=== PATIENT | female | born 1940 | race Caucasian/White ===

== ENCOUNTER 2017-09-20 10:00 | Outpatient (RCR) | payer MEDICARE, SELFPAY | END 2017-10-01 | LOC: PT 10:00 | PROVIDERS: Visit Provider Nurse Practitioner Family | DX: L97.229 Non-pressure chronic ulcer of left calf with unspecified severity (principal) | CPT/HCPCS: G8990; G8991; G8992; 97161; 97597 ==

== ENCOUNTER → 2017-10-05 15:04 | Outpatient (CLI) | payer MEDICARE, SELFPAY ==
--- NOTE | 2017-10-05 15:31 | CT_ITS ---
CT chest wo con HISTORY: ITS.REASON: LUNG NODULES ORDERING PHYSICIAN: Antolin Ferrer MD PATIENT AGE: 77 years TECHNIQUE: Axial acquisition obtained without contrast. Axial, sagittal, and coronal reformatted images are generated and reviewed. COMPARISON: 06/29/2017 FINDINGS: There is a large hiatal hernia containing nearly the entire stomach as well as a loop of mid transverse colon. There is severe coronary artery calcification and/or stent noted. Normal heart size. There is contour deformity involving the posterior aspect of the heart from the large hiatal hernia. No mediastinal or hilar mass or adenopathy. There is a 7 mm nodule in the right middle lobe anteriorly and laterally. Assess unchanged. An additional 7 mm noncalcified nodule present in the right lower lobe along with a 6 mm subpleural nodular density in the right lower lobe. These nodules are unchanged. There are some atelectatic changes in the right lung base. A 3 mm noncalcified nodule present in the left lower lobe laterally and a 4 mm noncalcified nodule in left lower lobe laterally both and change. An additional 4 mm noncalcified nodule present in the left lower lobe laterally unchanged. No new nodules evident. No effusions or infiltrates. No acute bony anomalies. IMPRESSION: 1. Overall stable CT appearance of the chest. 2. No change bilateral noncalcified pulmonary nodules. Suggest continued 6 month follow-up. 3. Large hiatal hernia. 4. Coronary artery disease
== END ==
PROVIDERS: Family Provider Internal Medicine Adolescent Medicine; PCP Internal Medicine Adolescent Medicine; Visit Provider Internal Medicine Critical Care Medicine
DX: R91.8 Other nonspecific abnormal finding of lung field (principal)
CPT/HCPCS: 71250

== ENCOUNTER → 2018-10-11 09:24 | Outpatient (CLI) | payer MEDICARE, SELFPAY ==
--- NOTE | 2018-10-11 09:27 | MM_ITS ---
MM Dig screening mamm BI w/CAD ORDERING PHYSICIAN : Tara Marquis PATIENT AGE: 78 years GENDER: Female COMPARISON: January INDICATION: ITS.REASON: SCREENING no hormones. No new complaints. Noncontributory family history. Previous percutaneous biopsy right breast noted TECHNIQUE: Standard CC and MLO images were obtained. R2 CAD reviewed. FINDINGS: . Minimal residual fibroglandular elements towards anterior right and left breast Lower density breast with no dominant mass nor suspicious calcification. Vascular calcifications bilaterally RIGHT BREAST:No new findings Previous percutaneous biopsy evident superior breast. Small residual density here stable LEFT BREAST: No significant new findings. . minimal residual fibroglandular elements most evident anterior rest appear similar to studies dating back to 2011 Follow-up in one year -------- IMPRESSION: Stable bilateral mammogram. No new areas of concern. Follow-up in one year recommended BI-RADS Category: 1 Negative RECOMMENDED FOLLOW-UP: 1YR 1 YEAR FOLLOW-UP (A letter has been sent to the patient regarding results of the study.)
== END ==
PROVIDERS: PCP Nurse Practitioner Family; Visit Provider Nurse Practitioner Family
DX: Z12.31 Encounter for screening mammogram for malignant neoplasm of breast (principal)
CPT/HCPCS: 77067

== ENCOUNTER → 2019-05-04 14:21 | Outpatient (CLI) | payer MEDICARE, SELFPAY ==
--- NOTE | 2019-05-04 14:29 | CI_ITS ---
Cerebrovascular Exam Indications: 433.10 Occlusion/stenosis of carotid artery without cerebral infarction. 435.9 Unspecified transient cerebral ischemia. IMPRESSIONS 1. The bilateral vertebral arteries are patent with normal antegrade flow. 2. Study suggests less than 20% stenosis involving the right internal carotid artery and the left internal carotid artery. No change from the study of 14-Oct-2007. Carotid duplex study. Complete study and Doppler flow study including spectral analysis, color and wilcox scale imaging. Location: Vascular laboratory. Patient status: Outpatient. Tables: Arterial flow: + +--------+--------+ Location V sys V ed + +--------+--------+ Right CCA - proximal 70.7cm/s 16.5cm/s + +--------+--------+ Right CCA - distal 57.4cm/s 16.5cm/s + +--------+--------+ Right ECA 84.1cm/s -------- + +--------+--------+ Right ICA - proximal 72.3cm/s 22cm/s + +--------+--------+ Right ICA - mid 93.5cm/s 36.1cm/s + +--------+--------+ Right ICA - distal 74.7cm/s 29.4cm/s + +--------+--------+ Right vertebral 58.9cm/s -------- + +--------+--------+ Left CCA - proximal 95.1cm/s 34.6cm/s + +--------+--------+ Left CCA - distal 105cm/s 34.6cm/s + +--------+--------+ Left ECA 77.8cm/s -------- + +--------+--------+ Left ICA - proximal 80.1cm/s 22cm/s + +--------+--------+ Left ICA - mid 99.8cm/s 35.4cm/s + +--------+--------+ Left ICA - distal 95.1cm/s 42.4cm/s + +--------+--------+ Left vertebral 31.4cm/s -------- + +--------+--------+ Velocity ratios: + + + + + + Right, V sys Right, V ed Left, V sys Left, V ed + + + + + + Max ICA/dist CCA 1.63 2.19 0.95 1.23 + + + + + + (Report amended ) Electronically signed by: Arvin Lyon [id number]
== END ==
PROVIDERS: PCP Internal Medicine Adolescent Medicine; Visit Provider Nurse Practitioner Family
DX: R09.89 Other specified symptoms and signs involving the circulatory and respiratory systems (principal); R42 Dizziness and giddiness
CPT/HCPCS: 93880

== ENCOUNTER → 2019-07-13 13:00 | Outpatient (CLI) | payer MEDICARE, SELFPAY ==
--- NOTE | 2019-07-13 13:02 | CT_ITS ---
PROCEDURE: CT LUNG SCREENING CLINICAL INDICATION: HX TOBACCO USE Thirty pack-year smoking history, asymptomatic for lung cancer COMPARISON: CHWWO CT CHEST W/WO CONTRAST from 06/29/[address] chest wo con from 10/05/2017 TECHNIQUE: The exam was performed on a GE Light Speed [address] scanner using 2.90 mGy CTDI. A low dose helical CT CHEST was performed on a multi-detector scanner. All CT scans at the facility use one or more dose reduction, viz: automated exposure control, ma/kV adjustment per patient size (including targeted exams where dose is matched to indication, i.e. head), or iterative reconstruction technique. The LDCT was performed in a facility that meets the criteria for the screening program. Data regarding this exam was submitted to ACR which is an approved registry. The order for this exam indicates that it came as a result of a lung cancer screening counseling shard decision-making visit that included all the elements required of such a visit including smoking cessation. The radiologist interpreting this exam meets the CMS criteria for the LDCT lung cancer screening program. The exam is reported using the Lung-RADS classification scale and reported to the ACR registry. NOTE: This study was performed for the specific purposes of lung cancer screening and is not an alternative to diagnostic chest CT. RADIATION DOSE: CTDI vol(CT dose Index-volume) = 2.90mG DLP (Dose Length Product) = 94.03 mGcm FINDINGS: Stable subpleural nodular density right upper lobe anteriorly at 5 mm. There is a lobular noncalcified nodule in the right lower lobe posteriorly at 9 mm unchanged with an additional subpleural nodular density in the right lower lobe laterally at 6 mm unchanged. An additional 4 mm subpleural nodular density right lower lobe posteriorly unchanged there is some scarring in the left upper lobe which is unchanged and there are 2 small nodular opacities in the left lung base laterally which are 4 mm and are unchanged. No change 4 mm left lower lobe nodule laterally. Stable parenchymal opacity in the left upper lobe series 3, image 29 measuring 6 mm. No suspicious new nodules are evident. OTHER FINDINGS: There is an old right clavicular fracture. Coronary artery calcifications. Right breast calcification unchanged. Previously noted large hiatal hernia is no longer apparent. There is some thickening of the distal esophagus. Has the patient had an interval surgery? IMPRESSION: BI-RADS category 2 benign findings. Recommend 12 month LDCT follow-up Dictated by: Arvin Lyon MD 07/15/2019 10:20 Electronically signed by Arvin Lyon MD in [place] 07/15/2019 10:20
== END ==
PROVIDERS: PCP Internal Medicine Adolescent Medicine; Visit Provider Nurse Practitioner Family
DX: Z87.891 Personal history of nicotine dependence (principal); Z12.2 Encounter for screening for malignant neoplasm of respiratory organs

== ENCOUNTER → 2020-07-12 15:49 | Outpatient (CLI) | payer MEDICARE, SELFPAY ==
--- NOTE | 2020-07-12 15:53 | MM_ITS ---
PROCEDURE: MM DIG SCREENING MAMM BI W/CAD Digital Breast Tomosynthesis Included CLINICAL INDICATION: SCREENING There is a history of breast cancer in the patient's 2 sisters. There has been a previous biopsy right breast for benign disease. COMPARISON: MG [facility] DIG MAMM-SCREEN SISI from 01/10/2016 MG [facility] DIG MAMM-SCREEN SISI W/CAD from 08/16/2017 [facility] MM Dig screening mamm BI w/CAD from 10/11/2018 TECHNIQUE: Standard CC and MLO images and 3D Tomosynthesis was obtained. R2 CAD reviewed. FINDINGS: Mild scattered fibroglandular densities are seen in both breasts on a background of primarily fatty breast parenchyma. There are few scattered benign-appearing microcalcifications in each breast. There is a biopsy clip right breast. There is a mole marker on each breast. There is arterial calcification in each breast. There is no new or suspicious lesion in either breast and no suspicious microcalcifications. IMPRESSION: Fibrofatty parenchyma with no suspicious lesions seen BI-RAD Category: 2 Benign Finding(s) FOLLOW-UP: 1YR 1 Year Follow-up (A letter has been sent to the patient regarding results of the study.) Dictated by: Dr. Vishal Escobar MD 07/17/2020 08:17 Dr. Vishal Escobar MD in [place] 07/17/2020 08:17
== END ==
PROVIDERS: PCP Internal Medicine Adolescent Medicine; Visit Provider Nurse Practitioner Family
DX: Z12.31 Encounter for screening mammogram for malignant neoplasm of breast (principal)
CPT/HCPCS: 77063; 77067

== ENCOUNTER 2021-02-01 11:34 | Emergency (ER) | payer MEDICARE, SELFPAY ==
[2021-02-01] VITALS (12 sets, daily range): BP systolic 123–170; BP diastolic 58–80; PULSE 62–76; RESP 11–18; TEMP 36.5; O2SAT 98–99; BMI 23.8
[2021-02-01 11:52] LABS: POC Glucose,Bedside 227 (70-110)
--- NOTE | 2021-02-01 11:53 | CT_ITS ---
PROCEDURE INFORMATION: Exam: CT Head Without Contrast Exam date and time: 02/01/2021 11:53 AM Age: 80 years old Clinical indication: Altered mental status/memory loss; Patient HX: Confusion and weakness; Additional info: Confusion/lethargic TECHNIQUE: Imaging protocol: Computed tomography of the head without contrast. Radiation optimization: All CT scans at this facility use at least one of these dose optimization techniques: automated exposure control; mA and/or kV adjustment per patient size (includes targeted exams where dose is matched to clinical indication); or iterative reconstruction. Other technique: STROKE PROTOCOL was implemented. COMPARISON: No relevant prior studies available. FINDINGS: Brain: Prominent sulci. Patchy hypodensity of the cerebral white matter which are nonspecific but likely secondary to microangiopathic changes. Left basal ganglia lacunes. Cerebral ventricles: The ventricles are prominent secondary to diffuse volume loss/atrophy. Bones/joints: Unremarkable. No acute fracture. Paranasal sinuses: Visualized sinuses are unremarkable. No fluid levels. Mastoid air cells: Visualized mastoid air cells are well aerated. Soft tissues: Unremarkable. IMPRESSION: Chronic age related changes but no evidence of acute intracranial pathology. These findings were discussed with JAMES Burns at 12:15 p.m. EST. ASSESSMENT: ASPECTS ([place] Stroke Program Early CT Score) is 10.
--- NOTE | 2021-02-01 12:08 | XR_ITS ---
PROCEDURE INFORMATION: Exam: XR Chest Exam date and time: 02/01/2021 12:08 PM Age: 80 years old Clinical indication: Other: Weak; Additional info: Weak, confused TECHNIQUE: Imaging protocol: XR of the chest. Views: 1 view. COMPARISON: CR (CHEST AP, CHEST, CXR AP LANDSCAPE) 04/19/2019 11:50 AM FINDINGS: Lungs: No evidence of acute pulmonary process. Pleural spaces: Unremarkable. No pleural effusion. No pneumothorax. Heart/Mediastinum: Unremarkable. No cardiomegaly. Vasculature: There is mild tortuosity of the thoracic aorta. Diaphragm: Mild left hemidiaphragm elevation. Bones/joints: Mild degenerative changes of the shoulder joints. IMPRESSION: No evidence of acute pulmonary process.
--- NOTE | 2021-02-01 12:12 | HMH.EDGENADL ---
ED Disposition Clinical Impression: Altered mental status Qualifiers: Altered mental status type: somnolence Qualified Code(s): R40.0 - Somnolence Disposition: Home, Self-Care Condition on Discharge: Good Instructions: DI for Altered Mental Status Additional Instructions: Make sure you get plenty to eat today. Return to the emergency department if symptoms recur. No Ativan or alcohol for the remainder of today. Referrals: Tara Marquis APRN [Primary Care Provider] - - Critical Care Critical Care Time: No Attestation: On 02/01/21, the high probability of a clinically significant, sudden or life threatening deterioration of the following system(s) required my full and direct attention, intervention and personal management. The time I documented below is in addition to time spent performing reported procedures but includes the following listed in this critical care notation. Medical Decision Making - Terry Inquiry Pt receiving controlled substance: No Vital Signs: 02/01/21 11:35 02/01/21 12:16 02/01/21 12:30 Temperature 97.7 F Temperature Source Oral Pulse Rate 74 Pulse Rate [Left Radial] 76 Respiratory Rate 18 13 Blood Pressure 142/70 H 123/77 Blood Pressure [Right Arm] 132/58 L Blood Pressure Mean Blood Pressure Mean [Right Arm] 82 Blood Pressure Source Blood Pressure Source [Right Arm] Automatic Cuff Blood Pressure Position Blood Pressure Position [Right Arm] Sitting 02 Sat by Pulse Oximetry 98 98 Oxygen Delivery Method Room Air 02/01/21 13:00 02/01/21 13:45 02/01/21 14:01 Temperature Temperature Source Pulse Rate Pulse Rate [Left Radial] Respiratory Rate 11 L 18 12 Blood Pressure 147/72 H 136/63 159/71 H Blood Pressure [Right Arm] Blood Pressure Mean Blood Pressure Mean [Right Arm] Blood Pressure Source Blood Pressure Source [Right Arm] Blood Pressure Position Blood Pressure Position [Right Arm] 02 Sat by Pulse Oximetry Oxygen Delivery Method 02/01/21 14:30 02/01/21 15:00 02/01/21 15:31 Temperature Temperature Source Pulse Rate Pulse Rate [Left Radial] Respiratory Rate 13 14 16 Blood Pressure 168/80 H 170/75 H 155/69 H Blood Pressure [Right Arm] Blood Pressure Mean 97 Blood Pressure Mean [Right Arm] Blood Pressure Source Blood Pressure Source [Right Arm] Blood Pressure Position Blood Pressure Position [Right Arm] 02 Sat by Pulse Oximetry 98 Oxygen Delivery Method 02/01/21 16:00 02/01/21 16:30 02/01/21 17:27 Temperature 97.7 F Temperature Source Oral Pulse Rate 73 62 62 Pulse Rate [Left Radial] Respiratory Rate 17 17 Blood Pressure 165/75 H 159/76 H 159/76 H Blood Pressure [Right Arm] Blood Pressure Mean 106 103 Blood Pressure Mean [Right Arm] Blood Pressure Source Automatic Cuff Blood Pressure Source [Right Arm] Blood Pressure Position Sitting Blood Pressure Position [Right Arm] 02 Sat by Pulse Oximetry 99 98 Oxygen Delivery Method Room Air - Lab Data Lab Results 02/01/21 11:44: POC Glucose 227 H 02/01/21 12:54: WBC 4.7 L, RBC 3.81 L, Hgb 11.6 L, Hct 35.1 L, MCV 92.2, MCH 30.4, MCHC 32.9, RDW 13.6, Plt Count 148, MPV 10.8 H, Neut % (Auto) 65.5, Lymph % (Auto) 24.4, Ada % (Auto) 7.1, Eos % (Auto) 2.3, Baso % (Auto) 0.8, Neut # (Auto) 3.1, Lymph # (Auto) 1.1, Ada # (Auto) 0.3, Eos # (Auto) 0.1, Baso # (Auto) 0.0 02/01/21 12:54: Sodium 142, Potassium 3.8, Chloride 113 H, Carbon Dioxide 25, Anion Gap 7.8, BUN 32 H, Creatinine 1.20 H, Estimated Creat Clear 36, Estimated GFR 43 L, Est GFR ( Amer) 53 L, Glucose 66 L, Calcium 9.4, Total Bilirubin 0.5, AST 27, ALT 14, Alkaline Phosphatase 62, Troponin I < 0.01, Total Protein 6.6, Albumin 3.9, Globulin 2.7, Albumin/Globulin Ratio 1.4 02/01/21 12:54: Plasma/Serum Alcohol < 10 02/01/21 14:02: POC Glucose 230 H 02/01/21 15:51: Urine Color Yellow, Urine Appearance Cloudy, Urine pH 5.0, Ur Spe
--- NOTE | 2021-02-01 12:14 | PC.NURSE ---
[facility] calling at this time.
[2021-02-01 13:04] LABS: Basophils % 0.8 % (0.1-2.0); Eosinophils # 0.1 K/mm3 (0.0-0.4); Eosinophils % 2.3 % (0.1-12.0); Hematocrit 35.1 % (37.0-47.0); Hemoglobin 11.6 g/dL (12.2-16.2); Lymphocytes # 1.1 K/mm3 (0.7-4.5); Lymphocytes % 24.4 % (10-50); Mean Corpuscular HGB Conc 32.9 g/dL (31.8-35.4); Mean Corpuscular Hemoglobin 30.4 pg (27.0-31.2); Mean Corpuscular Volume 92.2 fl (81-99); Mean Platelet Volume 10.8 fl (7.4-10.4); Monocytes # 0.3 K/mm3 (0.1-1.0); Monocytes % 7.1 % (1.7-9.3); Neutrophils # 3.1 K/mm3 (1.8-7.8); Neutrophils % 65.5 % (37.0-80.0); Platelet Count 148 K/mm3 (142-424); Red Blood Count 3.81 M/mm3 (4.20-5.40); Red Cell Distribution Width 13.6 % (11.5-17.5); White Blood Count 4.7 K/mm3 (4.8-10.8)
[2021-02-01 13:08] LABS: Chloride 113 mmol/L (98-107)
[2021-02-01 13:09] LABS: Potassium 3.8 mmoL/L (3.5-5.1); Sodium 142 mmol/L (136-145)
[2021-02-01 13:11] LABS: Alanine Aminotransferase 14 U/L (12-78); Albumin Level 3.9 g/dl (3.5-5.0); Albumin/Globulin Ratio 1.4 (1.1-1.8); Alkaline Phosphatase 62 U/L (38-126); Anion Gap 7.8 mEq/L (5-15); Aspartate Amino Transferase 27 U/L (14-36); Bilirubin,Total 0.5 mg/dl (0.2-1.3); Blood Urea Nitrogen 32 mg/dl (7-17); Calcium 9.4 mg/dl (8.4-10.2); Carbon Dioxide 25 mmol/L (22.0-30.0); Creatinine Clearance Estimated 36 mL/min (50-200); Estimated Glomerular Filt Rate 43 ml/min (>60); GFR (African American) 53 ML/MIN (>60); Globulin 2.7 g/dL (1.3-3.2); Glucose 66 mg/dl (74-100); Total Protein,Serum 6.6 g/dl (6.3-8.2)
[2021-02-01 13:13] LABS: Ethyl Alcohol < 10 mg/dl (0-10)
[2021-02-01 13:28] LABS: Troponin I < 0.01 ng/ml (0.00-0.034)
--- NOTE | 2021-02-01 13:54 | ECG_ITS ---
APPROVED REPORT Exam: Resting ECG HR:56 bpm ECG Measurements Heart Rate 56 AXES NM 186 P 52 QRSd 76 QRS -11 QT 460 T 97 QTc 443 Conclusion Sinus bradycardia Possible Left atrial enlargement Abnormal QRS-T angle, consider primary T wave abnormality Abnormal ECG Electronically signed by : Srinivasan Smith, 02/02/2021 07:31:11
--- NOTE | 2021-02-01 14:03 | PC.NURSE ---
fsbs 230 upon recheck.
[2021-02-01 14:09] LABS: POC Glucose,Bedside 230 (70-110)
--- NOTE | 2021-02-01 14:11 | PC.NURSE ---
repeat random glucose drawn and sent to lab.
--- NOTE | 2021-02-01 15:18 | PC.NURSE ---
FSBS checked with another meter and it read 83. aware. He ordered meds and requested that pt eat. Pt is sitting up in bed eating peanut butter and crackers and drinking a pepsi.
--- NOTE | 2021-02-01 15:42 | PC.NURSE ---
Pt to restroom, pt is walking a lot better than she was upon arrival.
[2021-02-01 15:58] LABS: Microscopic, Urine URINE MICROSCOPIC (MICROSCOPIC)
[2021-02-01 16:00] LABS: Appearance,Urine CLOUDY (Clear); Bilirubin,Urine Negative (Negative); Blood, Urine 1+ (Negative); Color,Urine YELLOW (Yellow); Glucose,Urine (UA) Negative (Negative); Ketones,Urine Negative (Negative); Leukocyte Esterase,Urine 2+ (Negative); Nitrate,Urine POSITIVE (Negative); Protein,Urine TRACE (Negative); Specific Gravity, Urine >= 1.030 (1.005-1.030); Urobilinogen,Urine 0.2 EU/dl (0.2)
[2021-02-01 16:08] LABS: Bacteria,Urine 2+ /lpf; WBC,Urine 20-50 #/hpf (0-3)
[2021-02-01 16:12] LABS: Amphetamine/Metha Screen,Urine Negative ng/ml (<1000)
[2021-02-01 16:13] LABS: Barbiturates Screen,Urine Negative ng/ml (<200); Benzodiazepines Screen,Urine Positive ng/ml (<200)
[2021-02-01 16:14] LABS: Cannabinoid Screen,Urine Negative ng/ml (<50); Cocaine Screen,Urine Negative ng/ml (<300)
[2021-02-01 16:15] LABS: Methadone Screen,Urine Negative ng/ml (<300)
[2021-02-01 16:16] LABS: Opiate Screen,Urine Negative ng/ml (<300); Phencyclidine Screen,Urine Negative ng/ml (<25)
[2021-02-01 17:08] LABS: Troponin I < 0.01 ng/ml (0.00-0.034)
[2021-02-01 19:44] LABS: POC Glucose,Bedside 274 (70-110)
[2021-02-01 19:44] LABS: POC Glucose,Bedside 83 (70-110)
== END 2021-02-01 17:28 | disposition home or self-care (01) ==
PROVIDERS: Emergency Provider Emergency Medicine; PCP Nurse Practitioner Family
DX: R41.82 Altered mental status, unspecified (principal); T42.4X1A Poisoning by benzodiazepines, accidental (unintentional), initial encounter; Y92.89 Other specified places as the place of occurrence of the external cause; F10.10 Alcohol abuse, uncomplicated; E11.649 Type 2 diabetes mellitus with hypoglycemia without coma; R29.700 NIHSS score 0; I10 Essential (primary) hypertension; E78.5 Hyperlipidemia, unspecified; I25.10 Atherosclerotic heart disease of native coronary artery without angina pectoris
CPT/HCPCS: 36415; 70450; 71045; 80053; 80305; 81001; 82962; 84484; 85025; 87086; 87088; 87186; 93005; 96374; 99283

== ENCOUNTER → 2021-03-14 18:00 | Outpatient (CLI) | payer MEDICARE, SELFPAY ==
[2021-03-14 18:15] LABS: Basophils % 0.6 % (0.1-2.0); Eosinophils # 0.2 K/mm3 (0.0-0.4); Eosinophils % 3.2 % (0.1-12.0); Hematocrit 34.7 % (37.0-47.0); Hemoglobin 11.5 g/dL (12.2-16.2); Lymphocytes # 1.3 K/mm3 (0.7-4.5); Lymphocytes % 27.9 % (10-50); Mean Corpuscular HGB Conc 33.3 g/dL (31.8-35.4); Mean Corpuscular Volume 90.1 fl (81-99); Mean Platelet Volume 13.1 fl (7.4-10.4); Monocytes # 0.3 K/mm3 (0.1-1.0); Monocytes % 6.6 % (1.7-9.3); Neutrophils # 2.9 K/mm3 (1.8-7.8); Neutrophils % 61.7 % (37.0-80.0); Platelet Count 135 K/mm3 (142-424); Red Blood Count 3.85 M/mm3 (4.20-5.40); Red Cell Distribution Width 13.6 % (11.5-17.5); White Blood Count 4.7 K/mm3 (4.8-10.8)
[2021-03-14 18:21] LABS: Chloride 103 mmol/L (98-107); Potassium 4.8 mmoL/L (3.5-5.1); Sodium 137 mmol/L (136-145)
[2021-03-14 18:23] LABS: Alanine Aminotransferase 13 U/L (12-78); Aspartate Amino Transferase 26 U/L (14-36); Blood Urea Nitrogen 24 mg/dl (7-17); Estimated Glomerular Filt Rate 54 ml/min (>60); GFR (African American) 65 ML/MIN (>60)
[2021-03-14 18:24] LABS: Albumin Level 3.9 g/dl (3.5-5.0); Albumin/Globulin Ratio 1.6 (1.1-1.8); Alkaline Phosphatase 67 U/L (38-126); Anion Gap 11.8 mEq/L (5-15); Bilirubin,Total 0.6 mg/dl (0.2-1.3); Carbon Dioxide 27 mmol/L (22.0-30.0); Chol/HDL Ratio 1.8 (1-3.5); Cholesterol 140 mg/dl (140-200); Globulin 2.5 g/dL (1.3-3.2); Glucose 91 mg/dl (74-100); HDL Cholesterol 79 mg/dl (40-60); Total Protein,Serum 6.4 g/dl (6.3-8.2); Triglycerides 46 mg/dl (30-150); VLDL Cholesterol 9 mg/dL (0-40)
[2021-03-14 19:25] LABS: Direct LDL Cholesterol 51.14 mg/dL (100-129)
[2021-03-14 19:58] LABS: 25-OH Vitamin D, Total 31.3 ng/mL (30-100)
== END ==
PROVIDERS: Visit Provider Nurse Practitioner Family
DX: E11.69 Type 2 diabetes mellitus with other specified complication (principal); I10 Essential (primary) hypertension; E03.9 Hypothyroidism, unspecified; E55.9 Vitamin D deficiency, unspecified; D61.818 Other pancytopenia; R35.0 Frequency of micturition
CPT/HCPCS: 80053; 80061; 82306; 83036; 84443; 85025; 87086; 87088; 87186

== ENCOUNTER 2021-06-04 19:32 | Emergency (ER) | payer MEDICARE, SELFPAY ==
[2021-06-04 19:26] VITALS: BP 150/63; PULSE 88; RESP 20; TEMP 39.6; O2SAT 96; BMI 23.8
[2021-06-04 19:29] VITALS: BMI 26.6
--- NOTE | 2021-06-04 19:31 | XR_ITS ---
PROCEDURE INFORMATION: Exam: XR Chest Exam date and time: 06/04/2021 7:31 PM Age: 80 years old Clinical indication: Fever; Additional info: Fever, weakness TECHNIQUE: Imaging protocol: XR of the chest. Views: 2 views. COMPARISON: CR XR CHEST PORTABLE 02/01/2021 12:14 PM FINDINGS: Lungs: Borderline pulmonary hyperinflation, mild flattening of the right diaphragm particularly on the lateral view. No pulmonary consolidation. No definite acute findings. Pleural spaces: Unremarkable. No significant pleural effusion. No pneumothorax. Heart/Mediastinum: The cardiac silhouette is normal. Bones/joints: Osteopenia. There are spinal degenerative changes, with multilevel disc narrrowing and spondylosis. No acute appearing fracture or high-grade listhesis, as visualized. Old healed right clavicle fracture deformity. Gastrointestinal tract: Gaseous distention of multiple small intestinal loops in the epigastrium. No free intraperitoneal air is seen. Other findings: Overlying monitor technician electrodes. IMPRESSION: 1. No acute findings. 2. Multiple nonemergency and chronic findings as above.
[2021-06-04 19:40] LABS: Coronavirus 19, PCR Not Detected (NotDetected); Influenza A, PCR Not Detected (NotDetected); Influenza B, PCR Not Detected (NotDetected)
[2021-06-04 20:02] LABS: Basophils # 0.1 K/mm3 (0-0.2); Basophils % 0.8 % (0.1-2.0); Eosinophils % 0.4 % (0.1-12.0); Hematocrit 35.6 % (37.0-47.0); Hemoglobin 11.5 g/dL (12.2-16.2); Lymphocytes # 0.4 K/mm3 (0.7-4.5); Lymphocytes % 6.7 % (10-50); Mean Corpuscular HGB Conc 32.2 g/dL (31.8-35.4); Mean Corpuscular Hemoglobin 30.4 pg (27.0-31.2); Mean Corpuscular Volume 94.5 fl (81-99); Mean Platelet Volume 10.1 fl (7.4-10.4); Monocytes # 0.1 K/mm3 (0.1-1.0); Monocytes % 1.5 % (1.7-9.3); Neutrophils # 5.9 K/mm3 (1.8-7.8); Neutrophils % 90.5 % (37.0-80.0); Platelet Count 160 K/mm3 (142-424); Red Blood Count 3.77 M/mm3 (4.20-5.40); Red Cell Distribution Width 13.9 % (11.5-17.5); White Blood Count 6.6 K/mm3 (4.8-10.8)
[2021-06-04 20:04] LABS: Chloride 102 mmol/L (98-107); MANUAL DIFFERENTIAL MANUAL DIFFERENTIAL (MANUAL DIFF)
[2021-06-04 20:05] LABS: Potassium 4.4 mmoL/L (3.5-5.1); Sodium 136 mmol/L (136-145)
[2021-06-04 20:07] LABS: Alanine Aminotransferase 9 U/L (12-78); Alkaline Phosphatase 78 U/L (38-126); Aspartate Amino Transferase 21 U/L (14-36); Bilirubin,Total 0.8 mg/dl (0.2-1.3); Blood Urea Nitrogen 17 mg/dl (7-17); Creatinine Clearance Estimated 47 mL/min (50-200); Estimated Glomerular Filt Rate 48 ml/min (>60); GFR (African American) 58 ML/MIN (>60); Lactic Acid 1.2 mmol/L (0.7-2.1)
[2021-06-04 20:08] LABS: Albumin Level 3.4 g/dl (3.5-5.0); Albumin/Globulin Ratio 1.3 (1.1-1.8); Anion Gap 11.4 mEq/L (5-15); Calcium 8.7 mg/dl (8.4-10.2); Carbon Dioxide 27 mmol/L (22.0-30.0); Globulin 2.7 g/dL (1.3-3.2); Glucose 144 mg/dl (74-100); Total Protein,Serum 6.1 g/dl (6.3-8.2)
[2021-06-04 20:16] LABS: NT Pro Brain Natriuretic Pep. 782 pg/mL (0-450)
[2021-06-04 20:19] LABS: Troponin I 0.02 ng/ml (0.00-0.034)
[2021-06-04 20:26] LABS: Procalcitonin 0.321 ng/mL (0.0-2.0); T4 (Thyroxine) 5.6 ug/dl (5.53-11.0)
[2021-06-04 20:37] VITALS: BP 138/67; PULSE 87; O2SAT 95
[2021-06-04 20:39] LABS: Thyroid Stimulating Hormone 2.46 uIU/mL (0.465-4.68)
[2021-06-04 20:42] LABS: Microscopic, Urine URINE MICROSCOPIC (MICROSCOPIC)
[2021-06-04 20:55] LABS: Appearance,Urine CLEAR (Clear); Bilirubin,Urine Negative (Negative); Blood, Urine 2+ (Negative); Color,Urine YELLOW (Yellow); Glucose,Urine (UA) Negative (Negative); Ketones,Urine Negative (Negative); Leukocyte Esterase,Urine 2+ (Negative); Nitrate,Urine Negative (Negative); Protein,Urine 1+ (Negative); Urobilinogen,Urine 0.2 EU/dl (0.2)
[2021-06-04 20:55] LABS: Corrected White Blood Count 6.3 K/mm3 (4.8-10.8); Lymphocytes % 5 % (10-50); Monocytes % 2 % (2-9); Neutrophils % 93 % (42-76); Nucleated Red Blood Cells 5; Platelet Estimate Normal; RBC Morphology Normal; Total Cells Counted 100
[2021-06-04 20:58] VITALS: TEMP 37.7
[2021-06-04 21:00] VITALS: BP 107/45; PULSE 76; O2SAT 93
[2021-06-04 21:01] LABS: Erythrocyte Sedimentation Rate 47 mm/hr (0-30)
--- NOTE | 2021-06-04 21:11 | HMH.EDGENADL ---
ED Disposition Clinical Impression: Pyelonephritis Disposition: Home, Self-Care Condition on Discharge: Good Instructions: DI for Kidney Infection Additional Instructions: Take the entire course of the antibiotics and follow-up with your primary care provider in 2 to 3 days if fever persist. Turn to the ED for any new or worsening symptoms. Prescriptions: Cefdinir [Omnicef 300mg Capsule] 300 mg PO BID #20 cap [facility]: [id number] Ondansetron [Zofran 4mg ODT] 4 mg PO TIDP PRN 3 Days #9 tab PRN Reason: Nausea Transmission Status: [facility] to [facility] Referrals: Srinivasan Smith MD [Primary Care Provider] - Time of Disposition: 21:40 - Critical Care Critical Care Time: No Attestation: On 06/04/21, the high probability of a clinically significant, sudden or life threatening deterioration of the following system(s) required my full and direct attention, intervention and personal management. The time I documented below is in addition to time spent performing reported procedures but includes the following listed in this critical care notation. Medical Decision Making - Medical Records Medical records reviewed: Yes: I reviewed the patient's medical records. - Terry Inquiry Pt receiving controlled substance: No Vital Signs: 06/04/21 19:26 06/04/21 20:37 06/04/21 20:58 Temperature 103.2 F H 99.9 F H Temperature Source Oral Oral Pulse Rate 87 Pulse Rate [Bilateral Radial] 88 Respiratory Rate 20 Blood Pressure 138/67 Blood Pressure [Right Arm] 150/63 H Blood Pressure Mean [Right Arm] 92 Blood Pressure Source [Right Arm] Automatic Cuff Blood Pressure Position [Right Arm] Sitting 02 Sat by Pulse Oximetry 96 95 Oxygen Delivery Method Room Air Room Air 06/04/21 21:00 Temperature Temperature Source Pulse Rate 76 Pulse Rate [Bilateral Radial] Respiratory Rate Blood Pressure 107/45 L Blood Pressure [Right Arm] Blood Pressure Mean [Right Arm] Blood Pressure Source [Right Arm] Blood Pressure Position [Right Arm] 02 Sat by Pulse Oximetry 93 L Oxygen Delivery Method Room Air - Lab Data Lab Results 06/04/21 19:20: SARS-CoV-2 (PCR) Not detected, Influenza A Untype (PCR) Not detected, Influenza Type B (PCR) Not detected 06/04/21 19:30: WBC 6.6, Corrected WBC 6.3, RBC 3.77 L, Hgb 11.5 L, Hct 35.6 L, MCV 94.5, MCH 30.4, MCHC 32.2, RDW 13.9, Plt Count 160, MPV 10.1, Neut % (Auto) 90.5 H, Lymph % (Auto) 6.7 L, [place] % (Auto) 1.5 L, Eos % (Auto) 0.4, Baso % (Auto) 0.8, Neut # (Auto) 5.9, Lymph # (Auto) 0.4 L, [place] # (Auto) 0.1, Eos # (Auto) 0.0, Baso # (Auto) 0.1, Total Counted 100, Neutrophils % (Manual) 93 H, Lymphocytes % (Manual) 5 L, Monocytes % (Manual) 2, Nucleated RBCs 5, Platelet Estimate Normal, RBC Morphology Normal 06/04/21 19:30: Sodium 136, Potassium 4.4, Chloride 102, Carbon Dioxide 27, Anion Gap 11.4, BUN 17, Creatinine 1.10 H, Estimated Creat Clear 47, Estimated GFR 48 L, Est GFR ( Amer) 58 L, Glucose 144 H, Calcium 8.7, Total Bilirubin 0.8, AST 21, ALT 9 L, Alkaline Phosphatase 78, Troponin I 0.02, C-Reactive Protein 33.0 H, NT-Pro-B Natriuret Pep 782 H, Total Protein 6.1 L, Albumin 3.4 L, Globulin 2.7, Albumin/Globulin Ratio 1.3 06/04/21 19:30: Lactate 1.2 06/04/21 19:30: ESR 47 H 06/04/21 19:30: Procalcitonin 0.321, TSH 2.46, Thyroxine (T4) 5.6 06/04/21 20:37: Urine Color Yellow, Urine Appearance Clear, Urine pH 6.0, Ur Specific [place] 1.020, Urine Protein 1+, Urine Glucose (UA) Negative, Urine Ketones Negative, Urine Blood 2+, Urine Nitrate Negative, Urine Bilirubin Negative, Urine Urobilinogen 0.2, Ur Leukocyte Esterase 2+ A, Urine RBC 5-10, Urine WBC 10-20, Ur Squamous Epith Cells 3-5, Urine Bacteria 4+ Result diagrams: 06/04/21 19:30 06/04/21 19:30 Orders (Tests/Meds): ED MEDICATIONS Generic Name Dose Route Start Last Admin Trade Name Freq PRN Reason Stop Dose Admin Ceftriaxone Sodium 1 gm/ 50 mls @ 100
[2021-06-04 21:25] LABS: Bacteria,Urine 4+ /lpf
[2021-06-04 21:54] VITALS: BP 115/54; PULSE 72; RESP 18; TEMP 37.7; O2SAT 94
== END 2021-06-04 21:56 | disposition home or self-care (01) ==
PROVIDERS: Emergency Provider Student in an Organized Health Care Education/Training Program; PCP Internal Medicine Adolescent Medicine
DX: N10 Acute pyelonephritis (principal); B96.20 Unspecified Escherichia coli [E. coli] as the cause of diseases classified elsewhere; I25.10 Atherosclerotic heart disease of native coronary artery without angina pectoris; E11.9 Type 2 diabetes mellitus without complications; I10 Essential (primary) hypertension; E78.5 Hyperlipidemia, unspecified; R06.09 Other forms of dyspnea; Z20.822 Contact with and (suspected) exposure to COVID-19
CPT/HCPCS: 71046; 80053; 81001; 83605; 83880; 84145; 84436; 84443; 84484; 85007; 85025; 85651; 86140; 87040; 87086; 87088; 87186; 96374; 99284; U0003

== ENCOUNTER → 2022-03-19 10:19 | Outpatient (CLI) | payer MEDICARE, SELFPAY ==
--- NOTE | 2022-03-19 10:24 | MM_ITS ---
PROCEDURE INFORMATION: Exam: MG Bilateral Screening 3D Mammography Exam date and time: 03/19/2022 10:24 AM Age: 81 years old Clinical indication: Screening mammogram. TECHNIQUE: Imaging protocol: Bilateral Screening tomosynthesis and 2D mammography including computer-aided detection (CAD) when performed. COMPARISON: 1. MG MM DIG SCREENING MAMM BI W/CAD 07/12/2020 3:51 PM 2. MG [facility] MM Dig screening mamm BI w/CAD 10/11/2018 9:54 AM 3. MG DMSB DIG MAMM-SCREEN SISI W/CAD 08/16/2017 10:15 AM 4. MG DMSB DIG MAMM-SCREEN SISI 01/10/2016 3:41 PM FINDINGS: MAMMOGRAPHY: Breast composition: There are scattered areas of fibroglandular density. Mass: None. Architectural distortion: No new or suspicious architectural distortion. Calcifications: Stable benign-appearing calcifications are present. No new or suspicious cluster of microcalcifications have developed. Asymmetric density: No new or suspicious asymmetric density is present Skin thickening: None. Axillary adenopathy: None. IMPRESSION: No mammographic evidence of malignancy. Recommend annual screening mammography unless otherwise clinically indicated. ASSESSMENT: BI-RADS category 2: Benign
== END ==
PROVIDERS: PCP Internal Medicine Adolescent Medicine; Visit Provider Nurse Practitioner Family
DX: Z12.31 Encounter for screening mammogram for malignant neoplasm of breast (principal)
CPT/HCPCS: 77063; 77067

== ENCOUNTER → 2022-09-07 13:48 | Outpatient (CLI) | payer MEDICARE, SELFPAY ==
--- NOTE | 2022-09-07 13:54 | MR_ITS ---
FINAL REPORT CLINICAL HISTORY: Memory loss FINDINGS: Multiplanar MR imaging of the brain was performed without contrast. 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 There is mild age-appropriate atrophy. There are scattered foci of increased T2 signal in the cerebral white matter that have a nonspecific appearance but likely represent moderate chronic ischemic/gliotic changes. There is no evidence of intracranial hemorrhage or mass. No abnormal ventricular dilatation is identified. No abnormal extra-axial fluid collection is seen. No abnormality is seen on the diffusion weighted images. The posterior fossa and brainstem are unremarkable. Normal major vessel vascular flow voids are seen. IMPRESSION: Age-appropriate atrophy and mild chronic ischemic/gliotic changes. No acute intracranial abnormality. Reviewed, Interpreted and Dictated by Shashank Farr III, MD Transcribed by Monae Stinson Authenticated and [facility]
== END ==
PROVIDERS: PCP Internal Medicine Adolescent Medicine; Visit Provider Specialist
DX: G31.84 Mild cognitive impairment of uncertain or unknown etiology (principal)
CPT/HCPCS: 70551

== ENCOUNTER → 2022-10-12 12:33 | Outpatient (CLI) | payer MEDICARE, SELFPAY ==
[2022-10-12 13:33] LABS: Basophils % 0.6 % (0.1-2.0); Eosinophils # 0.2 K/mm3 (0.0-0.4); Hematocrit 37.7 % (37.0-47.0); Lymphocytes # 1.4 K/mm3 (0.7-4.5); Lymphocytes % 26.9 % (10-50); Mean Corpuscular HGB Conc 31.8 g/dL (31.8-35.4); Mean Corpuscular Hemoglobin 29.1 pg (27.0-31.2); Mean Corpuscular Volume 91.4 fl (81-99); Mean Platelet Volume 10.4 fl (7.4-10.4); Monocytes # 0.3 K/mm3 (0.1-1.0); Monocytes % 5.7 % (1.7-9.3); Neutrophils # 3.2 K/mm3 (1.8-7.8); Neutrophils % 63.7 % (37.0-80.0); Platelet Count 149 K/mm3 (142-424); Red Blood Count 4.12 M/mm3 (4.20-5.40); Red Cell Distribution Width 14.1 % (11.5-17.5); White Blood Count 5.1 K/mm3 (4.8-10.8)
[2022-10-12 13:51] LABS: Alanine Aminotransferase 13 U/L (12-78); Albumin Level 3.9 g/dl (3.5-5.0); Albumin/Globulin Ratio 1.3 (1.1-1.8); Alkaline Phosphatase 94 U/L (38-126); Anion Gap 10.5 mEq/L (5-15); Aspartate Amino Transferase 25 U/L (14-36); Bilirubin,Total 0.3 mg/dl (0.2-1.3); Blood Urea Nitrogen 27 mg/dl (7-17); Calcium 9.4 mg/dl (8.4-10.2); Carbon Dioxide 29 mmol/L (22.0-30.0); Chloride 104 mmol/L (98-107); Estimated Glomerular Filt Rate 43 ml/min (>60); GFR (African American) 52 ML/MIN (>60); Glucose 101 mg/dl (74-100); Potassium 4.5 mmoL/L (3.5-5.1); Sodium 139 mmol/L (136-145); Total Protein,Serum 6.9 g/dl (6.3-8.2)
[2022-10-12 14:21] LABS: Thyroid Stimulating Hormone 1.76 uIU/mL (0.465-4.68)
[2022-10-12 14:26] LABS: Erythrocyte Sedimentation Rate 28 mm/hr (0-30)
[2022-10-12 14:57] LABS: Vitamin B12 900 pg/mL (239-931)
[2022-10-13 13:54] LABS: Rapid Plasma Reagin Ab Titer Non Reactive (NonRea<1:1)
[2022-10-13 14:30] LABS: Anti-Centromere B Antibodies <0.2 AI (0.0-0.9); Anti-DNA (DS) Ab Qn 2 IU/mL (0-9); Anti-Jo-1 <0.2 AI (0.0-0.9); Anti-Smith Antibody <0.2 AI (0.0-0.9); Antichromatin Antibodies 0.6 AI (0.0-0.9); Antiscleroderma-70 Antibodies <0.2 AI (0.0-0.9); RNP Antibodies 0.3 AI (0.0-0.9); Sjogren's Anti-SS-A <0.2 AI (0.0-0.9); Sjogren's Anti-SS-B <0.2 AI (0.0-0.9)
== END ==
PROVIDERS: PCP Internal Medicine Adolescent Medicine; Visit Provider Specialist
DX: R40.0 Somnolence (principal); E03.9 Hypothyroidism, unspecified; E78.5 Hyperlipidemia, unspecified; G31.84 Mild cognitive impairment of uncertain or unknown etiology; G47.33 Obstructive sleep apnea (adult) (pediatric); R07.9 Chest pain, unspecified
CPT/HCPCS: 36415; 80053; 82607; 82746; 84443; 85025; 85651; 86225; 86235; 86593

== ENCOUNTER 2022-10-19 11:45 | Observation (INO) | payer MEDICARE, SELFPAY ==
[2022-10-19] VITALS (8 sets, daily range): BP systolic 160–193; BP diastolic 68–101; PULSE 71–103; RESP 16–20; TEMP 36.6–37.1; O2SAT 96–100; BMI 22.1; BMI 22.3
[2022-10-19 12:30] LABS: Basophils % 0.3 % (0.1-2.0); Eosinophils % 0.1 % (0.1-12.0); Hematocrit 38.5 % (37.0-47.0); Hemoglobin 12.5 g/dL (12.2-16.2); Lymphocytes # 0.9 K/mm3 (0.7-4.5); Lymphocytes % 11.1 % (10-50); Mean Corpuscular HGB Conc 32.5 g/dL (31.8-35.4); Mean Corpuscular Hemoglobin 28.8 pg (27.0-31.2); Mean Corpuscular Volume 88.5 fl (81-99); Mean Platelet Volume 11.2 fl (7.4-10.4); Monocytes # 0.2 K/mm3 (0.1-1.0); Monocytes % 2.9 % (1.7-9.3); Neutrophils # 7.1 K/mm3 (1.8-7.8); Neutrophils % 85.5 % (37.0-80.0); Platelet Count 149 K/mm3 (142-424); Red Blood Count 4.36 M/mm3 (4.20-5.40); Red Cell Distribution Width 14.4 % (11.5-17.5); White Blood Count 8.3 K/mm3 (4.8-10.8)
--- NOTE | 2022-10-19 12:30 | HMH.EDUROGF ---
Discharge Plan Disposition Patient Disposition: Admitted as Observation Chief Complaint: Urogenital-Female Clinical Impressions Clinical Impression: Acute UTI (urinary tract infection), Acute delirium, ASHLEY (acute kidney injury) Discharge ED Provider: Eliu Mckinley Female Urogenital HPI General Chief complaint: Urogenital-Female Stated complaint: Physician referral, Possible UTI dehydration Time Seen by Provider: 10/19/22 12:30 Mode of Arrival: Ambulatory Source of Information: Patient, Relative and Medical Record Limitations: No Limitations Description of Symptoms (Recalled from ER Triage Doc. by RN): pt comes in from pcp office. pt was seen wednesday for possible urine or kidney infection, and hallucinations. the hallucinations began wednesday after the pcp appt. the last episode was last night. pt feels that she is dehydrated. History of Present Illness HPI Narrative: wf sent from pcp office for confusion and dec po intake - pt has been treated for uti - family reports continued sx - reports from cooper obtained and reviewed - MD Complaint: UTI and other (confusion) Onset (ago): day(s) Severity: moderate Related Data Home Medications Medication Instructions Recorded Confirmed amlodipine 10 mg tablet 10 mg PO DAILY blood pressure 10/18/18 10/12/22 aspirin 81 mg tablet,delayed 81 mg PO DAILY thinner 10/18/18 10/12/22 release (Aspir-) carvedilol 12.5 mg tablet 12.5 mg PO BID blood pressure 10/18/18 10/12/22 escitalopram oxalate 10 mg tablet 10 mg PO DAILY Anxiety 10/18/18 10/12/22 metformin 500 mg tablet,extended 500 mg PO DAILY Diabetes 10/18/18 10/12/22 release 24 hr (Glucophage XR) biotin 2,500 mcg capsule 2,500 mcg PO DAILY daily 06/04/21 10/12/22 fish oil-dha-epa 1,200 mg-144 1 each PO DAILY Supplement 06/04/21 10/12/22 mg-216 mg capsule atorvastatin 20 mg tablet 80 mg PO DAILY Cholesterol 08/20/22 10/12/22 isosorbide mononitrate 30 mg 30 mg PO DAILY 08/20/22 10/12/22 tablet,extended release 24 hr levothyroxine 100 mcg tablet 125 mcg PO DAILY thyroid 08/20/22 10/12/22 levofloxacin 500 mg tablet 500 mg PO DAILY Infection 10/19/22 10/19/22 Previous Rx's Medication Instructions Recorded ondansetron 4 mg disintegrating 4 mg PO TIDP PRN Nausea 3 days #9 06/04/21 tablet tabs Allergies Allergy/AdvReac Type Severity Reaction Status Date / Time No Known Drug Allergies Allergy Unknown Verified 08/20/22 10:23 [NKDA] [facility] Disclaimer: The information contained in this section may have been updated after the patient was seen, as this information can be updated by other users. Family History (Updated 08/20/22 @ 10:29 by Odilia Ny) Diabetes Coronary artery disease Heart attack Cancer Stroke Social History (Updated 08/20/22 @ 10:30 by Odilia Ny) Smoking Status: Former smoker alcohol intake: current substance use type: denies use current occupational status: employed Travel in the last 8 weeks: None household members: spouse housing: house marital status: number of children: 2 caffeine: No ROS Obtained: Yes All systems reviewed & no additional complaints except as documented Physical Exam General General appearance: alert Head Head exam: normocephalic Eye Eye exam: Present PERRL and EOMI ENT ENT exam: Present mucous membranes moist Neck Neck exam: Present trachea midline Respiratory Respiratory exam: Absent respiratory distress Cardiovascular Cardiovascular exam: Present regular rate and systolic murmur Abdominal Exam Abdominal exam: Present soft; Absent tenderness Extremities Exam Extremities exam: Absent joint swelling Back Exam Back exam: Absent CVA tenderness (R) or CVA tenderness (L) Neurological Exam Neurological exam: Present alert and CN II-XII intact; Absent oriented X3 or motor sensory deficit Psychiatric Psychiatric exam: Present normal affect Skin Skin exam: Absent rash Medical Decision Making Medical Records Ia
[2022-10-19 12:32] LABS: Alanine Aminotransferase 35 U/L (12-78); Albumin Level 4.5 g/dl (3.5-5.0); Albumin/Globulin Ratio 1.2 (1.1-1.8); Alkaline Phosphatase 85 U/L (38-126); Anion Gap 14.8 mEq/L (5-15); Aspartate Amino Transferase 47 U/L (14-36); Bilirubin,Total 0.8 mg/dl (0.2-1.3); Blood Urea Nitrogen 45 mg/dl (7-17); Calcium 9.6 mg/dl (8.4-10.2); Carbon Dioxide 23 mmol/L (22.0-30.0); Chloride 103 mmol/L (98-107); Creatinine Clearance Estimated 19 mL/min (50-200); Estimated Glomerular Filt Rate 23 ml/min (>60); GFR (African American) 27 ML/MIN (>60); Globulin 3.7 g/dL (1.3-3.2); Glucose 108 mg/dl (74-100); Potassium 3.8 mmoL/L (3.5-5.1); Sodium 137 mmol/L (136-145); Total Protein,Serum 8.2 g/dl (6.3-8.2)
[2022-10-19 12:33] LABS: MANUAL DIFFERENTIAL MANUAL DIFFERENTIAL (MANUAL DIFF)
[2022-10-19 12:59] LABS: Lymphocytes % 11 % (10-50); Monocytes % 4 % (2-9); Neutrophils % 85 % (42-76); Platelet Estimate Normal; RBC Morphology Normal; Total Cells Counted 100
--- NOTE | 2022-10-19 13:39 | PC.NURSE ---
dr masters spoke with dr damon
--- NOTE | 2022-10-19 13:51 | PC.NURSE ---
CRUZ ARVIZU SPEAKING WITH DR HERMOSILLO FOR ADMISSION
[2022-10-19 13:55] LABS: Microscopic, Urine URINE MICROSCOPIC (MICROSCOPIC)
[2022-10-19 13:56] LABS: Appearance,Urine SL CLOUDY (Clear); Bilirubin,Urine Negative (Negative); Blood, Urine 2+ (Negative); Color,Urine YELLOW (Yellow); Glucose,Urine (UA) Negative (Negative); Ketones,Urine 1+ (Negative); Leukocyte Esterase,Urine 3+ (Negative); Nitrate,Urine Negative (Negative); PH,Urine 5.5 (5.0-8.5); Protein,Urine TRACE (Negative); Urobilinogen,Urine 0.2 EU/dl (0.2)
--- NOTE | 2022-10-19 13:57 | PC.NURSE ---
case management called for admission
[2022-10-19 14:07] LABS: Bacteria,Urine 3+ /lpf; Squamous Epithelial Cell,Urine Occasional #/hpf (0-5); WBC,Urine TNTC #/hpf (0-3)
--- NOTE | 2022-10-19 14:29 | PC.NURSE ---
REPORT GIVEN TO Carli BYERS RN
--- NOTE | 2022-10-19 14:51 | PC.NURSE ---
PER GILBERTO IN LAB, COVID SWAB HAS APPROX 2-3 MINS LEFT UNTIL RESULTS
[2022-10-19 14:52] LABS: Coronavirus 19, PCR Not Detected (NotDetected); Influenza A, PCR Not Detected (NotDetected); Influenza B, PCR Not Detected (NotDetected)
--- NOTE | 2022-10-19 15:10 | PC.NURSE ---
arrived to floor by wheelchair from ED
--- NOTE | 2022-10-19 18:36 | PC.NURSE ---
pt unable to verify home medications, daughter to bring home medications
--- NOTE | 2022-10-19 21:04 | EXP.HP ---
History of Present Illness *Admission Date: 10/19/22 *Reason for visit:: Confusion, UTI *History of present illness: Pleasant 82-year-old female with a recent diagnosis of UTI by her PCP last Wednesday. Has been having intermittent hallucinations and mild confusion since Wednesday. Presents with her daughter. States that she has not been acting herself. Admits to taking her 's antidepressant which she thought was Lexapro (daughter shows a picture of a bottle of alprazolam). Was initiated on Levaquin for UTI. Cultures obtained at [facility] on Wednesday which grew positive for ESBL E. coli. Patient denies dysuria, fever, nausea, vomiting. States she has noted she is not herself however. Has been having visual hallucinations daily seeing bugs including ants yesterday which she took a picture of that were not in the picture. Presented to the ER at the recommendation of her PCP when she had repeat labs today showing worsening ASHLEY. Admitted to medicine for further management. On arrival to the floor, patient is pleasant and appears alert and oriented. Denies any chest pain or shortness of breath. Tolerating dinner. Daughter at bedside who helps give history and review of systems. Patient recognizes she has not been herself lately. She has been under a lot of stress as well caring for her who is legally blind [facility] Disclaimer: The information contained in this section may have been updated after the patient was seen, as this information can be updated by other users. Family History Diabetes Coronary artery disease Heart attack Cancer Stroke Social History Smoking Status: Former smoker alcohol intake: current substance use type: denies use current occupational status: employed Travel in the last 8 weeks: None household members: spouse housing: house marital status: number of children: 2 caffeine: No Review of Systems Review of Systems Review of systems (narrative): 14 point review of systems performed, pertinent positives and negatives as per HPI Meds Home Medications and Allergies Home Medications Medication Instructions Recorded Confirmed Type amlodipine 10 mg tablet 10 mg PO DAILY blood pressure 10/18/18 10/12/22 History aspirin 81 mg tablet,delayed 81 mg PO DAILY thinner 10/18/18 10/12/22 History release (Aspir-) carvedilol 12.5 mg tablet 12.5 mg PO BID blood pressure 10/18/18 10/12/22 History escitalopram oxalate 10 mg tablet 10 mg PO DAILY Anxiety 10/18/18 10/12/22 History metformin 500 mg tablet,extended 500 mg PO DAILY Diabetes 10/18/18 10/12/22 History release 24 hr (Glucophage XR) biotin 2,500 mcg capsule 2,500 mcg PO DAILY daily 06/04/21 10/12/22 History fish oil-dha-epa 1,200 mg-144 1 each PO DAILY Supplement 06/04/21 10/12/22 History mg-216 mg capsule ondansetron 4 mg disintegrating 4 mg PO TIDP PRN Nausea 3 days #9 06/04/21 10/12/22 Rx tablet tabs atorvastatin 20 mg tablet 80 mg PO DAILY Cholesterol 08/20/22 10/12/22 History isosorbide mononitrate 30 mg 30 mg PO DAILY 08/20/22 10/12/22 History tablet,extended release 24 hr levothyroxine 100 mcg tablet 125 mcg PO DAILY thyroid 08/20/22 10/12/22 History levofloxacin 500 mg tablet 500 mg PO DAILY Infection 10/19/22 10/19/22 History New Prescriptions to Start Prescriptions: Allergies Allergy/AdvReac Type Severity Reaction Status Date / Time No Known Drug Allergies Allergy Unknown Verified 08/20/22 10:23 [NKDA] Exam Data for Last 24 hours Vital signs and Labs for Last 24 Hours: Temp Pulse Resp BP Pulse Ox 98.1 F 71 17 171/68 H 96 10/19/22 20:00 10/19/22 20:00 10/19/22 20:00 10/19/22 20:00 10/19/22 20:00 Laboratory Results - last 24 hr 10/19/22 12:00: WBC 8.3, RBC 4.36, Hgb 12.5, Hct 38.5, MCV 88.5, MCH 28.8, MCHC 32.5, RDW 14.4, Plt Count 149, MPV
--- NOTE | 2022-10-19 21:38 | PC.NURSE ---
Resp called to place pt. on a CPAP.
[2022-10-20 04:00] VITALS: BP 167/71; PULSE 64; RESP 16; TEMP 36.7; O2SAT 96; BMI 22.7
--- NOTE | 2022-10-20 04:50 | PC.NURSE ---
Pt. had no changes throughout the night.
[2022-10-20 07:29] LABS: Basophils % 0.4 % (0.1-2.0); Eosinophils # 0.1 K/mm3 (0.0-0.4); Eosinophils % 0.9 % (0.1-12.0); Lymphocytes # 1.2 K/mm3 (0.7-4.5); Lymphocytes % 23.7 % (10-50); Mean Corpuscular HGB Conc 33.8 g/dL (31.8-35.4); Mean Corpuscular Hemoglobin 29.3 pg (27.0-31.2); Mean Corpuscular Volume 86.8 fl (81-99); Mean Platelet Volume 11.6 fl (7.4-10.4); Monocytes # 0.4 K/mm3 (0.1-1.0); Monocytes % 6.8 % (1.7-9.3); Neutrophils # 3.6 K/mm3 (1.8-7.8); Neutrophils % 68.2 % (37.0-80.0); Platelet Count 120 K/mm3 (142-424); Red Blood Count 3.68 M/mm3 (4.20-5.40); Red Cell Distribution Width 14.6 % (11.5-17.5); White Blood Count 5.2 K/mm3 (4.8-10.8)
[2022-10-20 07:33] LABS: Alanine Aminotransferase 10 U/L (12-78); Albumin Level 3.3 g/dl (3.5-5.0); Albumin/Globulin Ratio 1.2 (1.1-1.8); Alkaline Phosphatase 72 U/L (38-126); Anion Gap 11.7 mEq/L (5-15); Aspartate Amino Transferase 28 U/L (14-36); Bilirubin,Total 0.4 mg/dl (0.2-1.3); Blood Urea Nitrogen 32 mg/dl (7-17); Carbon Dioxide 23 mmol/L (22.0-30.0); Chloride 108 mmol/L (98-107); Creatinine Clearance Estimated 28 mL/min (50-200); Estimated Glomerular Filt Rate 36 ml/min (>60); GFR (African American) 44 ML/MIN (>60); Globulin 2.8 g/dL (1.3-3.2); Glucose 78 mg/dl (74-100); Magnesium 1.2 mg/dl (1.6-2.3); Potassium 3.7 mmoL/L (3.5-5.1); Sodium 139 mmol/L (136-145); Total Protein,Serum 6.1 g/dl (6.3-8.2)
[2022-10-20 08:00] VITALS: BP 156/73; PULSE 63; RESP 20; TEMP 36.9; O2SAT 96
--- NOTE | 2022-10-20 11:25 | HMH.PTEV ---
Physical Therapy Evaluation Rehab PT IP Evaluation Start: 10/20/22 11:12 Freq: ONCE Status: Active Protocol: Document 10/20/22 11:22 LORIEVenturaPETER (Rec: 10/20/22 11:25 PHOTARI [id number]) Subjective/History History History 82 yowf adm to [facility] with UTI, ASHLEY. 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 She is generally independent with all mobility and does not use an AD at baseline. Subjective Subjective Pt reports feeling much better this am. Rehab PT IP Eval Objective Appearance Patient Behavior Appropriate Patient Orientation Person,Place,Time Difficulty following instructions none Speech Pattern Clear Ambulation Patient Able to Ambulate Yes Ambulation Observation IP General Gait Pattern Observation No Deviations/Normal Ambulation Distance (feet) 40 Ambulation Assistive Device Straight Cane Ambulation Ability Independent Balance Ability to Arise Able, uses arms to help Sitting Balance Steady, safe Standing Balance Steady, wide stance Dynamic Sitting Balance Ability Good Dynamic Standing Balance Ability Good Transfers Bed Transfer Ability Independent Chair Transfer Ability Independent Sit to Stand Bed Transfer Ability Independent Sit to Stand Chair Transfer Ability Independent ROM All Extremities PT ROM Status WFL MMT All Extremities PT MMT WFL Rehab PT IP prob,goals,plan Problems Date of Evaluation: 10/20/22 Discharge Plan PT Discharge Plan Pt is currently at baseline for all mobility and is appropriate to return home once medically stable for d/c. G -code Required No Eval Complexity Eval Charge Codes 40181 - Moderate Complexity PHYSICIAN CERTIFICATION: I certify the specified therapy services for Lakesha Roger are required, authorized, and reviewed every 30 days.
--- NOTE | 2022-10-20 13:04 | HMH.PHAINT1 ---
Pharmacy Intervention Comments: Home medication reconciliation completed on patient via fill history from outside pharmacy. -Glo Carrera, PharmD Candidate 2022
--- NOTE | 2022-10-20 13:46 | HMH.PHAINT1 ---
Pharmacy Intervention Comments: Discharge medication counseling was completed with patient prior to discharge. Overviewed new and continued medications including indications, possible adverse effects, and mitigation strategies for each. Instructed patient to stop taking discontinued antibiotic. Patient asked about when to start her new antibiotic and was answered appropriately. Patient verbalized understanding of information provided and had no further questions or concerns at this time. -Glo Carrera, PharmD Candidate 2022
--- NOTE | 2022-10-22 14:04 | CARE MANAGER ---
Attempted to contact patient related to hospital discharge x 2. Left VM. FILIBERTO Mckeon
--- NOTE | 2022-12-02 10:31 | EXP.DC.SUM ---
General Admission date:: 10/19/22 Discharge date: 10/20/22 HPI HPI HPI: Pleasant 82-year-old female with a recent diagnosis of UTI by her PCP last Wednesday. Has been having intermittent hallucinations and mild confusion since Wednesday. Presents with her daughter. States that she has not been acting herself. Admits to taking her 's antidepressant which she thought was Lexapro (daughter shows a picture of a bottle of alprazolam). Was initiated on Levaquin for UTI. Cultures obtained at [facility] on Wednesday which grew positive for ESBL E. coli. Patient denies dysuria, fever, nausea, vomiting. States she has noted she is not herself however. Has been having visual hallucinations daily seeing bugs including ants yesterday which she took a picture of that were not in the picture. Presented to the ER at the recommendation of her PCP when she had repeat labs today showing worsening ASHLEY. Admitted to medicine for further management. On arrival to the floor, patient is pleasant and appears alert and oriented. Denies any chest pain or shortness of breath. Tolerating dinner. Daughter at bedside who helps give history and review of systems. Patient recognizes she has not been herself lately. She has been under a lot of stress as well caring for her who is legally blind Hospital Course Hospital Course Hospital Course: The patient was admitted for UTI with acute kidney injury and medication induced encephalopathy. With fluid resuscitation her renal function improved to baseline and her encephalopathy resolved. Blood and urine cultures identified no growth and her IV antibiotic was transitioned to oral based on previous urine culture report. She identified improvement and inquired about discharge home. I spent 35 minutes in [id number] time with the patient and nursing staff concerning the discharge process. We discussed the admitting diagnoses and hospital course. We discussed identified improvement and the patient's desire to be discharged. We reviewed inpatient studies and imaging. The patient voiced understanding on the importance of follow-up with her primary care provider and specialist(s). The patient plans to be compliant with the medication regimen prescribed and follow-up appointments. She understands that she can return to the emergency department with any sudden changes or concerns. Exam Data for Last 24 hours Vital signs and Labs for Last 24 Hours: Temp Pulse Resp BP Pulse Ox 98.5 F 63 20 156/73 H 96 10/20/22 08:00 10/20/22 08:00 10/20/22 08:00 10/20/22 08:00 10/20/22 08:00 Constitutional Constitutional: no acute distress *Routine HEENT Exam Head: Present normocephalic Eye: Present EOMI and PERRL ENT: Present mucous membranes moist *Routine Neck Exam Neck: Present supple; Absent lymphadenopathy *Routine Respiratory Exam Respiratory: Present CTA bilaterally *Routine Cardiovascular Exam Cardiovascular: Present RRR *Routine Abdominal Exam Abdominal: Present soft and normoactive bowel sounds; Absent tenderness *Routine Extremities Exam Extremities: Absent cyanosis, clubbing or edema *Routine Skin Exam Skin: Present warm; Absent rash *Routine Neurological Exam Neurological: Present alert and oriented X3 DS: Diagnosis Discharge Diagnosis (1) Acute UTI (urinary tract infection): Status: Acute (2) ASHLEY (acute kidney injury): Status: Resolved (3) Hypothyroidism: Status: Chronic (4) Hyperlipidemia: Status: Chronic (5) Hypertension: Status: Chronic (6) Hallucinations: Status: Resolved Meds Home Medications and Allergies Home Medications Medication Instructions Recorded Confirmed Type amlodipine 10 mg tablet 10 mg PO DAILY blood pressure 10/18/18 10/19/22 History aspirin 81 mg tablet,delayed 81 mg PO DAILY thinner 10/18/18 10/19/22 History release (Aspir-) carvedilol 12.5 mg tablet 12.5 mg PO BID blood pressure 10/18/1810/04
== END 2022-10-20 13:27 | disposition home or self-care (01) ==
LOC: ER 12:33 → 2ND 14:08
PROVIDERS: Admitting Provider Internal Medicine Adolescent Medicine; Emergency Provider Emergency Medicine; PCP Nurse Practitioner Family; Visit Provider Family Medicine
DX: N39.0 Urinary tract infection, site not specified (principal); N17.9 Acute kidney failure, unspecified; E03.9 Hypothyroidism, unspecified; E78.5 Hyperlipidemia, unspecified; I10 Essential (primary) hypertension; R44.3 Hallucinations, unspecified; E11.9 Type 2 diabetes mellitus without complications; Z79.84 Long term (current) use of oral hypoglycemic drugs; I25.10 Atherosclerotic heart disease of native coronary artery without angina pectoris; Z20.822 Contact with and (suspected) exposure to COVID-19
CPT/HCPCS: G0378; 36415; 80053; 81001; 83735; 85007; 85025; 87040; 87086; 97162; 99285; C9803; J1335; J3475; U0003; U0005

== ENCOUNTER → 2022-12-09 14:15 | Outpatient (CLI) | payer MEDICARE, SELFPAY ==
[2022-12-09 14:52] LABS: Basophils % 0.6 % (0.1-2.0); Eosinophils # 0.1 K/mm3 (0.0-0.4); Hematocrit 34.9 % (37.0-47.0); Hemoglobin 11.5 g/dL (12.2-16.2); Lymphocytes # 1.3 K/mm3 (0.7-4.5); Mean Corpuscular HGB Conc 32.8 g/dL (31.8-35.4); Mean Corpuscular Hemoglobin 30.1 pg (27.0-31.2); Mean Corpuscular Volume 91.9 fl (81-99); Mean Platelet Volume 11.3 fl (7.4-10.4); Monocytes # 0.4 K/mm3 (0.1-1.0); Monocytes % 7.8 % (1.7-9.3); Neutrophils # 3.1 K/mm3 (1.8-7.8); Neutrophils % 63.6 % (37.0-80.0); Platelet Count 97 K/mm3 (142-424); Red Cell Distribution Width 14.9 % (11.5-17.5); White Blood Count 4.8 K/mm3 (4.8-10.8)
[2022-12-09 15:21] LABS: Chloride 104 mmol/L (98-107); Sodium 139 mmol/L (136-145)
[2022-12-09 15:24] LABS: Alanine Aminotransferase 16 U/L (12-78); Albumin Level 3.7 g/dl (3.5-5.0); Albumin/Globulin Ratio 1.4 (1.1-1.8); Alkaline Phosphatase 73 U/L (38-126); Aspartate Amino Transferase 24 U/L (14-36); Bilirubin,Total 0.5 mg/dl (0.2-1.3); Blood Urea Nitrogen 25 mg/dl (7-17); Carbon Dioxide 33 mmol/L (22.0-30.0); Estimated Glomerular Filt Rate 48 ml/min (>60); GFR (African American) 58 ML/MIN (>60); Globulin 2.6 g/dL (1.3-3.2); Total Protein,Serum 6.3 g/dl (6.3-8.2)
[2022-12-09 15:25] LABS: Calcium 8.8 mg/dl (8.4-10.2); Glucose 97 mg/dl (74-100)
== END ==
PROVIDERS: PCP Nurse Practitioner Family; Visit Provider Specialist
DX: G31.84 Mild cognitive impairment of uncertain or unknown etiology; E78.5 Hyperlipidemia, unspecified; I10 Essential (primary) hypertension
CPT/HCPCS: 36415; 80053; 85025

== ENCOUNTER → 2023-02-18 13:32 | Outpatient (CLI) | payer MEDICARE, SELFPAY ==
[2023-02-18 14:43] LABS: Basophils % 0.5 % (0.1-2.0); Eosinophils # 0.2 K/mm3 (0.0-0.4); Eosinophils % 2.8 % (0.1-12.0); Hematocrit 33.1 % (37.0-47.0); Hemoglobin 10.6 g/dL (12.2-16.2); Lymphocytes # 1.3 K/mm3 (0.7-4.5); Lymphocytes % 23.5 % (10-50); Mean Corpuscular Hemoglobin 29.9 pg (27.0-31.2); Mean Corpuscular Volume 93.4 fl (81-99); Mean Platelet Volume 11.9 fl (7.4-10.4); Monocytes # 0.4 K/mm3 (0.1-1.0); Monocytes % 6.6 % (1.7-9.3); Neutrophils # 3.7 K/mm3 (1.8-7.8); Neutrophils % 66.7 % (37.0-80.0); Platelet Count 95 K/mm3 (142-424); Red Blood Count 3.55 M/mm3 (4.20-5.40); Red Cell Distribution Width 14.9 % (11.5-17.5); White Blood Count 5.5 K/mm3 (4.8-10.8)
[2023-02-20 13:37] LABS: Peripheral Smear Review Scanned Result
== END ==
PROVIDERS: PCP Internal Medicine Adolescent Medicine; Visit Provider Internal Medicine Medical Oncology
DX: D69.6 Thrombocytopenia, unspecified (principal)
CPT/HCPCS: 36415; 85025

== ENCOUNTER → 2023-02-26 16:17 | Outpatient (CLI) | payer MEDICARE, SELFPAY ==
[2023-02-26 17:07] LABS: Iron 59 ug/dL (37-170)
[2023-02-26 17:16] LABS: Total Iron Binding Capacity 296 ug/dL (265-497)
[2023-02-26 17:43] LABS: Ferritin 21.4 ng/ml (11.1-264)
[2023-02-26 17:59] LABS: Vitamin B12 612 pg/mL (239-931)
[2023-02-26 18:15] LABS: Folate > 20.00 ng/mL
[2023-03-02 16:13] LABS: Immunoglobulin A, Qn 431 mg/dL (64-422); Immunoglobulin G, Qn 944 mg/dL (586-1602); Immunoglobulin M, Qn 42 mg/dL (26-217)
[2023-04-20 23:42] LABS: Free Kappa Lt Chains 57.3; Free Lambda Lt Chains 49.4
== END ==
PROVIDERS: PCP Internal Medicine Adolescent Medicine; Visit Provider Internal Medicine Medical Oncology
DX: D50.9 Iron deficiency anemia, unspecified (principal); D64.9 Anemia, unspecified
CPT/HCPCS: 36415; 82607; 82728; 82746; 82784; 83540; 83550; 83883; 86334

== ENCOUNTER → 2023-03-16 11:51 | Outpatient (CLI) | payer MEDICARE, SELFPAY ==
[2023-03-16 12:03] VITALS: BMI 23.2
--- NOTE | 2023-03-16 12:15 | PC.NURSE ---
pt presents today for labs to be drawn per md order. venipuncture performed using a butterfly needle to pt's rt ac and blood obtained for cbc, specimen sent to lab for analysis. site secured with 2x2 gauze and coban once needle was withdrawn. pt ok to be discharged home at this time, staff will be in contact with pt concerning results.
[2023-03-16 12:24] LABS: Basophils % 0.3 % (0.1-2.0); Eosinophils # 0.1 K/mm3 (0.0-0.4); Eosinophils % 2.2 % (0.1-12.0); Hematocrit 34.2 % (37.0-47.0); Hemoglobin 10.7 g/dL (12.2-16.2); Lymphocytes # 1.1 K/mm3 (0.7-4.5); Lymphocytes % 18.9 % (10-50); Mean Corpuscular HGB Conc 31.3 g/dL (31.8-35.4); Mean Corpuscular Hemoglobin 29.2 pg (27.0-31.2); Mean Corpuscular Volume 93.3 fl (81-99); Mean Platelet Volume 12.1 fl (7.4-10.4); Monocytes # 0.3 K/mm3 (0.1-1.0); Monocytes % 5.6 % (1.7-9.3); Neutrophils # 4.3 K/mm3 (1.8-7.8); Neutrophils % 73.1 % (37.0-80.0); Platelet Count 95 K/mm3 (142-424); Red Blood Count 3.67 M/mm3 (4.20-5.40); White Blood Count 5.9 K/mm3 (4.8-10.8)
== END ==
PROVIDERS: PCP Nurse Practitioner Family; Visit Provider Internal Medicine Medical Oncology
DX: D69.6 Thrombocytopenia, unspecified (principal)
CPT/HCPCS: 36415; 85025

== ENCOUNTER 2023-05-19 09:37 | Outpatient (CLI) | payer MEDICARE, SELFPAY ==
[2023-05-19 09:43] VITALS: BMI 23.6
[2023-05-19 10:05] LABS: Basophils % 0.4 % (0.1-2.0); Eosinophils # 0.2 K/mm3 (0.0-0.4); Eosinophils % 4.2 % (0.1-12.0); Hematocrit 37.5 % (37.0-47.0); Lymphocytes % 20.5 % (10-50); Mean Corpuscular HGB Conc 31.9 g/dL (31.8-35.4); Mean Corpuscular Hemoglobin 29.8 pg (27.0-31.2); Mean Corpuscular Volume 93.3 fl (81-99); Mean Platelet Volume 10.8 fl (7.4-10.4); Monocytes # 0.3 K/mm3 (0.1-1.0); Monocytes % 5.2 % (1.7-9.3); Neutrophils # 3.4 K/mm3 (1.8-7.8); Neutrophils % 69.7 % (37.0-80.0); Platelet Count 97 K/mm3 (142-424); Red Blood Count 4.03 M/mm3 (4.20-5.40); Red Cell Distribution Width 14.2 % (11.5-17.5); White Blood Count 4.9 K/mm3 (4.8-10.8)
--- NOTE | 2023-05-19 10:07 | PC.NURSE ---
0950 - BLOOD DRAWN FROM LEFT AC USING BUTTERFLY NEEDLE TO CHECK CBC AT THIS TIME.
== END 2023-05-19 10:00 | disposition home or self-care (01) ==
LOC: INF 09:38
PROVIDERS: PCP Internal Medicine Adolescent Medicine; Visit Provider Internal Medicine Medical Oncology
DX: D46.9 Myelodysplastic syndrome, unspecified (principal)
CPT/HCPCS: 36415; 85025

== ENCOUNTER 2023-06-17 10:02 | Outpatient (CLI) | payer MEDICARE, SELFPAY ==
[2023-06-17 10:10] VITALS: BMI 23.6
[2023-06-17 10:21] LABS: Basophils % 0.4 % (0.1-2.0); Eosinophils # 0.1 K/mm3 (0.0-0.4); Eosinophils % 2.9 % (0.1-12.0); Hemoglobin 11.4 g/dL (12.2-16.2); Lymphocytes # 0.9 K/mm3 (0.7-4.5); Lymphocytes % 18.8 % (10-50); Mean Corpuscular HGB Conc 31.6 g/dL (31.8-35.4); Mean Corpuscular Hemoglobin 29.8 pg (27.0-31.2); Mean Corpuscular Volume 94.4 fl (81-99); Mean Platelet Volume 11.8 fl (7.4-10.4); Monocytes # 0.3 K/mm3 (0.1-1.0); Monocytes % 5.3 % (1.7-9.3); Neutrophils # 3.6 K/mm3 (1.8-7.8); Neutrophils % 72.6 % (37.0-80.0); Platelet Count 98 K/mm3 (142-424); Red Blood Count 3.82 M/mm3 (4.20-5.40); Red Cell Distribution Width 15.3 % (11.5-17.5); White Blood Count 4.9 K/mm3 (4.8-10.8)
== END 2023-06-17 10:15 | disposition home or self-care (01) ==
LOC: INF 10:03
PROVIDERS: PCP Internal Medicine Adolescent Medicine; Visit Provider Internal Medicine Medical Oncology
DX: D69.6 Thrombocytopenia, unspecified (principal)
CPT/HCPCS: 36415; 85025

== ENCOUNTER 2023-09-09 10:39 | Outpatient (CLI) | payer MEDICARE, SELFPAY ==
[2023-09-09 10:43] VITALS: BMI 24.3
--- NOTE | 2023-09-09 10:47 | PC.NURSE ---
1047-collected labs via venipuncture stick with butterfly needle in left ac;pt to hematology appointment.
[2023-09-09 10:55] LABS: Basophils % 0.3 % (0.1-2.0); Eosinophils # 0.1 K/mm3 (0.0-0.4); Eosinophils % 2.8 % (0.1-12.0); Hematocrit 35.9 % (37.0-47.0); Lymphocytes # 0.9 K/mm3 (0.7-4.5); Lymphocytes % 21.4 % (10-50); Mean Corpuscular HGB Conc 33.4 g/dL (31.8-35.4); Mean Corpuscular Hemoglobin 32.1 pg (27.0-31.2); Mean Corpuscular Volume 96.1 fl (81-99); Mean Platelet Volume 11.4 fl (7.4-10.4); Monocytes # 0.3 K/mm3 (0.1-1.0); Monocytes % 5.9 % (1.7-9.3); Neutrophils % 69.6 % (37.0-80.0); Platelet Count 98 K/mm3 (142-424); Red Blood Count 3.74 M/mm3 (4.20-5.40); Red Cell Distribution Width 13.4 % (11.5-17.5); White Blood Count 4.3 K/mm3 (4.8-10.8)
== END 2023-09-09 10:48 | disposition home or self-care (01) ==
LOC: INF 10:40
PROVIDERS: PCP Internal Medicine Adolescent Medicine; Visit Provider Internal Medicine Medical Oncology
DX: D64.9 Anemia, unspecified (principal)
CPT/HCPCS: 36415; 85025

== ENCOUNTER 2023-10-14 08:23 | Outpatient (CLI) | payer MEDICARE, SELFPAY ==
--- NOTE | 2023-10-14 08:33 | US_ITS ---
FINAL REPORT CLINICAL HISTORY: SPLENOMEGALY COMPARISON: None FINDINGS: Sonographic images of the abdomen were obtained. The liver has an unremarkable appearance with normal echogenicity. The gallbladder bladder is somewhat contracted, likely secondary to a recent meal just prior to the examination. No definite gallstones are seen. There is no evidence of biliary ductal dilatation. The common hepatic duct measures 4.6 mm, which is within normal limits. Limited images of the pancreas are unremarkable. The spleen size is normal. The right kidney measures 9 in length. The left kidney measures 11 in length. There is somewhat heterogeneous echotexture to the kidneys by laterally, that may be secondary to medical renal disease. There is no evidence of hydronephrosis. Small cysts are present in the kidneys bilaterally. The aorta has an unremarkable appearance. Limited images of the inferior vena cava are unremarkable. IMPRESSION: There is heterogeneous signal in the kidneys bilaterally, that may be secondary to medical renal disease. Small bilateral renal cysts are present as well. The gallbladder is somewhat contracted, likely secondary to a recent meal. No definite gallstones are seen. The spleen is normal in size. Reviewed, Interpreted and Dictated by Shashank Farr III, MD Transcribed by Esperanza Mark Authenticated and [facility]
== END 2023-10-14 23:59 ==
LOC: RAD 08:24
PROVIDERS: PCP Internal Medicine Adolescent Medicine; Visit Provider Internal Medicine Medical Oncology
DX: R16.1 Splenomegaly, not elsewhere classified (principal)
CPT/HCPCS: 76700

== ENCOUNTER 2023-12-14 10:02 | Outpatient (CLI) | payer MEDICARE, SELFPAY ==
[2023-12-14 10:07] VITALS: BMI 23.8
--- NOTE | 2023-12-14 10:12 | PC.NURSE ---
1012-collected labs via venipuncture stick in right ac with butterfly needle;pt to hematology appointment.
[2023-12-14 10:26] LABS: Basophils % 0.7 % (0.1-2.0); Eosinophils # 0.1 K/mm3 (0.0-0.4); Eosinophils % 2.3 % (0.1-12.0); Hematocrit 34.5 % (37.0-47.0); Hemoglobin 11.1 g/dL (12.2-16.2); Lymphocytes # 1.2 K/mm3 (0.7-4.5); Lymphocytes % 22.8 % (10-50); Mean Corpuscular HGB Conc 32.1 g/dL (31.8-35.4); Mean Corpuscular Hemoglobin 31.5 pg (27.0-31.2); Mean Platelet Volume 11.9 fl (7.4-10.4); Monocytes # 0.3 K/mm3 (0.1-1.0); Monocytes % 5.5 % (1.7-9.3); Neutrophils # 3.5 K/mm3 (1.8-7.8); Neutrophils % 68.7 % (37.0-80.0); Platelet Count 93 K/mm3 (142-424); Red Blood Count 3.52 M/mm3 (4.20-5.40); Red Cell Distribution Width 14.3 % (11.5-17.5); White Blood Count 5.1 K/mm3 (4.8-10.8)
== END 2023-12-14 10:15 | disposition home or self-care (01) ==
LOC: INF 10:03
PROVIDERS: PCP Internal Medicine Adolescent Medicine; Visit Provider Internal Medicine Medical Oncology
DX: D61.818 Other pancytopenia (principal)
CPT/HCPCS: 36415; 85025

== ENCOUNTER 2024-03-15 11:55 | Outpatient (CLI) | payer MEDICARE, SELFPAY ==
[2024-03-15 12:03] VITALS: BMI 21.0
--- NOTE | 2024-03-15 12:10 | PC.NURSE ---
1210-collected labs via venipuncture stick in left ac with butterfly needle;md will call with results
[2024-03-15 12:21] LABS: Basophils % 0.7 % (0.1-2.0); Eosinophils # 0.1 K/mm3 (0.0-0.4); Eosinophils % 2.1 % (0.1-12.0); Hematocrit 35.7 % (37.0-47.0); Hemoglobin 11.1 g/dL (12.2-16.2); Lymphocytes # 1.1 K/mm3 (0.7-4.5); Lymphocytes % 25.6 % (10-50); Mean Corpuscular HGB Conc 31.1 g/dL (31.8-35.4); Mean Corpuscular Hemoglobin 29.7 pg (27.0-31.2); Mean Corpuscular Volume 95.6 fl (81-99); Mean Platelet Volume 12.8 fl (7.4-10.4); Monocytes # 0.2 K/mm3 (0.1-1.0); Monocytes % 4.3 % (1.7-9.3); Neutrophils # 2.9 K/mm3 (1.8-7.8); Neutrophils % 67.2 % (37.0-80.0); Platelet Count 105 K/mm3 (142-424); Red Blood Count 3.74 M/mm3 (4.20-5.40); Red Cell Distribution Width 15.1 % (11.5-17.5); White Blood Count 4.3 K/mm3 (4.8-10.8)
[2024-03-15 12:26] LABS: Chloride 106 mmol/L (98-107); Potassium 4.1 mmoL/L (3.5-5.1); Sodium 140 mmol/L (136-145)
[2024-03-15 12:28] LABS: Alanine Aminotransferase 18 U/L (12-78); Aspartate Amino Transferase 30 U/L (14-36); Blood Urea Nitrogen 25 mg/dl (7-17); Creatinine Clearance Estimated 26 mL/min (50-200); Estimated Glomerular Filt Rate 36 ml/min (>60); GFR (African American) 44 ML/MIN (>60)
[2024-03-15 12:29] LABS: Albumin Level 3.8 g/dl (3.5-5.0); Albumin/Globulin Ratio 1.3 (1.1-1.8); Alkaline Phosphatase 72 U/L (38-126); Anion Gap 9.1 mEq/L (5-15); Bilirubin,Total 0.3 mg/dl (0.2-1.3); Carbon Dioxide 29 mmol/L (22.0-30.0); Total Protein,Serum 6.8 g/dl (6.3-8.2)
[2024-03-15 12:30] LABS: Calcium 9.2 mg/dl (8.4-10.2); Glucose 114 mg/dl (74-100)
[2024-03-17 12:18] LABS: Peripheral Smear Review Scanned Result
== END 2024-03-15 12:15 | disposition home or self-care (01) ==
LOC: INF 11:56
PROVIDERS: PCP Internal Medicine Adolescent Medicine; Visit Provider Internal Medicine Medical Oncology
DX: D64.9 Anemia, unspecified (principal); D69.6 Thrombocytopenia, unspecified
CPT/HCPCS: 36415; 80053; 85025

== ENCOUNTER 2024-09-13 11:44 | Outpatient (CLI) | payer MEDICARE, SELFPAY ==
--- NOTE | 2024-09-13 11:45 | PC.NURSE ---
1145-collected labs via venipuncture stick in left ac with butterfly needle; pt d/c home
[2024-09-13 11:59] LABS: Basophils # 0.1 K/mm3 (0-0.2); Basophils % 1.1 % (0.1-2.0); Eosinophils # 0.1 K/mm3 (0.0-0.4); Eosinophils % 2.9 % (0.1-12.0); Hematocrit 33.7 % (37.0-47.0); Hemoglobin 10.7 g/dL (12.2-16.2); Lymphocytes # 1.1 K/mm3 (0.7-4.5); Lymphocytes % 26.6 % (10-50); Mean Corpuscular HGB Conc 31.8 g/dL (31.8-35.4); Mean Corpuscular Hemoglobin 30.5 pg (27.0-31.2); Mean Corpuscular Volume 95.6 fl (81-99); Mean Platelet Volume 12.5 fl (7.4-10.4); Monocytes # 0.2 K/mm3 (0.1-1.0); Monocytes % 5.2 % (1.7-9.3); Neutrophils # 2.6 K/mm3 (1.8-7.8); Neutrophils % 64.2 % (37.0-80.0); Platelet Count 98 K/mm3 (142-424); Red Blood Count 3.52 M/mm3 (4.20-5.40); Red Cell Distribution Width 14.6 % (11.5-17.5); White Blood Count 4.1 K/mm3 (4.8-10.8)
== END 2024-09-13 11:45 | disposition home or self-care (01) ==
LOC: INF 11:45
PROVIDERS: PCP Internal Medicine Adolescent Medicine; Visit Provider Internal Medicine Medical Oncology
DX: D61.818 Other pancytopenia (principal)
CPT/HCPCS: 36415; 85025

== ENCOUNTER 2024-11-21 11:18 | Outpatient (CLI) | payer MEDICARE, SELFPAY ==
[2024-11-21 11:23] VITALS: BMI 17.9
[2024-11-21 11:43] LABS: Chloride 107 mmol/L (98-107); Potassium 4.2 mmoL/L (3.5-5.1); Sodium 140 mmol/L (136-145)
[2024-11-21 11:46] LABS: Blood Urea Nitrogen 24 mg/dl (7-17); Creatinine Clearance Estimated 25 mL/min (50-200); Estimated Glomerular Filt Rate 43 ml/min (>60); GFR (African American) 52 ML/MIN (>60)
[2024-11-21 11:47] LABS: Anion Gap 8.2 mEq/L (5-15); Calcium 9.4 mg/dl (8.4-10.2); Carbon Dioxide 29 mmol/L (22.0-30.0); Glucose 119 mg/dl (74-100)
[2024-11-21] MEDS: GENTAMICIN SULFATE IV (11:56)
[2024-11-21] MEDS: SODIUM CHLORIDE 0.9% IV (11:56)
[2024-11-21 12:00] VITALS: BP 162/52; PULSE 63; RESP 18; TEMP 37; O2SAT 100
[2024-11-21] MEDS: 0.9 % SODIUM CHLORIDE 50 ML 100 ML IV (12:00)
[2024-11-21 12:30] VITALS: BP 165/63; PULSE 61; RESP 18; O2SAT 100
[2024-11-21 13:34] VITALS: BP 162/45; PULSE 66; RESP 18; O2SAT 100
== END 2024-11-21 13:34 | disposition home or self-care (01) ==
LOC: INF 11:19
PROVIDERS: PCP Nurse Practitioner Family; Visit Provider Internal Medicine Medical Oncology
DX: D61.818 Other pancytopenia (principal)
CPT/HCPCS: 80048; 96365; J1580

== ENCOUNTER 2024-11-24 11:17 | Outpatient (CLI) | payer MEDICARE, SELFPAY ==
[2024-11-24 11:23] VITALS: BMI 17.9
[2024-11-24 12:38] LABS: Gentamicin,Trough < 0.6 ug/ml (0.0-2.0)
[2024-11-24 13:05] VITALS: BP 153/70; PULSE 63; RESP 18; TEMP 36.8; O2SAT 96
[2024-11-24] MEDS: 0.9 % SODIUM CHLORIDE 50 ML IV (13:05)
[2024-11-24] MEDS: GENTAMICIN SULFATE IV (13:06)
[2024-11-24] MEDS: SODIUM CHLORIDE 0.9% IV (13:06)
[2024-11-24 13:35] VITALS: BP 142/68; PULSE 68
[2024-11-24 14:05] VITALS: BP 152/71; PULSE 71
[2024-11-24 15:46] LABS: Gentamicin,Peak 14.3 ug/ml (4.0-8.0)
== END 2024-11-24 23:59 | disposition home or self-care (01) ==
LOC: INF 11:18
PROVIDERS: PCP Internal Medicine Adolescent Medicine; Visit Provider Nurse Practitioner Family
DX: D61.818 Other pancytopenia (principal)
CPT/HCPCS: 80170; 96365; J1580

== ENCOUNTER 2024-11-27 11:42 | Outpatient (CLI) | payer MEDICARE, SELFPAY ==
[2024-11-27 12:00] VITALS: BP 107/84; PULSE 64; RESP 18; TEMP 36.7; O2SAT 96
[2024-11-27] MEDS: 0.9 % SODIUM CHLORIDE 50 ML 100 ML IV (12:00)
[2024-11-27] MEDS: SODIUM CHLORIDE 0.9% IV (12:00)
[2024-11-27] MEDS: GENTAMICIN SULFATE IV (12:00)
[2024-11-27 13:20] VITALS: BP 120/73; PULSE 66; RESP 18; O2SAT 96
== END 2024-11-27 13:20 | disposition home or self-care (01) ==
LOC: INF 11:43
PROVIDERS: PCP Internal Medicine Adolescent Medicine; Visit Provider Internal Medicine Medical Oncology
DX: K51.90 Ulcerative colitis, unspecified, without complications (principal)
CPT/HCPCS: 96365; J1580

== ENCOUNTER 2024-11-30 11:22 | Outpatient (CLI) | payer MEDICARE, SELFPAY ==
[2024-11-30 11:50] VITALS: BP 145/67; PULSE 62; RESP 16; O2SAT 100
[2024-11-30] MEDS: 0.9 % SODIUM CHLORIDE 50 ML 100 ML IV (11:50)
[2024-11-30] MEDS: GENTAMICIN SULFATE IV (11:50)
[2024-11-30] MEDS: SODIUM CHLORIDE 0.9% IV (11:50)
[2024-11-30 12:50] VITALS: BP 169/66; PULSE 70; RESP 16
== END 2024-11-30 13:00 | disposition home or self-care (01) ==
LOC: INF 11:23
PROVIDERS: PCP Internal Medicine Adolescent Medicine; Visit Provider Internal Medicine Medical Oncology
DX: N39.0 Urinary tract infection, site not specified (principal)
CPT/HCPCS: 96365; J1580

== ENCOUNTER 2025-01-04 07:31 | Day surgery (SDC) | payer MEDICARE, SELFPAY ==
[2025-01-01 16:52] VITALS: BMI 18.8
[2025-01-04 07:48] VITALS: BP 170/63; PULSE 62; RESP 17; TEMP 36.3; O2SAT 98
[2025-01-04] MEDS: LACTATED RINGERS 1000ML 1,000 ML 50 ML IV (08:00)
--- NOTE | 2025-01-04 08:24 | P.PNANES_ITS ---
[facility] Disclaimer: The information contained in this section may have been updated after the patient was seen, as this information can be updated by other users. Medical History T2DM (type 2 diabetes mellitus) Coronary artery disease Hyperlipidemia Hypertension Surgical History H/O heart artery stent H/O: hysterectomy No history of previous surgery Family History Other Cancer Coronary artery disease Diabetes Heart attack Stroke Social History Smoking Status: Former smoker alcohol intake: never substance use type: denies use current occupational status: employed Travel in the last 8 weeks: None household members: spouse housing: house marital status: number of children: 2 caffeine: No Have you lived/traveled outside US in past 30 days?: No Contact w/someone who lives/traveled outside US past 30 days?: No Exposure to someone with infectious disease in past 14 days?: No Do you have a fever (greater than 100.4 F or 38 C)?: No Have you tested positive for COVID-19: No Exposed to someone with COVID-19 in past 14 days?: No Do you have a sore throat?: No Do you have a cough?: No Do you have any weakness?: No Do you have any diarrhea?: No Are you experiencing any unusual bleeding?: No Do you have any muscle aches/pain?: No Do you have any abdominal pain?: No Are you experiencing loss of taste or smell?: No [facility] Anesthesia Checklist Patient Identification Patient Identification: Verbal (Name & ) Structural Data Admitted From: Home Planned Operative Procedure/s: egd Consent for Planned Operative Procedure(s) Verified: Yes NPO Status Verified Time NPO: 00:00 Additional verifications Anesthesia Reactions: No Airway Assessment Mallampati Score:: Class II C-Spine Mobility Assessed: Yes TMJ Mobility Assessed: Yes Dentition: Partials Neurological Assessment Level of Consciousness: Awake, Alert and Appropriate Anesthesia Plan Anesthesia Risk discussed: Yes Anesthesia Plan: Verified ASA Class: II Anesthesia Type: MAC
--- NOTE | 2025-01-04 08:51 | P.HP_ITS ---
History of Present Illness *Admission Date: 01/04/25 *History of present illness: Mrs. Roger is an 84-year-old female who is here for diagnostic colonoscopy. The patient has had a weight loss of 30 pounds in the last year. The patient has had longstanding severe IBS with diarrhea. She has had extensive diagnostic evaluation including stool studies, colonoscopy, imaging. Her biopsies of the right colon did not show any evidence of microscopic or lymphocytic colitis. In the past, she did have improvement with Xifaxan but it was very short lived. The patient has tried [id number]-gvegoti antidiarrheals, hyoscyamine, fiber bulk, Imodium, Pepto-Bismol, etc. She was placed on Viberzi and has had marked improvement with this. It is very cost prohibitive and twice daily dosing is more than $500 monthly. She is using this once daily which helps some with cost and still helps to control this. She still has some urgency and more rare fecal incontinence. She was having several bouts of fecal incontinence weekly. Her last colonoscopy with md was October 2018 and she had no polyps. The biopsies at that time were normal showing no microscopic (collagenous or lymphocytic) colitis. She did have extensive diverticulosis. The patient is not on any bulking agent presently (not taking FiberCon). She does have CSID and is not on Starchway or Sucraid. [facility] Disclaimer: The information contained in this section may have been updated after the patient was seen, as this information can be updated by other users. Medical History (Updated 01/04/25 @ 08:53 by Los Licona II, MD) T2DM (type 2 diabetes mellitus) Coronary artery disease Hyperlipidemia Hypertension Surgical History H/O heart artery stent H/O: hysterectomy No history of previous surgery Family History Other Cancer Coronary artery disease Diabetes Heart attack Stroke Social History Smoking Status: Former smoker alcohol intake: never substance use type: denies use current occupational status: employed Travel in the last 8 weeks: None household members: spouse housing: house marital status: number of children: 2 caffeine: No Have you lived/traveled outside US in past 30 days?: No Contact w/someone who lives/traveled outside US past 30 days?: No Exposure to someone with infectious disease in past 14 days?: No Do you have a fever (greater than 100.4 F or 38 C)?: No Have you tested positive for COVID-19: No Exposed to someone with COVID-19 in past 14 days?: No Do you have a sore throat?: No Do you have a cough?: No Do you have any weakness?: No Do you have any diarrhea?: No Are you experiencing any unusual bleeding?: No Do you have any muscle aches/pain?: No Do you have any abdominal pain?: No Are you experiencing loss of taste or smell?: No Other Medical History Have you received the Flu Vaccine for this season: No Have you received the Pneumonia Vaccine: Yes Review of Systems Review of Systems Review of systems (narrative): Negative *Cardiovascular Comments: Negative *Gastrointestinal Comments: Negative *Genitourinary Comments: Negative *Musculoskeletal Comments: Negative *Neurologic Comments: Negative Meds Home Medications and Allergies Home Medications ?Medication ?Instructions ?Recorded ?Confirmed ?Type aspirin 81 mg tablet,delayed 81 mg PO DAILY thinner 10/18/18 12/27/24 History release (Aspir-) carvedilol 12.5 mg tablet 12.5 mg PO BID blood pressure 10/18/18 01/04/25 History biotin 2,500 mcg capsule 2,500 mcg PO DAILY Supplement 06/04/21 01/04/25 History fish oil-dha-epa 1,200 mg-144 1 each PO DAILY Supplement 06/04/21 01/04/25 History mg-216 mg capsule isosorbide mononitrate 30 mg 30 mg PO DAILY High blood pressure 08/20/22 01/04/25 History tablet,extended release 24 hr atorvastatin 80 mg tablet 80 mg PO DAILY Cholesterol 10/20/22 01/04/25 History escitalopram oxalate 10 mg tablet 10 mg PO DAILY Anxiety 04/01/23 01/04/25 History empagliflozin 25 mg tablet 25 mg PO DAILY 12/14/23 01/04/25 History (Jardiance) memantine 5 mg tablet 5 mg PO BID 90 days #180 tabs 12/27/23 01/04/25 Rx levothyroxine 137 mcg tablet 137 mcg PO DAILY 08/22/24 01/04/25 History mirtazapine 7.5 mg tablet 7.5 mg PO DAILY 09/13/24 01/04/25 History cyproheptadine 4 mg tablet 4 mg PO HS #30 tabs 12/27/24 01/04/25 Rx diphenoxylate-atropine 2.5 1 tab PO DAILY 01/01/25 01/04/25 History mg-0.025 mg tablet New Prescriptions to Start Prescriptions: Allergies Allergy/AdvReac Type Severity Reaction Status Date / Time No Known Allergies Allergy Verified 01/04/25 07:45 Exam Data for Last 24 hours Vital signs and Labs for Last 24 Hours: Temp Pulse Resp BP Pulse Ox O2 Del Method 97.3 F L 62 17 170/63 H 98 Room Air 01/04/25 07:48 01/04/25 07:48 01/04/25 07:48 01/04/25 07:48 01/04/25 07:48 01/04/25 07:48 I & O for Last 24 hours: Intake & Output 01/01/25 01/02/25 01/03/25 01/04/25 23:59 23:59 23:59 23:59 Weight 100 lb *Routine HEENT Exam Head: Present normocephalic Eye: Present EOMI and PERRL ENT: Present mucous membranes moist *Routine Neck Exam Neck: Present supple *Routine Respiratory Exam Respiratory: Present CTA bilaterally *Routine Cardiovascular Exam Cardiovascular: Present RRR *Routine Abdominal Exam Abdominal: Present soft and normoactive bowel sounds; Absent tenderness *Routine Rectal Exam Rectal:: deferred *Routine Genitalia Exam Genitalia:: deferred *Routine Extremities Exam Extremities: Absent cyanosis, clubbing or edema *Routine Skin Exam Skin: Present warm; Absent rash *Routine Neurological Exam Neurological: Present alert and oriented X3 Assessment and Plan *Assessment and plan (1) Chronic diarrhea: Status: Chronic Category: Medical Code(s): K52.9 - Noninfective gastroenteritis and colitis, unspecified (2) Loss of appetite: Status: Acute Category: Medical Code(s): R63.0 - Anorexia (3) Fecal incontinence: Status: Acute Category: Medical Code(s): R15.9 - Full incontinence of feces (4) Fear of loss of control of bowel: Status: Acute Category: Medical Code(s): F40.248 - Other situational type phobia (5) Irritable bowel syndrome with diarrhea: Status: Acute Category: Medical Code(s): K58.0 - Irritable bowel syndrome with diarrhea (6) Abnormal weight loss: Status: Acute Category: Medical Code(s): R63.4 - Abnormal weight loss Plan A/P: 1. Diarrhea with weight loss, incontinence, loss of appetite is the preprocedural diagnosis. The patient will be anesthetized/sedated using MAC sedation. The patient has been seen and examined. Cardiac and lung assessment prior to the examination is stable. Proceed with planned diagnostic colonoscopy
--- NOTE | 2025-01-04 09:09 | P.PCN_ITS ---
[facility] Procedure Note Date: 01/04/25 Time: 09:17 Procedure Note:: Upper Endoscopy Procedure Report: Esophagogastroduodenoscopy with cold biopsies Endoscopost: Los Licona II, MD Referring Physician: CARMEN Mckeon Date of Procedure: January 04, 2025 Equipment: Olympus GIF 190 standard upper endoscope Sedation: MAC sedation Indications: Mrs. Roger is an 84-year-old female who is here for diagnostic upper endoscopy. The patient has had a weight loss of 30 pounds in the last 6 to 12 months. The patient has had a loss of appetite. The patient has had longstanding severe IBS with diarrhea. She has had extensive diagnostic evaluation including stool studies, colonoscopy, imaging. Her biopsies of the right colon did not show any evidence of microscopic or lymphocytic colitis. In the past, she did have improvement with Xifaxan but it was very short lived. The patient has tried cula-iwh-zdidpys antidiarrheals, hyoscyamine, fiber bulk, Imodium, Pepto-Bismol, etc. She was placed on Viberzi and has had marked improvement with this. It is very cost prohibitive and twice daily dosing is more than $500 monthly. She is using this once daily which helps some with cost and still helps to control this. She still has some urgency and more rare fecal incontinence. She was having several bouts of fecal incontinence weekly. Her last colonoscopy with wv was October 2018 and she had no polyps. The biopsies at that time were normal showing no microscopic (collagenous or lymphocytic) colitis. She did have extensive diverticulosis. The patient is not on any bulking agent presently (not taking FiberCon). She does have CSID and is not on Starchway or Sucraid. Procedure: Prior to the procedure, a history and physical exam was performed, and patient's medications and allergies were reviewed. The risks, benefits and alternatives of the sedation and procedure were discussed with the patient. All questions were answered and informed consent was obtained. The patient was brought to the procedure room. Patient identification and proposed procedure were verified by the physician and the nurse. The patient was placed in a left lateral decubitus position and the scope was passed under direct vision. Throughout the procedure, the patient's blood pressure, pulse, and oxygen saturations were monitored continuously. The upper GI endoscopy was accomplished without difficulty. The patient tolerated the procedure well. Findings: The scope was passed directly into the upper esophagus and advanced to the third portion of the duodenum. There was a very large duodenal diverticulum in the second portion with diverticuli within the large diverticulum. There was mild duodenal lymphoid stasis. The scope was withdrawn through a normal duodenal bulb and pylorus into the stomach. There was minimal reactive gastropathy but no chronic gastritis. There was a large amount of liquid and retained solid food content within the body and fundus of the stomach. There was no hiatal hernia biopsies were taken from the antrum. The scope was then withdrawn into the esophagus. There was no evidence of reflux esophagitis or Roberts's. The remainder of the esophageal mucosa was normal. Impression: 1. Retained liquid and solid gastric food content?rule out gastric dysmotility 2. Large duodenal diverticulum (second portion) Plan: I will follow-up the biopsies. Because of her abnormal weight loss, I would consider CT imaging of the abdomen and pelvis as well. I would also consider adding an appetite stimulant. I would consider the appetite stimulant Megace. Weight loss especially among elderly persons is a fairly common problem. This can certainly result in increased illness and a loss of longevity. Involuntary weight loss is often difficult to treat. Certainly aging can dysregulate the mechanism of body energy requirements and metabolism as well as the mechanisms that control appetite. Megace can help mitigate the weight loss or onset of cachexia. Megace is one of the better appetite stimulants. It is a good choice for those that have lost a significant amount of weight. Patients will typically improve their appetite within the first few weeks after starting the drug. Weight gain, often in the form of fat, may take longer. A typical treatment duration would be up to 12 weeks.
[2025-01-04 09:19] VITALS: BP 130/67; PULSE 60; RESP 18; TEMP 36.8; O2SAT 99
[2025-01-04 09:29] VITALS: BP 146/72; PULSE 61; RESP 18; O2SAT 99
[2025-01-04 09:39] VITALS: BP 168/72; PULSE 58; RESP 18; O2SAT 100
[2025-01-04 09:49] VITALS: BP 178/81; PULSE 54; RESP 18; O2SAT 100
[2025-01-04 10:15] VITALS: BP 186/73; PULSE 60; RESP 18; TEMP 36.8; O2SAT 100
[2025-01-08 06:08] LABS: POC Glucose,Bedside 92 (70-110)
== END 2025-01-04 10:15 | disposition home or self-care (01) ==
PROVIDERS: PCP Nurse Practitioner Family; Visit Provider Internal Medicine Gastroenterology
PROC: 0DJ08ZZ Inspection of Upper Intestinal Tract, Via Natural or Artificial Opening Endoscopic (ICD-10-PCS; CPT 43239; principal; 2025-01-04 09:00)
DX: K57.10 Diverticulosis of small intestine without perforation or abscess without bleeding (principal); K31.89 Other diseases of stomach and duodenum; K31.9 Disease of stomach and duodenum, unspecified; K58.0 Irritable bowel syndrome with diarrhea; R63.0 Anorexia; R15.9 Full incontinence of feces; R63.4 Abnormal weight loss; E11.9 Type 2 diabetes mellitus without complications
CPT/HCPCS: 43239; 82962; 88305; J7120

== ENCOUNTER 2025-01-30 07:48 | Outpatient (CLI) | payer MEDICARE, SELFPAY ==
--- OUTSIDE RECORDS SUMMARY | 2025-01-30 07:50 | XMS_ITS | Data Portability ---
Author Organization [facility] Address [address] [place] [address] Care Team Providers Care Boiler Out Name Role Phone DANA OSULLIVAN Primary Care Provider Assessment No assessment recorded. Plan of Treatment Reminders Order Date Submit Date Provider Last Modified By Organization Details Last Modified Time Details Appointments NEW PATIENT UROLOGY 2024 01:00P M PRESTON BRANDT PA-C Not available Not available Not available FOLLOW UP DAK 2024 01:40P M MEME JEFF MD Not available Not available Not available Lab None recorded . Referral None recorded . Procedures None recorded . Surgeries None recorded . Imaging None recorded . Medication Orders None recorded . Patient TargetsNo targets recorded. Patient InstructionsNo instructions recorded. Reason for Referral None Reported. Procedures Surgical History Date Name Laterality Status Provider Name and Address Organization Details Recorded Time 05/09/20 24 Destruction Premalignant Lesion(s) completed [facility] 05/09/2024 14:50:09 05/09/20 24 Destruction BN Lesions completed [facility] 05/09/2024 14:50:57 Imaging Results None recorded. Procedure Notes None recorded. Medical Equipment None Reported. Allergies No known drug allergies Medications Name Sig Start Date Stop Date Status Note LastModified by Organization Details LastModified Time aspirin active Not Available Not Avail able Not Available levothyroxine active Not Available Not Available Not Available carvedilol active Not Available Not Av ailable Not Available amlodipine active Not Available Not Av ailable Not Available pravastatin active Not Available Not A vailable Not Available sotalol active Not Available Not Avail able Not Available metformin 05/09 completed Not Available Not Available Not Available escitalopram oxalate active Not Available Not Available Not Available Jardiance active Not Available Not Emmy ilable Not Available Vitals None Recorded Social History None recorded. Functional Status None recorded. Mental Status None recorded. Family History Nothing Reported. Medical History No medical history recorded. Gynecological HistoryNo gynecological history recorded. Obstetrics History GPAL:G 0 P 0 0 0 0 Past Encounters Encounter ID Performer Location Encounter Start Date Encounter Closed Date Diagnosis/Indication Diagnosis SNOMED-CT Code Diagnosis ICD10 Code Diagnosis Note [id number] MEME JEFF MD [address] [address] 05/09/2024 14:31:11 05/09/2024 16:18:08 Multiple benign melanocytic nevi 648774117 D22.5 - Benign lesions seen on exam today- SPF 30 or higher broad-spec trum sunscreen recommende d with re-applica tion every 2 hours- Discussed sun protection measures, including wide-brimm ed hat, sun-protec tive clothing, and avoidance of sun during peak hours of 10am-4pm- Instructed to monitor for changes and to call us for appointmen t with any changing or worrisome lesions Seborrheic keratosis [id number] L82.1 - Benign overgrowth s of skin - Hereditary Senile angioma 3985774 I 78.1 - Benign blood vessel growths - Hereditary Solar lentigo 16366551 L 81.4 - Benign brown spots - Sun-induce d Actinic keratosis 889561 [address]2 today, no wound careDiscus sed SE. R Eye may have swelling from LN2, that is OK and will resolveFup with change or concerns Inflamed s eborrheic keratosis 944869219 L82.[address], no wound careFup with change or concerns Health Concerns Section Related Observation LastModified by Organization Detai ls LastModified Time None Recorded Concern Status LastModified by Organization Details LastModified Time None Recorded Advance Directives Directive None Recorded Payers Encounter Date Sequence Insurance Name Policy Number Policy Mcnamara Covered Member ID Mcnamara Member ID Guarantor Name 05/09/2024 1 [place] [employer] [place] [employer] [employer] (MEDICARE REPLACEMENT HMO) [id number] Lakesha Roger [id number] Lakesha Roger Notes Date Note Type Note Provider Name and Address Organization Details Recorded Time 05/09/2024 text/html Annual SE, no personal hx of skin cancer I have some places on the face that are rough. MEME JEFF MD [address] [place] [address], [phone], [facility] 05/09/2024 15:08:04 OBGyn Episode No OBEpisode recorded.
[2025-01-30 08:29] LABS: Blood Urea Nitrogen 29 mg/dl (7-17); Estimated Glomerular Filt Rate 31 ml/min (>60); GFR (African American) 37 ML/MIN (>60)
--- NOTE | 2025-01-30 09:15 | CT_ITS ---
FINAL REPORT TECHNIQUE: After the administration of oral and intravenous contrast, axial images were obtained through the abdomen and pelvis by computed tomography. The study was performed with techniques to keep radiation dose as low as reasonably achievable, (ALARA). Individual dose reduction techniques using automated exposure control or adjustment of mA and/or kV according to the patient's size were employed. CLINICAL HISTORY: Weight loss, abdominal discomfort, lack of appetit FINDINGS: Abdomen: There are noncalcified nodules at the right lung base measuring up to 7 mm in greatest dimension best seen on image 6 of series 2. There is also a nodule at the left lung base measuring 4 mm on image 11 of series 2.. The liver parenchyma is homogeneous. Gallbladder is contracted. There are multiple bilateral renal cysts measuring up to 18 mm in diameter. An index exophytic focus is seen in the posterior left kidney measuring 1.2 cm on image 29 of series 2. There is a dominant stone in the lower pole of the right kidney measuring 2.5 cm. Dominant stone in the lower pole of the left kidney measures 1.5 cm the aorta is normal in caliber. There is no free fluid or adenopathy. Pelvis: The appendix is normal. There is mild sigmoid diverticulosis without evidence of diverticulitis. The urinary bladder is unremarkable. There is no free fluid or adenopathy. IMPRESSION: Large bilateral renal stones measuring up to 2.5 cm on the right. Bilateral renal cysts. Indeterminate, 1.2 cm nodule in the posterior left kidney. Recommend dedicated pre and postcontrast imaging for further evaluation. Bibasilar lung nodules measuring up to 7 mm. Recommend 6-month follow-up per Fleischner criteria. Reviewed, Interpreted and Dictated by Yaw Carpenter MD Transcribed by Monae Stinson Authenticated and [facility]
[2025-01-30] MEDS: BARIUM SULFATE(READI-CAT2);450ML BOTTLE 450 ML PO (09:32)
[2025-01-30] MEDS: SODIUM CHLORIDE 0.9% 10ML SYR (RAD ONLY) 10 ML IV (09:32)
[2025-01-30] MEDS: IOPAMIDOL-370 (76%);100ML BOTTLE 75 ML IV (09:32)
== END 2025-01-30 23:59 | disposition home or self-care (01) ==
LOC: RAD 07:49
PROVIDERS: PCP Nurse Practitioner Family; Visit Provider Internal Medicine Gastroenterology
DX: R63.4 Abnormal weight loss (principal); Z68.1 Body mass index [BMI] 19.9 or less, adult; R10.9 Unspecified abdominal pain; K52.9 Noninfective gastroenteritis and colitis, unspecified
CPT/HCPCS: 36415; 74177; 82565; 84520; Q9967

== ENCOUNTER → 2025-03-01 13:54 | Outpatient (CLI) | payer MEDICARE, SELFPAY | LOC: SL 13:55 | PROVIDERS: PCP Nurse Practitioner Family; Visit Provider Specialist | DX: G47.33 Obstructive sleep apnea (adult) (pediatric) (principal); G31.84 Mild cognitive impairment of uncertain or unknown etiology | CPT/HCPCS: 94762 ==

== ENCOUNTER 2025-03-28 11:53 | Outpatient (CLI) | payer MEDICARE, SELFPAY ==
--- OUTSIDE RECORDS SUMMARY | 2022-04-07 10:30 | XMS_ITS | Continuity of Care Document ---
Author Organization [facility] Address [address] [place] [address] Phone Care Team Providers Care Hand Hose Cutter Name Role Phone Grayson Ellis OD, Theodora Unavailable Unavailable Allergies, Adverse Reactions, Alerts Substance Reaction Status Criticality No Known Allergies Active No Inform ation Medications Medication Instructions Dosage Effective Dates (start - stop) Status Comments levothyroxine 137 mcg tablet - Active cefuroxime axetil 250 mg tablet TAKE 1 TABLET BY MOUTH EVERY 12 HOURS FOR 7 DAYS - Active cetirizine 10 mg tablet TAKE 1 TABLET BY MOUTH ONCE DAILY FOR 30 DAYS - Active buspirone 5 mg tablet - Acti ve hyoscyamine 0.125 mg sublingual tablet - Active amlodipine 10 mg tablet - Ac tive atorvastatin 80 mg tablet - Active lisinopril 5 mg tablet - Act jessica metformin 500 mg tablet - Ac tive Procedures Procedure Date REFRACTION OFFICE/OUTPATIENT VISIT, EST REFRACTION COMPREHENSIVE EYE EXAM, NEW PATIENT Advance Directives Directive Yes / No Effective Date File Name No Information Encounters Encounter Description Practice Location Reason(s) For Visit Diagnoses Date Provider Providers Copied on Encounter OFFICE/OUTPA TIENT VISIT, EST [facility], [address] [place], [place] [address], [place], [address], [place] tel:[phone] [facility] diabetic eye exam (chief complaint) Type 2 diabetes mellitus without complication, without long-term current use of insulinPresby opiaBilateral posterior capsular opacification PVD (posterior vitreous detachment), bilateral 2 Grayson Ellis OD Ada. [address] [place] [address], [address] [place] [address], . tel:[phone] Referring Provider: Theodora Ellis OD, [facility] [place], [place], [address] [place] [address]. tel:[phone] [facility], [address] [place] [address] 100, [place], [place], [facility], tel:[phone] [facility] diabetic eye exam (chief complaint) PresbyopiaTyp e 2 diabetes mellitus without complication, without long-term current use of insulinBilate ral posterior capsular opacification 1 Grayson Ellis OD Ada. 102 [place], [place], [address] [place] [address], . tel:[phone] Referring Provider: Theodora Ellis OD, [address] [place] [address], [address] [place] [address]. tel:[phone] [facility], [facility] [address] [place] [address] 100, [facility] [place], [facility], [place] tel:[phone] [facility] No Information 1 Grayson Ellis OD Ada. [address] [place] [address], [address] [place] [address], . tel:[phone] Family History Family Member Type Diagnosis Age At Onset No Information Payers Payer name Insurance type Covered republican ID Authoriza tiliz(s) Hum[employer] Medicare Replacement CI [id number] Social History Type Description Quantity Date Captured [...]
--- OUTSIDE RECORDS SUMMARY | 2025-03-28 11:56 | XMS_ITS | Clinical Summary ---
Author Organization Healthcare Address [address] [place] [address] Care Team Providers Care Sole Cutter Name Role Phone Pita Martinez MD Unavailable [phone] Srinivasan Smith MD Primary Care Provider [phone] Allergies Active Allergy Reactions Criticality Noted Date Comments Amoxicillin-Pot Clavulanate Unknown - Pa tient states they do not know rxn details Low 02/01/2024 Medications omega-3 (Fish Oil) 1000 MG capsule once daily. 6 Active amLODIPine (Norvasc) 10 MG tablet Take 1 tablet (10 mg) by mouth 1 (one) time each day. 1 Active atorvastatin (Lipitor) 80 MG tablet Take 1 tablet (80 mg) by mouth every night. 7 Active carvedilol (Coreg) 12.5 MG tablet Take 1 tablet (12.5 mg) by mouth 2 (two) times a day. 1 Active cholecalciferol (Vitamin D-3) 50 MCG (2000 UT) capsule Take by mouth 1 (one) time each day. 6 Active cyanocobalamin (Vitamin B-12) 1000 MCG tablet Take 1 tablet (1,000 mcg) by mouth 1 (one) time each day. 8 Active zinc gluconate 50 MG tablet Take 1 tablet (50 mg) by mouth 1 (one) time each day. Active Multiple Vitamin (multivitamin) tablet Take 1 tablet by mouth 1 (one) time each day. Active isosorbide mononitrate ER (Imdur) 30 MG 24 hr tablet Take 1 tablet (30 mg total) by mouth 1 (one) time each day. Do not crush or chew. 30 tablet 11 2 Active Calcium Polycarbophil (FIBERCON PO) Take by mouth. Takes 3 am and 3 pm Active memantine (Namenda) 5 MG tablet Take 1 tablet (5 mg) by mouth 2 (two) times a day. 3 Active levothyroxine (Synthroid, Levoxyl) 112 MCG tablet Take 1 tablet (112 mcg) by mouth 1 (one) time each day. 4 Active busPIRone (Buspar) 5 MG tablet Take 1 tablet (5 mg) by mouth 2 (two) times a day if needed. 4 Active Jardiance 25 MG Take 1 tablet (25 mg) by mouth 1 (one) time each day. Active escitalopram (Lexapro) 10 MG tablet Take 1 tablet (10 mg) by mouth 1 (one) time each day. 4 Active Viberzi 100 MG tablet Take 100 mg by mouth 2 (two) times a day. 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 01/20/2022 Diaphragmatic hernia without obstruction or gang manjit 01/20/2022 Dysphagia, unspecified 01/20/2022 Obstructive sleep apnea (adult) (pediatric) 01/02 Old myocardial infarction 01/20/2022 Presence of coronary angioplasty implant and gra ft 01/20/2022 Presence of prosthetic heart valve 01/20/2022 Unspecified asthma with status asthmaticus 01/20 Nonrheumatic aortic valve stenosis 01/19/2022 Overweight with body mass in dex (BMI) of 25 to 25.9 in adult 12/23/2021 Postoperative hypothyroidism 12/08/2021 Mixed anxiety and depressive disorder 12/08/2021 Hyperlipidemia 12/08/2021 Microalbuminuria 12/08/2021 Mild cognitive impairment 12/08/2021 Osteoporosis 12/08/2021 Pancytopenia 12/08/2021 Pulmonary nodule 12/08/2021 Seasonal allergies 12/08/2021 Serum creatinine raised 12/08/2021 Type 2 diabetes mellitus with other specified co mplication 12/08/2021 Vitamin D deficiency 12/08/2021 Bradycardia 04/26/2019 Paraesophageal hernia 12/22/2017 Essential hypertension 12/26/2014 Atrial septal defect within oval fossa 3 Congenital insufficiency of aortic valve 013 Ischemic heart disease 07/03/2013 Resolved Problems Problem Noted Date Diagnosed Date Resolved Date Transient ischemic attack 12/08/2021 Aortic stenosis 12/26/2014 01/20/2022 Immunizations Immunization Administration Dates Next Due Hep A, Adult 10/06/2018 Influenza, high-dose, quadrivalent 07/02,07/09/2022,06/25/2021,07/05,06/29/2019,07/16/2018,07/16/2018 Influenza, injectable, quadrivalent 07/13/2017 Influenza, seasonal, injectable 07/21/2010 [employer] COVID-19 Vac cine (Purple Cap) 12+ 07/09/2021 Pneumococcal Conjugate PCV 13 02/04/2018 Pneumococcal Polysaccharide PPV23 07/05/2020, Rsvpref, Recombinant, Protei n Subunit, Adjuvent 11/15/2023 TD (adult), 2 Lf tetanus tox oid, preservative free, adsorbed 12/07/1996 Tdap 10/29/2015 Zoster, Recombinant 06/18/2020,10/10/2019 Zoster, live 06/16/2013 Family History Medical History Relation Name Comments Heart disease Father Hypertension Father Dementia Mother Cervical cancer Sister 1 Diabetes Sister 2 Anesthesia problems Neg Hx Malig Hyperthermia Neg Hx Relation Name Status Comments Father Mother Sister 1 Sister 2 Social History Tobacco Use Types Packs/Day Years Used Date Smoking Tobacco: Former Cigarettes 0.3 30 1 965 - 1994 Passive Smoke Exposure: Past Smokeless Tobacco: Never Tobacco Cessation:Counseling Given: No Alcohol Use Standard Drinks/Week Comments Yes 0 (1 standard drink = 0.6 oz pur e alcohol) PHQ-2 Answer Date Recorded Patient Health Questionnaire-2 Score 0 02/01/2024 Comments No Sex and Gender Information Value Date Recorded Sex Assigned at Female 11/12/2021 2:47 PM EST Legal Sex Female 7:27 PM EDT Gender Identity Female 11/12/2021 2:47 PM EST Sexual Orientation Not on file Last Filed Vital Signs Vital Sign Reading Time Taken Comments Blood Pressure 152/75 02/01/2024 1:20 PM EDT rep eat BP Pulse 54 02/01/2024 1:19 PM EDT Temperature 37.6 C (99.6 F) 01/20/2022 11:28 AM EDT Respiratory Rate 14 02/01/2024 1:19 PM EDT Oxygen Saturation 99% 02/01/2024 1:19 PM EDT Inhaled Oxygen Concentration - - Weight 52 kg (114 lb 10.2 oz) 02/01/2024 1:19 PM EDT Height 157.5 cm (5' 2 ) 02/01/2024 1:19 PM EDT Body Mass Index 20.97 02/01/2024 1:19 PM EDT Plan of Treatment Upcoming Encounters Date Type Department Care Team (Late st Contact Info) Description 05/22/2025 2:20 PM EDT Office Visit [facility] [place] [address] [place] [address] Pita Martinez MD [address] [place] [address] Health Maintenance Due Date Last Done Comments [facility]-Bone Density Scan 1940 [facility]-Medicare Annual Wellness (AWV) 1940 [facility]-Infant/Child/Adol SDOH Screenings 1940 Diabetes: Dental Exam 1952 [facility]- SDOH Screenings 1960 [facility]-Adult SDOH Screenings 1958 [facility]-Diabetes: Hemoglobin A1C 08/17/2018 02/17/2018 [id number] Vaccine ( season) 2024 08/06/2022, 04/16/2022, 07/09/2021, Additional history exists [facility]-Depression Screening 01/31/2025 02/01/2024 [facility]-Influenza Vaccine (Season Ended) 2025 07/02/2023, 07/09/2022, 06/25/2021, Additional history exists [facility]-DTaP,Tdap,and Td Vaccines (2 - Td or Tdap) 10/29/2025 10/29/2015, 12/07/1996 [facility]-Hepatitis A Vaccines Aged Out 10/06/2018 No longer eligible based on patient's age to complete this topic [facility]-Zoster Vaccines Completed 06/18/2020, 10/10/2019, 06/16/2013 [facility]-Pneumococcal Vaccine: 50+ Years Completed 07/05/2020, 02/04/2018, 10/30/2013 [facility]-RSV Vaccine: 60+ Years or Completed 11/15/2023 HPV Vaccines Aged Out No longer eligi ble based on patient's age to complete this topic [facility]-HIB Vaccines Aged Out No longer e ligible based on patient's age to complete this topic [facility]-IPV Vaccines Aged Out No longer e ligible based on patient's age to complete this topic [facility]-Rotavirus Vaccines Aged Out No lo nger eligible based on patient's age to complete this topic Medical Devices Implanted Type Area Hand Fabric Cutter Device Identifier Shelf Expiration Date Model / Serial / Lot Valve Kit Jay 3 Ultra Tavr 23mm - [id number] - [id number] Implanted:Qty: 1 on 01/19/2022 by Rochelle Barron MD at [facility] N/A: Heart [id number] 02/20/2023 [id number] / [id number] / [id number] Procedures Procedure Name Priority Date/Time Associated Diagnosis Comments HEMOGLOBIN A1C Routine 02/17/2018 11:50 AM EDT from Last 3 Months or Most Recently Relevant to Health Maintenance Results * (ABNORMAL) Hemoglobin A1c (02/17/2018 11:50 AM EDT) Hemoglobin A1c 6.7(H) 4.7 - 6.0 % [facility] Comment: Glycohemoglobin Reference Range, 0 years and up: 4.7 to 6.0% . HA1C Interpretive Data: Diagnosis of Diabetes: Diabetic > or = 6.5% Pre-diabetic 5.7 to 6.4% Non-diabetic < or = 5.6% . Glycemic Targets for Type I and Type II Diabetics: Non- Adults <7.0% Adults <6.0% Children and Adolescents <7.5% . Source: [place] [employer]. Standards of medical care in diabetes, 2017. Diabetes Care.2017:40 (suppl 1):S1-S135. . HbA1c assay performed by an ion-exchange chromatography method that is certified traceable to the DCCT. 02/17/2018 11:5 0 AM EDT 02/17/2018 12:19 PM EDT Sunita [facility]IN[facility] LAB BLOOD ORDERABLES Final Result [facility]QUEST from Last 3 Months or Most Recently Relevant to Health Maintenance Insurance [place] [id number] [employer] MEDICARE Advance Directives * Full Code (Latest Code Status on File) Date Activated Date Inactivated Comments 01/19/2022 8:28 AM 01/20/2022 2:51 PM Question Answer Comments Patient has decision-making capacity? Yes Care Teams Sole Cutter Relationship Specialty Start Date End Date Srinivasan Smith MD [address] [place] [address] PCP - General Internal Medicine 01/20/22 Pita Martinez MD [address] [place] [address] Referring Physician Interventional Cardiology 12/23/21
[2025-03-28 12:39] LABS: Eosinophils # 0.2 Kmm3 (0.0-0.4); Eosinophils % 5.3 % (0.1-12.0); Hematocrit 35.7 % (37.0-47.0); Hemoglobin 11.1 g/dL (12.2-16.2); Immature Granulocytes # 0.01 10^3uL; Immature Granulocytes % 0.3 %; Lymphocytes % 24.9 % (10-50); Mean Corpuscular HGB Conc 31.1 g/dL (31.8-35.4); Mean Corpuscular Hemoglobin 28.8 pg (27.0-31.2); Mean Corpuscular Volume 92.7 fl (81-99); Mean Platelet Volume 13.2 fl (7.4-10.4); Monocytes # 0.3 K/mm3 (0.1-1.0); Monocytes % 7.8 % (1.7-9.3); Neutrophils # 2.4 K/mm3 (1.8-7.8); Neutrophils % 60.7 % (37.0-80.0); Nucleated Red Blood Cells # 0 10^3/uL; Nucleated Red Blood Cells % 0 %; Platelet Count 107 K/mm3 (142-424); Red Blood Count 3.85 M/mm3 (4.20-5.40); Red Cell Distribution Width 14.5 % (11.5-17.5); Red Cell Distribution Width-SD 49.3 fL
== END 2025-03-28 23:59 | disposition home or self-care (01) ==
LOC: LAB 11:54
PROVIDERS: PCP Nurse Practitioner Family; Visit Provider Internal Medicine Medical Oncology
DX: D61.818 Other pancytopenia (principal)
CPT/HCPCS: 36415; 85025

== ENCOUNTER 2025-08-29 14:38 | Emergency (ER) | payer MEDICARE, SELFPAY ==
--- OUTSIDE RECORDS SUMMARY | 2022-04-07 09:30 | XMS_ITS | Continuity of Care Document ---
Author Organization [facility] Address [address] [place] [address] Phone Care Team Providers Care Oracle Hyperion Consultant Name Role Phone Grayson Ellis OD, Ada [...] OFFICE/OUTPA TIENT VISIT, EST [facility], [address] [place], [place] [address], [place], [address], [place] tel:[phone] [facility] diabetic eye exam (chief complaint) Type 2 diabetes mellitus without complication, without long-term current use of insulinPresby opiaBilateral posterior capsular opacification PVD (posterior vitreous detachment), bilateral 2 Grayson Ellis OD Ada. [address] [place] [address], [address] [place] [address], . tel:[phone] Referring Provider: Theodora Ellis OD, [facility] [place], [place], [address] [place] [address]. tel:[phone] [facility], [address] [place] [address] 100, [place], [place], [facility], tel:[phone] [facility] diabetic eye exam (chief complaint) PresbyopiaTyp e 2 diabetes mellitus without complication, without long-term current use of insulinBilate ral posterior capsular opacification 1 Grayson Ellis OD Ada. 102 [place], [place], [address] [place] [address], . tel:[phone] Referring Provider: Theodora Ellis OD, [address] [place] [address], [address] [place] [address]. tel:[phone] [facility], [facility] [address] [place] [address] 100, [facility] [place], [facility], [place] tel:[phone] Eye [facility] No Information 1 Grayson Ellis OD Ada. [address] [place] [address], [address] [place] [address], . tel:[phone] Family History Family Member Type Diagnosis Age At Onset No Information Payers Payer name Insurance type Covered libertarian ID Authoriza tiliz(s) Hum[employer] Medicare Replacement CI [id number] Social History Type Description Quantity Date Captured [...]
[2025-08-29 14:46] VITALS: BP 197/99; PULSE 68; RESP 16; TEMP 36.6; O2SAT 99; BMI 18.4
--- NOTE | 2025-08-29 15:03 | CT_ITS ---
FINAL REPORT TECHNIQUE: Thin section axial images were obtained from skull base to vertex without contrast. Coronal reconstruction images were obtained from the axial data. Exam was performed using dose reduction techniques such as automated exposure control, adjustment of the mA and kV according to patient size, and use of iterative reconstruction technique. CLINICAL HISTORY: Confusion FINDINGS: There is atrophy. No mass effect or midline shift. No intracranial hemorrhage. No hydrocephalus. Periventricular low density is likely related to changes of chronic small vessel ischemia. 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 The basilar cisterns are preserved. The posterior fossa is without acute abnormality. The soft tissues are without acute abnormality. No acute osseous abnormality is identified. IMPRESSION: No acute intracranial abnormality. Atrophy and changes suggesting chronic small vessel ischemia. Reviewed, Interpreted and Dictated by Althea Serrano MD Transcribed by Mckenzie Lai Authenticated and [facility]
--- NOTE | 2025-08-29 15:03 | CT_ITS ---
FINAL REPORT TECHNIQUE: Thin section axial images were obtained through the cervical spine without contrast. Multiplanar reconstruction images were obtained from the axial data. Exam was performed using dose reduction techniques. CLINICAL HISTORY: Confusion; possible fall FINDINGS: There is no acute fracture or acute malalignment of the cervical spine. There is multilevel degenerative disc disease, most pronounced at C5-6 and C6-7. There is no evidence of unilateral or bilateral facet lock. Vertebral body height is preserved. No acute paraspinal abnormality is identified. IMPRESSION: Multilevel degenerative disc disease. Reviewed, Interpreted and Dictated by Althea Serrano MD Transcribed by Mckenzie Lai Authenticated and [facility]
--- OUTSIDE RECORDS SUMMARY | 2025-08-29 15:08 | XMS_ITS | Clinical Summary ---
Author Organization [facility] Address [address] [place] [address] Care Team Providers Care Estimator And Drafter Name Role Phone Provider, No Known Primary Care Provider Unavail able Allergies No known active allergies Medications escitalopram (LEXAPRO) 10 MG tablet 2018 Active carvedilol (COREG) 12.5 MG tablet 06/28/2018 Active atorvastatin (LIPITOR) 80 MG tablet 06/13/2018 Active amLODIPine (NORVASC) 10 MG tablet 09/01/2018 Active levobunolol (BETAGAN) 0.5 % ophthalmic solution 1 drop Every Night. Active levothyroxine (SYNTHROID, LEVOTHROID) 100 MCG tablet Take 100 mcg by mouth Daily. Active metFORMIN (GLUCOPHAGE) 1000 MG tablet Take 1,000 mg by mouth 2 (Two) Times a Day With Meals. Active amoxicillin-clavu lanate (AUGMENTIN) 875-125 MG per tabletIndications :Acute recurrent pansinusitis Take 1 tablet by mouth 2 (Two) Times a Day. 20 tablet 09/03/2018 Active Active Problems No known active problems Family History Medical History Relation Name Comments Cancer Brother Diabetes Brother Diabetes Father Heart disease Father Heart disease Maternal Grandfather Heart disease Maternal Grandmother Heart disease Mother Heart disease Paternal Grandfather Heart disease Paternal Grandmother Cancer Sister Diabetes Sister Relation Name Status Comments Brother Father Maternal Grandfather Maternal Grandmother Mother Paternal Grandfather Paternal Grandmother Sister Social History Tobacco Use Types Packs/Day Years Used Date Smoking Tobacco: Former Cigarettes 0.3 40 Abuse Screen Answer Date Recorded Unsafe at Home or Work/School Not on file Feels Threatened by Someone? Not on file 09/2023 Does Anyone Keep You from Co ntacting Others or Doint Things Outside the Home? Not on file 07/15/2023 Physical Sign of Abuse Present Not on file 1 Housing Stability Answer Date Recorded Current Living Arrangements Not on file 07/04 Potentially Unsafe Housing Conditions Not on bala e 07/15/2023 Family and Community Support Answer Erll e Recorded Help with Day-to-Day Activities Not on file 07/15/2023 Lonely or Isolated Not on file 07/15/2023 Employment Answer Date Recorded Do you want help finding or keeping work or a nori b? Not on file 07/15/2023 Disabilities Answer Date Recorded Concentrating, Remembering, or Making Decisions Difficulty Not on file 07/15/2023 Doing Errands Independently Difficulty Not on fi le 07/15/2023 Education Answer Date Recorded Help with school or training? Not on file Preferred Language Not on file 07/15/2023 Comments No Sex and Gender Information Value Date Recorded Sex Assigned at Not on file Legal Sex Female 10:14 AM EST Gender Identity Not on file Sexual Orientation Not on file Last Filed Vital Signs Vital Sign Reading Time Taken Comments Blood Pressure 118/68 09/03/2018 10:42 AM EST Pulse 84 09/03/2018 10:35 AM EST Temperature 36.6 C (97.8 F) 09/03/2018 10:35 AM EST Respiratory Rate 12 09/03/2018 10:35 AM EST Oxygen Saturation 98% 09/03/2018 10:35 AM EST Inhaled Oxygen Concentration - - Weight 56.7 kg (125 lb) 09/22/2022 11:05 AM EST Height 152.4 cm (5') 09/22/2022 11:05 AM EST Body Mass Index 24.41 09/22/2022 11:05 AM EST Plan of Treatment Health Maintenance Due Date Last Done Comments DXA SCAN 1940 RSV Vaccine - Adults (1 - 1- dose 75+ series) 2017 ANNUAL PHYSICAL 09/03/2018 INFLUENZA VACCINE 05/04/2025 07/09/2022, , 06/25/2021, Additional history exists COVID-19 Vaccine (6 - 2024-2 6 season) 2025 08/06/2022, 04/16/2022, 07/09/2021, Additional history exists TDAP/TD VACCINES (3 - Td or Tdap) 10/29/2025 016, 12/07/1996 HEMOGLOBIN A1C Discontinued 01/14/2018, 10/21/2016 ZOSTER VACCINE Completed 06/18/2020, 04/2020, 06/16/2013 Pneumococcal Vaccine 50+ Completed 020, 02/04/2018, 10/30/2013 Insurance MEDICARE ADVANTAGE Care Teams Estimator And Drafter Relationship Specialty Start Date End Date Provider, No Known [facility] [place] [address] PCP - General 09/03/18
--- NOTE | 2025-08-29 15:11 | PC.NURSE ---
patient unable to provide urine specimen at this time. patient and family educated to let staff members know when she has the need to go so we can collect a sample from her.
--- NOTE | 2025-08-29 15:12 | ED_ITS ---
<Statement entered by Ramana De Jesus DO - 08/30/25 00:57> I was consulted by the KALLI, and we discussed the complexity of problems being addressed. I approved the treatment and management plan for this patient's care in the emergency department, thus performing a substantive portion of the medical decision making. 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 Patient states that she had this episode where she was seeing her body from a third person perspective. She does have mild cognitive decline but she is appropriately alert and oriented on my exam and seems well overall. She is stable from a vital sign perspective. We proceeded with a CT scan of the head as well as hematologic labs and a urinalysis. Majority of her workup was unremarkable aside from her TSH being high, T4 being low, which I attribute to the fact that she recently underwent a move and states that she did not take her medicine for a few days. We have asked the patient to continue taking her Synthroid and to follow-up with her primary care physician to ensure that she has restored normal thyroid metabolism. Additionally, the patient did have a urinalysis that showed findings consistent with a urinary tract infection with too numerous to count white blood cells as well as bacteria and leukocyte esterase. We treated the patient here with Rocephin IV and discharged her with Bactrim. We have asked her and her family to look out for findings to be compatible encephalopathy and return if this occurs. At this time all questions were answered and all parties were agreeable Discharge Plan Disposition Patient Disposition: Home, Self-Care Condition: Good Prescriptions Prescriptions: New sulfamethoxazole-trimethoprim [Bactrim DS] 800-160 mg tablet 1 tab PO BID 5 Days Qty: 10 0RF No Action isosorbide mononitrate 30 mg tablet extended release 24 hr 30 mg PO DAILY Jardiance 25 mg tablet 25 mg PO DAILY Patient Comments: TAKE 1 TABLET BY MOUTH ONCE DAILY IN THE MORNING levothyroxine 137 mcg tablet 137 mcg PO DAILY memantine 5 mg tablet 5 mg PO BID 90 Days Qty: 180 11RF Viberzi 75 mg tablet 75 mg PO BID Qty: 60 5RF Rx Instructions: must administer with a meal/food diphenoxylate-atropine 2.5-0.025 mg tablet 1 tab PO TID Qty: 90 5RF Rx Instructions: Take 1 tablet by mouth three times a day colesevelam [WelChol] 3.75 gram powder in packet 3,750 mg PO DAILY Qty: 30 5RF Rx Instructions: must dilute powder in liquid before taking carvedilol 12.5 MG tablet 12.5 mg PO BID aspirin [Aspir-81] 81 MG tablet,delayed release (DR/EC) 81 mg PO DAILY escitalopram oxalate 10 mg tablet 10 mg PO DAILY atorvastatin 80 mg tablet 80 mg PO DAILY fish oil-dha-epa 1 EACH capsule 1 each PO DAILY biotin 2,500 MCG capsule 2,500 mcg PO DAILY Referrals Follow up/Referrals: Tara Pollard APRN [Primary Care Provider, Medical] - See instructions Activity Restrictions/Add. 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 Please follow-up with your primary care provider to discuss today's ED visit with findings of worsening kidney function, abnormal thyroid, and stable anemia. Your primary care physician may want to adjust your medications or see you in the office to discuss these conditions. Return to the emergency department with any worsening of current complaints such as worsening confusion, any falls, or any other emergent medical complaint or concern. Clinical Impressions Clinical Impression: Acute kidney injury superimposed on chronic kidney disease, Abnormal thyroid blood test UTI (urinary tract infection) Qualifiers: Urinary tract infection type: acute cystitis Hematuria presence: without hematuria Qualified Code(s): N30.00 - Acute cystitis without hematuria Instructions Patient Instructions: DI for Diarrhea and Traveler's Diarrhea in Adults, DI for Diarrhea and Traveler's Diarrhea in Children, DI for Nausea in Adults, DI for Nausea in Children Print Language Print Language: Greek Discharge ED Provider: Ramana De Jesus Adult HPI General Chief complaint: Nausea/Vomiting/Diarrhea Stated complaint: Confused Time Seen by Provider: 08/29/25 14:48 Mode of Arrival: Ambulatory Source of Information: Patient Description of Symptoms (Recalled from ER Triage Doc. by RN): Patient states she has had diarrhea since last night and also feels like I'm not here along with a headache that started a couple days ago but has been worse since she got up this morning. Patient states she called GI doctor- Dr. Licona office, as she has IBS, about diarrhea, but did not hear back from him. History of Present Illness HPI narrative: Patient is a pleasant 85-year-old female who presents to the emergency department with her family with worries for worsening confusion. Patient states that for the past several days she has felt like she is floating above herself and feels like her balance has worsened. States she thinks that her appetite has worsened as well. Patient does have diagnosis of dementia, and was recently moved to a new home with her . Patient's family states that they are unsure if she may have fallen in the new home. Patient and family deny any fever, denies chest pain, shortness of breath, abdominal pain, or any other complaints. Related Data Home Medications ?Medication ?Instructions ?Recorded ?Confirmed aspirin 81 mg tablet,delayed 81 mg PO DAILY thinner 07/18/25 release (Aspir-) carvedilol 12.5 mg tablet 12.5 mg PO BID blood pressur e 10/18/18 07/18/25 biotin 2,500 mcg capsule 2,500 mcg PO DAILY Supplemen t 06/04/21 07/18/25 fish oil-dha-epa 1,200 mg-144 1 each PO DAILY Suppleme nt 06/04/21 07/18/25 mg-216 mg capsule isosorbide mononitrate 30 mg 30 mg PO DAILY High blood pressure 08/20/22 07/18/25 tablet,extended release 24 hr atorvastatin 80 mg tablet 80 mg PO DAILY Cholesterol 0 10/20/22 07/18/25 escitalopram oxalate 10 mg tablet 10 mg PO DAILY Anxie ty 04/01/23 07/18/25 empagliflozin 25 mg tablet 25 mg PO DAILY 12/14/23 (Jardiance) levothyroxine 137 mcg tablet 137 mcg PO DAILY 08/22/24 07/18/25 Previous Rx's ?Medication ?Instructions ?Recorded memantine 5 mg tablet 5 mg PO BID 90 days #180 tab s 03/01/25 diphenoxylate-atropine 2.5 1 tab PO TID #90 tabs 03/07 mg-0.025 mg tablet eluxadoline 75 mg tablet (Viberzi) 75 mg PO BID #60 ta bs 07/18/25 colesevelam 3.75 gram oral powder 3,750 mg PO DAILY #3 0 ea 08/29/25 packet (WelChol) sulfamethoxazole 800 1 tab PO BID 5 days #10 tabs 08/29/25 mg-trimethoprim 160 mg tablet (Bactrim DS) Allergies Allergy/AdvReac Type Severity Reaction Status Date / Time No Known Allergies Allergy Verified 08/29/25 14:56 [facility] Disclaimer: The information contained in this section may have been updated after the patient was seen, as this information can be updated by other users. Medical History T2DM (type 2 diabetes mellitus) Coronary artery disease Hyperlipidemia Hypertension Surgical History H/O heart artery stent H/O: hysterectomy No history of previous surgery Family History Other Cancer Coronary artery disease Diabetes Heart attack Stroke Social History Smoking Status: Never smoker alcohol intake: never substance use type: denies use current occupational status: employed Travel in the last 8 weeks?: None household members: spouse housing: house marital status: number of children: 2 caffeine: No Have you lived/traveled outside [place] in past 30 days?: No Contact w/someone who lives/traveled outside US past 30 days?: No Exposure to someone with infectious disease in past 14 days?: No Do you have a fever (greater than 100.4 F or 38 C)?: No Have you tested positive for COVID-19?: No Exposed to someone with COVID-19 in past 14 days?: No Do you have a sore throat?: No Do you have a cough?: No Do you have any weakness?: No Do you have any diarrhea?: No Are you experiencing any unusual bleeding?: No Do you have any muscle aches/pain?: No Do you have any abdominal pain?: No Are you experiencing loss of taste or smell?: No Other Medical History Have you received the Flu Vaccine for this season: No Have you received the Pneumonia Vaccine: Yes ROS Obtained: Yes Systems reviewed as appropriate & no additional complaints except as documented Physical Exam General General appearance: alert and in no apparent distress Head Head exam: atraumatic and normocephalic Eye Eye exam: Present normal appearance, PERRL and EOMI; Absent jaundice or conjunctival injection ENT ENT exam: Present normal exam, normal oropharynx and mucous membranes moist Neck Neck exam: Present normal inspection and trachea midline Chest Chest inspection: Present normal inspection and symmetric chest wall rise; Absent tenderness Respiratory Respiratory exam: Present normal lung sounds bilaterally; Absent wheezes, stridor or accessory muscle use Cardiovascular Cardiovascular exam: Present regular rate, normal rhythm, +S1 and +S2 Abdominal Exam Abdominal exam: Present soft and normal bowel sounds; Absent distention, tenderness or guarding Extremities Exam Extremities exam: Present normal capillary refill; Absent tenderness Neurological Exam Neurological exam: Present alert and oriented X3; Absent normal gait or motor sensory deficit Psychiatric Psychiatric exam: Present normal affect and normal mood Skin Skin exam: Present warm and dry Medical Decision Making Medical Records Screening: Per USPSTF and CDC recommendations, given the prevalence of disease in our region, it is our hospital?s policy to screen for HIV and viral Hepatitis for all patients aged 18 and over and those with ongoing risk factors. Terry Inquiry Pt receiving controlled substance: No Vital Signs: 08/29/25 14:46 Temperature 98 F Temperature Source Oral Pulse Rate [Right Brachial] 68 Respiratory Rate 16 Blood Pressure [Right Arm] 197/99 H Blood Pressure Mean [Right Arm] 131 Blood Pressure Source [Right Arm] Automatic Cuff Blood Pressure Position [Right Arm] Supine 02 Sat by Pulse Oximetry 99 Oxygen Delivery Method Room Air Lab Data Lab results reviewed: Yes I reviewed the patient's lab results. Lab Results 08/29/25 15:03: WBC 4.3 L, RBC 3.73 L, Hgb 11.0 L, Hct 34.3 L, MCV 92.0, MCH 29.5, MCHC 32.1, RDW 14.0, Plt Count 92 L, MPV 13.2 H, Neut % (Auto) 74.7, Lymph % (Auto) 16.5, [place] % (Auto) 6.5, Eos % (Auto) 1.4, Baso % (Auto) 0.7, Neut # (Auto) 3.2, Lymph # (Auto) 0.7, [place] # (Auto) 0.3, Eos # (Auto) 0.1, Baso # (Auto) 0.0, Sodium 134 L, Potassium 4.9, Chloride 105, Carbon Dioxide 24, Anion Gap 9.9, BUN 25 H, Creatinine 2.00 H, Estimated Creat Clear 15, Estimated GFR 24 L, Est GFR ( Amer) 29 L, Glucose 173 H, Calcium 10.2, Total Bilirubin 0.6, AST 34, ALT 20, Alkaline Phosphatase 54, Total Protein 7.3, Albumin 4.4, Globulin 2.9, Albumin/Globulin Ratio 1.5, TSH 35.80 H, Thyroxine (T4) 1.4 L 08/29/25 16:42: Urine Color Yellow, Urine Appearance Clear, Urine pH 5.5, Ur Specific [place] 1.015, Urine Protein Negative, Urine Glucose (UA) Negative, Urine Ketones Negative, Urine Blood Negative, Urine Nitrate Negative, Urine Bilirubin Negative, Urine Urobilinogen 0.2, Ur Leukocyte Esterase 2+ A, Urine RBC None, Urine WBC Tntc, Ur Squamous Epith Cells 3-5, Urine Bacteria 3+ 08/29/25 15:03 08/29/25 15:03 Orders (Tests/Meds): ED MEDICATIONS Generic Name Dose Route Start Last Admin Trade Name Freq PRN Reason Stop Dose Admin Ceftriaxone Sodium 1 gm/ 50 mls @ 100 mls/hr 08/29/25 17:19 08/29/25 17:28 Sodium Chloride IV 08/29/25 17:48 100 mls/hr ONCE ONE Administration Sodium Chloride 10 ml 08/29/25 15:06 Sodium Chloride 0.9% 10ml Flush Syringe IV 09/28/25 15:05 NEEDED PRN Maintain IV Site Discontinued Medications Generic Name Dose Route Start Last Admin Trade Name Freq PRN Reason Stop Dose Admin Lactated Ringer's 500 mls @ 999 mls/hr 08/29/25 15:44 08/29/25 17:14 Lactated Ringer's 500ml IV 08/29/25 16:14 Infused .Q31M ONE Infusion ORDERS Category Date Time Status CT cervical spine wo con Stat Cat Scan 08/29/25 15:[address] head/brain wo con Stat Cat Scan 08/29/25 15:03 Completed Ammonia Stat Lab 08/29/25 15:06 Ordered CBC w/Auto Diff [Complete Blood Count Auto Diff] Stat Lab 08/29/25 15:03 Completed CMP [Comprehensive Metabolic Panel] Stat Lab 08/29/25 15:03 Completed T4 (Thyroxine) Stat Lab 08/29/25 15:03 Completed TSH [Thyroid Stimulating Hormone] Stat Lab 08/29/25 15:03 Completed UA [Urinalysis and Microscopic] Stat Lab 08/29/25 16:42 Completed Urine Culture Stat Micro 08/29/25 16:42 Received Medical Decision Narrative: In summary patient is a pleasant 85-year-old female who presents to the emergency department for evaluation of confusion and lightheadedness. Patient is hemodynamically stable upon arrival, afebrile. Patient's physical exam was unremarkable. She is alert and oriented but poor health historian, she is nontoxic and afebrile, GCS 15 but she is forgetful. Differential diagnosis includes UTI, subdural/epidural hemorrhagic event, electrolyte derangement. Initial workup will be conducted with labs and CT scan. Initial interventions include IV fluids. Initial workup reviewed by me labs are remarkable for UA and microscopy consistent with UTI and acute on chronic kidney injury. Otherwise labs are generally unremarkable with no other significant electrolyte derangement or transaminitis on CMP and no significant leukocytosis or anemia on CBC. Upon repeat evaluation patient states that she feels better and not lightheaded like she felt upon arrival. Given the likely explanation of patient's symptoms with the diagnosis of UTI, this patient will be stable for discharge. Should be treated with IV antibiotics in the ED, and an additional dose of antibiotics will be sent to her pharmacy of choice. She is encouraged to follow-up with her primary care provider to discuss these complaints and today's ED course. Patient and family verbalized understanding of her and amenable to this plan of care. Return precautions discussed and discharge instructions. I informally interpreted the patient's EKG as being sinus rhythm with no evidence of heart block or long QT and informally interpreted the patient's head CT is to be an unremarkable scan with no acute findings when compared to previous. Critical Care Critical Care Time Critical Care Time: No
[2025-08-29 15:23] LABS: Hematocrit 34.3 % (37.0-47.0); Hemoglobin 11.0 g/dL (12.2-16.2); Immature Granulocytes % 0.2 %; Mean Corpuscular HGB Conc 32.1 g/dL (31.8-35.4); Mean Corpuscular Hemoglobin 29.5 pg (27.0-31.2); Mean Corpuscular Volume 92.0 fl (81-99); Nucleated Red Blood Cells % 0 %; Platelet Count 92 K/mm3 (142-424); Red Blood Count 3.73 M/mm3 (4.20-5.40); Red Cell Distribution Width-SD 47.6 fL; White Blood Count 4.3 K/mm3 (4.8-10.8)
--- NOTE | 2025-08-29 15:30 | ECG_ITS ---
APPROVED REPORT Exam: Resting ECG HR:63 bpm ECG Measurements Heart Rate 63 AXES PA 170 P 58 QRSd 79 QRS 4 QT 410 T 63 QTc 418 Conclusion SINUS RHYTHM ANTEROSEPTAL MYOCARDIAL INFARCTION , OF INDETERMINATE AGE [40+ ms Q WAVE IN V1-V4] ABNORMAL ECG Electronically signed by : SOHAM MAZA, 08/30/2025 14:01:50
[2025-08-29 15:33] LABS: Alanine Aminotransferase 20 U/L (12-78); Albumin Level 4.4 g/dl (3.5-5.0); Albumin/Globulin Ratio 1.5 (1.1-1.8); Alkaline Phosphatase 54 U/L (38-126); Anion Gap 9.9 mEq/L (5-15); Aspartate Amino Transferase 34 U/L (14-36); Bilirubin,Total 0.6 mg/dl (0.2-1.3); Blood Urea Nitrogen 25 mg/dl (7-17); Calcium 10.2 mg/dl (8.4-10.2); Carbon Dioxide 24 mmol/L (22.0-30.0); Chloride 105 mmol/L (98-107); Creatinine Clearance Estimated 15 mL/min (50-200); Creatinine,Serum 2.00 mg/dl (0.52-1.04); Estimated Glomerular Filt Rate 24 ml/min (>60); GFR (African American) 29 ML/MIN (>60); Globulin 2.9 g/dL (1.3-3.2); Glucose 173 mg/dl (74-100); Potassium 4.9 mmoL/L (3.5-5.1); Sodium 134 mmol/L (136-145); Total Protein,Serum 7.3 g/dl (6.3-8.2)
[2025-08-29] MEDS: RINGERS SOLUTION,LACTATED 500 ML 999 ML IV (16:00)
[2025-08-29 16:51] LABS: Microscopic, Urine URINE MICROSCOPIC (MICROSCOPIC)
[2025-08-29 16:57] LABS: Bilirubin,Urine Negative (Negative); Color,Urine YELLOW (Yellow); Glucose,Urine (UA) Negative (Negative); Ketones,Urine Negative (Negative); Leukocyte Esterase,Urine 2+ (Negative); PH,Urine 5.5 (5.0-8.5); Protein,Urine Negative (Negative); Specific Gravity, Urine 1.015 (1.005-1.030); Urobilinogen,Urine 0.2 EU/dl (0.2)
[2025-08-29 17:14] LABS: Bacteria,Urine 3+ /lpf; WBC,Urine TNTC #/hpf (0-3)
[2025-08-29 17:16] LABS: T4 (Thyroxine) 1.4 ug/dl (5.53-11.0)
[2025-08-29 17:30] LABS: Thyroid Stimulating Hormone 35.80 uIU/mL (0.465-4.68)
[2025-08-29 17:53] VITALS: BP 190/54; PULSE 72; RESP 20; TEMP 36.6; O2SAT 100
--- NOTE | 2025-08-30 09:39 | PC.NURSE ---
PRELIM URINE CULTURE DISCUSSED WITH . NO CHANGE NEEDED TO THE PTS TREATMENT.
--- NOTE | 2025-08-31 08:19 | PC.NURSE ---
Urine culture results reviewed, patient discharged home on appropriate antibiotic, no action needed.
== END 2025-08-29 18:02 | disposition home or self-care (01) ==
PROVIDERS: Physician Assistant; Emergency Provider Student in an Organized Health Care Education/Training Program; PCP Nurse Practitioner Family
DX: N39.0 Urinary tract infection, site not specified (principal); R41.0 Disorientation, unspecified; N17.9 Acute kidney failure, unspecified; E03.9 Hypothyroidism, unspecified; E11.9 Type 2 diabetes mellitus without complications; I10 Essential (primary) hypertension; E78.5 Hyperlipidemia, unspecified; B96.20 Unspecified Escherichia coli [E. coli] as the cause of diseases classified elsewhere; Z79.84 Long term (current) use of oral hypoglycemic drugs
CPT/HCPCS: 70450; 72125; 80053; 81001; 84436; 84443; 85025; 87086; 87088; 87186; 93005; 96365; 99285; J0696; J7120

== ENCOUNTER 2025-09-03 04:28 | Emergency (ER) | payer MEDICARE, SELFPAY ==
--- OUTSIDE RECORDS SUMMARY | 2022-04-07 09:30 | XMS_ITS | Continuity of Care Document ---
Author Organization [facility] Address [address] [place] [address] Phone Care Team Providers Care Control Analyst Name Role Phone Grayson Ellis OD, Ada Unavailable Unavailable Allergies, Adverse Reactions, Alerts Substance Reaction Status Criticality No Known Allergies Active No Inform ation Medications Medication Instructions Dosage Effective Dates (start - stop) Status Comments levothyroxine 137 mcg tablet - Active cetirizine 10 mg tablet TAKE 1 TABLET BY MOUTH ONCE DAILY FOR 30 DAYS - Active cefuroxime axetil 250 mg tablet TAKE 1 TABLET BY MOUTH EVERY 12 HOURS FOR 7 DAYS - Active buspirone 5 mg tablet - Acti ve hyoscyamine 0.125 mg sublingual tablet - Active lisinopril 5 mg tablet - Act jessica atorvastatin 80 mg tablet - Active amlodipine 10 mg tablet - Ac tive metformin 500 mg tablet - Ac tive Procedures Procedure Date REFRACTION OFFICE/OUTPATIENT VISIT, EST REFRACTION COMPREHENSIVE EYE EXAM, NEW PATIENT Advance Directives Directive Yes / No Effective Date File Name No Information Encounters Encounter Description Practice Location Reason(s) For Visit Diagnoses Date Provider Providers Copied on Encounter OFFICE/OUTPA TIENT VISIT, EST [facility], [address] [place], [place] [address], [place], [address], [place] tel:[phone] [facility] diabetic eye exam (chief complaint) Type 2 diabetes mellitus without complication, without long-term current use of insulinPresby opiaBilateral posterior capsular opacification PVD (posterior vitreous detachment), bilateral 2 Grayson Ellis OD Ada. [address] [place] [address], [address] [place] [address], . tel:[phone] Referring Provider: Theodora Ellis OD, [facility] [place], [place], [address] [place] [address]. tel:[phone] [facility], [address] [place] [address] 100, [place], [place], [facility], tel:[phone] [facility] diabetic eye exam (chief complaint) PresbyopiaTyp e 2 diabetes mellitus without complication, without long-term current use of insulinBilate ral posterior capsular opacification 1 Grayson Ellis OD Ada. [address] [place], [place], [address] [place] [address], . tel:[phone] Referring Provider: Theodora Ellis OD, [address] [place] [address], [address] [place] [address]. tel:[phone] [facility], [facility] [address] [place] [address] 100, [facility] [place], [facility], [place] tel:[phone] [facility] No Information 1 Grayson Ellis OD Ada. [address] [place] [address], [address] [place] [address], . tel:[phone] Family History Family Member Type Diagnosis Age At Onset No Information Payers Payer name Insurance type Covered constitution party ID Authoriza tiliz(s) Hum[employer] Medicare Replacement CI [id number] Social History Type Description Quantity Date Captured Comments Alcohol Use Details Unknown Caffeine Use Details Unknown Tobacco Use Status Current non-smoker Smoking Status Never smoker Non-Smoking Tobacco Use Details : No Details Available : No Details Available Sex Female Chief Complaint And Reason For Visit From encounter dated '04/07/2022 14:30'. diabetic eye exam (chief complaint). Description: The 81 year old female presents for evaluation ofdiabetic eye exam in the right eye and left eye. It started about 30 year(s) ago. Pt states last A1c was 7.2 and unsure of LBS. Pt states she is taking Metformin for treatment. The onset was gradual.It affects near vision. Pt states she is noticing more floaters at night in OD that started a monthago. Associated symptoms include: floaters. Patient denies: eye pain, flashes, halos and headaches.Pt denies using gtts. Reason For Referral Reason For Referral No Information Plan Of Treatment Date Type Action Status Patient Education Learning About Your Eye s completed Patient Education Learning About Your Eye s completed History Of Present Illness Encounter Date Complaint History Of Prese nt Illness diabetic eye exam The 81 year ol d female presents for evaluation of diabetic eye exam in the right eye and left eye. It started about 30 year(s) ago. Pt states last A1c was 7.2 and unsure of LBS. Pt states she is taking Metformin for treatment. The onset was gradual. It affects near vision. Pt states she is noticing more floaters at night in OD that started a month ago. Associated symptoms include: floaters. Patient denies: eye pain, flashes, halos and headaches. Pt denies using gtts. diabetic eye exam The 80 year ol d female presents for evaluation of diabetic eye exam in the right eye and left eye. It started about 20 year(s) ago. The onset was gradual. The symptom is constant. Patient denies: change in vision, decreased vision, eye pain and flashes and headaches. Associated symptoms include: floaters. Patient notes new floaters OD>OS. Patient wears OTC readers only. Patient's last A1c was 7.1, six weeks ago, BS is not monitored at home. Patient is on oral medication. Patient denies using any gtts. Functional Status Date Functional Assessmen t No Information Instructions Date Instruction Additional Infor mation Impression/Plan Related to Bilat eral posterior capsular opacification Impression/Plan Related to Presb yopia Impression/Plan Related to PVD ( posterior vitreous detachment), bilateral Impression/Plan Related to Type 2 diabetes mellitus without complication, without long-term current use of insulin Impression/Plan Related to Type 2 diabetes mellitus without complication, without long-term current use of insulin Impression/Plan Related to Bilat eral posterior capsular opacification Impression/Plan Related to Presb yopia Assessments Type Assessment Date assessment Type 2 diabetes desmond itus without complication, without long-term current use of insulin assessment Presbyopia assessment Bilateral posterior capsular opa cification impression Type 2 diabetes desmond itus without complication, without long-term current use of insulin: E11.9 impression Bilateral posterior capsular opa cification: H26.493 impression Presbyopia: H52.4 assessment PVD (posterior vitreous detachme nt), bilateral impression PVD (posterior vitreous detachme nt), bilateral: H43.813 Patient Care Teams Name Effective Dates (start - stop) Status Members No Information
[2025-09-03] VITALS (11 sets, daily range): BP systolic 156–182; BP diastolic 66–74; PULSE 55–60; RESP 9–14; TEMP 36.6; O2SAT 96–100; BMI 18.6
--- NOTE | 2025-09-03 04:05 | XR_ITS ---
PROCEDURE INFORMATION: Exam: XR Chest Exam date and time: 09/03/2025 4:16 AM Age: 85 years old Clinical indication: Injury or trauma; Fall; Blunt trauma (contusions or hematomas) TECHNIQUE: Imaging protocol: Radiologic exam of the chest. Views: 1 view. COMPARISON: CR XR CHEST PORTABLE 02/01/2021 12:14 PM FINDINGS: Lungs: The lungs are hyperlucent and hyperinflated. Pleural spaces: Unremarkable. No pleural effusion. No pneumothorax. Heart/Mediastinum: Aortic valve replacement. No acute process noted. Bones/joints: Unremarkable. IMPRESSION: No acute injury identified.
--- NOTE | 2025-09-03 04:05 | XR_ITS ---
PROCEDURE INFORMATION: Exam: XR Left Hip Exam date and time: 09/03/2025 4:11 AM Age: 85 years old Clinical indication: Injury or trauma; Fall; Blunt trauma (contusions or hematomas); Left; Hip TECHNIQUE: Imaging protocol: Radiologic exam of the left hip. Views: 2 or 3 views hip with pelvis when performed. COMPARISON: No relevant prior studies available. FINDINGS: Bones/joints: Intertrochanteric fracture of the left hip. There is acute angulation at the fracture site. The femur is superiorly displaced. The femoral head is intact. Soft tissues: Unremarkable. IMPRESSION: Intertrochanteric fracture of the left hip. There is acute angulation at the fracture site. The femur is superiorly displaced. The femoral head is intact.
--- NOTE | 2025-09-03 04:05 | CT_ITS ---
PROCEDURE INFORMATION: Exam: CT Cervical Spine Without Contrast Exam date and time: 09/03/2025 4:41 AM Age: 85 years old Clinical indication: Injury or trauma; Fall; Blunt trauma TECHNIQUE: Imaging protocol: Computed tomography of the cervical spine without contrast. Radiation optimization: All CT scans at this facility use at least one of these dose optimization techniques: automated exposure control; mA and/or kV adjustment per patient size (includes targeted exams where dose is matched to clinical indication); or iterative reconstruction. COMPARISON: CT CERVICAL SPINE WO CON 08/29/2025 3:47 PM FINDINGS: Bones/joints: Mild diffuse cervical spondylosis is noted. Discs/Spinal canal/Neural foramina: Narrowing of multiple intervertebral disc spaces are seen, most prominent at C5-C6 and C6-C7 Lungs: Lung apices are normal. Vasculature: No obvious traumatic injury is seen. Carotid atherosclerosis is present. Soft tissues: Unremarkable. IMPRESSION: 1. No evidence of acute traumatic injury. 2. Mild diffuse cervical spondylosis, unchanged from prior. 3. Carotid atherosclerosis is present.
--- NOTE | 2025-09-03 04:05 | CT_ITS ---
PROCEDURE INFORMATION: Exam: CT Head Without Contrast Exam date and time: 09/03/2025 4:39 AM Age: 85 years old Clinical indication: Injury or trauma; Fall; Blunt trauma (contusions or hematomas) TECHNIQUE: Imaging protocol: Computed tomography of the head without contrast. Radiation optimization: All CT scans at this facility use at least one of these dose optimization techniques: automated exposure control; mA and/or kV adjustment per patient size (includes targeted exams where dose is matched to clinical indication); or iterative reconstruction. COMPARISON: CT CERVICAL SPINE WO CON 08/29/2025 3:47 PM FINDINGS: Brain: There is diffuse prominence of the cerebral sulci, cisterns, and ventricles consistent with atrophy. No intra or extra-axial fluid collections are noted. No mass or mass effect is seen. Periventricular white matter hypoattenuation is seen consistent with chronic small vessel disease. Cerebral ventricles: No ventriculomegaly. Paranasal sinuses: Visualized sinuses are unremarkable. No fluid levels. Mastoid air cells: Visualized mastoid air cells are well aerated. Bones: Unremarkable. No acute fracture. Soft tissues: Unremarkable. IMPRESSION: No acute process noted.
--- NOTE | 2025-09-03 04:15 | XR_ITS ---
PROCEDURE INFORMATION: Exam: XR Left Femur Exam date and time: 09/03/2025 4:16 AM Age: 85 years old Clinical indication: Injury or trauma; Fall; Blunt trauma; Hip; Left TECHNIQUE: Imaging protocol: Radiologic exam of the left femur. Views: 2 views. COMPARISON: CR XR HIP LT 2-3V W/PELVIS 09/03/2025 4:11 AM FINDINGS: Bones/joints: Intertrochanteric fracture. There is acute angulation of the fracture fragments with cephalad displacement of the femoral shaft. The femoral head appears intact. Soft tissues: Unremarkable. IMPRESSION: Intertrochanteric fracture. There is acute angulation of the fracture fragments with cephalad displacement of the femoral shaft. The femoral head appears intact.
[2025-09-03] MEDS: MORPHINE 2MG/ML SYRINGE 2 MG IV (04:25)
[2025-09-03] MEDS: KETOROLAC 15MG/ML VIAL 15 MG IV (04:25)
[2025-09-03] MEDS: ACETAMINOPHEN 500MG TAB 1000 MG PO (04:25)
--- NOTE | 2025-09-03 04:44 | HMH.EDGENADL ---
Discharge Plan Disposition Patient Disposition: Xfer Other Prescriptions Prescriptions: No Action isosorbide mononitrate 30 mg tablet extended release 24 hr 30 mg PO DAILY Jardiance 25 mg tablet 25 mg PO DAILY Patient Comments: TAKE 1 TABLET BY MOUTH ONCE DAILY IN THE MORNING levothyroxine 137 mcg tablet 137 mcg PO DAILY memantine 5 mg tablet 5 mg PO BID 90 Days Qty: 180 11RF Viberzi 75 mg tablet 75 mg PO BID Qty: 60 5RF Rx Instructions: must administer with a meal/food diphenoxylate-atropine 2.5-0.025 mg tablet 1 tab PO TID Qty: 90 5RF Rx Instructions: Take 1 tablet by mouth three times a day colesevelam [WelChol] 3.75 gram powder in packet 3,750 mg PO DAILY Qty: 30 5RF Rx Instructions: must dilute powder in liquid before taking carvedilol 12.5 MG tablet 12.5 mg PO BID aspirin [Aspir-81] 81 MG tablet,delayed release (DR/EC) 81 mg PO DAILY escitalopram oxalate 10 mg tablet 10 mg PO DAILY atorvastatin 80 mg tablet 80 mg PO DAILY fish oil-dha-epa 1 EACH capsule 1 each PO DAILY biotin 2,500 MCG capsule 2,500 mcg PO DAILY sulfamethoxazole-trimethoprim [Bactrim DS] 800-160 mg tablet 1 tab PO BID 5 Days Qty: 10 0RF Referrals Follow up/Referrals: Tara Pollard APRN [Primary Care Provider, Medical] - See instructions Clinical Impressions Clinical Impression: Closed intertrochanteric fracture, ASHLEY (acute kidney injury) Stand Alone Forms Stand Alone Forms: Transfer Record - ED Print Language Print Language: [place] Discharge ED Provider: David Francisco General Adult HPI General Chief complaint: Fall Stated complaint: fall Time Seen by Provider: 09/03/25 04:30 Mode of Arrival: EMS Source of Information: Patient and EMS Description of Symptoms (Recalled from ER Triage Doc. by RN): Pt presents to ER from home via EMS with an unwitnessed fall. Pt reports that she was getting a glass to drink and slipped and fell on her L hip. -LOC. - blood thinners. Arrives AAOx4. History of Present Illness HPI narrative: 85-year-old male with history of hypertension hyperlipidemia diabetes, recently diagnosed with UTI presents after a fall. She slipped and fell in her home landing on her left hip. She reports pain in her left hip. Denies pain anywhere else. Did not hit her head, did not lose consciousness, is not on blood thinners. Related Data Home Medications ?Medication ?Instructions ?Recorded ?Confirmed aspirin 81 mg tablet,delayed 81 mg PO DAILY thinner 10/18/18 07/18/25 release (Aspir-) carvedilol 12.5 mg tablet 12.5 mg PO BID blood pressure 10/18/18 07/18/25 biotin 2,500 mcg capsule 2,500 mcg PO DAILY Supplement 06/04/21 07/18/25 fish oil-dha-epa 1,200 mg-144 1 each PO DAILY Supplement 06/04/21 07/18/25 mg-216 mg capsule isosorbide mononitrate 30 mg 30 mg PO DAILY High blood pressure 08/20/22 07/18/25 tablet,extended release 24 hr atorvastatin 80 mg tablet 80 mg PO DAILY Cholesterol 10/20/22 07/18/25 escitalopram oxalate 10 mg tablet 10 mg PO DAILY Anxiety 04/01/23 07/18/25 empagliflozin 25 mg tablet 25 mg PO DAILY 12/14/23 07/18/25 (Jardiance) levothyroxine 137 mcg tablet 137 mcg PO DAILY 08/22/24 07/18/25 Previous Rx's ?Medication ?Instructions ?Recorded memantine 5 mg tablet 5 mg PO BID 90 days #180 tabs 03/01/25 diphenoxylate-atropine 2.5 1 tab PO TID #90 tabs 03/07/25 mg-0.025 mg tablet eluxadoline 75 mg tablet (Viberzi) 75 mg PO BID #60 tabs 07/18/25 colesevelam 3.75 gram oral powder 3,750 mg PO DAILY #30 ea 08/29/25 packet (WelChol) sulfamethoxazole 800 1 tab PO BID 5 days #10 tabs 08/29/25 mg-trimethoprim 160 mg tablet (Bactrim DS) Allergies Allergy/AdvReac Type Severity Reaction Status Date / Time No Known Allergies Allergy Verified 08/29/25 14:56 [facility] Disclaimer: The information contained in this section may have been updated after the patient was seen, as this information can be updated by other users. Medical History T2DM (type 2 diabetes mellitus) Coronary artery disease Hyperlipidemia Hypertension Surgical History H/O heart artery stent H/O: hysterectomy No history of previous surgery Family History Other Cancer Coronary artery disease Diabetes Heart attack Stroke Social History Smoking Status: Never smoker alcohol intake: never substance use type: denies use current occupational status: employed Travel in the last 8 weeks?: None household members: spouse housing: house marital status: number of children: 2 caffeine: No Other Medical History Have you received the Flu Vaccine for this season: No Have you received the Pneumonia Vaccine: Yes ROS Obtained: Yes All systems reviewed & no additional complaints except as documented Physical Exam General General appearance: alert and in no apparent distress Head Head exam: atraumatic and normocephalic Eye Eye exam: Present normal appearance, PERRL and EOMI ENT ENT exam: Present normal oropharynx and normal external ear exam Neck Neck exam: Present normal inspection and full ROM Chest Chest inspection: Present normal inspection and symmetric chest wall rise; Absent tenderness Respiratory Respiratory exam: Present normal lung sounds bilaterally; Absent respiratory distress Cardiovascular Cardiovascular exam: Present regular rate and normal rhythm Abdominal Exam Abdominal exam: Present soft; Absent distention, tenderness or guarding Extremities Exam Extremities exam: Present tenderness (Left greater trochanter. Left leg is externally rotated); Absent edema or joint swelling Back Exam Back exam: Present normal inspection; Absent tenderness Neurological Exam Neurological exam: Present alert and oriented X3; Absent motor sensory deficit Psychiatric Psychiatric exam: Present normal affect and normal mood Skin Skin exam: Present warm, dry and normal color Lymphatic Lymphatic Findings: no adenopathy Medical Decision Making Medical Records Medical records reviewed: Yes I reviewed the patient's medical records. Screening: Per USPSTF and CDC recommendations, given the prevalence of disease in our region, it is our hospital?s policy to screen for HIV and viral Hepatitis for all patients aged 18 and over and those with ongoing risk factors. Terry Inquiry Pt receiving controlled substance: No Terry was queried for this patient: No Vital Signs: 09/03/25 04:03 09/03/25 04:08 09/03/25 04:15 Temperature 97.9 F Temperature Source Oral Pulse Rate 60 55 L Pulse Rate [Left Radial] 56 L Respiratory Rate 14 14 12 Blood Pressure Blood Pressure [Right Arm] 182/71 H Blood Pressure Mean Blood Pressure Mean [Right Arm] 108 Blood Pressure Source Blood Pressure Source [Right Arm] Automatic Cuff Blood Pressure Position Blood Pressure Position [Right Arm] Supine 02 Sat by Pulse Oximetry 98 99 100 Oxygen Delivery Method Room Air Room Air Room Air 09/03/25 04:17 09/03/25 04:30 09/03/25 04:30 Temperature Temperature Source Pulse Rate 55 L Pulse Rate [Left Radial] Respiratory Rate 14 Blood Pressure 178/66 H Blood Pressure [Right Arm] Blood Pressure Mean 85 Blood Pressure Mean [Right Arm] Blood Pressure Source Blood Pressure Source [Right Arm] Blood Pressure Position Blood Pressure Position [Right Arm] 02 Sat by Pulse Oximetry 98 99 Oxygen Delivery Method Room Air Room Air 09/03/25 04:46 09/03/25 04:47 09/03/25 04:47 Temperature Temperature Source Pulse Rate 58 L Pulse Rate [Left Radial] Respiratory Rate 9 L 11 L Blood Pressure 175/74 H Blood Pressure [Right Arm] Blood Pressure Mean 90 Blood Pressure Mean [Right Arm] Blood Pressure Source Blood Pressure Source [Right Arm] Blood Pressure Position Blood Pressure Position [Right Arm] 02 Sat by Pulse Oximetry 99 98 Oxygen Delivery Method Room Air Room Air 09/03/25 05:00 09/03/25 05:01 09/03/25 05:01 Temperature Temperature Source Pulse Rate 59 L Pulse Rate [Left Radial] Respiratory Rate 9 L 11 L Blood Pressure 156/67 H Blood Pressure [Right Arm] Blood Pressure Mean 83 Blood Pressure Mean [Right Arm] Blood Pressure Source Blood Pressure Source [Right Arm] Blood Pressure Position Blood Pressure Position [Right Arm] 02 Sat by Pulse Oximetry 96 99 Oxygen Delivery Method Room Air Room Air 09/03/25 05:15 09/03/25 05:30 Temperature 97.9 F Temperature Source Oral Pulse Rate 58 L 59 L Pulse Rate [Left Radial] Respiratory Rate 13 11 L Blood Pressure 156/67 H Blood Pressure [Right Arm] Blood Pressure Mean Blood Pressure Mean [Right Arm] Blood Pressure Source Automatic Cuff Blood Pressure Source [Right Arm] Blood Pressure Position Supine Blood Pressure Position [Right Arm] 02 Sat by Pulse Oximetry 98 Oxygen Delivery Method Room Air Room Air Lab Data Lab results reviewed: Yes I reviewed the patient's lab results. Lab Results 09/03/25 04:30: WBC 12.1 H, RBC 3.11 L, Hgb 9.5 L, Hct 27.6 L, MCV 88.7, MCH 30.5, MCHC 34.4, RDW 13.4, Plt Count 76 L, MPV 13.6 H, Neut % (Auto) 88.4 H, Lymph % (Auto) 4.8 L, [place] % (Auto) 6.1, Eos % (Auto) 0.1, Baso % (Auto) 0.2, Neut # (Auto) 10.7 H, Lymph # (Auto) 0.6 L, [place] # (Auto) 0.7, Eos # (Auto) 0.0, Baso # (Auto) 0.0, PT 11.6, INR 1.05, Sodium 132 L, Potassium 5.7 H, Chloride 99, Carbon Dioxide 24, Anion Gap 14.7, BUN 37 H, Creatinine 3.00 H, Estimated Creat Clear 10, Estimated GFR 15 L*, Est GFR ( Amer) 18 L*, Glucose 143 H, Calcium 8.8, Total Bilirubin 0.5, AST 54 H, ALT 21, Alkaline Phosphatase 52, Total Protein 6.6, Albumin 3.9, Globulin 2.7, Albumin/Globulin Ratio 1.4, HCV Ab AJ w/Rflx PCR Qn Negative, HIV Ag/Ab Combo Qual Negative 09/03/25 04:30 09/03/25 04:30 Orders (Tests/Meds): ED MEDICATIONS Discontinued Medications Generic Name Dose Route Start Last Admin Trade Name Freq PRN Reason Stop Dose Admin Acetaminophen 1,000 mg 09/03/25 04:05 09/03/25 04:25 Acetaminophen 500mg Tab PO 09/03/25 04:06 1,000 mg ONCE ONE Administration Ketorolac Tromethamine 15 mg 09/03/25 04:05 09/03/25 04:25 Ketorolac 15mg/Ml Vial IV 09/03/25 04:06 15 mg ONCE ONE Administration Morphine Sulfate 2 mg 09/03/25 04:05 09/03/25 04:25 Morphine 2mg/Ml Syringe IV 09/03/25 04:06 2 mg ONCE ONE Administration Morphine Sulfate 4 mg 09/03/25 05:01 09/03/25 05:15 Morphine 4mg/Ml Syringe IV 09/03/25 05:02 4 mg ONCE ONE Administration ORDERS Category Date Time Status CT cervical spine wo con Stat Cat Scan 09/03/25 04:[address] head/brain wo con Stat Cat Scan 09/03/25 04:05 Completed CXR --portable [XR chest portable] Stat Exams 09/03/25 04:05 Completed Femur XR left 2 views [XR femur LT 2V] Stat Exams 09/03/25 04:15 Completed Hip XR left minimum 2 views [XR hip LT 2-3V w/pelvis] Exams 09/03/25 04:05 Completed Stat CBC w/Auto Diff [Complete Blood Count Auto Diff] Stat Lab 09/03/25 04:30 Completed CMP [Comprehensive Metabolic Panel] Stat Lab 09/03/25 04:30 Completed HIV Combo Stat Lab 09/03/25 04:30 Completed Hepatitis C Ab Qual. W/ RFX Stat Lab 09/03/25 04:30 Completed INR [Prothrombin Time INR] Stat Lab 09/03/25 04:30 Completed Medical Decision Narrative: 85-year-old female with history of diabetes, hypertension, CAD presents for fall from standing with isolated left hip pain. History was obtained via interactive discussion with patient, EMS, chart review. On arrival, patient is [afebrile, hemodynamically stable, satting appropriately, alert, oriented x4, GCS 15], moving all extremities spontaneously. Full physical exam performed and significant for left greater trochanter tenderness, left leg externally rotated Differential includes but is not limited to fracture, dislocation, intracranial trauma to thoracic trauma intra-abdominal trauma spine trauma extremity trauma. Patient was given Tylenol Toradol morphine for symptomatic management and correction of underlying abnormalities. Workup initiated including basic labs CT head, CT C-spine, radiographs of the chest pelvis and left femur. On re-evaluation, patient [remains afebrile, HD stable.] Laboratory workup independently interpreted by me and significant for worsening anemia, mildly elevated potassium and creatinine from baseline. Imaging independently interpreted by me and significant for left intertrochanteric hip fracture, no pneumothorax or rib fracture, no obvious intracranial bleeding or cervical fracture. See radiology read for full review of final results. Given patient history, exam and workup, patient's presentation most likely represents left hip fracture. Unfortunately, we do not have Ortho at this time. We called and spoke with [facility] who accepted the patient in transfer.. Procedures Risk/Benefits of Procedure(s) Were Explained: Yes Critical Care Critical Care Time Critical Care Time: No
[2025-09-03 04:45] LABS: Hematocrit 27.6 % (37.0-47.0); Hemoglobin 9.5 g/dL (12.2-16.2); Immature Granulocytes % 0.4 %; Mean Corpuscular HGB Conc 34.4 g/dL (31.8-35.4); Mean Corpuscular Hemoglobin 30.5 pg (27.0-31.2); Mean Corpuscular Volume 88.7 fl (81-99); Nucleated Red Blood Cells % 0 %; Platelet Count 76 K/mm3 (142-424); Red Blood Count 3.11 M/mm3 (4.20-5.40); Red Cell Distribution Width-SD 43.3 fL; White Blood Count 12.1 K/mm3 (4.8-10.8)
[2025-09-03 04:49] LABS: Albumin Level 3.9 g/dl (3.5-5.0); Chloride 99 mmol/L (98-107); Potassium 5.7 mmoL/L (3.5-5.1); Sodium 132 mmol/L (136-145)
[2025-09-03 04:52] LABS: Alanine Aminotransferase 21 U/L (12-78); Albumin/Globulin Ratio 1.4 (1.1-1.8); Alkaline Phosphatase 52 U/L (38-126); Anion Gap 14.7 mEq/L (5-15); Aspartate Amino Transferase 54 U/L (14-36); Bilirubin,Total 0.5 mg/dl (0.2-1.3); Blood Urea Nitrogen 37 mg/dl (7-17); Calcium 8.8 mg/dl (8.4-10.2); Carbon Dioxide 24 mmol/L (22.0-30.0); Creatinine Clearance Estimated 10 mL/min (50-200); Creatinine,Serum 3.00 mg/dl (0.52-1.04); Estimated Glomerular Filt Rate 15 ml/min (>60); GFR (African American) 18 ML/MIN (>60); Globulin 2.7 g/dL (1.3-3.2); Glucose 143 mg/dl (74-100); Total Protein,Serum 6.6 g/dl (6.3-8.2)
--- OUTSIDE RECORDS SUMMARY | 2025-09-03 04:52 | XMS_ITS | Encounter Summary ---
Author Organization Healthcare Address [address] [place] [address] Care Team Providers Care Fisher Oyster Name Role Phone Pita Martinez MD Unavailable [phone] Srinivasan Smith MD Primary Care Provider [phone] Reason for Referral * Consultation (Routine) - Authorized Specialty Diagnoses / Procedures Referred By Contanthony vaughan Referred To Contact Nephrology Diagnoses Microalbuminuria Elevated serum creatinine Tara Marquis APRN [address] [address] Phone: tel: fax: [facility] [address] [facility] [address], [place] [address] Phone: tel: fax: Referral ID Status Reason Start Date Expiration Date Visits Requested Visits Authorized [id number] Authorized Specialty Services Required 02/27/2027 1 1 Encounter Details Date Type Department Care Team (Latest Contact Info) Description 08/28/2025 Community [facility] [address] [place] [address] Tara Marquis APRN [address] [address] Microalbuminuria (Primary Dx); Elevated serum creatinine Social History Tobacco Use Types Packs/Day Years Used Date Smoking Tobacco: Former Cigarettes 0.3 30 1 965 - 1994 Passive Smoke Exposure: Past Smokeless Tobacco: Never Alcohol Use Standard Drinks/Week Comments Yes 0 (1 standard drink = 0.6 oz pur e alcohol) PHQ-2 Answer Date Recorded Patient Health Questionnaire-2 Score 0 02/01/2024 Comments No Sex and Gender Information Value Date Recorded Sex Assigned at Female 11/12/2021 2:47 PM EST Legal Sex Female 7:27 PM EDT Gender Identity Female 11/12/2021 2:47 PM EST Sexual Orientation Not on file documented as of this encounter Plan of Treatment Scheduled Referrals Name Type Priority Associated Diagnoses Order Schedule Ambulatory referral to Nephrology Outpatient Referral Routine Microalbuminuria Elevated serum creatinine 1 Occurrences starting 08/28/2025 until 03/01/2027 documented as of this encounter Visit Diagnoses Diagnosis Microalbuminuria- Primary Proteinuria Elevated serum creatinine Other nonspecific findings on examination of blood documented in this encounter Additional Health Concerns Assessment Noted Time A fall risk assessment has been complete d for the patient 02/01/2024 1:15 PM EDT A Body Mass Index follow-up plan has been documented for the patient 02/01/2024 2:06 PM EDT documented as of this encounter Care Teams Fisher Oyster Relationship Specialty Start Date End Date Srinivasan Smith MD [address] [place] [address] PCP - General Internal Medicine 01/20/22 Pita Martinez MD [address] [place] [phone] Referring Physician Interventional Cardiology 12/23/21 documented as of this encounter
--- OUTSIDE RECORDS SUMMARY | 2025-09-03 04:52 | XMS_ITS | Clinical Summary ---
Author Organization Healthcare Address [address] [place] [address] Care Team Providers Care Spray Mixer Name Role Phone Pita Martinez MD Unavailable [phone] Srinivasan Smith MD Primary Care Provider [phone] Allergies Active Allergy Reactions Criticality Noted Date [...] Active Problems Problem Noted Date Diagnosed Date Acute delirium 04/26/2025 Altered mental status 04/26/2025 Chest pain 04/26/2025 Fructose intolerance 04/26/2025 Hallucinations 04/26/2025 Hypothyroidism 04/26/2025 Mood disorder 04/26/2025 Pyelonephritis 04/26/2025 Thrombocytopenia 04/26/2025 Hypertension 04/26/2025 MCI (mild cognitive impairment) 04/26/2025 NARAYAN (obstructive sleep apnea) 04/26/2025 S/P AVR 04/26/2025 S/P TAVR (transcatheter aortic valve replacement ) 02/25/2022 Atherosclerotic heart diseas e of [place] coronary artery without angina pectoris 01/20/2022 Atrial septal defect 01/20/2022 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 01/20/2022 Diaphragmatic hernia without obstruction or gang manjit 01/20/2022 Dysphagia, unspecified 01/20/2022 Obstructive sleep apnea (adult) (pediatric) 01/02 Old myocardial infarction 01/20/2022 Presence of coronary angioplasty implant and gra ft 01/20/2022 Presence of prosthetic heart valve 01/20/2022 Unspecified asthma with status asthmaticus 01/20 Nonrheumatic aortic valve stenosis 01/19/2022 Postoperative hypothyroidism 12/08/2021 Mixed anxiety and depressive [...] Problem Noted Date Diagnosed Date Resolved Date Acute UTI (urinary tract infection) 04/26/2025 07/29/2025 ASHLEY (acute kidney injury) 04/26/2025 Encephalopathy 04/26/2025 07/29/2025 Overweight with body mass in dex (BMI) of 25 to 25.9 in adult 12/23/2021 06/24/2025 Transient ischemic attack 12/08/2021 Aortic stenosis 12/26/2014 01/20/2022 Encounters Date Type Department Care Team Description 08/28/2025 Community [facility] [address] [place] [id number] Tara Marquis, DELORES Microalbuminuria (Primary Dx); Elevated serum creatinine from Last 3 Months Immunizations Immunization Administration Dates Next Due Hep A, Adult 10/06/2018 Influenza, high-dose, quadrivalent 07/02,07/09/2022,06/25/2021,07/05,06/29/2019,07/16/2018,07/16/2018 Influenza, injectable, quadrivalent 07/13/2017 Influenza, seasonal, injectable 07/21/2010 [employer] COVID-19 Vac cine (Purple Cap) 12+ 07/09/2021 [...] 02/01/2024 1:19 PM EDT Plan of Treatment Health Maintenance Due Date Last Done Comments [facility]-Bone Density Scan 1940 [facility]-Medicare Annual Wellness (AWV) 1940 [facility]-Infant/Child/Adol SDOH Screenings 1942 Diabetes: Dental Exam 1952 [facility]- SDOH Screenings 1960 [facility]-Adult SDOH Screenings 1960 [facility]-Diabetes: Hemoglobin A1C 08/17/2018 02/17/2018 [facility]-Depression Screening 01/31/2025 02/01/2024 [id number] Vaccine ( season) 2025 08/06/2022, 04/16/2022, 07/09/2021, Additional history exists [facility]-Influenza Vaccine (#1) 06/04/202507/02, 07/09/2022, 06/25/2021, Additional history exists [facility]-DTaP,Tdap,and Td [...] this topic Medical Devices Implanted Type Area Truck Rental Manager Device Identifier Shelf Expiration Date Model / Serial / Lot Valve Kit Jay 3 Ultra Tavr 23mm - [id number] - [id number] Implanted:Qty: 1 on 01/19/2022 by Rochelle Barron MD at [facility] N/A: Heart [facility]-[id number] 02/20/2023 [id number] / [id number] / [id number] Procedures Procedure Name Priority Date/Time Associated Diagnosis [...] <6.0% Children and Adolescents <7.5% . Source: [place] [employer]. Standards of medical care in diabetes, 2017. Diabetes Care.2017:40 (suppl 1):S1-S135. . HbA1c assay performed by an ion-exchange chromatography method that is certified traceable to the DCCT. 02/17/2018 11:5 0 AM EDT 02/17/2018 12:19 PM EDT Sunita SALIN[facility] LAB BLOOD ORDERABLES Final Result SUNQUEST from Last 3 Months or Most Recently Relevant to [place] [address] [place] [address] [facility] MEDICARE Advance Directives * Full Code (Latest Code Status on File) Date Activated Date Inactivated Comments 01/19/2022 8:28 AM 01/20/2022 2:51 PM Question Answer Comments Patient has decision-making capacity? Yes Care Teams Spray Mixer Relationship Specialty Start Date End Date Srinivasan Smith MD [address] [place] [address] PCP - General Internal Medicine 01/20/22 Pita Martinez MD [address] [place] [address] Referring Physician Interventional Cardiology 12/23/21
--- OUTSIDE RECORDS SUMMARY | 2025-09-03 04:52 | XMS_ITS | Clinical Summary ---
Author Organization [facility] Address [address] [place] [address] Care Team Providers Care Manager Change Name Role Phone Provider, No Known Primary [...] e 07/15/2023 Family and Community Support Answer Rell e Recorded Help with Day-to-Day Activities Not [...] 04/16/2022, 07/09/2021, Additional history exists TDAP/TD VACCINES (2 - Td or Tdap) 10/29/2025 016, 12/07/1996 HEMOGLOBIN A1C Discontinued 01/14/2018, 10/21/2016 ZOSTER VACCINE Completed 06/18/2020, 04/2020, 06/16/2013 Pneumococcal Vaccine 50+ Completed 020, 02/04/2018, 10/30/2013 Insurance MEDICARE ADVANTAGE Care Teams Manager Change Relationship Specialty Start Date End Date Provider, No Known [facility] [place] [address] PCP - General 09/03/18
--- OUTSIDE RECORDS SUMMARY | 2025-09-03 04:52 | XMS_ITS | Data Portability ---
Author Organization [facility] Address [address] [place] [address] Care Team Providers Care Physician Underwriter Name Role Phone DANA OSULLIVAN Primary Care Provider [phone] Assessment No assessment recorded. Plan of Treatment Reminders Order Date Submit Date Provider Last Modified By Organization Details Last Modified Time Details Appointments None record ed. Lab None record ed. Referral None record ed. Procedures None record ed. Surgeries None record ed. Imaging None record ed. Medication Orders None record ed. Patient TargetsNo targets recorded. Patient InstructionsNo instructions recorded. Reason for Referral None Reported. Procedures Surgical History Date Name Laterality Status Provider Name and Address Organization Details Recorded Time 05/09/20 24 Destruction Premalignant Lesion(s) completed [facility] 05/09/2024 14:50:09 05/09/20 24 Destruction BN Lesions completed [facility] 05/09/2024 14:50:57 Imaging Results None recorded. 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 R Eye may have swelling from LN2, that is OK and will resolveFup with change or concerns Inflamed s eborrheic keratosis [id number] L82.[address], no wound careFup with change or concerns Health Concerns Section Related Observation LastModified by Organization Detai ls LastModified Time None Recorded Concern Status LastModified by Organization Details LastModified Time None Recorded Advance Directives Directive None Recorded Payers Insurance Date Sequence Insurance Name Policy Number Policy Mcnamara Covered Member ID Mcnamara Member ID Guarantor Name 05/20/2025 1 [place]MEDICARE REPLACEMENT HMO) [id number] Lakesha Roger [id number] Lakesha Roger Notes Date Note Type Note Provider Name and Address Organization Details Recorded Time 05/09/2024 text/html Annual SE, no personal hx of skin cancer I have some places on the face that are rough. [facility] JEFF [facility] [place], [address], [facility] 05/09/2024 15:08:04 OBGyn Episode No OBEpisode recorded.
[2025-09-03 04:53] LABS: INR 1.05 (0.9-1.1); Prothrombin Time 11.6 seconds (10.1-12.5)
--- NOTE | 2025-09-03 05:13 | PC.NURSE ---
Report given to Gavino DE LOS SANTOS at [facility]
[2025-09-03] MEDS: MORPHINE 4MG/ML SYRINGE 4 MG IV (05:15)
[2025-09-03 07:18] LABS: Hepatitis C Ab Qual. W/ RFX NEGATIVE (Negative)
== END 2025-09-03 05:33 | disposition other institution (70) ==
PROVIDERS: Emergency Provider Emergency Medicine; PCP Nurse Practitioner Family
DX: S72.332A Displaced oblique fracture of shaft of left femur, initial encounter for closed fracture (principal); E87.5 Hyperkalemia; E87.1 Hypo-osmolality and hyponatremia; I10 Essential (primary) hypertension; E78.5 Hyperlipidemia, unspecified; E11.9 Type 2 diabetes mellitus without complications; W01.10XA Fall on same level from slipping, tripping and stumbling with subsequent striking against unspecified object, initial encounter; Z79.84 Long term (current) use of oral hypoglycemic drugs
CPT/HCPCS: 70450; 71045; 72125; 73502; 73552; 80053; 85025; 85610; 86803; 87389; 96374; 96375; 96376; 99285; J1885; J2270

== ENCOUNTER 2025-09-24 18:13 | Emergency (ER) | payer MEDICARE, SELFPAY ==
--- OUTSIDE RECORDS SUMMARY | 2024-10-09 10:30 | XMS_ITS ---
Author Organization [facility] Address [address] [place] [address] Care Team Providers Care Bioinformatics Team Member Name Role Phone Tara Pollard Primary Care Provider [phone] Srinivasan Smith [phone] REASON FOR VISIT med ck , refills Encounters Encounter Location Date Provider Diagnosis [place] [address] [address] 10/09/2024 Tara Pollard Plan Of Treatment Next Appt Details Provider Name:Tara Garcia, 11/13/2025 11:30:00 AM, [address], [address], [place], [address], Progress Notes * KANALakeshaDOB:1940 (85 yo F)Acc No.[id number]:10/09/2024 Progress Notes Patient: Lakesha FOLEY Provider: Nae Pollard APRN :1940 A ge:84 Y S ex:Female Date:10/09/2024 Address:[facility] [id number] Subjective: * Chief Complaints: * 1 . Med ck , refills. * Medical History: Objective: * Vitals: Assessment: Plan: * Treatment: * * Electronic signature of Morro Pollard APRN on 09/24/2025 at 06:17 PM EST Sign off status: Pending * Provider: Nae Pollard APRN Date: 0 10/09/2024 Generated for Carmelita barakat/Memo/Capri on: 1 11/25/2024 06:17 PM EST
--- OUTSIDE RECORDS SUMMARY | 2025-01-06 16:30 | XMS_ITS ---
Author Organization [facility] Address [address] [place] [address] Care Team Providers Care Assembler Body Name Role Phone Atul Tara Primary Care Provider Srinivasan Smith Unavailable [phone] Migration, Provider Unavailable Unavailable Allergies Allergen (clinical drug ingredient) Drug/Non Drug Allergy documented on EMR Reaction Allergy Type Onset Date Status amoxicillin / clavulanate Augmentin Unknown Drug Allergy Active REASON FOR VISIT [facility] To [facility] Conversion Encounter Medications Medication SIG (Take, Route, Frequency, Duration) Notes Start Date End Date Status Memantine HCl 5 MG 1 tab(s) orally 2 times a day; Duration: 90 days Active Aspirin 81 MG 1 tab(s) orally once a day Active Cyproheptadine HCl 4 MG 1 tab(s) orally once a day at bedtime Active Jardiance 25 MG 1 tab(s) orally once a day (in the morning); Duration: 90 days Active Lomotil 2.5-0.025 MG 1 tab orally 3 times a day prn Active Atorvastatin Calcium 80 MG 1 tab(s) orally once a day; Duration: 90 days Active Carvedilol 12.5 MG 1 tab(s) orally 2 times a day; Duration: 90 days Active Escitalopram Oxalate 10 MG 1 tab(s) orally once a day; Duration: 90 days Active Isosorbide Mononitrate ER 30 MG 1 tab(s) orally once a day (in the morning); Duration: 90 days Active Euthyrox 137 MCG (0.137 MG) 1 TAB(S) ORALLY ONCE A DAY; Duration: 30 DAYS *Please review and pick correct strength-formulati on from Medispan options. If intended option is not shown, discontinue and re-order from Quick Search* 07/05/2024 Active Multivitamin VITAMIN B COMPLEX WITH C AND FOLIC ACID 1 TAB(S) ORALLY ONCE A DAY *Please review and pick correct strength-formulati on from Medispan options. If intended option is not shown, discontinue and re-order from Quick Search* Active Fish Oil 1000 MG 1 cap(s) orally once a day Active Encounters Encounter Location Date Provider Diagnosis [facility] [address] [place] [address] 01/06/2025 Provider Migration Plan Of Treatment Next Appt Details Provider Name:Tara Garcia, 11/13/2025 11:30:00 AM, [address], [address], [place], [place], [address], Progress Notes * Lakesha ROGERDOB:1940 (85 yo F)Acc No.[id number]:01/06/2025 Patient: Lakesha FOLEY Provider: Carlo montes Migration :1940 A ge:84 Y S ex:Female Date:01/06/2025 Address:[address] [place] [address] [id number] Pcp:Tara Pollard Subjective: * Chief Complaints: * [facility] * Medical History: * Medications: T aking Cyproheptadine HCl 4 MG Tablet 1 tab(s) orally once a day at bedtime , Taking Lomotil 2.5-0.025 MG Tablet 1 tab orally 3 times a day , Notes to Pharmacist: prn, Taking Aspirin 81 MG Tablet Delayed Release 1 tab(s) orally once a day , Taking Fish Oil 1000 MG Capsule 1 cap(s) orally once a day , Taking Multivitamin VITAMIN B COMPLEX WITH C AND FOLIC ACID TABLET 1 TAB(S) ORALLY ONCE A DAY , Notes to Pharmacist: *Please review and pick correct strength-formulation from Medispan options. If intended option is not shown, discontinue and re-order from Quick Search*, Taking Atorvastatin Calcium 80 MG Tablet 1 tab(s) orally once a day , Taking Carvedilol 12.5 MG Tablet 1 tab(s) orally 2 times a day , Taking Isosorbide Mononitrate ER 30 MG Tablet Extended Release 24 Hour 1 tab(s) orally once a day (in the morning) , Taking Euthyrox 137 MCG (0.137 MG) TABLET 1 TAB(S) ORALLY ONCE A DAY , Notes to Pharmacist: *Please review and pick correct strength-formulation from Medispan options. If intended option is not shown, discontinue and re-order from Quick Search*, Taking Escitalopram Oxalate 10 MG Tablet 1 tab(s) orally once a day , Taking Memantine HCl 5 MG Tablet 1 tab(s) orally 2 times a day , Taking Jardiance 25 MG Tablet 1 tab(s) orally once a day (in the morning) * Allergies: A ugmentin: Side Effects. Objective: * Vitals: Assessment: Plan: * Treatment: * * Electronic signature of Avery gusman Migration on 09/24/2025 at 06:19 PM EST Sign off status: Pending * Provider: Carlo montes Migration Date: 0 01/06/2025 Generated for Carmelita barakat/Memo/Capri on: 1 11/25/2024 06:19 PM EST
--- OUTSIDE RECORDS SUMMARY | 2025-08-24 07:00 | XMS_ITS ---
Author Organization [facility] Address [address] [place], [place] [address] Care Team Providers Care Telecommunications Field Technician Name Role Phone AzarTara Carrasquillo Primary Care Provider [phone] Srinivasan Smith Unavailable [phone] Allergies Allergen (clinical drug ingredient) Drug/Non Drug Allergy documented on EMR Reaction Allergy Type Onset Date Status amoxicillin / clavulanate Augmentin Unknown Drug Allergy Active Results Component Value Reference Range Notes COMPREHENSIVE METABOLIC PANE L (19431) Reviewed date:08/28/2025 12:40:08 PM Interpretation: Performing Lab:CB, [facility] [id number] [facility], [facility] [id number] Neal Caraballo Notes/Report: NON-FASTING; NON-FASTING; NON-FASTING GLUCOSE 127 65-99 mg/dL Fasting reference interval For someone without known diabetes, a glucose value >125 mg/dL indicates that they may have diabetes and this should be confirmed with a follow-up test. UREA NITROGEN (BUN) 28 7-25 mg/dL CREATININE 2.17 0.60-0.95 mg/dL EGFR 22 > OR = 60 mL/min/1.73m2 BUN/CREATININE RATIO 13 6-22 (calc) SODIUM 141 135-146 mmol/L POTASSIUM 4.5 3.5-5.3 mmol/L CHLORIDE 105 98-110 mmol/L CARBON DIOXIDE 27 20-32 mmol/L CALCIUM 9.5 8.6-10.4 mg/dL PROTEIN, TOTAL 7.0 6.1-8.1 g/dL ALBUMIN 4.3 3.6-5.1 g/dL GLOBULIN 2.7 1.9-3.7 g/dL (calc) ALBUMIN/GLOBULIN RATIO 1.6 1.0-2.5 (calc) BILIRUBIN, TOTAL 0.4 0.2-1.2 mg/dL ALKALINE PHOSPHATASE 52 37-153 U/L AST 19 10-35 U/L ALT 10 6-29 U/L CBC (INCLUDES DIFF/PLT) (639 9) Reviewed date:08/28/2025 12:40:41 PM Interpretation: Performing Lab:RANDY, [facility] [id number], [id number] Neal Caraballo Notes/Report: NON-FASTING; NON-FASTING; NON-FASTING WHITE BLOOD CELL COUNT 5.0 3.8-10.8 Thousand/ uL RED BLOOD CELL COUNT 3.94 3.80-5.10 Million/uL HEMOGLOBIN 12.1 11.7-15.5 g/dL HEMATOCRIT 36.7 35.0-45.0 % MCV 93.1 80.0-100.0 fL MCH 30.7 27.0-33.0 pg MCHC 33.0 32.0-36.0 g/dL For adults, a slight decrease in the calculated MCHC value (in the range of 30 to 32 g/dL) is most likely not clinically significant; however, it should be interpreted with caution in correlation with other red cell parameters and the patient's clinical condition. RDW 13.7 11.0-15.0 % PLATELET COUNT 105 140-400 Thousand/uL MPV 12.8 7.5-12.5 fL ABSOLUTE NEUTROPHILS 3720 5114-3246 cells/uL ABSOLUTE LYMPHOCYTES 395 242-9288 cells/uL ABSOLUTE MONOCYTES 370 200-950 cells/uL ABSOLUTE EOSINOPHILS 60 15-500 cells/uL ABSOLUTE BASOPHILS 40 0-200 cells/uL NEUTROPHILS 74.4 LYMPHOCYTES 16.2 MONOCYTES 7.4 EOSINOPHILS 1.2 BASOPHILS 0.8 HEMOGLOBIN A1c (496) Reviewed date:08/28/2025 12:40:31 PM Interpretation: Performing Lab:RANDY, [facility] [address], [place] Neal Caraballo Notes/Report: NON-FASTING; NON-FASTING; NON-FASTING HEMOGLOBIN A1c 6.0 <5.7 % For someone without known diabetes, a hemoglobin A1c value between 5.7% and 6.4% is consistent with prediabetes and should be confirmed with a follow-up test. For someone with known diabetes, a value <7% indicates that their diabetes is well controlled. A1c targets should be individualized based on duration of diabetes, age, comorbid conditions, and other considerations. This assay result is consistent with an increased risk of diabetes. Currently, no consensus exists regarding use of hemoglobin A1c for diagnosis of diabetes for children. REASON FOR VISIT ck, short term memory issues Medications Medication SIG (Take, Route, Frequency, Duration) Notes Start Date End Date Status Fish Oil 1000 MG 1 cap(s) orally once a day Active Multivitamin VITAMIN B COMPLEX WITH C AND FOLIC ACID 1 TAB(S) ORALLY ONCE A DAY *Please review and pick correct strength-formulati on from Zesty options. If intended option is not shown, discontinue and re-order from Quick Search* Active Carvedilol 12.5 MG 1 tab(s) orally 2 times a day; Duration: 90 days Active Atorvastatin Calcium 80 MG 1 tab(s) orally once a day; Duration: 90 days Active Isosorbide Mononitrate ER 30 MG 1 tab(s) orally once a day (in the morning); Duration: 90 days Active Aspirin 81 MG 1 tab(s) orally once a day Active Memantine HCl 5 MG 1 tab(s) orally 2 times a day; Duration: 90 days Active Lomotil 2.5-0.025 MG 1 tab orally 3 times a day prn Active Cyproheptadine HCl 4 MG 1 tab(s) orally once a day at bedtime Active Jardiance 25 MG 1 tab(s) orally once a day (in the morning); Duration: 90 days Active Euthyrox 137 MCG (0.137 MG) 1 TAB(S) ORALLY ONCE A DAY; Duration: 30 DAYS *Please review and pick correct strength-formulati on from Zesty options. If intended option is not shown, discontinue and re-order from Quick Search* 07/05/2024 Active Escitalopram Oxalate 10 MG 1 tab(s) orally once a day; Duration: 90 days Active Vital Signs Temperature 98.2 degrees Fahrenheit 08/24/20 25 Blood pressure systolic 115 mm Hg 08/24/20 25 Blood pressure diastolic 62 mm Hg 025 Heart Rate 64 /min 08/24/2025 Height 5 ft 2 in in 08/24/2025 Weight 102 lbs 08/24/2025 BMI 18.65 kg/m2 08/24/2025 Encounters Encounter Location Date Provider Diagnosis Maida Gutiérrez [facility] [address] [address] 08/24/2025 Tara Pollard Ischemic heart disea se I25.9 ; Essential hypertension I10 ; Type 2 diabetes mellitus with other specified complication E11.69 ; Aortic valve, bicuspid Q23.1 ; Memory loss R41.3 ; Postoperative hypothyroidism E89.0 ; Hyperlipidemia, unspecified E78.5 ; Depression with anxiety F41.8 ; Thrombocytopenia D69.6 ; NARAYAN (obstructive sleep apnea) G47.33 ; Irritable bowel syndrome with diarrhea K58.0 ; Underweight R63.6 and Body mass index [BMI] 19.9 or less, adult Z68.1 Assessments Encounter Date Diagnosis (ICD Code) Assessment Notes Treatment Notes Treatment Clinical Notes Section Notes 08/24/2025 Ischemic heart disease (ICD-10 - I25.9) No acute angina 08/24/2025 Essential hypertension (ICD-10 - I10) Blood pressure at goal today. 08/24/2025 Type 2 diabetes mellitus with other specified complication (ICD-10 - E11.69) A1c at prediabetes level on previous labs. On Jardiance, tolerating well. Continue diabetic diet, supportive footwear, yearly eye exams. 08/24/2025 Aortic valve, bicuspid (ICD-10 - Q23.1) Follows with [facility]. No acute CV symptoms 08/24/2025 Memory loss (ICD-10 - R41.3) Seems to have a little more difficulty recalling recent events however major stressor with move, husbands health condition. Continue Namenda. Keep FU with Dr Matta. FU in 2 months or sooner prn 08/24/2025 Postoperative hypothyroidism (ICD-10 - E89.0) TSH stable. Continue synthroid 08/24/2025 Hyperlipidemia, unspecified (ICD-10 - E78.5) Tolerating statin well, no changes. LDL with excellent control. 08/24/2025 Depression with anxiety (ICD-10 - F41.8) Well controlled on current regimen. No changes made 08/24/2025 Thrombocytopenia (ICD-10 - D69.6) Following with hematology. Has declined bone marrow biopsy for definitive diagnosis at this time due to stability of platelets. Will check CBC to confirm today 08/24/2025 NARAYAN (obstructive sleep apnea) (ICD-10 - G47.33) Keep FU with Dr. Matta for further recommenations 08/24/2025 Irritable bowel syndrome with diarrhea (ICD-10 - K58.0) No changes made today. Continue lomotil. Keep Fu with Dr. Licona 08/24/2025 Underweight (ICD-10 - R63.6) 08/24/2025 Body mass index [BMI] 19.9 or less, adult (ICD-10 - Z68.1) Stable. Discussed importance of eating protein with every meal. Recommend boost or ensure daily and remeron as above. Plan Of Treatment Treatment Notes Assessment Notes Ischemic heart disease No acute angina Essential hypertension Blood pressure at goal today. Type 2 diabetes mellitus wit h other specified complication A1c at prediabetes level on previous labs. On Jardiance, tolerating well. Continue diabetic diet, supportive footwear, yearly eye exams. Aortic valve, bicuspid Follows with [facility]. No acute CV symptoms Memory loss Seems to have a charly le more difficulty recalling recent events however major stressor with move, husbands health condition. Continue Namenda. Keep FU with Dr Matta. FU in 2 months or sooner prn Postoperative hypothyroidism TSH stable. Continue synthroid Hyperlipidemia, unspecified Tolerating s tatin well, no changes. LDL with excellent control. Depression with anxiety Well controlled on current regimen. No changes made Thrombocytopenia Following with hemat ology. Has declined bone marrow biopsy for definitive diagnosis at this time due to stability of platelets. Will check CBC to confirm today NARAYAN (obstructive sleep apnea) Keep FU wi th Dr. Matta for further recommenations Irritable bowel syndrome with diarrhea N o changes made today. Continue lomotil. Keep Fu with Dr. Licona Body mass index [BMI] 19.9 or less, adul t Stable. Discussed importance of eating protein with every meal. Recommend boost or ensure daily and remeron as above. Pending Test Test Name Order Date TSH (839) 08/24/2025 Next Appt Details Follow Up: 2 Months, Reason: Provider Name:Tara Garcia 11/13/2025 11:30:00 AM, [address], [address], [place], [address], Progress Notes * Lakesha ROGERDOB:1940 (85 yo F)Acc No.[id number]:08/24/2025 Progress Notes Patient: Lakesha FOLEY Provider: Nae Pollard, DELORES :1940 A ge:85 Y S ex:Female Date:08/24/2025 Address:[address] [place] [address] [address], [id number] Subjective: * Chief Complaints: * 1 . Ck. 2. Short term memory issues. * HPI: G eneral HPI: 85-year-old white female with a significant history of PFO, ischemic heart disease, bicuspid aortic valve with TAVR 01/23, hypertension, NARAYAN, depression, anxiety Roberts's esophagus, large hiatal hernia repair, IBS, recurrent UTI's and diabetes presents for routine FU on chronic conditions. T olerating medications well with no adverse effects. NARAYAN- Has no been wearing CPAP. Recenlty moved from [place] to [place]. Plans to start wearing it again soon. Insomnia well controlled on remeron which was started due to weight loss. Weight is stable. Mood is stable on Lexapro. Anxiety increased with move. Requests something for PRN use. 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 Followed by Dr. Bernard for her aortic valve disease, TAVR 01/2022. SOA with exertion, at baseline. No LE edema or orthopnea. Denies any chest pain or palpitations. Follows with Dr. Matta for memory loss and NARAYAN.. On Namenda, tolerating well. Feels like memory issues are getting worse. Thrombocytopenia- stable, follows with Dr. Edmond. Bone marrow biopsy recommended, patient declined. Due for labs today. Hypothyroidism- on Synthroid, due for TSH check. HLD- on statin, denies myalgias. LDL with excellent control. Recurrent UTI's- referred to urology, had to cancel due to in family. Denies urinary symptoms today. I BS with diarrhea-following with Dr. Licona, continues to struggle with diarrhea at times.. Colonoscopy 2019, no further recommended. * ROS: R ESPIRATORY: Reviewed, No Symptoms Reported: Y es. C ARDIOLOGY: no D izziness. n o C hest pain. n o P alpitations. n o L eg edema. S hortness of breath y es, w orse with exertion, at baseline. C ONSTITUTIONAL: no L oss of appetite. n o F ever. D ERMATOLOGY: no R risa. G ASTROENTEROLOGY: no N ausea. n o V omiting. n o D iarrhea.?no C onstipation. n o B lood in stool. H EMATOLOGY/LYMPH: no S wollen glands. n o E asy bruising. ? N EUROLOGY: no H eadache. n o T ingling numbness. M tuan loss y es. P SYCHOLOGY: Depression y es, w ell controlled. n o S leep disturbances. n o S uicidal ideation. A nxiety y es, w ell controlled. U ROLOGY: Dysuria n o. n o D ifficulty urinating. n o?Blood in urine. * Medical History: A sthma, Allergies, NIDDM, Hyperlipidemia, Hypertension, Bicuspid aortic valve, CAD, Subarachnoid hemorrhage, Hypothyriodism, PFO, Roberts's esophagus, C-scope 10/22 with no polyps - extensive diverticulosis, Sucrase- Isomaltase Def, IBS. * Surgical History: T otal Abdominal Hysterectomy 1994, Thyroidectomy 1961, Left Tibial Plateau Fx ORIF 2013, Colonoscopy 2018, Bilateral Cataracts 2013, Heart stents x 2 - [facility] 04/2016, hernia repair 03/2018, TAVR 01/2022. * Hospitalization/Major Diagno stic Procedure: C polina Chamberlain (Fracture rehab) 10/17, Subarachnoid hemorrhage 03/11. * Family History: F ather: . M other: , Heart issues, Dementia , vitamin b12 def.. P aternal Grand Father: . P aternal Grand Mother: . M aternal Grand Father: . M aternal Grand Mother: . P aternal uncle: . P aternal aunt: . S iblings: alive, 2 sisters has diabetes. Liudmila arrington: alive. 1 brother(s) , 5 sister(s) - healthy. 1 son(s) , 1 daughter(s) - healthy. . * Social History: S moking A re you a:: former smoker , How long has it been since you last smoked?: > 10 years. R ecreational drug use: no. Exercise: no. Home smoke detector use: yes. Caffeine: yes, frequency:1 cup of coffee per day. Living Will: Yes. Alcohol: socially, 1-2 cocktails per week. Sexually active: no. Travel outside [place]: no. 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 Lives with spouse who is blind. * Medications: T aking Cyproheptadine HCl 4 [...] once a day (in the morning) , Medication List reviewed and reconciled with the patient * Allergies: A ugmentin: Side Effects. Objective: * Vitals: N urse: dw, Pain: 0, Temp: 98.2, RR: 20, HR: 64, BP: 115/62, Ht: 5 ft 2 in, Wt: 102, BMI:18.65. * Examination: G eneral Examination: General P leasant and Cooperative, NAD on RA,. Chest: n ormal shape and expansion. Heart: Regular Rate and rhythm, 2/6 holosystolic murmur loudest at right sternal border. Lungs: L CTAB, No wheezes, crackles or rhonchi, Good air movement,. Abdomen: S oft, NTND, BSNA, No organomegaly or peritoneal signs.. Neurologic Exam: A lert and oriented x 3, 3/3 5 minute recall, M oves All 4 Extremities Equally,. Skin: w ithout acute rashes. Peripheral pulses: n ormal (2+) bilaterally. neck s upple,, no thyromegaly,, no lymphadenopathy, bilateral bruits radiates from murmur. Psych N ormal Mood/Affect. Assessment: * Assessment: 1. I schemic heart disease - I25.9 (Primary) 2 . E ssential hypertension - I10 3 . T ype 2 diabetes mellitus with other specified complication - E11.69? 4. A ortic valve, bicuspid - Q23.1 5 . M tuan loss - R41.3 6. P ostoperative hypothyroidism - E89.0 7 . H yperlipidemia, unspecified - E78.5 8 . D epression with anxiety - F41.8 9 .?Thrombocytopenia - D69.6 1 0. O SA (obstructive sleep apnea) - G47.33 & #160; 1 1. I rritable bowel syndrome with diarrhea - K58.0 1 2. U nderweight - R63.6 1 3. B vern mass index [BMI] 19.9 or less, adult - Z68.1 ? Plan: * Treatment: 2. E ssential hypertension L AB: COMPREHENSIVE METABOLIC PANEL (11922) Value Reference Range G LUCOSE 127 H 65-99 - mg/dL * U RITIKA NITROGEN (BUN) 28 H 7-25 - mg/dL * C REATININE 2.17 H 0.60-0.95 - mg/dL * B UN/CREATININE RATIO 13 6-22 - (calc) * S ODIUM 141 135-146 - mmol/L * P OTASSIUM 4.5 3.5-5.3 - mmol/L * C HLORIDE 105 98-110 - mmol/L * C ARBON DIOXIDE 27 20-32 - mmol/L * C ALCIUM 9.5 8.6-10.4 - mg/dL * P ROTEIN, TOTAL 7.0 6.1-8.1 - g/dL * A LBUMIN 4.3 3.6-5.1 - g/dL * G LOBULIN 2.7 1.9-3.7 - g/dL (calc ) * A LBUMIN/GLOBULIN RATIO 1.6 1.0-2.5 - (calc) * B ILIRUBIN, TOTAL 0.4 0.2-1.2 - mg/dL * A LKALINE PHOSPHATASE 52 37-153 - U/L * A ST 19 10-35 - U/L * A LT 10 6-29 - U/L * E GFR 22 L > OR = 60 - mL/min/1 .73m2 * Tara Pollard 08/27/20 11:26:14 AM EST > kidney function has declined some, otherwise labs look good at baseline, increase water intake 6 glasses a day, no nsaids, refer to [facility] nephrology Jayro Vinson R 08/28/2025 10:21:31 AM EST > lvm Karel Sutherlin R 08/28/2025 12:01:55 PM EST > pt notified. can you referEmma Lazcano 08/28/2025 12:39:37 PM EST > placing referralThis lab was reviewed by Emma Lazcano on 08/28/2025 at 12:40 PM EST Notes: Blood pressure at goal today. ??3.?Type 2 diabetes mellitus with other specified complication?LAB: COMPREHENSIVE METABOLIC PANEL (80959)* Value Reference Range G LUCOSE 127 H 65-99 - mg/dL * U RITIKA NITROGEN (BUN) 28 H 7-25 - mg/dL * C REATININE 2.17 H 0.60-0.95 - mg/dL * B UN/CREATININE RATIO 13 6-22 - (calc) * S ODIUM 141 135-146 - mmol/L * P OTASSIUM 4.5 3.5-5.3 - mmol/L * C HLORIDE 105 98-110 - mmol/L * C ARBON DIOXIDE 27 20-32 - mmol/L * C ALCIUM 9.5 8.6-10.4 - mg/dL * P ROTEIN, TOTAL 7.0 6.1-8.1 - g/dL * A LBUMIN 4.3 3.6-5.1 - g/dL * G LOBULIN 2.7 1.9-3.7 - g/dL (calc ) * A LBUMIN/GLOBULIN RATIO 1.6 1.0-2.5 - (calc) * B ILIRUBIN, TOTAL 0.4 0.2-1.2 - mg/dL * A LKALINE PHOSPHATASE 52 37-153 - U/L * A ST 19 10-35 - U/L * A LT 10 6-29 - U/L * E GFR 22 L > OR = 60 - mL/min/1 .73m2 * Tara Pollard 08/27/20 11:26:14 AM EST > kidney function has declined some, otherwise labs look good at baseline, increase water intake 6 glasses a day, no nsaids, refer to [facility] nephrology [facility] R 08/28/2025 10:21:31 AM EST > [facility] R 08/28/2025 12:01:55 PM EST > pt notified. can you Emma Jacobs 08/28/2025 12:39:37 PM EST > placing referralThis lab was reviewed by Emma Lazcano on 08/28/2025 at 12:40 PM EST ?LAB: HEMOGLOBIN A1c (496)* Value Reference Range H EMOGLOBIN A1c 6.0 H <5.7 - % * Tara Pollard 08/27/20 11:26:14 AM EST > kidney function has declined some, otherwise labs look good at baseline, increase water intake 6 glasses a day, no nsaids, refer to [facility] nephrology [facility] R 08/28/2025 10:21:31 AM EST > lvm [facility] 08/28/2025 12:01:55 PM EST > pt notified. can you referThis lab was reviewed by Emma Lazcano on 08/28/2025 at 12:40 PM EST Notes: A1c at prediabetes level on previous labs. On Jardiance, tolerating well. Continue diabetic diet, supportive footwear, yearly eye exams.??4.?Aortic valve, bicuspid? Notes: Follows with [facility]. No acute CV symptoms??5.?Memory loss? Notes: Seems to have a little more difficulty recalling recent events however major stressor with move, husbands health condition. Continue Namenda. Keep FU with Dr Matta. FU in 2 months or sooner prn??6.?Postoperative hypothyroidism?LAB: TSH (899) Notes: TSH stable. Continue synthroid??7.?Hyperlipidemia, unspecified?LAB: COMPREHENSIVE METABOLIC PANEL (73787)* Value Reference Range G LUCOSE 127 H 65-99 - mg/dL * U RITIKA NITROGEN (BUN) 28 H 7-25 - mg/dL * C REATININE 2.17 H 0.60-0.95 - mg/dL * B UN/CREATININE RATIO 13 6-22 - (calc) * S ODIUM 141 135-146 - mmol/L * P OTASSIUM 4.5 3.5-5.3 - mmol/L * C HLORIDE 105 98-110 - mmol/L * C ARBON DIOXIDE 27 20-32 - mmol/L * C ALCIUM 9.5 8.6-10.4 - mg/dL * P ROTEIN, TOTAL 7.0 6.1-8.1 - g/dL * A LBUMIN 4.3 3.6-5.1 - g/dL * G LOBULIN 2.7 1.9-3.7 - g/dL (calc ) * A LBUMIN/GLOBULIN RATIO 1.6 1.0-2.5 - (calc) * B ILIRUBIN, TOTAL 0.4 0.2-1.2 - mg/dL * A LKALINE PHOSPHATASE 52 37-153 - U/L * A ST 19 10-35 - U/L * A LT 10 6-29 - U/L * E GFR 22 L > OR = 60 - mL/min/1 .73m2 * Tara Pollard 08/27/20 11:26:14 AM EST > kidney function has declined some, otherwise labs look good at baseline, increase water intake 6 glasses a day, no nsaids, refer to [facility] nephrology Jayro Vinson R 08/28/2025 10:21:31 AM EST > lvm Jayro Vinson R 08/28/2025 12:01:55 PM EST > pt notified. can you referEmma Lazcano 08/28/2025 12:39:37 PM EST > placing referralThis lab was reviewed by Emma Lazcano on 08/28/2025 at 12:40 PM EST Notes: Tolerating statin well, no changes. LDL with excellent control. ?? 8.?Depression with anxiety? Notes: Well controlled on current regimen. No changes made??9.?Thrombocytopenia?LAB: CBC (INCLUDES DIFF/PLT) (7719)* Value Reference Range W BRYAN BLOOD CELL COUNT 5.0 3.8-10.8 - Thousan d/uL * R ED BLOOD CELL COUNT 3.94 3.80-5.10 - Million/ uL * H EMOGLOBIN 12.1 11.7-15.5 - g/dL * H EMATOCRIT 36.7 35.0-45.0 - % * M CV 93.1 80.0-100.0 - fL * M CH 30.7 27.0-33.0 - pg * M CHC 33.0 32.0-36.0 - g/dL * R DW 13.7 11.0-15.0 - % * P LATELET COUNT 105 L 140-400 - Thousand/u L * N EUTROPHILS 74.4 - % * A BSOLUTE NEUTROPHILS 3720 0958-0993 - cells/uL * L YMPHOCYTES 16.2 - % * A BSOLUTE LYMPHOCYTES 810 L 850-3900 - cells/uL * M ONOCYTES 7.4 - % * A BSOLUTE MONOCYTES 370 200-950 - cells/uL * E OSINOPHILS 1.2 - % * A BSOLUTE EOSINOPHILS 60 15-500 - cells/uL * B ASOPHILS 0.8 - % * A BSOLUTE BASOPHILS 40 0-200 - cells/uL * M PV 12.8 H 7.5-12.5 - fL * Tara Pollard 08/27/20 11:26:14 AM EST > kidney function has declined some, otherwise labs look good at baseline, increase water intake 6 glasses a day, no nsaids, refer to [facility] nephrology Jayro Vinson R 08/28/2025 10:21:31 AM EST > lvm Jayro Vinson R 08/28/2025 12:01:55 PM EST > pt notified. can you referThis lab was reviewed by Emma Lazcano on 08/28/2025 at 12:40 PM EST Notes: Following with hematology. Has declined bone marrow biopsy for definitive diagnosis at this time due to stability of platelets. Will check CBC to confirm today??10.?NARAYAN (obstructive sleep apnea)? Notes: Keep FU with Dr. Matta for further recommenations??11.?Irritable bowel syndrome with diarrhea? Notes: No changes made today. Continue lomotil. Keep Fu with Dr. Licona?? 12.?Body mass index [BMI] 19.9 or less, adult? Notes: Stable. Discussed importance of eating protein with every meal. Recommend boost or ensure daily and remeron as above. ?? * Follow Up: 2 Months * * Sign off status: Completed true * Provider: Nae Pollard APRN Date: 10/24/2024 Generated for Carmelita barakat/Memo/Capri on: 11/25/2024 06:18 PM EST History and Physical Notes * HPI (History of Present Illness) Category Sub-Category Detail Notes Category Not es General HPI 85-year-old i te female with a significant history of PFO, ischemic heart disease, bicuspid aortic valve with TAVR 01/23, hypertension, NARAYAN, depression, anxiety Roberts's esophagus, large hiatal hernia repair, IBS, recurrent UTI's and diabetes presents for routine FU on chronic conditions. Tolerating medications well with no adverse effects. NARAYAN- Has no been wearing CPAP. [facility] moved from [place] to [place]. Plans to start wearing it again soon. Insomnia well controlled on remeron which was started due to weight loss. Weight is stable. Mood is stable on Lexapro. Anxiety increased with move. Requests something for PRN use. 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 Followed by Dr. Bernard for her aortic valve disease, TAVR 01/2022. SOA with exertion, at baseline. No LE edema or orthopnea. Denies any chest pain or palpitations. Follows with Dr. Matta for memory loss and NARAYAN.. On Namenda, tolerating well. Feels like memory issues are getting worse. Thrombocytopenia- stable, follows with Dr. Edmond. Bone marrow biopsy recommended, patient declined. Due for labs today. Hypothyroidism- on Synthroid, due for TSH check. HLD- on statin, denies myalgias. LDL with excellent control. Recurrent UTI's- referred to urology, had to cancel due to in family. Denies urinary symptoms today. IBS with diarrhea-following with Dr. Licona, continues to struggle with diarrhea at times.. Colonoscopy 2018, no further recommended. Examination Category Sub-Category Detail Notes Category Not es General Examination HEENT: Heart: Regular Rate and rhy thm, 2/6 holosystolic murmur loudest at right sternal border Lungs: LCTAB, No wheezes, c rackles or rhonchi, Good air movement, Abdomen: Soft, NTND, BSNA, No organomegaly or peritoneal signs. Skin: without acute rashes Neurologic Exam: Alert and oriented x 3, 3/3 5 minute recall, Moves All 4 Extremities Equally, Peripheral pulses: normal (2+) bilatera lly Chest: normal shape and exp ansion neck supple,, no thyromeg aislinn,, no lymphadenopathy, bilateral bruits radiates from murmur General Pleasant and Coopera tive, NAD on RA, Psych Normal Mood/Affect
--- OUTSIDE RECORDS SUMMARY | 2025-09-03 06:27 | XMS_ITS | Encounter Summary ---
Author Organization [facility] Address [address] [place] [address] Care Team Providers Care Spooler Operator Automatic Name Role Phone Pita Martinez MD Unavailable [phone] Srinivasan Smith MD Primary Care Provider [phone] Reason for Referral * Consultation (Routine) - Authorized Specialty Diagnoses / Procedures Referred By Contac t Referred To Contact Nephrology Diagnoses Age-related osteoporosis with current pathological fracture, initial encounter Terrence Thomason APRN [address] [address] Phone: tel: fax: [facility] [address] [facility], [address] [place] [address] Phone: tel: fax: Referral ID Status Reason Start Date Expiration Date Visits Requested Visits Authorized [id number] Authorized Specialty Services Required 09/05/2025 03/07/2027 1 1 Scheduling Instructions Please schedule with [facility] Please schedule DXA either in [place] clinic when she comes for ortho visit or in bone clinic same day as visit with bone clinic provider Please coordinate appointments with orthopedic appointments Reason for Visit * Reason Comments Fall * Auth/Cert (Routine) Specialty Diagnoses / Procedures Referred By Contac t Referred To Contact Diagnoses Displaced intertrochanteric fracture of left femur, initial encounter for closed fracture fall - left hip fx Emani Cunningham DO [address] [place] [address] Phone: tel: fax: PAVA 9 T2 [facility] [address] [place] [address] Phone: tel: Referral ID Status Reason Start Date Expiration Date Visits Re quested Visits Authorized [id number] 1 1 Encounter Details Date Type Department Care Team (Latest Contact Info) Description 09/03/2025 6:27 AM EST - 09/07/2025 11:37 AM EST Hospital Encounter [facility] 9 T2 [facility] [address] [place] [id number] Dominick Curtis MD [address] [place] [address] Emani Cunningham DO [address] [place] [address] Renu Barros MD [address] [place] [address] Displaced intertrochanteric fracture of left femur, initial encounter for closed fracture (Primary Dx); Closed displaced intertrochanteric fracture of left femur, initial encounter; ASHLEY (acute kidney injury); Fall, initial encounter; Hyperkalemia; Anemia, unspecified type; Age-related osteoporosis with current pathological fracture, initial encounter Discharge Disposition: Assisted Facility Social History Tobacco Use Types Packs/Day Years Used Date Smoking Tobacco: Former Cigarettes 0.3 30 1 965 - 1994 Passive Smoke Exposure: Past Smokeless Tobacco: Never Tobacco Cessation:Counseling Given: Not Answered Alcohol Use Standard Drinks/Week Comments Not Currently 0 (1 standard drink = 0.6 oz pur e alcohol) Social, every blue hearn PHQ-2 Answer Date Recorded Patient Health Questionnaire-2 Score 0 02/01/2024 Humiliation, Afraid, Rape, and Kick questionnair e Answer Date Recorded Within the last year, have y ou been afraid of your partner or ex-partner? No 09/05/2025 Within the last year, have y ou been humiliated or emotionally abused in other ways by your partner or ex-partner? No Within the last year, have y ou been kicked, hit, slapped, or otherwise physically hurt by your partner or ex-partner? No 09/05/2025 Within the last year, have y ou been raped or forced to have any kind of sexual activity by your partner or ex-partner? No 09/05/2025 Social Connection and Isolation Panel Answer Date Recorded Frequency of Communication with Friends and Fami ly Not on file 09/05/2025 Frequency of Social Gatherings with Friends and Family Not on file 09/05/2025 Attends Mandaen Services Not on file 09/05 Active Member of Clubs or Organizations Not on f ile 09/05/2025 Attends Club or Organization Meetings Not on bala e 09/05/2025 Are you , , di vorced, , never , or living with a partner? 09/05/2025 AUDIT-C Answer Date Recorded Q1: How often do you have a drink containing alcohol? Never 09/05/2025 Q2: How many drinks containi ng alcohol do you have on a typical day when you are drinking? Patient does not drink Q3: How often do you have si x or more drinks on one occasion? Never 09/05/2025 Hunger Vital Sign Answer Date Recorded Within the past 12 months, y ou worried that your food would run out before you got the money to buy more. Never true 09/05/20 25 Within the past 12 months, t he food you bought just didn't last and you didn't have money to get more. Never true 09/05/2025 PRAPARE - Transportation Answer Date Re corded In the past 12 months, has l ack of transportation kept you from medical appointments or from getting medications? No 12/2024 In the past 12 months, has l ack of transportation kept you from meetings, work, or from getting things needed for daily living? No 09/05/2025 Housing Stability Vital Sign Answer Rell e Recorded In the last 12 months, was t here a time when you were not able to pay the mortgage or rent on time? No 09/05/2025 In the past 12 months, how m any times have you moved where you were living? 1 09/05/2025 At any time in the past 12 m [facility], were you homeless or living in a alf (including now)? No 09/05/2025 [facility] Utilities Answer Date Recorded In the past 12 months has th e electric, gas, oil, or water company threatened to shut off services in your home? No 09/05/2025 CAGE ASSESSMENT Answer Date Recorded Cage unable to access Not on file 09/03/2025 Maximum number of drinks you had on a given occasion in the last month? 3 drinks 09/03/2025 How many alcoholic Beverages do you typically drink in a week? 0 - 7 per week 09/03/2025 Have you ever felt you should CUT down on your d rinking? 0 09/03/2025 Have you been ANNOYED by peo ple criticizing your drinking? 0 09/03/2025 Have you felt GUILTY about your drinking? 0 09/03/2025 Have you had a drink first t rei in the morning (EYE-LABEL FOLDER) to steady your nerves or to get rid of a hangover? 0 09/03/2025 CAGE Questionnaire Score 0 025 Comments No Sex and Gender Information Value Date Recorded Sex Assigned at Female 11/12/2021 2:47 PM EST Legal Sex Female 7:27 PM EDT Gender Identity Female 11/12/2021 2:47 PM EST Sexual Orientation Not on file documented as of this encounter Last Filed Vital Signs Vital Sign Reading Time Taken Comments Blood Pressure 115/62 09/07/2025 7:41 AM EST Pulse 59 09/07/2025 7:41 AM EST Temperature 36.9 C (98.4 F) 09/07/2025 7:41 AM EST Respiratory Rate 16 09/07/2025 7:41 AM EST Oxygen Saturation 97% 09/07/2025 7:41 AM EST Inhaled Oxygen Concentration - - Weight 50.5 kg (111 lb 5.3 oz) 09/03/2025 8:21 A M EST Height 157.5 cm (5' 2 ) 09/03/2025 9:49 AM EST Body Mass Index 20.36 09/03/2025 8:21 AM EST documented in this encounter Functional Status * Question Answer Date of Assessment Author Precautions Fall risk;[facility] surveillance 09/07/2025 7:00 AM Marley Mejia RN * AUDIT-C Score Answer Date of Assessment Author 0 09/05/2025 11:29 AM Adele Carpenter RN * Question Answer Date of Assessment Author Q1: How often do you have a drink containing alcohol? Never 09/05/2025 11:29 AM Adele Carpenter RN Q2: How many drinks containing alcohol do you have on a typical day when you are drinking? Patient does not drink 09/05/2025 11:29 AM Adele Carpenter RN Q3: How often do you have six or more drinks on one occasion? Never 09/05/2025 11:29 AM Adele Carpenter RN * Question Answer Date of Assessment Author Precautions Fall risk;[facility] surveillance 09/07/2025 7:00 AM Marley Mejia RN * Calculated C-SSRS Risk Score (Lifetime/Recent) Answer Date of Assessment Author No Risk Indicated 09/07/2025 7:00 AM Marley Mejia RN * Question Answer Date of Assessment Author 1. Wish to be (Past 1 Month) No 025 7:00 AM Marley Mejia RN 2. Non-Specific Active Suici colton Thoughts (Past 1 Month) No 09/07/2025 7:00 AM Marley Mejia RN 6. Suicidal Behavior (Lifetime) No 7:00 AM Marley Mejia RN documented as of this encounter Mental Status * Question Answer Entry Date Author Precautions Fall risk;[facility] surveillance 09/07/2025 7:00 AM Marley Mejia RN documented in this encounter Medications at Time of Discharge aspirin 81 MG EC tablet Take 1 tablet by mouth nightly. atorvastatin (Lipitor) 80 MG tablet Take 1 tablet by mouth nightly. busPIRone (Buspar) 5 MG tablet Take 1 tablet by mouth 2 times a day as needed. 10/16/2023 Calcium Polycarbophil (FIBERCON PO) Take by mouth 2 times a day. Takes 3 am and 3 pm carvedilol (Coreg) 12.5 MG tablet Take 1 tablet by mouth 2 times a day. cholecalciferol (D3-5) 5,000 Units tablet Take 0.5 tablets by mouth daily. 09/08/2025 10/08/19 26 cyanocobalamin (Vitamin B-12) 1000 MCG tablet Take 1 tablet by mouth daily. 12/22/2017 escitalopram (Lexapro) 10 MG tablet Take 1 tablet by mouth daily. 12/13/2023 isosorbide mononitrate ER (Imdur) 30 MG 24 hr tablet Take 1 tablet by mouth daily. Do not crush or chew. Jardiance 25 MG Take 1 tablet by mouth daily. levothyroxine (Synthroid, Levoxyl) 137 MCG tablet Take 1 tablet by mouth daily before breakfast. lisinopril 5 MG tablet Take 1 tablet by mouth nightly. Melatonin 5 MG tablet tablet Take 1 tablet by mouth nightly. memantine (Namenda) 5 MG tablet Take 1 tablet by mouth 2 times a day. 01/05/2023 omega-3 (Fish Oil) 1000 MG capsule once daily. 02/05/2016 polyethylene glycol (Miralax) 17 g packet Take 17 g by mouth daily as needed (to target 1-2 BM daily). 09/07/2025 10/07/19 26 senna (Senokot) 8.6 MG tablet Take 2 tablets by mouth daily as needed for constipation (to target 1-2 BM daily). 09/07/2025 10/07/19 26 acetaminophen (Tylenol) 325 MG tablet Take 2 tablets by mouth every 8 hours for 15 days. 09/07/2025 09/22/20 25 folic acid (Folvite) 1 MG tablet Take 1 tablet by mouth daily for 6 doses. 09/08/2025 09/20/20 25 Heparin Sodium, Porcine, (heparin, porcine,) 5000 UNIT/ML injection Inject 1 mL under the skin every 8 hours for 13 days. 09/07/2025 09/20/20 25 sodium zirconium cyclosilicate (Lokelma) 10 g packet Take 10 g by mouth daily for 5 days. 09/08/2025 09/20/20 25 documented as of this encounter Miscellaneous Notes * Tania Randle RN - 09/07/2025 11:13 AM EST Images from the original note were not included. 798 Narcan Nasal [place]: Rescue Guide for Opioid Overdose Step 1 Check for signs of overdose. Think someone had opioid overdose? Shout their name and ask Are you OK? Try shaking them by the shoulders or rubbing the middle of the chest. Signs of overdose are: ? No response or does not wake up. ? Breathing is slow, odd, or has stopped. ? Center of the eye (pupil) is very small. If you see any of these signs, go to Step 2. Step 2 Give the medicine. 1. Lay the person flat on the back. 2. Get the Narcan nasal spray. Peel back the tab to remove the bottle. 3. Hold the bottle as shown. 4. Put your free hand behind the person?s neck. Gently lift to tilt the head back. 5. Place the nozzle inside one nostril until your fingers touch the nose. 6. Press the plunger with your thumb to spray. Then remove from the nostril. Step 3 Call 911 for help and watch the person. ? Call 911 for emergency help. ? Have the person lay on their side as shown. ? Look for a response. The person may wake up, breathe normally, or respond to touch or voice. ? If there is no response for 2-3 minutes after giving the spray, give another - if you have extra spray bottles. In that case, repeat Step 2 then move them back on to their side. ? You can repeat this every 2-3 minutes until help arrives or the person responds. ? Use this medicine only if you know or suspect the person has opioid overdose. ? Do not open the Narcan package until you need to use it. ? Only for use in the nose. * [facility] - Tania Do RN - 09/07/2025 11:13 AM EST Images from the original note were not included. 450 Safe Use of Controlled Substances Taking a medicine may be an important part of your treatment. Your body should heal faster if you take medicine safely. Some medicines are called Controlled Substances. This means their use is controlled by law. Some of these can harm you if you do not take them safely. What can I do to make sure I take my medicine safely? ? Follow the instructions we give you for how to take your medicine. ? We will give you an instruction sheet for each of your medicines. Ask your doctor or nurse if youdo not get these instructions. ? Some medicines make you sleepy or cloud your thinking. Do not drive, use heavy machines or do dangerous activities while taking these medicines. ? Read the label on the bottle each time you take your medicine. ? Do not take your medicine with alcohol or other sedatives. ? Do not take medicine after the expiration date. ? It is against the law to sell your medicine or share it with others. ? Do not drive while using your medicine. How should I store my medicine? Store it in a safe place. This will keep others from taking your medicine and help you keep track of it. ? Store controlled substances in a cabinet or container that you can lock. ? Keep it in a place that is cool, dry and out of direct sunlight. ? Do not leave it in the car. ? Do not store in a refrigerator or freezer, unless your doctor tells you to. ? Call your doctor right away if your medicine is lost or stolen. How should I dispose of medicine that is or no longer needed? You may have medicine left over that you do not need or should not take. You must dispose of it theright way to protect yourself and others. You can ask your local pharmacist how to dispose of them.You can also visit these Web sites to learn more about disposal of controlled substances: ? Drug Enforcement Agency (LOS): http://www.deadiversion.PacketVideooj.gov/drug_disposal/takeback/index.htm ? National Association of Drug Diversion Investigators (NADDI): http://rxdrugdropbox.org/ ? [place] Office of Drug Control Policy: http://odcp.[place].gov/Prescription+Drug+Drop+Box+Sites.htm Are there concerns about or ? ? Before you take a medicine, tell your doctor if you are or plan to get . This could harm your baby. ? Tell your doctor if you breastfeed. Medicine in breast milk may be bad for your child. What if I have low or impaired vision? If you have vision problems, take extra care with your medicine. ? Wear your glasses when you take your medicine. ? Do not take medicine in the dark. What are the signs of overdose? Some controlled substances may cause breathing problems if you take more than your doctor recommends. This may lead to serious health problems or even . You and your caregivers should watch for the following signs of overdose. ? Slurred speech, confusion or stumbling ? Feeling dizzy or faint ? Acting drowsy or groggy ? Unusual snoring, gasping or snorting during sleep ? Hard to wake up or keep awake What should I or my caregiver do if I overdose? You or your caregiver should call 911 if you have any of these problems: ? Cannot wake up ? Cannot talk after waking up ? Shortness of breath, slow or light breathing, or breathing has stopped ? Heartbeat is slow or stopped ? Gurgling noise comes from the mouth or throat ? Body is limp or seems lifeless ? Face is pale or clammy ? Fingernails or lips look blue or purple What is a DEBI report? DEBI is a system that tracks prescriptions of controlled substances in [place]. The DEBI report tells your doctor if you have been prescribed controlled substances in the past. Doctors must get a DEBI report before prescribing controlled substances. What can I do if the information in my DEBI report is wrong? You or your doctor may contact the dispenser who reported the information to DEBI. If the dispenser agrees that the information should be changed, he or she can fix the DEBI report. However, the dispenser may certify that the report is correct. If that is the case, you or your doctor may then call the [place] Drug Enforcement and Professional Practices Branch at .This will start an investigation of the error. * [facility] - 09/07/2025 11:12 AM EST Images from the original note were not included. [id number] Heparin Injection WHY is this medicine prescribed? Heparin is used to prevent blood clots from forming in people who have certain medical conditions or who are undergoing certain medical procedures that increase the chance that clots will form. Heparin is also used to stop the growth of clots that have already formed in the blood vessels, but it cannot be used to decrease the size of clots that have already formed. Heparin is also used in small amounts to prevent blood clots from forming in catheters (small plastic tubes through which medication can be administered or blood drawn) that are left in veins over a period of time. Heparin is in a class of medications called anticoagulants ('blood thinners'). It works by decreasing the clotting ab ility of the blood. HOW should this medicine be used? Heparin comes as a solution (liquid) to be injected intravenously (into a vein) or deeply under theskin and as a dilute (less concentrated) solution to be injected into intravenous catheters. Heparin should not be injected into a muscle. Heparin is sometimes injected one to six times a day and sometimes given as a slow, continuous injection into the vein. When heparin is used to prevent blood clots from forming in intravenous catheters, it is usually used when the catheter is first put in place, and every time that blood is drawn out of the catheter or medication is given through the catheter. Heparin may be given to you by a nurse or other healthcare provider, or you may be told to inject the medication by yourself at home. If you will be injecting heparin yourself, a healthcare provider will show you how to inject the medication. Ask your doctor, nurse, or pharmacist if you do not understand these directions or have any questions about where on your body you should inject heparin, how to give the injection, or how to dispose of used needles and syringes after you inject the medication. If you will be injecting heparin yourself, follow the directions on your prescription label carefully, and ask your doctor or pharmacist to explain any part you do not understand. Use heparin exactlyas directed. Do not use more or less of it or use it more often than prescribed by your doctor. Heparin solution comes in different strengths, and using the wrong strength may cause serious problems. Before giving an injection of heparin, check the package label to make sure it is the strength of heparin solution that your doctor prescribed for you. If the strength of heparin is not correct do not use the heparin and call your doctor or pharmacist right away. Your doctor may increase or decrease your dose during your heparin treatment. If you will be injecting heparin yourself, be sure you know how much medication you should use. Are there OTHER USES for this medicine? Heparin is also sometimes used alone or in combination with aspirin to prevent loss and other problems in women who have certain medical conditions and who have experienced these problems in their earlier pregnancies. Talk to your doctor or pharmacist about the risks of using this medication to treat your condition. This medication may be prescribed for other uses; ask your doctor or pharmacist for more information. What SPECIAL PRECAUTIONS should I follow? Before using heparin, ? tell your doctor and pharmacist if you are allergic to heparin, any other medications, beef products,pork products, or any of the ingredients in heparin injection. Ask your doctor or pharmacist fora list of the ingredients. ? tell your doctor and pharmacist what prescription and nonprescription medications, vitamins, nutritional supplements, and herbal products you are taking or plan to take while using heparin. Your doctor may need to change the doses of your medications or monitor you carefully for side effects. ? the following nonprescription products may interact with heparin: aspirin and nonsteroidal anti-inflammatory drugs (NSAIDS) such as ibuprofen (Advil, Motrin, others) and naproxen (Aleve); nicotine;allergy medications (diphenhydramine, loratadine, fexofenadine, chlorpheniramine or cetirizine). Besure to let your doctor and pharmacist know that you are taking these medications before you start using heparin. Do not start any of these medications while using heparin without discussing with your healthcare provider. ? tell your doctor if you have a low level of platelets (type of blood cells needed for normal clotting) in your blood and if you have heavy bleeding that cannot be stopped anywhere in your body. Your doctor may tell you not to use heparin. ? tell your doctor if you are currently experiencing your menstrual period; if you have a fever or an infection; and if you have recently had a spinal tap (removal of a small amount of the fluid thatbathes the spinal cord to test for infection or other problems), spinal anesthesia (administration of pain medication in the area around the spine), surgery, especially involving the brain, spinal cord or eye, or a heart attack. Also tell your doctor if you have or have ever had a bleeding disordersuch as hemophilia (condition in which the blood does not clot normally), antithrombin III deficiency (condition that causes blood clots to form), blood clots in the legs, lungs, or anywhere in the body, unusual bruising or purple spots under the skin, cancer, ulcers in the stomach or intestine, a tube that drains the stomach or intestine, high blood pressure, or liver disease. ? tell your doctor if you are , plan to become , or are breast- feeding. If you become while using heparin, call your doctor. ? if you are having surgery, including dental surgery, tell the doctor or dentist that you are using heparin. ? tell your doctor if you smoke or use tobacco products and if you stop smoking at any time during your treatment with heparin. Smoking may decrease the effectiveness of this medication. What SPECIAL DIETARY instructions should I follow? Unless your doctor tells you otherwise, continue your normal diet. What should I do IF I FORGET to take a dose? If you will be injecting heparin yourself at home, talk to your doctor about what you should do if you forget to inject a dose. What SIDE EFFECTS can this medicine cause? Some side effects can be serious. If you experience any of these symptoms, call your doctor immediately: ? unusual bruising or bleeding ? vomit that is bloody or looks like coffee grounds ? stool that contains bright red blood or is black and tarry ? blood in urine ? excessive tiredness ? nausea ? vomiting ? chest pain, pressure, or squeezing discomfort ? discomfort in the arms, shoulder, jaw, neck, or back ? coughing up blood ? excessive sweating ? sudden severe headache ? lightheadedness or fainting ? sudden loss of balance or coordination ? sudden trouble walking ? sudden numbness or weakness of the face, arm or leg, especially on one side of the body ? sudden confusion, or difficulty speaking or understanding speech ? difficulty seeing in one or both eyes ? purple or black skin discoloration ? pain and blue or dark discoloration in the arms or legs ? itching and burning, especially on the bottoms of the feet ? chills ? fever ? hives ? rash ? wheezing ? shortness of breath ? difficulty breathing or swallowing ? hoarseness ? painful erection that lasts for hours Heparin may cause osteoporosis (condition in which the bones become weak and may break easily), especially in people who use the medication for a long time. Talk to your doctor about the risks of using this medication. Heparin may cause other side effects. Call your doctor if you have any unusual problems while usingthis medication. What should I know about STORAGE and DISPOSAL of this medication? If you will be injecting heparin at home, your healthcare provider will tell you how to store the medication. Follow these directions carefully. Be sure to keep this medication in the container it came in, tightly closed, and out of reach of children. Store it at room temperature and away from excess heat and moisture (not in the bathroom). Do not freeze heparin. Keep all medication out of sight and reach of children as many containers are not child-resistant. Always lock safety caps. Place the medication in a safe location - one that is up and away and out of their sight and reach. https://www.upandaway.org Dispose of unneeded medications in a way so that pets, children, and other people cannot take them.Do not flush this medication down the toilet. Use a medicine take-back program. Talk to your pharmacist about take-back programs in your community. Visit the FDA's Safe Disposal of Medicines website h ttps://goo.gl/c4Rm4p for more information. What should I do in case of OVERDOSE? In case of overdose, call the poison control helpline at . Information is also available online at https://www.poisonhelp.org/help. If the victim has collapsed, had a seizure, has trouble breathing, or can't be awakened, immediately call emergency services at 132. Symptoms of overdose may include: ? nosebleed ? blood in urine ? black, tarry stools ? easy bruising ? unusual bleeding ? red blood in stools ? vomit that is bloody or looks like coffee grounds What OTHER INFORMATION should I know? Keep all appointments with your doctor and the laboratory. Your doctor will order certain lab teststo check your body's response to heparin. Your doctor may ask you to check your stool for blood using an at-home test. Before having any laboratory test, tell your doctor and the laboratory personnel that you are usingheparin. Do not let anyone else use your medication. Ask your pharmacist any questions you have about refilling your prescription. Keep a written list of all of the prescription and nonprescription (fbau-mny-kpwbxya) medicines, vitamins, minerals, and dietary supplements you are taking. Bring this list with you each time you visit a doctor or if you are admitted to the hospital. You should carry the list with you in case of jenni rgencies. Brand Name(s): ? Lipo-Hepin? Liquaemin? Panheparin? also available generically ?? This branded product is no longer on the market. Generic alternatives may be available. This report on medications is for your information only, and is not considered individual patient advice. Because of the changing nature of drug information, please consult your physician or pharmacist about specific clinical use. The [place] [employer] represents that the information provided hereunder was formulated with a reasonable standard of care, and in conformity with professional standards in the field. The [place] [employer] makes no representations or warranties, express or implied, including, but not limited to, any implied warranty of merchantability and/or fitness for a particular purpose, with respect to such information and specifically disclaims all such warranties. Users are advised that decisions regarding drug therapy are complex medical decisions requiring the independent, informed decision of an appropriate health property caretaker, and the information is provided for informational purposes only. The entire monograph for a drug should be reviewed for a thorough understanding of the drug's actions, uses and side effects. The [place] [employer] does not endorse or recommend the use of any drug.The information is not a substitute for medical care. AHFS?? Patient Medication Information?. ?? Copyright, 2023. The [place] [employer]??, [address], [address], [place], [place]. All Rights Reserved. Duplication for commercial use must be authorized by [facility]. Selected Revisions: June 18, 2017. AHFS?? Patient Medication Information?. ?? Copyright, 2024 * [facility] - Tania Do RN - 09/07/2025 11:12 AM EST Images from the original note were not included. 1287 What Your Weight Bearing Status Means Your doctor?s orders: Non-Weight Bearing (NWB) Do not put any weight on your arm or leg at all. If your leg is injured, do not let it touch the floor when you sit, stand, or walk. When you walk, hold your leg off the ground. Touch Down Weight Bearing (TDWB) You may rest your leg on the ground when you sit, stand, or walk - for balance only. Do not put your body weight on that leg. It should only support the weight of your leg. This is also called ?Yjiqyh-kp-Tem Weight Bearing,? ?Toe-Touch Weight Bearing,? or ?Foot-Flat Weight Bearing.? Weight Bearing for Transfers Only You may place just enough body weight on the arm or leg to move from the bed to a chair, wheelchair, or bedside commode. You must stay in a seated or squatting position while moving. Do not stand, take steps, or put your full body weight on the arm or leg. Partial Weight Bearing (PWB) Your doctor will tell you how much weight you can put on your arm or leg. The weight may be in pounds or as a percent of body weight. Do not put more weight on the arm or leg than the doctor allows. Protected Weight Bearing (pWBAT) Protected weight bearing means your doctor would like you to use an assistive device while walking for extra support. While using a device such as a walker or cane, put as much weight as feels comfortable on your arm or leg. If you have pain, put less weight on the arm or leg. Weight Bearing as Tolerated (WBAT) You may put your full body on the injured arm or leg if pain allows. This is close to full weight bearing. Put more and more weight on the arm or leg as you heal and have less pain. There is no limitto how much weight you should put on your arm or leg - just let your comfort and pain level to guide you. You can use an assistive device such as a walker, crutches, or cane as needed for more support if you have pain or weakness with walking. Weight Bearing as Tolerated Through Elbow Do not place any weight through your wrist or hand until your injury heals. You may place as much weight as you can stand through your elbow as you change positions, get up, or move - such as when you use a platform walker. Passive Range of Motion as Tolerated Do not move the joint in your arm or leg on your own. As your pain allows, another person may move the joint for you. This may be a therapist, doctor, nurse, or family caregiver. Range of Motion as Tolerated (ROMAT) You can move your joint as much as feels comfortable. There is no limit to how much you can move the joint. Move the arm or leg joint more and more as you heal and have less pain. It is very important to keep your joints moving as you heal. This is also called ?Active Range of Motion as Tolerated.? Activity as Tolerated (AAT) You may use your arm or leg as much as your pain allows. There is no limit to how much weight you should place on the arm or leg. And there is no limit to the range of motion for the arm or leg. Use the arm or leg more and more as you heal and have less pain. * [facility] - Tania Do RN - 09/07/2025 11:12 AM EST Images from the original note were not included. 17077 Preventing Falls: Staying Active Staying active is one of the best things you can do to prevent falls. Keep in mind that doing too little can be as risky as doing too much. That's because not being active can make you weaker and more likely to fall. But how much can you do safely? Start easy. Slowly work up to doing more. Talk with your health care provider about safe ways for you to stay active. Stay active, stay connected Staying in contact with other people can help lower your risk of falls. It also helps to keep you from feeling isolated and depressed. Find a social activity you enjoy. Make it part of your weekly ordaily routine: ? Join a club or visit a senior center. ? Go to religion services. ? Plan a potluck or game of cards. ? Garden with your neighbor. ? Have a friend join you to go walking outdoors or in the mall. How exercise helps The list of benefits from exercise just keeps getting longer. And, as you age, you can keep gettingthose rewards. Balance, flexibility, strength, and endurance all come from exercise. They all play a role to prevent falls. It's never too late to start exercising. Try organized activities. You can find these at senior centers, health clubs, or even at a place of moravian. This may work best if you' ve never exercised in the past or if you need company to get motivated. But you can exercise on your own if you prefer. Try an exercise video or walk in the park. Last Reviewed Date: 2025 00:00:00 ?? [id number] [employer]. All rights reserved. This information is not intended as a substitute for professional medical care. Always follow your healthcare professional's instructions. * [facility] Tania Do RN - 09/07/2025 11:12 AM EST Images from the original note were not included. [id number] After a Fall You have had a fall today. That means that you slipped, tripped, or lost your balance. If your fallwas because of fainting or a seizure, you might need other tests. It's normal to feel sore and tight in your muscles and back the next day, and not just the muscles you injured. Remember, all the parts of your body are connected, so while one area hurts now, the next day another may hurt. Also, when you injure yourself, it causes inflammation. This then causes the muscles to tighten up and hurt more. After the symptoms get worse, they should slowly improve overthe next few days. Tell your doctor if you have more severe pain. Even without a definite head injury, you can still get a concussion from your head suddenly jerkingforward, backward, or sideways when you fall. This is especially true if you have had concussions in the past. Concussions and even bleeding can still happen, especially if you had a recent injury ortake blood thinner medicine. It is not unusual to have a mild headache and feel tired and even nauseated or dizzy. Home care ? Rest today. Return to your normal activities when you are feeling back to normal. ? If you were injured during the fall, follow the advice from your doctor about how to care for your injury. ? At first, don't try to stretch out the sore spots. If there is a strain, stretching may make it worse. Massage may help relax the muscles without stretching them. ? Use an ice pack or a cold compress on and off at the sore spots for 10 to 20 minutes at a time, as often as you feel comfortable. This may help reduce the inflammation, swelling, and pain. ? Know that if you have any scrapes (abrasions), they often heal within 10 days. Keep the scrapes clean while they start to heal. But an infection may happen even with correct care. So watch for early signs of infection (such as warmth, redness, or swelling). Medicines ? Talk with your doctor before taking new medicines, especially if you have other health problems or are taking other medicines. ? If you need anything for pain, use acetaminophen or ibuprofen, unless you were given a different pain medicine to use. Talk with your doctor before using these medicines if you: o Have chronic liver or kidney disease. o Ever had a stomach ulcer or gastrointestinal bleeding. o Are taking blood-thinner medicines. ? Be careful if you are given prescription pain medicines, narcotics, or medicine for muscle spasms. They can make you sleepy and dizzy. And they can affect your coordination, reflexes, and judgment.Don't drive or do work where you can hurt yourself when taking them. Fall prevention ? Fix, remove, or replace anything that caused your fall. ? Make your home safe by keeping walkways clear of objects you could trip over. ? Use nonslip pads under rugs. Don't use small area rugs or throw rugs. ? Don't walk in poorly lit areas. ? Don't stand on chairs or wobbly ladders. ? Be careful when you reach overhead or look upward. This position can cause a loss of balance. ? Be sure your shoes fit correctly, have nonslip bottoms, and are in good condition. ? Be careful when you go up and down curbs and when you walk on uneven sidewalks. ? If your balance is poor, think about using a cane or walker. ? Stay as active as you can. Balance, flexibility, strength, and endurance all come from exercise. They all play a role in preventing falls. ? If you have pets, know where they are before you stand up or walk so you don't trip over them. ? Limit alcohol intake. Alcohol can cause balance problems and increase the risk for falls. ? Use night-lights. ? Have your eyes tested to be sure you are seeing well, even if you already wear glasses. Follow-up Follow up with your doctor, or as advised. If X-rays or CT scans were done, you will be told if there is a change in the reading, especially if it affects treatment. Call 911 Call 911 if you have: ? Trouble breathing. ? Confusion. ? Trouble waking up. ? Fainting or loss of consciousness. ? A fast or very slow heart rate. ? A seizure. ? Trouble with speech or vision, or weakness of an arm or leg. ? Trouble walking or talking, loss of balance, numbness or weakness on one side of your body, or facial droop. When to get medical advice Contact your doctor right away if you have: ? Repeated falls, including falls that seem to happen for no reason. ? Dizziness. ? A severe headache. ? Blood in your vomit or stools. (They look black or red.) Last Reviewed Date: 2025 00:00:00 ?? [id number] [employer]. All rights reserved. This information is not intended as a substitute for professional medical care. Always follow your healthcare professional's instructions. * [facility] - Tania Do RN - 09/07/2025 11:11 AM EST Images from the original note were not included. 03095 Understanding Hip Fractures The hip is one of the largest weight-bearing joints in the body. It?s also a common place for a fracture after a fall--especially in older people. Hip fractures are even more likely in people with osteoporosis, a disease that leads to weakened bones. A healthy hip The hip is a myof-alm-edlsbj joint where the thighbone (femur) joins the pelvis. When the hip is healthy, you can walk, turn, and move without pain. The head or ball of the femur fits into a socket in the pelvis. The ball and socket are each covered with smooth cartilage. This allows the ball to glide easily in the socket. Blood vessels supply oxygen and nutrients to keep the hip joint healthy. A fractured hip The hip can fracture in many places. Most often, the fracture occurs in the upper part of the femur. In rare cases, you can also have more than one type of fracture at a time: ? Transcervical fracture. A break across the neck of the femur, just under the ball. This type of fracture can interrupt blood flow to the joint. ? Intertrochanteric fracture. A break down through the top of the femur. ? Subtrochanteric fracture. A break across the upper shaft of the femur. Last Reviewed Date: 2024 00:00:00 ?? [id number] [employer]. All rights reserved. This information is not intended as a substitute for professional medical care. Always follow your healthcare professional's instructions. * [facility] - Tania Do RN - 09/07/2025 11:11 AM EST Images from the original note were not included. 16117 Hip Fracture Surgery: Types The type of surgery you have often depends on where the hip is fractured. In some cases, internal fixation is used. This is when pins, screws, or a oswald is placed into the fractured bone to hold it inplace as it heals. In other cases, part or all of the hip is replaced. This is done when there's a lack of blood supply to the head of the femur, or if internal fixation isn't advised. Pins Metal pins or large screws are sometimes used to repair fractures along the neck of the femur. The pins are inserted through the bone to keep it stable while it heals. Screw and side plate A metal compression screw and side plate may be used to repair the fracture. As the bone heals, thescrew gets tighter. This allows the edges of the bone to grow together. Oswald A metal oswald or nail may be used if the fracture is along the upper shaft of the femur. The oswald is inserted into the bone shaft. A screw keeps the bone edges together as they heal. Hip replacement Artificial parts may be used to replace part or all of the hip joint. For a total hip replacement, a new stem and ball are placed in the femur. These fit into a new cup secured in the pelvis. For a partial hip replacement, only the stem and ball are replaced. Last Reviewed Date: 2024 00:00:00 ?? [id number] [employer]. All rights reserved. This information is not intended as a substitute for professional medical care. Always follow your healthcare professional's instructions. * [facility] - Tania Do RN - 09/07/2025 11:11 AM EST Images from the original note were not included. 10986 What Is Osteoporosis? Osteoporosis is a disease that weakens the bones. Weakened bones are more likely to break (fracture). Osteoporosis can affect anyone. But those most at risk are postmenopausal women. To help prevent osteoporosis, you need to exercise and nourish your bones throughout your life. Childhood The body builds the most bone during these years. That's why children need foods rich in calcium. They also need plenty of exercise. A healthy diet and exercise helps bones grow strong. Young adulthood to age 30 During young adulthood, bones become their strongest. This is called peak bone mass. The same good habits that kept bones healthy in childhood help keep bones healthy in adulthood. Age 30 to menopause Bone mass declines slightly during these years. Your body makes just enough new bone to maintain peak bone mass. To keep your bones at their peak mass, be sure to exercise and get plenty of calcium. After menopause Menopause is when a woman stops having monthly periods. After menopause, the body makes less estrogen (female hormone). This increases bone loss. At this point, treatment may be needed to reduce the risk for fracture. Exercise, calcium, and vitamin D supplements can also help keep your bones strong. Later in life In later years, all adults need to take extra care of their bones. By this point, the body loses more bone than it makes. If too much bone is lost, you may be at increased risk for fractures. With age, the quality and quantity of bone declines. You can reduce bone loss by staying active and increasing your calcium and vitamin D intake. Osteoporosis supplements and treatments may have risks, so talk with your healthcare provider if you have concerns. If you have osteoporosis, it is important to learn ways to increase everyday safety. Last Reviewed Date: 2024 00:00:00 ?? [id number] [employer]. All rights reserved. This information is not intended as a substitute for professional medical care. Always follow your healthcare professional's instructions. * Discharge Summary - Pita Muhammad MD - 09/07/2025 10:29 AM EST Hospitalization Admit Date/Time: 09/03/2025 6:27 AM Admitting Attending: Emani Cunningham Discharge Date: 09/07/2025 Discharge Attending Physician: Renu Barros MD PCP name and Address: Srinivasan Smith MD [address] [facility] [address] / [place] [address] Referring provider name and address: David Francisco MD [address] [facility] [address] [place] [address] Chief Concern, Brief History of Present Illness, and Hospital Course 85 y.o. female with a PMHx of Aortic Stenosis s/p TAVR 01/19/2022 with a 23mm Shannon valve, CAD s/pPCI to ostial/mid LAD in 2015, hx of PFO seen on bubble study in 2007, SAH in 2007, HTN, HLD, T2DM not on insulin, NARAYAN, depression, memory loss, and hypothyroidism who presents with proximal left femur fracture after sustaining a ground level fall. Now s/p L intertrochanteric femur fracture cephalomedullary nail on 09/04/25, recovered well and mobilizing with assistance. Acute Conditions: #Left Intertrochanteric Femur Fracture - Mechanism: Mechanical - Orthopedic surgery consulted: yes and s/p OR on 09/04/25 s/p L intertrochanteric femur fracture cephalomedullary nail. - CT Bony Pelvis: Acute comminuted angulated intertrochanteric left femur fracture. Degenerative changes and demineralization as described. Cummings hyperdense structure in the region of the right renal pelvis which was present on prior radiograph and may represent a large renal calculus. - Pain control on discharge: APAP q6h PRN - Bowel regimen: continue lokelma once daily until BMP recheck on 09/10 to monitor potassium. Continue miralax, senna PRN to target daily BM - BMD labs sent, consulted: not candidate for zolendronic acid. 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 - unclear baseline but last recorded in our system is from 01/20/2022 showing Cr of 1.01 - Cr at admission is 3.17, had Cr of 2.17 at her last PCP visit on 08/24/25 with eGFR of 22 - recent UTI with bactrim prescribed which could directly result in kidney injury - pt notes was down for approx 4hrs at home after fall - no signs of ATN on UA - CK level elevated in 800s - cystatin C of 2.09, likely this is closer to her baseline Cr levels - Cr stable at 2.25 on day of discharge Plan: - hold Lomotil on discharge w/c/f possible drug induced kidney injury 2/2 chronic use - follow up repeat BMP 09/10/2025 for Cr follow up #Disorder of Fluids and Electrolytes with Hyperkalemia and Hyponatremia - etiology is likely from ASHLEY in combination with poor PO intak - now s/p 2 rounds of HyperK protocol - potassium elevated again after surgery to 5.8 - initiated lokelma and K improved to 4.2 Plan: - repeat BMP 09/10/2025 for K recheck - continue lokelma until 09/10/2025 and reassess need to continue - cntinue miralax/senna on PRN basis to target 1-2 BM daily #thrombocytopenia - platelets on admission of 79k with baseline of 130 days prior to admission - thrombocytopenia possibly 2/2 folate deficiency vs MDS (T4 score not severe) Plan: - start folic acid for 1-week duration - CBC recheck on 09/10/2025 to monitor platelets - if platelet count <50k, reconsider DVT ppx and hold #grade 1 diastolic dysfunction - echo obtained: EF of 62% and shows grade 1 diastolic dysfunction, prosthetic aortic valve is appropriate Plan: - PCP to f/u outpatient #Bone Mineral Disease with Hyperparathyroidism likely Secondary to Vitamin D deficiency - continue Vit D replacement and Ca supplmenetation (was not candidate for zolendronic acid) Chronic Conditions: #CAD: continue ASA, last cath in 2020 showed patent stent, continue imdur #HTN: resume home lisinopril, coreg #T2DM: pt notes controlled with diet, resume home jardiance #Memory loss with mild cognitive impairment: on memantidine #Hyperlipidemia: resumed home atorvastatin #Depression with anxiety: resumed home lexapro #Hypothyroidism: resumed home synthroid #Irritable bowel syndrome with diarrhea: will hold Lomotil - could be contributing to her kidney injury/dysfunction #PFO: seen on bubble study in 2007 #SAH: occurred in 2007 #NARAYAN: does not admit to cpap at home #Hx of TIA Surgeries and Procedures Procedures performed in this encounter Procedures Case Request Operating Room: INSERTION, INTRAMEDULLARY OSWALD, FEMUR INSERTION, INTRAMEDULLARY OSWALD, FEMUR (Left) Medication List .. acetaminophen 325 MG tablet Commonly known as: Tylenol Take 2 tablets by mouth every 8 hours for 15 days. aspirin 81 MG EC tablet Take 1 tablet by mouth nightly. atorvastatin 80 MG tablet Commonly known as: Lipitor Take 1 tablet by mouth nightly. busPIRone 5 MG tablet Commonly known as: Buspar Take 1 tablet by mouth 2 times a day as needed. carvedilol 12.5 MG tablet Commonly known as: Coreg Take 1 tablet by mouth 2 times a day. cholecalciferol 5,000 Units tablet Commonly known as: D3-5 Take 0.5 tablets by mouth daily. Start taking on: September 08, 2025 cyanocobalamin 1000 MCG tablet Commonly known as: Vitamin B-12 Take 1 tablet by mouth daily. escitalopram 10 MG tablet Commonly known as: Lexapro Take 1 tablet by mouth daily. FIBERCON PO Take by mouth 2 times a day. Takes 3 am and 3 pm folic acid 1 MG tablet Commonly known as: Folvite Take 1 tablet by mouth daily for 6 doses. Start taking on: September 08, 2025 heparin (porcine) 5000 UNIT/ML injection Inject 1 mL under the skin every 8 hours for 13 days. isosorbide mononitrate ER 30 MG 24 hr tablet Commonly known as: Imdur Take 1 tablet by mouth daily. Do not crush or chew. Jardiance 25 MG Generic drug: empagliflozin Take 1 tablet by mouth daily. levothyroxine 137 MCG tablet Commonly known as: Synthroid, Levoxyl Take 1 tablet by mouth daily before breakfast. lisinopril 5 MG tablet Take 1 tablet by mouth nightly. Melatonin 5 MG tablet tablet Take 1 tablet by mouth nightly. memantine 5 MG tablet Commonly known as: Namenda Take 1 tablet by mouth 2 times a day. omega-3 1000 MG capsule Commonly known as: Fish Oil once daily. polyethylene glycol 17 g packet Commonly known as: Miralax Take 17 g by mouth daily as needed (to target 1-2 BM daily). senna 8.6 MG tablet Commonly known as: Senokot Take 2 tablets by mouth daily as needed for constipation (to target 1-2 BM daily). sodium zirconium cyclosilicate 10 g packet Commonly known as: Lokelma Take 10 g by mouth daily for 5 days. Start taking on: September 08, 2025 Where to Get Your Medications Information about where to get these medications is not yet available Ask your nurse or doctor about these medications acetaminophen 325 MG tablet cholecalciferol 5,000 Units tablet folic acid 1 MG tablet heparin (porcine) 5000 UNIT/ML injection polyethylene glycol 17 g packet senna 8.6 MG tablet sodium zirconium cyclosilicate 10 g packet Discharge Diagnosis Medical Problems Active and Resolved Hospital Problems Hospital * (Principal) Displaced intertrochanteric fracture of left femur, initial encounter for closed fracture Osteoporosis with current pathological fracture Post Discharge Instructions As outlined above 09/20 wound check follow up with Ortho BMP and CBC recheck on 09/10/25 Continue lokelma until can confirm K is stable. Resume PRN miralax and senna for target 1-2 BM daily If platelets low on CBC recheck, hold DVT ppx (currently SubQ heparin 5000u q8h for 28 days post-injury on 09/02) Outpatient Follow-Up Future Appointments Date Time Provider Department Center 09/20/2025 10:50 AM Sarah Hunter PA [facility] 09/20/2025 12:00 PM [facility] Test Results Pending At Discharge Pending Labs Order Current Status Prepare Leukocyte Reduced RBC: 2 Units, Leukocyte reduced (CMV reduced risk) Preliminary result Pertinent Physical Exam At Time of Discharge Physical Exam Physical Exam General: No acute distress; sitting upright in a chair, speaking in full sentences Head: normocephalic, atraumatic EENT: sclera clear, no proptosis or lid lag; range of motion of neck intact Cardiac: regular rate, no murmurs, no edema Lungs: breath sounds equal, respirations non-labored, no audible wheezes or coughing, on room air Abdomen: soft, non-tender, non-distended Neuro: AAOx3, follows commands, speech intact, normal hearing Skin: no obvious rashes : deferred, no urinary complaints MSK: moving upper extremities well , ROM intact, facial muscles appear symmetrical Heme: no obvious bruising, no pallor Psych: alert, awake, answering questions, appropriate mood and behavior Discharge Disposition/Condition Disposition: Rehab facility (specify) Condition: Stable (s/sx potential problems absent or manageable) I spent >30 minutes of patient care and instruction time in preparation for this discharge. Cosigned by Renu Barros MD at 09/07/2025 12:02 PM EST Associated attestation - Renu Barros MD - 09/07/2025 12:02 PM EST I saw and evaluated the patient. I discussed the case with the resident/fellow and agree with the findings and plan as documented. and I spent >30 minutes of patient care and instruction time in preparation for this discharge. * Progress Notes - Daylin Parks - 09/07/2025 10:28 AM EST Occupational Therapy Treatment Patient Name: Rachel Roger Today's Date: 09/07/2025 OT Discharge Recommendations: Subacute rehab Equipment Recommended: Defer to facility Total treatment time: 38 minutes Subjective Pt agreeable to participate in OT session. Participants in Care Family/Caregiver Present: No Presentation Oxygen Therapy: None (Room air) Lines and Tubes: Intravenous access, Telemetry Pre-Session: Supine, Head of bed elevated, Lines intact, Bed alarm Pre-Session Comments: RN agreeable to OT session. Post-Session: Sitting in chair, Chair alarm, Lines intact, RN notified, Call light in reach Post-Session Comments: All needs met and within reach. Precautions Left Lower Extremity Weight Bearing Status: Weight Bearing as Tolerated Medical Precautions: Fall precautions Objective Pain Pt denies pain this date. Delirium Screening RASS: Alert and calm Confusion Assessment Method-ICU (CAM-ICU/PCAM-ICU) Feature 3: Altered Level of Consciousness: Negative Cognition Within Functional Limits Bed Mobility Bed Mobility Exam: Scooting/Bridging Level of [place]: Contact guard (seated scooting) Physical/Nonphysical Assist: Verbal Cues, Minimal cues Assistive Device: Bed rails Bed Mobility Exam: Supine to Sit Level of [place]: Minimum assist (75% patient's effort) Physical/Nonphysical Assist: Verbal Cues, Minimal cues, HOB elevated Assistive Device: Bed rails Transfers Transfer Exam: Sit to stand Level of [place]: Minimum assist (75% patient's effort) Physical/Nonphysical Assist: Verbal Cues, Minimal cues Assistive Device: Walker, rolling Transfer Exam: Stand to Sit Level of [place]: Minimum assist (75% patient's effort) Physical/Nonphysical Assist: Verbal Cues, Minimal cues Assistive Device: Walker, rolling Transfer Exam: Bed to Chair/Chair to Bed Level of [place]: Minimum assist (75% patient's effort) Physical/Nonphysical Assist: Verbal Cues, Minimal cues Type of Transfer: (ambulation) Assistive Device: Walker, rolling Self-Care Interventions Self Care/Home Management (ADLs) Time Entry: 38 Pt benefited from skilled occupational therapy interventions including: Monitoring of vitals to ensure activity tolerance (Vitals remained WFL throughout session.) MIN verbal and tactile cues to facilitate improved body mechanics and safety with AD use during functional tasks Provision of increased time frames to support optimal level of pt participation Task/activity modification with grading as needed to achieve safety while also providing appropriate functional challenge Skilled organization and management of medical lines/tubes to reduce fall risk with mobility aspects of ADLs Environmental set-up to ensure safety and accessibility to all needed areas of treatment space Grooming Grooming Level of Assistance: Setup, SBA Grooming Where Assessed: Sitting sinkside Grooming Interventions: Pt unable to complete grooming routine at baseline level of standing. Therapist modified task to unsupported sitting at chair level at sink to support highest level of independence with grooming tasks within current level of activity tolerance, supporting increased volitional effort and locus of control. Pt completed sequential grooming routine: washing face, combing hair, brushing teeth/denture care, and applying Deoderant with set-up assist for opening packages/containers. UE Dressing UE Dressing Level of Assistance: Setup, Minimum assistance UE Dressing Where Assessed: Chair level UE Dressing Interventions: Pt doffed soiled gown and donned new gown with min assist 2/2 line management and adjust/manage gown posteriorly. Toileting Toileting Interventions: In preparation for functional demands of toileting, pt completed low surface sit>stand transfers x 2 trials in order to simulate functional toilet transfer. Pt completed trials with min assist x 2 using RW. Pt additionally completed functional bed> bed side chair transfer in order to simulate bed > BSC transfer. Pt completed transfer with min assist. Verbal and tactile cues provided for upright postural control, RW use, BLE sequencing, and safe hand positioning. Noted, with pt's initial stand, pt to have small bowel movement with soiled sheets. Pt maintainingstatic stand with CGA for therapist to provide posterior taya-care. Increased time and dependent assist provided for posterior taya-care and hygiene this date. Assessment Pt remains not safe to return home, even with home health services, due to the following OT-relatedfunctional limitations and safety concerns: The patient demonstrates poor static and dynamic balance, resulting in frequent near-falls or actual falls during ADLs, transfers, and mobility tasks. Supervision or hands-on assistance is required for essential self-care tasks (e.g., bathing, toileting, dressing), which exceeds the level of support typically available through intermittent home health visits. The patient lacks the cognitive and/or physical capacity to safely compensate for these deficits without continuous skilled oversight and environmental control, which is not feasible in the home setting. The home environment lacks the necessary adaptive equipment or 24/7 supervision, placing the patient at high risk for injury. The patient requires daily, skilled OT interventions to restore ADL independence, improve safety awareness, and establish safe routines -- services that cannot be delivered at the intensity or frequency through home health. Given these factors, subacute rehabilitation is the most appropriate discharge option to ensure patient safety, prevent further injury or readmission, and support functional recovery through comprehensive, daily OT services in a structured environment. OT Recommendations Discharge Destination: Subacute rehab Discharge Equipment: Defer to facility Plan Continue with established OT plan of care 2-5x/week to progress towards functional OT goals. Goals OT GOAL DETAILS Goal Established Date Time Frame Goal Status OT Goal 1: Pt will complete lower body dressing with mod A and AAD PRN. 09/05/25 2 weeks OT Goal 2: Pt will complete grooming while standing at sink with CGA and AAD PRN. 09/05/25 2 weeks OT Goal 3: Pt will demonstrate independence in bilateral UE HEP to increase strength and endurance for ADL performance. 09/05/25 2 weeks OT Goal 4: Pt will complete toileting including clothing management and personal hygiene with CGA and AAD PRN. 09/05/25 2 weeks OT Goal 5: Pt will be independent with energy conservation and work simplifcation techniques duringADL activities for 2/2 sessions to ensure educational retention. 09/05/25 2 weeks Written by Daylin Parks on 09/07/25 at 1:13 PM. * Progress Notes - Adele Wu RN - 09/07/2025 10:24 AM EST Case Management Discharge Note Rachel Roger 85 y.o. female CSN: [id number] Admission: 09/03/2025 6:27 AM Primary Problem: Displaced intertrochanteric fracture of left femur, initial encounter for closed fracture Primary Data Conversion Developer: Primary Caregiver: Self Assistance Available at Discharge: Current Outpatient/Agency/Support Group: other (see comments) (n/a) Availability of Care Givers (#Hours): 1-4 hours Family/Data Conversion Developer(s) Willingness Assessed to care for patient at home: Yes Family/Data Conversion Developer(s) Readiness Assessed to care for patient at home: Yes Housing Circumstances-Z Codes: Housing Circumstances (select all that apply): Low Income (101-300% Federal Poverty Guidlines) - Z596 Discharge Facility/Level of Care Needs: Discharge Facility/Level of Care Needs: nursing facility, skilled Patient's Choice of Community Agency(s): Patient's Choice of Community Agency(s): [facility] Patient/Family Anticipated Services at Transition: Patient/Family Anticipated Services at Transition: retirement DME/Equipment Needed after Discharge: Equipment Currently Used at Home: none Equipment Needed After Discharge: none Readmission Within the Last 30 Days: Readmission Within the Last 30 Days: no previous admission in last 30 days Medicare Documentation: Medicare Second Notice?: Yes Date Second Notice Completed: 09/07/25 Time Second Notice Completed: 1010 Medicare Second Notice Recieved By: patient Follow-up: [facility] [address], [address] [facility] [id number] Discharge Transportation: Transportation Anticipated: family or friend will provide Transportation Home at Discharge: Medical Transport Has discharge transport been arranged?: Yes What day is the transport expected?: 09/07/25 What time is the transport expected?: 1200 Follow Up Transport: Transportation Needed to Follow up Appoinments: Family/Friend will Provide Additional Comments: Per primary provider, pt is medically ready to discharge to [facility]. Pt has been approved to admit to [facility] today. Therese DENNIS is confirmed for noon today and pt will be sent to the [facility]. Pt stated she would update her family with transport time and is agreeable to discharge. [facility] [phone] [phone] [facility] Adele Wu RN * Care Plan - Marley Almonte RN - 09/07/2025 10:15 AM EST Problem: Adult Inpatient Plan of Care Goal: Plan of Care Review Outcome: Adequate for Care Transition Flowsheets (Taken 09/07/2025 0126 by Sparkle Guerrero, FILIBERTO) Progress: improving Plan of Care Reviewed With: patient Goal: Patient-Specific Goal (Individualized) Outcome: Adequate for Care Transition Flowsheets (Taken 09/07/2025 0700) Patient/Family-Specific Goals (Include Timeframe): Pt will remain free from fall/injury this shift. Individualized Care Needs: Saftey Anxieties, Fears or Concerns: Safety Goal: Absence of Hospital-Acquired Illness or Injury Outcome: Adequate for Care Transition Intervention: Identify and Manage Fall Risk Flowsheets (Taken 09/07/2025 0600 by Sparkle Guerrero, FILIBERTO) Safety Promotion/Fall Prevention: activity supervised safety round/check completed Goal: Optimal Comfort and Wellbeing Outcome: Adequate for Care Transition Intervention: Provide Person-Centered Care Flowsheets (Taken 09/07/2025 1013) Trust Relationship/Rapport: care explained Problem: Skin Injury Risk Increased Goal: Skin Health and Integrity Outcome: Adequate for Care Transition Intervention: Optimize Skin Protection Flowsheets Taken 09/07/2025 09 by Marley Almonte RN Activity Management: back to bed Head of Bed (HOB) Positioning: HOB at 30-45 degrees Taken 09/06/2025 024 by Sparkle Guerrero RN Pressure Reduction Devices: alternating pressure pump (KALLI) positioning supports utilized pressure-redistributing mattress utilized Problem: Fall Injury Risk Goal: Absence of Fall and Fall-Related Injury Outcome: Adequate for Care Transition Intervention: Identify and Manage Contributors Flowsheets (Taken 09/07/2025 012 by Sparkle Guerrero, FILIBERTO) Medication Review/Management: medications reviewed Self-Care Promotion: independence encouraged BADL personal objects within reach Problem: Infection Goal: Absence of Infection Signs and Symptoms Outcome: Adequate for Care Transition Intervention: Prevent or Manage Infection Flowsheets Taken 09/07/2025 07 by Marley Almonte RN Isolation Precautions: protective precautions maintained Taken 09/07/2025 012 by Sparkle Guerrero RN Fever Reduction/Comfort Measures: lightweight clothing lightweight bedding Taken 09/06/2025 024 by Sparkle Guerrero RN Infection Management: aseptic technique maintained Problem: Mobility Impairment Goal: Optimal Mobility Outcome: Adequate for Care Transition Intervention: Optimize Mobility Flowsheets Taken 09/07/2025 09 by Marley Almonte RN Activity Management: back to bed Assistive Device Utilized: front wheel walker Taken 09/06/2025 024 by Sparkle Guerrero RN Positioning/Transfer Devices: repositioning sheet pillows Problem: Orthopaedic Fracture Goal: Absence of Bleeding Outcome: Adequate for Care Transition Goal: Bowel Elimination Outcome: Adequate for Care Transition Goal: Absence of Embolism Signs and Symptoms Outcome: Adequate for Care Transition Goal: Fracture Stability Outcome: Adequate for Care Transition Goal: Optimal Functional Ability Outcome: Adequate for Care Transition Goal: Absence of Infection Signs and Symptoms Outcome: Adequate for Care Transition Intervention: Prevent or Manage Infection Flowsheets Taken 09/07/2025 07 by Marley Almonte RN Isolation Precautions: protective precautions maintained Taken 09/07/2025125 by Sparkle Guerrero RN Fever Reduction/Comfort Measures: lightweight clothing lightweight bedding Taken 09/06/2025240 by Sparkle Guerrero RN Infection Management: aseptic technique maintained Goal: Effective Tissue Perfusion Outcome: Adequate for Care Transition Goal: Optimal Pain Control and Function Outcome: Adequate for Care Transition Goal: Effective Oxygenation and Ventilation Outcome: Adequate for Care Transition Problem: Pain Acute Goal: Optimal Pain Control and Function Outcome: Adequate for Care Transition Intervention: Develop Pain Management Plan Flowsheets (Taken 09/07/2025125 by Sparkle Guerrero RN) Pain Management Interventions: position adjusted pillow support provided rest Problem: Self-Care Deficit Goal: Improved Ability to Complete Activities of Daily Living Outcome: Adequate for Care Transition Intervention: Promote Activity and Functional [place] Flowsheets Taken 09/07/2025 09 by Marley Almonte RN Activity Assistance Provided: assistance, 1 person Taken 09/07/2025125 by Spakrle Guerrero RN Self-Care Promotion: independence encouraged BADL personal objects within reach Taken 09/06/2025240 by Sparkle Guerrero RN Adaptive Equipment Use: use encouraged Problem: Mobility Impairment Goal: Optimal Mobility Outcome: Adequate for Care Transition Intervention: Optimize Mobility Flowsheets Taken 09/07/2025 09 by Marley Almonte RN Activity Management: back to bed Assistive Device Utilized: front wheel walker Taken 09/06/2025240 by Sparkle Guerrero RN Positioning/Transfer Devices: repositioning sheet pillows Problem: Surgery Nonspecified Goal: Absence of Bleeding Outcome: Adequate for Care Transition Goal: Effective Bowel Elimination Outcome: Adequate for Care Transition Goal: Fluid and Electrolyte Balance Outcome: Adequate for Care Transition Goal: Blood Glucose Level Within Target Range Outcome: Adequate for Care Transition Intervention: Optimize Glycemic Control Flowsheets (Taken 09/07/2025125 by Sparkle Guerrero RN) Hyperglycemia Management: blood glucose monitored Hypoglycemia Management: blood glucose monitored Goal: Absence of Infection Signs and Symptoms Outcome: Adequate for Care Transition Goal: Anesthesia/Sedation Recovery Outcome: Adequate for Care Transition Goal: Optimal Pain Control and Function Outcome: Adequate for Care Transition Goal: Nausea and Vomiting Relief Outcome: Adequate for Care Transition Goal: Effective Urinary Elimination Outcome: Adequate for Care Transition Goal: Effective Oxygenation and Ventilation Outcome: Adequate for Care Transition Problem: Glycemic Control Impaired Goal: Blood Glucose Level Within Target Range Outcome: Adequate for Care Transition Intervention: Optimize Glycemic Control Flowsheets (Taken 09/07/2025125 by Sparkle Guerrero, RN) Hyperglycemia Management: blood glucose monitored Goal: Minimize Hypoglycemia Risk Outcome: Adequate for Care Transition * Care Plan - Sparkle Guerrero RN - 09/07/2025 1:38 AM EST Problem: Adult Inpatient Plan of Care Goal: Plan of Care Review Outcome: Ongoing, Progressing Flowsheets (Taken 09/07/2025125) Progress: improving Plan of Care Reviewed With: patient Goal: Patient-Specific Goal (Individualized) Outcome: Ongoing, Progressing Flowsheets (Taken 09/06/20252006) Patient/Family-Specific Goals (Include Timeframe): pt will safe dueing this hospial stay. Individualized Care Needs: safety Anxieties, Fears or Concerns: safety Goal: Absence of Hospital-Acquired Illness or Injury Outcome: Ongoing, Progressing Intervention: Identify and Manage Fall Risk Flowsheets (Taken 09/07/2025125) Safety Promotion/Fall Prevention: activity supervised assistive device/personal items within reach clutter-free environment maintained fall prevention program maintained nonskid shoes/slippers when out of bed room organization consistent safety round/check completed toileting scheduled Goal: Optimal Comfort and Wellbeing Outcome: Ongoing, Progressing Intervention: Monitor Pain and Promote Comfort Flowsheets (Taken 09/07/2025125) Pain Management Interventions: position adjusted pillow support provided rest Problem: Skin Injury Risk Increased Goal: Skin Health and Integrity Outcome: Ongoing, Progressing Intervention: Optimize Skin Protection Flowsheets Taken 09/07/2025125 Skin Protection: incontinence pads utilized Taken 09/06/2025 220 Activity Management: activity adjusted per tolerance up to bedside commode Taken 09/06/2025 0241 Pressure Reduction Techniques: frequent weight shift encouraged heels elevated off bed positioned off wounds pressure points protected weight shift assistance provided Pressure Reduction Devices: alternating pressure pump (KALLI) positioning supports utilized pressure-redistributing mattress utilized Head of Bed (HOB) Positioning: HOB elevated Problem: Fall Injury Risk Goal: Absence of Fall and Fall-Related Injury Outcome: Ongoing, Progressing Intervention: Identify and Manage Contributors Flowsheets (Taken 09/07/2025125) Medication Review/Management: medications reviewed Self-Care Promotion: independence encouraged BADL personal objects within reach Problem: Infection Goal: Absence of Infection Signs and Symptoms Outcome: Ongoing, Progressing Intervention: Prevent or Manage Infection Flowsheets Taken 09/07/2025125 Fever Reduction/Comfort Measures: lightweight clothing lightweight bedding Taken 09/06/2025240 Infection Management: aseptic technique maintained Problem: Mobility Impairment Goal: Optimal Mobility Outcome: Ongoing, Progressing Intervention: Optimize Mobility Flowsheets Taken 09/07/2025125 Assistive Device Utilized: front wheel walker Taken 09/06/20252199 Activity Management: activity adjusted per tolerance up to bedside commode Taken 09/06/2025240 Positioning/Transfer Devices: repositioning sheet pillows Problem: Orthopaedic Fracture Goal: Absence of Bleeding Outcome: Ongoing, Progressing Intervention: Monitor and Manage Fracture Bleeding Flowsheets Taken 09/07/2025125 Bleeding Management: dressing monitored Taken 09/06/2025240 Fracture Immobilization: supported with pillows supported during position changes Goal: Bowel Elimination Outcome: Ongoing, Progressing Intervention: Promote Effective Bowel Elimination Flowsheets Taken 09/07/2025125 Bowel Elimination Promotion: adequate fluid intake promoted Taken 09/06/2025240 Bowel Elimination Management: relaxation techniques promoted toileting offered Goal: Absence of Embolism Signs and Symptoms Outcome: Ongoing, Progressing Intervention: Prevent or Manage Embolism Risk Flowsheets (Taken 09/06/20252006) VTE Prevention/Management: bilateral lower extremity SCDs (sequential compression devices) on medication Goal: Fracture Stability Outcome: Ongoing, Progressing Intervention: Promote Fracture Stability and Healing Flowsheets (Taken 09/06/2025240) Fracture Immobilization: supported with pillows supported during position changes Goal: Optimal Functional Ability Outcome: Ongoing, Progressing Intervention: Optimize Functional Ability Flowsheets Taken 09/07/2025125 Self-Care Promotion: independence encouraged BADL personal objects within reach Taken 09/06/20252199 Activity Management: activity adjusted per tolerance up to bedside commode Taken 09/06/2025240 Range of Motion: active ROM (range of motion) encouraged Positioning/Transfer Devices: repositioning sheet pillows Goal: Absence of Infection Signs and Symptoms Outcome: Ongoing, Progressing Intervention: Prevent or Manage Infection Flowsheets Taken 09/07/2025125 Fever Reduction/Comfort Measures: lightweight clothing lightweight bedding Taken 09/06/2025240 Infection Management: aseptic technique maintained Goal: Effective Tissue Perfusion Outcome: Ongoing, Progressing Goal: Optimal Pain Control and Function Outcome: Ongoing, Progressing Intervention: Manage Acute Orthopaedic-Related Pain Flowsheets Taken 09/07/2025125 Pain Management Interventions: position adjusted pillow support provided rest Taken 09/06/2025240 Sleep/Rest Enhancement: awakenings minimized relaxation techniques promoted Goal: Effective Oxygenation and Ventilation Outcome: Ongoing, Progressing Intervention: Promote Airway Secretion Clearance Flowsheets Taken 09/07/2025125 Breathing Techniques/Airway Clearance: deep/controlled cough encouraged Taken 09/06/20252199 Activity Management: activity adjusted per tolerance up to bedside commode Taken 09/06/20252006 Cough And Deep Breathing: done independently per patient Problem: Pain Acute Goal: Optimal Pain Control and Function Outcome: Ongoing, Progressing Intervention: Optimize Psychosocial Wellbeing Flowsheets Taken 09/07/2025125 Spiritual Activities Assistance: affirmation provided Taken 09/06/2025240 Supportive Measures: active listening utilized verbalization of feelings encouraged Diversional Activities: smartphone television Problem: Self-Care Deficit Goal: Improved Ability to Complete Activities of Daily Living Outcome: Ongoing, Progressing Intervention: Promote Activity and Functional [place] Flowsheets Taken 09/07/2025125 Activity Assistance Provided: assistance, stand-by Self-Care Promotion: independence encouraged BADL personal objects within reach Taken 09/06/2025240 Adaptive Equipment Use: use encouraged Problem: Surgery Nonspecified Goal: Absence of Bleeding Outcome: Ongoing, Progressing Intervention: Monitor and Manage Bleeding Flowsheets (Taken 09/07/2025125) Bleeding Management: dressing monitored Goal: Effective Bowel Elimination Outcome: Ongoing, Progressing Intervention: Enhance Bowel Motility and Elimination Flowsheets (Taken 09/06/2025240) Bowel Elimination Management: relaxation techniques promoted toileting offered Bowel Motility Enhancement: fluid intake encouraged Goal: Fluid and Electrolyte Balance Outcome: Ongoing, Progressing Intervention: Monitor and Manage Fluid and Electrolyte Balance Flowsheets (Taken 09/06/2025 024) Fluid/Electrolyte Management: fluids provided Goal: Blood Glucose Level Within Target Range Outcome: Ongoing, Progressing Intervention: Optimize Glycemic Control Flowsheets (Taken 09/07/2025125) Hyperglycemia Management: blood glucose monitored Hypoglycemia Management: blood glucose monitored Goal: Absence of Infection Signs and Symptoms Outcome: Ongoing, Progressing Intervention: Prevent or Manage Infection Flowsheets Taken 09/07/2025125 Fever Reduction/Comfort Measures: lightweight clothing lightweight bedding Taken 09/06/2025 024 Infection Management: aseptic technique maintained Goal: Anesthesia/Sedation Recovery Outcome: Ongoing, Progressing Intervention: Optimize Anesthesia Recovery Flowsheets (Taken 09/07/2025125) Safety Promotion/Fall Prevention: activity supervised assistive device/personal items within reach clutter-free environment maintained fall prevention program maintained nonskid shoes/slippers when out of bed room organization consistent safety round/check completed toileting scheduled Goal: Optimal Pain Control and Function Outcome: Ongoing, Progressing Intervention: Prevent or Manage Pain Flowsheets Taken 09/07/2025125 Pain Management Interventions: position adjusted pillow support provided rest Taken 09/06/2025 024 Diversional Activities: smartphone television Goal: Nausea and Vomiting Relief Outcome: Ongoing, Progressing Goal: Effective Urinary Elimination Outcome: Ongoing, Progressing Intervention: Monitor and Manage Urinary Retention Flowsheets (Taken 09/06/2025 024) Urinary Elimination Promotion: toileting scheduled Goal: Effective Oxygenation and Ventilation Outcome: Ongoing, Progressing Intervention: Optimize Oxygenation and Ventilation Flowsheets Taken 09/06/20252199 Activity Management: activity adjusted per tolerance up to bedside commode Taken 09/06/20252006 Cough And Deep Breathing: done independently per patient Taken 09/06/2025 024 Airway/Ventilation Management: airway patency maintained Head of Bed (HOB) Positioning: HOB elevated Problem: Glycemic Control Impaired Goal: Blood Glucose Level Within Target Range Outcome: Ongoing, Progressing Intervention: Optimize Glycemic Control Flowsheets (Taken 09/07/2025125) Hyperglycemia Management: blood glucose monitored Goal: Minimize Hypoglycemia Risk Outcome: Ongoing, Progressing Intervention: Minimize and Manage Hypoglycemia Flowsheets (Taken 09/07/2025125) Hypoglycemia Management: blood glucose monitored * Progress Notes - Bal Moncada - 09/06/2025 3:25 PM EST Physical Therapy Treatment Patient Name: Rachel Roger Today's Date: 09/06/2025 PT Discharge Recommendations: Subacute rehab Equipment Recommended: Defer to facility Subjective Patient agreeable to physical therapy. Participants in Care Family/Caregiver Present: Yes Family/Caregiver: Adult Son Compressed Air Pile Driver Operator: Not Applicable Presentation Oxygen Oxygen Therapy: None (Room air) Lines and Tubes Lines and Tubes: Intravenous access, Telemetry Pre-Session RN and patient gave consent for PT treatment session. Patient received Supine, Head of bed elevated, Lines intact, Bed alarm. RN agreeable to PT Session Post-Session Patient positioned for comfort and pressure relief at end of session, all needs met. Sitting in chair, Chair alarm, Lines intact, RN notified, Call light in reach. All needs met and within reach. Precautions Left Lower Extremity Weight Bearing Status: Weight Bearing as Tolerated Medical Precautions: Fall precautions Objective Pain Pain Score (0-10): not rated Location: left LE Intervention: position adjusted and pillow support provided RN aware and notified. Delirium Screening RASS: Alert and calm Confusion Assessment Method-ICU (CAM-ICU/PCAM-ICU) Feature 3: Altered Level of Consciousness: Negative Therapeutic Activity (38 minutes) Patient participated in therapeutic activities with emphasis on progressing functional mobility, functional strength, and activity tolerance. WASH OIL PUMP OPERATOR HELPER provided verbal and tactile cues to facilitate alternative movement patterns to improve technique due to increased pain and weakness associated with current mobility restrictions and functional deficits. Patient educated on safety awareness, energy conservation, getting up with nursing staff, and discharge recommendations. Refer to sections below for further details. Position/Activity BP Map Long sitting at rest 122/53 73 Sitting EOB 123/61 78 Standing by recliner chair 125/62 77 Sitting in chair at end of mobility 135/51 73 Patient denied dizziness or shortness of breath during session. Bed Mobility Bed Mobility Interventions: Provided cues for proper hand placement, BLE sequence off EOB, and trunk control upon sitting. Increased time required to complete bed mobility. Bed Mobility Exam: Rolling/Turning Level of [place]: Minimum assist (75% patient effort) Physical/Nonphysical Assist: Verbal Cues, Minimal cues Assistive Device: Bed rails Bed Mobility Exam: Scooting/Bridging Level of [place]: Minimum assist (75% patient's effort) Physical/Nonphysical Assist: Verbal Cues, Minimal cues Assistive Device: Bed rails Bed Mobility Exam: Supine to Sit Level of [place]: Minimum assist (75% patient's effort) Physical/Nonphysical Assist: Verbal Cues, Minimal cues, HOB elevated Assistive Device: Bed rails Transfers Transfer Interventions: Patient performed 4 reps of sit to/from stand from different surface levels. Provided cues for proper hand placement, BLE set-up, forward trunk leans to initiate coming to stand, and safe descent to sit. Transfer Exam: Sit to stand Level of [place]: Minimum assist (75% patient's effort) Physical/Nonphysical Assist: Verbal Cues, Set-up required, Moderate cues, Nonverbal cues (demo/gestures) Assistive Device: Walker, rolling Transfer Exam: Stand to Sit Level of [place]: Minimum assist (75% patient's effort) Physical/Nonphysical Assist: Verbal Cues, Set-up required, Nonverbal cues (demo/gestures), Moderatecues Assistive Device: Walker, rolling Toilet Transfer Level of [place]: Minimum assist (75% patient's effort) Physical/Nonphysical Assist: Verbal Cues, Moderate cues, Set-up required, Nonverbal cues (demo/gestures) Type of Transfer: Ambulation, To toilet Assistive Device: Walker, rolling, Grab bar Ambulation Device: Rolling walker Apparatus: Chair follow Assistance: Minimum assistance, Moderate verbal cues, Moderate tactile cues Distance : 5 feet to chair, seated rest break, 15 feet in hallway, seated rest break, 5 feet to toilet, toileting, 3 feet back to chair Ambulation Comments: Demonstrated slow pace, antalgic gait, decrease stance time on LLE, decrease left foot clearance, downward gaze; distance limited by pain and fatigue. Cues for upright posture, reciprocal gait, foot clearance, and self pace. Educated patient on safety and energy conservation. Balance Postural Appearance Posture: Within Functional Limits Static Sitting Balance Static Sitting-Balance Support: Right upper extremity support, Left upper extremity support Static Sitting-Level of Assistance: Contact guard Dynamic Sitting Balance Dynamic Sitting-Balance Support: Right upper extremity support, Left upper extremity support Dynamic Sitting-Balance: Lateral weight shifts, Anterior/Posterior weight shifts Level of Assistance: Minimum assistance Static Standing Balance Static Standing-Balance Support: Right upper extremity support, Left upper extremity support Static Standing-Level of Assistance: Contact guard Static Standing - Interventions: with RW Dynamic Standing Balance Dynamic Standing-Balance Support: Right upper extremity support, Left upper extremity support Dynamic Standing-Balance: Lateral weight shifts, Anterior/Posterior weight shifts Dynamic Standing Level of Assistance: Minimum assistance Participation in Functional Tasks: Minimum assistance Therapeutic Exercise (15 minutes) Patient participated in bilateral LE exercises while sitting unsupported EOB and sitting supported in chair to address ROM, strength, muscular endurance and activity tolerance and assist in overall functional mobility performance. Patient performed ankle pumps, quad sets, gluteal sets, hip abduction/adduction, hip flexion (marching), and long arc quads with AROM x 10 reps each. Patient provided with cueing for proper return of demonstration of exercises. Assessment Patient making steady progress with physical therapy. Patient able to improve ambulation distance and required less assistance for transfers compared to previous session. She fatigued easily with short ambulation and needed rest breaks throughout. At this time, patient remains a fall risk and wouldnot be safe to discharge home due to impaired balance, decrease functional strength, and unable to ambulate household distances independently. Prior to admission, patient was ambulating community distances independently without a device. Based on current presentation, patient would benefit from subacute rehab placement to continue improving on the following impairments: gait, functional mobility, functional strength, balance, and activity tolerance. She would continue to benefit from further skilled PT services during remainder of hospitalization to address deficits and promote maximal functional independence. PT Recommendations Discharge Destination: Subacute rehab Discharge Equipment: Defer to facility Plan Continue current plan of care. PT Goals PT GOAL DETAILS Goal Established Date Time Frame Goal Status PT Goal 1: Patient will ambulate greater than or equal to 50 feet with AAD, modified independent. 09/05/25 2 weeks PT Goal 2: Patient will be independent with HEP. 09/05/25 2 weeks PT Goal 3: Patient will be educated regarding discharge recommendations. 09/05/25 2 weeks PT Goal 4: Patient will perform all transfers modified independent with AAD. 09/05/25 2 weeks PT Goal 5: Patient will be OOBTC greater than or equal to one hour. 09/05/25 2 weeks Written by Bal Moncada on 09/06/25 at 3:55 PM. * Care Plan - Halley Jaimes RN - 09/06/2025 3:03 PM EST Problem: Adult Inpatient Plan of Care Goal: Plan of Care Review Outcome: Ongoing, Progressing Flowsheets (Taken 09/06/2025 145) Progress: improving Outcome Evaluation: Patient received 1 unit of PRBC and bolus. Plan of Care Reviewed With: patient Goal: Patient-Specific Goal (Individualized) Outcome: Ongoing, Progressing Flowsheets (Taken 09/06/2025 0800) Patient/Family-Specific Goals (Include Timeframe): Patient will report a tolerable pain level during hospital stay. Individualized Care Needs: Pain Anxieties, Fears or Concerns: Pain Goal: Absence of Hospital-Acquired Illness or Injury Outcome: Ongoing, Progressing Intervention: Identify and Manage Fall Risk Flowsheets (Taken 09/06/2025 145) Safety Promotion/Fall Prevention: activity supervised clutter-free environment maintained assistive device/personal items within reach fall prevention program maintained Intervention: Prevent and Manage VTE (Venous Thromboembolism) Risk Flowsheets (Taken 09/06/2025 145) VTE Prevention/Management: bilateral lower extremity SCDs (sequential compression devices) on Goal: Optimal Comfort and Wellbeing Outcome: Ongoing, Progressing Intervention: Monitor Pain and Promote Comfort Flowsheets (Taken 09/06/2025 145) Pain Management Interventions: care clustered emotional support Problem: Skin Injury Risk Increased Goal: Skin Health and Integrity Outcome: Ongoing, Progressing Intervention: Optimize Skin Protection Flowsheets (Taken 09/06/2025 145) Activity Management: activity adjusted per tolerance activity encouraged Problem: Fall Injury Risk Goal: Absence of Fall and Fall-Related Injury Outcome: Ongoing, Progressing Intervention: Identify and Manage Contributors Flowsheets (Taken 09/06/2025 145) Medication Review/Management: medications reviewed Self-Care Promotion: BADL personal objects within reach Problem: Infection Goal: Absence of Infection Signs and Symptoms Outcome: Ongoing, Progressing Intervention: Prevent or Manage Infection Flowsheets (Taken 09/06/2025 145) Fever Reduction/Comfort Measures: lightweight bedding lightweight clothing Problem: Mobility Impairment Goal: Optimal Mobility Outcome: Ongoing, Progressing Intervention: Optimize Mobility Flowsheets (Taken 09/06/2025 145) Activity Management: activity adjusted per tolerance activity encouraged Problem: Mobility Impairment Goal: Optimal Mobility Outcome: Ongoing, Progressing Intervention: Optimize Mobility Flowsheets (Taken 09/06/2025 145) Activity Management: activity adjusted per tolerance activity encouraged Problem: Orthopaedic Fracture Goal: Absence of Bleeding Outcome: Ongoing, Progressing Intervention: Monitor and Manage Fracture Bleeding Flowsheets (Taken 09/06/20251452) Bleeding Management: dressing monitored Goal: Bowel Elimination Outcome: Ongoing, Progressing Goal: Absence of Embolism Signs and Symptoms Outcome: Ongoing, Progressing Intervention: Prevent or Manage Embolism Risk Flowsheets (Taken 09/06/20251452) VTE Prevention/Management: bilateral lower extremity SCDs (sequential compression devices) on Goal: Fracture Stability Outcome: Ongoing, Progressing Goal: Optimal Functional Ability Outcome: Ongoing, Progressing Goal: Absence of Infection Signs and Symptoms Outcome: Ongoing, Progressing Goal: Effective Tissue Perfusion Outcome: Ongoing, Progressing Goal: Optimal Pain Control and Function Outcome: Ongoing, Progressing Intervention: Manage Acute Orthopaedic-Related Pain Flowsheets (Taken 09/06/20251452) Pain Management Interventions: care clustered emotional support Goal: Effective Oxygenation and Ventilation Outcome: Ongoing, Progressing Problem: Pain Acute Goal: Optimal Pain Control and Function Outcome: Ongoing, Progressing Intervention: Optimize Psychosocial Wellbeing Flowsheets (Taken 09/06/20251452) Spiritual Activities Assistance: affirmation provided Problem: Self-Care Deficit Goal: Improved Ability to Complete Activities of Daily Living Outcome: Ongoing, Progressing Intervention: Promote Activity and Functional [place] Flowsheets (Taken 09/06/20251452) Activity Assistance Provided: assistance, stand-by Self-Care Promotion: BADL personal objects within reach Problem: Surgery Nonspecified Goal: Absence of Bleeding Outcome: Ongoing, Progressing Intervention: Monitor and Manage Bleeding Flowsheets (Taken 09/06/20251452) Bleeding Management: dressing monitored Goal: Effective Bowel Elimination Outcome: Ongoing, Progressing Goal: Fluid and Electrolyte Balance Outcome: Ongoing, Progressing Goal: Blood Glucose Level Within Target Range Outcome: Ongoing, Progressing Goal: Absence of Infection Signs and Symptoms Outcome: Ongoing, Progressing Goal: Anesthesia/Sedation Recovery Outcome: Ongoing, Progressing Goal: Optimal Pain Control and Function Outcome: Ongoing, Progressing Goal: Nausea and Vomiting Relief Outcome: Ongoing, Progressing Goal: Effective Urinary Elimination Outcome: Ongoing, Progressing Goal: Effective Oxygenation and Ventilation Outcome: Ongoing, Progressing Problem: Glycemic Control Impaired Goal: Blood Glucose Level Within Target Range Outcome: Ongoing, Progressing Intervention: Optimize Glycemic Control Flowsheets (Taken 09/06/20251452) Hyperglycemia Management: blood glucose monitored Goal: Minimize Hypoglycemia Risk Outcome: Ongoing, Progressing Intervention: Minimize and Manage Hypoglycemia Flowsheets (Taken 09/06/20251452) Hypoglycemia Management: blood glucose monitored * Clinician Note - Bal Moncada - 09/06/2025 12:30 PM EST Physical Therapy Attempt Patient Name: Rachel Roger Today's Date: 09/06/2025 Patient was attempted to be seen by physical therapy 09/06/2025 for PT Treatment however RN deferredsession (patient receiving a unit of blood, Hgb 6.5). Physical therapy team will follow-up when medically appropriate. Written by Bal Moncada on 09/06/25 at 12:35 PM. * Progress Notes - Adele Wu RN - 09/06/2025 11:09 AM EST Case Management Adult Progress Note Rachel Roger 85 y.o. female CSN: [id number] Admission: 09/03/2025 6:27 AM Primary Problem: Displaced intertrochanteric fracture of left femur, initial encounter for closed fracture Anticipated Discharge Date: 09/07 Per primary provider, pt is not medically ready. Pt received 1 unit PRBC today. Provider also wantsto monitor electrolytes. Anticipate being medically ready in 24 hours. Pt has been accepted by [facility] and insurance has already been approved. Adele Wu RN * Progress Notes - Pita Muhammad MD - 09/06/2025 7:04 AM EST Images from the original note were not included. GME Progress Note Hospital Day: 3 09/06/25 Subjective Brief Patient Summary: 85 y.o. female with a PMHx of Aortic Stenosis s/p TAVR 01/19/2022 with a 23mm Shannon valve, CAD s/pPCI to ostial/mid LAD in 2016, hx of PFO seen on bubble study in 2007, SAH in 2007, HTN, HLD, T2DM not on insulin, NARAYAN, depression, memory loss, and hypothyroidism who presents with proximal left femur fracture after sustaining a ground level fall. Now s/p L intertrochanteric femur fracture cephalomedullary nail on 09/04/25. Evaluated this morning and appeared somewhat lethargic compared to known baseline.Describes some pain around incision site. Otherwise no acute concerns. Objective Objective Last Recorded Vitals Blood pressure 118/62, pulse 60, temperature 36.6 ??C (97.9 ??F), resp. rate 11, height 1.575 m (5'2 ), weight 50.5 kg (111 lb 5.3 oz), SpO2 95%. Physical Exam Physical Exam: General: appears stated age, no apparent distress HEENT: anicteric sclera, no conjunctival drainage CV: normal rate with regular rhythm, no appreciable MRG, no LE edema Resp: no appreciable wheezes/crackles, nonlabored breathing on RA GI: soft, no TTP, nondistended Neuro: awake and alert, no gross deficits Psych: appropriate mood with congruent affect, cooperative during exam Data: I have personally reviewed the following labs and used them to guide clinical decision making. CBC WBC 5.69 Hb 6.5 (L) Plt 58 (L) Hct 19.5 (L) ANC ?? INR ??, PTT ??, Anti-Xa ?? BMP Na 123 (L) Cl 95 (L) BUN 47 (H) Glu 90 K 4.9 Co2 20 (L) Cr 2.84 (H) Ca 7.5 (L) iCa ?? Mg ??, Phos 2.6 Lactate ?? LFT AST ?? AlkPhos ?? T Prot ?? ALK ?? Bili ?? Alb ?? D.Bili ?? Imaging: No new imaging to review today Assessment/Plan Assessment & Plan Principal Problem: Displaced intertrochanteric fracture of left femur, initial encounter for closed fracture Active Problems: Osteoporosis with current pathological fracture Rachel Roger is a 85 y.o. female with PMH as per above who presents with acute left femur fracture after ground level mechanical fall in her kitchen. Acute Conditions: #Left Intertrochanteric Femur Fracture - Mechanism: Mechanical - Orthopedic surgery consulted: yes and s/p OR on 09/04/25 s/p L intertrochanteric femur fracture cephalomedullary nail. - CT Bony Pelvis: Acute comminuted angulated intertrochanteric left femur fracture. Degenerative changes and demineralization as described. Cummings hyperdense structure in the region of the right renal pelvis which was present on prior radiograph and may represent a large renal calculus. 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 - unclear baseline but last recorded in our system is from 01/20/2022 showing Cr of 1.01 - Cr at admission is 3.17, had Cr of 2.17 at her last PCP visit on 08/24/25 with eGFR of 22 - recent UTI with bactrim prescribed which could directly result in kidney injury - pt notes was down for approx 4hrs at home after fall - no signs of ATN on UA - CK level elevated in 800s - cystatin C of 2.09, likely this is closer to her baseline Cr levels - Cr stable at 3.15 Plan: - trend Cr on morning labs - hold Lomotil as could be causing drug induced injury - encourage PO intake, IVF if needed #Disorder of Fluids and Electrolytes with Hyperkalemia and Hyponatremia - etiology is likely from ASHLEY vs progression of CKD in combination with poor PO intak - now s/p 2 rounds of HyperK protocol PLAN: - trend electrolytes on morning labs - repeat fluids today for hyponatremia - lokelma (along with aggressive bowel regimen #AOCD c/b Acute Blood Loss Anemia after Surgery #Thrombocytopenia - platelets on admission of 79k with baseline of 130 days prior to admission - HgB of 9.1 on admission with baseline of 10.8 - ferritin elevated and iron decreased on labs - retic count absolute decreased - thrombocytopenia possibly 2/2 folate deficiency vs MDS (T4 score not severe) PLAN: - trend Hgb and platelets daily - folic acid supplemetation for 1 week - if Hgb < 7 will need transfusion - if platelets <10k or if <50k with acute bleed will need transfusion #grade 1 diastolic dysfunction - echo obtained: EF of 62% and shows grade 1 diastolic dysfunction, prosthetic aortic valve is appropriate Plan: - PCP to f/u outpatient #Bone Mineral Disease with Hyperparathyroidism likely Secondary to Vitamin D deficiency - restart replacement; 2k units daily vit D Chronic Conditions: #CAD: continue ASA, last cath in 2020 showed patent stent; holding imdur resume morning of 09/06 #HTN: home coreg #T2DM: pt notes controlled with diet, will utilize SSI; hold jardiance #Memory loss with mild cognitive impairment: on memantidine #Hyperlipidemia: resumed home atorvastatin #Depression with anxiety: resumed home lexapro #Hypothyroidism: resumed home synthroid #Irritable bowel syndrome with diarrhea: will hold Lomotil - could be contributing to her kidney injury/dysfunction #PFO: seen on bubble study in 2007 #SAH: occurred in 2007 #NARAYAN: does not admit to cpap at home #Hx of TIA Code Status: Full code DVT ppx: pLOV 12hrs post op Diet: cardiac Dispo: [facility] Please note that all recommendations should be considered preliminary until this note is cosigned by the attending physician. Patient was seen and plan discussed with Dr. Barros. Pita Muhammad PGY-2 Internal Medicine 09/06/2025 Cosigned by Renu Barros MD at 09/06/2025 10:14 PM EST Associated attestation - Renu Barros MD - 09/06/2025 10:14 PM EST I saw and evaluated the patient. I discussed the case with the resident/fellow and agree with the findings and plan as documented. * Progress Notes - Vianey Perry MD - 09/06/2025 3:03 AM EST Orthopaedic Trauma Surgery Progress Note 09/06/25 Subjective: NAEON. Doing well. Pain controlled. Patient is POD2 s/p L intertrochanteric femur fracture cephalomedullary nail. She states that her left hip pain is mostly around her incision sites. Discussed withher that PTOT recommended subacute rehab so her primary team will work on getting her a bed at a rehab facility, patient agreeable. Objective: Vitals: 09/05/25 2331 BP: 96/51 Pulse: 57 Resp: Temp: 36.5 ??C (97.7 ??F) SpO2: 96% Physical Examination: No acute distress Non labored breathing Peripheral perfusion intact Focused Musculoskeletal Examination: LLE Surgical dressings c/d/i Sensation to light touch intact to all terminal nerve distributions Dorsiflexion/plantarflexion, EHL/FHL motor intact 2+ palpable DP pulse, toes WWP Data: Labs in last 18 hours: CBC WBC ?? Hb ?? Plt ?? Hct ?? INR ??, PTT ??, Anti-Xa ?? BMP Na ?? Cl ?? BUN ?? Glu ?? K 4.8 Co2 ?? Cr ?? Lactate ?? Assessment & Plan: Rachel Roger is a 85 y.o. female patient with the following orthopedic injuries: - L IT fx s/p CMN (09/04) - DVT prophylaxis: per primary - Pain control: MMPC - PT/OT recommendations: rec Subacute Rehab - Disposition: pending placement, will see patient in clinic on 09/20 for wound check Mobility Orders Mobility Protocol: Ortho/Trauma/Spine Mobility Guidelines Spinal Precautions: No cranial, cervical or thoracolumbar spinal precautions necessary Extremity Precautions: Extremity Precautions Extremity: LLE Mobility Restrictions (LLE): Weight bear as tolerated (WBAT) Type of Brace (LLE): None Other mobility precautions: No other precautions required Vianey Perry MD Orthopedic Surgery PGY-1 [facility] Cosigned by Jose Antonio Hernández MD at 09/07/2025 8:47 AM EST * Care Plan - Sparkle Guerrero RN - 09/06/2025 2:53 AM EST Problem: Adult Inpatient Plan of Care Goal: Plan of Care Review Outcome: Ongoing, Progressing Flowsheets (Taken 09/06/2025 0241) Progress: improving Plan of Care Reviewed With: patient Goal: Patient-Specific Goal (Individualized) Outcome: Ongoing, Progressing Flowsheets (Taken 09/05/20251929) Patient/Family-Specific Goals (Include Timeframe): Patient will report a tolerable pain level during hospital stay. Individualized Care Needs: Pain Anxieties, Fears or Concerns: Pain Goal: Absence of Hospital-Acquired Illness or Injury Outcome: Ongoing, Progressing Intervention: Identify and Manage Fall Risk Flowsheets (Taken 09/06/2025240) Safety Promotion/Fall Prevention: activity supervised clutter-free environment maintained fall prevention program maintained lighting adjusted nonskid shoes/slippers when out of bed room organization consistent safety round/check completed toileting scheduled Goal: Optimal Comfort and Wellbeing Outcome: Ongoing, Progressing Intervention: Monitor Pain and Promote Comfort Flowsheets (Taken 09/06/2025240) Pain Management Interventions: pillow support provided position adjusted Problem: Skin Injury Risk Increased Goal: Skin Health and Integrity Outcome: Ongoing, Progressing Intervention: Optimize Skin Protection Flowsheets Taken 09/06/2025240 Pressure Reduction Techniques: frequent weight shift encouraged heels elevated off bed positioned off wounds pressure points protected weight shift assistance provided Pressure Reduction Devices: alternating pressure pump (KALLI) positioning supports utilized pressure-redistributing mattress utilized Skin Protection: pulse oximeter probe site changed skin sealant/moisture barrier applied incontinence pads utilized Head of Bed (HOB) Positioning: HOB elevated Taken 09/05/20251929 Activity Management: activity adjusted per tolerance Problem: Fall Injury Risk Goal: Absence of Fall and Fall-Related Injury Outcome: Ongoing, Progressing Intervention: Identify and Manage Contributors Flowsheets (Taken 09/06/2025240) Medication Review/Management: medications reviewed Self-Care Promotion: independence encouraged BADL personal objects within reach Problem: Infection Goal: Absence of Infection Signs and Symptoms Outcome: Ongoing, Progressing Intervention: Prevent or Manage Infection Flowsheets (Taken 09/06/2025240) Infection Management: aseptic technique maintained Fever Reduction/Comfort Measures: lightweight bedding lightweight clothing Problem: Mobility Impairment Goal: Optimal Mobility Outcome: Ongoing, Progressing Intervention: Optimize Mobility Flowsheets Taken 09/06/2025240 Positioning/Transfer Devices: repositioning sheet pillows Taken 09/05/20251929 Activity Management: activity adjusted per tolerance Problem: Mobility Impairment Goal: Optimal Mobility Outcome: Ongoing, Progressing Intervention: Optimize Mobility Flowsheets Taken 09/06/2025 0241 Positioning/Transfer Devices: repositioning sheet pillows Taken 09/05/20251929 Activity Management: activity adjusted per tolerance Problem: Orthopaedic Fracture Goal: Absence of Bleeding Outcome: Ongoing, Progressing Intervention: Monitor and Manage Fracture Bleeding Flowsheets (Taken 09/06/2025240) Fracture Immobilization: supported with pillows supported during position changes Bleeding Management: dressing monitored Goal: Bowel Elimination Outcome: Ongoing, Progressing Intervention: Promote Effective Bowel Elimination Flowsheets (Taken 09/06/2025240) Bowel Elimination Management: relaxation techniques promoted toileting offered Goal: Absence of Embolism Signs and Symptoms Outcome: Ongoing, Progressing Intervention: Prevent or Manage Embolism Risk Flowsheets (Taken 09/05/20251929) VTE Prevention/Management: right SCDs (sequential compression devices) on medication Goal: Fracture Stability Outcome: Ongoing, Progressing Intervention: Promote Fracture Stability and Healing Flowsheets (Taken 09/06/2025240) Fracture Immobilization: supported with pillows supported during position changes Goal: Optimal Functional Ability Outcome: Ongoing, Progressing Intervention: Optimize Functional Ability Flowsheets Taken 09/06/2025240 Range of Motion: active ROM (range of motion) encouraged Positioning/Transfer Devices: repositioning sheet pillows Self-Care Promotion: independence encouraged BADL personal objects within reach Taken 09/05/20251929 Activity Management: activity adjusted per tolerance Goal: Absence of Infection Signs and Symptoms Outcome: Ongoing, Progressing Intervention: Prevent or Manage Infection Flowsheets (Taken 09/06/2025240) Infection Management: aseptic technique maintained Fever Reduction/Comfort Measures: lightweight bedding lightweight clothing Goal: Effective Tissue Perfusion Outcome: Ongoing, Progressing Goal: Optimal Pain Control and Function Outcome: Ongoing, Progressing Intervention: Manage Acute Orthopaedic-Related Pain Flowsheets (Taken 09/06/2025240) Pain Management Interventions: pillow support provided position adjusted Sleep/Rest Enhancement: awakenings minimized relaxation techniques promoted Goal: Effective Oxygenation and Ventilation Outcome: Ongoing, Progressing Intervention: Promote Airway Secretion Clearance Flowsheets Taken 09/06/2025240 Breathing Techniques/Airway Clearance: deep/controlled cough encouraged Cough And Deep Breathing: done independently per patient Taken 09/05/20251929 Activity Management: activity adjusted per tolerance Problem: Pain Acute Goal: Optimal Pain Control and Function Outcome: Ongoing, Progressing Intervention: Optimize Psychosocial Wellbeing Flowsheets (Taken 09/06/2025240) Supportive Measures: active listening utilized verbalization of feelings encouraged Diversional Activities: smartphone television Spiritual Activities Assistance: affirmation provided Problem: Self-Care Deficit Goal: Improved Ability to Complete Activities of Daily Living Outcome: Ongoing, Progressing Intervention: Promote Activity and Functional [place] Flowsheets (Taken 09/06/2025240) Activity Assistance Provided: assistance, 2 people Adaptive Equipment Use: use encouraged Self-Care Promotion: independence encouraged BADL personal objects within reach Problem: Surgery Nonspecified Goal: Absence of Bleeding Outcome: Ongoing, Progressing Intervention: Monitor and Manage Bleeding Flowsheets (Taken 09/06/2025240) Bleeding Management: dressing monitored Goal: Effective Bowel Elimination Outcome: Ongoing, Progressing Intervention: Enhance Bowel Motility and Elimination Flowsheets (Taken 09/06/2025240) Bowel Elimination Management: relaxation techniques promoted toileting offered Bowel Motility Enhancement: fluid intake encouraged Goal: Fluid and Electrolyte Balance Outcome: Ongoing, Progressing Intervention: Monitor and Manage Fluid and Electrolyte Balance Flowsheets (Taken 09/06/2025240) Fluid/Electrolyte Management: fluids provided Goal: Blood Glucose Level Within Target Range Outcome: Ongoing, Progressing Intervention: Optimize Glycemic Control Flowsheets (Taken 09/06/2025240) Hyperglycemia Management: blood glucose monitored Hypoglycemia Management: blood glucose monitored Goal: Absence of Infection Signs and Symptoms Outcome: Ongoing, Progressing Intervention: Prevent or Manage Infection Flowsheets (Taken 09/06/2025240) Infection Management: aseptic technique maintained Fever Reduction/Comfort Measures: lightweight bedding lightweight clothing Goal: Anesthesia/Sedation Recovery Outcome: Ongoing, Progressing Intervention: Optimize Anesthesia Recovery Flowsheets (Taken 09/06/2025240) Safety Promotion/Fall Prevention: activity supervised clutter-free environment maintained fall prevention program maintained lighting adjusted nonskid shoes/slippers when out of bed room organization consistent safety round/check completed toileting scheduled Goal: Optimal Pain Control and Function Outcome: Ongoing, Progressing Intervention: Prevent or Manage Pain Flowsheets (Taken 09/06/2025240) Pain Management Interventions: pillow support provided position adjusted Diversional Activities: smartphone television Goal: Nausea and Vomiting Relief Outcome: Ongoing, Progressing Goal: Effective Urinary Elimination Outcome: Ongoing, Progressing Intervention: Monitor and Manage Urinary Retention Flowsheets (Taken 09/06/2025240) Urinary Elimination Promotion: toileting scheduled Goal: Effective Oxygenation and Ventilation Outcome: Ongoing, Progressing Intervention: Optimize Oxygenation and Ventilation Flowsheets Taken 09/06/2025 0241 Airway/Ventilation Management: airway patency maintained Head of Bed (HOB) Positioning: HOB elevated Cough And Deep Breathing: done independently per patient Taken 09/05/2025 1930 Activity Management: activity adjusted per tolerance Problem: Glycemic Control Impaired Goal: Blood Glucose Level Within Target Range Intervention: Optimize Glycemic Control Flowsheets (Taken 09/06/2025 0241) Hyperglycemia Management: blood glucose monitored Goal: Minimize Hypoglycemia Risk Intervention: Minimize and Manage Hypoglycemia Flowsheets (Taken 09/06/2025 0241) Hypoglycemia Management: blood glucose monitored * Care Plan - Halley Jaimes RN - 09/05/2025 12:32 PM EST Problem: Adult Inpatient Plan of Care Goal: Plan of Care Review Outcome: Ongoing, Progressing Flowsheets (Taken 09/05/2025 1230) Progress: improving Outcome Evaluation: Patient worked with PT. Hyperkalemia treated and K+ within normal limits now. IVF ordered. Plan of Care Reviewed With: patient Goal: Patient-Specific Goal (Individualized) Outcome: Ongoing, Progressing Flowsheets (Taken 09/05/2025 0800) Patient/Family-Specific Goals (Include Timeframe): Patient will report a tolerable pain level during hospital stay. Individualized Care Needs: Pain Anxieties, Fears or Concerns: Pain Goal: Absence of Hospital-Acquired Illness or Injury Outcome: Ongoing, Progressing Intervention: Identify and Manage Fall Risk Flowsheets (Taken 09/05/2025 1230) Safety Promotion/Fall Prevention: activity supervised clutter-free environment maintained fall prevention program maintained Intervention: Prevent Skin Injury Flowsheets (Taken 09/05/2025 1230) Body Position: neutral body alignment Goal: Optimal Comfort and Wellbeing Outcome: Ongoing, Progressing Intervention: Monitor Pain and Promote Comfort Flowsheets (Taken 09/05/2025 1230) Pain Management Interventions: care clustered [id number] dosing utilized Problem: Skin Injury Risk Increased Goal: Skin Health and Integrity Outcome: Ongoing, Progressing Intervention: Optimize Skin Protection Flowsheets (Taken 09/05/2025 1230) Activity Management: activity adjusted per tolerance Problem: Fall Injury Risk Goal: Absence of Fall and Fall-Related Injury Outcome: Ongoing, Progressing Intervention: Identify and Manage Contributors Flowsheets (Taken 09/05/2025 1230) Medication Review/Management: medications reviewed Problem: Infection Goal: Absence of Infection Signs and Symptoms Outcome: Ongoing, Progressing Intervention: Prevent or Manage Infection Flowsheets (Taken 09/05/2025 1230) Fever Reduction/Comfort Measures: lightweight bedding lightweight clothing Problem: Mobility Impairment Goal: Optimal Mobility Outcome: Ongoing, Progressing Intervention: Optimize Mobility Flowsheets (Taken 09/05/2025 1230) Activity Management: activity adjusted per tolerance Problem: Mobility Impairment Goal: Optimal Mobility Outcome: Ongoing, Progressing Intervention: Optimize Mobility Flowsheets (Taken 09/05/2025 1230) Activity Management: activity adjusted per tolerance Problem: Orthopaedic Fracture Goal: Absence of Bleeding Outcome: Ongoing, Progressing Intervention: Monitor and Manage Fracture Bleeding Flowsheets (Taken 09/05/2025 1230) Bleeding Management: dressing monitored Goal: Bowel Elimination Outcome: Ongoing, Progressing Goal: Absence of Embolism Signs and Symptoms Outcome: Ongoing, Progressing Goal: Fracture Stability Outcome: Ongoing, Progressing Goal: Optimal Functional Ability Outcome: Ongoing, Progressing Goal: Absence of Infection Signs and Symptoms Outcome: Ongoing, Progressing Goal: Effective Tissue Perfusion Outcome: Ongoing, Progressing Goal: Optimal Pain Control and Function Outcome: Ongoing, Progressing Intervention: Manage Acute Orthopaedic-Related Pain Flowsheets (Taken 09/05/2025 1230) Pain Management Interventions: care clustered [id number] dosing utilized Goal: Effective Oxygenation and Ventilation Outcome: Ongoing, Progressing Problem: Pain Acute Goal: Optimal Pain Control and Function Outcome: Ongoing, Progressing Intervention: Optimize Psychosocial Wellbeing Flowsheets (Taken 09/05/2025 1230) Supportive Measures: active listening utilized Intervention: Develop Pain Management Plan Flowsheets (Taken 09/05/2025 1230) Pain Management Interventions: care clustered [id number] dosing utilized Problem: Self-Care Deficit Goal: Improved Ability to Complete Activities of Daily Living Outcome: Ongoing, Progressing Intervention: Promote Activity and Functional [place] Flowsheets (Taken 09/05/2025 1230) Activity Assistance Provided: assistance, 1 person assistance, 2 people * Progress Notes - Audelia Roca DO - 09/05/2025 12:04 PM EST Images from the original note were not included. GME Progress Note Hospital Day: 2 09/05/25 Subjective Brief Patient Summary: 85 y.o. female with a PMHx of Aortic Stenosis s/p TAVR 01/19/2022 with a 23mm Shannon valve, CAD s/pPCI to ostial/mid LAD in 2016, hx of PFO seen on bubble study in 2007, SAH in 2007, HTN, HLD, T2DM not on insulin, NARAYAN, depression, memory loss, and hypothyroidism who presents with proximal left femur fracture after sustaining a ground level fall. Now s/p L intertrochanteric femur fracture cephalomedullary nail on 09/04/25 Past 24 Hours: - post op now with ortho on 09/04/25 - hgB decreased to 7.9 from post op bleeding but pt stable - no acute overnight events Today: - pt seen and evaluated at bedside - she has no new concerns; denied fevers, chills, soa, chest pain, or other modifying factors - she states her pain is well controlled and is satisfied with her surgery - she will be going to the OR today as the second case if potassium improves Objective Objective Last Recorded Vitals Blood pressure 109/57, pulse 58, temperature 36.4 ??C (97.5 ??F), resp. rate 12, height 1.575 m (5'2 ), weight 50.5 kg (111 lb 5.3 oz), SpO2 96%. Physical Exam Physical Exam: General: appears stated age, no apparent distress HEENT: anicteric sclera, no conjunctival drainage CV: normal rate with regular rhythm, no appreciable MRG, no LE edema Resp: no appreciable wheezes/crackles, nonlabored breathing on RA GI: soft, no TTP, nondistended Neuro: awake and alert, no gross deficits Psych: appropriate mood with congruent affect, cooperative during exam Data: I have personally reviewed the following labs and used them to guide clinical decision making. CBC WBC 7.60 Hb 7.9 (L) Plt 64 (L) Hct 23.4 (L) ANC ?? INR ??, PTT ??, Anti-Xa ?? BMP Na 127 (L) Cl 97 BUN 38 (H) Glu 125 (H) K 4.8 Co2 22 Cr 3.15 (H) Ca 7.6 (L) iCa ?? Mg ??, Phos ?? Lactate ?? LFT AST ?? AlkPhos ?? T Prot ?? ALK ?? Bili ?? Alb ?? D.Bili ?? Imaging: No new imaging to review today Assessment/Plan Assessment & Plan Principal Problem: Displaced intertrochanteric fracture of left femur, initial encounter for closed fracture Active Problems: Osteoporosis with current pathological fracture Rachel Roger is a 85 y.o. female with PMH as per above who presents with acute left femur fracture after ground level mechanical fall in her kitchen. Acute Conditions: #Left Intertrochanteric Femur Fracture - Mechanism: Mechanical - Orthopedic surgery consulted: yes and s/p OR on 09/04/25 s/p L intertrochanteric femur fracture cephalomedullary nail. - CT Bony Pelvis: Acute comminuted angulated intertrochanteric left femur fracture. Degenerative changes and demineralization as described. Cummings hyperdense structure in the region of the right renal pelvis which was present on prior radiograph and may represent a large renal calculus. - Pain control: APAP q6 scheduled & oxycodone q6 hours prn - Bowel regimen: miralax/senna - BMD labs sent, consulted: pending official BMD note - PT/OT: pending eval post op #Non-Oliguric Acute Kidney Injury iso of CKD4 - unclear baseline but last recorded in our system is from 01/20/2022 showing Cr of 1.01 - Cr at admission is 3.17, had Cr of 2.17 at her last PCP visit on 08/24/25 with eGFR of 22 - recent UTI with bactrim prescribed which could directly result in kidney injury - pt notes was down for approx 4hrs at home after fall - no signs of ATN on UA - CK level elevated in 800s - cystatin C of 2.09, likely this is closer to her baseline Cr levels - Cr stable at 3.15 Plan: - trend Cr on morning labs - hold Lomotil as could be causing drug induced injury - encourage PO intake, IVF if needed - gave 500cc NS bolus #Disorder of Fluids and Electrolytes with Hyperkalemia and Hyponatremia - etiology is likely from ASHLEY in combination with poor PO intak - now s/p 2 rounds of HyperK protocol - potassium elevated again after surgery to 5.8 PLAN: - trend electrolytes on morning labs - sodium expected to resolve with fluids and PO intake - hyperK protocol today and added lokelma #AOCD c/b Acute Blood Loss Anemia after Surgery #Thrombocytopenia - platelets on admission of 79k with baseline of 130 from 3yrs ago - HgB of 9.1 on admission with baseline of 10.8 - ferritin elevated and iron decreased on labs - retic count absolute decreased - HgB decreased to 7.8% after OR PLAN: - trend Hgb and platelets daily - if Hgb < 7 will need transfusion - if platelets <10k or if <50k with acute bleed will need transfusion #grade 1 diastolic dysfunction - echo obtained: EF of 62% and shows grade 1 diastolic dysfunction, prosthetic aortic valve is appropriate Plan: - PCP to f/u outpatient #Bone Mineral Disease with Hyperparathyroidism likely Secondary to Vitamin D deficiency - restart replacement today; 2k units daily vit D Chronic Conditions: #CAD: continue ASA, last cath in 2020 showed patent stent; holding imdur resume morning of 09/06 #HTN: home coreg #T2DM: pt notes controlled with diet, will utilize SSI; hold jardiance #Memory loss with mild cognitive impairment: on memantidine #Hyperlipidemia: resumed home atorvastatin #Depression with anxiety: resumed home lexapro #Hypothyroidism: resumed home synthroid #Irritable bowel syndrome with diarrhea: will hold Lomotil - could be contributing to her kidney injury/dysfunction #PFO: seen on bubble study in 2007 #SAH: occurred in 2007 #NARAYAN: does not admit to cpap at home #Hx of TIA Code Status: Full code DVT ppx: pLOV 112hrs post op Diet: cardiac Dispo: pending pt/ot recs Please note that all recommendations should be considered preliminary until this note is cosigned by the attending physician. Patient was seen and plan discussed with Dr. Barros. - Audelia Roca DO Internal Medicine PGY-2 Pager [phone]; Epic Chat preferred Cosigned by Renu Barros MD at 09/05/2025 7:56 PM EST Associated attestation - Renu Barros MD - 09/05/2025 7:56 PM EST I saw and evaluated the patient. I discussed the case with the resident/fellow and agree with the findings and plan as documented. * Progress Notes - Adele Wu RN - 09/05/2025 11:31 AM EST Case Management Adult Initial Progress Note Rachel Roger 85 y.o. female CSN: [id number] Admission: 09/03/2025 6:27 AM Primary Problem: Displaced intertrochanteric fracture of left femur, initial encounter for closed fracture Crib Clerk reviewed chart and spoke with patient to complete this Initial Case Management Assessment. 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 No Secondary Emergency Contact: Bijal Roger Mobile Relation: Spouse Preferred language: Chadian Compressed Air Pile Driver Operator needed? No Insurance: Primary Visit Coverage Payer Plan Sponsor Code Group Number Group Name [employer] MED[employer]ARE [employer]IOR [employer] [id number] Primary Visit Coverage Subscriber Subscriber ID Subscriber Name Subscriber SSN Subscriber Address [id number] RACHEL ROGER [id number] [place] [address] Patient information: Primary Caregiver: Self Support System: Immediate family Daily Living Activities: Functional Status: Independent Living Arrangements: Spouse/Significant other Type of Residence: Private residence, Single Level [address] [facility] [address] Smoker in the Home?: Yes Current DME: Equipment Currently Used at Home: none Current DME Provider: No HH, HI, or dialysis Income Information: Income Source: Retired Income/Expense Information: Expenses exceed income Housing Circumstances-Z Codes: Housing Circumstances (select all that apply): Low Income (101-300% Federal Poverty Guidlines) - Z596 Patient Referred to: Mani Gaviria Anticipated Discharge Date: 09/07/25 Patient's Discharge Goal: Patient/Family Anticipates Transition to: inpatient rehabilitation facility Assistance Available at Discharge: Current Outpatient/Agency/Support Group: other (see comments) (n/a) Availability of Care Givers (#Hours): 1-4 hours Discharge Transport: Transportation Anticipated: family or friend will provide Follow Up Transport: Transportation Needed to Follow up Appoinments: Family/Friend will Provide Home Health / Home Infusion / Outpatient Dialysis Services: Current DME Provider: No HH, HI, or dialysis Living Will/Advance Directive/Power of Systems Accountant /Guardian: Unable to assess: No Have you reviewed your Advance Directive and is it valid for this stay?: No Advance Directive: Not applicable Information Provided on Healthcare Directives: No Pre-existing DNR/DNI Order: No Patient Requests Assistance: No Additional Comments: Pt is POD 1 and has TERESITA recs. Pt requested a referral be sent to [facility]. Pt lives with her , who is blind, They live in a bottom floor apartment. Pt stated she has a son and daughter that could provide some assistance post rehab. Pt stated family could provide follow up transportation. Adele Wu RN * Nursing Note - Shin Vinson RN - 09/05/2025 10:10 AM EST Orthopedic Transition Nurse Note General: Spoke with: Patient, Bedside RN, and Primary Team Assessment and Interventions: Assessed: Dressing Dressing Interventions: CDI Wound 09/04/25 Surgical Leg Anterior;Left;Proximal;Upper (Active) Wound Assessment Unable to assess 09/05/25 0800 Margins Unable to assess 09/04/25 1220 Taya-Wound Assessment Unable to assess 09/05/25 0800 Closure Unable to assess 09/04/25 1220 Drainage Amount Unable to assess 09/04/25 1220 Dressing Status Clean;Dry;Intact 09/05/25 0800 Education: Education provided on: Dressing, Signs and symptoms of infection, Weight bearing mobility, and Ortho trauma booklet given Plan of Care: Follow up with Sarah Hunter on 09/20/2025 at 1050. Op-Plan: Completed Contact Card Given: yes Comments: Patient in chair. Educated patient on the importance of Matthew in promoting wound healing. Orthopedic team recommends post-operative patients take at least 2 packets per day of Matthew for 14 days aftersurgery. Awaiting subacute rehab. LLE: If bandage becomes wet, soiled, or falls off it may be replaced with a clean dry gauze dressing as needed. May remove left knee bandages from traction pin sites 2-3 days after surgery; if dry, may then leave open to air or place additional dry dressing as needed. For medical questions or concerns after discharge, please contact the Orthopedic Transition Nurse at [phone] Wednesday through Wednesday 8:00 am to 2:30 pm. If you feel your concern is a medical emergency please call 911 immediately. Based upon recent changes to [place] law related to prescribing opioid pain medications, our providers will not provide more than a 14 day supply of controlled medications following a major surgery or trauma from the date of your injury or hospital discharge. [place] 218[place], [place], & 201 DORINDA 9:260. * Progress Notes - Rajni Garcia - 09/05/2025 10:05 AM EST Occupational Therapy Evaluation Patient Name: Rachel Roger Today's Date: 09/05/2025 OT Discharge Recommendations: Subacute rehab Equipment Recommended: Defer to facility History Rachel Roger is 85 y.o. female admitted 09/03/2025 for work-up of Displaced intertrochanteric fracture of left femur, initial encounter for closed fracture. Problem List Active Hospital Problems Diagnosis Date Noted Osteoporosis with current pathological fracture 09/05/2025 Displaced intertrochanteric fracture of left femur, initial encounter for closed fracture 09/03/2025 Procedures 09/04/2025 Procedure(s): INSERTION, INTRAMEDULLARY OSWALD, FEMUR Past Medical History Patient has a past medical history of Acute UTI (urinary tract infection) (04/26/25), ASHLEY (acute kidney injury) (04/26/25), Conversions - Other, Conversions - Other, Conversions - Other, Conversions - Other, Conversions - Other, Conversions - Other, Conversions - Other, Encephalopathy (04/26/25), Old myocardial infarction, Personal history of other diseases of the nervous system and sense organs,Personal history of other specified conditions, and Transient ischemic attack (12/08/2021). Past Surgical History Patient has a past surgical history that includes Tubal ligation (N/A); Cardiac catheterization (N/A); and Hysterectomy (N/A). Precautions Left Lower Extremity Weight Bearing Status: Weight Bearing as Tolerated Medical Precautions: Fall precautions Subjective Patient agreeable to Occupational Therapy evaluation. Participants in Care Family/Caregiver Present: No Compressed Air Pile Driver Operator: Not Applicable Presentation Oxygen Therapy: None (Room air) Lines and Tubes: Intravenous access, Telemetry Pre-Session: Supine, Head of bed elevated, Lines intact, Bed alarm Pre-Session Comments: RN agreeable to OT Session Post-Session: Sitting in chair, Chair alarm, Lines intact, RN notified, Call light in reach Home Living/Set-up Lives With: Spouse Home Type: House Home Adaptive Equipment: None Home Layout: One level Bathroom: Tub/Shower: Tub/Shower combo Bathroom: Toilet: Standard Bathroom: Accessibility: Accessible Home Living Comments: Patient lives with who is blind, 2 steps to enter with one handrail. Prior Level of Function Receives Help From: No assist required prior to admission Level of Mobility: Ambulatory- community Mobility [place]: Independent gait without device History of Falls: No ADL Performance: Independent Patient/Family Goals Statement Pt is eager to return home. Objective Pain Pain Score (0-10): 2/10 Location: left LE Intervention: position adjusted, pillow support provided, and RN aware Delirium Screening RASS: Alert and calm Confusion Assessment Method-ICU (CAM-ICU/PCAM-ICU) Feature 3: Altered Level of Consciousness: Negative Cognition Overall Cognitive Status: Within Functional Limits Arousal/Alertness: Appropriate responses to stimuli Mood/Behavior: Alert Orientation Level: Oriented X4 Single Step Commands: Consistently Method of Communication: Verbal Vision - Basic Assessment Current Vision: Intact Right Upper Extremity Examination RUE ROM Assessment RUE Assessment: Within Functional Limits Manual Muscle Testing - RUE: Within functional limits Sensation Light Touch: Right Upper Extremity: Intact Left Upper Extremity Examination LUE ROM Assessment LUE Assessment: Within Functional Limits Manual Muscle Testing - LUE: Within functional limits Sensation Light Touch: Left Upper Extremity: Intact Right Lower Extremity Examination RLE ROM Assessment RLE Assessment: Within Functional Limits Manual Muscle Testing - RLE: Within functional limits Sensation Light Touch: Right Lower Extremity: Intact Left Lower Extremity Examination LLE ROM Assessment LLE Assessment: (AROM decreased) Manual Muscle Testing: (Grossly 2/5) Sensation Light Touch: Left Lower Extremity: Intact Bed Mobility Bed Mobility Exam: Rolling/Turning Level of [place]: Minimum assist (75% patient effort) Physical/Nonphysical Assist: Verbal Cues Assistive Device: Bed rails Bed Mobility Exam: Scooting/Bridging Level of [place]: Minimum assist (75% patient's effort) Physical/Nonphysical Assist: Verbal Cues Assistive Device: Bed rails Bed Mobility Exam: Supine to Sit Level of [place]: Minimum assist (75% patient's effort) Physical/Nonphysical Assist: Verbal Cues Assistive Device: Bed rails Bed Mobility Exam: Sit to Supine Level of [place]: (Patient left OOBTC.) Transfers Transfer Exam: Sit to stand Level of [place]: Minimum assist (75% patient's effort) Physical/Nonphysical Assist: Verbal Cues Assistive Device: Walker, rolling Transfer Exam: Stand to Sit Level of [place]: Minimum assist (75% patient's effort) Physical/Nonphysical Assist: Verbal Cues Assistive Device: Walker, rolling Balance Postural Appearance Posture: Within Functional Limits Static Sitting Balance Static Sitting-Balance Support: Right upper extremity support, Left upper extremity support Static Sitting-Level of Assistance: Contact guard Dynamic Sitting Balance Dynamic Sitting-Balance Support: Right upper extremity support, Left upper extremity support Level of Assistance: Minimum assistance Dynamic Standing Balance Dynamic Standing-Balance Support: Right upper extremity support, Left upper extremity support Dynamic Standing Level of Assistance: Minimum assistance Participation in Functional Tasks: Minimum assistance Self-Care Interventions Self Care/Home Management (ADLs) Time Entry: 23 Self-Care Interventions: Pt participated in ADL retraining emphasizing functional endurance/energy conservation, ADL retraining, and functional mobility. Pt completed simulated toileting activity including unsupported sitting at eob to simulate toileting. Pt then completed bed to bedside chair transfer to simulate bed to bedside commode transfer with min A with Rwx and additional cues for safety and sequencing. Grooming Grooming Level of Assistance: Setup, Modified independent Grooming Where Assessed: Chair level Grooming Interventions: Pt unable to complete grooming routine at baseline level of standing. Therapist modified task to unsupported sitting with setup to support highest level of independence with grooming tasks within current level of activity tolerance, supporting increased volitional effort andlocus of control. Lower Extremity Dressing Sock Level of Assistance: Dependent, Setup LE Dressing Where Assessed: Bed level LE Dressing Interventions: Therapist provided education on dressing affected limb first by dressingthe affected limb first promotes independence by reducing the risk of overuse or frustration, allows for better control and ease of movement, and helps protect the affected side from injury during the dressing process. Health Management Health Management interventions: Therapist provided education on current weight bearing status and how to safely participate in valued occupations given current weight bearing status. Standardized Assessments [facility] 6-Click Daily Activities Help from Other: Don/Doff Regular Lower Body Clothings: Total Help From Other: Bathing: A lot Help From Other: Toileting: A lot Help From Other: Don/Doff Upper Body Clothings: Little Help From Other: Grooming: Little Help From Other: Eating Meals: None [facility] 6 Click - Daily Activities Score: 15 Assessment Pt presents with decreased balance, impaired strength, limited endurance, and impaired motor planning impacting pt's ADL and IADL task performance. Pt requires modified ADL rotuines and increased assist for functional transfers and mobility as compared to baseline. To return to previous level of functional pt would benefit from further skilled inpatient intervention to increase independence and safety with in home. Patient would benefit from continued OT services to increase overall performancein hopes to return to [facility]. OT Findings: Impaired ADL performance, Impaired IADL performance, Impaired judgment during ADL, Impaired functional mobility, Impaired postural/trunk control, Decreased endurance/ventilation/gas exchange, Impaired fine motor control/coordination, Impaired executive function, Impaired balance Rehab Potential: Good, to achieve stated therapy goals Eval Complexity Occupational Profile: Expanded review of medical/therapy records and additional review of physical,cognitive, or psychosocial history Performance Deficits: Activities of daily living (ADLs), Instrumental activities of daily living (IADLs), Habits, Routines, Motor skills, Process skills, Body functions, Body structures, Cultural, Personal, Physical Clinical Decision Making: Moderate Overall Eval complexity: Moderate OT Recommendations Discharge Destination: Subacute rehab Discharge Equipment: Defer to facility Plan Planned OT Interventions ADL retraining, IADL retraining, Balance training, Bed mobility Training, Fine motor coordination training, Strengthening, ROM, Stretching, Transfer training, Functional mobility, Caregiver education, Cognitive retraining OT Frequency 2 - 5 times per week OT Duration 2 weeks Goals OT GOAL DETAILS Time Frame OT Goal 1: Pt will complete lower body dressing with mod A and AAD PRN. 2 weeks OT Goal 2: Pt will complete grooming while standing at sink with CGA and AAD PRN. 2 weeks OT Goal 3: Pt will demonstrate independence in bilateral UE HEP to increase strength and endurance for ADL performance. 2 weeks OT Goal 4: Pt will complete toileting including clothing management and personal hygiene with CGA and AAD PRN. 2 weeks OT Goal 5: Pt will be independent with energy conservation and work simplifcation techniques duringADL activities for 2/2 sessions to ensure educational retention. 2 weeks Written by Rajni Garcia on 09/05/25 at 2:24 PM. * Progress Notes - Nyla Hawkins - 09/05/2025 10:04 AM EST Physical Therapy Evaluation Patient Name: Rachel Roger Today's Date: 09/05/2025 PT Discharge Recommendations: Subacute rehab Equipment Recommended: Defer to facility Discharge Transportation Recommendations: Car History Rachel Roger is 85 y.o. female admitted 09/03/2025 for work-up of Displaced intertrochanteric fracture of left femur, initial encounter for closed fracture. Problem List Active Hospital Problems Diagnosis Date Noted Osteoporosis with current pathological fracture 09/05/2025 Displaced intertrochanteric fracture of left femur, initial encounter for closed fracture 09/03/2025 Procedures Procedure(s): INSERTION, INTRAMEDULLARY OSWALD, FEMUR Past Medical History Patient has a past medical history of Acute UTI (urinary tract infection) (04/26/25), ASHLEY (acute kidney injury) (04/26/25), Conversions - Other, Conversions - Other, Conversions - Other, Conversions - Other, Conversions - Other, Conversions - Other, Conversions - Other, Encephalopathy (04/26/25), Old myocardial infarction, Personal history of other diseases of the nervous system and sense organs,Personal history of other specified conditions, and Transient ischemic attack (12/08/2021). Past Surgical History Patient has a past surgical history that includes Tubal ligation (N/A); Cardiac catheterization (N/A); and Hysterectomy (N/A). Precautions Mobility Protocol: Ortho/Trauma/Spine Mobility Guidelines Spinal Precautions: No cranial, cervical or thoracolumbar spinal precautions necessary Extremity Precautions: Extremity Precautions Extremity: LLE Mobility Restrictions (LLE): Weight bear as tolerated (WBAT) Type of Brace (LLE): None Other mobility precautions: No other precautions required Medical Precautions: Fall precautions Subjective Patient agreeable to PT evaluation this date. Participants in Care Family/Caregiver Present: No Presentation Oxygen Therapy: None (Room air) Lines and Tubes: Intravenous access, Telemetry Pre-Session: Supine Post-Session: Sitting in chair, Chair alarm, Lines intact, RN notified, Call light in reach Home Living/Set-up Lives With: Spouse Home Type: House Home Adaptive Equipment: None Home Layout: One level Bathroom: Tub/Shower: Tub/Shower combo Bathroom: Toilet: Standard Bathroom: Accessibility: Accessible Home Living Comments: Patient lives with who is blind, 2 steps to enter with one handrail. Prior Level of Function Receives Help From: No assist required prior to admission Level of Mobility: Ambulatory- community Mobility [place]: Independent gait without device History of Falls: No ADL Performance: Independent Patient/Family Goals Patient agreeable to PT evaluation. Objective Pain Pain Score (0-10): 2 Location: left leg Intervention: ambulation/increased activity, position adjusted, prescribed exercises encouraged, and pillow support provided Response: comfortable at end of session Delirium Screening RASS: Alert and calm Confusion Assessment Method-ICU (CAM-ICU/PCAM-ICU) Feature 3: Altered Level of Consciousness: Negative Cognition Overall Cognitive Status: Within Functional Limits Arousal/Alertness: Appropriate responses to stimuli Mood/Behavior: Alert Orientation Level: Oriented X4 Single Step Commands: Consistently Method of Communication: Verbal Vision - Basic Assessment Current Vision: Intact Right Upper Extremity Examination RUE Assessment: Within Functional Limits Manual Muscle Testing - RUE: Within functional limits Sensation Light Touch: Right Upper Extremity: Intact Left Upper Extremity Examination LUE ROM Assessment LUE Assessment: Within Functional Limits Manual Muscle Testing - LUE Manual Muscle Testing - LUE: Within functional limits Sensation Light Touch: Left Upper Extremity: Intact Right Lower Extremity Examination RLE ROM Assessment RLE Assessment: Within Functional Limits Manual Muscle Testing - RLE Manual Muscle Testing - RLE: Within functional limits Sensation Light Touch: Right Lower Extremity: Intact Left Lower Extremity Examination LLE Assessment: (AROM decreased) Manual Muscle Testing: (Grossly 2/5) Sensation Light Touch: Left Lower Extremity: Intact Bed Mobility Bed Mobility Exam: Rolling/Turning Level of [place]: Minimum assist (75% patient effort) Physical/Nonphysical Assist: Verbal Cues Assistive Device: Bed rails Bed Mobility Exam: Scooting/Bridging Level of [place]: Minimum assist (75% patient's effort) Physical/Nonphysical Assist: Verbal Cues Assistive Device: Bed rails Bed Mobility Exam: Supine to Sit Level of [place]: Minimum assist (75% patient's effort) Physical/Nonphysical Assist: Verbal Cues Assistive Device: Bed rails Bed Mobility Exam: Sit to Supine Level of [place]: (Patient left OOBTC.) Transfers Transfer Exam: Sit to stand Level of [place]: Minimum assist (75% patient's effort) Physical/Nonphysical Assist: Verbal Cues Assistive Device: Walker, rolling Transfer Exam: Stand to Sit Level of [place]: Minimum assist (75% patient's effort) Physical/Nonphysical Assist: Verbal Cues Assistive Device: Walker, rolling Gait Training ( minutes) Device: Rolling walker Assistance: Minimum assistance, Maximum verbal cues, Maximum tactile cues Distance: 3 feet Gait Analysis: Patient with decreased step length, willie, and downward gaze with gait. Gait Training Interventions: Patient with verbal and tactile cues for walker placement and safety with gait. Therapeutic Exercise (12 minutes) Instructed on ankles pumps, quad sets, glut sets to be performed x 10 reps every hour patient is awake. Patient demonstrated understanding with verbal and tactile cues. Balance Dynamic Standing Balance Dynamic Standing-Balance Support: Right upper extremity support, Left upper extremity support Dynamic Standing Level of Assistance: Minimum assistance Participation in Functional Tasks: Minimum assistance Mobility CARE Tool Performance MOBILITY CARE ITEMS CARE SCORE Roll Left and Right 3 Sit to Lying 3 Lying to Sitting on Side of Bed 3 Sit to Stand 3 Chair/[id number]-[id number] Transfer 3 Toilet Transfer 9 Car Transfer 10 Walk 10 Feet 9 Walk 50 Feet with Two Turns 9 Walk 150 Feet 9 Walking 10 Feet of Uneven Surfaces 10 1 Step (Curb) 9 4 Steps 9 12 Steps 9 Picking up Object 9 Wheel 50 Feet with Two Turns 9 Wheel 150 Feet 9 CARE Tool Performance Score Echevarria Score Assist Level Description 6 Independent Patient completes the activity by him/herself with no assistance from a helper. 5 Set-up or Clean-up Assistance Coden sets up or cleans up; patient completes activity. Coden assists only prior to or following the activity. 4 Supervision or touching assistance Coden provides verbal cues and/or touching/steadying and/or contact guard assistance as patient completes activity. Assistance may be provided throughout the activity or intermittently. 3 Partial/Moderate Assistance Coden does LESS THAN HALF the effort. Coden lifts, holds or supports trunk or limbs, but provides less than half the effort. 2 Substantial/Maximal Assistance Coden does MORE THAN HALF the effort. Coden lifts or holds trunkor limbs and provides more than half the effort. 1 Dependent Coden does ALL of the effort. Patient does none of the effort to complete the activity. Or, the assistance of 2 or more helpers is required for the patient to complete the activity. Activity Not Attempted Values 7 Patient refused. 9 Not applicable - Not attempted and the patient did not perform this activity prior to the currentillness, exacerbation, or injury. 10 Not attempted due to environmental limitations (e.g., lack of equipment, weather constraints) 88 Not attempted due to medical condition or safety concerns Standardized Assessments [facility] 6-Clicks Mobility Assessment Difficulty patient has turning over in bed (including adjusting bedclothes, sheets, and blankets)?:A little Difficulty patient has sitting down on and standing up from a chair with arms (wheelchair, bedside commode, etc.)?: A little Difficulty patient has moving from lying on back to sitting on the side of the bed?: A little How much help does the patient need moving to and from a bed to a chair (including a wheelchair)?: A little How much help does the patient need to walk in hospital room?: A little How much help does the patient need climbing 3-5 steps with a railing?: Unable [facility] 6-Clicks Mobility Assessment Total : 16 Assessment Patient tolerated PT evaluation this date. Patient with decreased functional mobility this date. Patient was independent with all functional mobility prior to this hospital admission. Patient now requiring min assistance for all functional mobility and gait this date. Patient very motivated to return home with family once medically stable. Patient most appropriate for subacute rehab at this time. Impairments: Impaired gait dynamics/performance Participation Restrictions: Self-care, Community leisure, Home management Diagnosis: Patient with decreased functional mobility. Rehab Potential: Good, to achieve stated therapy goals Prior to admission patient lived with spouse/significant other and was independent with community ambulation. Patient's life role(s) include participation in household management and participation incommunity/leisure activities. Upon discharge from [facility] patient will require Subacute rehab to support eventual return home with the ability to safely navigate around the home using assistive device. Eval Complexity Clinical Presentation: Evolving clinical presentation with changing characteristics Clinical Decision Making: Moderate complexity PT Recommendations Discharge Destination: Subacute rehab Discharge Equipment: Defer to facility Demonstrates Need for Referral to Another Service: Social work Plan Planned PT Interventions Balance training, Bed mobility training, Gait training, Transfer training, Strengthening, Functional Mobility PT Frequency 3 - 5 times per week PT Duration 2 weeks Goals PT GOAL DETAILS Time Frame PT Goal 1: Patient will ambulate greater than or equal to 50 feet with AAD, modified independent. 2weeks PT Goal 2: Patient will be independent with HEP. 2 weeks PT Goal 3: Patient will be educated regarding discharge recommendations. 2 weeks PT Goal 4: Patient will perform all transfers modified independent with AAD. 2 weeks PT Goal 5: Patient will be OOBTC greater than or equal to one hour. 2 weeks * Progress Notes - Vianey Perry MD - 09/05/2025 3:16 AM EST Orthopaedic Trauma Surgery Progress Note 09/05/25 Subjective: NAEON. Doing well. Pain controlled. Patient is POD1 s/p L intertrochanteric femur fracture cephalomedullary nail. She states that she is tender about her incision but is looking froward to working with PTOT today. Objective: Vitals: 09/05/25 0119 BP: (!) 93/43 Pulse: 56 Resp: Temp: SpO2: Physical Examination: No acute distress Non labored breathing Peripheral perfusion intact Focused Musculoskeletal Examination: LLE Sensation to light touch intact to all terminal nerve distributions Dorsiflexion/plantarflexion, EHL/FHL motor intact 2+ palpable DP pulse, toes WWP Data: Labs in last 18 hours: CBC WBC ?? Hb 7.9 (L) Plt 64 (L) Hct 23.4 (L) INR ??, PTT ??, Anti-Xa ?? BMP Na 127 (L) Cl 97 BUN 38 (H) Glu 125 (H) K 5.8 (H) Co2 22 Cr 3.15 (H) Lactate ?? Assessment & Plan: Rachel Roger is a 85 y.o. female patient with the following orthopedic injuries: - L IT fx s/p CMN (09/04) - DVT prophylaxis: per primary - Pain control: MMPC - 23hr IV antibiotics - PT/OT recommendations: will assess in the postoperative period - Disposition: pending PTOT evaluation Mobility Orders Mobility Protocol: Ortho/Trauma/Spine Mobility Guidelines Spinal Precautions: No cranial, cervical or thoracolumbar spinal precautions necessary Extremity Precautions: Extremity Precautions Extremity: LLE Mobility Restrictions (LLE): Weight bear as tolerated (WBAT) Type of Brace (LLE): None Other mobility precautions: No other precautions required Vianey Perry MD Orthopedic Surgery PGY-1 [facility] Cosigned by Jose Antonio Hernández MD at 09/05/2025 8:25 AM EST * Care Plan - Damaris Cunningham RN - 09/04/2025 7:59 PM EST Problem: Adult Inpatient Plan of Care Goal: Plan of Care Review Outcome: Ongoing, Progressing Flowsheets (Taken 09/04/20251634 by Halley Jaimes RN) Progress: improving Outcome Evaluation: Patient back from OR. Patient alert and oriented. Plan of Care Reviewed With: patient Goal: Patient-Specific Goal (Individualized) Outcome: Ongoing, Progressing Flowsheets (Taken 09/04/2025 163 by Halley Jaimes RN) Patient/Family-Specific Goals (Include Timeframe): Patient will remain free from injury during hospital stay. Individualized Care Needs: Safety Anxieties, Fears or Concerns: Safety Goal: Absence of Hospital-Acquired Illness or Injury Outcome: Ongoing, Progressing Intervention: Identify and Manage Fall Risk Flowsheets (Taken 09/04/2025 163 by Halley Jaimes, RN) Safety Promotion/Fall Prevention: activity supervised safety round/check completed room organization consistent Intervention: Prevent Skin Injury Flowsheets Taken 09/04/2025 163 by Halley Jaimes RN Body Position: turned left Taken 09/03/2025 1804 by Catalina Andrade RN Skin Protection: incontinence pads utilized pulse oximeter probe site changed transparent dressing maintained Goal: Optimal Comfort and Wellbeing Outcome: Ongoing, Progressing Intervention: Monitor Pain and Promote Comfort Flowsheets (Taken 09/04/2025 163 by Halley Jaimes RN) Pain Management Interventions: emotional support Problem: Skin Injury Risk Increased Goal: Skin Health and Integrity Outcome: Ongoing, Progressing Intervention: Optimize Skin Protection Flowsheets Taken 09/04/2025 163 by Halley Jaimes RN Activity Management: activity adjusted per tolerance Taken 09/03/20251999 by Damaris Cunningham, RN Head of Bed (HOB) Positioning: HOB elevated Taken 09/03/2025 180 by Catalina Andrade RN Pressure Reduction Techniques: frequent weight shift encouraged heels elevated off bed positioned off wounds pressure points protected sit time limited to 1 hour sit time limited to 2 hours weight shift assistance provided Pressure Reduction Devices: chair cushion utilized positioning supports utilized pressure-redistributing mattress utilized Skin Protection: incontinence pads utilized pulse oximeter probe site changed transparent dressing maintained Problem: Fall Injury Risk Goal: Absence of Fall and Fall-Related Injury Outcome: Ongoing, Progressing Intervention: Identify and Manage Contributors Flowsheets (Taken 09/04/2025 163 by Halley Jaimes RN) Medication Review/Management: medications reviewed Self-Care Promotion: independence encouraged Problem: Infection Goal: Absence of Infection Signs and Symptoms Outcome: Ongoing, Progressing Intervention: Prevent or Manage Infection Flowsheets Taken 09/04/2025 163 by Halley Jaimes RN Fever Reduction/Comfort Measures: lightweight bedding lightweight clothing Taken 09/04/2025 1220 by Narda Galvin RN Isolation Precautions: protective precautions initiated Taken 09/03/20251803 by Catalina Andrade RN Infection Management: aseptic technique maintained Problem: Mobility Impairment Goal: Optimal Mobility Outcome: Ongoing, Progressing Intervention: Optimize Mobility Flowsheets Taken 09/04/2025 163 by Halley Jaimes RN Activity Management: activity adjusted per tolerance Taken 09/03/20251999 by Damaris Cunningham, RN Assistive Device Utilized: front wheel walker Taken 09/03/20251803 by Catalina Andrade RN Positioning/Transfer Devices: repositioning sheet Problem: Orthopaedic Fracture Goal: Absence of Bleeding Outcome: Ongoing, Progressing Intervention: Monitor and Manage Fracture Bleeding Flowsheets (Taken 09/04/2025 163 by Halley Jaimes RN) Bleeding Management: blood products administered dressing monitored Goal: Bowel Elimination Outcome: Ongoing, Progressing Goal: Absence of Embolism Signs and Symptoms Outcome: Ongoing, Progressing Goal: Fracture Stability Outcome: Ongoing, Progressing Goal: Optimal Functional Ability Outcome: Ongoing, Progressing Intervention: Optimize Functional Ability Flowsheets Taken 09/04/2025 163 by Halley Jaimes RN Activity Management: activity adjusted per tolerance Self-Care Promotion: independence encouraged Taken 09/03/20251803 by Catalina Andrade RN Positioning/Transfer Devices: repositioning sheet Goal: Absence of Infection Signs and Symptoms Outcome: Ongoing, Progressing Goal: Effective Tissue Perfusion Outcome: Ongoing, Progressing Goal: Optimal Pain Control and Function Outcome: Ongoing, Progressing Intervention: Manage Acute Orthopaedic-Related Pain Flowsheets (Taken 09/04/20251634 by Halley Jaimes RN) Pain Management Interventions: emotional support Goal: Effective Oxygenation and Ventilation Outcome: Ongoing, Progressing Problem: Pain Acute Goal: Optimal Pain Control and Function Outcome: Ongoing, Progressing Intervention: Optimize Psychosocial Wellbeing Flowsheets Taken 09/04/2025 163 by Halley Jaimes RN Supportive Measures: active listening utilized Taken 09/03/20251803 by Catalina Andrade RN Diversional Activities: smartphone television Spiritual Activities Assistance: music provided spiritual support provided Intervention: Prevent or Manage Pain Flowsheets (Taken 09/04/20251634 by Halley Jaimes RN) Medication Review/Management: medications reviewed Problem: Self-Care Deficit Goal: Improved Ability to Complete Activities of Daily Living Outcome: Ongoing, Progressing Intervention: Promote Activity and Functional [place] Flowsheets Taken 09/04/20251634 by Halley Jaimes RN Self-Care Promotion: independence encouraged Taken 09/03/20251999 by Damaris Cunningham RN Activity Assistance Provided: assistance, 1 person Taken 09/03/20251803 by Catalina Andrade RN Adaptive Equipment Use: use encouraged * Care Plan - Halley Jaimes RN - 09/04/2025 4:38 PM EST Problem: Adult Inpatient Plan of Care Goal: Plan of Care Review Outcome: Ongoing, Progressing Flowsheets (Taken 09/04/2025 1635) Progress: improving Outcome Evaluation: Patient back from OR. Patient alert and oriented. Plan of Care Reviewed With: patient Goal: Patient-Specific Goal (Individualized) Outcome: Ongoing, Progressing Flowsheets (Taken 09/04/2025 1635) Patient/Family-Specific Goals (Include Timeframe): Patient will remain free from injury during hospital stay. Individualized Care Needs: Safety Anxieties, Fears or Concerns: Safety Goal: Absence of Hospital-Acquired Illness or Injury Outcome: Ongoing, Progressing Intervention: Identify and Manage Fall Risk Flowsheets (Taken 09/04/2025 1635) Safety Promotion/Fall Prevention: activity supervised safety round/check completed room organization consistent Intervention: Prevent Skin Injury Flowsheets (Taken 09/04/2025 163) Body Position: turned left Goal: Optimal Comfort and Wellbeing Outcome: Ongoing, Progressing Intervention: Monitor Pain and Promote Comfort Flowsheets (Taken 09/04/2025 1635) Pain Management Interventions: emotional support Problem: Skin Injury Risk Increased Goal: Skin Health and Integrity Outcome: Ongoing, Progressing Intervention: Optimize Skin Protection Flowsheets (Taken 09/04/2025 1635) Activity Management: activity adjusted per tolerance Problem: Fall Injury Risk Goal: Absence of Fall and Fall-Related Injury Outcome: Ongoing, Progressing Intervention: Identify and Manage Contributors Flowsheets (Taken 09/04/2025 1635) Medication Review/Management: medications reviewed Self-Care Promotion: independence encouraged Problem: Infection Goal: Absence of Infection Signs and Symptoms Outcome: Ongoing, Progressing Intervention: Prevent or Manage Infection Flowsheets (Taken 09/04/2025 1635) Fever Reduction/Comfort Measures: lightweight bedding lightweight clothing Problem: Mobility Impairment Goal: Optimal Mobility Outcome: Ongoing, Progressing Intervention: Optimize Mobility Flowsheets (Taken 09/04/2025 1635) Activity Management: activity adjusted per tolerance Problem: Orthopaedic Fracture Goal: Absence of Bleeding Outcome: Ongoing, Progressing Intervention: Monitor and Manage Fracture Bleeding Flowsheets (Taken 09/04/2025 1635) Bleeding Management: blood products administered dressing monitored Goal: Bowel Elimination Outcome: Ongoing, Progressing Goal: Absence of Embolism Signs and Symptoms Outcome: Ongoing, Progressing Intervention: Prevent or Manage Embolism Risk Flowsheets (Taken 09/04/2025 1635) VTE Prevention/Management: bilateral lower extremity SCDs (sequential compression devices) on Goal: Fracture Stability Outcome: Ongoing, Progressing Goal: Optimal Functional Ability Outcome: Ongoing, Progressing Goal: Absence of Infection Signs and Symptoms Outcome: Ongoing, Progressing Goal: Effective Tissue Perfusion Outcome: Ongoing, Progressing Goal: Optimal Pain Control and Function Outcome: Ongoing, Progressing Goal: Effective Oxygenation and Ventilation Outcome: Ongoing, Progressing Problem: Pain Acute Goal: Optimal Pain Control and Function Outcome: Ongoing, Progressing Intervention: Optimize Psychosocial Wellbeing Flowsheets (Taken 09/04/2025 1635) Supportive Measures: active listening utilized Intervention: Develop Pain Management Plan Flowsheets (Taken 09/04/2025 1635) Pain Management Interventions: emotional support Problem: Self-Care Deficit Goal: Improved Ability to Complete Activities of Daily Living Outcome: Ongoing, Progressing Intervention: Promote Activity and Functional [place] Flowsheets (Taken 09/04/2025 1635) Self-Care Promotion: independence encouraged * Discharge Instr - Other Orders - Shin Vinson RN - 09/04/2025 2:22 PM EST Do not take out stitches or yasmeen. Leave the bandage on. If left leg bandage becomes wet, soiled, or falls off it may be replaced with a clean dry gauze dressing as needed. May remove left knee bandages from traction pin sites 2-3 days after surgery; if dry, may then leave open to air or place additional dry dressing as needed. Shower at any time. Avoid soaking your wound. * Discharge Instr - Activity - Shin Vinson RN - 09/04/2025 2:22 PM EST Move around as you are able. Do not drive while taking narcotic medications. Use assistive equipment as instructed. Weight bearing as tolerated through left leg. * Discharge Instr - AVS First Page - Shin Vinson RN - 09/04/2025 2:21 PM EST Reasons to call: Feels warm or hot to the touch Is red or dark pink Is tight or swollen and looks shiny Becomes more tender or sore to the touch Wound smells bad Wound is draining pus, bleeding or coming open Temperature is above 101.5 F Pain is not relieved by medications * Progress Notes - Chanelle Audelia Dannielle, DO - 09/04/2025 12:59 PM EST Images from the original note were not included. GME Progress Note Hospital Day: 1 09/04/25 Subjective Brief Patient Summary: 85 y.o. female with a PMHx of Aortic Stenosis s/p TAVR 01/19/2022 with a 23mm Shannon valve, CAD s/pPCI to ostial/mid LAD in 2015, hx of PFO seen on bubble study in 2007, SAH in 2007, HTN, HLD, T2DM not on insulin, NARAYAN, depression, memory loss, and hypothyroidism who presents with proximal left femur fracture after sustaining a ground level fall. Past 24 Hours: - after patient's peripheral nerve block, she became hypotensive without tachycardic response (however, she is on carvedilol) - pt BP corrected to baseline after a couple hours - no acute overnight events; HgB stable Today: - pt seen and evaluated at bedside - she has no new concerns; denied fevers, chills, soa, chest pain, or other modifying factors - she will be going to the OR today as the second case if potassium improves - echo obtained and is okay, EF of 62% and shows grade 1 diastolic dysfunction, prosthetic aortic valve is appropriate Objective Objective Last Recorded Vitals Blood pressure 118/72, pulse 76, temperature 36.4 ??C (97.6 ??F), temperature source Oral, resp. rate 12, height 1.575 m (5' 2 ), weight 50.5 kg (111 lb 5.3 oz), SpO2 96%. Physical Exam Physical Exam: General: appears stated age, no apparent distress HEENT: anicteric sclera, no conjunctival drainage CV: normal rate with regular rhythm, no appreciable MRG, no LE edema Resp: no appreciable wheezes/crackles, nonlabored breathing on RA GI: soft, no TTP, nondistended Neuro: awake and alert, no gross deficits Psych: appropriate mood with congruent affect, cooperative during exam Data: I have personally reviewed the following labs and used them to guide clinical decision making. CBC WBC 6.75 Hb 8.2 (L) Plt 72 (L) Hct 25.5 (L) ANC ?? INR 1.1, PTT ??, Anti-Xa ?? BMP Na 129 (L) Cl 98 BUN 37 (H) Glu 101 (H) K 5.4 (H) Co2 23 Cr 3.16 (H) Ca 8.4 (L) iCa ?? Mg ??, Phos 3.4 Lactate ?? LFT AST 37 (H) AlkPhos 39 (L) T Prot 5.2 (L) ALK 21 Bili <0.2 (L) Alb ?? D.Bili ?? Imaging: I have personally reviewed and independently interpreted the following imaging and agree with the formal interpretation. XR Femur Left 2+ Views Narrative: CLINICAL INDICATION: sp CMN TECHNIQUE: XR FEMUR LEFT 2+ VIEWS COMPARISON: CT dated September 03, 2025. FINDINGS: 2 views of the left femur show cephalomedullary fixation of intertrochanteric fracture of the femoral neck. Internal fixation of healed lateral tibial plateau fracture. Medial compartment knee joint space narrowing and osteophyte formation. Impression: Expected postoperative changes of cephalomedullary fixation of femoral neck fracture with improved fracture fragment alignment. CRITICAL RESULT: No. COMMUNICATION: Per this written report. Drafted by Cy Saha MD on 09/04/2025 1:20 PM Final report signed by Cy Saha MD on 09/04/2025 1:23 PM FL Less than 1 Hour Intraoperative Images were obtained for surgical purposes. See Jose Antonio Hernández's surgical note in the patient's chart for the findings. Echo, Adult Transthoracic Complete Left Ventricle: The left ventricle is small. There is concentric remodeling. The left ventricular systolic function is normal. The LVEF as measured by biplane volume is 62%. The peak intracavitary gradient is 39 mmHg. The diastolic function is abnormal. There is grade I (mild) diastolic dysfunction. 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 The peak gradient is 15 mmHg. The mean gradient is 8 mmHg. The gradient is normal for this prosthetic valve. Compared to the most recently available prior study, and allowing for differences in image quality and technique, there is no significant interval change noted. Assessment/Plan Assessment & Plan Principal Problem: Displaced intertrochanteric fracture of left femur, initial encounter for closed fracture Rachel Roger is a 85 y.o. female with PMH as per above who presents with acute left femur fracture after ground level mechanical fall in her kitchen. Acute Conditions: #Left Intertrochanteric Femur Fracture - Mechanism: Mechanical - Orthopedic surgery consulted: yes - CT Bony Pelvis: Acute comminuted angulated intertrochanteric left femur fracture. Degenerative changes and demineralization as described. Cummings hyperdense structure in the region of the right renal pelvis which was present on prior radiograph and may represent a large renal calculus. - Pain control: APAP q6 scheduled & oxycodone q6 hours prn - Bowel regimen: miralax/senna - BMD labs sent, consulted: pending official BMD note - PT/OT: pending eval post op #Perioperative Risk Stratification - RCRI: 3 - METS: METS >4 - EKG personally reviewed: Sinus Bradycardia with nonspecific ST changes in V1 and V2 - Active cardiac condition such as chest pain, accelerating chest pain, dyspnea on exertion, new oruncontrolled arrhythmia are: Not Present - Date of last dose of antiplatelet/anticoagulation: asa on 09/02/25 morning - Decompensated organ condition (including acute CHF, acute COPD, acute decompensated cirrhosis) are: Not Present - Patient has NARAYAN/home oxygen requirement: none - Echo is: Required, performed with results above in imaging, EF 62%, aortic valve readings appropriate. RECOMMENDTIONS: - Medical Optimization: For medical optimization prior to OR, patient requires: potassium to be decreasing after second hyperK protocol to at least < 5.5; then she is medically optimized to go to OR today #Clinical Frailty Score - score of 2 points #Non-Oliguric Acute Kidney Injury iso of CKD4 - unclear baseline but last recorded in our system is from 01/20/2022 showing Cr of 1.01 - Cr at admission is 3.17, had Cr of 2.17 at her last PCP visit on 08/24/25 with eGFR of 22 - recent UTI with bactrim prescribed which could directly result in kidney injury - pt notes was down for approx 4hrs at home after fall - no signs of ATN on UA - CK level elevated in 800s - cystatin C of 2.09, likely this is her baseline Cr levels Plan: - trend Cr on morning labs - hold Lomotil as could be causing drug induced injury - encourage PO intake, IVF if needed #Disorder of Fluids and Electrolytes with Hyperkalemia and Hyponatremia - etiology is likely from ASHLEY in combination with poor PO intak - now s/p 2 rounds of HyperK protocol PLAN: - trend electrolytes on morning labs - sodium expected to resolve with fluids and PO intake - repeat RFP before OR and if potassium decreasing and < 5.5 she will be medically optimized to go to OR today #AOCD #Thrombocytopenia - platelets on admission of 79k with baseline of 130 from 3yrs ago - HgB of 9.1 on admission with baseline of 10.8 - ferritin elevated and iron decreased on labs - retic count absolute decreased PLAN: - trend Hgb and platelets daily - if Hgb < 7 will need transfusion - if platelets <10k or if <50k with acute bleed will need transfusion #Bone Mineral Disease with Hyperparathyroidism likely Secondary to Vitamin D deficiency - restart replacement post OR Chronic Conditions: #CAD: continue ASA, last cath in 2020 showed patent stent; hold imdur #HTN: home coreg #T2DM: pt notes controlled with diet, will utilize SSI; hold jardiance #Memory loss with mild cognitive impairment: on memantidine #Hyperlipidemia: resumed home atorvastatin #Depression with anxiety: resumed home lexapro #Hypothyroidism: resumed home synthroid #Irritable bowel syndrome with diarrhea: will hold Lomotil - could be contributing to her kidney injury/dysfunction #PFO: seen on bubble study in 2007 #SAH: occurred in 2007 #NARAYAN: does not admit to cpap at home #Hx of TIA Code Status: Full code DVT ppx: pLOV Diet: cardiac, NPO at midnight Dispo: admit to fragility fracture service, dispo planning after OR with pt/ot recs Please note that all recommendations should be considered preliminary until this note is cosigned by the attending physician. Patient was seen and plan discussed with Dr. Barros. - Audelia Roca DO Internal Medicine PGY-2 Pager [phone]; Epic Chat preferred Cosigned by Renu Barros MD at 09/04/2025 6:00 PM EST Associated attestation - Renu Barros MD - 09/04/2025 6:00 PM EST I saw and evaluated the patient. I discussed the case with the resident/fellow and agree with the findings and plan as documented. History from patient and family. Case discussed with case management, pharmacist and physical therapy. Due to recent surgery and present co-morbidities, she is high risk. Reviewed complete blood counts and complete metabolic panel from yesterday and today. Reviewed records from yesterday and today. Care plan discussed with patient and family. Monitoring Kidney functions due to acute kidney injury on chronic kidney disease. * Anesthesia PACU Signout - Josh Cummins MD - 09/04/2025 12:47 PM EST Patient: Rachel Roger Anesthesia Type: general Vitals Value Taken Time BP 133/62 09/04/25 12:35 Temp 36.4 ??C (97.6 ??F) 09/04/25 12:20 Pulse 78 09/04/25 12:45 Resp 12 09/04/25 12:45 SpO2 99 % 09/04/25 12:45 Vitals shown include unfiled device data. Anesthesia PACU Signout Patient location during evaluation: PACU Patient participation: complete - patient participated Level of consciousness: baseline and awake Pain management: adequate (pain score 0-3) Airway patency: natural airway Hydration status: acceptable PONV: none Cardiovascular status: acceptable and hemodynamically stable Respiratory status: acceptable, spontaneous ventilation, unassisted and nonlabored ventilation Discharge Disposition: admit to inpatient unit Cosigned by Cheli Kent MD at 09/04/2025 12:50 PM EST Associated attestation - Cheli Kent MD - 09/04/2025 12:50 PM EST Agree with above assessment and evaluation from resident/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 * Consults - Rosey Clifton, RD - 09/04/2025 11:22 AM EST Adult Nutrition Evaluation Note Rachel Roger 85 y.o. female CSN: [id number] Room/Bed OR/- Nutrition evaluation type: assessment Reason for evaluation: nurse consult - MST = 3 Hospital course: 85 yo female admit 09/03 with left femur fracture after fall. Plan for fixation 09/04. Past medical/ surgical history: Past Medical History[1] Surgical History[2] Social history: Additional comments: Pt at OR during RD visit this morning. If accurate, pt has lost about 20# since February. 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 Vitals and Basic Assessment: BP: (!) 140/67 Temp: 36.8 ??C (98.2 ??F) Oxygen Therapy: None (Room air) O2 Delivery Method: Nasal cannula Ramu Coma Scale Score: 15 Luis Scale Score: 16 Allergies: NKFA Medications: Current Medications[3] Labs: Labs in last 18 hours CBC WBC 6.75 Hb 8.2 (L) Plt 72 (L) Hct 25.5 (L) ANC ?? INR 1.1, PTT ??, Anti-Xa ?? BMP Na 129 (L) Cl 98 BUN 37 (H) Glu 101 (H) K 5.4 (H) Co2 23 Cr 3.16 (H) Ca 8.4 (L) iCa ?? Mg ??, Phos 3.4 Lactate ?? LFT AST 37 (H) AlkPhos 39 (L) T Prot 5.2 (L) ALK 21 Bili <0.2 (L) Alb ?? D.Bili ?? K+ elevated Anthropometrics: Height: 157.5 cm (5' 2 ) Weight: 50.5 kg (111 lb 5.3 oz) BMI (Calculated): 20.36 Weight Evaluation: Normal (BMI 18.5-24.9) [place] Body Weight (kg): 50 Percent [place] Body Weight: 101 Wt Readings from Last 10 Encounters: 09/03/25 50.5 kg (111 lb 5.3 oz) 02/01/24 52 kg (114 lb 10.2 oz) 01/18/23 57.7 kg (127 lb 3.3 oz) 02/25/22 59 kg (130 lb) 02/25/22 60.2 kg (132 lb 11.5 oz) 01/20/22 60.5 kg (133 lb 6.1 oz) 01/16/22 60.3 kg (133 lb) 12/24/21 63 kg (139 lb) 12/15/21 62.4 kg (137 lb 9.1 oz) 11/21/21 60.8 kg (134 lb) Estimated Needs: Metabolic Cart Study Results: Current Nutrition Intake: Diet Order: NPO Diet Experience and Nutrition History: Diet Education Provided: Will monitor Pertinent home medications: fibercon, B12, jardiance, zinc gluconate, fish oil, multivitamin Nutrition Focused Physical Exam: Unable to Complete Exam: Patient out of room Physical exam performed on (date): Assessment of Malnutrition: Nutrition Problem: Inadequate energy intake related to OR as evidenced by NPO. Status of Nutrition Diagnosis: New Nutrition Interventions and Recommendations: - When appropriate, recommend a Low K+ diet - Impact AR BID x 5 days, Novasource Renal once a day - Resume home appetite stimulant (remeron) as appropriate Nutrition Monitoring and Goals: - PO >75% of meals - Weight maintenance - K+ WNL Acuity Level: [address] [1] Past Medical History: Diagnosis Date Acute UTI (urinary tract infection) 04/26/25 ASHLEY (acute kidney injury) 04/26/25 Conversions - Other Allergic Bronchitis With Status Asthmaticus Conversions - Other Anemia Conversions - Other Angina Pectoris Conversions - Other Aortic Stenosis Conversions - Other Roberts's Esophagus Conversions - Other Dysphagia Conversions - Other Subarachnoid Hemorrhage Encephalopathy 04/26/25 Old myocardial infarction History of myocardial infarction Personal history of other diseases of the nervous system and sense organs History of sleep apnea Personal history of other specified conditions History of chest pain Transient ischemic attack 12/08/2021 [2] Past Surgical History: Procedure Laterality Date CARDIAC CATHETERIZATION N/A HYSTERECTOMY N/A TUBAL LIGATION N/A [3] Current Facility-Administered Medications: [Transfer Hold] acetaminophen (Tylenol) tablet 650 mg, 650 mg, Oral, q8h, Audelia Roca DO, 650 mg at 09/04/25 0329 [Transfer Hold] aspirin chewable tablet 81 mg, 81 mg, Oral, Daily, Audelia Roca, DO, 81 mg at 09/03/25 1545 [Transfer Hold] atorvastatin (Lipitor) tablet 80 mg, 80 mg, Oral, Nightly, Audelia Roca, DO, 80 mg at 09/03/252001 [Transfer Hold] busPIRone (Buspar) tablet 5 mg, 5 mg, Oral, BID PRN, Audelia Roca, DO [Transfer Hold] carvedilol (Coreg) tablet 12.5 mg, 12.5 mg, Oral, BID, Audelia Roca, DO [Transfer Hold] cyanocobalamin (Vitamin B-12) tablet 1,000 mcg, 1,000 mcg, Oral, Daily, Audelia Rcoa, DO, 1,000 mcg at 09/03/25 1545 [Transfer Hold] glucose (Glutose) 40 % oral gel 15-30 grams of glucose, 15-30 grams of glucose, Sublingual, q15 min PRN OR [Transfer Hold] dextrose 10 % (D10W) bolus 125 mL, 125 mL, Intravenous, q15 min PRN, Last Rate: 500 mL/hr at 09/04/25 0604, 125 mL at 09/04/25 0604 OR [Transfer Hold] dextrose 10 % (D10W) bolus 250 mL, 250 mL, Intravenous, q15 min PRN OR [Transfer Hold] glucagon (human recombinant) injection 1 mg, 1 mg, Intramuscular, q15 min PRN, Audelia Roca, DO [Transfer Hold] escitalopram (Lexapro) tablet 10 mg, 10 mg, Oral, Daily, Audelia Roca, DO, 10 mg at 09/04/25 0912 [Transfer Hold] levothyroxine (Synthroid, Levoxyl) tablet 112 mcg, 112 mcg, Oral, Daily, Audelia Roca, DO, 112 mcg at 09/04/25 0907 [Transfer Hold] melatonin tablet 3 mg, 3 mg, Oral, Nightly PRN, Audelia Roca, DO [Transfer Hold] memantine (Namenda) tablet 5 mg, 5 mg, Oral, BID, Audelia Roca DO, 5 mg at 09/04/25 0907 [Transfer Hold] mupirocin (Bactroban) 2 % ointment 1 Application, 1 Application, Each Nostril, BID,Chris Saravia MD, 1 Application at 09/04/25 0907 [Transfer Hold] omega-3 (Fish Oil) capsule 1,000 mg, 1,000 mg, Oral, Daily, Audelia Roca DO, 1,000 mg at 09/03/25 1545 [Transfer Hold] ondansetron ODT (Zofran-ODT) disintegrating tablet 4 mg, 4 mg, Oral, q6h PRN OR[Transfer Hold] ondansetron (Zofran) injection 4 mg, 4 mg, Intravenous, q6h PRN OR [Transfer Hold] ondansetron (Zofran) 4 MG/5ML solution 4 mg, 4 mg, Oral, q6h PRN, Audelia Roca DO [Transfer Hold] oxyCODONE (Roxicodone) immediate release tablet 5 mg, 5 mg, Oral, q6h PRN, Audelia Roca DO [Transfer Hold] polyethylene glycol (Miralax) packet 17 g, 17 g, Oral, Daily, Audelia Roca DO [Transfer Hold] senna (Senokot) tablet 17.2 mg, 2 tablet, Oral, Nightly, Audelia Roca DO, 17.2 mg at 09/03/252001 Insert peripheral IV, , , Once AND Saline lock IV, , , Once AND [Transfer Hold] sodium chloride 0.9 % flush 10 mL, 10 mL, Intravenous, q12h, 10 mL at 09/03/25 2316 AND [Transfer Hold] sodium chloride 0.9 % flush 10 mL, 10 mL, Intravenous, PRN, Audelia Roca, Insert peripheral IV, , , Once AND Saline lock IV, , , Once AND sodium chloride 0.9 % flush10 mL, 10 mL, Intravenous, q12h AND sodium chloride 0.9 % flush 10 mL, 10 mL, Intravenous, PRN,Chris Saravia MD Facility-Administered Medications Ordered in Other Encounters: dexamethasone (Decadron) injection, , Intravenous, PRN, Maze, Greeley A, [employer], 4 mg at 09/04/25 1051 ePHEDrine Sulfate (Akovaz) injection, , Intravenous, PRN, Maze, Greeley A, [employer], 5 mg at 09/04/25 1051 fentaNYL (Sublimaze) injection, , Intravenous, PRN, Maze, Greeley A, [employer], 100 mcg at 09/04/25 1120 lactated Ringer's infusion, , Intravenous, Continuous PRN, Maze, Vaishnavi A, [employer], New Bag at 09/04/25 1026 Lidocaine HCl prefilled syringe, , Buccal, PRN, Maze, Vaishnavi A, [employer], 20 mg at 09/04/25 1030 phenylephrine in NS (Fortunato-Synephrine) 100 mcg/mL prefilled syringe, , Intravenous, PRN, Maze, Vaishnavi A, [employer], 150 mcg at 09/04/25 1107 propofol (Diprivan) injection, , Intravenous, PRN, Maze, Greeley A, [employer], 100 mg at 09/04/25 1030 rocuronium (ZeMuron) injection, , Intravenous, PRN, Maze, Vaishnavi A, [employer], 50 mg at 09/04/25 1031 vasopressin (Vasostrict) injection, , Subcutaneous, PRN, Maze, Greeley A, [employer], 1 Units at * Op Note - Jose Antonio Hernández MD - 09/04/2025 11:01 AM EST Operative Note Date: 09/04/25 Location: [facility] Name: Rachel Roger, : 1940, Diagnoses: Pre-op Diagnosis Displaced intertrochanteric fracture of left femur, initial encounter for closed fracture Post-op Diagnosis Displaced intertrochanteric fracture of left femur, initial encounter for closed fracture Procedure(s): Open treatment left intertrochanteric femur fracture with medullary implant Attending Surgeon(s): * Jose Antonio Hernández - Primary Baker Doughnut(s): * Eva Corral MD - Resident - Assisting Anesthesia: Choice ASA: III Blood Administration: Blood Product Administration History Product Date Volume Status Transfuse RBC RBC 09/04/2025 350 mL Stopped Estimated Blood Loss: 75 ml Drains: * None in log * Implants Type Name Action Serial No. Nail NAIL [employer] [id number] - [id number] Implanted Specimen: Findings: Displaced and unstable left intertrochanteric femur fracture Indications: Rachel Roger is an 85 y.o. female who is having surgery for Displaced intertrochanteric fracture of left femur, initial encounter for closed fracture. Narrative: The patient was identified marked in the preop holding area. The details, risks, benefits, of surgery were discussed. Alternatives to the operative plan were also discussed. Informed consent was obtained from the patient. The patient was taken to the operative suite and surrendered to general anesthesia. Patient was placed supine on a radiolucent table. We prepped and draped the left lower extremity inthe usual sterile fashion. A time-out was performed the entire operative service was in agreement patient, position, procedure, and side. Perioperative antibiotics were administered within 1 hour of incision time. Placed the patient into 15 lb of proximal tibia traction through a traction pin placed in the usualsterile fashion. Radiographs demonstrated acceptable reduction with traction alone. We obtained a trochanteric start point with a 3.2 mm terminally threaded guide pin. This was advanced and good position confirmed on biplanar fluoroscopy. We over-reamed with a channel Reamer. A ball-tipped guidewire was then inserted. We advanced the ball-tipped guidewire to the level of the distal femoral physeal scar. We measured our length. We reamed sequentially up to a size 11.5 mm through the shaft and 16mm through the proximal metadiaphyseal region to the level of the lesser trochanter. We inserted a [employer] intermediate intertan. Next, we inserted a 3.2 mm guide pin through a proximal interlocking jig so as to minimize the tip-apex distance. We measured a 95 mm length. We placed a 95/90 mm screw construct. Next, we placed a single distal interlocking bolt using the insertion jig. X-rays demonstrated anatomic mandaeism the proximal femur and safe implant placement. We irrigated the incisions copiously and closed in layers. Sterile dressings were applied. The traction pin wasremoved aseptically. The patient awakened successfully and transferred the PACU in stable condition. I was present the entire operation Postop plan: Weightbear as tolerated left lower extremity IV antibiotics times 24 hours Mobility with physical therapy Tertiary survey DVT prophylaxis Pain control Complications: None; patient tolerated the procedure well. Submitted by: Jose Antonio Hernández MD - 09/04/2025 * Progress Notes - Vianey Perry MD - 09/04/2025 4:30 AM EST Orthopaedic Trauma Surgery Progress Note 09/04/25 Subjective: NAEON. Doing well. Pain controlled. Patient is set to go to OR today, has been NPO since DC for left femur IT fracture fixation. Objective: Vitals: 09/03/25 2310 BP: 114/50 Pulse: 50 Resp: Temp: 36.4 ??C (97.5 ??F) SpO2: Physical Examination: No acute distress Non labored breathing Peripheral perfusion intact Focused Musculoskeletal Examination: LLE Sensation to light touch intact to all terminal nerve distributions Dorsiflexion/plantarflexion, EHL/FHL motor intact 2+ palpable DP pulse, toes WWP Data: Labs in last 18 hours: CBC WBC 7.41 Hb 8.8 (L) Plt 77 (L) Hct 26.6 (L) INR 1.1, PTT ??, Anti-Xa ?? BMP Na 133 (L) Cl 105 BUN 33 (H) Glu 123 (H) K 5.3 (H) Co2 22 Cr 2.70 (H) Lactate ?? Assessment & Plan: Rachel Roger is a 85 y.o. female patient with the following orthopedic injuries: - L IT fx - DVT prophylaxis: held at DC - Pain control: MMPC - Diet: NPO - PT/OT recommendations: will assess in the postoperative period - Disposition: to OR for for L femur CMN today Mobility Orders Mobility Protocol: Ortho/Trauma/Spine Mobility Guidelines Spinal Precautions: No cranial, cervical or thoracolumbar spinal precautions necessary Extremity Precautions: Extremity Precautions Extremity: LLE Mobility Restrictions (LLE): Non-weight bear (NWB) Type of Brace (LLE): None Other mobility precautions: No other precautions required Vianey Perry MD Orthopedic Surgery PGY-1 [facility] Cosigned by Jose Antonio Hernández MD at 09/04/2025 7:12 AM EST * Care Plan - Damaris Cunningham RN - 09/03/2025 11:51 PM EST Problem: Adult Inpatient Plan of Care Goal: Plan of Care Review 09/03/20252348 by Damaris Cunningham RN Outcome: Ongoing, Progressing Flowsheets (Taken 09/03/2025 180 by Catalina Andrade, FILIBERTO) Progress: no change Plan of Care Reviewed With: patient 09/03/20252348 by Damaris Cunningham RN Outcome: Ongoing, Progressing Goal: Patient-Specific Goal (Individualized) 09/03/20252348 by Damaris Cunningham RN Outcome: Ongoing, Progressing Flowsheets (Taken 09/03/20251999) Patient/Family-Specific Goals (Include Timeframe): patient will verbalize an adequate pain level throughout the shift Individualized Care Needs: pain control Anxieties, Fears or Concerns: pain 09/03/20252348 by Damaris Cunningham RN Outcome: Ongoing, Progressing Goal: Absence of Hospital-Acquired Illness or Injury 09/03/20252348 by Damaris Cunningham RN Outcome: Ongoing, Progressing 09/03/20252348 by Damaris Cunningham RN Outcome: Ongoing, Progressing Intervention: Prevent Skin Injury Flowsheets (Taken 09/03/2025 180 by Catalina Andrade RN) Skin Protection: incontinence pads utilized pulse oximeter probe site changed transparent dressing maintained Intervention: Prevent and Manage VTE (Venous Thromboembolism) Risk Flowsheets (Taken 09/03/20252348) VTE Prevention/Management: bilateral Goal: Optimal Comfort and Wellbeing 09/03/20252348 by Damaris Cunningham RN Outcome: Ongoing, Progressing 09/03/20252348 by Damaris Cunningham RN Outcome: Ongoing, Progressing Problem: Skin Injury Risk Increased Goal: Skin Health and Integrity 09/03/20252348 by Damaris Cunningham RN Outcome: Ongoing, Progressing 09/03/20252348 by Damaris Cunningham RN Outcome: Ongoing, Progressing Intervention: Optimize Skin Protection Flowsheets Taken 09/03/20251999 by Damaris Cunningham RN Activity Management: activity adjusted per tolerance Head of Bed (HOB) Positioning: HOB elevated Taken 09/03/20251803 by Catalina Andrade, RN Pressure Reduction Techniques: frequent weight shift encouraged heels elevated off bed positioned off wounds pressure points protected sit time limited to 1 hour sit time limited to 2 hours weight shift assistance provided Pressure Reduction Devices: chair cushion utilized positioning supports utilized pressure-redistributing mattress utilized Skin Protection: incontinence pads utilized pulse oximeter probe site changed transparent dressing maintained Problem: Fall Injury Risk Goal: Absence of Fall and Fall-Related Injury 09/03/20252348 by Damaris Cunningham RN Outcome: Ongoing, Progressing 09/03/20252348 by Damaris Cunningham RN Outcome: Ongoing, Progressing Intervention: Identify and Manage Contributors Flowsheets (Taken 09/03/20251803 by Catalina Andrade RN) Medication Review/Management: medications reviewed Self-Care Promotion: BADL personal objects within reach BADL personal routines maintained independence encouraged meal set-up provided Problem: Infection Goal: Absence of Infection Signs and Symptoms 09/03/20252348 by Damaris Cunningham RN Outcome: Ongoing, Progressing 09/03/20252348 by Damaris Cunningham RN Outcome: Ongoing, Progressing Intervention: Prevent or Manage Infection Flowsheets Taken 09/03/20251999 by Damaris Cunningham RN Isolation Precautions: precautions maintained Taken 09/03/20251803 by Catalina Andrade RN Infection Management: aseptic technique maintained Fever Reduction/Comfort Measures: lightweight bedding lightweight clothing Problem: Mobility Impairment Goal: Optimal Mobility 09/03/20252348 by Damaris Cunningham RN Outcome: Ongoing, Progressing 09/03/20252348 by Damaris Cunningham RN Outcome: Ongoing, Progressing Intervention: Optimize Mobility Flowsheets Taken 09/03/20251999 by Damaris Cunningham RN Activity Management: activity adjusted per tolerance Assistive Device Utilized: front wheel walker Taken 09/03/2025 180 by Catalina Andrade, RN Positioning/Transfer Devices: repositioning sheet Problem: Orthopaedic Fracture Goal: Absence of Bleeding 09/03/20252348 by Damaris Cunningham RN Outcome: Ongoing, Progressing 09/03/20252348 by Damaris Cunningham RN Outcome: Ongoing, Progressing Goal: Bowel Elimination 09/03/20252348 by Damaris Cunningham RN Outcome: Ongoing, Progressing 09/03/20252348 by Damaris Cunningham RN Outcome: Ongoing, Progressing Goal: Absence of Embolism Signs and Symptoms 09/03/20252348 by Damaris Cunningham RN Outcome: Ongoing, Progressing 09/03/20252348 by Damaris Cunningham RN Outcome: Ongoing, Progressing Intervention: Prevent or Manage Embolism Risk Flowsheets (Taken 09/03/20252348) VTE Prevention/Management: bilateral Goal: Fracture Stability 09/03/20252348 by Damaris Cunningham RN Outcome: Ongoing, Progressing 09/03/20252348 by Damaris Cunningham RN Outcome: Ongoing, Progressing Goal: Optimal Functional Ability 09/03/20252348 by Damaris Cunningham, FILIBERTO Outcome: Ongoing, Progressing 09/03/20252348 by Damaris Cunningham RN Outcome: Ongoing, Progressing Intervention: Optimize Functional Ability Flowsheets Taken 09/03/20251999 by Damaris Cunningham, FILIBERTO Activity Management: activity adjusted per tolerance Taken 09/03/2025 180 by Catalina Andrade RN Positioning/Transfer Devices: repositioning sheet Self-Care Promotion: BADL personal objects within reach BADL personal routines maintained independence encouraged meal set-up provided Goal: Absence of Infection Signs and Symptoms 09/03/20252348 by Damaris Cunningham, FILIBERTO Outcome: Ongoing, Progressing 09/03/20252348 by Damaris Cunningham RN Outcome: Ongoing, Progressing Intervention: Prevent or Manage Infection Flowsheets Taken 09/03/20251999 by Damaris Cunningham RN Isolation Precautions: precautions maintained Taken 09/03/20251803 by Catalina Andrade RN Infection Management: aseptic technique maintained Fever Reduction/Comfort Measures: lightweight bedding lightweight clothing Goal: Effective Tissue Perfusion 09/03/20252348 by Damaris Cunningham RN Outcome: Ongoing, Progressing 09/03/20252348 by Damaris Cunningham RN Outcome: Ongoing, Progressing Goal: Optimal Pain Control and Function 09/03/20252348 by Damaris Cunningham RN Outcome: Ongoing, Progressing 09/03/20252348 by Damaris Cunningham RN Outcome: Ongoing, Progressing Goal: Effective Oxygenation and Ventilation 09/03/20252348 by Damaris Cunningham RN Outcome: Ongoing, Progressing 09/03/20252348 by Damaris Cunningham RN Outcome: Ongoing, Progressing Problem: Pain Acute Goal: Optimal Pain Control and Function 09/03/20252348 by Damaris Cunningham RN Outcome: Ongoing, Progressing 09/03/20252348 by Damaris Cunningham RN Outcome: Ongoing, Progressing Intervention: Optimize Psychosocial Wellbeing Flowsheets (Taken 09/03/20251803 by Catalina Andrade, FILIBERTO) Supportive Measures: active listening utilized decision-making supported relaxation techniques promoted self-reflection promoted self-care encouraged problem-solving facilitated mindfulness techniques promoted self-responsibility promoted verbalization of feelings encouraged Diversional Activities: [employer] television Spiritual Activities Assistance: music provided spiritual support provided Intervention: Develop Pain Management Plan Flowsheets (Taken 09/03/20251999) Pain Management Interventions: rest position adjusted pillow support provided Intervention: Prevent or Manage Pain Flowsheets (Taken 09/03/20251803 by Catalina Andrade, FILIBERTO) Medication Review/Management: medications reviewed Problem: Self-Care Deficit Goal: Improved Ability to Complete Activities of Daily Living 09/03/20252348 by Damaris Cunningham RN Outcome: Ongoing, Progressing 09/03/20252348 by Damaris Cunningham RN Outcome: Ongoing, Progressing Intervention: Promote Activity and Functional [place] Flowsheets Taken 09/03/20251999 by Damaris Cunningham, RN Activity Assistance Provided: assistance, 1 person Taken 09/03/20251803 by Catalina Andrade RN Adaptive Equipment Use: use encouraged Self-Care Promotion: BADL personal objects within reach BADL personal routines maintained independence encouraged meal set-up provided * Care Plan - Catalina Andrade RN - 09/03/2025 6:07 PM EST Problem: Adult Inpatient Plan of Care Goal: Plan of Care Review Flowsheets (Taken 09/03/20251803) Progress: no change Plan of Care Reviewed With: patient Goal: Patient-Specific Goal (Individualized) Flowsheets (Taken 09/03/20251743 by Andrés Godwin RN) Patient/Family-Specific Goals (Include Timeframe): Patient will verbalize pain control throughout the entire shift Individualized Care Needs: pain control Anxieties, Fears or Concerns: pain Goal: Optimal Comfort and Wellbeing Intervention: Monitor Pain and Promote Comfort Flowsheets (Taken 09/03/20251803) Pain Management Interventions: medication (see MAR) diversional activity provided emotional support medication offered but refused relaxation techniques promoted quiet environment facilitated premedicated for activity position adjusted pillow support provided Problem: Skin Injury Risk Increased Goal: Skin Health and Integrity Intervention: Optimize Skin Protection Flowsheets (Taken 09/03/20251803) Activity Management: activity adjusted per tolerance activity encouraged Pressure Reduction Techniques: frequent weight shift encouraged heels elevated off bed positioned off wounds pressure points protected sit time limited to 1 hour sit time limited to 2 hours weight shift assistance provided Pressure Reduction Devices: chair cushion utilized positioning supports utilized pressure-redistributing mattress utilized Skin Protection: incontinence pads utilized pulse oximeter probe site changed transparent dressing maintained Problem: Fall Injury Risk Goal: Absence of Fall and Fall-Related Injury Intervention: Identify and Manage Contributors Flowsheets (Taken 09/03/20251803) Medication Review/Management: medications reviewed Self-Care Promotion: BADL personal objects within reach BADL personal routines maintained independence encouraged meal set-up provided Problem: Infection Goal: Absence of Infection Signs and Symptoms Intervention: Prevent or Manage Infection Flowsheets (Taken 09/03/20251803) Infection Management: aseptic technique maintained Fever Reduction/Comfort Measures: lightweight bedding lightweight clothing Isolation Precautions: precautions maintained Problem: Mobility Impairment Goal: Optimal Mobility Intervention: Optimize Mobility Flowsheets (Taken 09/03/20251803) Activity Management: activity adjusted per tolerance activity encouraged Assistive Device Utilized: front wheel walker Positioning/Transfer Devices: repositioning sheet Problem: Orthopaedic Fracture Goal: Effective Oxygenation and Ventilation Intervention: Promote Airway Secretion Clearance Flowsheets (Taken 09/03/20251803) Activity Management: activity adjusted per tolerance activity encouraged Breathing Techniques/Airway Clearance: deep/controlled cough encouraged Cough And Deep Breathing: done with encouragement Problem: Pain Acute Goal: Optimal Pain Control and Function Intervention: Optimize Psychosocial Wellbeing Flowsheets (Taken 09/03/20251803) Supportive Measures: active listening utilized decision-making supported relaxation techniques promoted self-reflection promoted self-care encouraged problem-solving facilitated mindfulness techniques promoted self-responsibility promoted verbalization of feelings encouraged Diversional Activities: smartphone television Spiritual Activities Assistance: music provided spiritual support provided Problem: Self-Care Deficit Goal: Improved Ability to Complete Activities of Daily Living Intervention: Promote Activity and Functional [place] Flowsheets (Taken 09/03/20251803) Activity Assistance Provided: assistance, 1 person Adaptive Equipment Use: use encouraged Self-Care Promotion: BADL personal objects within reach BADL personal routines maintained independence encouraged meal set-up provided * Consults - Nathalia Oshea PA - 09/03/2025 12:51 PM ESTAssociated Order(s): Inpatient consult to Anesthesia Images from the original note were not included. Inpatient consult to Anesthesia Consult performed by: Nathalia Oshea PA Consult ordered by: Emain Cunningham DO Reason for consult: Pre anesthesia evaluation and optimization Reason For Consult Pre anesthesia evaluation and optimization Requesting Service: [facility] Requested Date/Time: 09/03/25 History Of Present Illness Rachel Roger is a 85 y.o. female presenting with mechanical ground level fall, resulting in left intertrochanteric fracture. PMH of HTN, HLD, DMII (per chart review, pt denies), NARAYAN (intermittently uses CPAP), hypothyroidism, Hiatal hernia, SAH, PFO, and CAD s/p PCI to ostial/mid LAD in 2015(Cath in 2020 showed patent stent) and aortic stenosis s/p TAVR 01/19/22, hx Roberts's esophagus, anemia. Patient states she was in her home last night walking to the kitchen when she felt her leg 'give out' and fell onto the left side. She denies LOC, tripping, or dizziness. She has been in her normal state of health prior to fall. She remains active, goes to the [facility] and walks for exercise and cares for her blind . No chest pain. Last follow up with [facility] in 2023, was doing well and ECHO was with preserved LVEF, normal AV gradient. Medical/Surgical/Social/Family History Past Medical History[1] Surgical History[2] Social History[3] Family History[4] Allergies Amoxicillin-pot clavulanate Medications Current Medications[5] Review of Systems Review of Systems Constitutional: Negative for fever. HENT: Negative for sore throat. Respiratory: Negative for cough, shortness of breath and wheezing. Cardiovascular: Negative for chest pain and palpitations. Gastrointestinal: Negative for abdominal pain. Genitourinary: Negative for hematuria. Musculoskeletal: Positive for gait problem. Skin: Negative for rash. Neurological: Negative for seizures and syncope. Psychiatric/Behavioral: Negative for confusion. Physical Exam Physical Exam HENT: Head: Normocephalic. Nose: Nose normal. Mouth/Throat: Mouth: Mucous membranes are moist. Eyes: Pupils: Pupils are equal, round, and reactive to light. Cardiovascular: Rate and Rhythm: Normal rate and regular rhythm. Pulmonary: Breath sounds: Normal breath sounds. Abdominal: Palpations: Abdomen is soft. Musculoskeletal: Comments: Fracture Skin: General: Skin is warm and dry. Neurological: General: No focal deficit present. Mental Status: She is alert. Psychiatric: Mood and Affect: Mood normal. Last Recorded Vitals Blood pressure (!) 114/44, pulse 50, temperature 37 ??C (98.6 ??F), temperature source Oral, resp. rate 8, height 1.575 m (5' 2 ), weight 50.5 kg (111 lb 5.3 oz), SpO2 94%. Results Review I have reviewed the latest lab and imaging results with the following pertinent results: Labs in last 18 hours CBC WBC 9.36 Hb 9.1 (L) Plt 79 (L) Hct 27.4 (L) ANC 8.24 (H) INR 1.1, PTT ??, Anti-Xa ?? BMP Na 130 (L) Cl 98 BUN 37 (H) Glu 191 (H) K 5.6 (H) Co2 25 Cr 3.17 (H) Ca 9.0 iCa ?? Mg 2.0, Phos 3.8 Lactate ?? LFT AST 37 (H) AlkPhos 47 T Prot 5.8 (L) ALK 15 Bili 0.2 Alb ?? D.Bili ?? No echocardiogram results found for the past 12 months 09/03/25 1303 XR Chest 1 View Performed: 09/03/25 1020 Final Impression: No acute finding. CRITICAL RESULT: No. COMMUNICATION: Per this written report. Drafted by Ava Coughlin MD on 09/03/2025 1:02 PM Final report signed by Ava Coughlin MD on 09/03/2025 1:02 PM 09/03/25 1210 XR Hip Left 2 or 3 Views Performed: 09/03/25 1052 Final Impression: Unchanged appearance of intratrochanteric left femoral fracture. CRITICAL RESULT: No. COMMUNICATION: Per this written report. Drafted by Ava Coughlin MD on 09/03/2025 12:07 PM Final report sig... 09/03/25 0910 XR Hip Left 2 or 3 Views Including Pelvis Performed: 09/03/25 0810 Final Impression: Intertrochanteric left femur fracture as described above. Diffuse osteopenia and degenerative change as described above CRITICAL RESULT: No. COMMUNICATION: Per this written report. METS: at least 4 RCRI: moderate risk of MACE Ariscat: Moderate risk of in hospital post operative pulmonary complications Assessment & Plan Displaced intertrochanteric fracture of left femur, initial encounter for closed fracture Agree with repeat ECHO prior to anesthesia given hx TAVR (ordered) Recommend correcting and maintaining electrolytes within normal limits. (Goal K <5.0 and Na >130) Ensure current type and screen on day of surgery, please have plts on hold for OR Recommend instructing patient on incentive spirometry use Discussed with Dr. Jolly. Thank you for the consult, please call with any questions or concerns. Anesthesia will re-evaluate patient on day of procedure. Nathalia Oshea PA-C Department of Anesthesia [id number] [1] Past Medical History: Diagnosis Date Acute UTI (urinary tract infection) 04/26/25 ASHLEY (acute kidney injury) 04/26/25 Conversions - Other Allergic Bronchitis With Status Asthmaticus Conversions - Other Anemia Conversions - Other Angina Pectoris Conversions - Other Aortic Stenosis Conversions - Other Roberts's Esophagus Conversions - Other Dysphagia Conversions - Other Subarachnoid Hemorrhage Encephalopathy 04/26/25 Old myocardial infarction History of myocardial infarction Personal history of other diseases of the nervous system and sense organs History of sleep apnea Personal history of other specified conditions History of chest pain Transient ischemic attack 12/08/2021 [2] Past Surgical History: Procedure Laterality Date CARDIAC CATHETERIZATION N/A HYSTERECTOMY N/A TUBAL LIGATION N/A [3] Social History Tobacco Use Smoking status: Former Current packs/day: 0.00 Average packs/day: 0.3 packs/day for 30.0 years (7.5 ttl pk-yrs) Types: Cigarettes Start date: 1964 Quit date: 1994 Years since quittin. Passive exposure: Past Smokeless tobacco: Never Vaping Use Vaping status: Never Used Substance Use Topics Alcohol use: Yes Drug use: Never [4] Family History Problem Relation Name Age of Onset Dementia Mother Heart disease Father Hypertension Father Cervical cancer Sister Diabetes Sister Anesthesia problems Neg Hx Malig Hyperthermia Neg Hx [5] Current Facility-Administered Medications Medication Dose Route Frequency Provider Last Rate Last Admin [Transfer Hold] acetaminophen (Tylenol) tablet 650 mg 650 mg Oral q8h Audelia Roca, DO [Transfer Hold] glucose (Glutose) 40 % oral gel 15-30 grams of glucose 15-30 grams of glucose Sublingual q15 min PRN Audelia Roca, DO Or [Transfer Hold] dextrose 10 % (D10W) bolus 125 mL 125 mL Intravenous q15 min PRN Audelia Roca,DO Or [Transfer Hold] dextrose 10 % (D10W) bolus 250 mL 250 mL Intravenous q15 min PRN Audelia Roca,DO Or [Transfer Hold] glucagon (human recombinant) injection 1 mg 1 mg Intramuscular q15 min PRN Audelia Roca, DO [Transfer Hold] melatonin tablet 3 mg 3 mg Oral Nightly PRN Audelia Roca, DO [Transfer Hold] ondansetron ODT (Zofran-ODT) disintegrating tablet 4 mg 4 mg Oral q6h PRN Audelia Roca, DO Or [Transfer Hold] ondansetron (Zofran) injection 4 mg 4 mg Intravenous q6h PRN Audelia Roca, DO Or [Transfer Hold] ondansetron (Zofran) 4 MG/5ML solution 4 mg 4 mg Oral q6h PRN Audelia Roca, DO [Transfer Hold] oxyCODONE (Roxicodone) immediate release tablet 5 mg 5 mg Oral q6h PRN Audelia Roca, DO [Transfer Hold] polyethylene glycol (Miralax) packet 17 g 17 g Oral Daily Audelia Roca, DO [Transfer Hold] senna (Senokot) tablet 17.2 mg 2 tablet Oral Nightly Audelia Roca, DO [Transfer Hold] sodium chloride 0.9 % flush 10 mL 10 mL Intravenous q12h Audelia Roca, And [Transfer Hold] sodium chloride 0.9 % flush 10 mL 10 mL Intravenous PRN Audelia Roca, DO * Consults - Terrence Thomason APRN - 09/03/2025 12:15 PM EST Consults [facility] Consult Note Patient Rachel Roger; 85 y.o. female Attending Emani Cunningham DO Admit Date 09/03/2025 Hospital Day 0 Reason for Consult: Ms. Rachel Roger is a 85 y.o. female presenting with left hip fracture after fall in kitchen. PMH: HTN Aortic Stenosis s/p prosthetic valve replacement in 2001 CAD s/p PCI NARAYAN DM2 Hypothyroid HLD SAH in 2007 Osteoporosis history: DEXA: remote history Falls: denies Ambulation: independent at baseline Prior fractures: Left tibial pl fx 2013 Prior treatment for osteoporosis: denies Smoking: former smoker Alcohol: denies Diet: poor Weight: BMI 20.3 Exercise/Physical activity: limited activity Home living situation: lives in [place] REVIEW OF SYSTEMS Constitutional: No fever, weight loss. Eyes: No vision changes. HEENT: No headache, hearing loss, mouth sores. Cardiovascular: No chest pain or discomfort, lower extremity swelling. Respiratory: No , cough, hemoptysis; shortness of breath on exertion. Gastrointestinal: No heartburn, loss of appetite, nausea, vomiting, bowel disturbance. Genitourinary: No hematuria, incontinence; dysuria, retention Musculoskeletal: Not ambulatory Integumentary: No rash, photosensitivity, bruising Neurological: No seizure, vertigo, focal weakness, paresthesia. Psychiatric: No anxiety. No depressed mood. Endocrine: No polyuria, hirsutism. Hematologic/Lymphatic: No bruising, blood transfusion Past Medical History: Past Medical History[1] Family History[2] Past Surgical History: Surgical History[3] Family History[4] Social History Tobacco Use Smoking status: Former Current packs/day: 0.00 Average packs/day: 0.3 packs/day for 30.0 years (7.5 ttl pk-yrs) Types: Cigarettes Start date: 1964 Quit date: 1994 Years since quittin.9 Passive exposure: Past Smokeless tobacco: Never Substance Use Topics Alcohol use: Yes Allergies[5] Medications: Prior to Admission medications Medication Sig Start Date End Date Taking? Authorizing Provider amLODIPine (Norvasc) 10 MG tablet Take 1 tablet (10 mg) by mouth 1 (one) time each day. 08/27/21 Provider, Historical atorvastatin (Lipitor) 80 MG tablet Take 1 tablet (80 mg) by mouth every night. 07/28/17 Provider, Historical busPIRone (Buspar) 5 MG tablet Take 1 tablet (5 mg) by mouth 2 (two) times a day if needed. 10/16/23Provider, Historical Calcium Polycarbophil (FIBERCON PO) Take by mouth. Takes 3 am and 3 pm Provider, Historical carvedilol (Coreg) 12.5 MG tablet Take 1 tablet (12.5 mg) by mouth 2 (two) times a day. 09/01/21 Provider, Historical cholecalciferol (Vitamin D-3) 50 MCG (2000 UT) capsule Take by mouth 1 (one) time each day. 02/05/16 Provider, Historical cyanocobalamin (Vitamin B-12) 1000 MCG tablet Take 1 tablet (1,000 mcg) by mouth 1 (one) time each day. 12/22/17 Provider, Historical escitalopram (Lexapro) 10 MG tablet Take 1 tablet (10 mg) by mouth 1 (one) time each day. 12/13/23 Provider, Historical isosorbide mononitrate ER (Imdur) 30 MG 24 hr tablet Take 1 tablet (30 mg total) by mouth 1 (one) time each day. Do not crush or chew. 11/19/21 02/01/24 Ilya High, DO Jardiance 25 MG Take 1 tablet (25 mg) by mouth 1 (one) time each day. Provider, Historical levothyroxine (Synthroid, Levoxyl) 112 MCG tablet Take 1 tablet (112 mcg) by mouth 1 (one) time each day. 11/24/23 Provider, Historical memantine (Namenda) 5 MG tablet Take 1 tablet (5 mg) by mouth 2 (two) times a day. 01/05/23 Provider,Historical Multiple Vitamin (multivitamin) tablet Take 1 tablet by mouth 1 (one) time each day. Provider, Historical omega-3 (Fish Oil) 1000 MG capsule once daily. 02/05/16 Provider, Historical Viberzi 100 MG tablet Take 100 mg by mouth 2 (two) times a day. 01/04/24 Provider, Historical zinc gluconate 50 MG tablet Take 1 tablet (50 mg) by mouth 1 (one) time each day. Provider, Historical Current Scheduled Medications[6] Current Continuous Medications[7] PHYSICAL EXAMINATION Visit Vitals BP 137/58 Pulse 54 Temp 37 ??C (98.6 ??F) (Oral) SpO2 90% Constitutional: No acute distress. Weight 50.5 kg (111 lb 5.3 oz) Height 1.575 m (5' 2 ) Body mass index is 20.36 kg/m??. Body surface area is 1.49 meters squared. HEENT: normal. Cardiovascular: No JVD, no edema Pulmonary: Normal effort of breathing. Abdominal: no distension Musculoskeletal: Normal LE movements; NWB status Skin: No rashes or lesions. Neurologic: No focal deficits Psychiatric: Orientated to person, place, and time: Normal Mood and affect LAB RESULTS Renal Panel: Lab Results Component Value Date NA 130 (L) 09/03/2025 K 5.6 (H) 09/03/2025 CL 98 09/03/2025 CO2 25 09/03/2025 BUN 37 (H) 09/03/2025 CREATININE 3.17 (H) 09/03/2025 EGFR 14.0 09/03/2025 CA 9.4 11/22/2020 PHOS 3.8 09/03/2025 ALBUMIN 3.7 09/03/2025 MBD: Lab Results Component Value Date CA 9.4 11/22/2020 CALCIUM 9.0 09/03/2025 PHOS 3.8 09/03/2025 MG 2.0 09/03/2025 VITAMIN D 25 No results found for: VITD25 HEPATIC Lab Results Component Value Date ALT 15 09/03/2025 AST 37 (H) 09/03/2025 ALKPHOS 47 09/03/2025 CBC: Lab Results Component Value Date WBC 9.36 09/03/2025 RBC 3.06 (L) 09/03/2025 HGB 9.1 (L) 09/03/2025 HCT 27.4 (L) 09/03/2025 PLT 79 (L) 09/03/2025 MCV 90 09/03/2025 MCH 29.7 09/03/2025 MCHC 33.2 09/03/2025 RDW 13.9 09/03/2025 NRBC 0.0 09/03/2025 Radiology: XR Hip Left 2 or 3 Views Result Date: 09/03/2025 Narrative: CLINICAL INDICATION: traction view TECHNIQUE: XR HIP LEFT 2 OR 3 VIEWS COMPARISON: 2 hours prior FINDINGS: Unchanged appearance of intratrochanteric left femoral fracture. Diffuse osteopenia. Impression: Unchanged appearance of intratrochanteric left femoral fracture. CRITICAL RESULT: No. COMMUNICATION: Per this written report. Drafted by Ava Coughlin MD on 09/03/2025 12:07 PM Final reportsigned by Ava Coughlin MD on 09/03/2025 12:09 PM XR Hip Left 2 or 3 Views Including Pelvis XR Hip Left 2 or 3 Views Including Pelvis, XR Femur Left 2+ Views XR Hip Left 2 or 3 Views Including Pelvis, XR Femur Left 2+ Views, XR Knee Left 3 Views Result Date: 09/03/2025 Narrative: CLINICAL INDICATION: Left femur fracture TECHNIQUE: XR HIP LEFT 2 OR 3 VIEWS, XR FEMUR LEFT 2+ VIEWS, XR KNEE LEFT 3 VIEWS COMPARISON: None. FINDINGS: AP view of the pelvis and 2 views of the left hip demonstrate normal position of the right femoral head within the acetabulum. The left femoral head is rotated due to intratrochanteric fracture of the left femur. The distal portion of the left femur is slightly displaced superiorly and is associated with the rotation of the proximal portion of the femur. The pubic symphysis and SI joints demonstrate degenerative change but are otherwise unremarkable. The sacral arcs have a normal smooth symmetric contour. There is soft tissue hemato ma over the lateral aspect of the left hemipelvis. AP and lateral views of the left femur redemonstrate the left intertrochanteric femur fracture as described above. There is diffuse osteopenia. There are vascular calcifications. There is normal position of the patella. There is severe degenerativechange at the knee. 3 views of the left knee demonstrate orthopedic hardware with screws extending a cross the tibial plateau and metal plate and screws along the lateral aspect of the proximal tibia.There is no acute fracture appreciated. Impression: Intertrochanteric left femur fracture as described above. Diffuse osteopenia and degenerative change as described above CRITICAL RESULT: No. COMMUNICATION: Per this written report. Drafted by Rachel Rahman MD on 09/03/2025 9:03 AM Final report signed by Rachel Rahman MD on 09/03/2025 9:09 AM ASSESSMENT/PLAN: Ms. Rachel Roger is a 85 y.o. female admitted with left hip fracture after fall in kitchen. Osteoporosis history Past DXA: years ago Past fractures: Left tibial pl fx 2013 Risk factors for bone loss: Age Postmenopausal status Frailty Low BMI Poor diet Physical Inactivity T2DM Labs show Vit D 20.9, PTH 119, ICA 4.8, Creatinine 2.70, eGFR 17, BSAP pending Clinical impression: Patient likely has age-related osteoporosis; complicating factors: Clinical assessment of recurrent fracture risk: high Osteoporosis treatment: Patient is not a candidate for IV zoldedronic acid due to Crcl of 10.8. Recommend antiresorptive as outpatient. Recommendations: Continue Vit D Continue oral calcium supplementation Diet Would benefit from increasing dietary protein intake to 60 g per day; consider nutrition referral and protein supplements.. Fall Prevention: Address fall risk Discharge referral: Please enter ambulatory referral request prior to discharge for follow up in bone clinic Bone labs on follow up - will need DXA and bone markers (levels will be artefctually increased withacute # situation) as an outpatient to determine treatment Please let us also know prior to discharge so we can make sure of the coordination. Thank you for referral and the opportunity to participate in Ms. Rachel Roger's care. Please let me know if any additional questions [1] Past Medical History: Diagnosis Date Acute UTI (urinary tract infection) 04/26/25 ASHLEY (acute kidney injury) 04/26/25 Conversions - Other Allergic Bronchitis With Status Asthmaticus Conversions - Other Anemia Conversions - Other Angina Pectoris Conversions - Other Aortic Stenosis Conversions - Other Roberts's Esophagus Conversions - Other Dysphagia Conversions - Other Subarachnoid Hemorrhage Encephalopathy 04/26/25 Old myocardial infarction History of myocardial infarction Personal history of other diseases of the nervous system and sense organs History of sleep apnea Personal history of other specified conditions History of chest pain Transient ischemic attack 12/08/2021 [2] Family History Problem Relation Name Age of Onset Dementia Mother Heart disease Father Hypertension Father Cervical cancer Sister Diabetes Sister Anesthesia problems Neg Hx Malig Hyperthermia Neg Hx [3] Past Surgical History: Procedure Laterality Date CARDIAC CATHETERIZATION N/A HYSTERECTOMY N/A TUBAL LIGATION N/A [4] Family History Problem Relation Name Age of Onset Dementia Mother Heart disease Father Hypertension Father Cervical cancer Sister Diabetes Sister Anesthesia problems Neg Hx Malig Hyperthermia Neg Hx [5] Allergies Allergen Reactions Amoxicillin-Pot Clavulanate Unknown - Patient states they do not know rxn details [6] [Transfer Hold] acetaminophen, 650 mg, Oral, q8h [Transfer Hold] polyethylene glycol, 17 g, Oral, Daily [Transfer Hold] senna, 2 tablet, Oral, Nightly [Transfer Hold] sodium chloride, 10 mL, Intravenous, q12h [7] Cosigned by Audelia Bunch MD at 09/06/2025 11:42 AM EST Associated attestation - Audelia Bunch MD - 09/06/2025 11:42 AM EST Signature only. * Consults - Zoie Vásquez PA - 09/03/2025 12:14 PM ESTAssociated Order(s): Inpatient consult to Bone Mineral Metabolism Inpatient consult to Bone [facility] Metabolism Consult performed by: Zoie Vásquez PA Consult ordered by: Emani Cunningham DO [facility] Consult Note Patient Rachel Roger; 85 y.o. female Attending Emani Cunningham DO Admit Date 09/03/2025 Hospital Day 0 Reason for Consult: MsLiz Roger is a 85 y.o. female presenting with left hip fracture after fall in kitchen. Full consult note will follow Cosigned by Audelia Bunch MD at 09/06/2025 12:08 PM EST Associated attestation - Audelia Bunch MD - 09/06/2025 12:08 PM EST Signature only. * Hospital Course - Pita Muhammad MD - 09/03/2025 11:15 AM EST 85 y.o. female with a PMHx of Aortic Stenosis s/p TAVR 01/19/2022 with a 23mm Shannon valve, CAD s/pPCI to ostial/mid LAD in 2015, hx of PFO seen on bubble study in 2007, SAH in 2007, HTN, HLD, T2DM not on insulin, NARAYAN, depression, memory loss, and hypothyroidism who presents with proximal left femur fracture after sustaining a ground level fall. Now s/p L intertrochanteric femur fracture cephalomedullary nail on 09/04/25, recovered well and mobilizing with assistance. Acute Conditions: #Left Intertrochanteric Femur Fracture - Mechanism: Mechanical - Orthopedic surgery consulted: yes and s/p OR on 09/04/25 s/p L intertrochanteric femur fracture cephalomedullary nail. - CT Bony Pelvis: Acute comminuted angulated intertrochanteric left femur fracture. Degenerative changes and demineralization as described. Cummings hyperdense structure in the region of the right renal pelvis which was present on prior radiograph and may represent a large renal calculus. - Pain control on discharge: APAP q6h PRN - Bowel regimen: continue lokelma once daily until BMP recheck on 09/10 to monitor potassium. Continue miralax, senna PRN to target daily BM - BMD labs sent, consulted: not candidate for zolendronic acid. 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 - unclear baseline but last recorded in our system is from 01/20/2022 showing Cr of 1.01 - Cr at admission is 3.17, had Cr of 2.17 at her last PCP visit on 08/24/25 with eGFR of 22 - recent UTI with bactrim prescribed which could directly result in kidney injury - pt notes was down for approx 4hrs at home after fall - no signs of ATN on UA - CK level elevated in 800s - cystatin C of 2.09, likely this is closer to her baseline Cr levels - Cr stable at 2.25 on day of discharge Plan: - hold Lomotil on discharge w/c/f possible drug induced kidney injury 2/2 chronic use - follow up repeat BMP 09/10/2025 for Cr follow up #Disorder of Fluids and Electrolytes with Hyperkalemia and Hyponatremia - etiology is likely from ASHLEY in combination with poor PO intak - now s/p 2 rounds of HyperK protocol - potassium elevated again after surgery to 5.8 - initiated lokelma and K improved to 4.2 Plan: - repeat BMP 09/10/2025 for K recheck - continue lokelma until 09/10/2025 and reassess need to continue - cntinue miralax/senna on PRN basis to target 1-2 BM daily #thrombocytopenia - platelets on admission of 79k with baseline of 130 days prior to admission - thrombocytopenia possibly 2/2 folate deficiency vs MDS (T4 score not severe) Plan: - start folic acid for 1-week duration - CBC recheck on 09/10/2025 to monitor platelets - if platelet count <50k, reconsider DVT ppx and hold #grade 1 diastolic dysfunction - echo obtained: EF of 62% and shows grade 1 diastolic dysfunction, prosthetic aortic valve is appropriate Plan: - PCP to f/u outpatient #Bone Mineral Disease with Hyperparathyroidism likely Secondary to Vitamin D deficiency - continue Vit D replacement and Ca supplmenetation (was not candidate for zolendronic acid) Chronic Conditions: #CAD: continue ASA, last cath in 2020 showed patent stent, continue imdur #HTN: resume home lisinopril, coreg #T2DM: pt notes controlled with diet, resume home jardiance #Memory loss with mild cognitive impairment: on memantidine #Hyperlipidemia: resumed home atorvastatin #Depression with anxiety: resumed home lexapro #Hypothyroidism: resumed home synthroid #Irritable bowel syndrome with diarrhea: will hold Lomotil - could be contributing to her kidney injury/dysfunction #PFO: seen on bubble study in 2007 #SAH: occurred in 2007 #NARAYAN: does not admit to cpap at home #Hx of TIA * H&P - Audelia Roca DO - 09/03/2025 10:35 AM ESTAssociated Order(s): Consult to Hospital Medicine - Verdi Images from the original note were not included. GME Fragility Fracture History & Physical Consult to [facility] Consult performed by: Audelia Roca DO Consult ordered by: Dominick Curtis MD Subjective 09/03/2025 Chief Complaint: Chief Complaint Patient presents with Fall History Of Present Illness Rachel Roger is a 85 y.o. female with a PMHx of Aortic Stenosis s/p TAVR 01/19/2022 with a 23mmEdwards valve, CAD s/p PCI to ostial/mid LAD in 2016, hx of PFO seen on bubble study in 2007, SAH in 2007, HTN, HLD, T2DM not on insulin, NARAYAN, depression, memory loss, and hypothyroidism. To note: patient is not a great historian. She presents with proximal left femur fracture after sustaining a ground level fall last night. Pt states she was walking into her kitchen when she felt like her knees locked up and her legs get weak and give out. She denies losing conscious or hitting her head. She states that she has never had anything like this happen prior. Denies former hx of syncope or arrhythmias. Pt states she immediately felt intense pain in her left hip. She notes the pain was not unbearable if she remained still but with movement intensified. Pt went to OSH for evaluation after fall to which they found her to have a left femur fracture and she was transported to . OSH also performed imaging for CT head and CT C-spine that were both negative for acute fracture or injury. Pt states she lives at home with her . She notes she does daily chores around the house and is able to complete all ADLs herself and helps her spouse complete his. She cooks meals and still drives. She notes she is active and goes to the [facility] regularly. She has no issue with stairs but states they just moved to a new house and this new house does not have stairs. She denies any ischemic heart disease or heart health history aside from aortic valve replacement but based on chart review this information is not correct as pt has formal diagnosis of CAD s/p PCI to ostial/mid LAD in 2016, Of significance, pt mentions she has historically struggled with kidney infections and has had a recent UTI this past week to which she finished a course of Bactrim yesterday evening on 09/02/25. She currently denies any soa, chest pain, abdominal pain, fevers or any other modifying factors. Her pain is currently well controlled after ED provided her IV morphine and dilaudid. Her Blood pressures are more soft after IV pain meds and nerve block. Labs from ED of significance: Platelets of 79k HgB of 9.1 Cr of 3.17 K of 5.6 Na of 130 Past Medical History Past Medical History[1] Surgical History Surgical History[2] Family History Family History[3] Social History Social History[4] Home Medications Current Outpatient Medications Medication Instructions amLODIPine (NORVASC) 10 mg, Oral, Daily atorvastatin (LIPITOR) 80 mg, Oral, Nightly busPIRone (BUSPAR) 5 mg, Oral, 2 times daily PRN Calcium Polycarbophil (FIBERCON PO) Oral, Takes 3 am and 3 pm carvedilol (COREG) 12.5 mg, Oral, 2 times daily cholecalciferol (Vitamin D-3) 50 MCG (1999 UT) capsule Oral, Daily cyanocobalamin (VITAMIN B-12) 1,000 mcg, Oral, Daily escitalopram (LEXAPRO) 10 mg, Oral, Daily isosorbide mononitrate ER (IMDUR) 30 mg, Oral, Daily, Do not crush or chew. Jardiance 25 mg, Oral, Daily levothyroxine (SYNTHROID, LEVOXYL) 112 mcg, Oral, Daily memantine (NAMENDA) 5 mg, Oral, 2 times daily Multiple Vitamin (multivitamin) tablet 1 tablet, Oral, Daily omega-3 (Fish Oil) 1000 MG capsule once daily. Viberzi 100 mg, Oral, 2 times daily zinc gluconate 50 mg, Oral, Daily Review of Systems Constitutional: Negative for activity change, appetite change, fatigue and fever. Respiratory: Negative for shortness of breath and wheezing. Cardiovascular: Negative for chest pain and palpitations. Gastrointestinal: Negative for abdominal distention and abdominal pain. Genitourinary: Positive for dysuria (had UTI last week that has been treated with abx). Negative for difficulty urinating. Skin: Negative for color change and rash. Neurological: Negative for dizziness, syncope, light-headedness and headaches. Psychiatric/Behavioral: Negative for agitation and behavioral problems. Objective Blood pressure (!) 146/50, pulse 57, temperature 37 ??C (98.6 ??F), temperature source Oral, resp. rate 12, height 1.575 m (5' 2 ), weight 50.5 kg (111 lb 5.3 oz), SpO2 97%. Physical Exam Constitutional: General: She is not in acute distress. Appearance: She is not ill-appearing. HENT: Head: Normocephalic and atraumatic. Right Ear: External ear normal. Left Ear: External ear normal. Eyes: General: No scleral icterus. Right eye: No discharge. Left eye: No discharge. Conjunctiva/sclera: Conjunctivae normal. Cardiovascular: Rate and Rhythm: Regular rhythm. Bradycardia present. Heart sounds: No murmur heard. Pulmonary: Effort: Pulmonary effort is normal. Breath sounds: No wheezing, rhonchi or rales. Abdominal: General: Abdomen is flat. Bowel sounds are normal. There is no distension. Palpations: Abdomen is soft. Tenderness: There is no abdominal tenderness. There is no guarding. Musculoskeletal: Right lower leg: Edema present. Left lower leg: Edema present. Skin: General: Skin is warm and dry. Coloration: Skin is not jaundiced. Findings: No rash. Neurological: General: No focal deficit present. Mental Status: She is alert and oriented to person, place, and time. Mental status is at baseline. Psychiatric: Mood and Affect: Mood normal. Behavior: Behavior normal. Data: I have personally reviewed the following labs and used them to guide clinical decision making. CBC WBC 9.36 Hb 9.1 (L) Plt 79 (L) Hct 27.4 (L) ANC 8.24 (H) INR 1.1, PTT ??, Anti-Xa ?? BMP Na 130 (L) Cl 98 BUN 37 (H) Glu 191 (H) K 5.6 (H) Co2 25 Cr 3.17 (H) Ca 9.0 iCa ?? Mg ??, Phos ?? Lactate ?? LFT AST 37 (H) AlkPhos 47 T Prot 5.8 (L) ALK 15 Bili 0.2 Alb ?? D.Bili ?? Imaging: I have personally reviewed and independently interpreted the following imaging and agree with the formal interpretation. XR Hip Left 2 or 3 Views Including Pelvis, XR Femur Left 2+ Views, XR Knee Left 3 Views Narrative: CLINICAL INDICATION: Left femur fracture TECHNIQUE: XR HIP LEFT 2 OR 3 VIEWS, XR FEMUR LEFT 2+ VIEWS, XR KNEE LEFT 3 VIEWS COMPARISON: None. FINDINGS: AP view of the pelvis and 2 views of the left hip demonstrate normal position of the right femoral head within the acetabulum. The left femoral head is rotated due to intratrochanteric fracture of the left femur. The distal portion of the left femur is slightly displaced superiorly and is associated with the rotation of the proximal portion of the femur. The pubic symphysis and SI joints demonstrate degenerative change but are otherwise unremarkable. The sacral arcs have a normal smooth symmetric contour. There is soft tissue hematoma over the lateral aspect of the left hemipelvis. AP and lateral views of the left femur redemonstrate the left intertrochanteric femur fracture as described above. There is diffuse osteopenia. There are vascular calcifications. There is normal position of the patella. There is severe degenerative change at the knee. 3 views of the left knee demonstrate orthopedic hardware with screws extending across the tibial plateau and metal plate and screws along the lateral aspect of the proximal tibia. There is no acute fracture appreciated. Impression: Intertrochanteric left femur fracture as described above. Diffuse osteopenia and degenerative change as described above CRITICAL RESULT: No. COMMUNICATION: Per this written report. Drafted by Rachel Rahman MD on 09/03/2025 9:03 AM Final report signed by Rachel Rahman MD on 09/03/2025 9:09 AM Imaging Per Chart Review: Imaging Echo, Adult Transthoracic Complete Result Date: 02/01/2024 Left Ventricle: Based on the linear dimension and/or 2D volumes, the left ventricle is normal in size. There is normal left ventricular myocardial thickness and mass. The left ventricular systolic function is normal. The LVEF as measured by biplane volume is 64%. The left ventricular filling pressure is indeterminate. Right Ventricle: The right ventricle is normal in size. There is normal right ventricular wall thickness. The right ventricular systolic function is normal. Aortic Valve: There james appropriately positioned transcatheter bioprosthetic valve (23 mm Shannon) that is well-seated. The bioprosthetic leaflets are thin and move normally. The peak gradient is 23 mmHg. The mean gradient is 12 mmHg. The gradient is normal for this prosthetic valve. Pericardium: No pericardial effusion. Compared to the most recently available prior study, and allowing for differences in image qualityand technique, there is no significant interval change noted. Assessment/Plan Assessment/ Plan Active Problems: There are no active Hospital Problems. Rachel Roger is a 85 y.o. female with PMH as per above who presents with acute left femur fracture after ground level mechanical fall in her kitchen. Acute Conditions: #Left Intertrochanteric Femur Fracture - Mechanism: Mechanical - Orthopedic surgery consulted: yes - CT Bony Pelvis: pending - Pain control: APAP q6 scheduled & oxycodone q6 hours prn - Bowel regimen: miralax/senna - BMD labs sent, consulted: pending official BMD note - PT/OT: pending eval post op #Perioperative Risk Stratification - RCRI: 3 - METS: METS >4 - EKG personally reviewed: Sinus Bradycardia with nonspecific ST changes in V1 and V2 - Active cardiac condition such as chest pain, accelerating chest pain, dyspnea on exertion, new oruncontrolled arrhythmia are: Not Present - Date of last dose of antiplatelet/anticoagulation: asa on 09/02/25 morning - Decompensated organ condition (including acute CHF, acute COPD, acute decompensated cirrhosis) are: Not Present - Patient has NARAYAN/home oxygen requirement: none - Echo is: Required RECOMMENDTIONS: - Medical Optimization: For medical optimization prior to OR, patient requires: TTE given her significant valvular history and bilateral LE pitting edema on exam along with EKG showing ST depressionsin anterior leads. Cr also up trending and is >3. Patient will also need stabilization in her kidney function prior to OR. #Clinical Frailty Score - score of 2 points #Non-Oliguric Acute Kidney Injury - unclear baseline but last recorded in our system is from 01/20/2022 showing Cr of 1.01 - Cr at admission is 3.17, had Cr of 2.17 at her last PCP visit - recent UTI with bactrim prescribed - pt notes was down for approx 4hrs at home after fall Plan: - UA, cystatin c, CK level - trend Cr on morning labs - got 1L IV fluid bolus in ED - hold Lomotil as could be causing drug induced injury #Disorder of Fluids and Electrolytes with Hyperkalemia and Hyponatremia - etiology is likely from ASHLEY in combination with poor PO intake PLAN: - trend electrolytes on morning labs - will treat hyperkalemia at this time with HyperK protocol - sodium expected to resolve with fluids and PO intake #Unspecified Anemia likely suspected AOCD #Thrombocytopenia - platelets on admission of 79k with baseline of 130 from 3yrs ago - HgB of 9.1 on admission with baseline of 10.8 PLAN: - trend Hgb and platelets daily - if Hgb < 7 will need transfusion - if platelets <10k or if <50k with acute bleed will need transfusion - okay for DVT ppx if not going to OR this evening - ordered ferritin, iron studies, peripheral smear, retic count Chronic Conditions: #CAD: continue ASA, last cath in 2020 showed patent stent; hold imdur #HTN: home coreg #T2DM: pt notes controlled with diet, will utilize SSI; hold jardiance #Memory loss with mild cognitive impairment: on memantidine #Hyperlipidemia: resume home atorvastatin #Depression with anxiety: resume home lexapro #Hypothyroidism: resume home synthroid #Irritable bowel syndrome with diarrhea: will hold Lomotil - could be contributing to her kidney injury/dysfunction #PFO: seen on bubble study in 2007 #SAH: occurred in 2007 #NARAYAN: does not admit to cpap at home #Hx of TIA Care today included: HIGHRISK: Discussion of management/test with another provider: personally discussed with orthosurgery that patient will need ECHO prior to OR and that she is currently not optimized for OR or Unique labs ordered: ordered pro-BNP, Cystatin C, PTH, Vitamin D, iron studies, ferritin, protein electrophoresis, peripheral smear Code Status: Full code DVT ppx: pLOV Diet: cardiac, NPO at midnight Dispo: admit to fragility fracture service, dispo planning after OR with pt/ot recs Please note that all recommendations should be considered preliminary until this note is cosigned by the attending physician. Patient was seen and plan discussed with Dr. Cunningham. - Audelia Roca, DO Internal Medicine PGY-2 Epic Chat preferred [1] Past Medical History: Diagnosis Date Acute UTI (urinary tract infection) 04/26/25 ASHLEY (acute kidney injury) 04/26/25 Conversions - Other Allergic Bronchitis With Status Asthmaticus Conversions - Other Anemia Conversions - Other Angina Pectoris Conversions - Other Aortic Stenosis Conversions - Other Roberts's Esophagus Conversions - Other Dysphagia Conversions - Other Subarachnoid Hemorrhage Encephalopathy 04/26/25 Old myocardial infarction History of myocardial infarction Personal history of other diseases of the nervous system and sense organs History of sleep apnea Personal history of other specified conditions History of chest pain Transient ischemic attack 12/08/2021 [2] Past Surgical History: Procedure Laterality Date CARDIAC CATHETERIZATION N/A HYSTERECTOMY N/A TUBAL LIGATION N/A [3] Family History Problem Relation Name Age of Onset Dementia Mother Heart disease Father Hypertension Father Cervical cancer Sister Diabetes Sister Anesthesia problems Neg Hx Malig Hyperthermia Neg Hx [4] Social History Tobacco Use Smoking status: Former Current packs/day: 0.00 Average packs/day: 0.3 packs/day for 30.0 years (7.5 ttl pk-yrs) Types: Cigarettes Start date: 1964 Quit date: 1994 Years since quittin.9 Passive exposure: Past Smokeless tobacco: Never Vaping Use Vaping status: Never Used Substance Use Topics Alcohol use: Yes Drug use: Never Cosigned by Emani Cunningham DO at 09/04/2025 9:57 AM EST Associated attestation - Emnai Cunningham DO - 09/04/2025 9:57 AM EST I saw and evaluated the patient with the resident/fellow. I discussed the case with the resident/fellow and agree with the findings and plan as documented. Pt has significant cardiac history as mentioned below. Reports HOLLEY at baseline, but says that it has gradually worsened since last year. Given her s/p TAVR and the worsening HOLLEY, pt needs TTE. EKGwith peaked T waves in anterior leads, but looking back, this finding was on prior EKGs dating backto 2021. Pt is asymptomatic with those findings. Of note, after patient's peripheral nerve block, she became hypotensive without tachycardic response (however, she is on carvedilol). Ddx at the time included sedation from morphine and hydromorphone in the setting of impaired renal clearance given her ASHLEY, anaphylaxis to lidocaine (hypotension is only finding, no other signs of anaphylaxis, patient asymptomatic), complications related to nerve block including inadvertent systemic injection of lidocaine and vascular injury. Hb was downtrending, although drawn from a PIV, will recheck and likelygive blood if necessary. Pt does have the hip fracture, so could also be source of blood loss. * Consults - Araceli Fan PA - 09/03/2025 9:50 AM ESTAssociated Order(s): IP CONSULT TO ORTHOPAEDICS Orthopaedic Trauma Surgery Consult Time Consulted: 899 Time of Patient Evaluation: 919 Chief Complaint: Fall HPI: Rachel Roger is a 85 y.o. female with PMHx significant for HTN, HLD, type 2 diabetes, NARAYAN, hypothyroidism, CAD s/p PCI 2015, aortic stenosis s/p TAVR in 2021, SAH 2007 who presents to [facility] for OSH after a ground level fall. Patient states she was in her home last night walking to the kitchen when she felt her leg 'give out' and fell onto the left side. She denies LOC, tripping, or dizziness. She denies any antecedent pain in the left hip. Patient presented to OSH and was found to have a left intertrochanteric fracture and transferred to for higher level of care. Orthopedics was consulted for fracture management. Patient denies any numbness or tingling in the lower extr emities. She states she does not have any pain in any other area besides the left hip. Last Meal: 10pm 09/02 DVT/PE: Denies MRSA: Denies Anticoagulants: ASA 81 PCN: Denies Metal: Denies Past Medical History: Past Medical History[1] Medications Ordered Prior to Encounter[2] Past Surgical History: Surgical History[3] Left tibial plateau ORIF ~10 yrs ago Allergies: Allergies[4] Family History: Reviewed, non contributory Social History: Tobacco: Denies Alcohol: Denies Illicit substance use: Denies Lives: [employer] Occupation/Employment: Retired Ambulation: Independent at baseline Visit Vitals BP (!) 173/52 (BP Location: Right arm, Patient Position: Lying) Pulse 53 Temp 37 ??C (98.6 ??F) (Oral) SpO2 96% ROS: A 14 point review of systems was conducted and was negative except aforementioned in the HPI, and if present the following systems listed below Physical Exam: General: NAD. Speech is easily understandable Psych: AAOx3, appropriate mood and affect Eyes: EOMI, sclera anicteric HENMT: NCAT, mmm, good dentition GI: No obvious organomegaly Resp: Good effort, symmetric chest expansion, no respiratory difficulty CV: No lymphedema, peripheral perfusion intact, pulses as below Skin: No grossly palpable masses, rashes, or lesions are noted except those specifically mentioned below on each extremity Musculoskeletal Exam: Chest: Clavicles non tender to palpation Pelvis: Stable to AP/lateral compression RUE: Skin intact, no deformity, soft compartments, no pain with passive stretch, non tender to palpation ROM: Painless/stable at shoulder, elbow, and wrist Motor: Intact ER/IR, Delt, Bic, Tri, WF, WE, FF, FE, Fabd, EPL, FPL Sensory: Sensation intact to light touch axillary, radial, median, ulnar nn Vascular: 2+ radial pulse, cap refill < 2 sec LUE: Skin intact, no deformity, soft compartments, no pain with passive stretch, non tender to palpation ROM: Painless/stable at shoulder, elbow, and wrist Motor: Intact ER/IR, Delt, Bic, Tri, WF, WE, FF, FE, Fabd, EPL, FPL Sensory: Sensation intact to light touch axillary, radial, median, ulnar nn Vascular: 2+ radial pulse, cap refill < 2 sec RLE: Skin intact, no deformity, soft compartments, no pain with passive stretch, non tender to palpation ROM: Painless/stable at hip, knee, and ankle Motor: Intact HAbd, HF, KE, KF, TA, GSC, EHL, FHL, Ever Sensory: Sensation intact to light touch deep peroneal, superficial peroneal, tibial, sural, saphenous nn Vascular: 2+ dorsalis pedis and posterior tibial pulse, cap refill < 2 sec LLE: Skin intact, no deformity, soft compartments, no pain with passive stretch, non tender to palpation ROM: Painless/stable at hip, knee, and ankle Motor: Intact HAbd, HF, KE, KF, TA, GSC, EHL, FHL, Ever Sensory: Sensation intact to light touch deep peroneal, superficial peroneal, tibial, sural, saphenous nn Vascular: 2+ dorsalis pedis and posterior tibial pulse, cap refill < 2 sec Labs in last 18 hours: CBC WBC 9.36 Hb 9.1 (L) Plt ?? Hct 27.4 (L) INR 1.1, PTT ??, Anti-Xa ?? BMP Na 130 (L) Cl 98 BUN 37 (H) Glucose 191 (H) K 5.6 (H) CO2 25 sCr 3.17 (H) LFT AST 37 (H) ALP 47 T Prot 5.8 (L) ALT 15 Bili 0.2 Alb ?? Imaging: Radiographic studies including XR/CT were personally reviewed and demonstrate the following: - X-ray of left hip shows intertrochanteric femur fracture Assessment and Plan: Rachel Roger is a 85 y.o. female with the following orthopaedic injuries: 1. Acute, traumatic, closed left intertrochanteric fracture Weight bearing restrictions: NWB LLE Pain control per ED Please keep NPO at this time Hold AM DVT ppx Extremity marked and informed consent for surgery obtained To OR pending scheduling/availability for operative fixation of left intertrochanteric fracture TXA ANS consult for FIB 2 units pRBCs typed, crossed and held for OR Admit per institutional protocol F/U clearance Patient and plan were discussed with Dr. Cannon, please contact orthopaedic Trauma Floor Consult pager with additional questions: [phone] Araceli Fan PA-C Department of Orthopaedic Surgery and Sports Medicine 09/03/25 9:50 AM Consult Pager: [phone] Service Pager: [phone] [1] Past Medical History: Diagnosis Date Acute UTI (urinary tract infection) 04/26/25 ASHLEY (acute kidney injury) 04/26/25 Conversions - Other Allergic Bronchitis With Status Asthmaticus Conversions - Other Anemia Conversions - Other Angina Pectoris Conversions - Other Aortic Stenosis Conversions - Other Roberts's Esophagus Conversions - Other Dysphagia Conversions - Other Subarachnoid Hemorrhage Encephalopathy 04/26/25 Old myocardial infarction History of myocardial infarction Personal history of other diseases of the nervous system and sense organs History of sleep apnea Personal history of other specified conditions History of chest pain Transient ischemic attack 12/08/2021 [2] No current facility-administered medications on file prior to encounter. Current Outpatient Medications on File Prior to Encounter Medication Sig Dispense Refill amLODIPine (Norvasc) 10 MG tablet Take 1 tablet (10 mg) by mouth 1 (one) time each day. atorvastatin (Lipitor) 80 MG tablet Take 1 tablet (80 mg) by mouth every night. busPIRone (Buspar) 5 MG tablet Take 1 tablet (5 mg) by mouth 2 (two) times a day if needed. Calcium Polycarbophil (FIBERCON PO) Take by mouth. Takes 3 am and 3 pm carvedilol (Coreg) 12.5 MG tablet Take 1 tablet (12.5 mg) by mouth 2 (two) times a day. cholecalciferol (Vitamin D-3) 50 MCG (2000 UT) capsule Take by mouth 1 (one) time each day. cyanocobalamin (Vitamin B-12) 1000 MCG tablet Take 1 tablet (1,000 mcg) by mouth 1 (one) time each day. escitalopram (Lexapro) 10 MG tablet Take 1 tablet (10 mg) by mouth 1 (one) time each day. isosorbide mononitrate ER (Imdur) 30 MG 24 hr tablet Take 1 tablet (30 mg total) by mouth 1 (one) time each day. Do not crush or chew. 30 tablet 11 Jardiance 25 MG Take 1 tablet (25 mg) by mouth 1 (one) time each day. levothyroxine (Synthroid, Levoxyl) 112 MCG tablet Take 1 tablet (112 mcg) by mouth 1 (one) time each day. memantine (Namenda) 5 MG tablet Take 1 tablet (5 mg) by mouth 2 (two) times a day. Multiple Vitamin (multivitamin) tablet Take 1 tablet by mouth 1 (one) time each day. omega-3 (Fish Oil) 1000 MG capsule once daily. Viberzi 100 MG tablet Take 100 mg by mouth 2 (two) times a day. zinc gluconate 50 MG tablet Take 1 tablet (50 mg) by mouth 1 (one) time each day. [3] Past Surgical History: Procedure Laterality Date CARDIAC CATHETERIZATION N/A HYSTERECTOMY N/A TUBAL LIGATION N/A [4] Allergies Allergen Reactions Amoxicillin-Pot Clavulanate Unknown - Patient states they do not know rxn details Cosigned by Shane Cannon MD at 09/03/2025 4:35 PM EST * ED Provider Notes - Audrey Guzman MD - 09/03/2025 6:24 AM EST Images from the original note were not included. - HPI Chief Complaint Patient presents with Fall HPI Rachel Roger is a 85-year-old female with a past medical history of ASD, hypertension, diabetes, NARAYAN, hypothyroidism who presents to the emergency department with complaint of fall. Patient transferred from outside hospital due to left hip fracture. Patient reports she had stayed up late last night and walked into the kitchen. She denies loss of consciousness, tripping, lightheadedness, dizziness but reports that her legs just ???gave out?? . Reports she fell on her left hip but her pain symptoms have not been uncontrollable unless she moves. Outside hospital workup remarkable for CT head, CT C-spine which were both negative for acute fracture or injury. Patient History Past Medical History[1] Surgical History[2] Family History[3] Social History[4] Allergies: Allergies[5] Physical Exam ED Triage Vitals [09/03/25 0630] Temp Heart Rate Resp BP 36.8 ??C (98.2 ??F) 57 19 (!) 137/46 SpO2 Temp Source Heart Rate Source Patient Position 96 % Oral Monitor Lying BP Location FiO2 (%) Left arm -- Physical Exam Constitutional: General: She is not in acute distress. HENT: Head: Normocephalic. Comments: No facial swelling Mouth/Throat: Mouth: Mucous membranes are moist. Pharynx: Oropharynx is clear. Cardiovascular: Rate and Rhythm: Normal rate. Pulmonary: Effort: Pulmonary effort is normal. No respiratory distress. Breath sounds: Normal air entry. Comments: Speaking full sentences. Symmetric chest rise Abdominal: General: There is no distension. Musculoskeletal: Cervical back: Normal range of motion. Comments: Left lower extremity shortened and externally rotated with intact sensory, pulses, motor function of toes. Neurological: Mental Status: She is alert. Mental status is at baseline. Comments: Awake Psychiatric: Behavior: Behavior normal. EASI ?? Total Score: 0 Ramu Coma Scale Score: 15 Mini Nutritional Screening Score : 6 TRST Assessment Total: 1 ED Course & MDM - Assessment: 85 y.o. female presents to ED with complaint of left hip pain after fall. It should be noted that the chronic conditions includes ASD, hypertension, diabetes, NARAYAN, hypothyroidism, which currently is at goal therapy. This complicates the clinical picture because it Comorbidities: increases the amount and complexity of data to be reviewed and increases the risk for morbidity Differential Diagnosis: Fracture, dislocation, muscular strain/sprain, syncope, mechanical fall, cardiogenic syncope, among others On assessment, patient noted to be hemodynamically stable and afebrile. Physical exam remarkable for no signs of respiratory distress or abdominal tenderness. Noted externally rotated and shortened left lower extremity with intact pulses and motor function distally. Features of history not consistent with syncope as patient denies loss of consciousness. Low concern for cardiogenic syncope at thistime. In order to fully explore the differential diagnosis the following treatments and tests were ordered: ED Medication Administration from 09/03/2025 0454 to 09/03/2025 1135 Date/Time Order Dose Route Action 09/03/2025 0814 EST morphine PF 4 mg 4 mg Intravenous Given 09/03/2025 0957 EST lactated Ringer's infusion 1,000 mL 1,000 mL Intravenous New Bag 09/03/2025 1049 EST HYDROmorphone (Dilaudid) injection 0.25 mg 0.25 mg Intravenous Given 09/03/2025 1053 EST tranexamic acid (Cyklokapron) IVPB 1,000 mg 1,000 mg Intravenous New Bag All Other Orders Ordered Status Ordering Provider 09/03/25 1135 Neurovascular checks every 12 hours til discharge Every 12 hours Acknowledged AUDELIA ROCA 09/03/25 0922 Protime-INR Morning draw Final result ARACELI FAN 09/03/25 0922 CBC W/O Differential Morning draw Final result ARACELI FAN 09/03/25 0922 Comprehensive metabolic panel Morning draw Final result ARACELI FAN 09/03/25 1135 Neurovascular checks Every 4 hours x 24 hours Every 4 hours Acknowledged AUDELIA ROCA 09/03/25 1135 Neurovascular checks Every 2 hours x 4 hours Every 2 hours Acknowledged AUDELIA ROCA W 09/03/25 1135 Neurovascular checks Every 1 hour x 4 hours Every 1 hour AUDELIA Estrada 09/03/25 1135 Vital Signs Every 6 hours Placed in And Linked Group AUDELIA Estrada 09/03/25 1135 Pulse Oximetry Every 6 hours Placed in And Linked Group AUDELIA Estrada 09/03/25 1135 Do Not Give Nicotine Replacement Until discontinued Acknowledged AUDELIA ROCA 09/03/25 1135 Mobility Orders Until discontinued Acknowledged AUDELIA ROCA 09/03/25 1135 Reason for no VTE Prophylaxis - hospital admission - mechanical Once Comments: Upcoming procedure Completed AUDELIA ROCA 09/03/25 1135 Notify Provider Until discontinued AUDELIA Estrada 09/03/25 1135 For POC BG 71 - 89 mg/dL Until discontinued Comments: If patient is able to take PO (does not have NPO order) give 15 -20 gm of carbohydrate plus protein snack. Options include: 3 shane crackers (15 gm); 2 pkg. saltine crackers (16 gm); 4 oz cup applesauce (17 gm); ?? oz peanut butter,1 container (5 gm); 1 cup regular pudding (21 gm); or 1 cup sugar free pudding (10 gm). Recheck POC BG 30 minutes after administration and follow hypoglycemia prevention protocol. Acknowledged AUDELIA ROCA 09/03/25 1135 For POC BG 51 - 70 mg/dL Until discontinued Comments: If patient is able to take PO (does not have NPO order) give 15gm of fast acting carbohydrates. Options include 4 oz of juice (apple juice preferred in renal patients), 4 oz non-diet soda or 8 oz milk. Recheck POC BG 15 minutes after administration and retreat if necessary until POC BG is> 100. Acknowledged AUDELIA ROCA 09/03/25 1135 For POC BG less than or equal to 50 mg/dL Until discontinued Comments: After patient receives 25gm Dextrose and patient alert and can take PO (does not have NPOorder) give 30gm fast acting carbohydrates. Options include 8 oz of juice (apple juice preferred inrenal patients), 8 oz non-diet soda or 16 oz milk. Recheck POC BG 15 minutes after administration and repeat if necessary until POC BG >100. Jen WICKWINATE AUDELIA Dannielle 09/03/25 1135 Admit to inpatient Once Completed SHAMIKABLAS AUDELIA Dannielle 09/03/25 1135 Notify physician (specify parameters) Until discontinued Acknowledged SHAMIKABLAS AUDELIA Dannielle 09/03/25 1135 Insert peripheral IV Once Placed in And Linked Group Acknowledged SHAMIKABLAS AUDELIA Dannielle 09/03/25 1135 Saline lock IV Once Placed in And Linked Group Acknowledged SHAMIKABLAS AUDELIA Dannielle 09/03/25 1135 Inpatient consult to Anesthesia Once Comments: Ortho team will call-coordinate for Anesthesia. If patient non-operative, please cancel the consult. Thanks Specialty: Anesthesiology Provider: (Not yet assigned) Sandeep SHAMIKABLAS AUDELIA Dannielle 09/03/25 1135 Inpatient consult to Bone Mineral Metabolism Once Specialty: Nephrology Provider: (Not yet assigned) Sandeep ROCA AUDELIA Dannielle 09/03/25 1135 Vitamin D 25 hydroxy Once Final result SHAMIKABLAS AUDELIA Spicer 09/03/25 1135 PTH Panel 1 Once Final result SHAMIKABLAS AUDELIA Dannielle 09/03/25 1135 Protein electrophoresis, serum Once In process CHANELLE AUDELIA Spicer 09/03/25 1135 Bone Specific Alkaline Phosphatase Once In process SHAMIKABLAS AUDELIA Spicer 09/03/25 1135 Comprehensive Metabolic Panel, Plasma Once Final result CHANELLE AUDELIA Spicer 09/03/25 1135 Phosphorus, Plasma Once Final result CHANELLE AUDELIA Dannielle 09/03/25 1135 Magnesium, Plasma Once Final result SHAMIKABLAS AUDELIA Dannielle 09/03/25 1135 Provide patient education materials Once Comments: Fall prevention & Osteoporosis Acknowledged CHANELLE AUDELIA Dannielle 09/03/25 1135 Nurse to complete Until discontinued Comments: -Reorient communication -Record location, date, and time on the whiteboard -Ensure working clock on the wall and in view -Ensure lights are on and window shades/drapes open from 0800 to 1999 -Ensure hearing aids present and available by 0800 (if applicable) -Ensure eyeglasses are present and available by 0800 (if applicable) -Ensure dentures are in by 0800 (if applicable) -Ensure lights and TV are off after 2099 -Offer earplugs if noise interfering with sleep (if available) -Offer fluids q2h between 0800 & 2100 -Assess daily by 1200 if cardiac telemetry can be discontinued -Facilitate family visit or phone call daily -Notify primary team of uncontrolled pain if applicable -Participate in maximum level of mobility as directed by PT/OT -Offer warm beverage (milk or decaffeinated tea) at 2100 Acknowledged SHAMIKABLAS AUDELIA Dannielle 09/03/25 1135 Provide patient education materials Once Comments: RN to provide delirium material from patient education tab to Family. Acknowledged SHAMIKABLASAUDELIA Dannielle 09/03/25 1135 Full code Continuous Acknowledged SHAMIKABLAS AUDELIA Dannielle 09/03/25 1135 PTH Intact Total PROCEDURE ONCE Final result AUDELIA ROCA 09/03/25 1135 Ionized calcium, serum PROCEDURE ONCE Final result AUDELIA ROCA 09/03/25 1135 Protein Electrophoresis, Serum PROCEDURE ONCE In process CHANELLE AUDELIA Dannielle 09/03/25 0831 Diet effective now Canceled AUDREY GUZMAN 09/03/25 1031 Once Canceled ARACELI FAN 09/03/25 1029 Consult to [facility] Medicine - [place] Once Specialty: Internal Medicine Provider: (Not yet assigned) Completed AUDREY GUZMAN 09/03/25 1029 ED to floor bed request Once Completed AUDREY GUZMAN 09/03/[address] Bony Pelvis Once Final result NARGIS PIERCE 09/03/25 1017 XR Hip Left 2 or 3 Views Once Final result NARGIS PIERCE 09/03/25 1023 Vital signs for transfusion Until discontinued Comments: Check vital signs immediately prior to transfusion, 15 minutes into transfusion, every hour and after completion of transfusion. Acknowledged ARACELI FAN 09/03/25 1023 Type and screen Once Final result ARACELI FAN 09/03/25 1023 Prepare Leukocyte Reduced RBC: 2 Units, Leukocyte reduced (CMV reduced risk) Blood - Once Preliminary result ARACELI FAN 09/03/25 1023 Diet effective now Canceled ARACELI FAN 09/03/25 1023 Inpatient consult to Anesthesia Once Comments: [id number] - Page the Anesthesia Acute Pain Service: [phone]; [phone] - Call the House PM Inspectors And Regulatory Officers: [phone]. Specialty: Anesthesiology Provider: (Not yet assigned) Acknowledged ARACELI FAN 09/03/25 1023 Nursing communication Contact TAVIA to move patient to 9.200 Coyote Bed vs PACU bed based on availability of bed and anesthesia personnel. Prioritize 9.200 Coyote Bed post-block Once Comments: Contact TAVIA to move patient to 9.200 Coyote Bed vs PACU bed based on availability of bed and anesthesia personnel. Prioritize 9.200 Coyote Bed post-block Acknowledged ARACELI FAN 09/03/25 0922 XR Chest 1 View One time imaging Final result ARACELI FAN 09/03/25 0922 ECG Adult Once Final result ARACELI FAN 09/03/25 0826 Consult to Orthopaedic Surgery Once Specialty: Orthopaedic Surgery Provider: (Not yet assigned) Completed AUDREY GUZMAN 09/03/25 0734 XR Knee Left 3 Views Once Final result AUDREY GUZMAN 09/03/25 0734 Hepatitis C Antibody - ED Once Final result AUDREY GUZMAN 09/03/25 0734 ED Protocol - HIV 1/2 Antibody/Antigen Screen Once Final result AUDREY GUZMAN 09/03/25 0734 ED HIV 1/2 Antibody/Antigen Screen w/Reflex to HIV 1/2 Differentiation PROCEDURE ONCE Final result AUDREY GUZMAN 09/03/25 0734 CMP STAT Final result AUDREY GUZMAN 09/03/25 0734 CBC w/diff STAT Final result AUDREY GUZMAN 09/03/25 0734 PT-INR STAT Final result AUDREY GUZMAN 09/03/25 0734 XR Hip Left 2 or 3 Views Including Pelvis Once Final result AUDREY GUZMAN 09/03/25 0734 XR Femur Left 2+ Views Once Final result AUDREY GUZMAN 09/03/25 1135 POCT Glucose As needed Comments: Recheck POC BG 15 minutes after any hypoglycemia treatment. Continue until POC BG is greater than 100 mg/dL. Acknowledged AUDELIA ROCA Labs independently reviewed as remarkable for anemia near baseline of 9.1, no leukocytosis, thrombocytopenia with a platelets of 79, significantly elevated creatinine at 3.17 with hyponatremia at 130and hyperkalemia at 5.6 (we will give fluids but noted that patient's creatinine has been up trending over the last several checks and could be intrinsic and/or related to medication therapies for IBS). EKG sinus bradycardia without evidence of STEMI or peaked T-waves. Reviewed outside hospital CT head and CT C-spine from earlier today and noted no evidence of intracranial hemorrhage or cervical spine fracture. Repeated x-ray of pelvis and lower extremities down to knees and noted evidence of left inter trochanteric fracture. Consulted orthopedic surgery for further evaluation and management.Consulted fragility fracture service team for evaluation for admission pending Orthopedic surgery management. Patient was stable at time of admission. ED Course as of 09/04/25 0953 Mon Sep 03, 2025 0959 Creatinine(!): 3.17 Per chart review had a Cr. Of 1.3 in Nov and was 2.5 on 08/28/25. Patient unknown of CKD. Will give fluids as patient does have chronic diarrhea, though bicarb is normal and BUN/Cr ratio is 10, more likely to be intrinsic disease. [BD] ED Course User Index [BD] Dominick Curtis MD Clinical Impressions as of 09/04/25 0953 Closed displaced intertrochanteric fracture of left femur, initial encounter ASHLEY (acute kidney injury) Fall, initial encounter Hyperkalemia Anemia, unspecified type Social Determinates of Health Risks (including Economic Stability, Education and level of understanding, Healthcare access and quality and concerning social factors): Lives far away Ultimately, this patient was Was admitted (Admission) The primary encounter diagnosis was Displaced intertrochanteric fracture of left femur,initial encounter for closed fracture. Diagnoses of Closed displaced intertrochanteric fracture of left femur, initial encounter, ASHLEY (acute kidney injury), Fall, initial encounter, Hyperkalemia, andAnemia, unspecified type were also pertinent to this visit.. Patient believed to require admission for the listed diagnoses. The Internal Medicine service was consulted for admission and was agreeable to admit to Acute Floor (Med/Surg). ED Prescriptions None Disposition Admit Admitting/Attending Physician: EMANI CUNNINGHAM [[id number]] Provider Care Team: FRAGILITY FRACTURE [74] Are they the primary team?: Yes [1] Audrey Guzman MD Emergency Medicine, PGY-2 - [1] Past Medical History: Diagnosis Date Acute UTI (urinary tract infection) 04/26/25 ASHLEY (acute kidney injury) 04/26/25 Conversions - Other Allergic Bronchitis With Status Asthmaticus Conversions - Other Anemia Conversions - Other Angina Pectoris Conversions - Other Aortic Stenosis Conversions - Other Roberst's Esophagus Conversions - Other Dysphagia Conversions - Other Subarachnoid Hemorrhage Encephalopathy 04/26/25 Old myocardial infarction History of myocardial infarction Personal history of other diseases of the nervous system and sense organs History of sleep apnea Personal history of other specified conditions History of chest pain Transient ischemic attack 12/08/2021 [2] Past Surgical History: Procedure Laterality Date CARDIAC CATHETERIZATION N/A HYSTERECTOMY N/A TUBAL LIGATION N/A [3] Family History Problem Relation Name Age of Onset Dementia Mother Heart disease Father Hypertension Father Cervical cancer Sister Diabetes Sister Anesthesia problems Neg Hx Malig Hyperthermia Neg Hx [4] Tobacco Use Smoking status: Former Current packs/day: 0.00 Average packs/day: 0.3 packs/day for 30.0 years (7.5 ttl pk-yrs) Types: Cigarettes Start date: 1964 Quit date: 1994 Years since quittin.9 Passive exposure: Past Smokeless tobacco: Never Vaping Use Vaping status: Never Used Substance Use Topics Alcohol use: Yes Comment: Social, every blue hearn Drug use: Never [5] Allergies Allergen Reactions Amoxicillin-Pot Clavulanate Unknown - Patient states they do not know rxn details Audrey Guzman MD Resident 09/04/25 0953 Cosigned by Dominick Curtis MD at 09/04/2025 5:14 PM EST Associated attestation - Dominick Curtis MD - 09/04/2025 5:14 PM EST I saw and evaluated the patient with the resident/fellow. I discussed the case with the resident/fellow and agree with the findings and plan as documented. * ED Triage Notes - Nay Nichols RN - 09/03/2025 6:24 AM EST Pt arrives via EMS from OSH after a GLF at home, pt does not recall how she fell. -LOC, -BT, denieshitting head. OSH concerned for L hip fx, sent to for further evaluation. Pt GCS 15 and VSS uponarrival. documented in this encounter Plan of Treatment Upcoming Encounters Date Type Department Care Team (Late st Contact Info) Description 09/25/2025 12:30 PM EST Office Visit [facility] Orthopaedic Surgery & Sports Medicine [address], [address] [place] [address] Sarah Hunter PA [address] [place] [address] 10/24/2025 8:00 AM EST Appointment [facility] Radiology [address] [place] [address] 10/24/2025 8:40 AM EST Office Visit [facility] Orthopaedic Surgery & Sports Medicine [address] [place] [address] Jose Antonio Hernández MD [address] [facility] [address] [place] [address] 11/21/2025 3:00 PM EST Office Visit [facility] [place] Nephrology, Bone & Mineral Metabolism [address], [address] [place] [address] Aime Mcelroy MD [address] [place] [address] Pending Results Name Type Priority Associated Diagnoses Date /Time Prepare Leukocyte Reduced RBC: 2 Units, Leukocyte reduced (CMV reduced risk) Blood Bank Routine 09/03/2025 10:24 AM EST Scheduled Orders Name Type Priority Associated Diagnoses Orde r Schedule Alkaline Phosphatase Lab Routine Age-related osteoporosis with current pathological fracture, initial encounter Expected: 09/05/2025 (Approximate), Expires: 03/06/2027 Bone Specific Alkaline Phosphatase Lab Routine Age-related osteoporosis with current pathological fracture, initial encounter Expected: 09/05/2025 (Approximate), Expires: 03/06/2027 C-Telopeptide Lab Routine Age-related osteoporosis with current pathological fracture, initial encounter Expected: 09/05/2025 (Approximate), Expires: 03/06/2027 Magnesium, Plasma Lab Routine Age-related osteoporosis with current pathological fracture, initial encounter Expected: 09/05/2025 (Approximate), Expires: 03/06/2027 N telopeptide, cross-linked, serum Lab Routine Age-related osteoporosis with current pathological fracture, initial encounter Expected: 09/05/2025 (Approximate), Expires: 03/06/2027 Vitamin D 25 Hydroxy Lab Routine Age-related osteoporosis with current pathological fracture, initial encounter Expected: 09/05/2025 (Approximate), Expires: 03/06/2027 Vitamin D 1,25 Dihydroxy Lab Routine Age-related osteoporosis with current pathological fracture, initial encounter Expected: 09/05/2025 (Approximate), Expires: 03/06/2027 Renal Function Panel, Plasma Lab Routine Age-related osteoporosis with current pathological fracture, initial encounter Expected: 09/05/2025 (Approximate), Expires: 03/06/2027 PTH Panel 1 Lab Routine Age-related osteoporosis with current pathological fracture, initial encounter Expected: 09/05/2025 (Approximate), Expires: 03/06/2027 Phosphorus, Random, Urine Lab Routine Age-related osteoporosis with current pathological fracture, initial encounter Expected: 09/05/2025 (Approximate), Expires: 03/06/2027 Osteocalcin by ECIA Lab Routine Age-related osteoporosis with current pathological fracture, initial encounter Expected: 09/05/2025 (Approximate), Expires: 03/06/2027 Cystatin C Lab Routine Age-related osteoporosis with current pathological fracture, initial encounter Expected: 09/05/2025 (Approximate), Expires: 03/06/2027 Dexa Bone Density Axial Skeleton W VFA Imaging Routine Age-related osteoporosis with current pathological fracture, initial encounter 1 Occurrences starting 09/05/2025 until 03/06/2027 Scheduled Referrals Name Type Priority Associated Diagnoses Orde r Schedule Discharge Ambulatory referral to [facility] Outpatient Referral Routine Age-related osteoporosis with current pathological fracture, initial encounter 1 Occurrences starting 09/05/2025 until 03/09/2027 documented as of this encounter Procedures Procedure Name Priority Date/Time Associated Diagnosis Comments CBC W/O DIFFERENTIAL Routine 09/07/2025 4:21 AM EST PHOSPHORUS, PLASMA Routine 09/07/2025 4:21 AM EST MAGNESIUM, PLASMA Routine 09/07/2025 4:21 AM EST COMPREHENSIVE METABOLIC PANEL, PLASMA Routine 09/07/2025 4:21 AM EST CBC WITH AUTO DIFFERENTIAL Routine 09/06/2025 3:17 PM EST SODIUM, PLASMA Routine 09/06/2025 3:17 PM EST POTASSIUM, PLASMA Add-On 09/06/2025 3:17 PM EST TRANSFUSE RED BLOOD CELLS Routine 09/06/2025 10:22 AM EST OXYGEN THERAPY Routine 09/06/2025 8:00 AM EST PREPARE RBC Routine 09/06/2025 7:07 AM EST CBC W/O DIFFERENTIAL Routine 09/06/2025 4:06 AM EST RENAL FUNCTION PANEL, PLASMA Routine 09/06/2025 4:06 AM EST OXYGEN THERAPY Routine 09/05/2025 8:00 PM EST POCT GLUCOSE METER UNSOLICITED RESULTS Routine 09/05/2025 1:43 PM EST POCT GLUCOSE METER UNSOLICITED RESULTS Routine 09/05/2025 12:44 PM EST POCT GLUCOSE METER UNSOLICITED RESULTS Routine 09/05/2025 11:37 AM EST POCT GLUCOSE METER UNSOLICITED RESULTS Routine 09/05/2025 10:43 AM EST POCT GLUCOSE METER UNSOLICITED RESULTS Routine 09/05/2025 9:42 AM EST POTASSIUM, PLASMA STAT 09/05/2025 9:38 AM EST OXYGEN THERAPY Routine 09/05/2025 8:00 AM EST CBC W/O DIFFERENTIAL Routine 09/05/2025 12:56 AM EST BASIC METABOLIC PANEL, PLASMA Routine 09/05/2025 12:56 AM EST OXYGEN THERAPY Routine 09/04/2025 8:00 PM EST XR FEMUR LEFT 2+ VIEWS STAT 09/04/2025 1:11 PM EST FL LESS THAN 1 HOUR (NON-REPORTABLE) Routine 09/04/2025 12:02 PM EST TRANSFUSE RED BLOOD CELLS Routine 09/04/2025 11:03 AM EST POCT ARTERIAL BLOOD GAS GEM UNSOLICITED RESULTS Routine 09/04/2025 10:56 AM EST INSERTION, INTRAMEDULLARY OSWALD, FEMUR 09/04/2025 10:12 AM EST Displaced intertrochanteric fracture of left femur, initial encounter for closed fracture Special Needs Supine, agustin, C arm, ortho soft tissue, trauma toolbox, sterile traction, SNN Intertan ECG ADULT Routine 09/04/2025 9:58 AM EST EXTRA TUBE LAVENDER TOP Routine 09/04/2025 9:00 AM EST EXTRA TUBES Routine 09/04/2025 9:00 AM EST RENAL FUNCTION PANEL, PLASMA STAT 09/04/2025 9:00 AM EST ECHO, ADULT TRANSTHORACIC COMPLETE STAT 09/04/2025 8:40 AM EST POCT GLUCOSE METER UNSOLICITED RESULTS Routine 09/04/2025 8:01 AM EST OXYGEN THERAPY Routine 09/04/2025 8:00 AM EST POCT GLUCOSE METER UNSOLICITED RESULTS Routine 09/04/2025 6:31 AM EST POCT GLUCOSE METER UNSOLICITED RESULTS Routine 09/04/2025 5:59 AM EST METHICILLIN RESISTANT STAPHYLOCOCCUS AUREUS (MRSA) BY PCR Routine 09/04/2025 5:00 AM EST POCT GLUCOSE METER UNSOLICITED RESULTS Routine 09/04/2025 4:59 AM EST POCT GLUCOSE METER UNSOLICITED RESULTS Routine 09/04/2025 4:03 AM EST PROTHROMBIN TIME(PT) / INR Routine 09/04/2025 12:09 AM EST CBC W/O DIFFERENTIAL Routine 09/04/2025 12:09 AM EST COMPREHENSIVE METABOLIC PANEL, PLASMA Routine 09/04/2025 12:09 AM EST OXYGEN THERAPY Routine 09/03/2025 8:00 PM EST CBC W/O DIFFERENTIAL STAT 09/03/2025 5:53 PM EST POCT GLUCOSE METER UNSOLICITED RESULTS Routine 09/03/2025 5:[address] BONY PELVIS STAT 09/03/2025 4:49 PM EST POCT GLUCOSE METER UNSOLICITED RESULTS Routine 09/03/2025 4:28 PM EST OXYGEN THERAPY Routine 09/03/2025 3:35 PM EST OXYGEN THERAPY Routine 09/03/2025 3:35 PM EST POCT GLUCOSE METER UNSOLICITED RESULTS Routine 09/03/2025 3:22 PM EST BONE SPECIFIC ALKALINE PHOSPHATASE Routine 09/03/2025 3:13 PM EST TOTAL PROTEIN, SERUM Routine 09/03/2025 3:13 PM EST PROTEIN ELECTROPHORESIS, SERUM Routine 09/03/2025 3:13 PM EST PERIPHERAL BLOOD SMEAR, PSMEAR Routine 09/03/2025 3:13 PM EST PROTEIN ELECTROPHORESIS, PATHOLOGIST INTERPRETATION Routine 09/03/2025 3:13 PM EST IONIZED CALCIUM, SERUM Routine 09/03/2025 3:13 PM EST IRON & TOTAL IRON BINDING CAPACITY, PLASMA (INCLUDES TRANSFERRIN) Routine 09/03/2025 3:13 PM EST PTH PANEL 1 Routine 09/03/2025 3:13 PM EST PERIPHERAL BLOOD SMEAR, PATHOLOGIST INTERPRETATION Routine 09/03/2025 3:13 PM EST VITAMIN D 25 HYDROXY Routine 09/03/2025 3:13 PM EST PROTEIN ELECTROPHORESIS, SERUM Routine 09/03/2025 3:13 PM EST PTH INTACT TOTAL Routine 09/03/2025 3:13 PM EST FERRITIN, SERUM Routine 09/03/2025 3:13 PM EST COMPREHENSIVE METABOLIC PANEL, PLASMA STAT 09/03/2025 3:13 PM EST ECG ADULT STAT 09/03/2025 1:44 PM EST XR HIP LEFT 2 OR 3 VIEWS STAT 09/03/2025 10:52 AM EST TYPE AND SCREEN Routine 09/03/2025 10:33 AM EST PREPARE RBC Routine 09/03/2025 10:24 AM EST XR CHEST 1 VIEW Routine 09/03/2025 10:20 AM EST ECG ADULT Routine 09/03/2025 9:38 AM EST ED HIV 1/2 ANTIBODY/ANTIGEN SCREEN WITH REFLEX TO HIV I/II DIFFERENTIATION STAT 09/03/2025 8:26 AM EST ED PROTOCOL HIV 1/2 ANTIBODY/ANTIGEN SCREEN W/REFLEX TO HIV 1/2 ANTIBODY DIFFERENTIATION STAT 09/03/2025 8:26 AM EST CYSTATIN C Add-On 09/03/2025 8:26 AM EST CREATINE KINASE, TOTAL, PLASMA Add-On 09/03/2025 8:26 AM EST HEPATITIS C ANTIBODY - ED W/REFLEX TO HCV QUANT PCR STAT 09/03/2025 8:26 AM EST N-TERMINAL PROBNP, PLASMA Add-On 09/03/2025 8:26 AM EST PROTHROMBIN TIME(PT) / INR STAT 09/03/2025 8:26 AM EST RETICULOCYTES, BLOOD Add-On 09/03/2025 8:26 AM EST CBC WITH AUTO DIFFERENTIAL STAT 09/03/2025 8:26 AM EST PHOSPHORUS, PLASMA Add-On 09/03/2025 8:26 AM EST MAGNESIUM, PLASMA Add-On 09/03/2025 8:26 AM EST COMPREHENSIVE METABOLIC PANEL, PLASMA STAT 09/03/2025 8:26 AM EST XR KNEE LEFT 3 VIEWS STAT 09/03/2025 8:10 AM EST XR FEMUR LEFT 2+ VIEWS STAT 09/03/2025 8:10 AM EST XR HIP LEFT 2 OR 3 VIEWS STAT 09/03/2025 8:10 AM EST documented in this encounter Results * (ABNORMAL) Phosphorus, Plasma (09/07/2025 4:21 AM EST) Phosphorus, Plasma 2.4(L) 2.5 - 4.5 mg/dL 09/07/2025 5:02 AM EST [facility] Blood Venous blood specimen / Unknown Venipuncture / Unknown 09/07/2025 4:21 AM EST 09/07/2025 4:32 AM EST Renu Barros MD LAB BLOOD ORDERABLES Final Resul t Performing Organization Address City/[facility]/ZIP Co de Phone Number [facility] [address] [place] [address] * Magnesium, Plasma (09/07/2025 4:21 AM EST) Magnesium, Plasma 2.1 1.9 - 2.4 mg/dL 09/07/2025 5:02 AM EST [facility] Blood Venous blood specimen / Unknown Venipuncture / Unknown 09/07/2025 4:21 AM EST 09/07/2025 4:32 AM EST Renu Barros MD LAB BLOOD ORDERABLES Final Resul t Performing Organization Address [facility] Co de Phone Number [facility] [address] [place] [address] * (ABNORMAL) Comprehensive Metabolic Panel, Plasma (09/07/2025 4:21 AM EST) Glucose, Plasma 94 74 - 99 mg/dL 09/07/2025 5:02 AM EST [facility] BUN, Plasma 54(H) 8 - 23 mg/dL 09/07/2025 5:02 AM EST [facility] Creatinine, Plasma 2.25(H) 0.60 - 1.10 mg/dL 09/07/2025 5:02 AM EST [facility] BUN/Creatinine Ratio 24 09/07/2025 5:02 AM EST [facility] Sodium, Plasma 127(L) 136 - 145 mmol/L 09/07/2025 5:02 AM EST [facility] Potassium, Plasma 4.2 3.6 - 4.9 mmol/L 09/07/2025 5:02 AM EST [facility] Chloride, Plasma 96(L) 97 - 107 mmol/L 09/07/2025 5:02 AM EST [facility] CO2, Plasma 23 22 - 29 mmol/L 09/07/2025 5:02 AM EST [facility] Anion Gap 8 6 - 16 mmol/L 09/07/2025 5:02 AM EST [facility] Total Calcium, Plasma 7.2(L) 8.9 - 10.2 mg/dL 09/07/2025 5:02 AM EST [facility] Total Protein 3.9(L) 6.3 - 7.9 g/dL 09/07/2025 5:02 AM EST [facility] Albumin, Plasma 2.3(L) 3.5 - 5.2 g/dL 09/07/2025 5:02 AM EST [facility] AST, Plasma 32 10 - 35 U/L 09/07/2025 5:02 AM EST [facility] ALT, Plasma <5(L) 10 - 35 U/L 09/07/2025 5:02 AM EST [facility] Alkaline Phosphatase, Plasma 37(L) 46 - 142 U/L 09/07/2025 5:02 AM EST [facility] Total Bilirubin, Plasma 0.6 0.2 - 1.1 mg/dL 09/07/2025 5:02 AM EST [facility] eGFRcr 21.2 mL/min/1.7 3m*2 09/07/2025 5:02 AM EST [facility] Comment:Reported eGFRcr in m L/min/1.73m2 is based the CKD-EPI 2020 equation that does not use a race coefficient. Blood Venous blood specimen / Unknown Venipuncture / Unknown 09/07/2025 4:21 AM EST 09/07/2025 4:32 AM EST us Renu Barros MD LAB BLOOD ORDERABLES Final Resul t [facility] [address] [place] [address] * (ABNORMAL) CBC W/O Differential (09/07/2025 4:21 AM EST) WBC Count 4.34 3.70 - 10.30 10*3/uL LAB HEMATOLOGY METHOD 09/07/2025 4:45 AM EST [facility] RBC Count 2.56(L) 3.90 - 5.20 10*6/uL LAB HEMATOLOGY METHOD 09/07/2025 4:45 AM EST [facility] HGB 7.6(L) 11.2 - 15.7 g/dL LAB HEMATOLOGY METHOD 09/07/2025 4:45 AM EST [facility] HCT 22.2(L) 34.0 - 45.0 % LAB HEMATOLOGY METHOD 09/07/2025 4:45 AM EST [facility] Platelet Count 53(L) 155 - 369 10*3/uL LAB HEMATOLOGY METHOD 09/07/2025 4:45 AM EST [facility] MCV 87 79 - 98 fL LAB HEMATOLOGY METHOD 09/07/2025 4:45 AM EST [facility] MCH 29.7 26.0 - 32.0 pg LAB HEMATOLOGY METHOD 09/07/2025 4:45 AM EST [facility] MCHC 34.2 30.7 - 35.5 g/dL LAB HEMATOLOGY METHOD 09/07/2025 4:45 AM EST [facility] RDW 14.6(H) 11.5 - 14.5 % LAB HEMATOLOGY METHOD 09/07/2025 4:45 AM EST [facility] MPV LAB HEMATOLOGY METHOD 09/07/2025 4:45 AM EST [facility] Comment:Not Measured nRBC 0.0 <=0.0 per 100 WBCs LAB HEMATOLOGY METHOD 09/07/2025 4:45 AM EST [facility] Blood Venous blood specimen / Unknown Venipuncture / Unknown 09/07/2025 4:21 AM EST 09/07/2025 4:33 AM EST Renu Barros MD LAB BLOOD ORDERABLES Final Resul t [facility] [address] [place] [address] * Potassium (09/06/2025 3:17 PM EST) Potassium, Plasma 4.5 3.6 - 4.9 mmol/L 09/06/2025 11:36 PM EST [facility] Blood Venous blood specimen / Unknown Venipuncture / Unknown 09/06/2025 3:17 PM EST 09/06/2025 3:49 PM EST Renu Barros MD LAB BLOOD ORDERABLES Final Resul t [facility] [address] [place] [address] * (ABNORMAL) CBC and differential (09/06/2025 3:17 PM EST) WBC Count 6.05 3.70 - 10.30 10*3/uL LAB HEMATOLOGY METHOD 09/06/2025 4:09 PM EST [facility] RBC Count 3.27(L) 3.90 - 5.20 10*6/uL LAB HEMATOLOGY METHOD 09/06/2025 4:09 PM EST [facility] HGB 9.8(L) 11.2 - 15.7 g/dL LAB HEMATOLOGY METHOD 09/06/2025 4:09 PM EST [facility] HCT 28.9(L) 34.0 - 45.0 % LAB HEMATOLOGY METHOD 09/06/2025 4:09 PM EST [facility] Platelet Count 63(L) 155 - 369 10*3/uL LAB HEMATOLOGY METHOD 09/06/2025 4:09 PM EST [facility] MCV 88 79 - 98 fL LAB HEMATOLOGY METHOD 09/06/2025 4:09 PM EST [facility] MCH 30.0 26.0 - 32.0 pg LAB HEMATOLOGY METHOD 09/06/2025 4:09 PM [facility] MCHC 33.9 30.7 - 35.5 g/dL LAB HEMATOLOGY METHOD 09/06/2025 4:09 PM EST [facility] RDW 14.1 11.5 - 14.5 % LAB HEMATOLOGY METHOD 09/06/2025 4:09 PM EST [facility] MPV LAB HEMATOLOGY METHOD 09/06/2025 4:09 PM [facility] Comment:Not Measured nRBC 0.0 <=0.0 per 100 WBCs LAB HEMATOLOGY METHOD 09/06/2025 4:09 PM [facility] Differential Type Automated LAB HEMATOLOGY METHOD 09/06/2025 4:09 PM [facility] Neutrophils % 82 % LAB HEMATOLOGY METHOD 09/06/2025 4:09 PM EST [facility] Lymphocytes % 10 % LAB HEMATOLOGY METHOD 09/06/2025 4:09 PM [facility] Monocytes % 7 % LAB HEMATOLOGY METHOD 09/06/2025 4:09 PM EST [facility] Eosinophils % 1 % LAB HEMATOLOGY METHOD 09/06/2025 4:09 PM EST [facility] Basophils % 0 % LAB HEMATOLOGY METHOD 09/06/2025 4:09 PM EST [facility] Immature Granulocytes % 0 % LAB HEMATOLOGY METHOD 09/06/2025 4:09 PM EST [facility] Neutrophils Absolute 4.96 1.60 - 6.10 10*3/uL LAB HEMATOLOGY METHOD 09/06/2025 4:09 PM EST [facility] Lymphocytes Absolute 0.60(L) 1.20 - 3.90 10*3/uL LAB HEMATOLOGY METHOD 09/06/2025 4:09 PM EST [facility] Monocytes Absolute 0.40 0.30 - 0.90 10*3/uL LAB HEMATOLOGY METHOD 09/06/2025 4:09 PM EST [facility] Eosinophils Absolute 0.06 0.00 - 0.50 10*3/uL LAB HEMATOLOGY METHOD 09/06/2025 4:09 PM EST [facility] Basophils Absolute 0.01 0.00 - 0.10 10*3/uL LAB HEMATOLOGY METHOD 09/06/2025 4:09 PM EST [facility] Immature Granulocytes Absolute 0.02 0.00 - 0.06 10*3/uL LAB HEMATOLOGY METHOD 09/06/2025 4:09 PM EST [facility] Blood Venous blood specimen / Unknown Venipuncture / Unknown 09/06/2025 3:17 PM EST 09/06/2025 3:46 PM EST Narrative [facility] - 09/06/2025 4:09 PM EST Therapeutic decision making should be based on absolute values, rather than percentages. us Renu Barros MD LAB BLOOD ORDERABLES Final Resul t [facility] [address] [place] [address] * (ABNORMAL) Sodium (09/06/2025 3:17 PM EST) Sodium, Plasma 125(L) 136 - 145 mmol/L 09/06/2025 4:15 PM EST [facility] Blood Venous blood specimen / Unknown Venipuncture / Unknown 09/06/2025 3:17 PM EST 09/06/2025 3:49 PM EST us Renu Barros MD LAB BLOOD ORDERABLES Final Resul t Performing Organization Address City/[facility] Co de Phone Number [facility] [address] [place] [address] * Transfuse RBC (09/06/2025 1:35 PM EST) us Renu Barros MD BLOOD TRANSFUSION ORDERABLES Fin al Result * Transfuse RBC: 1 Units (09/06/2025 1:35 PM EST) us Renu Barros MD BLOOD TRANSFUSION ORDERABLES Fin al Result * Prepare Leukocyte Reduced RBC: 1 Units (09/06/2025 7:07 AM EST) Product Code [id number] CH BLOO D BANK Dispense Status Transfused BLOOD BANK Blood Expiration Date [id number] BLOOD BANK Unit Number [id number] CH B LOOD BANK Product Blood Type 6200 BLOOD BANK Blood Type A+ BLOOD BANK Crossmatch Compatible BLOOD BANK Other us Renu Barros MD BLOOD BANK PRODUCT ORDERABLES Fi nal Result Performing Organization Address [facility] de Phone Number BLOOD BANK [address] [place] [address], [place] * (ABNORMAL) CBC W/O Differential (09/06/2025 4:06 AM EST) WBC Count 5.69 3.70 - 10.30 10*3/uL LAB HEMATOLOGY METHOD 09/06/2025 4:58 AM EST [facility] RBC Count 2.19(L) 3.90 - 5.20 10*6/uL LAB HEMATOLOGY METHOD 09/06/2025 4:58 AM EST [facility] HGB 6.5(L) 11.2 - 15.7 g/dL LAB HEMATOLOGY METHOD 09/06/2025 4:58 AM EST [facility] HCT 19.5(L) 34.0 - 45.0 % LAB HEMATOLOGY METHOD 09/06/2025 4:58 AM EST [facility] Platelet Count 58(L) 155 - 369 10*3/uL LAB HEMATOLOGY METHOD 09/06/2025 4:58 AM EST [facility] MCV 89 79 - 98 fL LAB HEMATOLOGY METHOD 09/06/2025 4:58 AM EST [facility] MCH 29.7 26.0 - 32.0 pg LAB HEMATOLOGY METHOD 09/06/2025 4:58 AM EST [facility] MCHC 33.3 30.7 - 35.5 g/dL LAB HEMATOLOGY METHOD 09/06/2025 4:58 AM EST [facility] RDW 14.5 11.5 - 14.5 % LAB HEMATOLOGY METHOD 09/06/2025 4:58 AM EST [facility] MPV LAB HEMATOLOGY METHOD 09/06/2025 4:58 AM EST [facility] Comment:Not Measured nRBC 0.0 <=0.0 per 100 WBCs LAB HEMATOLOGY METHOD 09/06/2025 4:58 AM EST [facility] Blood Venous blood specimen / Unknown Venipuncture / Unknown 09/06/2025 4:06 AM EST 09/06/2025 4:45 AM EST us Renu Barros MD LAB BLOOD ORDERABLES Final Resul t [facility] [address] [place] [address] * (ABNORMAL) Renal function panel (09/06/2025 4:06 AM EST) Glucose, Plasma 90 74 - 99 mg/dL 09/06/2025 6:07 AM EST [facility] BUN, Plasma 47(H) 8 - 23 mg/dL 09/06/2025 6:07 AM EST [facility] Creatinine, Plasma 2.84(H) 0.60 - 1.10 mg/dL 09/06/2025 6:07 AM EST [facility] BUN/Creatinine Ratio 17 09/06/2025 6:07 AM EST [facility] Sodium, Plasma 123(L) 136 - 145 mmol/L 09/06/2025 6:07 AM EST [facility] Potassium, Plasma 4.9 3.6 - 4.9 mmol/L 09/06/2025 6:07 AM EST [facility] Chloride, Plasma 95(L) 97 - 107 mmol/L 09/06/2025 6:07 AM EST [facility] CO2, Plasma 20(L) 22 - 29 mmol/L 09/06/2025 6:07 AM EST [facility] Anion Gap 8 6 - 16 mmol/L 09/06/2025 6:07 AM EST [facility] Total Calcium, Plasma 7.5(L) 8.9 - 10.2 mg/dL 09/06/2025 6:07 AM [facility] Phosphorus, Plasma 2.6 2.5 - 4.5 mg/dL 09/06/2025 6:07 AM [facility] Albumin, Plasma 2.8(L) 3.5 - 5.2 g/dL 09/06/2025 6:07 AM [facility] eGFRcr 16.0 mL/min/1.7 3m*2 09/06/2025 6:07 AM [facility] Comment:Reported eGFRcr in m L/min/1.73m2 is based the CKD-EPI 2020 equation that does not use a race coefficient. Blood Venous blood specimen / Unknown Venipuncture / Unknown 09/06/2025 4:06 AM EST 09/06/2025 4:40 AM EST us Renu Barros MD LAB BLOOD ORDERABLES Final Resul t [facility] [address] [place] [address] * (ABNORMAL) POCT glucose meter (09/05/2025 1:43 PM EST) POCT Glucose 138(H) 74 - 99 mg/dL 09/05/2025 8:01 PM [facility] Comment:Accuracy of a glucos e result obtained from a capillary whole blood specimen relies upon adequate, non-compromised capillary blood flow. If the capillary glucose result is not consistent with the patient's clinical signs and symptoms, glucose testing should be repeated with either an arterial or venous sample on the glucometer or sent to the main labortory for testing. Comment 09/05/2025 8:01 PM EST [facility] Aerophysics Engineer ID Lisette Decker 09/05/20 8:01 PM EST [facility] Device ID [id number] 09/05/2025 8:01 PM EST [facility] Specimen Type POC Capillary 09/05/2025 8:01 PM EST [facility] Blood Capillary blood specimen / Unknown 09/05/2025 1:43 PM EST 09/05/2025 8:01 PM EST Renu Barros MD LAB POINT OF CARE TE ST DOCKED DEVICE UNSOLICITED RESULTS Final Result Performing Organization Address City/[facility]/ZIP Co de Phone Number [facility] [address] [place] [address] * (ABNORMAL) POCT glucose meter (09/05/2025 12:44 PM EST) POCT Glucose 120(H) 74 - 99 mg/dL 09/05/2025 12:46 PM EST [facility] Comment:Accuracy of a glucos e result obtained from a capillary whole blood specimen relies upon adequate, non-compromised capillary blood flow. If the capillary glucose result is not consistent with the patient's clinical signs and symptoms, glucose testing should be repeated with either an arterial or venous sample on the glucometer or sent to the main labortory for testing. Comment 09/05/2025 12:46 PM EST [facility] Aerophysics Engineer ID Halley Jaimes 025 12:46 PM EST [facility] Device ID [id number] 09/05/2025 12:46 PM EST [facility] Specimen Type POC Capillary 09/05/2025 12:46 PM EST [facility] Blood Capillary blood specimen / Unknown 09/05/2025 12:44 PM EST 09/05/2025 12:46 PM EST Renu Barros MD LAB POINT OF CARE TE ST DOCKED DEVICE UNSOLICITED RESULTS Final Result Performing Organization Address City/[facility]/ZIP Co de Phone Number [facility] [address] [place] [address] * (ABNORMAL) POCT glucose meter (09/05/2025 11:37 AM EST) POCT Glucose 173(H) 74 - 99 mg/dL 09/05/2025 11:39 AM EST [facility] Comment:Accuracy of a glucos e result obtained from a capillary whole blood specimen relies upon adequate, non-compromised capillary blood flow. If the capillary glucose result is not consistent with the patient's clinical signs and symptoms, glucose testing should be repeated with either an arterial or venous sample on the glucometer or sent to the main labortory for testing. Comment 09/05/2025 11:39 AM EST [facility] Aerophysics Engineer ID Lisette Decker 09/05/20 11:39 AM EST [facility] Device ID [id number] 09/05/2025 11:39 AM EST [facility] Specimen Type POC Capillary 09/05/2025 11:39 AM EST [facility] Blood Capillary blood specimen / Unknown 09/05/2025 11:37 AM EST 09/05/2025 11:39 AM EST Renu Barros MD LAB POINT OF CARE TE ST DOCKED DEVICE UNSOLICITED RESULTS Final Result Performing Organization Address City/State/[facility] de Phone Number [facility] [address] [place] [address] * (ABNORMAL) POCT glucose meter (09/05/2025 10:43 AM EST) Pathologist [facility] POCT Glucose 132(H) 74 - 99 mg/dL 09/05/2025 10:44 AM EST [facility] Comment:Accuracy of a glucos e result obtained from a capillary whole blood specimen relies upon adequate, non-compromised capillary blood flow. If the capillary glucose result is not consistent with the patient's clinical signs and symptoms, glucose testing should be repeated with either an arterial or venous sample on the glucometer or sent to the main labortory for testing. Comment 09/05/2025 10:44 AM EST [facility] Aerophysics Engineer ID Lisette Decker 09/05/20 10:44 AM EST [facility] Device ID [id number] 09/05/2025 10:44 AM EST [facility] Specimen Type POC Capillary 09/05/2025 10:44 AM EST [facility] Blood Capillary blood specimen / Unknown 09/05/2025 10:43 AM EST 09/05/2025 10:44 AM EST Renu Barros MD LAB POINT OF CARE TE ST DOCKED DEVICE UNSOLICITED RESULTS Final Result Performing Organization Address [facility] de Phone Number [facility] [address] [place] [address] * POCT glucose meter (09/05/2025 9:42 AM EST) POCT Glucose 76 74 - 99 mg/dL 09/05/2025 9:43 AM EST [facility] Comment:Accuracy of a glucos e result obtained from a capillary whole blood specimen relies upon adequate, non-compromised capillary blood flow. If the capillary glucose result is not consistent with the patient's clinical signs and symptoms, glucose testing should be repeated with either an arterial or venous sample on the glucometer or sent to the main labortory for testing. Comment 09/05/2025 9:43 AM EST [facility] Aerophysics Engineer ID Halley Jaimes 025 9:43 AM EST [facility] Device ID [id number] 09/05/2025 9:43 AM EST [facility] Specimen Type POC Capillary 09/05/2025 9:43 AM EST [facility] Blood Capillary blood specimen / Unknown 09/05/2025 9:42 AM EST 09/05/2025 9:43 AM EST Renu Barros MD LAB POINT OF CARE TE ST DOCKED DEVICE UNSOLICITED RESULTS Final Result Performing Organization Address City/[facility] Co de Phone Number [facility] [address] [place] [address] * Potassium (09/05/2025 9:38 AM EST) Potassium, Plasma 4.8 3.6 - 4.9 mmol/L 09/05/2025 10:[address] [facility] Blood Venous blood specimen / Unknown Venipuncture / Unknown 09/05/2025 9:38 AM EST 09/05/2025 9:46 AM EST us Renu Barros MD LAB BLOOD ORDERABLES Final Resul t [facility] [address] [place] [address] * (ABNORMAL) Basic metabolic panel (09/05/2025 12:56 AM EST) Glucose, Plasma 125(H) 74 - 99 mg/dL 09/05/2025 1:33 AM EST [facility] BUN, Plasma 38(H) 8 - 23 mg/dL 09/05/2025 1:33 AM EST [facility] Creatinine, Plasma 3.15(H) 0.60 - 1.10 mg/dL 09/05/2025 1:33 AM EST [facility] BUN/Creatinine Ratio 12 09/05/2025 1:33 AM EST [facility] Sodium, Plasma 127(L) 136 - 145 mmol/L 09/05/2025 1:33 AM EST [facility] Potassium, Plasma 5.8(H) 3.6 - 4.9 mmol/L 09/05/2025 1:33 AM EST [facility] Chloride, Plasma 97 97 - 107 mmol/L 09/05/2025 1:33 AM EST [facility] CO2, Plasma 22 22 - 29 mmol/L 09/05/2025 1:33 AM EST [facility] Anion Gap 8 6 - 16 mmol/L 09/05/2025 1:33 AM EST [facility] Total Calcium, Plasma 7.6(L) 8.9 - 10.2 mg/dL 09/05/2025 1:33 AM EST [facility] eGFRcr 14.1 mL/min/1.7 3m*2 09/05/2025 1:33 AM EST [facility] Comment:Reported eGFRcr in m L/min/1.73m2 is based the CKD-EPI 2020 equation that does not use a race coefficient. Blood Venous blood specimen / Unknown Venipuncture / Unknown 09/05/2025 12:56 AM EST 09/05/2025 1:01 AM EST us Jose Antonio Hernández MD LAB BLOOD ORDERABLES Final R esult Performing Organization Address City/State/[facility] Co de Phone Number [facility] [address] [place] [address] * (ABNORMAL) CBC (09/05/2025 12:56 AM EST) WBC Count 7.60 3.70 - 10.30 10*3/uL LAB HEMATOLOGY METHOD 09/05/2025 3:19 AM EST [facility] RBC Count 2.61(L) 3.90 - 5.20 10*6/uL LAB HEMATOLOGY METHOD 09/05/2025 3:19 AM EST [facility] HGB 7.9(L) 11.2 - 15.7 g/dL LAB HEMATOLOGY METHOD 09/05/2025 3:19 AM EST [facility] HCT 23.4(L) 34.0 - 45.0 % LAB HEMATOLOGY METHOD 09/05/2025 3:19 AM EST [facility] Platelet Count 64(L) 155 - 369 10*3/uL LAB HEMATOLOGY METHOD 09/05/2025 3:19 AM EST [facility] MCV 90 79 - 98 fL LAB HEMATOLOGY METHOD 09/05/2025 3:19 AM EST [facility] MCH 30.3 26.0 - 32.0 pg LAB HEMATOLOGY METHOD 09/05/2025 3:19 AM EST [facility] MCHC 33.8 30.7 - 35.5 g/dL LAB HEMATOLOGY METHOD 09/05/2025 3:19 AM EST [facility] RDW 14.5 11.5 - 14.5 % LAB HEMATOLOGY METHOD 09/05/2025 3:19 AM EST [facility] MPV LAB HEMATOLOGY METHOD 09/05/2025 3:19 AM EST [facility] Comment:Not Measured nRBC 0.0 <=0.0 per 100 WBCs LAB HEMATOLOGY METHOD 09/05/2025 3:19 AM EST [facility] Blood Venous blood specimen / Unknown Venipuncture / Unknown 09/05/2025 12:56 AM EST 09/05/2025 1:01 AM EST Jose Antonio Hernández MD LAB BLOOD ORDERABLES Final R esult [facility] [address] [place] [address] * XR Femur Left 2+ Views (09/04/2025 1:11 PM EST) Anatomical Region Laterality Modality Lower Extremities, Femur Left Digital Radiography Impressions 09/04/2025 1:23 PM EST Expected postoperative changes of cephalomedullary fixation of femoral neck fracture with improved fracture fragment alignment. CRITICAL RESULT: No. COMMUNICATION: Per this written report. Drafted by Cy Saha MD on 09/04/2025 1:20 PM Final report signed by Cy Saha MD on 09/04/2025 1:23 PM Narrative 09/04/2025 1:23 PM EST CLINICAL INDICATION: sp CMN TECHNIQUE: XR FEMUR LEFT 2+ VIEWS COMPARISON: CT dated September 03, 2025. FINDINGS: 2 views of the left femur show cephalomedullary fixation of intertrochanteric fracture of the femoral neck. Internal fixation of healed lateral tibial plateau fracture. Medial compartment knee joint space narrowing and osteophyte formation. Procedure Note Cy Saha MD - 09/04/2025 CLINICAL INDICATION: sp CMN TECHNIQUE: XR FEMUR LEFT 2+ VIEWS COMPARISON: CT dated September 03, 2025. FINDINGS: 2 views of the left femur show cephalomedullary fixation ofintertrochanteric fracture of the femoral neck. Internal fixation ofhealed lateral tibial plateau fracture. Medial compartment knee jointspace narrowing and osteophyte formation. IMPRESSION: Expected postoperative changes of cephalomedullary fixation of femoralneck fracture with improved fracture fragment alignment. CRITICAL RESULT: No. COMMUNICATION: Per this written report. Drafted by Cy Saha MD on 09/04/2025 1:20 PM Final report signed by Cy Saha MD on 09/04/2025 1:23 PM us Jose Antonio Hernández MD IMG XR PROCEDURES Final Resu lt * FL Less than 1 Hour Intraoperative (09/04/2025 12:02 PM EST) Narrative IMAGING - 09/04/2025 12:03 PM EST Images were obtained for surgical purposes. See Jose Antonio Hernández's surgical note in the patient's chart for the findings. Jose Antonio Hernández MD IMG FLUOROSCOPY PROCEDURES F inal Result IMAGING * Transfuse RBC (09/04/2025 11:04 AM EST) Vaishnavi Rosales PATTERNMAKER APPRENTICE WOOD BLOOD TRANSFUSION ORDERABLES Final Result * (ABNORMAL) POCT arterial blood gas gem (09/04/2025 10:56 AM EST) pH, Arterial 7.39 7.31 - 7.42 09/05/2025 2:30 PM EST [facility] pCO2, Arterial 41 35 - 48 mm Hg 09/05/2025 2:30 PM EST [facility] pO2, Arterial 80 >60 mm Hg 09/05/2025 2:30 PM EST [facility] SO2, Arterial 98 94 - 98 % 09/05/2025 2:30 PM EST [facility] FIO2 70.0 % 09/05/2025 2:30 PM EST [facility] Base Excess, Arterial -0.2 -2 - 3 mmol/L 09/05/2025 2:30 PM EST [facility] HCO3, Arterial 24.8 22 - 26 mmol/L 09/05/2025 2:30 PM EST [facility] Total Hemoglobin, Arterial, Whole Blood 7.8(L) 11.2 - 15.7 g/dL 09/05/2025 2:30 PM EST [facility] Hematocrit, Arterial 23.0(L) 34.0 - 45.0 % 09/05/2025 2:30 PM EST [facility] Sodium, Arterial 127(L) 136 - 145 mmol/L 09/05/2025 2:30 PM EST [facility] Potassium, Arterial 5.1(H) 3.6 - 4.9 mmol/L 09/05/2025 2:30 PM EST [facility] Chloride, Whole Blood 101 97 - 107 mmol/L 09/05/2025 2:30 PM EST [facility] Glucose, Arterial 104(H) 74 - 99 mg/dL 09/05/2025 2:30 PM EST [facility] Ionized Calcium, Arterial 5.0 4.6 - 5.1 mg/dL 09/05/2025 2:30 PM EST [facility] Lactate, Arterial 0.6 0.5 - 1.6 mmol/L 09/05/2025 2:30 PM EST [facility] Body Temperature 37.0 Celsius 09/05/2025 2:30 PM EST [facility] pH, Temp Corrected, Arterial 7.39 7.31 - 7.42 09/05/2025 2:30 PM EST [facility] pCO2, Temp Corrected, Arterial 41 35 - 48 mm Hg 09/05/2025 2:30 PM EST [facility] pO2, Temp Corrected, Arterial 80 >60 mm Hg 09/05/2025 2:30 PM EST [facility] Aerophysics Engineer ID Vaishnavi Rosales 09/05/2025 2:30 PM EST [facility] Blood, Arterial Whole blood specimen / Unknown 09/04/2025 10:56 AM EST 09/05/2025 2:30 PM EST us Renu Barros MD LAB POINT OF CARE TE ST DOCKED DEVICE UNSOLICITED RESULTS Final Result Performing Organization Address City/[facility] Co de Phone Number [facility] [address] [place] [address] * ECG Adult (09/04/2025 9:58 AM EST) EKG DIAGNOSIS CLASS Abnormal MUSE ECG Ventricular Rate 65 BPM MUSE ECG Atrial Rate 65 BPM MUSE ECG NH Interval 172 ms MUSE ECG QRSD Interval 84 ms MUSE ECG QT Interval 448 ms MUSE ECG QTC Interval 465 ms MUSE ECG P [place] 41 degrees MUSE ECG R [place] -13 degrees MUSE ECG T Wave [place] 100 degrees MUSE ECG Diagnosis Sinus rhythm with marked sinus arrhythmia MUSE ECG Diagnosis Minimal voltage criteria for LVH, may be normal variant ( Sokolow-Lin ) MUSE ECG Diagnosis Septal infarct , age undetermined MUSE ECG Diagnosis Abnormal ECG MUSE ECG Diagnosis MUSE ECG Diagnosis Confirmed by William Richmond ([id number]) on 09/04/2025 10:16:03 AM MUSE ECG 09/04/2025 9:58 AM EST 09/04/2025 10:16 AM EST us Quang Rodriguez MD ECG ORDERABLES Final Result MUSE ECG * Lavender Top (09/04/2025 9:00 AM EST) Extra Hold for add-ons 09/04/2025 12:01 PM EST [facility] Comment:Auto resulted. Blood Venous blood specimen / Unknown 09/04/2025 9:00 AM EST 09/04/2025 9:07 AM EST us Renu Barros MD LAB BLOOD ORDERABLES Final Resul t [facility] [address] [place] [address] * (ABNORMAL) Renal function panel (09/04/2025 9:00 AM EST) Glucose, Plasma 101(H) 74 - 99 mg/dL 09/04/2025 9:38 AM EST [facility] BUN, Plasma 37(H) 8 - 23 mg/dL 09/04/2025 9:38 AM EST [facility] Creatinine, Plasma 3.16(H) 0.60 - 1.10 mg/dL 09/04/2025 9:38 AM EST [facility] BUN/Creatinine Ratio 12 09/04/2025 9:38 AM EST [facility] Sodium, Plasma 129(L) 136 - 145 mmol/L 09/04/2025 9:38 AM EST [facility] Potassium, Plasma 5.4(H) 3.6 - 4.9 mmol/L 09/04/2025 9:38 AM EST [facility] Chloride, Plasma 98 97 - 107 mmol/L 09/04/2025 9:38 AM EST [facility] CO2, Plasma 23 22 - 29 mmol/L 09/04/2025 9:38 AM EST [facility] Anion Gap 8 6 - 16 mmol/L 09/04/2025 9:38 AM EST [facility] Total Calcium, Plasma 8.4(L) 8.9 - 10.2 mg/dL 09/04/2025 9:38 AM EST [facility] Phosphorus, Plasma 3.4 2.5 - 4.5 mg/dL 09/04/2025 9:38 AM EST [facility] Albumin, Plasma 3.3(L) 3.5 - 5.2 g/dL 09/04/2025 9:38 AM EST [facility] eGFRcr 14.1 mL/min/1.7 3m*2 09/04/2025 9:38 AM EST [facility] Comment:Reported eGFRcr in m L/min/1.73m2 is based the CKD-EPI 2020 equation that does not use a race coefficient. Blood Venous blood specimen / Unknown Venipuncture / Unknown 09/04/2025 9:00 AM EST 09/04/2025 9:08 AM EST us Renu Barros MD LAB BLOOD ORDERABLES Final Resul t [facility] [address] [place] [address] * ECHO, ADULT TRANSTHORACIC COMPLETE (09/04/2025 8:40 AM EST) Height 157.5 ANTONY ISCV Weight 50.3 ANTONY ISCV BSA 1.49 m2 ANTONY ISCV LVIDd 33 mm ANTONY ISCV LVIDs 23 mm ANTONY ISCV IVSd 11 mm ANTONY ISCV LVPWd 11 mm ANTONY ISCV LV MASS(C)D 109 g ANTONY ISCV [facility] CV ECHO LV MASS INDEX 73 g/m2 ANTONY ISCV LV RWT 0.67 mm ANTONY ISCV LV EDV(MOD-4ch) 62 mL ANTONY ISCV LV ESV(MOD4ch) 25 mL ANTONY ISCV EF(MOD-sp4) 60 % ANTONY ISCV LV EDV(MOD-2ch) 74 mL ANTONY ISCV LV ESV(MOD2ch) 27 mL ANTONY ISCV EF(MOD-sp2) 64 % ANTONY ISCV EDV(MOD-bp) 68 mL ANTONY ISCV ESV(MOD-bp) 26 mL ANTONY ISCV EF(MOD-bp) 62 % ANTONY ISCV LVOT diam 19 mm ANTONY ISCV LVOT AREA 2.8 cm2 ANTONY ISCV LV V1 VTI 34.8 cm ANTONY ISCV SV(LVOT) 99 mL ANTONY ISCV MV E Vmax 74.0 cm/s ANTONY ISCV MV A Vmax 104.0 cm/s ANTONY ISCV MV E/A 0.7 cm/s ANTONY ISCV TR Vmax 270.0 cm/s ANTONY ISCV LA dimension 36 mm ANTONY ISCV RV base 37 mm ANTONY ISCV RV Mid 29 mm ANTONY ISCV RV Length 63 mm ANTONY ISCV RV s' [place] 12.1 cm/s ANTONY ISCV TAPSE 19 mm ANTONY ISCV TR Max PG 29 mmHG ANTONY ISCV PA acc time 140 msec ANTONY ISCV mean PAP 16 mmHg ANTONY ISCV LV V1 Vmax 130.0 cm/s ANTONY ISCV Ao V2 VTI 48.5 cm ANTONY ISCV Ao mean PG 8 mmHg ANTONY ISCV Ao V2 Vmax 195.0 cm/s ANTONY ISCV Ao max PG 15 mmHg ANTONY ISCV AV VTI Index 0.72 ANTONY ISCV VIJI(I,D) 2.0 cm2 ANTONY ISCV VIJI(VTI)/BSA_ph l 1.4 cm2/m2 ANTONY ISCV MV V2 VTI 47.6 cm ANTONY ISCV MV MG 3 mmHg ANTONY ISCV MV V2 max 131.0 cm/s ANTONY ISCV MV max PG 7 mmHg ANTONY ISCV MV dec slope 464 cm/s2 ANTONY ISCV MV dec time 380 ms ANTONY ISCV MV P1/2t 110 ms ANTONY ISCV MVA(P1/2t) 2.0 cm2 ANTONY ISCV Asc Ao Diam 24 mm ANTONY ISCV PA NH(ACCEL) 14.2 mmHg ANTONY ISCV LV mean PG 4.0 mmHG ANTONY ISCV LV V1 mean 89.4 cm/sec ANTONY ISCV LV max PG 6.8 mmHg ANTONY ISCV LVLs ap2 6.1 mm ANTONY ISCV AV-pr VR 0.7 ANTONY ISCV Ao V2 mean 135.0 cm/s ANTONY ISCV RVSP 37 mmHg ANTONY ISCV RAP systole 8 mmHg ANTONY ISCV Ao Root Diam 24 mm ANTONY ISCV LAV(MOD-4ch) 41 mL ANTONY ISCV RA MOD 4Ch 42 mL ANTONY ISCV RUTH 28 mL/m2 ANTONY ISCV LAV(MOD-bp) Indexed 33 mL/m2 ANTONY ISCV LAV(MOD-2ch) 57 mL ANTONY ISCV LV Sept e' [place] 5.2 cm/s ANTONY ISCV Sep E/e' 14.2 ANTONY ISCV Anatomical Region Laterality Modality Echocardiography Narrative 09/04/2025 9:22 AM EST Left Ventricle: The left ventricle is small. There is concentric remodeling. The left ventricular systolic function is normal. The LVEF as measured by biplane volume is 62%. The peak intracavitary gradient is 39 mmHg. The diastolic function is abnormal. There is grade I (mild) diastolic dysfunction. 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 The peak gradient is 15 mmHg. The mean gradient is 8 mmHg. The gradient is normal for this prosthetic valve. Compared to the most recently available prior study, and allowing for differences in image quality and technique, there is no significant interval change noted. Left Ventricle The left ventricle is small. There is concentric remodeling. The left ventricular systolic function is normal. The LVEF as measured by biplane volume is 62%. The peak intracavitary gradient is 39 mmHg. The diastolic function is abnormal. There is grade I (mild) diastolic dysfunction. The left ventricular wall motion is normal. Right Ventricle The right ventricle is normal in size. The right ventricular systolic function is normal. Right ventricular systolic pressure is mildly elevated (35-40mmHg). Left Atrium The left atrial size is normal with an indexed volume of 16-34 mL/m2. The interatrial septum is intact with no evidence for an atrial septal defect. Right Atrium The right atrial volume index is normal (<30mL/m2). IVC/SVC The IVC was not well visualized, and an assumed pressure of 8mmHg was used for calculations. Mitral Valve The mitral valve leaflets are normal in appearance with no evidence of mitral valve prolapse. There is trace mitral regurgitation. There is no mitral stenosis. Tricuspid Valve The tricuspid valve is normal in appearance. There is mild tricuspid regurgitation. There is no tricuspid stenosis. 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 There is trace aortic valve regurgitation. The peak gradient is 15 mmHg. The mean gradient is 8 mmHg. The gradient is normal for this prosthetic valve. Pulmonic Valve The pulmonic valve is normal in appearance. There is physiologic pulmonic regurgitation. There is no pulmonic stenosis. Pericardium No pericardial effusion. Great Vessels The aortic root is normal in size. The sinus of Valsalva (aortic root) diameter is 24 mm by leading edge to leading edge method. In the maximally visualized portion, the ascending aorta appears normal in size. The main pulmonary artery is not well visualized. Study Details A complete transthoracic echocardiogram using two-dimensional (2D), m-mode, color and spectral flow Doppler imaging was performed. During the study the apical, parasternal, subcostal and suprasternal view was captured. Overall the study quality was adequate. Heart rate was normal. Height: 157.5 cm. Weight: 50.3 kg. BSA: 1.49 m2. The heart rhythm during this exam was most suggestive of a sinus rhythm. Study Recommendation Compared to the most recently available prior study, and allowing for differences in image quality and technique, there is no significant interval change noted. us Emani Cunningham DO CV ECHO PROCEDURES Final Result * (ABNORMAL) POCT glucose meter (09/04/2025 8:01 AM EST) POCT Glucose 106(H) 74 - 99 mg/dL 09/04/2025 8:03 AM EST [facility] Comment:Accuracy of a glucos e result obtained from a capillary whole blood specimen relies upon adequate, non-compromised capillary blood flow. If the capillary glucose result is not consistent with the patient's clinical signs and symptoms, glucose testing should be repeated with either an arterial or venous sample on the glucometer or sent to the main labortory for testing. Comment 09/04/2025 8:03 AM EST [facility] Aerophysics Engineer ID Lisette Decker 09/04/20 8:03 AM EST [facility] Device ID [id number] 09/04/2025 8:03 AM EST [facility] Specimen Type POC Capillary 09/04/2025 8:03 AM EST [facility] Blood Capillary blood specimen / Unknown 09/04/2025 8:01 AM EST 09/04/2025 8:03 AM EST Renu Barros MD LAB POINT OF CARE TE ST DOCKED DEVICE UNSOLICITED RESULTS Final Result [facility] [address] [place] [address] * (ABNORMAL) POCT glucose meter (09/04/2025 6:31 AM EST) POCT Glucose 133(H) 74 - 99 mg/dL 09/04/2025 6:32 AM EST [facility] Comment:Accuracy of a glucos e result obtained from a capillary whole blood specimen relies upon adequate, non-compromised capillary blood flow. If the capillary glucose result is not consistent with the patient's clinical signs and symptoms, glucose testing should be repeated with either an arterial or venous sample on the glucometer or sent to the main labortory for testing. Comment 09/04/2025 6:32 AM EST [facility] Aerophysics Engineer ID Damaris Cunningham 025 6:32 AM EST [facility] Device ID [id number] 09/04/2025 6:32 AM EST [facility] Specimen Type POC Capillary 09/04/2025 6:32 AM EST [facility] Blood Capillary blood specimen / Unknown 09/04/2025 6:31 AM EST 09/04/2025 6:32 AM EST Renu Barros MD LAB POINT OF CARE TE ST DOCKED DEVICE UNSOLICITED RESULTS Final Result Performing Organization Address City/State/[facility] Co de Phone Number [facility] [address] [place] [address] * POCT glucose meter (09/04/2025 5:59 AM EST) [facility] POCT Glucose 87 74 - 99 mg/dL 09/04/2025 6:00 AM EST [facility] Comment:Accuracy of a glucos e result obtained from a capillary whole blood specimen relies upon adequate, non-compromised capillary blood flow. If the capillary glucose result is not consistent with the patient's clinical signs and symptoms, glucose testing should be repeated with either an arterial or venous sample on the glucometer or sent to the main labortory for testing. Comment 09/04/2025 6:00 AM EST [facility] Aerophysics Engineer ID Tamiko Gottlieb 09/04/2025 6:00 AM EST [facility] Device ID [id number] 09/04/2025 6:00 AM EST [facility] Specimen Type POC Capillary 09/04/2025 6:00 AM EST [facility] Blood Capillary blood specimen / Unknown 09/04/2025 5:59 AM EST 09/04/2025 6:00 AM EST Emani Aníbal DO LAB POINT OF CARE TE ST DOCKED DEVICE UNSOLICITED RESULTS Final Result Performing Organization Address City/[facility]/ZIP Co de Phone Number [facility] [address] [place] [address] * Methicillin Resistant Staphylococcus aureus (MRSA) by PCR (09/04/2025 5:00 AM EST) Methicillin Resistant Staphylococcus aureus (MRSA) by PCR Not Detected Not Detected 09/04/2025 7:07 AM EST [facility] Swab Both anterior nares / Unknown Non-blood Collection / Unknown 09/04/2025 5:00 AM EST 09/04/2025 5:49 AM EST Narrative [facility] - 09/04/2025 7:07 AM EST This test is FDA approved for use with nares swab specimens using the eSwabs. This test is used for clinical purposes. It should not be regarded as investigational or for research. This laboratory is certified under the Clinical Laboratory improvement Amendments of 1988 (CLIA-88 as qualified to perform high complexity clinical laboratory testing. Emani Cunningham DO LAB MICROBIOLOGY - GENERAL ORDE RABLES Final Result Performing Organization Address City/[facility] Co de Phone Number [facility] [address] [place] [address] * (ABNORMAL) POCT glucose meter (09/04/2025 4:59 AM EST) POCT Glucose 120(H) 74 - 99 mg/dL 09/04/2025 5:00 AM EST [facility] Comment:Accuracy of a glucos e result obtained from a capillary whole blood specimen relies upon adequate, non-compromised capillary blood flow. If the capillary glucose result is not consistent with the patient's clinical signs and symptoms, glucose testing should be repeated with either an arterial or venous sample on the glucometer or sent to the main labortory for testing. Comment 09/04/2025 5:00 AM EST [facility] Aerophysics Engineer ID FlorkowskiDamaris 025 5:00 AM EST [facility] Device ID [id number] 09/04/2025 5:00 AM EST [facility] Specimen Type POC Capillary 09/04/2025 5:00 AM EST [facility] Blood Capillary blood specimen / Unknown 09/04/2025 4:59 AM EST 09/04/2025 5:00 AM EST Emanimary Cunningham LAB POINT OF CARE TE ST DOCKED DEVICE UNSOLICITED RESULTS Final Result Performing Organization Address City/[facility] Co de Phone Number [facility] [address] [place] [address] * (ABNORMAL) POCT glucose meter (09/04/2025 4:03 AM EST) POCT Glucose 168(H) 74 - 99 mg/dL 09/04/2025 4:05 AM EST [facility] Comment:Accuracy of a glucos e result obtained from a capillary whole blood specimen relies upon adequate, non-compromised capillary blood flow. If the capillary glucose result is not consistent with the patient's clinical signs and symptoms, glucose testing should be repeated with either an arterial or venous sample on the glucometer or sent to the main labortory for testing. Comment 09/04/2025 4:05 AM EST [facility] Aerophysics Engineer ID Tamiko Gottlieb 09/04/2025 4:05 AM EST [facility] Device ID [id number] 09/04/2025 4:05 AM EST [facility] Specimen Type POC Capillary 09/04/2025 4:05 AM EST [facility] Blood Capillary blood specimen / Unknown 09/04/2025 4:03 AM EST 09/04/2025 4:05 AM EST Emani Aníbal LAB POINT OF CARE TE ST DOCKED DEVICE UNSOLICITED RESULTS Final Result Performing Organization Address City/[facility]/ZIP Co de Phone Number [facility] [address] [place] [address] * (ABNORMAL) Protime-INR (09/04/2025 12:09 AM EST) Prothrombin Time 15.1(H) 12.0 - 14.3 sec LAB COAGULATION METHOD 09/04/2025 12:42 AM EST [facility] INR 1.1 0.9 - 1.1 LAB COAGULATION METHOD 09/04/2025 12:42 AM EST [facility] Blood Venous blood specimen / Unknown Venipuncture / Unknown 09/04/2025 12:09 AM EST 09/04/2025 12:25 AM EST [facility] - 09/04/2025 12:42 AM EST OPTIMAL INR RANGES FOR PATIENT ON ORAL ANTICOAGULANT THERAPY Prevention of venous thromboembolism INR 2.0 to 3.0 In patients with heart disease: Atrial fibrillation INR 2.0 to 3.0 Valvular heart disease INR 2.0 to 3.0 Tissue heart valves INR 2.0 to 3.0 Mechanical prosthetic valves INR 2.5 to 3.5 Prevention of recurrent VT INR 2.5 to 3.5 us Araceli HERNANDES LAB BLOOD ORDERABLES Final Re sult [facility] [address] [place] [address] * (ABNORMAL) Comprehensive metabolic panel (09/04/2025 12:09 AM EST) Glucose, Plasma 129(H) 74 - 99 mg/dL 09/04/2025 1:01 AM EST [facility] BUN, Plasma 38(H) 8 - 23 mg/dL 09/04/2025 1:01 AM EST [facility] Creatinine, Plasma 3.19(H) 0.60 - 1.10 mg/dL 09/04/2025 1:01 AM EST [facility] BUN/Creatinine Ratio 12 09/04/2025 1:01 AM EST [facility] Sodium, Plasma 128(L) 136 - 145 mmol/L 09/04/2025 1:01 AM [facility] Potassium, Plasma 6.0(H) 3.6 - 4.9 mmol/L 09/04/2025 1:01 AM EST [facility] Chloride, Plasma 98 97 - 107 mmol/L 09/04/2025 1:01 AM EST [facility] CO2, Plasma 22 22 - 29 mmol/L 09/04/2025 1:01 AM EST [facility] Anion Gap 8 6 - 16 mmol/L 09/04/2025 1:01 AM EST [facility] Total Calcium, Plasma 8.0(L) 8.9 - 10.2 mg/dL 09/04/2025 1:01 AM EST [facility] Total Protein 5.2(L) 6.3 - 7.9 g/dL 09/04/2025 1:01 AM [facility] Albumin, Plasma 3.2(L) 3.5 - 5.2 g/dL 09/04/2025 1:01 AM EST [facility] AST, Plasma 37(H) 10 - 35 U/L 09/04/2025 1:01 AM EST [facility] ALT, Plasma 21 10 - 35 U/L 09/04/2025 1:01 AM EST [facility] Alkaline Phosphatase, Plasma 39(L) 46 - 142 U/L 09/04/2025 1:01 AM EST [facility] Total Bilirubin, Plasma <0.2(L) 0.2 - 1.1 mg/dL 09/04/2025 1:01 AM [facility] eGFRcr 13.9 mL/min/1.7 3m*2 09/04/2025 1:01 AM [facility] Comment:Reported eGFRcr in m L/min/1.73m2 is based the CKD-EPI 2020 equation that does not use a race coefficient. Blood Venous blood specimen / Unknown Venipuncture / Unknown 09/04/2025 12:09 AM EST 09/04/2025 12:26 AM EST us Araceli HERNANDES LAB BLOOD ORDERABLES Final Re sult [facility] [address] [place] [address] * (ABNORMAL) CBC W/O Differential (09/04/2025 12:09 AM EST) WBC Count 6.75 3.70 - 10.30 10*3/uL LAB HEMATOLOGY METHOD 09/04/2025 1:06 AM [facility] RBC Count 2.79(L) 3.90 - 5.20 10*6/uL LAB HEMATOLOGY METHOD 09/04/2025 1:06 AM [facility] HGB 8.2(L) 11.2 - 15.7 g/dL LAB HEMATOLOGY METHOD 09/04/2025 1:06 AM EST [facility] HCT 25.5(L) 34.0 - 45.0 % LAB HEMATOLOGY METHOD 09/04/2025 1:06 AM EST [facility] Platelet Count 72(L) 155 - 369 10*3/uL LAB HEMATOLOGY METHOD 09/04/2025 1:06 AM EST [facility] MCV 91 79 - 98 fL LAB HEMATOLOGY METHOD 09/04/2025 1:06 AM EST [facility] MCH 29.4 26.0 - 32.0 pg LAB HEMATOLOGY METHOD 09/04/2025 1:06 AM EST [facility] MCHC 32.2 30.7 - 35.5 g/dL LAB HEMATOLOGY METHOD 09/04/2025 1:06 AM EST [facility] RDW 14.1 11.5 - 14.5 % LAB HEMATOLOGY METHOD 09/04/2025 1:06 AM EST [facility] MPV LAB HEMATOLOGY METHOD 09/04/2025 1:06 AM EST [facility] Comment:Not Measured nRBC 0.0 <=0.0 per 100 WBCs LAB HEMATOLOGY METHOD 09/04/2025 1:06 AM EST [facility] Blood Venous blood specimen / Unknown Venipuncture / Unknown 09/04/2025 12:09 AM EST 09/04/2025 12:31 AM EST us Araceli HERNANDES LAB BLOOD ORDERABLES Final Re sult [facility] [address] [place] [address] * (ABNORMAL) CBC W/O Differential (09/03/2025 5:53 PM EST) WBC Count 7.41 3.70 - 10.30 10*3/uL LAB HEMATOLOGY METHOD 09/03/2025 6:25 PM EST [facility] RBC Count 2.87(L) 3.90 - 5.20 10*6/uL LAB HEMATOLOGY METHOD 09/03/2025 6:25 PM EST [facility] HGB 8.8(L) 11.2 - 15.7 g/dL LAB HEMATOLOGY METHOD 09/03/2025 6:25 PM EST [facility] HCT 26.6(L) 34.0 - 45.0 % LAB HEMATOLOGY METHOD 09/03/2025 6:25 PM EST [facility] Platelet Count 77(L) 155 - 369 10*3/uL LAB HEMATOLOGY METHOD 09/03/2025 6:25 PM EST [facility] MCV 93 79 - 98 fL LAB HEMATOLOGY METHOD 09/03/2025 6:25 PM EST [facility] MCH 30.7 26.0 - 32.0 pg LAB HEMATOLOGY METHOD 09/03/2025 6:25 PM EST [facility] MCHC 33.1 30.7 - 35.5 g/dL LAB HEMATOLOGY METHOD 09/03/2025 6:25 PM EST [facility] RDW 14.1 11.5 - 14.5 % LAB HEMATOLOGY METHOD 09/03/2025 6:25 PM EST [facility] MPV LAB HEMATOLOGY METHOD 09/03/2025 6:25 PM EST [facility] Comment:Not Measured nRBC 0.0 <=0.0 per 100 WBCs LAB HEMATOLOGY METHOD 09/03/2025 6:25 PM EST [facility] Blood Venous blood specimen / Unknown Venipuncture / Unknown 09/03/2025 5:53 PM EST 09/03/2025 6:10 PM EST us Emani Cunningham DO LAB BLOOD ORDERABLES Final Resu lt [facility] [address] [place] [address] * (ABNORMAL) POCT glucose meter (09/03/2025 5:21 PM EST) POCT Glucose 176(H) 74 - 99 mg/dL 09/03/2025 5:23 PM EST [facility] Comment:Accuracy of a glucos e result obtained from a capillary whole blood specimen relies upon adequate, non-compromised capillary blood flow. If the capillary glucose result is not consistent with the patient's clinical signs and symptoms, glucose testing should be repeated with either an arterial or venous sample on the glucometer or sent to the main labortory for testing. Comment 09/03/2025 5:23 PM EST [facility] Aerophysics Engineer ID Shanita Knight 09/03/2025 5:23 PM EST [facility] Device ID [id number] 09/03/2025 5:23 PM EST [facility] Specimen Type POC Capillary 09/03/2025 5:23 PM EST [facility] Blood Capillary blood specimen / Unknown 09/03/2025 5:21 PM EST 09/03/2025 5:23 PM EST Emani Cunningham DO LAB POINT OF CARE TE ST DOCKED DEVICE UNSOLICITED RESULTS Final Result [facility] [address] [place] [address] * CT Bony Pelvis (09/03/2025 4:49 PM EST) Anatomical Region Laterality Modality Pelvis Computed Tomogra phy Impressions 09/03/2025 5:01 PM EST Acute comminuted angulated intertrochanteric left femur fracture. Degenerative changes and demineralization as described. Cummings hyperdense structure in the region of the right renal pelvis which was present on prior radiograph and may represent a large renal calculus. CRITICAL RESULT: No. COMMUNICATION: Per this written report. Drafted by Aureliano Wilson MD on 09/03/2025 4:56 PM Final report signed by Aureliano Wilson MD on 09/03/2025 5:01 PM Narrative 09/03/2025 5:01 PM EST CLINICAL INDICATION: Hip trauma, fracture suspected, xray done TECHNIQUE: Multiple axial CT images of bony pelvis were obtained without contrast administration. Reformatted images in the coronal and/or sagittal plane(s) were generated from the axial data set to facilitate diagnostic accuracy and/or surgical planning. Total DLP (Dose-Length Product): 140.70 mGy.cm. Please note: The reported value represents the total of one or more individual components during the CT acquisition on this date and at this time, and as such, the same value may appear in more than one CT report depending on the interpreting/reporting physicians. COMPARISON: Radiographs 09/03/2025 FINDINGS: Demineralization limits evaluation. Redemonstration of an acute comminuted fracture of the intertrochanteric left femur with varus angulation. Bilateral greater trochanteric enthesopathy. No pubic symphyseal or sacroiliac joint diastases. Mild sacroiliac joint and moderate pubic symphyseal degenerative changes. Minimal to mild bilateral hip joint space narrowing and osteophytosis. Mild L4-5 and moderate L5-S1 discogenic disease. Atherosclerotic vascular calcifications are seen. Small left hip effusion. Marked swelling of the left adductor musculature. Hyperdense oblong structure is seen in the region of the right renal pelvis which was present on the initial pelvis radiograph from outside hospital on 09/03/2025. This is only partially imaged. Left gluteal injection granulomas. Procedure Note Aureliano Wilson MD - 09/03/2025 CLINICAL INDICATION: Hip trauma, fracture suspected, xray done TECHNIQUE: Multiple axial CT images of bony pelvis were obtained without contrastadministration. Reformatted images in the coronal and/or sagittal plane(s)were generated from the axial data set to facilitate diagnostic accuracyand/or surgical planning. Total DLP (Dose-Length Product): 140.70 mGy.cm. Please note: The reportedvalue represents the total of one or more individual components during theCT acquisition on this date and at this time, and as such, the same valuemay appear in more than one CT report depending on theinterpreting/reporting physicians. COMPARISON: Radiographs 09/03/2025 FINDINGS: Demineralization limits evaluation. Redemonstration of an acute comminuted fracture of the intertrochantericleft femur with varus angulation. Bilateral greater trochanteric enthesopathy. No pubic symphyseal or sacroiliac joint diastases. Mild sacroiliac jointand moderate pubic symphyseal degenerative changes. Minimal to mildbilateral hip joint space narrowing and osteophytosis. Mild L4-5 and moderate L5-S1 discogenic disease. Atherosclerotic vascularcalcifications are seen. Small left hip effusion. Marked swelling of theleft adductor musculature. Hyperdense oblong structure is seen in the region of the right renalpelvis which was present on the initial pelvis radiograph from [facility] on 09[facility]03/[facility]. This is only partially imaged. Left glutealinjection granulomas. IMPRESSION: Acute comminuted angulated intertrochanteric left femur fracture. Degenerative changes and demineralization as described. Cummings hyperdense structure in the region of the right renal pelvis whichwas present on prior radiograph and may represent a large renal calculus. CRITICAL RESULT: No. COMMUNICATION: Per this written report. Drafted by Aureliano Wilson MD on 09/03/2025 4:56 PM Final report signed by Aureliano Wilson MD on 09/03/2025 5:01 PM Shane Cannon MD IMG CT PROCEDURES Final Re sult * (ABNORMAL) POCT glucose meter (09/03/2025 4:28 PM EST) POCT Glucose 203(H) 74 - 99 mg/dL 09/03/2025 4:30 PM EST [facility] Comment:Accuracy of a glucos e result obtained from a capillary whole blood specimen relies upon adequate, non-compromised capillary blood flow. If the capillary glucose result is not consistent with the patient's clinical signs and symptoms, glucose testing should be repeated with either an arterial or venous sample on the glucometer or sent to the main labortory for testing. Comment 09/03/2025 4:30 PM EST [facility] Aerophysics Engineer ID Shanita Knight 09/03/2025 4:30 PM EST [facility] Device ID [id number] 09/03/2025 4:30 PM EST [facility] Specimen Type POC Capillary 09/03/2025 4:30 PM EST [facility] Blood Capillary blood specimen / Unknown 09/03/2025 4:28 PM EST 09/03/2025 4:30 PM EST Emani Cunningham DO LAB POINT OF CARE TE ST DOCKED DEVICE UNSOLICITED RESULTS Final Result [facility] [address] [place] [address] * (ABNORMAL) POCT glucose meter (09/03/2025 3:22 PM EST) POCT Glucose 148(H) 74 - 99 mg/dL 09/03/2025 3:23 PM EST [facility] Comment:Accuracy of a glucos e result obtained from a capillary whole blood specimen relies upon adequate, non-compromised capillary blood flow. If the capillary glucose result is not consistent with the patient's clinical signs and symptoms, glucose testing should be repeated with either an arterial or venous sample on the glucometer or sent to the main labortory for testing. Comment 09/03/2025 3:23 PM EST [facility] Aerophysics Engineer ID Shanita Knight 09/03/2025 3:23 PM EST [facility] Device ID [id number] 09/03/2025 3:23 PM EST [facility] Specimen Type POC Capillary 09/03/2025 3:23 PM EST [facility] Blood Capillary blood specimen / Unknown 09/03/2025 3:22 PM EST 09/03/2025 3:23 PM EST us [employer] LAB POINT OF CARE TE ST DOCKED DEVICE UNSOLICITED RESULTS Final Result Performing Organization Address [facility] de Phone Number [facility] [address] [place] [address] * Protein electrophoresis serum, pathologist interpretation (09/03/2025 3:13 PM EST) Clinical Diagnosis, SPEP Displaced intertrochanteric fracture of left femur, initial encounter for closed fracture 09/05/2025 10:25 AM EST [facility] Interpretation , SPEP There are no significant abnormalities in the protein electrophoretic pattern. 09/05/2025 10:25 AM EST [facility] Pathologist Signature, SPEP Reviewed by: Ishaan Alberto MD 09/05/2025 10:25 AM EST [facility] LAB CP ASR DISCLAIMER No 09/05/2025 10:25 AM EST [facility] Blood Venous blood specimen / Unknown Venipuncture / Unknown 09/03/2025 3:13 PM EST 09/03/2025 4:21 PM EST us Agavideo DO LAB PATHOLOGY ORDERABLES Final Result Performing Organization Address [facility]/ZIP Co de Phone Number [facility] [address] [place] [address] * Peripheral blood smear, pathologist interpretation (09/03/2025 3:13 PM EST) Clinical Diagnosis, Peripheral Smear Anemia and Thrombocytopenia LAB HEMATOLOGY METHOD 09/04/2025 4:14 PM EST [facility] Interpretation , Peripheral Smear Moderate normocytic anemia with rare target cells. White blood cells are essentially normal in counts and morphology. Moderate thrombocytopenia with occasional giant platelet forms, without significant clumping. 09/04/2025 4:14 PM EST [facility] Pathologist Signature, Peripheral Smear 09/04/2025 4:14 PM EST [facility] Comment:Reviewed by: Ely Cid MD Blood Venous blood specimen / Unknown Venipuncture / Unknown 09/03/2025 3:13 PM EST 09/03/2025 3:31 PM EST us Emani Cunningham DO LAB PATHOLOGY ORDERABLES Final Result Performing Organization Address City/State/[facility] Co de Phone Number [facility] [address] [place] [address] * (ABNORMAL) Peripheral Blood Smear (09/03/2025 3:13 PM EST) WBC Count 5.87 3.70 - 10.30 10*3/uL LAB HEMATOLOGY METHOD 09/03/2025 5:28 PM EST [facility] RBC Count 2.53(L) 3.90 - 5.20 10*6/uL LAB HEMATOLOGY METHOD 09/03/2025 5:28 PM EST [facility] HGB 7.8(L) 11.2 - 15.7 g/dL LAB HEMATOLOGY METHOD 09/03/2025 5:28 PM EST [facility] HCT 23.3(L) 34.0 - 45.0 % LAB HEMATOLOGY METHOD 09/03/2025 5:28 PM EST [facility] Platelet Count 69(L) 155 - 369 10*3/uL LAB HEMATOLOGY METHOD 09/03/2025 5:28 PM EST [facility] MCV 92 79 - 98 fL LAB HEMATOLOGY METHOD 09/03/2025 5:28 PM EST [facility] MCH 30.8 26.0 - 32.0 pg LAB HEMATOLOGY METHOD 09/03/2025 5:28 PM [facility] MCHC 33.5 30.7 - 35.5 g/dL LAB HEMATOLOGY METHOD 09/03/2025 5:28 PM [facility] RDW 14.1 11.5 - 14.5 % LAB HEMATOLOGY METHOD 09/03/2025 5:28 PM [facility] MPV LAB HEMATOLOGY METHOD 09/03/2025 5:28 PM [facility] Comment:Not Measured Not Chuyita sured nRBC 0.0 <=0.0 per 100 WBCs LAB HEMATOLOGY METHOD 09/03/2025 5:28 PM [facility] Differential Type Automated LAB HEMATOLOGY METHOD 09/03/2025 5:28 PM [facility] Neutrophils % 80 % LAB HEMATOLOGY METHOD 09/03/2025 5:28 PM [facility] Lymphocytes % 9 % LAB HEMATOLOGY METHOD 09/03/2025 5:28 PM [facility] Monocytes % 10 % LAB HEMATOLOGY METHOD 09/03/2025 5:28 PM [facility] Eosinophils % 0 % LAB HEMATOLOGY METHOD 09/03/2025 5:28 PM [facility] Basophils % 0 % LAB HEMATOLOGY METHOD 09/03/2025 5:28 PM [facility] Immature Granulocytes % 1 % LAB HEMATOLOGY METHOD 09/03/2025 5:28 PM [facility] Neutrophils Absolute 4.68 1.60 - 6.10 10*3/uL LAB HEMATOLOGY METHOD 09/03/2025 5:28 PM [facility] Lymphocytes Absolute 0.51(L) 1.20 - 3.90 10*3/uL LAB HEMATOLOGY METHOD 09/03/2025 5:28 PM [facility] Monocytes Absolute 0.56 0.30 - 0.90 10*3/uL LAB HEMATOLOGY METHOD 09/03/2025 5:28 PM [facility] Eosinophils Absolute 0.01 0.00 - 0.50 10*3/uL LAB HEMATOLOGY METHOD 09/03/2025 5:28 PM [facility] Basophils Absolute 0.01 0.00 - 0.10 10*3/uL LAB HEMATOLOGY METHOD 09/03/2025 5:28 PM [facility] Immature Granulocytes Absolute 0.03 0.00 - 0.06 10*3/uL LAB HEMATOLOGY METHOD 09/03/2025 5:28 PM EST [facility] Blood Venous blood specimen / Unknown Venipuncture / Unknown 09/03/2025 3:13 PM EST 09/03/2025 3:31 PM EST Narrative [facility] - 09/03/2025 5:28 PM EST Therapeutic decision making should be based on absolute values, rather than percentages. us Agavideo DO LAB PATHOLOGY ORDERABLES Final Result Performing Organization Address City/[facility]/ZIP Co de Phone Number [facility] [address] [place] [address] * (ABNORMAL) Ferritin (09/03/2025 3:13 PM EST) Ferritin, Serum 169(H) 13 - 150 ng/mL 09/03/2025 4:58 PM EST [facility] Blood Venous blood specimen / Unknown Venipuncture / Unknown 09/03/2025 3:13 PM EST 09/03/2025 4:21 PM EST us Agavideo DO LAB BLOOD ORDERABLES Final Resu lt Performing Organization Address [facility]/[place] [address] * (ABNORMAL) Iron & Total Iron Binding Capacity, Plasma (Includes Transferrin) (09/03/2025 3:13 PM EST) Iron, Plasma 21(L) 30 - 160 ug/dL 09/03/2025 4:28 PM EST [facility] Transferrin, Plasma 150(L) 200 - 360 mg/dL 09/03/2025 4:28 PM EST [facility] Total Iron Binding Capacity, Plasma 188(L) 240 - 450 ug/mL 09/03/2025 4:28 PM EST [facility] Transferrin Saturation 11(L) 14 - 50 % 09/03/2025 4:28 PM EST [facility] Blood Venous blood specimen / Unknown Venipuncture / Unknown 09/03/2025 3:13 PM EST 09/03/2025 3:31 PM EST us Agavideo DO LAB BLOOD ORDERABLES Final Resu lt [facility] [address] [place] [address] * (ABNORMAL) Total Protein, Serum (09/03/2025 3:13 PM EST) Total Protein 5.8(L) 6.2 - 7.7 g/dL 09/03/2025 4:58 PM EST [facility] Blood Venous blood specimen / Unknown Venipuncture / Unknown 09/03/2025 3:13 PM EST 09/03/2025 4:21 PM EST us Emani [employer] DO LAB BLOOD ORDERABLES Final Resu lt Performing Organization Address City/[facility]/ZIP Co de Phone Number [facility] [address] [place] [address] * Protein Electrophoresis, Serum (09/03/2025 3:13 PM EST) Albumin Electrophoresis, Serum 3.6 3.6 - 4.7 g/dL 09/05/2025 3:54 AM EST [facility] Alpha 1 Globulin Electrophoresis, Serum 0.3 0.2 - 0.4 g/dL 09/05/2025 3:54 AM EST [facility] Alpha 2 Globulin Electrophoresis, Serum 0.6 0.5 - 0.9 g/dL 09/05/2025 3:54 AM EST [facility] Beta 1 Globulin Electrophoresis, Serum 0.3 0.3 - 0.5 g/dL 09/05/2025 3:54 AM EST [facility] Beta 2 Globulin Electrophoresis, Serum 0.3 0.2 - 0.5 g/dL 09/05/2025 3:54 AM EST [facility] Gamma Globulin Electrophoresis, Serum 0.7 0.6 - 1.5 g/dL 09/05/2025 3:54 AM EST [facility] Interpretation, Serum Protein Electrophoresis Pathology report to follow. 09/05/2025 3:54 AM EST [facility] Blood Venous blood specimen / Unknown Venipuncture / Unknown 09/03/2025 3:13 PM EST 09/03/2025 4:21 PM EST Emani Cunningham [employer] LAB BLOOD ORDERABLES Final Resu lt Performing Organization Address City/[facility]/ZIP Co de Phone Number [facility] [address] [place] [address] * Ionized calcium, serum (09/03/2025 3:13 PM EST) Ionized Calcium, Serum 4.8 4.6 - 5.3 mg/dL LAB HEMATOLOGY METHOD 09/03/2025 4:48 PM EST [facility] Blood Venous blood specimen / Unknown Venipuncture / Unknown 09/03/2025 3:13 PM EST 09/03/2025 4:21 PM EST us Emanimary Cunningham [employer] LAB BLOOD ORDERABLES Final Resu lt Performing Organization Address [facility] Co la Phone Number [facility] [address] [place] [address] * (ABNORMAL) PTH Intact Total (09/03/2025 3:13 PM EST) PTH Intact Total 119(H) 9 - 77 pg/mL 09/03/2025 5:15 PM EST [facility] Blood Venous blood specimen / Unknown Venipuncture / Unknown 09/03/2025 3:13 PM EST 09/03/2025 4:38 PM EST Narrative [facility] - 09/03/2025 5:15 PM EST Assay performed by immunoassay at the [facility]. Performed on [employer] chemiluminescent immunoassay, tractable to the World Health Organization's first international standard for PTH from the NIBSC, Code 79/500. Results obtained from different test methods or kits cannot be used interchangeably. Emani Aníbal [employer] LAB BLOOD ORDERABLES Final Resu lt Performing Organization Address City/[facility]/ZIP Co de Phone Number [facility] [address] [place] [address] * (ABNORMAL) Comprehensive Metabolic Panel, Plasma (09/03/2025 3:13 PM EST) [facility] Glucose, Plasma 123(H) 74 - 99 mg/dL 09/03/2025 3:58 PM [facility] BUN, Plasma 33(H) 8 - 23 mg/dL 09/03/2025 3:58 PM [facility] Creatinine, Plasma 2.70(H) 0.60 - 1.10 mg/dL 09/03/2025 3:58 PM [facility] BUN/Creatinine Ratio 12 09/03/2025 3:58 PM [facility] Sodium, Plasma 133(L) 136 - 145 mmol/L 09/03/2025 3:58 PM [facility] Potassium, Plasma 5.3(H) 3.6 - 4.9 mmol/L 09/03/2025 3:58 PM [facility] Chloride, Plasma 105 97 - 107 mmol/L 09/03/2025 3:58 PM [facility] CO2, Plasma 22 22 - 29 mmol/L 09/03/2025 3:58 PM [facility] Anion Gap 6 6 - 16 mmol/L 09/03/2025 3:58 PM [facility] Total Calcium, Plasma 7.4(L) 8.9 - 10.2 mg/dL 09/03/2025 3:58 PM [facility] Total Protein 5.0(L) 6.3 - 7.9 g/dL 09/03/2025 3:58 PM [facility] Albumin, Plasma 3.2(L) 3.5 - 5.2 g/dL 09/03/2025 3:58 PM [facility] AST, Plasma 35 10 - 35 U/L 09/03/2025 3:58 PM [facility] ALT, Plasma 16 10 - 35 U/L 09/03/2025 3:58 PM [facility] Alkaline Phosphatase, Plasma 41(L) 46 - 142 U/L 09/03/2025 3:58 PM [facility] Total Bilirubin, Plasma <0.2(L) 0.2 - 1.1 mg/dL 09/03/2025 3:58 PM [facility] eGFRcr 17.0 mL/min/1.7 3m*2 09/03/2025 3:58 PM EST [facility] Comment:Reported eGFRcr in m L/min/1.73m2 is based the CKD-EPI 2020 equation that does not use a race coefficient. Blood Venous blood specimen / Unknown Venipuncture / Unknown 09/03/2025 3:13 PM EST 09/03/2025 3:31 PM EST Agavideo DO LAB BLOOD ORDERABLES Final Resu lt Performing Organization Address City/[facility]/ZIP Co de Phone Number [facility] [address] [place] [address] * Bone Specific Alkaline Phosphatase (09/03/2025 3:13 PM EST) Bone Specific Alkaline Phosphatase 09/06/2025 10:19 AM EST [facility] Comment:See Scanned Report. Testing performed on [employer] [facility]. [address] [place] [id number]. Korey Nettles MD, PhD, Collet Maker. Blood Venous blood specimen / Unknown Venipuncture / Unknown 09/03/2025 3:13 PM EST 09/03/2025 4:21 PM EST Agavideo DO LAB REF LAB BLOOD AND FLUID ORD Final Result Performing Organization Address City/[facility] Co de Phone Number [facility] [address] [place] [address] * Vitamin D 25 hydroxy (09/03/2025 3:13 PM EST) Vitamin D 25 Hydroxy 20.9 20.0 - 80.0 ng/mL 09/03/2025 5:32 PM EST [facility] Blood Venous blood specimen / Unknown Venipuncture / Unknown 09/03/2025 3:13 PM EST 09/03/2025 4:21 PM EST Narrative [facility] - 09/03/2025 5:32 PM EST Testing performed on [employer], standardized against NIST SRM 2972. When testing samples from patients whose predominant form of vitamin D is vitamin D2, such as patients receiving vitamin D2 supplementation, results that are subtherapeutic should be confirmed with another method, such as LC-MS/MS, before being used for patient management. Vitamin D, 25-Hydroxy reference range, age 18 years and up: Deficiency: <12 ng/mL Insufficiency: 12 to 19 ng/mL Sufficiency: 20 to 80 ng/mL Possible toxicity: >100 ng/mL Emani Cunningham DO LAB BLOOD ORDERABLES Final Resu lt [facility] [address] [place] [address] * ECG Adult (09/03/2025 1:44 PM EST) EKG DIAGNOSIS CLASS Abnormal MUSE ECG Ventricular Rate 52 BPM MUSE ECG Atrial Rate 52 BPM MUSE ECG NH Interval 150 ms MUSE ECG QRSD Interval 82 ms MUSE ECG QT Interval 492 ms MUSE ECG QTC Interval 457 ms MUSE ECG P [place] 54 degrees MUSE ECG R [place] -14 degrees MUSE ECG T Wave [place] 59 degrees MUSE ECG Diagnosis Poor data quality, interpretation may be adversely affected MUSE ECG Diagnosis Sinus bradycardia MUSE ECG Diagnosis Possible Septal infarct , age undetermined MUSE ECG Diagnosis Nonspecific T wave abnormality MUSE ECG Diagnosis Abnormal ECG MUSE ECG Diagnosis Recommend repeat ECG MUSE ECG Diagnosis MUSE ECG Diagnosis Reconfirmed by Wyatt Nowak ([id number]) on 09/03/2025 1:46:58 PM MUSE ECG 09/03/2025 1:44 PM EST 09/03/2025 1:46 PM EST Dominick Curtis MD ECG ORDERABLES Edited Resul t - Final Performing Organization Address City/[facility]/ZIP Co de Phone Number MUSE ECG * XR Hip Left 2 or 3 Views (09/03/2025 10:52 AM EST) Anatomical Region Laterality Modality Lower Extremities, Hip Left Digital R adiography Impressions 09/03/2025 12:09 PM EST Unchanged appearance of intratrochanteric left femoral fracture. CRITICAL RESULT: No. COMMUNICATION: Per this written report. Drafted by Ava Coughlin MD on 09/03/2025 12:07 PM Final report signed by Ava Coughlin MD on 09/03/2025 12:09 PM Narrative 09/03/2025 12:09 PM EST CLINICAL INDICATION: traction view TECHNIQUE: XR HIP LEFT 2 OR 3 VIEWS COMPARISON: 2 hours prior FINDINGS: Unchanged appearance of intratrochanteric left femoral fracture. Diffuse osteopenia. Procedure Note Ava Coughlin MD - 09/03/2025 CLINICAL INDICATION: traction view TECHNIQUE: XR HIP LEFT 2 OR 3 VIEWS COMPARISON: 2 hours prior FINDINGS: Unchanged appearance of intratrochanteric left femoral fracture. Diffuseosteopenia. IMPRESSION: Unchanged appearance of intratrochanteric left femoral fracture. CRITICAL RESULT: No. COMMUNICATION: Per this written report. Drafted by Ava Coughlin MD on 09/03/2025 12:07 PM Final report signed by Ava Coughlin MD on 09/03/2025 12:09 PM us Shane Cannon MD IMG XR PROCEDURES Final Re sult * Type and screen (09/03/2025 10:33 AM EST) ABO/Rh A Positive 09/03/2025 10:41 AM EST [facility]LO[facility] Antibody Screen Negative 09/03/2025 10:41 AM EST [facility]LO[facility] Specimen Expiration 09/06/2025 23:59 09/03/2025 10:41 AM EST [facility] Blood Venous blood specimen / Unknown Venipuncture / Unknown 09/03/2025 10:33 AM EST 09/03/2025 10:41 AM EST us Araceli HERNANDES LAB BLOOD BANK TEST ORDERABLE S Final Result BLOOD BANK [address] [place] [address], * XR Chest 1 View (09/03/2025 10:20 AM EST) Anatomical Region Laterality Modality Chest Digital Radiogra phy Impressions 09/03/2025 1:02 PM EST No acute finding. CRITICAL RESULT: No. COMMUNICATION: Per this written report. Drafted by Ava Coughlin MD on 09/03/2025 1:02 PM Final report signed by Ava Coughlin MD on 09/03/2025 1:02 PM Narrative 09/03/2025 1:02 PM EST CLINICAL INDICATION: pre-op TECHNIQUE: XR CHEST 1 VIEW COMPARISON: 01/20/2022 FINDINGS: Cardiomediastinal silhouette is within normal limits. No focal consolidation, pleural effusion, or discrete pneumothorax. Healed right clavicular fracture. Procedure Note Ava Coughlin MD - 09/03/2025 CLINICAL INDICATION: pre-op TECHNIQUE: XR CHEST 1 VIEW COMPARISON: 01/20/2022 FINDINGS: Cardiomediastinal silhouette is within normal limits. No focalconsolidation, pleural effusion, or discrete pneumothorax. Healed rightclavicular fracture. IMPRESSION: No acute finding. CRITICAL RESULT: No. COMMUNICATION: Per this written report. Drafted by Ava Coughlin MD on 09/03/2025 1:02 PM Final report signed by Ava Coughlin MD on 09/03/2025 1:02 PM Araceli HERNANDES IMG XR PROCEDURES Final Resul t * ECG Adult (09/03/2025 9:38 AM EST) EKG DIAGNOSIS CLASS Abnormal MUSE ECG Ventricular Rate 56 BPM MUSE ECG Atrial Rate 56 BPM MUSE ECG NH Interval 170 ms MUSE ECG QRSD Interval 76 ms MUSE ECG QT Interval 478 ms MUSE ECG QTC Interval 461 ms MUSE ECG P [place] 61 degrees MUSE ECG R [place] -9 degrees MUSE ECG T Wave [place] 84 degrees MUSE ECG Diagnosis Poor data quality, interpretation may be adversely affected MUSE ECG Diagnosis Sinus bradycardia MUSE ECG Diagnosis Possible Septal infarct , age undetermined MUSE ECG Diagnosis Nonspecific ST abnormality MUSE ECG Diagnosis Borderline QT interval MUSE ECG Diagnosis Abnormal ECG MUSE ECG Diagnosis Recommend repeat ECG MUSE ECG Diagnosis Confirmed by Wyatt Nowak ([id number]) on 09/03/2025 9:46:20 AM MUSE ECG 09/03/2025 9:38 AM EST 09/03/2025 9:46 AM EST us Araceli Fan PA ECG ORDERABLES Final Result MUSE ECG * (ABNORMAL) Creatine Kinase (CK), Total (09/03/2025 8:26 AM EST) Pathologist [facility] Creatine Kinase, Plasma 819(H) 37 - 168 U/L 09/03/2025 1:05 PM EST [facility] Blood Venous blood specimen / Unknown Venipuncture / Unknown 09/03/2025 8:26 AM EST 09/03/2025 8:29 AM EST us Emani Cunningham [employer] LAB BLOOD ORDERABLES Final Resu lt Performing Organization Address City/[facility]/ZIP Co de Phone Number [facility] [address] [place] [address] * (ABNORMAL) Reticulocytes (09/03/2025 8:26 AM EST) [facility] Reticulocyte Absolute 27.1(L) 40.0 - 110.0 10*3/uL LAB HEMATOLOGY METHOD 09/03/2025 2:13 PM EST [facility] Immature Reticulocyte Fraction 9.7 3.1 - 17.6 % LAB HEMATOLOGY METHOD 09/03/2025 2:13 PM EST [facility] Reticulocyte Hemoglobin 35.1 28 - 38 pg LAB HEMATOLOGY METHOD 09/03/2025 2:13 PM EST [facility] Reticulocyte Count 0.90 0.90 - 2.50 % LAB HEMATOLOGY METHOD 09/03/2025 2:13 PM EST [facility] Blood Venous blood specimen / Unknown Venipuncture / Unknown 09/03/2025 8:26 AM EST 09/03/2025 8:29 AM EST us Emanimary Cunningham DO LAB BLOOD ORDERABLES Final Resu lt Performing Organization Address City/[facility]/ZIP Co de Phone Number [facility] [address] [place] [address] * N-Terminal Probnp (09/03/2025 8:26 AM EST) N-Terminal, PROBNP, Plasma 1,323 0 - 1,799 pg/mL 09/03/2025 12:30 PM EST [facility] Blood Venous blood specimen / Unknown Venipuncture / Unknown 09/03/2025 8:26 AM EST 09/03/2025 8:29 AM EST us Emani Fourie DO LAB BLOOD ORDERABLES Final Resu lt Performing Organization Address [facility]/ZIP Co de Phone Number [facility] [address] [place] [address] * (ABNORMAL) Cystatin C (09/03/2025 8:26 AM EST) Cystatin C 2.09(H) 0.61 - 0.95 mg/L 09/03/2025 1:04 PM EST [facility] Blood Venous blood specimen / Unknown Venipuncture / Unknown 09/03/2025 8:26 AM EST 09/03/2025 8:29 AM EST us Emani Fourie DO LAB BLOOD ORDERABLES Final Resu lt Performing Organization Address [facility] [place] [address] * Magnesium, Plasma (09/03/2025 8:26 AM EST) Magnesium, Plasma 2.0 1.9 - 2.4 mg/dL 09/03/2025 11:55 AM EST [facility] Blood Venous blood specimen / Unknown Venipuncture / Unknown 09/03/2025 8:26 AM EST 09/03/2025 8:29 AM EST us Emani Fourie DO LAB BLOOD ORDERABLES Final Resu lt Performing Organization Address City/[facility] [place] [address] * Phosphorus, Plasma (09/03/2025 8:26 AM EST) Phosphorus, Plasma 3.8 2.5 - 4.5 mg/dL 09/03/2025 11:55 AM EST [facility] Blood Venous blood specimen / Unknown Venipuncture / Unknown 09/03/2025 8:26 AM EST 09/03/2025 8:29 AM EST us Emani Cunningham DO LAB BLOOD ORDERABLES Final Resu lt Performing Organization Address City/[facility]/ZIP Co de Phone Number [facility] [address] [place] [address] * ED HIV 1/2 Antibody/Antigen Screen w/Reflex to HIV 1/2 Differentiation (09/03/2025 8:26 AM EST) HIV 1 & 2 Antibody/Antigen Screen Non Reactive Non Reactive 09/03/2025 9:19 AM EST [facility] Comment:Screening for HIV 1 & 2 antibodies, and P24 antigen is NONREACTIVE. No confirmatory testing is required. Blood Venous blood specimen / Unknown Venipuncture / Unknown 09/03/2025 8:26 AM EST 09/03/2025 8:36 AM EST us Dominick Curtis MD LAB BLOOD ORDERABLES Final R esult Performing Organization Address City/[facility] Co de Phone Number [facility] [address] [place] [address] * Hepatitis C Antibody - ED (09/03/2025 8:26 AM EST) Hepatitis C Antibody Negative Negative 09/03/2025 9:19 AM EST [facility] Blood Venous blood specimen / Unknown Venipuncture / Unknown 09/03/2025 8:26 AM EST 09/03/2025 8:36 AM EST us Dominick Curtis MD LAB BLOOD ORDERABLES Final R esult Performing Organization Address City/[facility]/ZIP Co de Phone Number [facility] [address] [place] [address] * (ABNORMAL) PT-INR (09/03/2025 8:26 AM EST) Prothrombin Time 14.5(H) 12.0 - 14.3 sec 09/03/2025 8:44 AM EST [facility] INR 1.1 0.9 - 1.1 09/03/2025 8:44 AM EST [facility] Blood Venous blood specimen / Unknown Venipuncture / Unknown 09/03/2025 8:26 AM EST 09/03/2025 8:29 AM EST [facility] - 09/03/2025 8:44 AM EST OPTIMAL INR RANGES FOR PATIENT ON ORAL ANTICOAGULANT THERAPY Prevention of venous thromboembolism INR 2.0 to 3.0 In patients with heart disease: Atrial fibrillation INR 2.0 to 3.0 Valvular heart disease INR 2.0 to 3.0 Tissue heart valves INR 2.0 to 3.0 Mechanical prosthetic valves INR 2.5 to 3.5 Prevention of recurrent VT INR 2.5 to 3.5 us Dominick Curtis MD LAB BLOOD ORDERABLES Final R esult [facility] [address] [place] [address] * (ABNORMAL) CBC w/diff (09/03/2025 8:26 AM EST) WBC Count 9.36 3.70 - 10.30 10*3/uL LAB HEMATOLOGY METHOD 09/03/2025 10:33 AM EST [facility] RBC Count 3.06(L) 3.90 - 5.20 10*6/uL LAB HEMATOLOGY METHOD 09/03/2025 10:33 AM EST [facility] HGB 9.1(L) 11.2 - 15.7 g/dL LAB HEMATOLOGY METHOD 09/03/2025 10:33 AM EST [facility] HCT 27.4(L) 34.0 - 45.0 % LAB HEMATOLOGY METHOD 09/03/2025 10:33 AM EST [facility] Platelet Count 79(L) 155 - 369 10*3/uL LAB HEMATOLOGY METHOD 09/03/2025 10:33 AM EST [facility] MCV 90 79 - 98 fL LAB HEMATOLOGY METHOD 09/03/2025 10:33 AM EST [facility] MCH 29.7 26.0 - 32.0 pg LAB HEMATOLOGY METHOD 09/03/2025 10:33 AM [facility] MCHC 33.2 30.7 - 35.5 g/dL LAB HEMATOLOGY METHOD 09/03/2025 10:33 AM [facility] RDW 13.9 11.5 - 14.5 % LAB HEMATOLOGY METHOD 09/03/2025 10:33 AM [facility] MPV LAB HEMATOLOGY METHOD 09/03/2025 10:33 AM [facility] Comment:Not Measured nRBC 0.0 <=0.0 per 100 WBCs LAB HEMATOLOGY METHOD 09/03/2025 10:33 AM [facility] Differential Type Automated LAB HEMATOLOGY METHOD 09/03/2025 10:33 AM [facility] Neutrophils % 89 % LAB HEMATOLOGY METHOD 09/03/2025 10:33 AM [facility] Lymphocytes % 5 % LAB HEMATOLOGY METHOD 09/03/2025 10:33 AM [facility] Monocytes % 6 % LAB HEMATOLOGY METHOD 09/03/2025 10:33 AM [facility] Eosinophils % 0 % LAB HEMATOLOGY METHOD 09/03/2025 10:33 AM [facility] Basophils % 0 % LAB HEMATOLOGY METHOD 09/03/2025 10:33 AM [facility] Immature Granulocytes % 0 % LAB HEMATOLOGY METHOD 09/03/2025 10:33 AM [facility] Neutrophils Absolute 8.24(H) 1.60 - 6.10 10*3/uL LAB HEMATOLOGY METHOD 09/03/2025 10:33 AM [facility] [facility] Lymphocytes Absolute 0.50(L) 1.20 - 3.90 10*3/uL LAB HEMATOLOGY METHOD 09/03/2025 10:33 AM [facility] Monocytes Absolute 0.58 0.30 - 0.90 10*3/uL LAB HEMATOLOGY METHOD 09/03/2025 10:33 AM [facility] Eosinophils Absolute 0.00 0.00 - 0.50 10*3/uL LAB HEMATOLOGY METHOD 09/03/2025 10:33 AM [facility] Basophils Absolute 0.01 0.00 - 0.10 10*3/uL LAB HEMATOLOGY METHOD 09/03/2025 10:33 AM [facility] Immature Granulocytes Absolute 0.03 0.00 - 0.06 10*3/uL LAB HEMATOLOGY METHOD 09/03/2025 10:33 AM EST [facility] Blood Venous blood specimen / Unknown Venipuncture / Unknown 09/03/2025 8:26 AM EST 09/03/2025 8:29 AM EST Narrative [facility] - 09/03/2025 10:33 AM EST Therapeutic decision making should be based on absolute values, rather than percentages. us Dominick Curtis MD LAB BLOOD ORDERABLES Final R esult [facility] [address] [place] [address] * (ABNORMAL) CMP (09/03/2025 8:26 AM EST) Glucose, Plasma 191(H) 74 - 99 mg/dL 09/03/2025 8:49 AM EST [facility] BUN, Plasma 37(H) 8 - 23 mg/dL 09/03/2025 8:49 AM EST [facility] Creatinine, Plasma 3.17(H) 0.60 - 1.10 mg/dL 09/03/2025 8:49 AM EST [facility] BUN/Creatinine Ratio 12 09/03/2025 8:49 AM EST [facility] Sodium, Plasma 130(L) 136 - 145 mmol/L 09/03/2025 8:49 AM EST [facility] Potassium, Plasma 5.6(H) 3.6 - 4.9 mmol/L 09/03/2025 8:49 AM EST [facility] Chloride, Plasma 98 97 - 107 mmol/L 09/03/2025 8:49 AM EST [facility] CO2, Plasma 25 22 - 29 mmol/L 09/03/2025 8:49 AM EST [facility] Anion Gap 7 6 - 16 mmol/L 09/03/2025 8:49 AM EST [facility] Total Calcium, Plasma 9.0 8.9 - 10.2 mg/dL 09/03/2025 8:49 AM EST [facility] Total Protein 5.8(L) 6.3 - 7.9 g/dL 09/03/2025 8:49 AM EST [facility] Albumin, Plasma 3.7 3.5 - 5.2 g/dL 09/03/2025 8:49 AM EST [facility] AST, Plasma 37(H) 10 - 35 U/L 09/03/2025 8:49 AM EST [facility] ALT, Plasma 15 10 - 35 U/L 09/03/2025 8:49 AM EST [facility] Alkaline Phosphatase, Plasma 47 46 - 142 U/L 09/03/2025 8:49 AM EST [facility] Total Bilirubin, Plasma 0.2 0.2 - 1.1 mg/dL 09/03/2025 8:49 AM EST [facility] eGFRcr 14.0 mL/min/1.7 3m*2 09/03/2025 8:49 AM EST [facility] Comment:Reported eGFRcr in m L/min/1.73m2 is based the CKD-EPI 2020 equation that does not use a race coefficient. Blood Venous blood specimen / Unknown Venipuncture / Unknown 09/03/2025 8:26 AM EST 09/03/2025 8:29 AM EST us Dominick Curtis MD LAB BLOOD ORDERABLES Final R esult [facility] [address] [place] [address] * XR Knee Left 3 Views (09/03/2025 8:10 AM EST) Anatomical Region Laterality Modality Lower Extremities, Knee Left Digital Radiography Impressions 09/03/2025 9:09 AM EST Intertrochanteric left femur fracture as described above. Diffuse osteopenia and degenerative change as described above CRITICAL RESULT: No. COMMUNICATION: Per this written report. Drafted by Rachel Ramhan MD on 09/03/2025 9:03 AM Final report signed by Rachel Rahman MD on 09/03/2025 9:09 AM Narrative 09/03/2025 9:09 AM EST CLINICAL INDICATION: Left femur fracture TECHNIQUE: XR HIP LEFT 2 OR 3 VIEWS, XR FEMUR LEFT 2+ VIEWS, XR KNEE LEFT 3 VIEWS COMPARISON: None. FINDINGS: AP view of the pelvis and 2 views of the left hip demonstrate normal position of the right femoral head within the acetabulum. The left femoral head is rotated due to intratrochanteric fracture of the left femur. The distal portion of the left femur is slightly displaced superiorly and is associated with the rotation of the proximal portion of the femur. The pubic symphysis and SI joints demonstrate degenerative change but are otherwise unremarkable. The sacral arcs have a normal smooth symmetric contour. There is soft tissue hematoma over the lateral aspect of the left hemipelvis. AP and lateral views of the left femur redemonstrate the left intertrochanteric femur fracture as described above. There is diffuse osteopenia. There are vascular calcifications. There is normal position of the patella. There is severe degenerative change at the knee. 3 views of the left knee demonstrate orthopedic hardware with screws extending across the tibial plateau and metal plate and screws along the lateral aspect of the proximal tibia. There is no acute fracture appreciated. Procedure Note Rachel Rahman MD - 09/03/2025 CLINICAL INDICATION: Left femur fracture TECHNIQUE: XR HIP LEFT 2 OR 3 VIEWS, XR FEMUR LEFT 2+ VIEWS, XR KNEE LEFT 3 VIEWS COMPARISON: None. FINDINGS: AP view of the pelvis and 2 views of the left hip demonstrate normalposition of the right femoral head within the acetabulum. The left femoralhead is rotated due to intratrochanteric fracture of the left femur. Thedistal portion of the left femur is slightly displaced superiorly and isassociated with the rotation of the proximal portion of the femur. Thepubic symphysis and SI joints demonstrate degenerative change but areotherwise unremarkable. The sacral arcs have a normal smooth symmetriccontour. There is soft tissue hematoma over the lateral aspect of the lefthemipelvis. AP and lateral views of the left femur redemonstrate the leftintertrochanteric femur fracture as described above. There is diffuseosteopenia. There are vascular calcifications. There is normal position ofthe patella. There is severe degenerative change at the knee. 3 views of the left knee demonstrate orthopedic hardware with screwsextending across the tibial plateau and metal plate and screws along thelateral aspect of the proximal tibia. There is no acute fractureappreciated. IMPRESSION: Intertrochanteric left femur fracture as described above. Diffuse osteopenia and degenerative change as described above CRITICAL RESULT: No. COMMUNICATION: Per this written report. Drafted by Rachel Rahman MD on 09/03/2025 9:03 AM Final report signed by Rachel Rahman MD on 09/03/2025 9:09 AM us Dominick Curtis MD IMG XR PROCEDURES Final Resu lt * XR Femur Left 2+ Views (09/03/2025 8:10 AM EST) Anatomical Region Laterality Modality Lower Extremities, Femur Left Digital Radiography Impressions 09/03/2025 9:09 AM EST Intertrochanteric left femur fracture as described above. Diffuse osteopenia and degenerative change as described above CRITICAL RESULT: No. COMMUNICATION: Per this written report. Drafted by Rachel Rahman MD on 09/03/2025 9:03 AM Final report signed by Rachel Rahman MD on 09/03/2025 9:09 AM Narrative 09/03/2025 9:09 AM EST CLINICAL INDICATION: Left femur fracture TECHNIQUE: XR HIP LEFT 2 OR 3 VIEWS, XR FEMUR LEFT 2+ VIEWS, XR KNEE LEFT 3 VIEWS COMPARISON: None. FINDINGS: AP view of the pelvis and 2 views of the left hip demonstrate normal position of the right femoral head within the acetabulum. The left femoral head is rotated due to intratrochanteric fracture of the left femur. The distal portion of the left femur is slightly displaced superiorly and is associated with the rotation of the proximal portion of the femur. The pubic symphysis and SI joints demonstrate degenerative change but are otherwise unremarkable. The sacral arcs have a normal smooth symmetric contour. There is soft tissue hematoma over the lateral aspect of the left hemipelvis. AP and lateral views of the left femur redemonstrate the left intertrochanteric femur fracture as described above. There is diffuse osteopenia. There are vascular calcifications. There is normal position of the patella. There is severe degenerative change at the knee. 3 views of the left knee demonstrate orthopedic hardware with screws extending across the tibial plateau and metal plate and screws along the lateral aspect of the proximal tibia. There is no acute fracture appreciated. Procedure Note Rachel Rahman MD - 09/03/2025 CLINICAL INDICATION: Left femur fracture TECHNIQUE: XR HIP LEFT 2 OR 3 VIEWS, XR FEMUR LEFT 2+ VIEWS, XR KNEE LEFT 3 VIEWS COMPARISON: None. FINDINGS: AP view of the pelvis and 2 views of the left hip demonstrate normalposition of the right femoral head within the acetabulum. The left femoralhead is rotated due to intratrochanteric fracture of the left femur. Thedistal portion of the left femur is slightly displaced superiorly and isassociated with the rotation of the proximal portion of the femur. Thepubic symphysis and SI joints demonstrate degenerative change but areotherwise unremarkable. The sacral arcs have a normal smooth symmetriccontour. There is soft tissue hematoma over the lateral aspect of the lefthemipelvis. AP and lateral views of the left femur redemonstrate the leftintertrochanteric femur fracture as described above. There is diffuseosteopenia. There are vascular calcifications. There is normal position ofthe patella. There is severe degenerative change at the knee. 3 views of the left knee demonstrate orthopedic hardware with screwsextending across the tibial plateau and metal plate and screws along thelateral aspect of the proximal tibia. There is no acute fractureappreciated. IMPRESSION: Intertrochanteric left femur fracture as described above. Diffuse osteopenia and degenerative change as described above CRITICAL RESULT: No. COMMUNICATION: Per this written report. Drafted by Rachel Rahman MD on 09/03/2025 9:03 AM Final report signed by Rachel Rahman MD on 09/03/2025 9:09 AM us Dominick Curtis MD IMG XR PROCEDURES Final Resu lt * XR Hip Left 2 or 3 Views Including Pelvis (09/03/2025 8:10 AM EST) Anatomical Region Laterality Modality Lower Extremities, Hip Left Digital R adiography Impressions 09/03/2025 9:09 AM EST Intertrochanteric left femur fracture as described above. Diffuse osteopenia and degenerative change as described above CRITICAL RESULT: No. COMMUNICATION: Per this written report. Drafted by Rachel Rahman MD on 09/03/2025 9:03 AM Final report signed by Rachel Rahman MD on 09/03/2025 9:09 AM Narrative 09/03/2025 9:09 AM EST CLINICAL INDICATION: Left femur fracture TECHNIQUE: XR HIP LEFT 2 OR 3 VIEWS, XR FEMUR LEFT 2+ VIEWS, XR KNEE LEFT 3 VIEWS COMPARISON: None. FINDINGS: AP view of the pelvis and 2 views of the left hip demonstrate normal position of the right femoral head within the acetabulum. The left femoral head is rotated due to intratrochanteric fracture of the left femur. The distal portion of the left femur is slightly displaced superiorly and is associated with the rotation of the proximal portion of the femur. The pubic symphysis and SI joints demonstrate degenerative change but are otherwise unremarkable. The sacral arcs have a normal smooth symmetric contour. There is soft tissue hematoma over the lateral aspect of the left hemipelvis. AP and lateral views of the left femur redemonstrate the left intertrochanteric femur fracture as described above. There is diffuse osteopenia. There are vascular calcifications. There is normal position of the patella. There is severe degenerative change at the knee. 3 views of the left knee demonstrate orthopedic hardware with screws extending across the tibial plateau and metal plate and screws along the lateral aspect of the proximal tibia. There is no acute fracture appreciated. Procedure Note Rachel Rahman MD - 09/03/2025 CLINICAL INDICATION: Left femur fracture TECHNIQUE: XR HIP LEFT 2 OR 3 VIEWS, XR FEMUR LEFT 2+ VIEWS, XR KNEE LEFT 3 VIEWS COMPARISON: None. FINDINGS: AP view of the pelvis and 2 views of the left hip demonstrate normalposition of the right femoral head within the acetabulum. The left femoralhead is rotated due to intratrochanteric fracture of the left femur. Thedistal portion of the left femur is slightly displaced superiorly and isassociated with the rotation of the proximal portion of the femur. Thepubic symphysis and SI joints demonstrate degenerative change but areotherwise unremarkable. The sacral arcs have a normal smooth symmetriccontour. There is soft tissue hematoma over the lateral aspect of the lefthemipelvis. AP and lateral views of the left femur redemonstrate the leftintertrochanteric femur fracture as described above. There is diffuseosteopenia. There are vascular calcifications. There is normal position ofthe patella. There is severe degenerative change at the knee. 3 views of the left knee demonstrate orthopedic hardware with screwsextending across the tibial plateau and metal plate and screws along thelateral aspect of the proximal tibia. There is no acute fractureappreciated. IMPRESSION: Intertrochanteric left femur fracture as described above. Diffuse osteopenia and degenerative change as described above CRITICAL RESULT: No. COMMUNICATION: Per this written report. Drafted by Rachel Rahman MD on 09/03/2025 9:03 AM Final report signed by Rachel Rahman MD on 09/03/2025 9:09 AM Dominick Curtis MD IMG XR PROCEDURES Final Resu lt documented in this encounter Visit Diagnoses Diagnosis Displaced intertrochanteric fracture of left femur, initial encounter for closed fracture- Primary Displaced intertrochanteric fracture of left femur, initial encounter for closed fracture Closed displaced intertrochanteric fracture of left femur, initial encounter ASHLEY (acute kidney injury) Fall, initial encounter Hyperkalemia Hyperpotassemia Anemia, unspecified type Age-related osteoporosis with current pathological fracture, initial encounter Osteoporosis with current pathological fracture documented in this encounter Admitting Diagnoses Diagnosis Displaced intertrochanteric fracture of left femur, initial encounter for closed fracture documented in this encounter Administered Medications Inactive Administered Medications - up to 3 most recent administrations Medication Order MAR Action Action Date Dose Rate Site acetaminophen (Tylenol) tablet 1,000 mg 1,000 mg, Oral, Once, 1 dose, On Wed09/04/25 at 1300, Routine, Recovery (Phase I only) Given 09/04/2025 1:45 PM EST 1,000 mg acetaminophen (Tylenol) tablet 650 mg 650 mg, Oral, Every 8 hours, First dose on Wed09/03/25 at 1140, Until Discontinued, Routine Given 09/07/2025 5:08 AM EST 650 mg Given 09/06/2025 9:03 PM EST 650 mg Given 09/06/2025 1:23 PM EST 650 mg albuterol (Proventil) (2.5 MG/3ML) 0.083% nebulizer solution 10 mg 10 mg, Nebulization, Once, 1 dose, On Wed09/03/25 at 1455, Routine Given 09/03/2025 3:00 PM EST 10 mg aspirin chewable tablet 81 mg 81 mg, Oral, Daily, First dose on Wed09/03/25 at 1455, Until Discontinued, Routine Given 09/07/2025 8:43 AM EST 81 mg Given 09/06/2025 8:37 AM EST 81 mg Given 09/05/2025 8:08 AM EST 81 mg atorvastatin (Lipitor) tablet 80 mg 80 mg, Oral, Nightly, First dose on Wed09/03/25 at 2100, Until Discontinued Given 09/06/2025 9:03 PM EST 80 mg Given 09/05/2025 9:41 PM EST 80 mg Given 09/04/2025 9:30 PM EST 80 mg bisacodyl (Dulcolax) suppository 10 mg 10 mg, Rectal, Once, 1 dose, On Wed09/06/25 at 0815, Routine Given 09/06/2025 8:37 AM EST 10 mg bisacodyl (Dulcolax) suppository 10 mg 10 mg, Rectal, Daily PRN, Starting on Wed09/06/25 at 1628, Until Wed09/07/25 at 1337, Routine, constipation Given 09/06/2025 5:26 PM EST 10 mg carvedilol (Coreg) tablet 12.5 mg 12.5 mg, Oral, 2 times daily, First dose (after last modification) on Wed09/04/25 at 0730, Until Discontinued, Routine Given 09/06/2025 9:05 PM EST 12.5 mg Given 09/06/2025 8:37 AM EST 12.5 mg Given 09/05/2025 9:42 PM EST 12.5 mg ceFAZolin (Ancef) injection 2 g 2 g, Intravenous, Every 8 hours, 3 doses, First dose (after last modification) on Wed09/04/25 at 1900, Last dose on Wed09/05/25 at 1300, Routine, Recovery(Phase II-Outpatient)/On Unit(Inpatient) Given 09/05/2025 12:42 PM EST 2 g Given 09/05/2025 5:39 AM EST 2 g Given 09/04/2025 9:30 PM EST 2 g cholecalciferol (Vitamin D-3) tablet 2,000 Units 2,000 Units, Oral, Daily, First dose on Wed09/05/25 at 1100, Until Discontinued, Routine Given 09/07/2025 8:43 AM EST 2,000 Units Given 09/06/2025 8:37 AM EST 2,000 Units Given 09/05/2025 12:42 PM EST 2,000 Units cyanocobalamin (Vitamin B-12) tablet 1,000 mcg 1,000 mcg, Oral, Daily, First dose on Wed09/03/25 at 1455, Until Discontinued, Routine Given 09/07/2025 8:43 AM EST 1,000 mcg Given 09/06/2025 8:38 AM EST 1,000 mcg Given 09/05/2025 8:06 AM EST 1,000 mcg dextrose 10 % (D10W) bolus 125 mL 125 mL, Intravenous, Every 15 min PRN, Starting on Wed09/03/25 at 1132, Until Wed09/07/25 at 1337, Administer over 15 Minutes, Routine, low blood sugar BG 51-89 mg/dL New Bag 09/05/2025 9:50 AM EST 125 mL 500 mL/hr New Bag 09/04/2025 6:04 AM EST 125 mL 500 mL/hr dextrose 10 % (D10W) bolus 250 mL 250 mL, Intravenous, Every 15 min PRN, Starting on Wed09/03/25 at 1132, Until Wed09/07/25 at 1337, Administer over 15 Minutes, Routine, PRN low blood sugar BG =/<50 mg/dL dextrose 10 % (D10W) bolus 250 mL 250 mL (25 g), Intravenous, Once, 1 dose, On Wed09/03/25 at 1455, Administer over 30 Minutes, Routine New Bag 09/03/2025 3:45 PM EST 250 mL 500 mL/hr dextrose 10 % (D10W) bolus 250 mL 250 mL (25 g), Intravenous, Once, 1 dose, On Wed09/04/25 at 0315, Administer over 30 Minutes, Routine New Bag 09/04/2025 3:20 AM EST 250 mL 500 mL/hr Right Forearm dextrose 10 % (D10W) bolus 250 mL 250 mL (25 g), Intravenous, Once, 1 dose, On Wed09/05/25 at 0845, Administer over 30 Minutes, Routine New Bag 09/05/2025 8:12 AM EST 250 mL 500 mL/hr escitalopram (Lexapro) tablet 10 mg 10 mg, Oral, Daily, First dose on Wed09/04/25 at 0900, Until Discontinued, Routine Given 09/07/2025 8:43 AM EST 10 mg Given 09/06/2025 8:37 AM EST 10 mg Given 09/05/2025 8:06 AM EST 10 mg folic acid (Folvite) tablet 1 mg 1 mg, Oral, Daily, 7 doses, First dose (after last modification) on Wed09/07/25 at 0900, Last dose on Wed09/13/25 at 0900, Routine Given 09/07/2025 8:45 AM EST 1 mg glucagon (human recombinant) injection 1 mg 1 mg, Intramuscular, Every 15 min PRN, Starting on Wed09/03/25 at 1132, Until Wed09/07/25 at 1337, Routine, low blood sugar per Hypoglycemia Prevention and Treatment protocol glucose (Glutose) 40 % oral gel 15-30 grams of glucose 15-30 grams of glucose, Sublingual, Every 15 min PRN, Starting on Wed09/03/25 at 1132, Until Wed09/07/25 at 1337, Routine, low blood sugar, per Hypoglycemia Prevention and Treatment protocol heparin (porcine) injection 5,000 Units 5,000 Units, Subcutaneous, Every 8 hours scheduled, First dose on Wed09/03/25 at 1440, Until Discontinued, Routine Given 09/03/2025 3:40 PM EST 5,000 Units Left Lower Abdomen heparin (porcine) injection 5,000 Units 5,000 Units, Subcutaneous, Every 8 hours scheduled, First dose on Wed09/04/25 at 1300, Until Discontinued, Routine, Recovery(Phase II-Outpatient)/On Unit(Inpatient) Given 09/06/2025 9:04 PM EST 5,000 Units Left Upper Arm (Back ) Given 09/06/2025 1:23 PM EST 5,000 Units L eft Lower Abdomen Given 09/06/2025 6:24 AM EST 5,000 Units L eft Upper Arm (Back) HYDROmorphone (Dilaudid) injection 0.25 mg 0.25 mg, Intravenous, Once, 1 dose, On Wed09/03/25 at 1050, Routine, Sign Given 09/03/2025 10:49 AM EST 0.25 mg insulin regular (HumuLIN R,NovoLIN R) 100 UNIT/ML injection 5 Units 5 Units, Intravenous, Once, 1 dose, On Wed09/03/25 at 1455, RoutineIndications:Hyperkalemia Given 09/03/2025 3:46 PM EST 5 Units insulin regular (HumuLIN R,NovoLIN R) 100 UNIT/ML injection 5 Units 5 Units, Intravenous, Once, 1 dose, On Wed09/04/25 at 0315, RoutineIndications:Hyperkalemia Given 09/04/2025 3:20 AM EST 5 Units insulin regular (HumuLIN R,NovoLIN R) 100 UNIT/ML injection 5 Units 5 Units, Intravenous, Once, 1 dose, On Wed09/05/25 at 0845, RoutineIndications:Hyperkalemia Given 09/05/2025 8:06 AM EST 5 Units Matthew powder 1 packet 1 packet, Oral, 2 times daily, First dose on Wed09/04/25 at 1300, Until Discontinued, Routine, Recovery(Phase II-Outpatient)/On Unit(Inpatient) Given 09/07/2025 8:46 AM EST 1 packet Given 09/06/2025 9:04 PM EST 1 packet Given 09/06/2025 8:42 AM EST 1 packet lactated Ringer's infusion 1,000 mL 1,000 mL, Intravenous, Once (Bolus), 1 dose, On Wed09/03/25 at 0955, STAT New Bag 09/03/2025 9:57 AM EST 1,000 mL lactated Ringer's infusion 20 mL/hr, Intravenous, Once, 1 dose, On Wed09/04/25 at 1300, Routine New Bag 09/04/2025 1:48 PM EST 20 mL/hr 20 mL/hr levothyroxine (Synthroid, Levoxyl) tablet 112 mcg 112 mcg, Oral, Daily, First dose on Wed09/04/25 at 0900, Until Discontinued, Routine Given 09/07/2025 8:43 AM EST 112 mcg Given 09/06/2025 8:38 AM EST 112 mcg Given 09/05/2025 8:05 AM EST 112 mcg magnesium hydroxide (Milk of Magnesia) 400 MG/5ML suspension 30 mL 30 mL, Oral, Daily PRN, Starting on Wed09/06/25 at 1628, Until Wed09/07/25 at 1337, Routine, constipation Given 09/06/2025 5:26 PM EST 30 mL melatonin tablet 6 mg 6 mg, Oral, Nightly, First dose on Wed09/06/25 at 2115, Until Discontinued, Routine Given 09/06/2025 9:03 PM EST 6 mg memantine (Namenda) tablet 5 mg 5 mg, Oral, 2 times daily, First dose on Wed09/03/25 at 1455, Until Discontinued, Routine Given 09/07/2025 8:43 AM EST 5 mg Given 09/06/2025 9:03 PM EST 5 mg Given 09/06/2025 8:38 AM EST 5 mg morphine PF 4 mg 4 mg, Intravenous, Once, 1 dose, On Wed09/03/25 at 0735, STAT Given 09/03/2025 8:14 AM EST 4 mg mupirocin (Bactroban) 2 % ointment 1 Application Each Nostril, 2 times daily, 10 doses, First dose on Tu09/04/25 at 0900, Last dose on 09/08/25 at 2100, 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 Given 09/07/2025 8:43 AM EST 1 Applicatio n Given 09/06/2025 9:05 PM EST 1 Application Given 09/06/2025 8:37 AM EST 1 Application omega-3 (Fish Oil) capsule 1,000 mg 1,000 mg, Oral, Daily, First dose on Wed09/03/25 at 1455, Until Discontinued, Routine Given 09/07/2025 8:46 AM EST 1,000 mg Given 09/06/2025 8:42 AM EST 1,000 mg Given 09/05/2025 8:19 AM EST 1,000 mg ondansetron (Zofran) 4 MG/5ML solution 4 mg 4 mg, Oral, Every 6 hours PRN, Starting on Wed09/03/25 at 1133, Until Wed09/07/25 at 1337, Routine, nausea, vomiting ondansetron (Zofran) injection 4 mg 4 mg, Intravenous, Every 6 hours PRN, Starting on Wed09/03/25 at 1133, Until Wed09/07/25 at 1337, Routine, vomiting, nausea ondansetron ODT (Zofran-ODT) disintegrating tablet 4 mg 4 mg, Oral, Every 6 hours PRN, Starting on Wed09/03/25 at 1133, Until Wed09/07/25 at 1337, Routine, nausea, vomiting polyethylene glycol (Miralax) packet 17 g 17 g, Oral, Daily, First dose on Wed09/03/25 at 1140, Until Discontinued, Routine Given 09/06/2025 8:59 AM EST 17 g Given 09/05/2025 8:06 AM EST 17 g polyethylene glycol (Miralax) packet 17 g 17 g, Oral, 2 times daily, First dose (after last modification) on [place] 09/06/25 at 2100, Until Discontinued, Routine Given 09/06/2025 9:02 PM EST 17 g Povidone-Iodine 5 % swab solution 1 Application Nasal, Once, 1 dose, On Wed09/04/25 at 1030, Routine Given 09/04/2025 10:00 AM EST 1 Application senna (Senokot) tablet 17.2 mg 17.2 mg (2 tablet), Oral, Nightly, First dose on Wed09/03/25 at 2100, Until Discontinued, Routine Given 09/05/2025 9:52 PM EST 17.2 mg Given 09/04/2025 9:30 PM EST 17.2 mg Given 09/03/2025 8:02 PM EST 17.2 mg senna (Senokot) tablet 17.2 mg 17.2 mg (2 tablet), Oral, 2 times daily, First dose (after last modification) on [facility] 09/06/25 at 2100, Until Discontinued, Routine Given 09/06/2025 9:04 PM EST 17.2 mg sodium chloride 0.9 % bolus 500 mL 500 mL, Intravenous, Once, 1 dose, On Wed09/05/25 at 0845, Administer over 15 Minutes, Routine New Bag 09/05/2025 8:14 AM EST 500 mL 2000 mL/hr sodium chloride 0.9 % bolus 500 mL 500 mL, Intravenous, Once, 1 dose, On [facility] 09/06/25 at 0915, Administer over 15 Minutes, Routine New Bag 09/06/2025 9:03 AM EST 500 mL 2000 mL/hr sodium chloride 0.9 % bolus 500 mL 500 mL, Intravenous, Once, 1 dose, On Wed09/06/25 at 1715, Administer over 15 Minutes, Routine New Bag 09/06/2025 5:26 PM EST 500 mL 2000 mL/hr sodium chloride 0.9 % flush 10 mL 10 mL, Intravenous, Every 12 hours, First dose on Wed09/03/25 at 1140, Until Discontinued, Routine Given 09/07/2025 12:00 AM EST 10 mL Given 09/05/2025 11:40 PM EST 10 mL Given 09/04/2025 11:10 PM EST 10 mL sodium chloride 0.9 % flush 10 mL 10 mL, Intravenous, As needed, Starting on Wed09/03/25 at 1128, Until Wed09/07/25 at 1337, Routine, line care sodium zirconium cyclosilicate (Lokelma) packet 10 g 10 g, Oral, 3 times daily, 6 doses, First dose on Wed09/05/25 at 0900, Last dose on Wed09/06/25 at 2100, Routine Given 09/06/2025 9:02 PM EST 10 g Given 09/06/2025 3:24 PM EST 10 g Given 09/06/2025 8:59 AM EST 10 g sodium zirconium cyclosilicate (Lokelma) packet 10 g 10 g, Oral, Daily, First dose on Wed09/07/25 at 0900, Until Discontinued, Routine Given 09/07/2025 8:42 AM EST 10 g tranexamic acid (Cyklokapron) IVPB 1,000 mg 1,000 mg, Intravenous, Once, 1 dose, On Wed09/03/25 at 1025, Routine, SignIndications:Femur Fracture,Femur Fracture New Bag 09/03/2025 10:53 AM EST 1,000 mg 600 mL /hr documented in this encounter Active and Recently Administered Medications Times are shown in EST. Scheduled Medication Order 09/05/2025 09/06/2025 09/07/2025 acetaminophen (Tylenol) tablet 650 mg 650 mg, Oral, Every 8 hours, First dose on Wed09/03/25 at 1140, Until Discontinued, Routine 0539 (Given - Provider: Damaris Cunningham RN)1242 (Given - Provider: Halley Jaimes, FILIBERTO)2141 (Given - Provider: Sparkle Guerrero RN - Comment: pt asleep and did not want to be wake up.) 0623 (Given - Provider: Sparkle Guerrero, FILIBERTO)1323 (Given - Provider: Halley Jaimes, RN)2103 (Given - Provider: Sparkle Guerrero, FILIBERTO) 0508 (Given - Provider: Sparkle Guerrero RN) aspirin chewable tablet 81 mg 81 mg, Oral, Daily, First dose on Wed09/03/25 at 1455, Until Discontinued, Routine 0808 (Given - Provider: Halley Jaimes RN) 0837 (Given - Provider: Halley Jaimes RN) 0843 (Given - Provider: Marley Almonte, FILIBERTO) atorvastatin (Lipitor) tablet 80 mg 80 mg, Oral, Nightly, First dose on Wed09/03/25 at 2100, Until Discontinued 2140 (Given - Provider: Sparkle Guerrero RN) 2102 (Given - Provider: Sparkle Guerrero RN) bisacodyl (Dulcolax) suppository 10 mg (COMPLETED) 10 mg, Rectal, Once, 1 dose, On Rabia 09/06/25 at 0815, Routine 0837 (Given - Provider: Halley Jaimes RN) carvedilol (Coreg) tablet 12.5 mg 12.5 mg, Oral, 2 times daily, First dose (after last modification) on Wed09/04/25 at 0730, Until Discontinued, Routine 08 (Given - Provider: Halley Jaimes RN)2141 (Given - Provider: Sparkle Guerrero RN) 08 (Given - Provider: Halley Jaimes RN)2104 (Given - Provider: Sparkle Guerrero RN) 0843 (Not Given - Provider: Marley Almonte RN - Reason: Order parameters not met) ceFAZolin (Ancef) injection 2 g (COMPLETED) 2 g, Intravenous, Every 8 hours, 3 doses, First dose (after last modification) on Wed09/04/25 at 1900, Last dose on Wed09/05/25 at 1300, Routine, Recovery(Phase II-Outpatient)/On Unit(Inpatient) 0539 (Given - Provider: Damaris Cunningham RN)1242 (Given - Provider: Halley Jaimes RN) cholecalciferol (Vitamin D-3) tablet 2,000 Units 2,000 Units, Oral, Daily, First dose on Wed09/05/25 at 1100, Until Discontinued, Routine 1242 (Given - Provider: Halley Jaimes RN) 0837 (Given - Provider: Halley Jaimes RN) 0843 (Given - Provider: Marley L Preski, RN) cyanocobalamin (Vitamin B-12) tablet 1,000 mcg 1,000 mcg, Oral, Daily, First dose on Wed09/03/25 at 1455, Until Discontinued, Routine 0806 (Given - Provider: Halley Jaimes RN) 0838 (Given - Provider: Halley Jaimes RN) 0843 (Given - Provider: Marley Almonte, FIILBERTO) dextrose 10 % (D10W) bolus 250 mL (COMPLETED) 250 mL (25 g), Intravenous, Once, 1 dose, On Wed09/05/25 at 0845, Administer over 30 Minutes, Routine 0812 (New Bag - Provider: Halley Jaimes RN) escitalopram (Lexapro) tablet 10 mg 10 mg, Oral, Daily, First dose on Wed09/04/25 at 0900, Until Discontinued, Routine 0806 (Given - Provider: Halley Jaimes RN) 0837 (Given - Provider: Halley Jaimes RN) 0843 (Given - Provider: Marley Almonte RN) folic acid (Folvite) tablet 1 mg 1 mg, Oral, Daily, 7 doses, First dose (after last modification) on Wed09/07/25 at 0900, Last dose on Wed09/13/25 at 0900, Routine 0845 (Given - Provider: Marley Almonte RN) heparin (porcine) injection 5,000 Units 5,000 Units, Subcutaneous, Every 8 hours scheduled, First dose on Wed09/04/25 at 1300, Until Discontinued, Routine, Recovery(Phase II-Outpatient)/On Unit(Inpatient) 0539 (Given - Provider: Damaris Cunningham RN)1523 (Given - Provider: Halley Jaimes, FILIBERTO)2148 (Given - Provider: Sparkle Guerrero, FILIBERTO) 0624 (Given - Provider: Sparkle Guerrero, RN)1323 (Given - Provider: Halley Jaimes RN)2104 (Given - Provider: Sparkle Guerrero, FILIBERTO) 0511 (Not Given - Provider: Sparkle Guerrero, FILIBERTO - Reason: Patient/Family/Represe ntative Refused - Comment: MD notified.) insulin regular (HumuLIN R,NovoLIN R) 100 UNIT/ML injection 5 Units (COMPLETED) 5 Units, Intravenous, Once, 1 dose, On Wed09/05/25 at 0845, Routine 08 (Given - Provider: Halley Jaimes RN) Matthew powder 1 packet 1 packet, Oral, 2 times daily, First dose on Wed09/04/25 at 1300, Until Discontinued, Routine, Recovery(Phase II-Outpatient)/On Unit(Inpatient) 0819 (Given - Provider: Halley Jaimes RN)2152 (Given - Provider: Sparkle Guerrero RN) 08 (Given - Provider: Halley Jaimes RN)2103 (Given - Provider: Sparkle Guerrero RN) 0846 (Given - Provider: Marley Almonte, FILIBERTO) levothyroxine (Synthroid, Levoxyl) tablet 112 mcg 112 mcg, Oral, Daily, First dose on Wed09/04/25 at 0900, Until Discontinued, Routine 08 (Given - Provider: Halley Jaimes RN) 08 (Given - Provider: Halley Jaimes RN) 0843 (Given - Provider: Marley Almonte RN) melatonin tablet 6 mg 6 mg, Oral, Nightly, First dose on Wed09/06/25 at 2115, Until Discontinued, Routine 2102 (Given - Provider: Sparkle Guerrero RN) memantine (Namenda) tablet 5 mg 5 mg, Oral, 2 times daily, First dose on Wed09/03/25 at 1455, Until Discontinued, Routine 0819 (Given - Provider: Halley Jaimes RN)2139 (Given - Provider: Sparkle Guerrero RN) 08 (Given - Provider: Halley Jaimes RN)2102 (Given - Provider: Sparkle Guerrero RN) 0843 (Given - Provider: Marley Almonte RN) mupirocin (Bactroban) 2 % ointment 1 Application Each Nostril, 2 times daily, 10 doses, First dose on Wed09/04/25 at 0900, Last dose on Wed09/08/25 at 2100, Routine 0805 (Given - Provider: Halley Jaimes RN)214 (Given - Provider: Sparkle Gurerero RN) 0837 (Given - Provider: Halley Jaimes RN)2104 (Given - Provider: Sparkle Guerrero RN) 0843 (Given - Provider: Marley Almonte RN) omega-3 (Fish Oil) capsule 1,000 mg 1,000 mg, Oral, Daily, First dose on Wed09/03/25 at 1455, Until Discontinued, Routine 0819 (Given - Provider: Halley Jaimes RN) 0842 (Given - Provider: Halley Jaimes RN) 0846 (Given - Provider: Marley Almonte RN) polyethylene glycol (Miralax) packet 17 g (CANCELED) 17 g, Oral, Daily, First dose on Wed09/03/25 at 1140, Until Discontinued, Routine 08 (Given - Provider: Halley Jaimes RN) 0859 (Given - Provider: Halley Jaimes RN) polyethylene glycol (Miralax) packet 17 g 17 g, Oral, 2 times daily, First dose (after last modification) on Wed09/06/25 at 2100, Until Discontinued, Routine 2101 (Given - Provider: Sparkle Guerrero RN) 0846 (Not Given - Provider: Marley Almonte RN - Reason: Patient/Family/Represe ntative Refused) senna (Senokot) tablet 17.2 mg (CANCELED) 17.2 mg (2 tablet), Oral, Nightly, First dose on Wed09/03/25 at 2100, Until Discontinued, Routine 2151 (Given - Provider: Sparkle Guerrero RN) senna (Senokot) tablet 17.2 mg 17.2 mg (2 tablet), Oral, 2 times daily, First dose (after last modification) on Wed09/06/25 at 2100, Until Discontinued, Routine 2103 (Given - Provider: Sparkle Guerrero RN) 0847 (Not Given - Provider: Marley Almonte RN - Reason: Patient/Family/Represe ntative Refused) sodium chloride 0.9 % bolus 500 mL (COMPLETED) 500 mL, Intravenous, Once, 1 dose, On Wed09/05/25 at 0845, Administer over 15 Minutes, Routine 0814 (New Bag - Provider: Halley Jaimes RN) sodium chloride 0.9 % bolus 500 mL (COMPLETED) 500 mL, Intravenous, Once, 1 dose, On Wed09/06/25 at 0915, Administer over 15 Minutes, Routine 0903 (New Bag - Provider: Halley Jaimes RN) sodium chloride 0.9 % bolus 500 mL (COMPLETED) 500 mL, Intravenous, Once, 1 dose, On Wed09/06/25 at 1715, Administer over 15 Minutes, Routine 1726 (New Bag - Provider: Halley Jaimes RN) sodium chloride 0.9 % flush 10 mL(Linked Group 1) 10 mL, Intravenous, Every 12 hours, First dose on Wed09/03/25 at 1140, Until Discontinued, Routine 1134 (Canceled Entry - Provider: Halley Jaimes RN)2340 (Given - Provider: Sparkle Guerrero RN) 1140 (Canceled Entry - Provider: Halley Jaimes RN) 0000 (Given - Provider: Sparkle Guerrero RN)1140 (Canceled Entry - Provider: Automatic Discharge Provider - Comment: Automatically canceled at discontinue of medication order) sodium zirconium cyclosilicate (Lokelma) packet 10 g (COMPLETED)(Linked Group 2) 10 g, Oral, 3 times daily, 6 doses, First dose on Wed09/05/25 at 0900, Last dose on Wed09/06/25 at 2100, Routine 0805 (Given - Provider: Halley Jaimes RN)1523 (Given - Provider: Halley Jaimes RN)2341 (Given - Provider: Sparkle Guerrero RN) 0859 (Given - Provider: Halley Jaimes RN)1524 (Given - Provider: Halley Jaimes, FILIBERTO)2102 (Given - Provider: Sparkle Guerrero, FILIBERTO) sodium zirconium cyclosilicate (Lokelma) packet 10 g(Linked Group 2) 10 g, Oral, Daily, First dose on Wed09/07/25 at 0900, Until Discontinued, Routine 0842 (Given - Provider: Marley Almonte RN) PRN Medication Order 09/05/2025 09/06/2025 09/07/2025 bisacodyl (Dulcolax) suppository 10 mg 10 mg, Rectal, Daily PRN, Starting on Rabia 09/06/25 at 1628, Until Wed09/07/25 at 1337, Routine, constipation 1726 (Given - Provider: Halley Jaimse RN) busPIRone (Buspar) tablet 5 mg 5 mg, Oral, 2 times daily PRN, Starting on Wed09/03/25 at 1451, Until Wed09/07/25 at 1337, Routine, anxiety dextrose 10 % (D10W) bolus 125 mL(Linked Group 3) 125 mL, Intravenous, Every 15 min PRN, Starting on Wed09/03/25 at 1132, Until Wed09/07/25 at 1337, Administer over 15 Minutes, Routine, low blood sugar BG 51-89 mg/dL 0950 (New Bag - Provider: Halley Jaimes, RN) dextrose 10 % (D10W) bolus 250 mL(Linked Group 3) 250 mL, Intravenous, Every 15 min PRN, Starting on Wed09/03/25 at 1132, Until Wed09/07/25 at 1337, Administer over 15 Minutes, Routine, PRN low blood sugar BG =/<50 mg/dL 0950 (See Alternative - Provider: Halley Jaimes, FILIBERTO) glucagon (human recombinant) injection 1 mg(Linked Group 3) 1 mg, Intramuscular, Every 15 min PRN, Starting on Wed09/03/25 at 1132, Until Wed09/07/25 at 1337, Routine, low blood sugar per Hypoglycemia Prevention and Treatment protocol 0950 (See Alternative - Provider: Halley Jaimes, FILIBERTO) glucose (Glutose) 40 % oral gel 15-30 grams of glucose(Linked Group 3) 15-30 grams of glucose, Sublingual, Every 15 min PRN, Starting on Wed09/03/25 at 1132, Until Wed09/07/25 at 1337, Routine, low blood sugar, per Hypoglycemia Prevention and Treatment protocol 0950 (See Alternative - Provider: Halley Jaimes, FILIBERTO) magnesium hydroxide (Milk of Magnesia) 400 MG/5ML suspension 30 mL 30 mL, Oral, Daily PRN, Starting on Rabia 09/06/25 at 1628, Until Wed09/07/25 at 1337, Routine, constipation 1726 (Given - Provider: Halley Jaimes, FILIBERTO) ondansetron (Zofran) 4 MG/5ML solution 4 mg(Linked Group 4) 4 mg, Oral, Every 6 hours PRN, Starting on Wed09/03/25 at 1133, Until Wed09/07/25 at 1337, Routine, nausea, vomiting ondansetron (Zofran) injection 4 mg(Linked Group 4) 4 mg, Intravenous, Every 6 hours PRN, Starting on Wed09/03/25 at 1133, Until Wed09/07/25 at 1337, Routine, vomiting, nausea ondansetron ODT (Zofran-ODT) disintegrating tablet 4 mg(Linked Group 4) 4 mg, Oral, Every 6 hours PRN, Starting on Wed09/03/25 at 1133, Until Wed09/07/25 at 1337, Routine, nausea, vomiting sodium chloride 0.9 % flush 10 mL(Linked Group 1) 10 mL, Intravenous, As needed, Starting on Wed09/03/25 at 1128, Until Wed09/07/25 at 1337, Routine, line care Linked Groups Order Group 1: Insert peripheral IV (CANCELED) Once, On Wed09/03/25 at 1129, For 1 occurrence And Saline lock IV (CANCELED) Once, On Wed09/03/25 at 1129, For 1 occurrence And sodium chloride 0.9 % flush 10 mLJump to med 10 mL, Intravenous, Every 12 hours, First dose on Wed09/03/25 at 1140, Until Discontinued, Routine And sodium chloride 0.9 % flush 10 mLJump to med 10 mL, Intravenous, As needed, Starting on Wed09/03/25 at 1128, Until Wed09/07/25 at 1337, Routine, line care Group 2: sodium zirconium cyclosilicate (Lokelma) packet 10 g (COMPLETED)Jump to med 10 g, Oral, 3 times daily, 6 doses, First dose on Wed09/05/25 at 0900, Last dose on Wed09/06/25 at 2100, Routine Followed by sodium zirconium cyclosilicate (Lokelma) packet 10 gJump to med 10 g, Oral, Daily, First dose on Wed09/07/25 at 0900, Until Discontinued, Routine Group 3: glucose (Glutose) 40 % oral gel 15-30 grams of glucoseJump to med 15-30 grams of glucose, Sublingual, Every 15 min PRN, Starting on Wed09/03/25 at 1132, Until Wed09/07/25 at 1337, Routine, low blood sugar, per Hypoglycemia Prevention and Treatment protocol Or dextrose 10 % (D10W) bolus 125 mLJump to med 125 mL, Intravenous, Every 15 min PRN, Starting on Wed09/03/25 at 1132, Until Wed09/07/25 at 1337, Administer over 15 Minutes, Routine, low blood sugar BG 51-89 mg/dL Or dextrose 10 % (D10W) bolus 250 mLJump to med 250 mL, Intravenous, Every 15 min PRN, Starting on Wed09/03/25 at 1132, Until Wed09/07/25 at 1337, Administer over 15 Minutes, Routine, PRN low blood sugar BG =/<50 mg/dL Or glucagon (human recombinant) injection 1 mgJump to med 1 mg, Intramuscular, Every 15 min PRN, Starting on Wed09/03/25 at 1132, Until Wed09/07/25 at 1337, Routine, low blood sugar per Hypoglycemia Prevention and Treatment protocol Group 4: ondansetron ODT (Zofran-ODT) disintegrating tablet 4 mgJump to med 4 mg, Oral, Every 6 hours PRN, Starting on Wed09/03/25 at 1133, Until Wed09/07/25 at 1337, Routine, nausea, vomiting Or ondansetron (Zofran) injection 4 mgJump to med 4 mg, Intravenous, Every 6 hours PRN, Starting on Wed09/03/25 at 1133, Until Wed09/07/25 at 1337, Routine, vomiting, nausea Or ondansetron (Zofran) 4 MG/5ML solution 4 mgJump to med 4 mg, Oral, Every 6 hours PRN, Starting on Wed09/03/25 at 1133, Until Wed09/07/25 at 1337, Routine, nausea, vomiting documented in this encounter Additional Health Concerns Assessment Noted Time A fall risk assessment has been complete d for the patient 02/01/2024 1:15 PM EDT A Body Mass Index follow-up plan has been documented for the patient 09/07/2025 11:15 AM EST documented as of this encounter Care Teams Spooler Operator Automatic Relationship Specialty Start Date End Date Srinivasan Smith MD [address] [place] [id number] PCP - General Internal Medicine 01/20/22 Pita Martinez MD [address] [place] [id number] Referring Physician Interventional Cardiology 12/23/21 documented as of this encounter
--- OUTSIDE RECORDS SUMMARY | 2025-09-03 12:12 | XMS_ITS | Encounter Summary ---
Author Organization Healthcare Address [address] [id number] Care Team Providers Care Air Pollution Control Engineer Name Role Phone Pita Martinez MD Unavailable [phone] Srinivasan Smith MD Primary Care Provider [phone] Reason for Visit * Auth/Cert (Routine) Specialty Diagnoses / Procedures Referred By Contac t Referred To Contact Diagnoses Displaced intertrochanteric fracture of left femur, initial encounter for closed fracture fall - left hip fx Julia Spangler, DO [address] [place] [address] Phone: tel: fax: [facility] P[facility] 9 T2 UNI [address] [place] [address] Phone: tel: Referral ID Status Reason Start Date Expiration Date Visits Re quested Visits Authorized [id number] 1 1 Encounter Details Date Type Department Care Team (Late st Contact Info) Description 09/03/2025 12:12 PM EST Anesthesia Event [facility] [address] [place] [phone] [facility] [place] [address] [place] [address] Anesthesia Record Procedure Summary Procedure Name Responsible Anesthesiologist Anesthesia Start Time Anesthesia Stop Time Nerve Block Events No events on file. Meds Name Total 0.5% ropivacaine 25 mL lidocaine PF (Xylocaine) 2 % injection 3 mL * Agents No agents on file. * Blood No blood administrations on file. Lines, Drains, and Airways Type Details Placement Removal Wound 09/04/25; N; Yes; Aparicio rgical; Leg; Anterior, Left, Proximal, Upper 09/04/25 0000 by Leny Peraza RN documented in this encounter Social History Tobacco Use Types Packs/Day Years Used Date Smoking Tobacco: Former Cigarettes 0.3 30 1 1994 Passive Smoke Exposure: Past Smokeless Tobacco: [...] and Family Not on file 09/05/2025 Attends [employer] Not on file 09/05 Active Member [...] any time in the past 12 m ont, were you homeless or living in a jail (including now)? No 09/05/2025 [facility] Utilities Answer Date Recorded In the past 12 months has th e [place], gas, oil, or water company threatened to [...] drink first t rei in the morning (EYE-COPYMAN) to steady your nerves or to get rid of a hangover? 0 09/03/2025 CAGE Questionnaire Score 0 025 Comments No Sex and Gender Information Value Date Recorded Sex Assigned at Female 11/12/2021 2:47 PM EST Legal Sex Female 7:27 PM EDT Gender Identity Female 11/12/2021 2:47 PM EST Sexual Orientation Not on file documented as of this encounter Functional Status * Question Answer Date of Assessment Author Precautions Fall risk 09/04/2025 1:00 AM EST Tamiko Crain CNA * Calculated C-SSRS Risk Score (Lifetime/Recent) Answer Date of Assessment Author No Risk Indicated 09/03/2025 8:00 PM Damaris Hood RN * Question Answer Date of Assessment Author 1. Wish to be (Past 1 Month) No 09/03/2025 8:00 PM Damaris Jones RN 2. Non-Specific Active Suici colton Thoughts (Past 1 Month) No 09/03/2025 8:00 PM Richi Jones RN 6. Suicidal Behavior (Lifetime) No 8:00 PM Damaris Jones RN documented as of this encounter Mental Status * Question Answer Entry Date Author Precautions Fall risk 09/04/2025 1:00 AM Tamiko Arriaza CNA documented in this encounter Miscellaneous Notes * Anesthesia Procedure Notes - Heath [place] MD - 09/03/2025 12:17 PM ESTAssociated Order(s): Peripheral Block Peripheral Block Patient location during procedure: post-op Start time: 09/03/2025 11:55 AM Staffing Performed: Resident Anesthesiologist: Stephane Enamorado MD Resident: Heath [facility] MD Preanesthetic Checklist Completed: patient identified, IV checked, site marked, risks and benefits discussed, surgical consent, monitors and equipment checked, pre-op evaluation and timeout performed Peripheral Block Patient position: supine Prep: ChloraPrep Patient monitoring: heart rate, monitoring and evaluation advisor and continuous pulse ox Block type: fascia iliaca Laterality: left Injection technique: single-shot Guidance: ultrasound guided Local infiltration: lidocaine Ultrasound used for needle placement AND ultrasound image retained Assessment Injection assessment: no paresthesia on injection, local visualized surrounding nerve on ultrasound, no apparent complications and negative aspiration for heme Paresthesia pain: none Heart rate change: no Additional Notes The patient was placed in supine position, with ipsilateral lower extremity in extended position. Alinear ultrasound probe was placed transversely on the inguinal crease, followed by slow movement laterally or medially. The relevant neurovascular and muscle anatomy was identified including the sartorius m., femoral a., femoral v., fascial iliaca, ilacus m., and targeted branches of the femoral n. A large area of skin encompassing the intended needle insertion site was cleansed using chloraprep.The skin was anesthetized by creating a skin wheal with lidocaine. The block needle was inserted through anesthetized skin and advanced from lateral to medial using an in-plane technique with ultrasound guidance. Local anesthetic was injected in 5 mL aliquots with incremental aspiration negative for heme. Local anesthetic injected to spread the iliacus muscle from the fascia directed superiorly. A total of 25cc of 0.50% Ropivacaine without adjunct was utilized for the block. The needle was removed from the patient. The patient tolerated the procedure well, with no obvious complications. Reason for block: floor procedure Block is per consult request Skin local anesthetics medication administered: lidocaine PF (Xylocaine) 2 % injection - Injection 3 mL - 09/03/2025 11:55:00 AM Perineurial local anesthetics medication administered: 0.5% ropivacaine - Injection 25 mL - 09/03/2025 11:55:00 AM Cosigned by Stephane Enamorado MD at 09/03/2025 3:41 PM EST Associated attestation - Stephane Enamorado MD - 09/03/2025 3:41 PM EST I was present during all critical and green portions of the procedure(s) and immediately available [facility] services the entire duration. See resident note for details. documented in this encounter Plan of Treatment Upcoming Encounters Date Type Department Care Team (Late st Contact Info) Description 09/25/2025 12:30 PM EST Office Visit [facility] Orthopaedic Surgery & Sports Medicine [address] [place] [address] Sarah Hunter PA [address] [place] [address] 10/24/2025 8:00 AM EST Appointment [facility] Radiology [address] [place] [address] 10/24/2025 8:40 AM EST Office Visit [facility] Orthopaedic Surgery & Sports Medicine [address] [place] [address] Jose Antonio Hernández MD [address] [place] [address] 11/21/2025 3:00 PM EST Office Visit [facility] Nephrology, Bone & Mineral Metabolism [address], [address] [place] [address] Aime Mcelroy MD [address] [place] [address] documented as of this encounter Procedures Procedure Name Priority Date/Time Associated Diagnosis Comments PB POINT OF CARE IMAGING PLACEHOLDER Routine 09/03/2025 11:55 AM EST documented in this encounter Results * PB POINT OF CARE IMAGING PLACEHOLDER (09/03/2025 11:55 AM EST) Narrative Stephane Enamorado MD - 09/03/2025 11:55 AM EST Stephane Enamorado MD 09/03/2025 3:41 PM Peripheral Block Patient location during procedure: post-op Start time: 09/03/2025 11:55 AM Staffing Performed: Resident Anesthesiologist: Stephane Enamorado MD Resident: Heath [place] MD Preanesthetic Checklist Completed: patient identified, IV checked, site marked, risks and benefits discussed, surgical consent, monitors and equipment checked, pre-op evaluation and timeout performed Peripheral Block Patient position: supine Prep: ChloraPrep Patient monitoring: heart rate, monitoring and evaluation advisor and continuous pulse ox Block type: fascia iliaca Laterality: left Injection technique: single-shot Guidance: ultrasound guided Local infiltration: lidocaine Ultrasound used for needle placement AND ultrasound image retained Assessment Injection assessment: no paresthesia on injection, local visualized surrounding nerve on ultrasound, no apparent complications and negative aspiration for heme Paresthesia pain: none Heart rate change: no Additional Notes The patient was placed in supine position, with ipsilateral lower extremity in extended position. A linear ultrasound probe was placed transversely on the inguinal crease, followed by slow movement laterally or medially. The relevant neurovascular and muscle anatomy was identified including the sartorius m., femoral a., femoral v., fascial iliaca, ilacus m., and targeted branches of the femoral n. A large area of skin encompassing the intended needle insertion site was cleansed using chloraprep. The skin was anesthetized by creating a skin wheal with lidocaine. The block needle was inserted through anesthetized skin and advanced from lateral to medial using an in-plane technique with ultrasound guidance. Local anesthetic was injected in 5 mL aliquots with incremental aspiration negative for heme. Local anesthetic injected to spread the iliacus muscle from the fascia directed superiorly. A total of 25cc of 0.50% Ropivacaine without adjunct was utilized for the block. The needle was removed from the patient. The patient tolerated the procedure well, with no obvious complications. Reason for block: floor procedure Block is per consult request Skin local anesthetics medication administered: lidocaine PF (Xylocaine) 2 % injection - Injection 3 mL - 09/03/2025 11:55:00 AM Perineurial local anesthetics medication administered: 0.5% ropivacaine - Injection 25 mL - 09/03/2025 11:55:00 AM us Stephane Enamorado MD ANESTHESIA ORDERABLES Final Resu lt documented in this encounter Visit Diagnoses Not on filedocumented in this encounter Administered Medications Inactive Administered Medications - up to 3 most recent administrations Medication Order MAR Action Action Date Dose Rate Site lidocaine PF (Xylocaine) 2 % injection Injection, Once PRN Procedure, Starting on Wed09/03/25 at 1155, Until Wed09/03/25 at 1155, Routine, Anesthesia Intraprocedure Given 09/03/2025 11:55 AM EST 3 mL ropivacaine (Naropin) injection Injection, Once PRN Procedure, Starting on Wed09/03/25 at 1155, Until Wed09/03/25 at 1155, Routine, Anesthesia Intraprocedure Given 09/03/2025 11:55 AM EST 25 mL documented in this encounter Additional Health Concerns Assessment Noted Time A fall risk assessment has been complete d for the patient 02/01/2024 1:15 PM EDT A Body Mass Index follow-up plan has been documented for the patient 09/07/2025 11:15 AM EST documented as of this encounter Care Teams Air Pollution Control Engineer Relationship Specialty Start Date End Date Srinivasan Smith MD [address] [place] [address] PCP - General Internal Medicine 01/20/22 Pita Martinez MD [address] [place] [phone] Referring Physician Interventional Cardiology 12/23/21 documented as of this encounter
--- OUTSIDE RECORDS SUMMARY | 2025-09-04 10:20 | XMS_ITS | Encounter Summary ---
Author Organization Healthcare Address [address] [place] [address] Care Team Providers Care Regional Sales Executive Name Role Phone Pita Martinez MD Unavailable [phone] Srinivasan Smith MD Primary Care Provider + [phone] Reason for Visit * Reason Comments Fall * Auth/Cert (Routine) Specialty Diagnoses / Procedures Referred By Contac t Referred To Contact Diagnoses Displaced intertrochanteric fracture of left femur, initial encounter for closed fracture fall - left hip fx Emani Cunningham, DO [address] [place] [address] Phone: tel: fax: ALIZA 9 T2 UNI [address] [place] [address] Phone: tel: Referral ID Status Reason Start Date Expiration Date Visits Re quested Visits Authorized [id number] 1 1 Encounter Details Date Type Department Care Team (Late st Contact Info) Description 09/04/2025 10:20 AM EST - 09/04/2025 1:30 PM EST Surgery PAV A OPERATING ROOM [address] [place] [address] Jose Antonio Hernández MD [address] [facility] [address] [place] [address] INSERTION, INTRAMEDULLARY OSWALD, FEMUR Surgery Details Date/Time Status Location OR Service Patient Class Case Class Case Type Trauma Case? 09/04/2025 10:20 AM Posted [facility] OR [facility] OR 01 Orthopedic Surgery Inpatient E1 - Elective (Do not proceed without financial clearance) Panel 1 Procedure LRB Anes Op Region Wound Class Comments INSERTION, INTRAMEDULLARY OSWALD, FEMUR Left Choice Leg Upper Supine, agustin, C arm, ortho soft tissue, trauma toolbox, sterile traction, SNN Interta Surgeon Surgeon Role Service Panel Jose Antonio Hernández MD Primary Orthopedic Surgery 1 Jose Antonio Hernández MD Primary Orthopedic Surgery 1 Eva Corral MD Resident - Assisting 1 Special Needs Supine, agustin, C arm, ortho soft tissue, trauma toolbox, sterile traction, SNN Intertan documented in this encounter Social History Tobacco [...] and Family Not on file 09/05/2025 Attends [employer] Not on file 09/05 Active Member [...] any time in the past 12 m [facility], were you homeless or living in a custodial (including now)? 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) to steady your nerves or to get [...] Sign Reading Time Taken Comments Blood Pressure 118/72 09/04/2025 1:15 PM EST Pulse 76 09/04/2025 1:15 PM EST Temperature 36.4 C (97.6 F) 09/04/2025 12:45 PM EST Respiratory Rate 12 09/04/2025 1:15 PM EST Oxygen Saturation 96% 09/04/2025 1:15 PM EST Inhaled Oxygen Concentration - - Weight 50.5 kg (111 lb 5.3 oz) 09/03/2025 8:21 A M EST Height 157.5 cm (5' 2 ) 09/03/2025 9:49 AM EST Body Mass Index 20.36 09/03/2025 8:21 AM EST documented in this encounter Functional Status * Question Answer Date of Assessment Author Precautions Fall risk 09/04/2025 8:00 AM EST Halley Garza RN * Calculated C-SSRS Risk Score (Lifetime/Recent) Answer Date of Assessment Author No Risk Indicated 09/04/2025 9:30 AM EST Jazmin Cleveland RN * Question Answer Date of Assessment Author 1. Wish to be (Past 1 Month) No 09/04/2025 9:30 AM EST Shira Sandoval RN 2. Non-Specific Active Suicidal Thoughts (Past 1 Month) No 09/04/2025 9:30 AM EST Shira Sandoval RN 6. Suicidal Behavior (Lifetime) No 09/04/2025 9:30 AM EST Shira Sandoval RN documented as of this encounter Mental Status * Question Answer Entry Date Author Precautions Fall risk 09/04/2025 8:00 AM EST Halley Garza RN documented in this encounter Medications at [...] 8 hours for 13 days. 09/07/2025 09/20/20 sodium zirconium cyclosilicate (Lokelma) 10 g packet Take 10 g by mouth daily for 5 days. 09/08/2025 09/20/20 documented as of this encounter Miscellaneous Notes * Tania Randle RN - 09/07/2025 11:13 AM EST Images from the original note were not included. 798 Narcan Nasal [place]: Rescue Guide for Opioid Overdose Step 1 [...] Only for use in the nose. * Tania Randle RN - 09/07/2025 11:13 [...] controlled substances: ? Drug Enforcement Agency (LOS): http://www.deadiversion.usdoj.gov/drug_disposal/takeback/index.htm ? National Association of Drug Diversion Investigators (NADDI): http://rxdrugdropbox.org/ ? [place] Office of Drug Control Policy: http://odcp.ky.gov/Prescription+Drug+Drop+Box+Sites.htm Are [...] that tracks prescriptions of controlled substances in [place]. The DEBI report tells your doctor if you have been prescribed controlled substances in the past. Doctors must get a DEBI report before prescribing controlled substances. What can I do if the information in my DEBI report is wrong? You or your doctor may contact the dispenser who reported the information to [employer]. If the dispenser agrees that the information should be changed, he or she can fix the DEBI report. However, the dispenser may certify that the report is correct. If that is the case, you or your doctor may then call the [place] Drug Enforcement and Professional Practices Branch at .This will start an investigation of the error. PinedaVIDYA - Tania Do RN - 09/07/2025 11:12 AM EST Images from the original note were not included. [id number] Heparin Injection WHY is this medicine prescribed? [...] and out of their sight and reach. https://www.AlmondNet.Qyer.com Dispose of unneeded medications in a way [...] be awakened, immediately call emergency services at 537. Symptoms of overdose may include: ? nosebleed [...] of all of the prescription and nonprescription (vcib-jis-hnedidt) medicines, vitamins, minerals, and dietary supplements you [...] or pharmacist about specific clinical use. The [place] [employer]. represents that the information provided hereunder was formulated with a reasonable standard of care, and in conformity with professional standards in the field. The [place] [employer]System [employer] Inc. makes no representations or warranties, express or implied, including, but not limited to, any implied warranty of merchantability and/or fitness for a particular purpose, with respect to such information and specifically disclaims all such warranties. Users are advised that decisions regarding drug therapy are complex medical decisions requiring the independent, informed decision of an appropriate health careers adviser, and the information is provided for informational purposes only. The entire monograph for a drug should be reviewed for a thorough understanding of the drug's actions, uses and side effects. The [place] [employer]System Pharmac[employer]. does not endorse or recommend the use of any drug.The information is not a substitute for medical care. AHFS?? Patient Medication Information?. ?? Copyright, 2023. The [place] [employer] of Health-System Pharmacists??, [address] [facility], [address], [place], [place]. All Rights Reserved. Duplication for commercial use must be authorized by [facility]. Selected Revisions: June 18, 2017. AHFS?? Patient [...] of your leg. This is also called ?Mflday-ib-Mtk Weight Bearing,? ?Toe-Touch Weight Bearing,? or ?Foot-Flat [...] heal and have less pain. * Rios [facility] - Tania Do RN - 09/07/2025 11:12 AM EST Images from the original note were not included. 17395 Preventing Falls: Staying Active Staying active is [...] visit a senior center. ? Go to rastafarian services. ? Plan a potluck or game [...] clubs, or even at a place of orthodoxy. This may work best if you' ve never exercised in the past or if you need company to get motivated. But you can exercise on your own if you prefer. Try an exercise video or walk in the park. Last Reviewed Date: 2025 00:00:00 ?? 2819-3924 [employer]. All rights reserved. This information is not intended as a substitute for professional medical care. Always follow your healthcare professional's instructions. * [facility] Tania Do RN - 09/07/2025 11:12 AM EST Images from the original note were not included. [id number] After a Fall You have had a [...] red.) Last Reviewed Date: 2025 00:00:00 ?? 3103-4442 [employer]. All rights reserved. This information is not intended as a substitute for professional medical care. Always follow your healthcare professional's instructions. * [facility] - Tania Do RN - 09/07/2025 11:11 AM EST Images from the original note were not included. 49090 Understanding Hip Fractures The hip is one of the largest weight-bearing joints in the body. It?s also a common place for a fracture after a fall--especially in older people. Hip fractures are even more likely in people with osteoporosis, a disease that leads to weakened bones. A healthy hip The hip is a rxlv-aaj-limdhe joint where the thighbone (femur) joins the [...] femur. Last Reviewed Date: 2024 00:00:00 ?? 7569-0816 [employer]. All rights reserved. This information is not intended as a substitute for professional medical care. Always follow your healthcare professional's instructions. * [facility] - Tania Do RN - 09/07/2025 11:11 AM EST Images from the original note were not included. 33379 Hip Fracture Surgery: Types The type of [...] replaced. Last Reviewed Date: 2024 00:00:00 ?? 7632-7199 [employer]. All rights reserved. This information is not intended as a substitute for professional medical care. Always follow your healthcare professional's instructions. * [facility] - Tania Do RN - 09/07/2025 11:11 AM EST Images from the original note were not included. 58015 What Is Osteoporosis? Osteoporosis is a disease [...] safety. Last Reviewed Date: 2024 00:00:00 ?? 9324-0363 [employer]. All rights reserved. This information is not intended as a substitute for professional medical care. Always follow your healthcare professional's instructions. * Discharge Summary - Pita Muhammad MD - 09/07/2025 10:29 AM EST Hospitalization Admit Date/Time: 09/03/2025 6:27 AM Admitting Attending: Emani Cunningham Discharge Date: 09/07/2025 Discharge Attending Physician: Renu Barros MD PCP name and Address: Srinivasan Smith MD [address] [place] [address] / [place] [address] Referring provider name and address: David Francisco MD [address] [place] [address] [address] [place] [address] Chief Concern, Brief History of Present Illness, [...] fracture. Degenerative changes and demineralization as described. [place] hyperdense structure in the region of the [...] 09/20/2025 10:50 AM Sarah Hunter PA [facility] 09/20/2025 12:00 PM [facility] DEXA BMDCHKYC [facility] Test Results Pending At Discharge Pending Labs [...] Mobility Bed Mobility Exam: Scooting/Bridging Level of Assumption: Contact guard (seated scooting) Physical/Nonphysical Assist: Verbal Cues, Minimal cues Assistive Device: Bed rails Bed Mobility Exam: Supine to Sit Level of Assumption: Minimum assist (75% patient's effort) Physical/Nonphysical Assist: Verbal Cues, Minimal cues, HOB elevated Assistive Device: Bed rails Transfers Transfer Exam: Sit to stand Level of Assumption: Minimum assist (75% patient's effort) Physical/Nonphysical Assist: Verbal Cues, Minimal cues Assistive Device: Walker, rolling Transfer Exam: Stand to Sit Level of Assumption: Minimum assist (75% patient's effort) Physical/Nonphysical Assist: Verbal Cues, Minimal cues Assistive Device: Walker, rolling Transfer Exam: Bed to Chair/Chair to Bed Level of Assumption: Minimum assist (75% patient's effort) Physical/Nonphysical Assist: [...] environment lacks the necessary adaptive equipment or 24/ supervision, placing the patient at high risk [...] Note Rachel Roger 85 y.o. female CSN: [id number] Admission: 09/03/2025 6:27 AM Primary Problem: Displaced intertrochanteric fracture of left femur, initial encounter for closed fracture Primary Warehouse Receiving Supervisor: Primary Caregiver: Self Assistance Available at Discharge: Current Outpatient/Agency/Support Group: other (see comments) (n/a) Availability of Care Givers (#Hours): 1-4 hours Family/Warehouse Receiving Supervisor(s) Willingness Assessed to care for patient at home: Yes Family/Warehouse Receiving Supervisor(s) Readiness Assessed to care for patient at home: Yes Housing Circumstances-Z Codes: Housing Circumstances (select all that apply): Low Income (101-300% Federal Poverty Guidlines) - Z596 Discharge Facility/Level of Care Needs: Discharge Facility/Level of Care Needs: nursing facility, skilled Patient's Choice of Community Agency(s): Patient's Choice of Community Agency(s): [facility] Patient/Family Anticipated Services at Transition: Patient/Family Anticipated Services at Transition: [facility] DME/Equipment Needed after Discharge: Equipment Currently Used at Home: none Equipment Needed After Discharge: none Readmission Within the Last 30 Days: Readmission Within the Last 30 Days: no previous admission in last 30 days Medicare Documentation: Medicare Second Notice?: Yes Date Second Notice Completed: 09/07/25 Time Second Notice Completed: 101 Medicare Second Notice Recieved By: patient Follow-up: [facility] [address] [facility], [address] [facility] [address] Discharge Transportation: Transportation Anticipated: family or friend will provide Transportation Home at Discharge: Medical Transport Has discharge transport been arranged?: Yes What day is the transport expected?: 09/07/25 What time is the transport expected?: 1200 Follow Up Transport: Transportation Needed to Follow up Appoinments: Family/Friend will Provide Additional Comments: Per primary provider, pt is medically ready to discharge to [facility]. Pt has been approved to admit to [facility] today. [facility] is confirmed for noon today and pt will be sent to [facility]. Pt stated she would update her family with transport time and is agreeable to discharge. [facility] [phone] [phone] [facility] [place] Adele Wu RN * Care Plan - Marley Almonte RN - 09/07/2025 10:15 AM EST Problem: Adult Inpatient Plan of Care Goal: Plan of Care Review Outcome: Adequate for Care Transition Flowsheets (Taken 09/07/2025 0126 by Sparkle Guerrero, FILIBERTO) Progress: improving Plan of Care Reviewed With: patient Goal: Patient-Specific Goal (Individualized) Outcome: Adequate for Care Transition Flowsheets (Taken 09/07/2025 07) Patient/Family-Specific Goals (Include Timeframe): Pt will remain free from fall/injury this shift. Individualized Care Needs: Saftey Anxieties, Fears or Concerns: Safety Goal: Absence of Hospital-Acquired Illness or Injury Outcome: Adequate for Care Transition Intervention: Identify and Manage Fall Risk Flowsheets (Taken 09/07/2025 06 by Sparkle Guerrero RN) Safety Promotion/Fall Prevention: activity supervised safety [...] (HOB) Positioning: HOB at 30-45 degrees Taken 09/06/2025240 by Sparkle Guerrero RN Pressure Reduction Devices: alternating pressure pump (KALLI) positioning supports utilized pressure-redistributing mattress utilized Problem: Fall Injury Risk Goal: Absence of Fall and Fall-Related Injury Outcome: Adequate for Care Transition Intervention: Identify and Manage Contributors Flowsheets (Taken 09/07/2025125 by Sparkle Guerrero, FILIBERTO) Medication Review/Management: medications [...] Care Transition Intervention: Promote Activity and Functional Assumption Flowsheets Taken 09/07/2025 09 by Marley Almonte RN Activity Assistance Provided: assistance, 1 person Taken 09/07/2025125 by Sparkle Guerrero RN Self-Care Promotion: independence encouraged BADL personal objects within reach Taken 09/06/2025240 by Sparkle Guerrero RN Adaptive Equipment Use: use encouraged Problem: Mobility Impairment Goal: Optimal Mobility Outcome: Adequate for Care Transition Intervention: Optimize Mobility Flowsheets Taken 09/07/2025899 by Marley Almonte RN Activity Management: back [...] Control Flowsheets (Taken 09/07/2025125 by Sparkle Guerrero, FILIBERTO) Hyperglycemia Management: blood glucose monitored Hypoglycemia Management: [...] Control Flowsheets (Taken 09/07/2025125 by Sparkle Guerrero, FILIBERTO) Hyperglycemia Management: blood glucose monitored Goal: Minimize [...] 09/07/2025125 Skin Protection: incontinence pads utilized Taken 09/06/20252199 Activity Management: activity adjusted per tolerance up to bedside commode Taken 09/06/2025240 Pressure Reduction Techniques: frequent weight [...] Ongoing, Progressing Intervention: Promote Activity and Functional Assumption Flowsheets Taken 09/07/2025125 Activity Assistance Provided: assistance, stand-by Self-Care Promotion: independence encouraged BADL personal objects within reach Taken 09/06/2025240 Adaptive Equipment Use: use encouraged Problem: Surgery Nonspecified Goal: Absence of Bleeding Outcome: Ongoing, Progressing Intervention: Monitor and Manage Bleeding Flowsheets (Taken 09/07/2025125) Bleeding Management: dressing monitored Goal: Effective Bowel Elimination Outcome: Ongoing, Progressing Intervention: Enhance Bowel Motility and Elimination Flowsheets (Taken 09/06/2025 024) Bowel Elimination Management: relaxation techniques promoted toileting offered Bowel Motility Enhancement: fluid intake encouraged Goal: Fluid and Electrolyte Balance Outcome: Ongoing, Progressing Intervention: Monitor and Manage Fluid and Electrolyte Balance Flowsheets (Taken 09/06/2025 024) Fluid/Electrolyte Management: fluids provided Goal: Blood Glucose Level Within Target Range Outcome: Ongoing, Progressing Intervention: Optimize Glycemic Control Flowsheets (Taken 09/07/2025 012) Hyperglycemia Management: blood glucose monitored Hypoglycemia Management: blood glucose monitored Goal: Absence of Infection Signs and Symptoms Outcome: Ongoing, Progressing Intervention: Prevent or Manage Infection Flowsheets Taken 09/07/2025125 Fever Reduction/Comfort Measures: lightweight clothing lightweight bedding Taken 09/06/2025240 Infection Management: aseptic technique maintained Goal: Anesthesia/Sedation Recovery Outcome: Ongoing, Progressing Intervention: Optimize Anesthesia Recovery Flowsheets (Taken 09/07/2025 012) Safety Promotion/Fall Prevention: activity supervised assistive device/personal items within reach clutter-free environment maintained fall prevention program maintained nonskid shoes/slippers when out of bed room organization consistent safety round/check completed toileting scheduled Goal: Optimal Pain Control and Function Outcome: Ongoing, Progressing Intervention: Prevent or Manage Pain Flowsheets Taken 09/07/2025125 Pain Management Interventions: position adjusted pillow support provided rest Taken 09/06/2025240 Diversional Activities: smartphone television Goal: Nausea and [...] Deep Breathing: done independently per patient Taken 09/06/2025240 Airway/Ventilation Management: airway patency maintained Head of Bed (HOB) Positioning: HOB elevated Problem: Glycemic Control Impaired Goal: Blood Glucose Level Within Target Range Outcome: Ongoing, Progressing Intervention: Optimize Glycemic Control Flowsheets (Taken 09/07/2025 0126) Hyperglycemia Management: blood glucose monitored Goal: Minimize Hypoglycemia Risk Outcome: Ongoing, Progressing Intervention: Minimize and Manage Hypoglycemia Flowsheets (Taken 09/07/2025 0126) Hypoglycemia Management: blood glucose monitored * Progress Notes - Coral Bal - 09/06/2025 3:25 PM EST Physical Therapy Treatment Patient Name: Rachel Roger Today's Date: 09/06/2025 PT Discharge Recommendations: Subacute rehab Equipment Recommended: Defer to facility Subjective Patient agreeable to physical therapy. Participants in Care Family/Caregiver Present: Yes Family/Caregiver: Adult Son Electrical Accessories Assembler: Not Applicable Presentation Oxygen Oxygen Therapy: None [...] functional mobility, functional strength, and activity tolerance. PROCESS LINE OPERATOR provided verbal and tactile cues to facilitate [...] mobility. Bed Mobility Exam: Rolling/Turning Level of Assumption: Minimum assist (75% patient effort) Physical/Nonphysical Assist: Verbal Cues, Minimal cues Assistive Device: Bed rails Bed Mobility Exam: Scooting/Bridging Level of Assumption: Minimum assist (75% patient's effort) Physical/Nonphysical Assist: Verbal Cues, Minimal cues Assistive Device: Bed rails Bed Mobility Exam: Supine to Sit Level of Assumption: Minimum assist (75% patient's effort) Physical/Nonphysical Assist: Verbal Cues, Minimal cues, HOB elevated Assistive Device: Bed rails Transfers Transfer Interventions: Patient performed 4 reps of sit to/from stand from different surface levels. Provided cues for proper hand placement, BLE set-up, forward trunk leans to initiate coming to stand, and safe descent to sit. Transfer Exam: Sit to stand Level of Assumption: Minimum assist (75% patient's effort) Physical/Nonphysical Assist: Verbal Cues, Set-up required, Moderate cues, Nonverbal cues (demo/gestures) Assistive Device: Walker, rolling Transfer Exam: Stand to Sit Level of Assumption: Minimum assist (75% patient's effort) Physical/Nonphysical Assist: Verbal Cues, Set-up required, Nonverbal cues (demo/gestures), Moderatecues Assistive Device: Walker, rolling Toilet Transfer Level of Assumption: Minimum assist (75% patient's effort) Physical/Nonphysical Assist: [...] Ongoing, Progressing Intervention: Optimize Mobility Flowsheets (Taken 09/06/20251452) Activity Management: activity adjusted per tolerance activity encouraged Problem: Mobility Impairment Goal: Optimal Mobility Outcome: Ongoing, Progressing Intervention: Optimize Mobility Flowsheets (Taken 09/06/20251452) Activity Management: activity adjusted per tolerance activity encouraged Problem: Orthopaedic Fracture Goal: Absence of Bleeding Outcome: Ongoing, Progressing Intervention: Monitor and Manage Fracture Bleeding Flowsheets (Taken 09/06/20251452) Bleeding Management: dressing monitored Goal: Bowel Elimination Outcome: Ongoing, Progressing Goal: Absence of Embolism Signs and Symptoms Outcome: Ongoing, Progressing Intervention: Prevent or Manage Embolism Risk Flowsheets (Taken 09/06/2025 145) VTE Prevention/Management: [...] Ongoing, Progressing Intervention: Promote Activity and Functional Assumption Flowsheets (Taken 09/06/20251452) Activity Assistance Provided: assistance, [...] Progressing Intervention: Optimize Glycemic Control Flowsheets (Taken 09/06/2025 1453) Hyperglycemia Management: blood glucose monitored Goal: Minimize Hypoglycemia Risk Outcome: Ongoing, Progressing Intervention: Minimize and Manage Hypoglycemia Flowsheets (Taken 09/06/2025 1453) Hypoglycemia Management: blood glucose monitored * Clinician [...] Note Rachel Roger 85 y.o. female CSN: [id number] Admission: 09/03/2025 6:27 AM Primary Problem: Displaced intertrochanteric fracture of left femur, initial encounter for closed fracture Anticipated Discharge Date: 09/07 Per primary provider, pt is not medically ready. Pt received 1 unit PRBC today. Provider also wantsto monitor electrolytes. Anticipate being medically ready in 24 hours. Pt has been accepted by [facility] and insurance has already been approved. Adele [...] fracture. Degenerative changes and demineralization as described. [place] hyperdense structure in the region of the [...] required Vianey Perry MD Orthopedic Surgery PGY-1 [facility] Cosigned by Jose Antonio Hernández MD at 09/07/2025 8:47 AM EST * Care Plan - Sparkle Guerrero RN - 09/06/2025 2:53 AM EST Problem: Adult Inpatient Plan of Care Goal: Plan of Care Review Outcome: Ongoing, Progressing Flowsheets (Taken 09/06/2025240) Progress: improving Plan of Care Reviewed With: [...] Ongoing, Progressing Intervention: Promote Activity and Functional Assumption Flowsheets (Taken 09/06/2025240) Activity Assistance Provided: assistance, [...] Intervention: Optimize Glycemic Control Flowsheets (Taken 09/06/2025 024) Hyperglycemia Management: blood glucose monitored Goal: Minimize Hypoglycemia Risk Intervention: Minimize and Manage Hypoglycemia Flowsheets (Taken 09/06/2025 024) Hypoglycemia Management: blood glucose monitored * Care [...] 09/05/2025 1230) Pain Management Interventions: care clustered camxuh-kpm-bcyey dosing utilized Problem: Skin Injury Risk Increased [...] 09/05/2025 1230) Pain Management Interventions: care clustered iofdtv-rlb-lemrd dosing utilized Goal: Effective Oxygenation and Ventilation Outcome: Ongoing, Progressing Problem: Pain Acute Goal: Optimal Pain Control and Function Outcome: Ongoing, Progressing Intervention: Optimize Psychosocial Wellbeing Flowsheets (Taken 09/05/2025 1230) Supportive Measures: active listening utilized Intervention: Develop Pain Management Plan Flowsheets (Taken 09/05/2025 1230) Pain Management Interventions: care clustered oxvqry-dyq-cdybp dosing utilized Problem: Self-Care Deficit Goal: Improved Ability to Complete Activities of Daily Living Outcome: Ongoing, Progressing Intervention: Promote Activity and Functional Assumption Flowsheets (Taken 09/05/2025 1230) Activity Assistance Provided: assistance, 1 person assistance, 2 people * Progress Notes - Audelia Roca, DO - 09/05/2025 12:04 PM EST Images [...] fracture. Degenerative changes and demineralization as described. [place] hyperdense structure in the region of the [...] Audelia Roca DO Internal Medicine PGY-2 Pager [phone]; Epic Chat preferred Cosigned by Renu Barros [...] Note Rachel Roger 85 y.o. female CSN: [id number] Admission: 09/03/2025 6:27 AM Primary Problem: Displaced intertrochanteric fracture of left femur, initial encounter for closed fracture Marine Engine Machinist reviewed chart and spoke with patient to complete this Initial Case Management Assessment. PCP: Srinivasan Smith MD Emergency Contact: Extended Emergency Contact Information Primary Emergency Contact: Autumn Staton Mobile Relation: Daughter Preferred language: Kyrgyz Electrical Accessories Assembler needed? No Secondary Emergency Contact: Bijal Roger Mobile Relation: Spouse Preferred language: Kyrgyz Electrical Accessories Assembler needed? No Insurance: Primary Visit Coverage Payer Plan Sponsor Code Group Number Group Name ANTHEM MEDICARE ANTHEM SENIOR ADVANTAGE [id number] Primary Visit Coverage Subscriber Subscriber ID Subscriber Name Subscriber SSN Subscriber Address [id number] RACHEL ROGER [id number] [place], [place] [id number] Patient information: Primary Caregiver: Self Support System: Immediate family Daily Living Activities: Functional Status: Independent Living Arrangements: Spouse/Significant other Type of Residence: Private residence, Single Level [address] [place] [id number] Smoker in the Home?: Yes Current DME: Equipment Currently Used at Home: none Current DME Provider: No HH, HI, or dialysis Income Information: Income Source: Retired Income/Expense Information: Expenses exceed income Housing Circumstances-Z Codes: Housing Circumstances (select all that apply): Low Income (101-300% Federal Poverty Guidlines) - Z596 Patient Referred to: [place] Anticipated Discharge Date: 09/07/25 Patient's Discharge Goal: [...] HI, or dialysis Living Will/Advance Directive/Power of Acidizer Helper /Guardian: Unable to assess: No Have you reviewed your Advance Directive and is it valid for this stay?: No Advance Directive: Not applicable Information Provided on Healthcare Directives: No Pre-existing DNR/DNI Order: No Patient Requests Assistance: No Additional Comments: Pt is POD 1 and has TERESITA recs. Pt requested a referral be sent to [facility]. Pt lives with her , who is blind, They live in a bottom floor apartment. Pt stated she has a son and daughter that could provide some assistance post rehab. Pt stated family could provide follow up transportation. Adele Wu RN * Nursing Note - Shin Visnon RN - 09/05/2025 10:10 AM EST Orthopedic [...] please contact the Orthopedic Transition Nurse at [phone] Wednesday through Wednesday 8:00 am to 2:30 pm. If you feel your concern is a medical emergency please call 911 immediately. Based upon recent changes to [place] law related to prescribing opioid pain medications, [...] Equipment Recommended: Defer to facility History Rachel Roegr is 85 y.o. female admitted 09/03/2025 for [...] evaluation. Participants in Care Family/Caregiver Present: No Electrical Accessories Assembler: Not Applicable Presentation Oxygen Therapy: None (Room [...] admission Level of Mobility: Ambulatory- community Mobility Assumption: Independent gait without device History of Falls: [...] Mobility Bed Mobility Exam: Rolling/Turning Level of Assumption: Minimum assist (75% patient effort) Physical/Nonphysical Assist: Verbal Cues Assistive Device: Bed rails Bed Mobility Exam: Scooting/Bridging Level of Assumption: Minimum assist (75% patient's effort) Physical/Nonphysical Assist: Verbal Cues Assistive Device: Bed rails Bed Mobility Exam: Supine to Sit Level of Assumption: Minimum assist (75% patient's effort) Physical/Nonphysical Assist: Verbal Cues Assistive Device: Bed rails Bed Mobility Exam: Sit to Supine Level of Assumption: (Patient left OOBTC.) Transfers Transfer Exam: Sit to stand Level of Assumption: Minimum assist (75% patient's effort) Physical/Nonphysical Assist: Verbal Cues Assistive Device: Walker, rolling Transfer Exam: Stand to Sit Level of Assumption: Minimum assist (75% patient's effort) Physical/Nonphysical Assist: [...] given current weight bearing status. Standardized Assessments [facility] 6-Click Daily Activities Help from Other: Don/Doff Regular Lower Body Clothings: Total Help From Other: Bathing: A lot Help From Other: Toileting: A lot Help From Other: Don/Doff Upper Body Clothings: Little Help From Other: Grooming: Little Help From Other: Eating Meals: None [facility] 6 Click - Daily Activities Score: 15 [...] increase overall performancein hopes to return to PLOF. OT Findings: Impaired ADL performance, Impaired IADL [...] admission Level of Mobility: Ambulatory- community Mobility Assumption: Independent gait without device History of Falls: [...] Mobility Bed Mobility Exam: Rolling/Turning Level of Assumption: Minimum assist (75% patient effort) Physical/Nonphysical Assist: Verbal Cues Assistive Device: Bed rails Bed Mobility Exam: Scooting/Bridging Level of Assumption: Minimum assist (75% patient's effort) Physical/Nonphysical Assist: Verbal Cues Assistive Device: Bed rails Bed Mobility Exam: Supine to Sit Level of Assumption: Minimum assist (75% patient's effort) Physical/Nonphysical Assist: Verbal Cues Assistive Device: Bed rails Bed Mobility Exam: Sit to Supine Level of Assumption: (Patient left OOBTC.) Transfers Transfer Exam: Sit to stand Level of Assumption: Minimum assist (75% patient's effort) Physical/Nonphysical Assist: Verbal Cues Assistive Device: Walker, rolling Transfer Exam: Stand to Sit Level of Assumption: Minimum assist (75% patient's effort) Physical/Nonphysical Assist: [...] of Bed 3 Sit to Stand 3 Chair/Gzs-pa-Xisdk Transfer 3 Toilet Transfer 9 Car Transfer [...] a helper. 5 Set-up or Clean-up Assistance Gotham sets up or cleans up; patient completes activity. Gotham assists only prior to or following the activity. 4 Supervision or touching assistance Gotham provides verbal cues and/or touching/steadying and/or contact guard assistance as patient completes activity. Assistance may be provided throughout the activity or intermittently. 3 Partial/Moderate Assistance Gotham does LESS THAN HALF the effort. Gotham lifts, holds or supports trunk or limbs, but provides less than half the effort. 2 Substantial/Maximal Assistance Gotham does MORE THAN HALF the effort. Gotham lifts or holds trunkor limbs and provides more than half the effort. 1 Dependent Gotham does ALL of the effort. Patient does [...] medical condition or safety concerns Standardized Assessments [facility] 6-Clicks Mobility Assessment Difficulty patient has turning [...] climbing 3-5 steps with a railing?: Unable [facility] 6-Clicks Mobility Assessment Total : 16 Assessment [...] and participation incommunity/leisure activities. [facility] from [facility] patient will require Subacute rehab to support [...] required Vianey Perry MD Orthopedic Surgery PGY-1 [facility] Cosigned by Jose Antonio Hernández MD at 09/05/2025 8:25 AM EST * Care Plan - Damaris Cunningham RN - 09/04/2025 7:59 PM EST Problem: Adult Inpatient Plan of Care Goal: Plan of Care Review Outcome: Ongoing, Progressing Flowsheets (Taken 09/04/20251634 by Halley Jaimes, RN) Progress: improving Outcome Evaluation: Patient back from OR. Patient alert and oriented. Plan of Care Reviewed With: patient Goal: Patient-Specific Goal (Individualized) Outcome: Ongoing, Progressing Flowsheets (Taken 09/04/2025 1635 by Halley Jaimes, RN) Patient/Family-Specific Goals (Include Timeframe): Patient will remain free from injury during hospital stay. Individualized Care Needs: Safety Anxieties, Fears or Concerns: Safety Goal: Absence of Hospital-Acquired Illness or Injury Outcome: Ongoing, Progressing Intervention: Identify and Manage Fall Risk Flowsheets (Taken 09/04/2025 1635 by Halley Jaimes, RN) Safety Promotion/Fall Prevention: activity supervised safety round/check completed room organization consistent Intervention: Prevent Skin Injury Flowsheets Taken 09/04/2025 163 by Halley Jaimes RN Body Position: turned left Taken 09/03/2025 180 by Catalina Andrade RN Skin Protection: incontinence pads utilized pulse oximeter probe site changed transparent dressing maintained Goal: Optimal Comfort and Wellbeing Outcome: Ongoing, Progressing Intervention: Monitor Pain and Promote Comfort Flowsheets (Taken 09/04/2025 163 by Halley Jaimes RN) Pain Management Interventions: emotional support Problem: Skin Injury Risk Increased Goal: Skin Health and Integrity Outcome: Ongoing, Progressing Intervention: Optimize Skin Protection Flowsheets Taken 09/04/20251634 by Halley Jaimes RN Activity Management: activity adjusted per tolerance Taken 09/03/20251999 by Damaris Cunningham RN Head of Bed (HOB) Positioning: HOB elevated Taken 09/03/20251803 by Catalina Andrade RN Pressure Reduction Techniques: [...] RN Isolation Precautions: protective precautions initiated Taken 09/03/2025 180 by Catalina Andrade RN Infection Management: aseptic technique maintained Problem: Mobility Impairment Goal: Optimal Mobility Outcome: Ongoing, Progressing Intervention: Optimize Mobility Flowsheets Taken 09/04/20251634 by Halley Jaimes RN Activity Management: activity adjusted per tolerance Taken 09/03/20251999 by Damaris Cunningham RN Assistive Device Utilized: front wheel walker [...] Progressing Intervention: Optimize Functional Ability Flowsheets Taken 09/04/20251634 by Halley Jaimes RN Activity Management: activity [...] Progressing Intervention: Optimize Psychosocial Wellbeing Flowsheets Taken 09/04/20251634 by Halley Jaimes RN Supportive Measures: active listening utilized Taken 09/03/20251803 by Catalina Andrade RN Diversional Activities: smartphone television Spiritual Activities Assistance: music provided spiritual support provided Intervention: Prevent or Manage Pain Flowsheets (Taken 09/04/20251634 by Halley Jaimes RN) Medication Review/Management: medications reviewed Problem: Self-Care Deficit Goal: Improved Ability to Complete Activities of Daily Living Outcome: Ongoing, Progressing Intervention: Promote Activity and Functional Assumption Flowsheets Taken 09/04/20251634 by Halley Jaimes RN Self-Care Promotion: independence encouraged Taken 09/03/20251999 by Damaris Cunningham, RN Activity Assistance Provided: assistance, 1 person Taken 09/03/20251803 by Lupe, Catalina, RN Adaptive Equipment Use: use encouraged * [...] Intervention: Prevent Skin Injury Flowsheets (Taken 09/04/2025 1635) Body Position: turned left Goal: Optimal Comfort and Wellbeing Outcome: Ongoing, Progressing Intervention: Monitor Pain and Promote Comfort Flowsheets (Taken 09/04/2025 163) Pain Management Interventions: emotional support Problem: Skin [...] Ongoing, Progressing Intervention: Promote Activity and Functional Assumption Flowsheets (Taken 09/04/2025 1635) Self-Care Promotion: independence [...] Instr - AVS First Page - Shin Vinson, RN - 09/04/2025 2:21 PM EST Reasons to call: Feels warm or hot to the touch Is red or dark pink Is tight or swollen and looks shiny Becomes more tender or sore to the touch Wound smells bad Wound is draining pus, bleeding or coming open Temperature is above 101.5 F Pain is not relieved by medications * Progress Notes - Audelia Roca, - 09/04/2025 12:59 PM EST Images from [...] fracture. Degenerative changes and demineralization as described. [place] hyperdense structure in the region of the [...] Audelia Roca DO Internal Medicine PGY-2 Pager [phone]; Epic Chat preferred Cosigned by Renu Barros [...] Agree with above assessment and evaluation from resident/ROTARY DRIER FEEDER. * Consults - Rosey Clifton RD - 09/04/2025 11:22 AM EST Adult Nutrition Evaluation Note Rachel Roger 85 y.o. female CSN: [id number] Room/Bed OR/- Nutrition evaluation type: assessment Reason [...] since February. She was started on Remeron PROCESS LINE OPERATOR due to weight loss. Vitals and Basic Assessment: BP: (!) 140/67 Temp: 36.8 ??C (98.2 ??F) Oxygen Therapy: None (Room air) O2 Delivery Method: Nasal cannula [place] Coma Scale Score: 15 Luis Scale Score: [...] (Calculated): 20.36 Weight Evaluation: Normal (BMI 18.5-24.9) [place] Body Weight (kg): 50 Percent [place] Body Weight: 101 Wt Readings from Last [...] 650 mg, 650 mg, Oral, q8h, Audelia Roca, DO, 650 mg at 09/04/25 0329 [Transfer [...] 1,000 mcg, 1,000 mcg, Oral, Daily, Audelia Roca, DO, 1,000 mcg at 09/03/25 1545 [Transfer [...] 5 mg, 5 mg, Oral, BID, Audelia Roca, DO, 5 mg at 09/04/25 0907 [Transfer Hold] mupirocin (Bactroban) 2 % ointment 1 Application, 1 Application, Each Nostril, BID,Chris Saravia MD, 1 Application at 09/04/25 0907 [Transfer Hold] omega-3 (Fish Oil) capsule 1,000 mg, 1,000 mg, Oral, Daily, Audelia Roca, DO, 1,000 mg at 09/03/25 1545 [Transfer Hold] ondansetron ODT (Zofran-ODT) disintegrating tablet 4 mg, 4 mg, Oral, q6h PRN OR[Transfer Hold] ondansetron (Zofran) injection 4 mg, 4 mg, Intravenous, q6h PRN OR [Transfer Hold] ondansetron (Zofran) 4 MG/5ML solution 4 mg, 4 mg, Oral, q6h PRN, Audelia Roca, DO [Transfer Hold] oxyCODONE (Roxicodone) immediate release tablet 5 mg, 5 mg, Oral, q6h PRN, Audelia Roca, DO [Transfer Hold] polyethylene glycol (Miralax) packet 17 g, 17 g, Oral, Daily, Audelia Roca, DO [Transfer Hold] senna (Senokot) tablet 17.2 mg, 2 tablet, Oral, Nightly, Audelia Roca, DO, 17.2 mg at 09/03/252001 Insert peripheral IV, , , Once AND Saline lock IV, , , Once AND [Transfer Hold] sodium chloride 0.9 % flush 10 mL, 10 mL, Intravenous, q12h, 10 mL at 09/03/25 2316 AND [Transfer Hold] sodium chloride 0.9 % flush 10 mL, 10 mL, Intravenous, PRN, Audelia Roca, DO Insert peripheral IV, , , Once AND Saline lock IV, , , Once AND sodium chloride 0.9 % flush10 mL, 10 mL, Intravenous, q12h AND sodium chloride 0.9 % flush 10 mL, 10 mL, Intravenous, PRN,Chris Saravia MD Facility-Administered Medications Ordered in Other Encounters: dexamethasone (Decadron) injection, , Intravenous, PRN, Maze, [place] A, ROTARY DRIER FEEDER, 4 mg at 09/04/25 1051 ePHEDrine Sulfate (Akovaz) injection, , Intravenous, PRN, Maze, Vaishnavi A, ROTARY DRIER FEEDER, 5 mg at 09/04/25 1051 fentaNYL (Sublimaze) injection, , Intravenous, PRN, Maze, [place] A, ROTARY DRIER FEEDER, 100 mcg at 09/04/25 1120 lactated Ringer's infusion, , Intravenous, Continuous PRN, Maze, [place] A, ROTARY DRIER FEEDER, New Bag at 09/04/25 1026 Lidocaine HCl prefilled syringe, , Buccal, PRN, Maze, Vaishnavi A, ROTARY DRIER FEEDER, 20 mg at 09/04/25 1030 phenylephrine in NS (Fortunato-Synephrine) 100 mcg/mL prefilled syringe, , Intravenous, PRN, Maze, Vaishnavi A, ROTARY DRIER FEEDER, 150 mcg at 09/04/25 1107 propofol (Diprivan) injection, , Intravenous, PRN, Maze, Vaishnavi A, ROTARY DRIER FEEDER, 100 mg at 09/04/25 1030 rocuronium (ZeMuron) injection, , Intravenous, PRN, Maze, [place] A, ROTARY DRIER FEEDER, 50 mg at 09/04/25 1031 vasopressin (Vasostrict) injection, , Subcutaneous, PRN, Maze, [place] A, ROTARY DRIER FEEDER, 1 Units at * Op Note - Jose Antonio Hernández MD - 09/04/2025 11:01 AM EST Operative Note Date: 09/04/25 Location: [facility] Name: Rachel Kebede Roger, : 1940, Diagnoses: Pre-op Diagnosis Displaced intertrochanteric fracture of left femur, initial encounter for closed fracture Post-op Diagnosis Displaced intertrochanteric fracture of left femur, initial encounter for closed fracture Procedure(s): Open treatment left intertrochanteric femur fracture with medullary implant Attending Surgeon(s): * Jose Antonio Hernández - Primary Complex Case Manager(s): * Eva Corral MD - Resident - Assisting Anesthesia: Choice ASA: III Blood Administration: Blood Product Administration History Product Date Volume Status Transfuse RBC RBC 09/04/2025 350 mL Stopped Estimated Blood Loss: 75 ml Drains: * None in log * Implants Type Name Action Serial No. Nail NAIL INTERTAN TRIGEN [id number] - [id number] Implanted Specimen: Findings: Displaced and unstable left [...] using the insertion jig. X-rays demonstrated anatomic jain the proximal femur and safe implant placement. [...] to OR today, has been NPO since [place] for left femur IT fracture fixation. Objective: [...] IT fx - DVT prophylaxis: held at [place] - Pain control: MMPC - Diet: NPO [...] required Vianey Perry MD Orthopedic Surgery PGY-1 [facility] Cosigned by Jose Antonio Hernández MD at 09/04/2025 7:12 AM EST * Care Plan - Damaris Cunningham RN - 09/03/2025 11:51 PM EST Problem: Adult Inpatient Plan of Care Goal: Plan of Care Review 09/03/20252348 by Damaris Cunningham RN Outcome: Ongoing, Progressing Flowsheets (Taken 09/03/20251803 by Catalina Andrade RN) Progress: no change Plan of Care Reviewed [...] Progressing Intervention: Prevent Skin Injury Flowsheets (Taken 09/03/20251803 by Catalina Andrade RN) Skin Protection: incontinence [...] Positioning: HOB elevated Taken 09/03/20251803 by Catalina Andrade RN Pressure Reduction Techniques: [...] Intervention: Identify and Manage Contributors Flowsheets (Taken 09/03/2025 180 by Catalina Andrade, FILIBERTO) Medication Review/Management: medications reviewed Self-Care Promotion: BADL [...] Goal: Optimal Functional Ability 09/03/20252348 by Damaris Cunningham RN Outcome: Ongoing, Progressing 09/03/20252348 by Damaris Cunningham RN Outcome: Ongoing, Progressing Intervention: Optimize Functional Ability Flowsheets Taken 09/03/20251999 by Damaris Cunningham RN Activity Management: activity adjusted per tolerance Taken 09/03/20251803 by Catalina Andrade RN Positioning/Transfer [...] Progressing Intervention: Optimize Psychosocial Wellbeing Flowsheets (Taken 09/03/2025 180 by Catalina Andrade RN) Supportive Measures: active listening utilized decision-making supported [...] Pain Flowsheets (Taken 09/03/20251803 by Catalina Andrade, RN) Medication Review/Management: medications reviewed Problem: Self-Care Deficit Goal: Improved Ability to Complete Activities of Daily Living 09/03/20252348 by Damaris Cunningham, RN Outcome: Ongoing, Progressing 09/03/20252348 by Damaris Cunningham, RN Outcome: Ongoing, Progressing Intervention: Promote Activity and Functional Assumption Flowsheets Taken 09/03/20251999 by Damaris Cunningham, RN Activity Assistance Provided: assistance, 1 person Taken 09/03/20251803 by Catalina Andrade, FILIBERTO Adaptive Equipment Use: use encouraged Self-Care Promotion: [...] Goal (Individualized) Flowsheets (Taken 09/03/20251743 by Andrés Godwin, FILIBERTO) Patient/Family-Specific Goals (Include Timeframe): Patient will verbalize [...] Daily Living Intervention: Promote Activity and Functional Assumption Flowsheets (Taken 09/03/20251803) Activity Assistance Provided: assistance, [...] by: Nathalia Oshea PA Consult ordered by: Emani Cunningham DO Reason for consult: Pre anesthesia evaluation and optimization Reason For Consult Pre anesthesia evaluation and optimization Requesting Service: [facility] Requested Date/Time: 09/03/25 History Of Present Illness [...] fall. She remains active, goes to the [facility] and walks for exercise and cares for her blind . No chest pain. Last follow up with [facility] in 2023, was doing well and ECHO [...] procedure. Nathalia Oshea PA-C Department of Anesthesia [phone] [1] Past Medical History: Diagnosis Date Acute [...] mL 10 mL Intravenous q12h Audelia Roca, DO And [Transfer Hold] sodium chloride 0.9 % [...] limited activity Home living situation: lives in [place] REVIEW OF SYSTEMS Constitutional: No fever, weight [...] fracture. Degenerative changes and demineralization as described. [place] hyperdense structure in the region of the [...] 09/03/2025 10:35 AM ESTAssociated Order(s): Consult to [facility] Images from the original note were not included. GME Fragility Fracture History & Physical Consult to [facility] Consult performed by: Audelia Roca DO Consult ordered by: Dominick Curtis MD Subjective 09/03/2025 Chief Complaint: Chief Complaint Patient presents with Fall History Of Present Illness Rachel Roger is a 85 y.o. female with a PMHx of Aortic Stenosis s/p TAVR 01/19/2022 with a 23mmEdwards valve, CAD s/p PCI to ostial/mid LAD in 2015, hx of [...] she is active and goes to the [facility] regularly. She has no issue with stairs [...] times daily cholecalciferol (Vitamin D-3) 50 MCG (1999) capsule Oral, Daily cyanocobalamin (VITAMIN B-12) 1,000 [...] 09/04/2025 9:57 AM EST Associated attestation - Emani Cunningham DO - 09/04/2025 9:57 AM EST [...] 2021, SAH 2007 who presents to ED [facility] for OSH after a ground level [...] Trauma Floor Consult pager with additional questions: [phone] Araceli Fan PA-C Department of Orthopaedic Surgery and Sports Medicine 09/03/25 9:50 AM Consult Pager: [phone] Service Pager: [phone] [1] Past Medical History: Diagnosis Date Acute [...] Behavior normal. EASI ?? Total Score: 0 [place] Coma Scale Score: 15 Mini Nutritional Screening [...] Morning draw Final result ARACELI FAN 09/03/25 09 CBC W/O Differential Morning draw Final result ARACELI FAN 09/03/25 09 Comprehensive metabolic panel Morning draw Final result ARACELI FAN 09/03/25 1135 Neurovascular checks Every 4 hours x 24 hours Every 4 hours Acknowledged AUDELIA ROCA 09/03/25 1135 Neurovascular checks Every 2 hours x 4 hours Every 2 hours Acknowledged AUDELIA ROCA 09/03/25 1135 Neurovascular checks Every 1 hour x 4 hours Every 1 hour Acknowledged AUDELIA ROCA 09/03/25 1135 Vital Signs Every 6 hours Placed in And Linked Group Acknowledged AUDELIA ROCA 09/03/25 1135 Pulse Oximetry Every 6 hours Placed in And Linked Group Acknowledged AUDELIA ROCA 09/03/25 1135 Do Not Give Nicotine Replacement Until discontinued Acknowledged AUDELIA ROCA 09/03/25 1135 Mobility Orders Until discontinued Acknowledged AUDELIA ROCA 09/03/25 1135 Reason for no VTE Prophylaxis - hospital admission - mechanical Once Comments: Upcoming procedure Completed AUDELIA ROCA 09/03/25 1135 Notify Provider Until discontinued Acknowledged AUDELIA ROCA 09/03/25 1135 For POC BG 71 - [...] repeat if necessary until POC BG >100. Acknowledged AUDELIA ROCA 09/03/25 1135 Admit to inpatient Once Completed AUDELIA ROCA 09/03/25 1135 Notify physician (specify parameters) Until discontinued Acknowledged AUDELIA ROCA 09/03/25 1135 Insert peripheral IV Once Placed in And Linked Group Acknowledged AUDELIA ROCA 09/03/25 1135 Saline lock IV Once Placed in And Linked Group Acknowledged AUDELIA ROCA 09/03/25 1135 Inpatient consult to Anesthesia Once Comments: Ortho team will call-coordinate for Anesthesia. If patient non-operative, please cancel the consult. Thanks Specialty: Anesthesiology Provider: (Not yet assigned) AUDELIA Gutierrez 09/03/25 1135 Inpatient consult to Bone Mineral Metabolism Once Specialty: Nephrology Provider: (Not yet assigned) Completed AUDELIA ROCA 09/03/25 1135 Vitamin D 25 hydroxy Once Final result AUDELIA ROCA 09/03/25 1135 PTH Panel 1 Once Final result AUDELIA ROCA 09/03/25 1135 Protein electrophoresis, serum Once In process AUDELIA ROCA 09/03/25 1135 Bone Specific Alkaline Phosphatase Once In process AUDELIA ROCA 09/03/25 1135 Comprehensive Metabolic Panel, Plasma Once Final result AUDELIA ROCA 09/03/25 1135 Phosphorus, Plasma Once Final result AUDELIA ROCA 09/03/25 1135 Magnesium, Plasma Once Final result AUDELIA ROCA 09/03/25 1135 Provide patient education materials Once Comments: Fall prevention & Osteoporosis Acknowledged AUDELIA ROCA 09/03/25 1135 Nurse to complete Until discontinued [...] -Ensure lights and TV are off after 2100 -Offer earplugs if noise interfering with sleep (if available) -Offer fluids q2h between 0800 & 2100 -Assess daily by 1200 if cardiac telemetry can be discontinued -Facilitate family visit or phone call daily -Notify primary team of uncontrolled pain if applicable -Participate in maximum level of mobility as directed by PT/OT -Offer warm beverage (milk or decaffeinated tea) at 2100 AUDELIA Estrada 09/03/25 1135 Provide patient education materials Once Comments: RN to provide delirium material from patient education tab to Family. AUDELIA Estrada 09/03/25 1135 Full code Continuous AUDELIA Estrada 09/03/25 1135 PTH Intact Total PROCEDURE ONCE Final result AUDELIA ROCA 09/03/25 1135 Ionized calcium, serum PROCEDURE ONCE Final result AUDELIA ROCA 09/03/25 1135 Protein Electrophoresis, Serum PROCEDURE ONCE In process AUDELIA ROCA 09/03/25 0831 Diet effective now Canceled AUDREY GUZMAN 09/03/25 1031 Once Canceled ARACELI FAN 09/03/25 1029 Consult to [facility] Medicine - Thomas Once Specialty: Internal Medicine [...] 1023 Inpatient consult to Anesthesia Once Comments: [id number] - Page the Anesthesia Acute Pain Service: [phone]; - Call the [facility] Rn Integrity: [phone]. Specialty: Anesthesiology Provider: (Not yet assigned) Acknowledged ARACELI FAN 09/03/25 1023 Nursing communication Contact TAVIA to move patient to 9.200 Lincoln Bed vs PACU bed based on availability of bed and anesthesia personnel. Prioritize 9.200 [address] Bed post-block Once Comments: Contact TAVIA to move patient to 9.200 Lincoln Bed vs PACU bed based on availability of bed and anesthesia personnel. Prioritize 9.200 Lincoln Bed post-block Acknowledged RAACELI FAN 09/03/25 0922 XR Chest 1 View [...] admission. ED Course as of 09/04/25 0953 WedSep 03, 2025 0959 Creatinine(!): 3.17 Per chart [...] None Disposition Admit Admitting/Attending Physician: EMANI CUNNINGHAM [[id number]] Provider Care Team: FRAGILITY FRACTURE [[id number]] Are [...] concerned for L hip fx, sent to [facility] for further evaluation. Pt GCS 15 and VSS uponarrival. documented in this encounter Plan of Treatment Upcoming Encounters Date Type Department Care Team (Late st Contact Info) Description 09/25/2025 12:30 PM EST Office Visit [facility] [address], [address] [place] [address] Sarah Hunter PA [address] [place] [address] 10/24/2025 8:00 AM EST Appointment [facility] [address], [address] [place] [address] 10/24/2025 8:40 AM EST Office Visit [facility] [address], [address] [place] [address] Jose Antonio Hernández MD [address] [facility] [address] [place] [address] 11/21/2025 3:00 PM EST Office Visit [facility] [address], [address] [place] [address] Aime Mcelroy MD [address] [place] [address] Pending Results Name Type Priority [...] - 4.5 mg/dL 09/07/2025 5:02 AM EST [facility] Blood Venous blood specimen / Unknown Venipuncture / Unknown 09/07/2025 4:21 AM EST 09/07/2025 4:32 AM EST Renu Barros MD LAB BLOOD ORDERABLES Final Resul t [facility] [address] [place] [address] * Magnesium, Plasma (09/07/2025 4:21 AM EST) Magnesium, Plasma 2.1 1.9 - 2.4 mg/dL 09/07/2025 5:02 AM EST [facility] Blood Venous blood specimen / Unknown Venipuncture / Unknown 09/07/2025 4:21 AM EST 09/07/2025 4:32 AM EST us Renu Barros MD LAB BLOOD ORDERABLES Final Resul t Performing Organization Address City/[facility]/ZIP Co de Phone Number [facility] [address] [place] [address] * (ABNORMAL) Comprehensive Metabolic Panel, Plasma (09/07/2025 4:21 AM EST) Glucose, Plasma 94 74 - 99 mg/dL 09/07/2025 5:02 AM EST [facility] BUN, Plasma 54(H) 8 - 23 mg/dL 09/07/2025 5:02 AM EST [facility] Creatinine, Plasma 2.25(H) 0.60 - 1.10 mg/dL 09/07/2025 5:02 AM EST [facility] BUN/Creatinine Ratio 24 09/07/2025 5:02 AM EST [facility] Sodium, Plasma 127(L) 136 - 145 mmol/L 09/07/2025 5:02 AM EST [facility] Potassium, Plasma 4.2 3.6 - 4.9 mmol/L 09/07/2025 5:02 AM EST [facility] Chloride, Plasma 96(L) 97 - 107 mmol/L 09/07/2025 5:02 AM EST [facility] CO2, Plasma 23 22 - 29 mmol/L 09/07/2025 5:02 AM EST [facility] Anion Gap 8 6 - 16 mmol/L 09/07/2025 5:02 AM EST [facility] Total Calcium, Plasma 7.2(L) 8.9 - 10.2 mg/dL 09/07/2025 5:02 AM EST [facility] Total Protein 3.9(L) 6.3 - 7.9 g/dL 09/07/2025 5:02 AM [facility] Albumin, Plasma 2.3(L) 3.5 - 5.2 g/dL 09/07/2025 5:02 AM EST [facility] AST, Plasma 32 10 - 35 U/L 09/07/2025 5:02 AM EST [facility] ALT, Plasma <5(L) 10 - 35 U/L 09/07/2025 5:02 AM [facility] Alkaline Phosphatase, Plasma 37(L) 46 - 142 U/L 09/07/2025 5:02 AM [facility] Total Bilirubin, Plasma 0.6 0.2 - 1.1 mg/dL 09/07/2025 5:02 AM [facility] eGFRcr 21.2 mL/min/1.7 3m*2 09/07/2025 5:02 AM [facility] Comment:Reported eGFRcr in m L/min/1.73m2 is based the CKD-EPI 2020 equation that does not use a race coefficient. Blood Venous blood specimen / Unknown Venipuncture / Unknown 09/07/2025 4:21 AM EST 09/07/2025 4:32 AM EST us Renu Barros MD LAB BLOOD ORDERABLES Final Resul t [facility] [address] [place] [address] * (ABNORMAL) CBC W/O Differential (09/07/2025 4:21 AM EST) WBC Count 4.34 3.70 - 10.30 10*3/uL LAB HEMATOLOGY METHOD 09/07/2025 4:45 AM EST [facility] RBC Count 2.56(L) 3.90 - 5.20 10*6/uL LAB HEMATOLOGY METHOD 09/07/2025 4:45 AM EST [facility] HGB 7.6(L) 11.2 - 15.7 g/dL LAB HEMATOLOGY METHOD 09/07/2025 4:45 AM EST [facility] HCT 22.2(L) 34.0 - 45.0 % LAB HEMATOLOGY METHOD 09/07/2025 4:45 AM EST [facility] Platelet Count 53(L) 155 - 369 10*3/uL LAB HEMATOLOGY METHOD 09/07/2025 4:45 AM EST [facility] MCV 87 79 - 98 fL LAB HEMATOLOGY METHOD 09/07/2025 4:45 AM EST [facility] MCH 29.7 26.0 - 32.0 pg LAB HEMATOLOGY METHOD 09/07/2025 4:45 AM EST [facility] MCHC 34.2 30.7 - 35.5 g/dL LAB HEMATOLOGY METHOD 09/07/2025 4:45 AM EST [facility] RDW 14.6(H) 11.5 - 14.5 % LAB HEMATOLOGY METHOD 09/07/2025 4:45 AM EST [facility] MPV LAB HEMATOLOGY METHOD 09/07/2025 4:45 AM EST [facility] Comment:Not Measured nRBC 0.0 <=0.0 per 100 WBCs LAB HEMATOLOGY METHOD 09/07/2025 4:45 AM EST [facility] Blood Venous blood specimen / Unknown Venipuncture / Unknown 09/07/2025 4:21 AM EST 09/07/2025 4:33 AM EST us Renu Barros MD LAB BLOOD ORDERABLES Final Resul t [facility] [address] [place] [address] * Potassium (09/06/2025 3:17 PM EST) Potassium, Plasma 4.5 3.6 - 4.9 mmol/L 09/06/2025 11:36 PM EST [facility] Blood Venous blood specimen / Unknown Venipuncture / Unknown 09/06/2025 3:17 PM EST 09/06/2025 3:49 PM EST us Renu Barros MD LAB BLOOD ORDERABLES Final Resul t [facility] [address] [place] [address] * (ABNORMAL) CBC and differential (09/06/2025 3:17 PM EST) Pathologist [facility] WBC Count 6.05 3.70 - 10.30 10*3/uL LAB HEMATOLOGY METHOD 09/06/2025 4:09 PM EST [facility] RBC Count 3.27(L) 3.90 - 5.20 10*6/uL LAB HEMATOLOGY METHOD 09/06/2025 4:09 PM EST [facility] HGB 9.8(L) 11.2 - 15.7 g/dL LAB HEMATOLOGY METHOD 09/06/2025 4:09 PM EST [facility] HCT 28.9(L) 34.0 - 45.0 % LAB HEMATOLOGY METHOD 09/06/2025 4:09 PM EST [facility] Platelet Count 63(L) 155 - 369 10*3/uL LAB HEMATOLOGY METHOD 09/06/2025 4:09 PM EST [facility] MCV 88 79 - 98 fL LAB HEMATOLOGY METHOD 09/06/2025 4:09 PM EST [facility] MCH 30.0 26.0 - 32.0 pg LAB HEMATOLOGY METHOD 09/06/2025 4:09 PM EST [facility] MCHC 33.9 30.7 - 35.5 g/dL LAB HEMATOLOGY METHOD 09/06/2025 4:09 PM EST [facility] RDW 14.1 11.5 - 14.5 % LAB HEMATOLOGY METHOD 09/06/2025 4:09 PM EST [facility] MPV LAB HEMATOLOGY METHOD 09/06/2025 4:09 PM EST [facility] Comment:Not Measured nRBC 0.0 <=0.0 per 100 WBCs LAB HEMATOLOGY METHOD 09/06/2025 4:09 PM [facility] Differential Type Automated LAB HEMATOLOGY METHOD 09/06/2025 4:09 PM [facility] Neutrophils % 82 % LAB HEMATOLOGY METHOD 09/06/2025 4:09 PM [facility] Lymphocytes % 10 % LAB HEMATOLOGY METHOD 09/06/2025 4:09 PM [facility] Monocytes % 7 % LAB HEMATOLOGY METHOD 09/06/2025 4:09 PM [facility] Eosinophils % 1 % LAB HEMATOLOGY METHOD 09/06/2025 4:09 PM [facility] Basophils % 0 % LAB HEMATOLOGY METHOD 09/06/2025 4:09 PM [facility] Immature Granulocytes % 0 % LAB HEMATOLOGY METHOD 09/06/2025 4:09 PM [facility] Neutrophils Absolute 4.96 1.60 - 6.10 10*3/uL LAB HEMATOLOGY METHOD 09/06/2025 4:09 PM [facility] Lymphocytes Absolute 0.60(L) 1.20 - 3.90 10*3/uL LAB HEMATOLOGY METHOD 09/06/2025 4:09 PM [facility] Monocytes Absolute 0.40 0.30 - 0.90 10*3/uL LAB HEMATOLOGY METHOD 09/06/2025 4:09 PM [facility] Eosinophils Absolute 0.06 0.00 - 0.50 10*3/uL LAB HEMATOLOGY METHOD 09/06/2025 4:09 PM [facility] Basophils Absolute 0.01 0.00 - 0.10 10*3/uL LAB HEMATOLOGY METHOD 09/06/2025 4:09 PM [facility] Immature Granulocytes Absolute 0.02 0.00 - 0.06 10*3/uL LAB HEMATOLOGY METHOD 09/06/2025 4:09 PM [facility] Blood Venous blood specimen / Unknown Venipuncture / Unknown 09/06/2025 3:17 PM EST 09/06/2025 3:46 PM EST [facility] - 09/06/2025 4:09 PM EST Therapeutic decision making should be based on absolute values, rather than percentages. us Renu Barros MD LAB BLOOD ORDERABLES Final Resul t [facility] [address] [place] [address] * (ABNORMAL) Sodium (09/06/2025 3:17 PM EST) Sodium, Plasma 125(L) 136 - 145 mmol/L 09/06/2025 4:15 PM EST [facility] Blood Venous blood specimen / Unknown Venipuncture / Unknown 09/06/2025 3:17 PM EST 09/06/2025 3:49 PM EST Renu Barros MD LAB BLOOD ORDERABLES Final Resul t Performing Organization Address [facility] Co de Phone Number [facility] [address] [place] [address] * Transfuse RBC (09/06/2025 1:35 PM EST) Renu Barros MD BLOOD TRANSFUSION ORDERABLES Fin al Result * Transfuse RBC: 1 Units (09/06/2025 1:35 PM EST) Renu Barros MD BLOOD TRANSFUSION ORDERABLES Fin al Result * Prepare Leukocyte Reduced RBC: 1 Units (09/06/2025 7:07 AM EST) Product Code [id number] BLOO D BANK Dispense Status Transfused BLOOD BANK Blood Expiration Date [id number] BLOOD BANK Unit Number [id number] B LOOD BANK Product Blood Type 6200 BLOOD BANK Blood Type A+ BLOOD BANK Crossmatch Compatible BLOOD BANK Other Renu Barros MD BLOOD BANK PRODUCT ORDERABLES Fi nal Result Performing Organization Address City/[facility] Co de Phone Number BLOOD BANK [address] [place] [address], [place] * (ABNORMAL) CBC W/O Differential (09/06/2025 4:06 AM EST) WBC Count 5.69 3.70 - 10.30 10*3/uL LAB HEMATOLOGY METHOD 09/06/2025 4:58 AM EST [facility] RBC Count 2.19(L) 3.90 - 5.20 10*6/uL LAB HEMATOLOGY METHOD 09/06/2025 4:58 AM EST [facility] HGB 6.5(L) 11.2 - 15.7 g/dL LAB HEMATOLOGY METHOD 09/06/2025 4:58 AM EST [facility] HCT 19.5(L) 34.0 - 45.0 % LAB HEMATOLOGY METHOD 09/06/2025 4:58 AM EST [facility] Platelet Count 58(L) 155 - 369 10*3/uL LAB HEMATOLOGY METHOD 09/06/2025 4:58 AM EST [facility] MCV 89 79 - 98 fL LAB HEMATOLOGY METHOD 09/06/2025 4:58 AM EST [facility] MCH 29.7 26.0 - 32.0 pg LAB HEMATOLOGY METHOD 09/06/2025 4:58 AM EST [facility] MCHC 33.3 30.7 - 35.5 g/dL LAB HEMATOLOGY METHOD 09/06/2025 4:58 AM EST [facility] RDW 14.5 11.5 - 14.5 % LAB HEMATOLOGY METHOD 09/06/2025 4:58 AM EST [facility] MPV LAB HEMATOLOGY METHOD 09/06/2025 4:58 AM EST [facility] Comment:Not Measured nRBC 0.0 <=0.0 per 100 WBCs LAB HEMATOLOGY METHOD 09/06/2025 4:58 AM EST [facility] Blood Venous blood specimen / Unknown Venipuncture / Unknown 09/06/2025 4:06 AM EST 09/06/2025 4:45 AM EST us Renu Barros MD LAB BLOOD ORDERABLES Final Resul t [facility] [address] [place] [address] * (ABNORMAL) Renal function panel (09/06/2025 4:06 AM EST) Glucose, Plasma 90 74 - 99 mg/dL 09/06/2025 6:07 AM EST [facility] BUN, Plasma 47(H) 8 - 23 mg/dL 09/06/2025 6:07 AM EST [facility] Creatinine, Plasma 2.84(H) 0.60 - 1.10 mg/dL 09/06/2025 6:07 AM EST [facility] BUN/Creatinine Ratio 17 09/06/2025 6:07 AM EST [facility] Sodium, Plasma 123(L) 136 - 145 mmol/L 09/06/2025 6:07 AM EST [facility] Potassium, Plasma 4.9 3.6 - 4.9 mmol/L 09/06/2025 6:07 AM EST [facility] Chloride, Plasma 95(L) 97 - 107 mmol/L 09/06/2025 6:07 AM EST [facility] CO2, Plasma 20(L) 22 - 29 mmol/L 09/06/2025 6:07 AM EST [facility] Anion Gap 8 6 - 16 mmol/L 09/06/2025 6:07 AM EST [facility] Total Calcium, Plasma 7.5(L) 8.9 - 10.2 mg/dL 09/06/2025 6:07 AM EST [facility] Phosphorus, Plasma 2.6 2.5 - 4.5 mg/dL 09/06/2025 6:07 AM EST [facility] Albumin, Plasma 2.8(L) 3.5 - 5.2 g/dL 09/06/2025 6:07 AM EST [facility] eGFRcr 16.0 mL/min/1.7 3m*2 09/06/2025 6:07 AM EST [facility] Comment:Reported eGFRcr in m L/min/1.73m2 is based the CKD-EPI 2020 equation that does not use a race coefficient. Blood Venous blood specimen / Unknown Venipuncture / Unknown 09/06/2025 4:06 AM EST 09/06/2025 4:40 AM EST us Renu Barros MD LAB BLOOD ORDERABLES Final Resul t [facility] [address] [place] [address] * (ABNORMAL) POCT glucose meter (09/05/2025 1:43 PM EST) [facility] POCT Glucose 138(H) 74 - 99 mg/dL 09/05/2025 8:01 PM EST [facility] Comment:Accuracy of a glucos [...] 09/05/2025 8:01 PM EST [facility] Food Selector ID Lisette Decker 09/05/20 25 8:01 PM EST [facility] Device ID [id number] 09/05/2025 8:01 PM EST [facility] Specimen Type POC Capillary 09/05/2025 8:01 PM EST [facility] Blood Capillary blood specimen / Unknown 09/05/2025 1:43 PM EST 09/05/2025 8:01 PM EST Renu Barros MD LAB POINT OF CARE TE ST DOCKED DEVICE UNSOLICITED RESULTS Final Result [facility] [address] [place] [address] * (ABNORMAL) POCT glucose meter (09/05/2025 12:44 PM EST) [facility] POCT Glucose 120(H) 74 - 99 mg/dL 09/05/2025 12:46 PM EST [facility] Comment:Accuracy of [...] for testing. Comment 09/05/2025 12:46 PM EST [facility] Food Selector ID Halley Jaimes 025 12:46 PM EST [facility] Device ID [id number] 09/05/2025 12:46 PM EST [facility] Specimen Type POC Capillary 09/05/2025 12:46 PM EST [facility] Blood Capillary blood specimen / Unknown 09/05/2025 12:44 PM EST 09/05/2025 12:46 PM EST Renu Barros MD LAB POINT OF CARE TE ST DOCKED DEVICE UNSOLICITED RESULTS Final Result Performing Organization Address [facility] de Phone Number [facility] [address] [place] [address] * (ABNORMAL) POCT glucose meter (09/05/2025 11:37 [...] for testing. Comment 09/05/2025 11:39 AM EST [facility] Food Selector ID Lisette Decker 09/05/20 11:39 AM EST [facility]ARE LAB Device ID [id number] 09/05/2025 11:39 AM EST [facility] Specimen Type POC Capillary 09/05/2025 11:39 AM EST [facility] Blood Capillary blood specimen / Unknown 09/05/2025 11:37 AM EST 09/05/2025 11:39 AM EST Renu Barros MD LAB POINT OF CARE TE ST DOCKED DEVICE UNSOLICITED RESULTS Final Result Performing Organization Address City/[facility] Co de Phone Number [facility] [address] [place] [address] * (ABNORMAL) POCT glucose meter (09/05/2025 10:43 AM EST) POCT Glucose 132(H) 74 - 99 mg/dL [...] for testing. Comment 09/05/2025 10:44 AM EST [facility] Food Selector ID Lisette Decker 09/05/20 10:44 AM EST [facility] Device ID [id number] 09/05/2025 10:44 AM EST [facility] Specimen Type POC Capillary 09/05/2025 10:44 AM EST [facility] Blood Capillary blood specimen / Unknown 09/05/2025 10:43 AM EST 09/05/2025 10:44 AM EST Renu Barros MD LAB POINT OF CARE TE ST DOCKED DEVICE UNSOLICITED RESULTS Final Result Performing Organization Address City/[facility]/ZIP Co de Phone Number [facility] [address] [place] [address] * POCT glucose meter (09/05/2025 9:42 AM EST) [facility] POCT Glucose 76 74 - 99 mg/dL 09/05/2025 9:43 AM EST [facility] Comment:Accuracy of a glucos e result [...] for testing. Comment 09/05/2025 9:43 AM EST [facility] Food Selector ID Halley Jaimes 025 9:43 AM EST [facility] Device ID [id number] 09/05/2025 9:43 AM EST [facility] Specimen Type POC Capillary 09/05/2025 9:43 AM EST [facility] Blood Capillary blood specimen / Unknown 09/05/2025 9:42 AM EST 09/05/2025 9:43 AM EST Renu Barros MD LAB POINT OF CARE TE ST DOCKED DEVICE UNSOLICITED RESULTS Final Result Performing Organization Address City/[facility]/ZIP Co de Phone Number [facility] [address] [place] [address] * Potassium (09/05/2025 9:38 AM EST) Potassium, Plasma 4.8 3.6 - 4.9 mmol/L 09/05/2025 10:06 AM EST [facility] Blood Venous blood specimen / Unknown Venipuncture / Unknown 09/05/2025 9:38 AM EST 09/05/2025 9:46 AM EST us Renu Barros MD LAB BLOOD ORDERABLES Final Resul t [facility] [address] [place] [address] * (ABNORMAL) Basic metabolic panel (09/05/2025 12:56 AM EST) Glucose, Plasma 125(H) 74 - 99 mg/dL 09/05/2025 1:33 AM EST [facility] BUN, Plasma 38(H) 8 - 23 mg/dL 09/05/2025 1:33 AM EST [facility] Creatinine, Plasma 3.15(H) 0.60 - 1.10 mg/dL 09/05/2025 1:33 AM EST [facility] BUN/Creatinine Ratio 12 09/05/2025 1:33 AM EST [facility] Sodium, Plasma 127(L) 136 - 145 mmol/L 09/05/2025 1:33 AM EST [facility] Potassium, Plasma 5.8(H) 3.6 - 4.9 mmol/L 09/05/2025 1:33 AM EST [facility] Chloride, Plasma 97 97 - 107 mmol/L 09/05/2025 1:33 AM EST [facility] CO2, Plasma 22 22 - 29 mmol/L 09/05/2025 1:33 AM EST [facility] Anion Gap 8 6 - 16 mmol/L 09/05/2025 1:33 AM EST [facility] Total Calcium, Plasma 7.6(L) 8.9 - 10.2 mg/dL 09/05/2025 1:33 AM EST [facility] eGFRcr 14.1 mL/min/1.7 3m*2 09/05/2025 1:33 AM EST [facility] Comment:Reported eGFRcr in m L/min/1.73m2 is based the CKD-EPI 2020 equation that does not use a race coefficient. Blood Venous blood specimen / Unknown Venipuncture / Unknown 09/05/2025 12:56 AM EST 09/05/2025 1:01 AM EST us Jose Antonio Hernández MD LAB BLOOD ORDERABLES Final R esult [facility] [address] [place] [address] * (ABNORMAL) CBC (09/05/2025 12:56 AM EST) WBC Count 7.60 3.70 - 10.30 10*3/uL LAB HEMATOLOGY METHOD 09/05/2025 3:19 AM EST [facility] RBC Count 2.61(L) 3.90 - 5.20 10*6/uL LAB HEMATOLOGY METHOD 09/05/2025 3:19 AM EST [facility] HGB 7.9(L) 11.2 - 15.7 g/dL LAB HEMATOLOGY METHOD 09/05/2025 3:19 AM EST [facility] HCT 23.4(L) 34.0 - 45.0 % LAB HEMATOLOGY METHOD 09/05/2025 3:19 AM EST [facility] Platelet Count 64(L) 155 - 369 10*3/uL LAB HEMATOLOGY METHOD 09/05/2025 3:19 AM EST [facility] MCV 90 79 - 98 fL LAB HEMATOLOGY METHOD 09/05/2025 3:19 AM EST [facility] MCH 30.3 26.0 - 32.0 pg LAB HEMATOLOGY METHOD 09/05/2025 3:19 AM EST [facility] MCHC 33.8 30.7 - 35.5 g/dL LAB HEMATOLOGY METHOD 09/05/2025 3:19 AM EST [facility] RDW 14.5 11.5 - 14.5 % LAB HEMATOLOGY METHOD 09/05/2025 3:19 AM EST [facility] MPV LAB HEMATOLOGY METHOD 09/05/2025 3:19 AM EST [facility] Comment:Not Measured nRBC 0.0 <=0.0 per 100 WBCs LAB HEMATOLOGY METHOD 09/05/2025 3:19 AM EST [facility] Blood Venous blood specimen / Unknown Venipuncture / Unknown 09/05/2025 12:56 AM EST 09/05/2025 1:01 AM EST us Jose Antonio Hernández MD LAB BLOOD ORDERABLES Final R esult [facility] [address] [place] [address] * XR Femur Left 2+ Views (09/04/2025 [...] in the patient's chart for the findings. us Jose Antonio Hernández MD IMG FLUOROSCOPY PROCEDURES F inal Result IMAGING * Transfuse RBC (09/04/2025 11:04 AM EST) us Vaishnavi Rosales CRNA BLOOD TRANSFUSION ORDERABLES Final Result * (ABNORMAL) POCT arterial blood gas gem (09/04/2025 10:56 AM EST) pH, Arterial 7.39 7.31 - 7.42 09/05/2025 2:30 PM EST [facility] pCO2, Arterial 41 35 - 48 mm Hg 09/05/2025 2:30 PM EST [facility] pO2, Arterial 80 >60 mm Hg 09/05/2025 2:30 PM EST [facility] SO2, Arterial 98 94 - 98 % 09/05/2025 2:30 PM EST [facility] FIO2 70.0 % 09/05/2025 2:30 PM EST [facility] Base Excess, Arterial -0.2 -2 - 3 mmol/L 09/05/2025 2:30 PM EST [facility] HCO3, Arterial 24.8 22 - 26 mmol/L 09/05/2025 2:30 PM EST [facility] Total Hemoglobin, Arterial, Whole Blood 7.8(L) 11.2 - 15.7 g/dL 09/05/2025 2:30 PM EST [facility] Hematocrit, Arterial 23.0(L) 34.0 - 45.0 % 09/05/2025 2:30 PM EST [facility] Sodium, Arterial 127(L) 136 - 145 mmol/L 09/05/2025 2:30 PM EST [facility] Potassium, Arterial 5.1(H) 3.6 - 4.9 mmol/L 09/05/2025 2:30 PM EST [facility] Chloride, Whole Blood 101 97 - 107 mmol/L 09/05/2025 2:30 PM EST [facility] Glucose, Arterial 104(H) 74 - 99 mg/dL 09/05/2025 2:30 PM EST [facility] Ionized Calcium, Arterial 5.0 4.6 - 5.1 mg/dL 09/05/2025 2:30 PM EST [facility] Lactate, Arterial 0.6 0.5 - 1.6 mmol/L 09/05/2025 2:30 PM EST [facility] Body Temperature 37.0 Celsius 09/05/2025 2:30 PM EST [facility] pH, Temp Corrected, Arterial 7.39 7.31 - 7.42 09/05/2025 2:30 PM EST [facility] pCO2, Temp Corrected, Arterial 41 35 - 48 mm Hg 09/05/2025 2:30 PM EST [facility] LAB pO2, Temp Corrected, Arterial 80 >60 mm Hg 09/05/2025 2:30 PM EST [facility] Food Selector ID Vaishnavi Rosales 09/05/2025 2:30 PM EST [facility] Blood, Arterial Whole blood specimen / Unknown 09/04/2025 10:56 AM EST 09/05/2025 2:30 PM EST Renu Barros MD LAB POINT OF CARE TE ST DOCKED DEVICE UNSOLICITED RESULTS Final Result Performing Organization Address City/State/[facility] Co de Phone Number [facility] [address] [place] [address] * ECG Adult (09/04/2025 9:58 AM EST) EKG DIAGNOSIS CLASS Abnormal MUSE ECG Ventricular Rate 65 BPM MUSE ECG Atrial Rate [address] Interval 172 ms MUSE ECG QRSD Interval 84 ms MUSE ECG QT Interval 448 ms MUSE ECG QTC Interval 465 ms MUSE ECG P Enders 41 degrees MUSE ECG R Enders -13 degrees MUSE ECG T Wave Enders 100 degrees MUSE ECG Diagnosis Sinus rhythm with marked sinus arrhythmia MUSE ECG Diagnosis Minimal voltage criteria for LVH, may be normal variant ( Sokolow-Lin ) MUSE ECG Diagnosis Septal infarct , age undetermined MUSE ECG Diagnosis Abnormal ECG MUSE ECG Diagnosis MUSE ECG Diagnosis Confirmed by William Richmond ([id number]) on 09/04/2025 10:16:03 AM MUSE ECG 09/04/2025 9:58 AM EST 09/04/2025 10:16 AM EST us Quang Rodriguez MD ECG ORDERABLES Final Result MUSE ECG * Lavender Top (09/04/2025 9:00 AM EST) Extra Hold for add-ons 09/04/2025 12:01 PM EST [facility] Comment:Auto resulted. Blood Venous blood specimen / Unknown 09/04/2025 9:00 AM EST 09/04/2025 9:07 AM EST us Renu Barros MD LAB BLOOD ORDERABLES Final Resul t Performing Organization Address City/[facility]/ZIP Co de Phone Number [facility] [address] [place] [address] * (ABNORMAL) Renal function panel (09/04/2025 9:00 AM EST) Glucose, Plasma 101(H) 74 - 99 mg/dL 09/04/2025 9:38 AM EST [facility] BUN, Plasma 37(H) 8 - 23 mg/dL 09/04/2025 9:38 AM EST [facility] Creatinine, Plasma 3.16(H) 0.60 - 1.10 mg/dL 09/04/2025 9:38 AM EST [facility] BUN/Creatinine Ratio 12 09/04/2025 9:38 AM EST [facility] Sodium, Plasma 129(L) 136 - 145 mmol/L 09/04/2025 9:38 AM EST [facility] Potassium, Plasma 5.4(H) 3.6 - 4.9 mmol/L 09/04/2025 9:38 AM EST [facility] Chloride, Plasma 98 97 - 107 mmol/L 09/04/2025 9:38 AM EST [facility] CO2, Plasma 23 22 - 29 mmol/L 09/04/2025 9:38 AM EST [facility] Anion Gap 8 6 - 16 mmol/L 09/04/2025 9:38 AM EST [facility] Total Calcium, Plasma 8.4(L) 8.9 - 10.2 mg/dL 09/04/2025 9:38 AM EST [facility] Phosphorus, Plasma 3.4 2.5 - 4.5 mg/dL 09/04/2025 9:38 AM EST [facility] Albumin, Plasma 3.3(L) 3.5 - 5.2 g/dL 09/04/2025 9:38 AM EST [facility] eGFRcr 14.1 mL/min/1.7 3m*2 09/04/2025 9:38 AM EST [facility] Comment:Reported eGFRcr in m L/min/1.73m2 is based the CKD-EPI 2020 equation that does not use a race coefficient. Blood Venous blood specimen / Unknown Venipuncture / Unknown 09/04/2025 9:00 AM EST 09/04/2025 9:08 AM EST us Renu Barros MD LAB BLOOD ORDERABLES Final Resul t [facility] [address] [place] [address] * ECHO, ADULT TRANSTHORACIC COMPLETE (09/04/2025 8:40 [...] mm ANTONY ISCV RV Length 63 mm ATNONY ISCV RV s' [place] 12.1 cm/s ANTONY [...] Ao Diam 24 [address] ANTONY ISCV PA CT(ACCEL) 14.2 mmHg ANTONY ISCV LV mean PG [...] there is no significant interval change noted. Emani Cunningham DO CV ECHO PROCEDURES Final Result * (ABNORMAL) POCT glucose meter (09/04/2025 8:01 AM EST) POCT Glucose 106(H) 74 - 99 mg/dL 09/04/2025 8:03 AM EST [facility] Comment:Accuracy of a glucos e result [...] for testing. Comment 09/04/2025 8:03 AM EST [facility] Food Selector ID Lisette Decker 09/04/20 25 8:03 AM EST [facility] Device ID [id number] 09/04/2025 8:03 AM EST [facility] Specimen Type POC Capillary 09/04/2025 8:03 AM EST [facility] Blood Capillary blood specimen / Unknown 09/04/2025 8:01 AM EST 09/04/2025 8:03 AM EST Renu Barros MD LAB POINT OF CARE TE ST DOCKED DEVICE UNSOLICITED RESULTS Final Result Performing Organization Address City/[facility]/ZIP Co de Phone Number [facility] [address] [place] [address] * (ABNORMAL) POCT glucose meter (09/04/2025 6:31 AM EST) POCT Glucose 133(H) 74 - 99 mg/dL 09/04/2025 6:32 AM EST [facility] Comment:Accuracy of [...] for testing. Comment 09/04/2025 6:32 AM EST [facility] Food Selector ID DaveDamaris alanis 025 6:32 AM EST [facility] Device ID [id number] 09/04/2025 6:32 AM EST [facility] Specimen Type POC Capillary 09/04/2025 6:32 AM EST [facility] Blood Capillary blood specimen / Unknown 09/04/2025 6:31 AM EST 09/04/2025 6:32 AM EST Renu Barros MD LAB POINT OF CARE TE ST DOCKED DEVICE UNSOLICITED RESULTS Final Result Performing Organization Address [facility] Co de Phone Number [facility] [address] [place] [address] * POCT glucose meter (09/04/2025 5:59 AM EST) POCT Glucose 87 74 - 99 mg/dL 09/04/2025 6:00 AM EST [facility] Comment:Accuracy of [...] for testing. Comment 09/04/2025 6:00 AM EST [facility] Food Selector ID Tamiko Gottlieb 09/04/2025 6:00 AM EST [facility] Device ID [id number] 09/04/2025 6:00 AM EST [facility] Specimen Type POC Capillary 09/04/2025 6:00 AM EST [facility] Blood Capillary blood specimen / Unknown 09/04/2025 5:59 AM EST 09/04/2025 6:00 AM EST Emani Aníbal SMITH LAB POINT OF CARE TE ST DOCKED DEVICE UNSOLICITED RESULTS Final Result Performing Organization Address [facility] Co de Phone Number [facility] [address] [place] [address] * Methicillin Resistant Staphylococcus aureus (MRSA) by PCR (09/04/2025 5:00 AM EST) Pathologist [facility] Methicillin Resistant Staphylococcus aureus (MRSA) by PCR Not Detected Not Detected 09/04/2025 7:07 AM EST [facility] Swab Both anterior nares / Unknown Non-blood Collection / Unknown 09/04/2025 5:00 AM EST 09/04/2025 5:49 AM EST Narrative [facility] - 09/04/2025 7:07 AM EST This [...] ORDE RABLES Final Result Performing Organization Address [facility] Co de Phone Number [facility] [address] [place] [address] * (ABNORMAL) POCT glucose meter (09/04/2025 4:59 AM EST) Pathologist [facility] POCT Glucose 120(H) 74 - 99 mg/dL 09/04/2025 5:00 AM EST [facility] Comment:Accuracy of a glucos e result [...] testing. Comment 09/04/2025 5:00 AM EST [facility] Food Selector ID Damaris Cunningham 025 5:00 AM EST [facility] Device ID [id number] 09/04/2025 5:00 AM EST [facility] Specimen Type POC Capillary 09/04/2025 5:00 AM EST [facility] Blood Capillary blood specimen / Unknown 09/04/2025 4:59 AM EST 09/04/2025 5:00 AM EST us Emani Cunningham DO LAB POINT OF CARE TE ST DOCKED DEVICE UNSOLICITED RESULTS Final Result Performing Organization Address City/[facility] Co de Phone Number [facility] [address] [place] [address] * (ABNORMAL) POCT glucose meter (09/04/2025 4:03 AM EST) [facility] POCT Glucose 168(H) 74 - 99 mg/dL 09/04/2025 4:05 AM EST [facility] Comment:Accuracy of [...] for testing. Comment 09/04/2025 4:05 AM EST [facility] Food Selector ID Tamiko Gottlieb 09/04/2025 4:05 AM EST [facility] Device ID [id number] 09/04/2025 4:05 AM EST [facility] Specimen Type POC Capillary 09/04/2025 4:05 AM EST [facility] Blood Capillary blood specimen / Unknown 09/04/2025 4:03 AM EST 09/04/2025 4:05 AM EST us Emani Frenchie DO LAB POINT OF CARE TE ST DOCKED DEVICE UNSOLICITED RESULTS Final Result Performing Organization Address City/[facility]/ZIP Co de Phone Number [facility] [address] [place] [address] * (ABNORMAL) Protime-INR (09/04/2025 12:09 AM EST) Prothrombin Time 15.1(H) 12.0 - 14.3 sec LAB COAGULATION METHOD 09/04/2025 12:42 AM EST [facility] INR 1.1 0.9 - 1.1 LAB COAGULATION METHOD 09/04/2025 12:42 AM EST [facility] Blood Venous blood specimen / Unknown Venipuncture / Unknown 09/04/2025 12:09 AM EST 09/04/2025 12:25 AM EST Narrative [facility] - 09/04/2025 12:42 AM EST OPTIMAL INR RANGES FOR PATIENT ON ORAL ANTICOAGULANT THERAPY Prevention of venous thromboembolism INR 2.0 to 3.0 In patients with heart disease: Atrial fibrillation INR 2.0 to 3.0 Valvular heart disease INR 2.0 to 3.0 Tissue heart valves INR 2.0 to 3.0 Mechanical prosthetic valves INR 2.5 to 3.5 Prevention of recurrent SD INR 2.5 to 3.5 us Araceli HERNANDES LAB BLOOD ORDERABLES Final Re sult [facility] [address] [place] [address] * (ABNORMAL) Comprehensive metabolic panel (09/04/2025 12:09 AM EST) Glucose, Plasma 129(H) 74 - 99 mg/dL 09/04/2025 1:01 AM EST [facility] BUN, Plasma 38(H) 8 - 23 mg/dL 09/04/2025 1:01 AM EST [facility] Creatinine, Plasma 3.19(H) 0.60 - 1.10 mg/dL 09/04/2025 1:01 AM EST [facility] BUN/Creatinine Ratio 12 09/04/2025 1:01 AM EST [facility] Sodium, Plasma 128(L) 136 - 145 mmol/L 09/04/2025 1:01 AM EST [facility] Potassium, Plasma 6.0(H) 3.6 - 4.9 mmol/L 09/04/2025 1:01 AM EST [facility] Chloride, Plasma 98 97 - 107 mmol/L 09/04/2025 1:01 AM [facility] CO2, Plasma 22 22 - 29 mmol/L 09/04/2025 1:01 AM EST [facility] Anion Gap 8 6 - 16 mmol/L 09/04/2025 1:01 AM EST [facility] Total Calcium, Plasma 8.0(L) 8.9 - 10.2 mg/dL 09/04/2025 1:01 AM EST [facility] Total Protein 5.2(L) 6.3 - 7.9 g/dL 09/04/2025 1:01 AM [facility] Albumin, Plasma 3.2(L) 3.5 - 5.2 g/dL 09/04/2025 1:01 AM [facility] AST, Plasma 37(H) 10 - 35 U/L 09/04/2025 1:01 AM EST [facility] ALT, Plasma 21 10 - 35 U/L 09/04/2025 1:01 AM EST [facility] Alkaline Phosphatase, Plasma 39(L) 46 - 142 U/L 09/04/2025 1:01 AM [facility] Total Bilirubin, Plasma <0.2(L) 0.2 - 1.1 mg/dL 09/04/2025 1:01 AM [facility] eGFRcr 13.9 mL/min/1.7 3m*2 09/04/2025 1:01 AM [facility] Comment:Reported eGFRcr in m L/min/1.73m2 is based the CKD-EPI 2020 equation that does not use a race coefficient. Blood Venous blood specimen / Unknown Venipuncture / Unknown 09/04/2025 12:09 AM EST 09/04/2025 12:26 AM EST us Araceli HERNANDES LAB BLOOD ORDERABLES Final Re sult [facility] [address] [place] [address] * (ABNORMAL) CBC W/O Differential (09/04/2025 12:09 AM EST) WBC Count 6.75 3.70 - 10.30 10*3/uL LAB HEMATOLOGY METHOD 09/04/2025 1:06 AM EST [facility] RBC Count 2.79(L) 3.90 - 5.20 10*6/uL LAB HEMATOLOGY METHOD 09/04/2025 1:06 AM EST [facility] HGB 8.2(L) 11.2 - 15.7 g/dL LAB HEMATOLOGY METHOD 09/04/2025 1:06 AM EST [facility] HCT 25.5(L) 34.0 - 45.0 % LAB HEMATOLOGY METHOD 09/04/2025 1:06 AM EST [facility] Platelet Count 72(L) 155 - 369 10*3/uL LAB HEMATOLOGY METHOD 09/04/2025 1:06 AM EST [facility] MCV 91 79 - 98 fL LAB HEMATOLOGY METHOD 09/04/2025 1:06 AM EST [facility] MCH 29.4 26.0 - 32.0 pg LAB HEMATOLOGY METHOD 09/04/2025 1:06 AM EST [facility] MCHC 32.2 30.7 - 35.5 g/dL LAB HEMATOLOGY METHOD 09/04/2025 1:06 AM EST [facility] RDW 14.1 11.5 - 14.5 % LAB HEMATOLOGY METHOD 09/04/2025 1:06 AM EST [facility] MPV LAB HEMATOLOGY METHOD 09/04/2025 1:06 AM EST [facility] Comment:Not Measured nRBC 0.0 <=0.0 per 100 WBCs LAB HEMATOLOGY METHOD 09/04/2025 1:06 AM EST [facility] Blood Venous blood specimen / Unknown Venipuncture / Unknown 09/04/2025 12:09 AM EST 09/04/2025 12:31 AM EST us Araceli HERNANDES LAB BLOOD ORDERABLES Final Re sult [facility] [address] [place] [address] * (ABNORMAL) CBC W/O Differential (09/03/2025 5:53 PM EST) WBC Count 7.41 3.70 - 10.30 10*3/uL LAB HEMATOLOGY METHOD 09/03/2025 6:25 PM EST [facility] RBC Count 2.87(L) 3.90 - 5.20 10*6/uL LAB HEMATOLOGY METHOD 09/03/2025 6:25 PM EST [facility] HGB 8.8(L) 11.2 - 15.7 g/dL LAB HEMATOLOGY METHOD 09/03/2025 6:25 PM EST [facility] HCT 26.6(L) 34.0 - 45.0 % LAB HEMATOLOGY METHOD 09/03/2025 6:25 PM EST [facility] Platelet Count 77(L) 155 - 369 10*3/uL LAB HEMATOLOGY METHOD 09/03/2025 6:25 PM EST [facility] MCV 93 79 - 98 fL LAB HEMATOLOGY METHOD 09/03/2025 6:25 PM EST [facility] MCH 30.7 26.0 - 32.0 pg LAB HEMATOLOGY METHOD 09/03/2025 6:25 PM EST [facility] MCHC 33.1 30.7 - 35.5 g/dL LAB HEMATOLOGY METHOD 09/03/2025 6:25 PM EST [facility] RDW 14.1 11.5 - 14.5 % LAB HEMATOLOGY METHOD 09/03/2025 6:25 PM EST [facility] MPV LAB HEMATOLOGY METHOD 09/03/2025 6:25 PM EST [facility] Comment:Not Measured nRBC 0.0 <=0.0 per 100 WBCs LAB HEMATOLOGY METHOD 09/03/2025 6:25 PM EST [facility] Blood Venous blood specimen / Unknown Venipuncture / Unknown 09/03/2025 5:53 PM EST 09/03/2025 6:10 PM EST us Emani Cunningham DO LAB BLOOD ORDERABLES Final Resu lt [facility] [address] [place] [address] * (ABNORMAL) POCT glucose meter (09/03/2025 5:21 PM EST) POCT Glucose 176(H) 74 - 99 mg/dL 09/03/2025 5:23 PM EST [facility] Comment:Accuracy of a glucos [...] for testing. Comment 09/03/2025 5:23 PM EST [facility] Food Selector ID Shanita Knight 09/03/2025 5:23 PM EST [facility] Device ID [id number] 09/03/2025 5:23 PM EST [facility] Specimen Type POC Capillary 09/03/2025 5:23 PM EST [facility] Blood Capillary blood specimen / Unknown 09/03/2025 5:21 PM EST 09/03/2025 5:23 PM EST Emani Cunningham DO LAB POINT OF CARE TE ST DOCKED DEVICE UNSOLICITED RESULTS Final Result Performing Organization Address City/State/[facility] Co de Phone Number [facility] [address] [place] [address] * CT Bony Pelvis (09/03/2025 4:49 PM EST) Anatomical Region Laterality Modality Pelvis Computed Tomogra phy Impressions 09/03/2025 5:01 PM EST Acute comminuted angulated intertrochanteric left femur fracture. Degenerative changes and demineralization as described. [place] hyperdense structure in the region of the [...] present on the initial pelvis radiograph from [facility] on 09/03/2025. This is only partially imaged. Left glutealinjection granulomas. IMPRESSION: Acute comminuted angulated intertrochanteric left femur fracture. Degenerative changes and demineralization as described. [place] hyperdense structure in the region of the [...] - 99 mg/dL 09/03/2025 4:30 PM EST [facility] Comment:Accuracy of a glucos e [...] for testing. Comment 09/03/2025 4:30 PM EST [facility] Food Selector ID Antonia, Abygnandini 09/03/2025 4:30 PM EST [facility] Device ID [id number] 09/03/2025 4:30 PM EST [facility] Specimen Type POC Capillary 09/03/2025 4:30 PM EST [facility] Blood Capillary blood specimen / Unknown 09/03/2025 4:28 PM EST 09/03/2025 4:30 PM EST Emani Cunningham DO LAB POINT OF CARE TE ST DOCKED DEVICE UNSOLICITED RESULTS Final Result Performing Organization Address [facility] Co de Phone Number [facility] [address] [place] [address] * (ABNORMAL) POCT glucose meter (09/03/2025 3:22 PM EST) Pathologist [facility] POCT Glucose 148(H) 74 - 99 mg/dL 09/03/2025 3:23 PM EST [facility] Comment:Accuracy of a glucos [...] for testing. Comment 09/03/2025 3:23 PM EST [facility] Food Selector ID Shanita Knight 09/03/2025 3:23 PM EST [facility] Device ID [id number] 09/03/2025 3:23 PM EST [facility] Specimen Type POC Capillary 09/03/2025 3:23 PM EST [facility] Blood Capillary blood specimen / Unknown 09/03/2025 3:22 PM EST 09/03/2025 3:23 PM EST Emani Cunningham DO LAB POINT OF CARE TE ST DOCKED DEVICE UNSOLICITED RESULTS Final Result Performing Organization Address [facility] de Phone Number [facility] [address] [place] [address] * Protein electrophoresis serum, pathologist interpretation (09/03/2025 3:13 PM EST) Pathologist [facility] Clinical Diagnosis, SPEP Displaced intertrochanteric fracture of left femur, initial encounter for closed fracture 09/05/2025 10:25 AM EST [facility] Interpretation , SPEP There are no significant abnormalities in the protein electrophoretic pattern. 09/05/2025 10:25 AM EST [facility] Pathologist Signature, [facility] Reviewed by: Ishaan Alberto MD 09/05/2025 10:25 AM EST [facility] LAB CP ASR DISCLAIMER No 09/05/2025 10:25 AM EST [facility] Blood Venous blood specimen / Unknown Venipuncture / Unknown 09/03/2025 3:13 PM EST 09/03/2025 4:21 PM EST Emani Cunningham DO LAB PATHOLOGY ORDERABLES Final Result [facility] [address] [place] [address] * Peripheral blood smear, pathologist interpretation (09/03/2025 3:13 PM EST) Clinical Diagnosis, Peripheral Smear Anemia and Thrombocytopenia LAB HEMATOLOGY METHOD 09/04/2025 4:14 PM EST [facility] Interpretation , Peripheral Smear Moderate normocytic anemia with rare target cells. White blood cells are essentially normal in counts and morphology. Moderate thrombocytopenia with occasional giant platelet forms, without significant clumping. 09/04/2025 4:14 PM EST [facility] Pathologist Signature, Peripheral Smear 09/04/2025 4:14 PM EST [facility] Comment:Reviewed by: Ely Cid MD Blood Venous blood specimen / Unknown Venipuncture / Unknown 09/03/2025 3:13 PM EST 09/03/2025 3:31 PM EST Emani Cunningham DO LAB PATHOLOGY ORDERABLES Final Result [facility] [address] [place] [address] * (ABNORMAL) Peripheral Blood Smear (09/03/2025 3:13 PM EST) WBC Count 5.87 3.70 - 10.30 10*3/uL LAB HEMATOLOGY METHOD 09/03/2025 5:28 PM EST [facility] RBC Count 2.53(L) 3.90 - 5.20 10*6/uL LAB HEMATOLOGY METHOD 09/03/2025 5:28 PM EST [facility] HGB 7.8(L) 11.2 - 15.7 g/dL LAB HEMATOLOGY METHOD 09/03/2025 5:28 PM EST [facility] HCT 23.3(L) 34.0 - 45.0 % LAB HEMATOLOGY METHOD 09/03/2025 5:28 PM EST [facility] Platelet Count 69(L) 155 - 369 10*3/uL LAB HEMATOLOGY METHOD 09/03/2025 5:28 PM [facility] MCV 92 79 - 98 fL LAB HEMATOLOGY METHOD 09/03/2025 5:28 PM [facility] MCH 30.8 26.0 - 32.0 pg LAB HEMATOLOGY METHOD 09/03/2025 5:28 PM [facility] MCHC 33.5 30.7 - 35.5 g/dL LAB HEMATOLOGY METHOD 09/03/2025 5:28 PM [facility] RDW 14.1 11.5 - 14.5 % LAB HEMATOLOGY METHOD 09/03/2025 5:28 PM [facility] MPV LAB HEMATOLOGY METHOD 09/03/2025 5:28 PM [facility] Comment:Not Measured Not Chuyita sured nRBC 0.0 <=0.0 per 100 WBCs LAB HEMATOLOGY METHOD 09/03/2025 5:28 PM [facility] Differential Type Automated LAB HEMATOLOGY METHOD 09/03/2025 5:28 PM [facility] Neutrophils % 80 % LAB HEMATOLOGY METHOD 09/03/2025 5:28 PM [facility] Lymphocytes % 9 % LAB HEMATOLOGY METHOD 09/03/2025 5:28 PM [facility] Monocytes % 10 % LAB HEMATOLOGY METHOD 09/03/2025 5:28 PM [facility] Eosinophils % 0 % LAB HEMATOLOGY METHOD 09/03/2025 5:28 PM [facility] Basophils % 0 % LAB HEMATOLOGY METHOD 09/03/2025 5:28 PM [facility] Immature Granulocytes % 1 % LAB HEMATOLOGY METHOD 09/03/2025 5:28 PM [facility] Neutrophils Absolute 4.68 1.60 - 6.10 10*3/uL LAB HEMATOLOGY METHOD 09/03/2025 5:28 PM [facility] Lymphocytes Absolute 0.51(L) 1.20 - 3.90 10*3/uL LAB HEMATOLOGY METHOD 09/03/2025 5:28 PM [facility] Monocytes Absolute 0.56 0.30 - 0.90 10*3/uL LAB HEMATOLOGY METHOD 09/03/2025 5:28 PM [facility] Eosinophils Absolute 0.01 0.00 - 0.50 10*3/uL LAB HEMATOLOGY METHOD 09/03/2025 5:28 PM EST [facility] Basophils Absolute 0.01 0.00 - 0.10 10*3/uL LAB HEMATOLOGY METHOD 09/03/2025 5:28 PM EST [facility] Immature Granulocytes Absolute 0.03 0.00 - 0.06 10*3/uL LAB HEMATOLOGY METHOD 09/03/2025 5:28 PM EST [facility] Blood Venous blood specimen / Unknown Venipuncture / Unknown 09/03/2025 3:13 PM EST 09/03/2025 3:31 PM EST Narrative [facility] - 09/03/2025 5:28 PM EST Therapeutic decision making should be based on absolute values, rather than percentages. [employer] LAB PATHOLOGY ORDERABLES Final Result Performing Organization Address City/[facility]/ZIP Co de Phone Number [facility] [address] [place] [address] * (ABNORMAL) Ferritin (09/03/2025 3:13 PM EST) Ferritin, Serum 169(H) 13 - 150 ng/mL 09/03/2025 4:58 PM EST [facility] Blood Venous blood specimen / Unknown Venipuncture / Unknown 09/03/2025 3:13 PM EST 09/03/2025 4:21 PM EST [employer] LAB BLOOD ORDERABLES Final Resu lt [facility] [address] [place] [address] * (ABNORMAL) Iron & Total Iron Binding Capacity, Plasma (Includes Transferrin) (09/03/2025 3:13 PM EST) Iron, Plasma 21(L) 30 - 160 ug/dL 09/03/2025 4:28 PM EST [facility] Transferrin, Plasma 150(L) 200 - 360 mg/dL 09/03/2025 4:28 PM EST [facility] Total Iron Binding Capacity, Plasma 188(L) 240 - 450 ug/mL 09/03/2025 4:28 PM EST [facility] Transferrin Saturation 11(L) 14 - 50 % 09/03/2025 4:28 PM EST [facility] Blood Venous blood specimen / Unknown Venipuncture / Unknown 09/03/2025 3:13 PM EST 09/03/2025 3:31 PM EST [employer] LAB BLOOD ORDERABLES Final Resu lt Performing Organization Address [facility] de Phone Number [facility] [address] [place] [address] * (ABNORMAL) Total Protein, Serum (09/03/2025 3:13 PM EST) Total Protein 5.8(L) 6.2 - 7.7 g/dL 09/03/2025 4:58 PM EST [facility] Blood Venous blood specimen / Unknown Venipuncture / Unknown 09/03/2025 3:13 PM EST 09/03/2025 4:21 PM EST [facility] [employer] LAB BLOOD ORDERABLES Final Resu lt Performing Organization Address [facility] Phone Number [facility] [address] [place] [address] * Protein Electrophoresis, Serum (09/03/2025 3:13 PM EST) Albumin Electrophoresis, Serum 3.6 3.6 - 4.7 g/dL 09/05/2025 3:54 AM EST [facility] Alpha 1 Globulin Electrophoresis, Serum 0.3 0.2 - 0.4 g/dL 09/05/2025 3:54 AM EST [facility] Alpha 2 Globulin Electrophoresis, Serum 0.6 0.5 - 0.9 g/dL 09/05/2025 3:54 AM EST [facility] Beta 1 Globulin Electrophoresis, Serum 0.3 0.3 - 0.5 g/dL 09/05/2025 3:54 AM EST [facility] Beta 2 Globulin Electrophoresis, Serum 0.3 0.2 - 0.5 g/dL 09/05/2025 3:54 AM EST [facility] Gamma Globulin Electrophoresis, Serum 0.7 0.6 - 1.5 g/dL 09/05/2025 3:54 AM EST [facility] [facility] Interpretation, Serum Protein Electrophoresis Pathology report to follow. 09/05/2025 3:54 AM EST [facility] Blood Venous blood specimen / Unknown Venipuncture / Unknown 09/03/2025 3:13 PM EST 09/03/2025 4:21 PM EST [employer] LAB BLOOD ORDERABLES Final Resu lt Performing Organization Address City/[facility]/ZIP Co de Phone Number [facility] [address] [place] [address] * Ionized calcium, serum (09/03/2025 3:13 PM EST) Ionized Calcium, Serum 4.8 4.6 - 5.3 mg/dL LAB HEMATOLOGY METHOD 09/03/2025 4:48 PM EST [facility] Blood Venous blood specimen / Unknown Venipuncture / Unknown 09/03/2025 3:13 PM EST 09/03/2025 4:21 PM EST [employer] LAB BLOOD ORDERABLES Final Resu lt Performing Organization Address City/[facility]/ZIP Co de Phone Number [facility] [address] [place] [address] * (ABNORMAL) PTH Intact Total (09/03/2025 3:13 PM EST) PTH Intact Total 119(H) 9 - 77 pg/mL 09/03/2025 5:15 PM EST [facility] Blood Venous blood specimen / Unknown Venipuncture / Unknown 09/03/2025 3:13 PM EST 09/03/2025 4:38 PM EST Narrative [facility] - 09/03/2025 5:15 PM EST Assay performed by immunoassay at the [facility]. Performed on [employer] chemiluminescent immunoassay, tractable to the World Health Organization's first international standard for PTH from the NIBS, Code 79/500. Results obtained from different test methods or kits cannot be used interchangeably. us Emani Cunningham LAB BLOOD ORDERABLES Final Resu lt [facility] [address] [place] [address] * (ABNORMAL) Comprehensive Metabolic Panel, Plasma (09/03/2025 3:13 PM EST) Glucose, Plasma 123(H) 74 - 99 mg/dL 09/03/2025 3:58 PM EST [facility] BUN, Plasma 33(H) 8 - 23 mg/dL 09/03/2025 3:58 PM EST [facility] Creatinine, Plasma 2.70(H) 0.60 - 1.10 mg/dL 09/03/2025 3:58 PM EST [facility] BUN/Creatinine Ratio 12 09/03/2025 3:58 PM EST [facility] Sodium, Plasma 133(L) 136 - 145 mmol/L 09/03/2025 3:58 PM EST [facility] Potassium, Plasma 5.3(H) 3.6 - 4.9 mmol/L 09/03/2025 3:58 PM EST [facility] Chloride, Plasma 105 97 - 107 mmol/L 09/03/2025 3:58 PM EST [facility] CO2, Plasma 22 22 - 29 mmol/L 09/03/2025 3:58 PM EST [facility] Anion Gap 6 6 - 16 mmol/L 09/03/2025 3:58 PM EST [facility] Total Calcium, Plasma 7.4(L) 8.9 - 10.2 mg/dL 09/03/2025 3:58 PM EST [facility] Total Protein 5.0(L) 6.3 - 7.9 g/dL 09/03/2025 3:58 PM EST [facility] Albumin, Plasma 3.2(L) 3.5 - 5.2 g/dL 09/03/2025 3:58 PM EST [facility] AST, Plasma 35 10 - 35 U/L 09/03/2025 3:58 PM EST [facility] ALT, Plasma 16 10 - 35 U/L 09/03/2025 3:58 PM EST [facility] Alkaline Phosphatase, Plasma 41(L) 46 - 142 U/L 09/03/2025 3:58 PM EST [facility] Total Bilirubin, Plasma <0.2(L) 0.2 - 1.1 mg/dL 09/03/2025 3:58 PM EST [facility] eGFRcr 17.0 mL/min/1.7 3m*2 09/03/2025 3:58 PM EST [facility] Comment:Reported eGFRcr in m L/min/1.73m2 is based the CKD-EPI 2020 equation that does not use a race coefficient. Blood Venous blood specimen / Unknown Venipuncture / Unknown 09/03/2025 3:13 PM EST 09/03/2025 3:31 PM EST us [employer] DO LAB BLOOD ORDERABLES Final Resu lt Performing Organization Address City/[facility]/ZIP Co de Phone Number [facility] [address] [place] [address] * Bone Specific Alkaline Phosphatase (09/03/2025 3:13 PM EST) Bone Specific Alkaline Phosphatase 09/06/2025 10:19 AM EST [facility] Comment:See Scanned Report. Testing performed on [facility]. [address] [place] [id number]. Korey Nettles MD, PhD, [employer]. Blood Venous blood specimen / Unknown Venipuncture / Unknown 09/03/2025 3:13 PM EST 09/03/2025 4:21 PM EST us [employer] DO LAB REF LAB BLOOD AND FLUID ORD Final Result Performing Organization Address City/[facility]/ZIP Co de Phone Number [facility] [address] [place] [address] * Vitamin D 25 hydroxy (09/03/2025 3:13 PM EST) Vitamin D 25 Hydroxy 20.9 20.0 - 80.0 ng/mL 09/03/2025 5:32 PM EST [facility] Blood Venous blood specimen / Unknown Venipuncture / Unknown 09/03/2025 3:13 PM EST 09/03/2025 4:21 PM EST Narrative [facility] - 09/03/2025 5:32 PM EST Testing performed on [employer], standardized against NIST SRM 2972. When testing [...] to 80 ng/mL Possible toxicity: >100 ng/mL us Emani Cunningham DO LAB BLOOD ORDERABLES Final Resu lt Performing Organization Address City/[facility]/ZIP Co de Phone Number [facility] [address] [place] [address] * ECG Adult (09/03/2025 1:44 PM EST) EKG DIAGNOSIS CLASS Abnormal MUSE ECG Ventricular Rate 52 BPM MUSE ECG Atrial Rate [address] Interval 150 ms MUSE ECG QRSD Interval 82 ms MUSE ECG QT Interval 492 ms MUSE ECG QTC Interval 457 ms MUSE ECG P Enders 54 degrees MUSE ECG R Enders -14 degrees MUSE ECG T Wave Enders 59 degrees MUSE ECG Diagnosis Poor data quality, interpretation may be adversely affected MUSE ECG Diagnosis Sinus bradycardia MUSE ECG Diagnosis Possible Septal infarct , age undetermined MUSE ECG Diagnosis Nonspecific T wave abnormality MUSE ECG Diagnosis Abnormal ECG MUSE ECG Diagnosis Recommend repeat ECG MUSE ECG Diagnosis MUSE ECG Diagnosis Reconfirmed by Wyatt Nowak ([id number]) on 09/03/2025 1:46:58 PM MUSE ECG 09/03/2025 1:44 PM EST 09/03/2025 1:46 PM EST us Dominick Curtis MD ECG ORDERABLES Edited Resul t - Final Performing Organization Address City/[facility]/ZIP Co de Phone Number MUSE ECG [...] TEST ORDERABLE S Final Result [place] [address], * XR Chest 1 View (09/03/2025 10:20 [...] ECG Atrial Rate [address] Interval 170 ms MUSE ECG QRSD Interval 76 ms MUSE ECG QT Interval 478 ms MUSE ECG QTC Interval 461 ms MUSE ECG P Enders 61 degrees MUSE ECG R Enders -9 degrees MUSE ECG T Wave Enders 84 degrees MUSE ECG Diagnosis Poor data quality, interpretation may be adversely affected MUSE ECG Diagnosis Sinus bradycardia MUSE ECG Diagnosis Possible Septal infarct , age undetermined MUSE ECG Diagnosis Nonspecific ST abnormality MUSE ECG Diagnosis Borderline QT interval MUSE ECG Diagnosis Abnormal ECG MUSE ECG Diagnosis Recommend repeat ECG MUSE ECG Diagnosis Confirmed by Wyatt Nowak ([id number]) on 09/03/2025 9:46:20 AM MUSE ECG 09/03/2025 9:38 AM EST 09/03/2025 9:46 AM EST us Araceli Fan PA ECG ORDERABLES Final Result MUSE ECG * (ABNORMAL) Creatine Kinase (CK), Total (09/03/2025 8:26 AM EST) Creatine Kinase, Plasma 819(H) 37 - 168 U/L 09/03/2025 1:05 PM EST [facility] Blood Venous blood specimen / Unknown Venipuncture / Unknown 09/03/2025 8:26 AM EST 09/03/2025 8:29 AM EST us Emani Cunningham DO LAB BLOOD ORDERABLES Final Resu lt [facility] [address] [place] [address] * (ABNORMAL) Reticulocytes (09/03/2025 8:26 AM EST) Reticulocyte Absolute 27.1(L) 40.0 - 110.0 10*3/uL LAB HEMATOLOGY METHOD 09/03/2025 2:13 PM EST [facility] Immature Reticulocyte Fraction 9.7 3.1 - 17.6 % LAB HEMATOLOGY METHOD 09/03/2025 2:13 PM EST [facility] Reticulocyte Hemoglobin 35.1 28 - 38 pg LAB HEMATOLOGY METHOD 09/03/2025 2:13 PM EST [facility] Reticulocyte Count 0.90 0.90 - 2.50 % LAB HEMATOLOGY METHOD 09/03/2025 2:13 PM EST [facility] Blood Venous blood specimen / Unknown Venipuncture / Unknown 09/03/2025 8:26 AM EST 09/03/2025 8:29 AM EST us Emani Cunningham DO LAB BLOOD ORDERABLES Final Resu lt Performing Organization Address City/[facility]/[place] [address] * N-Terminal Probnp (09/03/2025 8:26 AM EST) N-Terminal, PROBNP, Plasma 1,323 0 - 1,799 pg/mL 09/03/2025 12:30 PM EST [facility] Blood Venous blood specimen / Unknown Venipuncture / Unknown 09/03/2025 8:26 AM EST 09/03/2025 8:29 AM EST us Emani Cunningham DO LAB BLOOD ORDERABLES Final Resu lt Performing Organization Address [facility] [place] [address] * (ABNORMAL) Cystatin C (09/03/2025 8:26 AM EST) Cystatin C 2.09(H) 0.61 - 0.95 mg/L 09/03/2025 1:04 PM EST [facility] Blood Venous blood specimen / Unknown Venipuncture / Unknown 09/03/2025 8:26 AM EST 09/03/2025 8:29 AM EST us Emani Cunningham DO LAB BLOOD ORDERABLES Final Resu lt Performing Organization Address City/[facility]/[place] [address] * Magnesium, Plasma (09/03/2025 8:26 AM EST) Magnesium, Plasma 2.0 1.9 - 2.4 mg/dL 09/03/2025 11:55 AM EST [facility] Blood Venous blood specimen / Unknown Venipuncture / Unknown 09/03/2025 8:26 AM EST 09/03/2025 8:29 AM EST us Emani Cunningham DO LAB BLOOD ORDERABLES Final Resu lt Performing Organization Address [facility]/ZIP Co de Phone Number [facility] [address] [place] [address] * Phosphorus, Plasma (09/03/2025 8:26 AM EST) Pathologist [facility] Phosphorus, Plasma 3.8 2.5 - 4.5 mg/dL 09/03/2025 11:55 AM EST [facility] Blood Venous blood specimen / Unknown Venipuncture / Unknown 09/03/2025 8:26 AM EST 09/03/2025 8:29 AM EST Emani Cunningham DO LAB BLOOD ORDERABLES Final Resu lt Performing Organization Address [facility] Co de Phone Number [facility] [address] [place] [address] * ED HIV 1/2 Antibody/Antigen Screen w/Reflex to HIV 1/2 Differentiation (09/03/2025 8:26 AM EST) [facility] HIV 1 & 2 Antibody/Antigen Screen Non Reactive Non Reactive 09/03/2025 9:19 AM EST [facility] Comment:Screening for HIV 1 & 2 antibodies, and P24 antigen is NONREACTIVE. No confirmatory testing is required. Blood Venous blood specimen / Unknown Venipuncture / Unknown 09/03/2025 8:26 AM EST 09/03/2025 8:36 AM EST us Dominick Curtis MD LAB BLOOD ORDERABLES Final R esult Performing Organization Address City/[facility]/ZIP Co de Phone Number [facility] [address] [place] [address] * Hepatitis C Antibody - ED (09/03/2025 8:26 AM EST) [facility] Hepatitis C Antibody Negative Negative 09/03/2025 9:19 AM EST [facility] Blood Venous blood specimen / Unknown Venipuncture / Unknown 09/03/2025 8:26 AM EST 09/03/2025 8:36 AM EST us Dominick Curtis MD LAB BLOOD ORDERABLES Final R esult Performing Organization Address City/[facility]/ZIP Co de Phone Number [facility] [address] [place] [address] * (ABNORMAL) PT-INR (09/03/2025 8:26 AM EST) Prothrombin Time 14.5(H) 12.0 - 14.3 sec 09/03/2025 8:44 AM EST [facility] INR 1.1 0.9 - 1.1 09/03/2025 8:44 AM EST [facility] Blood Venous blood specimen / Unknown Venipuncture / Unknown 09/03/2025 8:26 AM EST 09/03/2025 8:29 AM EST [facility] - 09/03/2025 8:44 AM EST OPTIMAL INR RANGES FOR PATIENT ON ORAL ANTICOAGULANT THERAPY Prevention of venous thromboembolism INR 2.0 to 3.0 In patients with heart disease: Atrial fibrillation INR 2.0 to 3.0 Valvular heart disease INR 2.0 to 3.0 Tissue heart valves INR 2.0 to 3.0 Mechanical prosthetic valves INR 2.5 to 3.5 Prevention of recurrent SD INR 2.5 to 3.5 Dominick Curtis MD LAB BLOOD ORDERABLES Final R esult [facility] [address] [place] [address] * (ABNORMAL) CBC w/diff (09/03/2025 8:26 AM EST) WBC Count 9.36 3.70 - 10.30 10*3/uL LAB HEMATOLOGY METHOD 09/03/2025 10:33 AM EST [facility] RBC Count 3.06(L) 3.90 - 5.20 10*6/uL LAB HEMATOLOGY METHOD 09/03/2025 10:33 AM EST [facility] HGB 9.1(L) 11.2 - 15.7 g/dL LAB HEMATOLOGY METHOD 09/03/2025 10:33 AM EST [facility] HCT 27.4(L) 34.0 - 45.0 % LAB HEMATOLOGY METHOD 09/03/2025 10:33 AM [facility] Platelet Count 79(L) 155 - 369 10*3/uL LAB HEMATOLOGY METHOD 09/03/2025 10:33 AM [facility] MCV 90 79 - 98 fL LAB HEMATOLOGY METHOD 09/03/2025 10:33 AM [facility] MCH 29.7 26.0 - 32.0 pg LAB HEMATOLOGY METHOD 09/03/2025 10:33 AM [facility] MCHC 33.2 30.7 - 35.5 g/dL LAB HEMATOLOGY METHOD 09/03/2025 10:33 AM [facility] RDW 13.9 11.5 - 14.5 % LAB HEMATOLOGY METHOD 09/03/2025 10:33 AM [facility] MPV LAB HEMATOLOGY METHOD 09/03/2025 10:33 AM [facility] Comment:Not Measured nRBC 0.0 <=0.0 per 100 WBCs LAB HEMATOLOGY METHOD 09/03/2025 10:33 AM [facility] Differential Type Automated LAB HEMATOLOGY METHOD 09/03/2025 10:33 AM [facility] Neutrophils % 89 % LAB HEMATOLOGY METHOD 09/03/2025 10:33 AM [facility] Lymphocytes % 5 % LAB HEMATOLOGY METHOD 09/03/2025 10:33 AM [facility] Monocytes % 6 % LAB HEMATOLOGY METHOD 09/03/2025 10:33 AM [facility] Eosinophils % 0 % LAB HEMATOLOGY METHOD 09/03/2025 10:33 AM [facility] Basophils % 0 % LAB HEMATOLOGY METHOD 09/03/2025 10:33 AM [facility] Immature Granulocytes % 0 % LAB HEMATOLOGY METHOD 09/03/2025 10:33 AM [facility] Neutrophils Absolute 8.24(H) 1.60 - 6.10 10*3/uL LAB HEMATOLOGY METHOD 09/03/2025 10:33 AM [facility] Lymphocytes Absolute 0.50(L) 1.20 - 3.90 10*3/uL LAB HEMATOLOGY METHOD 09/03/2025 10:33 AM [facility] Monocytes Absolute 0.58 0.30 - 0.90 10*3/uL LAB HEMATOLOGY METHOD 09/03/2025 10:33 AM [facility] Eosinophils Absolute 0.00 0.00 - 0.50 10*3/uL LAB HEMATOLOGY METHOD 09/03/2025 10:33 AM EST [facility] Basophils Absolute 0.01 0.00 - 0.10 10*3/uL LAB HEMATOLOGY METHOD 09/03/2025 10:33 AM EST [facility] Immature Granulocytes Absolute 0.03 0.00 - 0.06 10*3/uL LAB HEMATOLOGY METHOD 09/03/2025 10:33 AM EST [facility] Blood Venous blood specimen / Unknown Venipuncture / Unknown 09/03/2025 8:26 AM EST 09/03/2025 8:29 AM EST Narrative [facility] - 09/03/2025 10:33 AM EST Therapeutic decision making should be based on absolute values, rather than percentages. us Dominick Curtis MD LAB BLOOD ORDERABLES Final R esult [facility] [address] [place] [address] * (ABNORMAL) CMP (09/03/2025 8:26 AM EST) Glucose, Plasma 191(H) 74 - 99 mg/dL 09/03/2025 8:49 AM EST [facility] BUN, Plasma 37(H) 8 - 23 mg/dL 09/03/2025 8:49 AM EST [facility] Creatinine, Plasma 3.17(H) 0.60 - 1.10 mg/dL 09/03/2025 8:49 AM EST [facility] BUN/Creatinine Ratio 12 09/03/2025 8:49 AM EST [facility] Sodium, Plasma 130(L) 136 - 145 mmol/L 09/03/2025 8:49 AM EST [facility] Potassium, Plasma 5.6(H) 3.6 - 4.9 mmol/L 09/03/2025 8:49 AM EST [facility] Chloride, Plasma 98 97 - 107 mmol/L 09/03/2025 8:49 AM EST [facility] CO2, Plasma 25 22 - 29 mmol/L 09/03/2025 8:49 AM EST [facility] Anion Gap 7 6 - 16 mmol/L 09/03/2025 8:49 AM EST [facility] Total Calcium, Plasma 9.0 8.9 - 10.2 mg/dL 09/03/2025 8:49 AM EST [facility] Total Protein 5.8(L) 6.3 - 7.9 g/dL 09/03/2025 8:49 AM EST [facility] Albumin, Plasma 3.7 3.5 - 5.2 g/dL 09/03/2025 8:49 AM EST [facility] AST, Plasma 37(H) 10 - 35 U/L 09/03/2025 8:49 AM EST [facility] ALT, Plasma 15 10 - 35 U/L 09/03/2025 8:49 AM EST [facility] Alkaline Phosphatase, Plasma 47 46 - 142 U/L 09/03/2025 8:49 AM EST [facility] Total Bilirubin, Plasma 0.2 0.2 - 1.1 mg/dL 09/03/2025 8:49 AM EST [facility] eGFRcr 14.0 mL/min/1.7 3m*2 09/03/2025 8:49 AM EST [facility] Comment:Reported eGFRcr in m L/min/1.73m2 is based the CKD-EPI 2020 equation that does not use a race coefficient. Blood Venous blood specimen / Unknown Venipuncture / Unknown 09/03/2025 8:26 AM EST 09/03/2025 8:29 AM EST us Dominick Curtis MD LAB BLOOD ORDERABLES Final R esult [facility] [address] [place] [address] * XR Knee Left 3 Views (09/03/2025 [...] osteoporosis with current pathological fracture, initial encounter Displaced intertrochanteric fracture of left femur, initial encounter for closed fracture documented in this encounter Admitting Diagnoses Diagnosis Displaced intertrochanteric fracture of left femur, initial encounter for closed fracture documented in this encounter Administered Medications Inactive Administered Medications - up to 3 most recent administrations Medication Order MAR Action Action Date Dose Rate Site acetaminophen (Tylenol) tablet 650 mg 650 mg, Oral, Every 8 hours, First dose on Wed09/03/25 at 1140, Until Discontinued, Routine Given 09/07/2025 5:08 AM EST 650 mg Given 09/06/2025 9:03 PM EST 650 mg Given 09/06/2025 1:23 PM EST 650 mg aspirin chewable tablet 81 mg 81 [...] Given 09/05/2025 9:42 PM EST 12.5 mg cholecalciferol (Vitamin D-3) tablet 2,000 Units 2,000 [...] PRN low blood sugar BG =/<50 mg/dL escitalopram (Lexapro) tablet 10 mg 10 mg, [...] PM EST 5,000 Units Left Upper Arm (Back) Given 09/06/2025 1:23 PM EST 5,000 Units L eft Lower Abdomen Given 09/06/2025 6:24 AM EST 5,000 Units L eft Upper Arm (Back) Matthew powder 1 packet 1 packet, Oral, 2 times daily, First dose on Wed09/04/25 at 1300, Until Discontinued, Routine, Recovery(Phase II-Outpatient)/On Unit(Inpatient) Given 09/07/2025 8:46 AM EST 1 packet Given 09/06/2025 9:04 PM EST 1 packet Given 09/06/2025 8:42 AM EST 1 packet levothyroxine (Synthroid, Levoxyl) tablet 112 mcg 112 [...] Given 09/06/2025 8:38 AM EST 5 mg mupirocin (Bactroban) 2 % ointment 1 Application Each Nostril, 2 times daily, 10 doses, First dose on Wed09/04/25 at 0900, Last dose on Wed09/08/25 at 2100, RoutineIndications:Methicillin-Resista nt S. Aureus Nasal [...] Given 09/06/2025 9:02 PM EST 17 g senna (Senokot) tablet 17.2 mg 17.2 mg (2 tablet), Oral, 2 times daily, First dose (after last modification) on Rabia 09/06/25 at 2100, Until Discontinued, Routine Given 09/06/2025 9:04 PM EST 17.2 mg sodium chloride 0.9 % flush 10 mL [...] Given 09/07/2025 8:42 AM EST 10 g documented in this encounter Active and Recently Administered Medications Times are shown in EST. Scheduled Medication Order 09/05/2025 09/06/2025 09/07/2025 acetaminophen (Tylenol) tablet 650 mg 650 mg, Oral, Every 8 hours, First dose on Wed09/03/25 at 1140, Until Discontinued, Routine 0539 (Given - Provider: Damaris Cunningham RN)1242 (Given - Provider: Halley Jaimes RN)2140 (Given - Provider: Sparkle Guerrero RN - Comment: pt asleep and did not want to be wake up.) 0623 (Given - Provider: Sparkle Guerrero RN)1323 (Given - Provider: Halley Jaimes RN)210 (Given - Provider: Sparkle Guerrero RN) 0508 (Given - Provider: Sparkle Guerrero RN) aspirin chewable tablet 81 mg 81 mg, Oral, Daily, First dose on Wed09/03/25 at 1455, Until Discontinued, Routine 0808 (Given - Provider: Halley Jaimes RN) 0837 (Given - Provider: Halley Jaimes RN) 0843 (Given - Provider: Marley Almonte RN) atorvastatin (Lipitor) tablet 80 mg 80 mg, Oral, Nightly, First dose on Wed09/03/25 at 2100, Until Discontinued 2140 (Given - Provider: Sparkle Guerrero RN) 2102 (Given - Provider: Sparkle Guerrero RN) bisacodyl (Dulcolax) suppository 10 mg (COMPLETED) 10 mg, Rectal, Once, 1 dose, On Wed09/06/25 at 0815, Routine 0837 (Given - Provider: Halley Jaimes RN) carvedilol (Coreg) tablet 12.5 mg 12.5 mg, Oral, 2 times daily, First dose (after last modification) on Wed09/04/25 at 0730, Until Discontinued, Routine 0806 (Given - Provider: Halley Jaimes, FILIBERTO)214 (Given - Provider: Sparkle Guerrero RN) 0837 (Given - Provider: Halley Jaimes RN)210 (Given - Provider: Sparkle Guerrero RN) 0843 [...] 0843 (Given - Provider: Marley Almonte RN) cyanocobalamin (Vitamin B-12) tablet 1,000 mcg 1,000 mcg, Oral, Daily, First dose on Wed09/03/25 at 1455, Until Discontinued, Routine 0806 (Given - Provider: Halley Jaimes RN) 0838 (Given - Provider: Halley Jaimes RN) 0843 (Given - Provider: Marley Almonte RN) dextrose 10 % (D10W) bolus 250 mL (COMPLETED) 250 mL (25 g), Intravenous, Once, 1 dose, On Wed09/05/25 at 0845, Administer over 30 Minutes, Routine 08 (New Bag - Provider: Halley Jiames RN) escitalopram (Lexapro) tablet 10 mg 10 [...] Damaris Cunningham RN)1523 (Given - Provider: Halley Jaimes RN)2148 (Given - Provider: Sparkle Guerrero RN) 0624 (Given - Provider: Sparkle Guerrero RN)1323 (Given - Provider: Halley Jaimes RN)210 (Given - Provider: Sparkle Guerrero RN) 0511 (Not Given - Provider: Sparkle Guerrero RN - Reason: Patient/Family/Represe ntative Refused - Comment: [...] Unit(Inpatient) 0819 (Given - Provider: Halley Jaimes RN)215 (Given - Provider: Sparkle Guerrero RN) 0842 (Given - Provider: Halley Jaimes RN)210 (Given - Provider: Sparkle Guerrero RN) 0846 (Given - Provider: Marley Almonte, FILIBERTO) levothyroxine (Synthroid, Levoxyl) tablet 112 mcg 112 mcg, Oral, Daily, First dose on Wed09/04/25 at 0900, Until Discontinued, Routine 08 (Given - Provider: Halley Jaimes RN) 0838 (Given - Provider: Halley Jaimes RN) 0843 (Given - Provider: Marley Almonte, FILIBERTO) melatonin tablet 6 mg 6 mg, Oral, Nightly, First dose on Wed09/06/25 at 2115, Until Discontinued, Routine 2102 (Given - Provider: Sparkle Guerrero RN) memantine (Namenda) tablet 5 mg 5 mg, Oral, 2 times daily, First dose on Wed09/03/25 at 1455, Until Discontinued, Routine 0819 (Given - Provider: Halley Jaimes RN)214 (Given - Provider: Sparkle Evanson, RN) 0838 (Given - Provider: Halley Jaimes RN)210 (Given - Provider: Sparkle Guerrero RN) 0843 (Given - Provider: Marley Almonte RN) mupirocin (Bactroban) 2 % ointment 1 Application Each Nostril, 2 times daily, 10 doses, First dose on Wed09/04/25 at 0900, Last dose on Wed09/08/25 at 2100, Routine 0805 (Given - Provider: Halley Jaimes RN)2146 (Given - Provider: Sparkle Guerrero RN) 0837 (Given - Provider: Halley Jaimes [...] on Wed09/06/25 at 2100, Until Discontinued, Routine 2104 (Given - Provider: Sparkle Guerrero RN) 0847 [...] Halley Jaimes RN)1524 (Given - Provider: Halley Jaimes RN)2102 (Given - Provider: Sparkle Guerrero, RN) sodium zirconium cyclosilicate (Lokelma) packet 10 g(Linked Group 2) 10 g, Oral, Daily, First dose on Wed09/07/25 at 0900, Until Discontinued, Routine 0842 (Given - Provider: Marley Almonte, RN) PRN Medication Order 09/05/2025 09/06/2025 09/07/2025 bisacodyl (Dulcolax) suppository 10 mg 10 mg, Rectal, Daily PRN, Starting on Rabia 09/06/25 at 1628, Until Wed09/07/25 at 1337, Routine, constipation 1726 (Given - Provider: Halley Jaimes, FILIBERTO) busPIRone (Buspar) tablet 5 mg 5 mg, [...] 0950 (New Bag - Provider: Halley Jaimes, FILIBERTO) dextrose 10 % (D10W) bolus 250 mL(Linked [...] 0950 (See Alternative - Provider: Halley Jaimes, RN) glucose (Glutose) 40 % oral gel 15-30 grams of glucose(Linked Group 3) 15-30 grams of glucose, Sublingual, Every 15 min PRN, Starting on Wed09/03/25 at 1132, Until Wed09/07/25 at 1337, Routine, low blood sugar, per Hypoglycemia Prevention and Treatment protocol 0950 (See Alternative - Provider: Halley Jaimes RN) magnesium hydroxide (Milk of Magnesia) 400 MG/5ML suspension 30 mL 30 mL, Oral, Daily PRN, Starting on Rabia 09/06/25 at 1628, Until Wed09/07/25 at 1337, Routine, constipation 1726 (Given - Provider: Halley Jaimes RN) ondansetron (Zofran) 4 MG/5ML solution 4 mg(Linked [...] Oral, Every 6 hours PRN, Starting on 09/03/25 at 1133, Until 09/07/25 at 1337, Routine, nausea, vomiting documented in this encounter Additional Health Concerns Assessment Noted Time A fall risk assessment has been complete d for the patient 02/01/2024 1:15 PM EDT A Body Mass Index follow-up plan has been documented for the patient 09/07/2025 11:15 AM EST documented as of this encounter Care Teams Regional Sales Executive Relationship Specialty Start Date End Date Srinivasan Smith MD [facility] [place] [address] PCP - General Internal Medicine 01/20/22 Pita Martinez MD [address] [place] [phone] Referring Physician Interventional Cardiology 12/23/21 documented as of this encounter
--- OUTSIDE RECORDS SUMMARY | 2025-09-04 10:21 | XMS_ITS | Encounter Summary ---
Author Organization Healthcare Address [address] [id number] Care Team Providers Care Ribbon Weaver Name Role Phone Pita Martinez MD Unavailable [phone] Srinivasan Smith MD Primary Care Provider [phone] Reason for Visit * Auth/Cert (Routine) Specialty Diagnoses / Procedures Referred By Contac t Referred To Contact Diagnoses Displaced intertrochanteric fracture of left femur, initial encounter for closed fracture fall - left hip fx Julia Spangler, DO [address] [place] [address] Phone: tel: fax: CH PAVA 9 T2 UNI [address] [place] [address] Phone: tel: Referral ID Status Reason Start Date Expiration Date Visits Re quested Visits Authorized [id number] 1 1 Encounter Details Date Type Department Care Team (Late st Contact Info) Description 09/04/2025 10:21 AM EST Anesthesia Event [facility] [address] [place] [address] Quang Rodriguez MD [address] [place] [address] Nathalia Oshea PA [address] [address] Anesthesia Record Procedure Summary Procedure Name Responsible Anesthesiologist Anesthesia Start Time Anesthesia Stop Time INSERTION, INTRAMEDULLARY OSWALD, FEMUR (Left: Leg Upper) Quang Rodriguez MD 09/04/25 1021 09/04/25 1222 Events Date Time Event Comment 09/04/2025 1008 1021 An Start The patient was reevaluated immediately before sedation and remains eligible for anesthesia plan. 1026 An Start Data 1027 In Room 1030 An Induction The patient was reevaluated immediately before moderate or deep sedation use and before anesthesia induction. 1032 An Intubation 1045 Anesthesia Ready 1101 Proc Start 1201 Proc Fin 1212 An Extubation 1214 an stop data 1216 Out of Room 1221 Handoff to Receiving I compl eted my handoff to the receiving clinician during which we: 1. Identified the patient 2. Identified the responsible provider 3. Reviewed the pertinent medical history 4. Discussed the surgical course 5. Reviewed intra-op anesthesia management and issues during anesthesia 6. Set expectations for post-procedure period 7. Allowed opportunity for questions and acknowledgement of understanding. 1222 An Stop Meds Name Total fentaNYL (Sublimaze) injection 50 mcg/mL 100 mcg propofol (Diprivan) injection 10 mg/mL 1 00 mg ondansetron (Zofran) injection 2 mg/mL 4 mg Lidocaine HCl 100 MG/5ML 20 mg rocuronium (ZeMuron) injection 10 mg/mL 50 mg dexamethasone (Decadron) injection 4 mg/ mL 4 mg ePHEDrine injection prefilled syringe 5 mg/mL 25 mg phenylephrine (Fortunato-Synephrine) prefilled syringe 1 mg/10 mL 600 mcg sugammadex (Bridion) injection 100 mg/mL 100 mg ceFAZolin (Ancef) injection 2 g 2 g vasopressin 20 UNIT/ML 1.5 Units glycopyrrolate (Robinul) injection 0.2 m g/mL 0.2 mg lactated Ringer's infusion 800 mL sodium chloride 0.9 % infusion 300 mL * Agents Name O2 * Blood Name Total PRBC 350 mL Lines, Drains, and Airways Type Details Placement Removal Wound 09/04/25; N; Yes; Surgical; Leg; Anterior, Left, Proximal, Upper 09/04/25 0000 by Leny Peraza RN Peripheral IV Placement Date: 10/28; Placement Time: 08; Catheter Size: 18 G; Orientation: Right; Location: Antecubital; Site Prep: Alcohol; Insertion Attempts: 1; Patient Tolerance: Tolerated well; Removal Date: 09/06/25; Removal Time: 0830; Removal Reason: Leaking 09/03/25 0827 by Ericka Chappell CNA 09/06/25 0830 by Halley Jaimes RN Peripheral IV Placement Date: 11/28; Placement Time: 1030 (created via procedure documentation); Catheter Size: 16 G; Orientation: Left; Location: Forearm; Local Anesth: None; Technique: Anatomical landmarks; Insertion Attempts: 1; Removal Date: 09/05/25; Removal Time: 0809/04/25 1030 by Vaishnavi Rosales CRNA 09/05/25 0830 by Halley Jaimes RN ETT Placement Date: 11/28; Placement Time: 103 (created via procedure documentation); Mask Ventilation: 2; Technique: Direct laryngoscopy; Type: ETT - single; Single Lumen Tube Size: 7 mm; Cuffed: Yes; Laryngoscope: Lulu; Blade Size: 3; Location: Oral; Grade View: Grade I; Insertion Attempts: 1; Placement Verification: Auscultation, Capnometry; Airway Comments: Atraumatic. No change to dentition. ; Placed by: ALBA; Removal Date: 09/04/25; Removal Time: 1213 09/04/25 1032 by Vaishnavi Rosales CRNA 09/04/25 1213 by Vaishnavi Rosales CRNA Arterial Line Placement Date: 11/28; Placement Time: 1105 (created via procedure documentation); Size: 20 G; Orientation: Right; Location: Radial; Inserted by: COURTESY DRIVER; Securement: Taped; Patient Tolerance: Tolerated well; Removal Date: 09/04/25; Removal Time: 1315; Removal Reason: Per order 09/04/25 1105 by Vaishnavi Rosales CRNA 09/04/25 1315 by Maisha Goldberg RN documented in this encounter Social History [...] and Family Not on file 09/05/2025 Attends [employer] Not on file 09/05 Active Member [...] any time in the past 12 m onths, were you homeless or living in a senior care (including now)? 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 Anesthesia Post Evaluation Patient location during evaluation: PACU Patient participation: complete - patient participated Level of consciousness: awake Pain management: adequate (pain score 0-3) Airway patency: natural airway Cardiovascular status: acceptable and hemodynamically stable Respiratory status: acceptable, face mask, nonlabored ventilation and spontaneous ventilation Hydration status: acceptable Nausea/Vomiting: No No notable events documented. * Anesthesia Procedure Notes - Vaishnavi Rosales CRNA - 09/04/2025 11:01 AM EST Associated Order(s): Arterial Line Arterial Line: Date/Time: 09/04/2025 11:05 AM An arterial line was placed. Procedure performed using surface landmarks in the OR for the following indication(s): continuous blood pressure monitoring and blood sampling needed. A 20 gauge (size), 1 and 3/4 inch (length), Arrow (type) catheter was placed into the Right radial artery and secured by tape. Seldinger technique used Events: patient tolerated procedure well with no complications. Staffing Performed: ALBA COURTESY DRIVER: Vaishnavi Rosales CRNA * Anesthesia Procedure Notes - Vaishnavi Rosales CRNA - 09/04/2025 11:00 AM EST Associated Order(s): Peripheral IV Peripheral IV Date/Time: 09/04/2025 10:30 AM Placement Needle size: 16 G Location: forearm Local anesthetic: none Site prep: alcohol Technique: anatomical landmarks Attempts: 1 * Anesthesia Procedure Notes - Vaishnavi Rosales CRNA - 09/04/2025 10:59 AM EST Associated Order(s): Airway Airway Date/Time: 09/04/2025 10:32 AM Reason: elective Airway not difficult General Information and Staff Patient location during procedure: OR COURTESY DRIVER: Vaishnavi Rosales CRNA Performed: COURTESY DRIVER Patient Condition Indications for airway management: anesthesia Patient position: sniffing Final Airway Details Final airway type: endotracheal airway Successful airway: ETT Cuffed: yes Successful intubation technique: direct laryngoscopy Adjuncts used in placement: intubating stylet Endotracheal tube insertion site: oral Blade: Lulu Blade size: #3 ETT size (mm): 7.0 Cormack-Lehane Classification: grade I - full view of glottis Placement verified by: chest auscultation and capnometry Cuff volume (mL): 8 Measured from: lips ETT to lips (cm): 20 Additional Comments Atraumatic. No change to dentition. * Anesthesia Preprocedure Evaluation - Quang Rodriguez MD - 09/04/2025 6:55 AM EST Images from the original note were not included. Procedure Information Date/Time: 09/04/25 1020 Procedure: INSERTION, INTRAMEDULLARY OSWALD, FEMUR (Left: Leg Upper) - Supine, agustin, C arm, ortho soft tissue, trauma toolbox, sterile traction, SNN Interta Location: [facility] Jr / [facility] OR Surgeons: Jose Antoino Hernández MD HPI Lakesha Delio Kana is a 85 y.o. female with body mass index is 20.36 kg/m??. who presents with Displaced intertrochanteric fracture of left femur, initial encounter for closed fracture now for above procedure PMH: HTN, HLD, DMII (per chart review, pt denies), NARAYAN (intermittently uses CPAP), hypothyroidism, Hiatal hernia, SAH, PFO, and CAD s/p PCI to ostial/mid LAD in 2015(Cath in 2020 showed patent stent)and aortic stenosis s/p TAVR 01/19/22, hx Roberts's esophagus, anemia, hx of PFO seen on bubble study in 2007 Per patient and son, patient has started to have some issues with memory and confusion and they areworried she may be developing dementia. Echo, Adult Transthoracic Complete Result Date: 09/04/2025 Left Ventricle: The left ventricle is small. [...] there is no significant interval change noted. AIRWAY HISTORY: Date Difficult Airway Blade Size ETT Size C-L Class Final Type Intubation Method 01/19/22 No NPO STATUS: Activity Level/METS: remains active, goes to the [facility] and walks for exercise and cares for her blind Type & Screen Expires: 09/06 Lab Results Component Value Date ABO A Positive 09/03/2025 ALLERGIES Allergies[1] MEDICATIONS Outpatient Current Outpatient Medications Medication Instructions amLODIPine (NORVASC) [...] daily zinc gluconate 50 mg, Oral, Daily Scheduled Current Scheduled Medications[2] PRNs Current PRN Medications[3] SURGICAL HX: Surgical History[4] SOCIAL HX: Social History[5] OBJECTIVE DATA Blood pressure (!) 140/67, pulse 58, temperature 36.8 ??C (98.2 ??F), temperature source Oral, resp. rate 16, height 1.575 m (5' 2 ), weight 50.5 kg (111 lb 5.3 oz), SpO2 97%. LABS Lab Results Component Value Date WBC 6.75 09/04/2025 HGB 8.2 (L) 09/04/2025 HCT 25.5 (L) 09/04/2025 MCV 91 09/04/2025 PLT 72 (L) 09/04/2025 Lab Results Component Value Date CALCIUM 8.4 (L) 09/04/2025 BUN 37 (H) 09/04/2025 CREATININE 3.16 (H) 09/04/2025 BCR 12 09/04/2025 NA 129 (L) 09/04/2025 K 5.4 (H) 09/04/2025 CL 98 09/04/2025 CO2 23 09/04/2025 ANIONGAP 8 09/04/2025 INR Date Value Ref Range Status 09/04/2025 1.1 0.9 - 1.1 Final Lab Results Component Value Date HGBA1C 6.7 (H) 02/17/2018 GLUCOSE 101 (H) 09/04/2025 EKG ECHO Echo, Adult Transthoracic Complete Result Date: 09/04/2025 Left Ventricle: The left ventricle is small. [...] there is no significant interval change noted. CXR: Impression: No acute finding. Physical Exam Airway Mallampati: I Mouth opening: normal TM distance: >3 FB Neck ROM: full Cardiovascular Rhythm: irregular Rate: normal Comments: EKG in pre-op showing sinus arrhythmia Dental Pulmonary Breath sounds clear to auscultation Neurological Oriented: normal to time, normal to place and normal to person and oriented to person, place and time Comments: Oriented to person place and time, but still somewhat confused. She originally thought she was at the hospital to undergo heart surgery. After being reminded that she fell she could recount the whole story, injury, and surgical plan. Skin Musculoskeletal (+) fracture Extremities Anesthesia Plan ASA 3 Plan was reviewed with: COURTESY DRIVER Anesthesia technique(s) discussed with the patient/family: general Anesthesia plan agreed upon was: general Anesthetic plan and risks discussed with patient and healthcare power of trust and estates attorney. Use of blood products discussed with patient and healthcare power of trust and estates attorney who consented to blood products. Comment: Patient consent, and plan also discussed with son at bedside who agrees ROS Anesthesia: Date of last anesthetic: 2021 No issues with prior GA history of previous anesthesia and obstructive sleep apnea (intermittently using CPAP at home). Does not have a history of anesthetic complications and PONV. Cardiovascular: CAD and valvular heart disease. Does not have atrial fibrillation, CHF, pacemaker or past RI. hypertension: Cardio additional comments: Last follow up with [facility] in 2023, was doing well and ECHO was with preserved LVEF, normal AV gradient. . Respiratory: asthma: no COPD: Neurological: no seizures: TIA. Musculoskeletal: Musc/Skel/Integ additional comments: Left femur fracture Gastrointestinal: Does not have GERD.hernia. Does not have cirrhosis. Genitourinary: chronic renal disease: Hematological/Lymphatic: anemia. History of no DVT. History of no pulmonary embolism. no history of chemotherapy Endocrine/Metabolic: does not have diabetes mellitus. thyroid disorder. electrolyte abnormalities. [1] Allergies Allergen Reactions Amoxicillin-Pot Clavulanate Unknown - Patient states they do not know rxn details [2] [Transfer Hold] acetaminophen, 650 mg, Oral, q8h [Transfer Hold] aspirin, 81 mg, Oral, Daily [Transfer Hold] atorvastatin, 80 mg, Oral, Nightly [Transfer Hold] carvedilol, 12.5 mg, Oral, BID [Transfer Hold] cyanocobalamin, 1,000 mcg, Oral, Daily [Transfer Hold] escitalopram, 10 mg, Oral, Daily [Transfer Hold] levothyroxine, 112 mcg, Oral, Daily [Transfer Hold] memantine, 5 mg, Oral, BID [Transfer Hold] mupirocin, 1 Application, Each Nostril, BID [Transfer Hold] omega-3, 1,000 mg, Oral, Daily [Transfer Hold] polyethylene glycol, 17 g, Oral, Daily [Transfer Hold] senna, 2 tablet, Oral, Nightly Insert peripheral IV, , , Once AND Saline lock IV, , , Once AND sodium chloride, 10 mL, Intravenous, q12h AND sodium chloride, 10 mL, Intravenous, PRN Insert peripheral IV, , , Once AND Saline lock IV, , , Once AND [Transfer Hold] sodium chloride, 10 mL, Intravenous, q12h AND [Transfer Hold] sodium chloride, 10 mL, Intravenous, PRN [3] PRN medications: [Transfer Hold] busPIRone, [Transfer Hold] glucose OR [Transfer Hold] dextrose 10 % OR [Transfer Hold] dextrose 10 % OR [Transfer Hold] glucagon (human recombinant), [Transfer Hold] melatonin, [Transfer Hold] ondansetron ODT OR [Transfer Hold] ondansetron OR [Transfer Hold] ondansetron, [Transfer Hold] oxyCODONE, Insert peripheral IV AND Saline lock IVAND [Transfer Hold] sodium chloride AND [Transfer Hold] sodium chloride, Insert peripheral IV AND Saline lock IV AND sodium chloride AND sodium chloride [4] Past Surgical History: Procedure Laterality Date CARDIAC CATHETERIZATION N/A HYSTERECTOMY N/A TUBAL LIGATION N/A [5] Social History Tobacco Use Smoking status: Former Current packs/day: 0.00 Average packs/day: 0.3 packs/day for 30.0 years (7.5 ttl pk-yrs) Types: Cigarettes Start date: 1964 Quit date: 1994 Years since quittin.9 Passive exposure: Past Smokeless tobacco: Never Vaping Use Vaping status: Never Used Substance Use Topics Alcohol use: Yes Comment: Social, every blue hearn Drug use: Never documented in this encounter Plan of Treatment Upcoming Encounters Date Type Department Care Team (Late st Contact Info) Description 09/25/2025 12:30 PM EST Office Visit [facility] Orthopaedic Surgery & Sports Medicine [address] [place] [address] Sarah Hunter PA [phone] [place] [address] 10/24/2025 8:00 AM EST Appointment [facility] Radiology [address], [address] [place] [phone] 10/24/2025 8:40 AM EST Office Visit [facility]opa[facility] Surgery [facility] Sports Medicine [address] [place] [address] Jose Antonio Hernández MD [address] [place] [address] 11/21/2025 3:00 PM EST Office Visit [facility] [address] [facility], [address] [place] [phone] Aime Mcelroy MD [address] [place] [phone] documented as of this encounter Procedures Procedure Name Priority Date/Time Associated Diagnosis Comments PB ANESTHESIA NON-TIMED PROCEDURE PLACEHOLDER Routine 09/04/2025 11:05 AM EST PB ANESTHESIA PLACEHOLDER Routine 09/04/2025 10:32 AM EST VT AN ELECTIVE ENDOTRACHEAL AIRWAY Routine 09/04/2025 10:32 AM EST ANESTHESIA PERIPHERAL IV PLACEMENT Routine 09/04/2025 10:30 AM EST documented in this encounter Results * PB ANESTHESIA NON-TIMED PROCEDURE PLACEHOLDER (09/04/2025 11:05 AM EST) Vaishnavi Walter CRNA - 09/04/2025 11:05 AM EST Vaishnavi Rosales CRNA 09/04/2025 11:02 AM Arterial Line: Date/Time: 09/04/2025 11:05 AM An arterial line was placed. Procedure performed using surface landmarks in the OR for the following indication(s): continuous blood pressure monitoring and blood sampling needed. A 20 gauge (size), 1 and 3/4 inch (length), Arrow (type) catheter was placed into the Right radial artery and secured by tape. Seldinger technique used Events: patient tolerated procedure well with no complications. Staffing Performed: COURTESY DRIVER COURTESY DRIVER: Vaishnavi Rosales CRNA Quang Rodriguez MD ANESTHESIA ORDERABLES Final R esult * VT AN ELECTIVE ENDOTRACHEAL AIRWAY, PB ANESTHESIA PLACEHOLDER (09/04/2025 10:32 AM EST) Vaishnavi Walter CRNA - 09/04/2025 10:32 AM EST Vaishnavi Rosales CRNA 09/04/2025 11:00 AM Airway Date/Time: 09/04/2025 10:32 AM Reason: elective Airway not difficult General Information and Staff Patient location during procedure: OR COURTESY DRIVER: Vaishnavi Rosalse CRNA Performed: COURTESY DRIVER Patient Condition Indications for airway management: anesthesia Patient position: sniffing Final Airway Details Final airway type: endotracheal airway Successful airway: ETT Cuffed: yes Successful intubation technique: direct laryngoscopy Adjuncts used in placement: intubating stylet Endotracheal tube insertion site: oral Blade: Lulu Blade size: #3 ETT size (mm): 7.0 Cormack-Lehane Classification: grade I - full view of glottis Placement verified by: chest auscultation and capnometry Cuff volume (mL): 8 Measured from: lips ETT to lips (cm): 20 Additional Comments Atraumatic. No change to dentition. us Quang Rodriguez MD ANESTHESIA ORDERABLES Final R esult * Peripheral IV (09/04/2025 10:30 AM EST) Narrative Vaishnavi Rosales CRNA - 09/04/2025 10:30 AM EST Vaishnavi Rosales CRNA 09/04/2025 11:00 AM Peripheral IV Date/Time: 09/04/2025 10:30 AM Placement Needle size: 16 G Location: forearm Local anesthetic: none Site prep: alcohol Technique: anatomical landmarks Attempts: 1 us Quang Rodriguez MD ANESTHESIA ORDERABLES Final R esult documented in this encounter Visit Diagnoses Not on filedocumented in this encounter Administered Medications Inactive Administered Medications - up to 3 most recent administrations Medication Order MAR Action Action Date Dose Rate Site ceFAZolin (Ancef) injection 2 g 2 g, Intravenous, Once, 1 dose, On Wed09/04/25 at 1200, Routine, Anesthesia Intraprocedure Given 09/04/2025 10:57 AM EST 2 g dexamethasone (Decadron) injection Intravenous, As needed, Starting on Wed09/04/25 at 1051, Until Wed09/04/25 at 1222, Routine, Anesthesia Intraprocedure Given 09/04/2025 10:51 AM EST 4 mg ePHEDrine Sulfate (Akovaz) injection Intravenous, As needed, Starting on Wed09/04/25 at 1035, Until Wed09/04/25 at 1222, Routine, Anesthesia Intraprocedure Given 09/04/2025 10:51 AM EST 5 mg Given 09/04/2025 10:43 AM EST 10 mg Given 09/04/2025 10:35 AM EST 10 mg fentaNYL (Sublimaze) injection Intravenous, As needed, Starting on Wed09/04/25 at 1120, Until Wed09/04/25 at 1222, Routine, Anesthesia Intraprocedure Given 09/04/2025 11:20 AM EST 10 0 mcg glycopyrrolate (Robinul) injection Intravenous, As needed, Starting on e 09/04/25 at 1133, Until 09/04/25 at 1222, Routine, Anesthesia Intraprocedure Given 09/04/2025 11:33 AM EST 0. 2 mg lactated Ringer's infusion Intravenous, Continuous PRN, Starting on e 09/04/25 at 1026, Until Wed09/04/25 at 1222, Routine New Bag 09/04/2025 10:26 AM EST Lidocaine HCl prefilled syringe Buccal, As needed, Starting on e 09/04/25 at 1030, Anesthesia Intraprocedure Given 09/04/2025 10:30 AM EST 20 mg ondansetron (Zofran) injection Intravenous, As needed, Starting on e 09/04/25 at 1155, Until 09/04/25 at 1222, Routine, Anesthesia Intraprocedure Given 09/04/2025 11:55 AM EST 4 mg phenylephrine in NS (Fortunato-Synephrine) 100 mcg/mL prefilled syringe Intravenous, As needed, Starting on 09/04/25 at 1053, Until 09/04/25 at 1222, Routine, Anesthesia Intraprocedure Given 09/04/2025 11:07 AM EST 15 0 mcg Given 09/04/2025 11:02 AM EST 150 mcg Given 09/04/2025 10:53 AM EST 100 mcg propofol (Diprivan) injection Intravenous, As needed, Starting on e 09/04/25 at 1030, Until e 09/04/25 at 1222, Routine, Anesthesia Intraprocedure Given 09/04/2025 11:22 AM EST 10 mg Given 09/04/2025 10:30 AM EST 90 mg rocuronium (ZeMuron) injection Intravenous, As needed, Starting on e 09/04/25 at 1031, Until 09/04/25 at 1222, Routine, Anesthesia Intraprocedure Given 09/04/2025 10:31 AM EST 50 mg sodium chloride 0.9 % infusion Intravenous, Continuous PRN, Starting on e 09/04/25 at 1103, Until Wed09/04/25 at 1222, Routine New Bag 09/04/2025 11:03 AM EST sugammadex (Bridion) 100 MG/ML injection Intravenous, As needed, Starting on Wed09/04/25 at 1158, Until Wed09/04/25 at 1222, Routine, Anesthesia Intraprocedure Given 09/04/2025 11:58 AM EST 100 mg Transfuse RBC Routine New Bag 09/04/2025 11:03 AM EST vasopressin (Vasostrict) injection Subcutaneous, As needed, Starting on Wed09/04/25 at 1115, Until Wed09/04/25 at 1222, Routine, Anesthesia Intraprocedure Given 09/04/2025 11:46 AM EST 0.5 Units Given 09/04/2025 11:15 AM EST 1 Units documented in this encounter Additional Health Concerns Assessment Noted Time A fall risk assessment has been complete d for the patient 02/01/2024 1:15 PM EDT A Body Mass Index follow-up plan has been documented for the patient 09/07/2025 11:15 AM EST documented as of this encounter Care Teams Ribbon Weaver Relationship Specialty Start Date End Date Srinivasan Smith MD [address] [place] [address] PCP - General Internal Medicine 01/20/22 Pita Martinez MD [address] [place] [address] Referring Physician Interventional Cardiology 12/23/21 documented as of this encounter
--- OUTSIDE RECORDS SUMMARY | 2025-09-11 11:45 | XMS_ITS ---
Author Organization [facility] D HERSON Address [address] [place] [address] Care Team Providers Care [employer] Helicopter Name Role Phone Atul Tara Primary Care Provider [phone] Srinivasan Smith Unavailable [phone] Denita Villagran Unavailable [phone] Allergies Allergen (clinical drug ingredient) Drug/Non Drug Allergy documented on EMR Reaction Allergy Type Onset Date Status amoxicillin / clavulanate Augmentin Unknown Drug Allergy Active REASON FOR VISIT [place] Admission Medications Medication SIG (Take, Route, Frequency, Duration) Notes Start Date End Date Status Euthyrox 137 MCG (0.137 MG) 1 TAB(S) ORALLY ONCE A DAY; Duration: 30 DAYS *Please review and pick correct strength-formulati on from SocialChorus options. If intended option is not shown, discontinue and re-order from Quick Search* 07/05/2024 Active Escitalopram Oxalate 10 MG 1 tab(s) orally once a day; Duration: 90 days Active Memantine HCl 5 MG 1 tab(s) orally 2 times a day; Duration: 90 days Active Jardiance 25 MG 1 tab(s) orally once a day (in the morning); Duration: 90 days Active busPIRone HCl 5 MG 1 tablet Orally Twice a day; Duration: 30 days As needed 08/29/2025 Active Fish Oil 1000 MG 1 cap(s) orally once a day Active Atorvastatin Calcium 80 MG 1 tab(s) orally once a day; Duration: 90 days Active Carvedilol 12.5 MG 1 tab(s) orally 2 times a day; Duration: 90 days Active Isosorbide Mononitrate ER 30 MG 1 tab(s) orally once a day (in the morning); Duration: 90 days Active Cholecalciferol 125 MCG (5000 UT) 1/2 tablet Orally Once a day Active Acetaminophen 325 MG 2 tabs Orally 3 times a day Active Aspirin 81 MG 1 tab(s) orally once a day Active Lisinopril 5 MG 2 tablets Orally Once a day Active Heparin Sodium (Porcine) 5000 UNIT/ML 1 mL Injection 3 times a day Active Folic Acid 1 MG 1 tablet Orally Once a day Active FiberCon 625 MG 1 tablet Orally twice a day Active Cyanocobalamin 1000 MCG 1 tablet Orally Once a day Active Ashley-Alexandru - 1 tablet Orally Once a day Active Melatonin 5 MG 1 tablet in the evening Orally Once a day Active Lokelma 10 GM 1 packet dissolved in water Orally Once a day 5 days Active Problems Problem Type SNOMED Code ICD Code Onset Dates Problem Status W/U Status Risk Notes Problem Senile debility (33353829) Senile debility (R54) Active confirmed Problem Senile osteoporosis (14169528) Senile osteoporosis (M81.0) Active confirmed Problem Chronic kidney disease stage 4 (206985633) Chronic kidney disease (CKD), stage 4 (N18.4) Active confirmed Problem Anemia (894749703) Postoperative anemia (D64.9) Active confirmed Vital Signs Temperature 97.6 degrees Fahrenheit 09/11/20 25 Blood pressure systolic 130 mm Hg 09/11/20 25 Blood pressure diastolic 65 mm Hg 025 Heart Rate 56 /min 09/11/2025 Height 5 ft 2 in in 09/11/2025 Weight 111 lbs 09/11/2025 BMI 20.3 kg/m2 09/11/2025 Encounters Encounter Location Date Provider Diagnosis [address] [address] 09/11/2025 Denita Villagran Status post fracture of left hip Z87.81 ; Senile debility R54 ; Senile osteoporosis M81.0 ; Chronic kidney disease (CKD), stage 4 N18.4 ; Hyperkalemia E87.5 ; ASHLEY (acute kidney injury) N17.9 ; Postoperative anemia D64.9 ; Thrombocytopenia D69.6 ; Hospital discharge follow-up Z51.89 ; Type 2 diabetes mellitus with other specified complication E11.69 ; Postoperative hypothyroidism E89.0 ; ELEONORA (generalized anxiety disorder) F41.1 and Mild cognitive impairment G31.84 Assessments Encounter Date Diagnosis (ICD Code) Assessment Notes Treatment Notes Treatment Clinical Notes Section Notes 09/11/2025 Status post fracture of left hip (ICD-10 - Z87.81) repair at [facility]...has outpatient FU arranged on 09/20. unable to provide support at home. Continue inpatient PT/OT as tolerated in order to maximize return of independent mobility and prevention of recurrent falls 09/11/2025 Senile debility (ICD-10 - R54) age complicates care 09/11/2025 Senile osteoporosis (ICD-10 - M81.0) continue vitamin D, is to have outpatient appt with [facility] 09/11/2025 Chronic kidney disease (CKD), stage 4 (ICD-10 - N18.4) Creatinine on admission to [facility] 3.17, improved now to 1.7 added low dose lisinopril 09/11/2025 Hyperkalemia (ICD-10 - E87.5) 4.1 since admission here, Narcisa complete, monitor 09/11/2025 ASHLEY (acute kidney injury) (ICD-10 - N17.9) improved 09/11/2025 Postoperative anemia (ICD-10 - D64.9) stable, Renal Vitamin added, repeat next week 09/11/2025 Thrombocytopenia (ICD-10 - D69.6) stable, recommend DC Heparin if this trends down or upon discharge home. Folate supplement added at 09/11/2025 Hospital discharge follow-up (ICD-10 - Z51.89) records reviewed 09/11/2025 Type 2 diabetes mellitus with other specified complication (ICD-10 - E11.69) stable on oral regimen 09/11/2025 Postoperative hypothyroidism (ICD-10 - E89.0) continue oral replacement 09/11/2025 ELEONORA (generalized anxiety disorder) (ICD-10 - F41.1) stable escitalopram and low dose buspirone 09/11/2025 Mild cognitive impairment (ICD-10 - G31.84) continue memantine, also complicates care Plan Of Treatment Next Appt Details Follow Up: 1 Week,prn, Reaso n: Provider Name:Tara Arenasluz, 11/13/2025 11:30:00 AM, [address], [place], [address], Progress Notes * Lakesha ROGERDOB:1940 (85 yo F)Acc No.[id number]:09/11/2025 Patient: Lakesha FOLEY Provider: CARMEN Arguello :1940 A ge:85 Y S ex:Female Date:09/11/2025 Address:[address] [place] [address] [place] [address] , [place], [id number] Pcp:Tara Pollard Subjective: * Chief Complaints: * 1 . [place] Admission. * HPI: I ntrim History: Seen today at [place] in transition from [facility]. Admitted there after a fall at home which resulted in left hip fracture requiring surgical repair. Also noted to have significant ASHLEY and hyperkalemia as well as elevated CPK, likely secondary to recent use of oral Bactrim as well as being down for several hours following her fall. Spoke with nursing staff on the day of transfer regarding orders/plan. Underwent LEFT intertrochanteric femur fracture cephalomedullary nailing on 09/04/25 Postop anemia required 1 unit of PRBC with increase of Hgb from 6.5 to 8 Also with chronic thrombocytopenia, stable She is to FU with orthopedics 09/20 and then with BMD clinic to discuss osteoporosis treatment pending improvement in her renal function. Transition of care visit from hospital D ate of admission to hospital: 1 11/04/2024, D ate of receipt of hospital admission report: 11/08/2024,?Date of discharge from hospital: 11/08/2024, D ate of receipt of hospital discharge summary: 11/08/2024, D ischarge medications reviewed and reconciled from hospital: M edications changed (e.g. discontinued, changed or added). * ROS: R ESPIRATORY: no S hortness of breath. n o C ough. ? C ARDIOLOGY: no C hest pain. C ONSTITUTIONAL: no L oss of appetite. n o F ever. W eakness?yes. D ERMATOLOGY: no R rias. G ASTROENTEROLOGY: no N ausea. n o V omiting. n o D iarrhea.?Constipation y es, i mproved with current tx. M USCULOSKELETAL: back pain y es. J oint stiffness y es. J oint pain y es. N EUROLOGY: no T ingling numbness. n o S eizures. I nsomnia? yes, m elatonin as needed. P SYCHOLOGY: High stress level yes. U ROLOGY: no D ifficulty urinating. n o B lood in urine. * Medical History: A sthma, Allergies, NIDDM, Hyperlipidemia, Hypertension, Bicuspid aortic valve, CAD, Subarachnoid hemorrhage, Hypothyriodism, PFO, Roberts's esophagus, C-scope 10/22 with no polyps - extensive diverticulosis, Sucrase- Isomaltase Def, IBS, CKD. 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 * Hospitalization/Major Diagno stic Procedure: Liudmila Chamberlain (Fracture rehab) 10/17, Subarachnoid hemorrhage 03/11, [facility] - left hip fracture 09/2025. * Family History: F ather: . M other: , Heart issues, Dementia , vitamin b12 def.. P aternal Grand Father: . P aternal Grand Mother: . M aternal Grand Father: . M aternal Grand Mother: . P aternal uncle: . P aternal aunt: . S iblings: alive, 2 sisters has diabetes. C nury: alive. 1 brother(s) , 5 sister(s) - healthy. 1 son(s) , 1 daughter(s) - healthy. . N on-Contributory. * Social History: S moking A re you a:: former smoker , How long has it been since you last smoked?: > 10 years. R ecreational drug use: no. Exercise: no. Home smoke detector use: yes. Caffeine: yes, frequency:1 cup of coffee per day. Living Will: Yes. Alcohol: socially, 1-2 cocktails per week. Sexually active: no. Travel outside [place]: no. Occupation: [employer]- retired. Lives with spouse who is blind. * Medications: T aking Ashley-Alexandru - Tablet 1 tablet Orally Once a day , Taking Melatonin 5 MG Tablet 1 tablet in the evening Orally Once a day , Taking Lokelma 10 GM Packet 1 packet dissolved in water Orally Once a day , Notes to Pharmacist: 5 days, Taking Lisinopril 5 MG Tablet 2 tablets Orally Once a day , Taking Heparin Sodium (Porcine) 5000 UNIT/ML Solution 1 mL Injection 3 times a day , Taking Folic Acid 1 MG Tablet 1 tablet Orally Once a day , Taking FiberCon 625 MG Tablet 1 tablet Orally twice a day , Taking Cyanocobalamin 1000 MCG Tablet 1 tablet Orally Once a day , Taking Cholecalciferol 125 MCG (5000 UT) Tablet 1/2 tablet Orally Once a day , Taking Acetaminophen 325 MG Tablet 2 tabs Orally 3 times a day , Taking Aspirin 81 MG Tablet Delayed Release 1 tab(s) orally once a day , Taking Fish Oil 1000 MG Capsule 1 cap(s) orally once a day , Taking Atorvastatin Calcium 80 MG Tablet 1 [...] *Please review and pick correct strength-formulation from iConTextspan options. If intended option is not shown, discontinue and re-order from Quick Search*, Taking Escitalopram Oxalate 10 MG Tablet 1 tab(s) orally once a day , Taking Memantine HCl 5 MG Tablet 1 tab(s) orally 2 times a day , Taking Jardiance 25 MG Tablet 1 tab(s) orally once a day (in the morning) , Taking busPIRone HCl 5 MG Tablet 1 tablet Orally Twice a day As needed, Discontinued Cyproheptadine HCl 4 MG Tablet 1 tab(s) orally once a day at bedtime , Discontinued Lomotil 2.5-0.025 MG Tablet 1 tab orally 3 times a day , Notes to Pharmacist: prn, Discontinued Multivitamin VITAMIN B COMPLEX WITH C AND FOLIC ACID TABLET 1 TAB(S) ORALLY ONCE A DAY , Notes to Pharmacist: *Please review and pick correct strength-formulation from Medispan options. If intended option is not shown, discontinue and re-order from Quick Search*, Medication List reviewed and reconciled with the patient * Allergies: A ugmentin: Side Effects. Objective: * Vitals: P ain: 0, Temp: 97.6, RR: 18, HR: 56, BP: 130/65, Ht: 5 ft 2 in, Wt: 111, BMI:20.3. * Examination: G eneral Examination: General P leasant and Cooperative, NAD on RA,. Heart: Regular Rate and rhythm, 2/6 holosystolic murmur loudest at right sternal border. Lungs: c lear to auscultation,. Abdomen: s oft, NT/ND, BS present. Neurologic Exam: A lert and oriented x 3, moves all extremities. Skin: w ithout acute rashes. Peripheral pulses: n ormal (2+) bilaterally. Extremities: s oft trace edema bilat. neck s upple,, no thyromegaly,, no lymphadenopathy. Psych N ormal Mood/Affect. Assessment: * Assessment: 1. S tatus post fracture of left hip - Z87.81 (Primary) 2 . S enile debility - R54 3 . S enile osteoporosis - M81.0 4 . C hronic kidney disease (CKD), stage 4 - N18.4 5 . H yperkalemia - E87.5 6 . ASHLEY (acute kidney injury) - N17.9 7 . P ostoperative anemia - D64.9 ? 8 . T hrombocytopenia - D69.6 9 . H ospital discharge follow-up - Z51.89 1 0. T ype 2 diabetes mellitus with other specified complication - E11.69 11. P ostoperative hypothyroidism - E89.0 1 2. G AD (generalized anxiety disorder) - F41.1 1 3. M ild cognitive impairment - G31.84 ? Plan: * Treatment: 2. S enile debility Clinical Notes: age complicates care 3. S enile osteoporosis Clinical Notes: continue vitamin D, is to have outpatient appt with [facility] 4. C hronic kidney disease (CKD), stage 4 Clinical Notes: Creatinine on admission to [facility] 3.17, improved now to 1.7 [place] added low dose lisinopril 5. H yperkalemia Clinical Notes: 4.1 since admission here, Lokelma complete, monitor 6. A KI (acute kidney injury) Clinical Notes: improved 7. P ostoperative anemia Clinical Notes: stable, Renal Vitamin added, repeat next week 8. T hrombocytopenia Clinical Notes: stable, recommend DC Heparin if this trends down or upon discharge home. Folate supplement added at 9. H ospital discharge follow-up Clinical Notes: records reviewed 10. T ype 2 diabetes mellitus with other specified complication Clinical Notes: stable on oral regimen 11. P ostoperative hypothyroidism Clinical Notes: continue oral replacement 12. G AD (generalized anxiety disorder) Clinical Notes: stable escitalopram and low dose buspirone 13. M ild cognitive impairment Clinical Notes: continue memantine, also complicates care * Procedure Codes: 9 9496 TRANS CARE MGMT 7 DAY DISCH, 1111F DSCHRG MED/CURRENT MED MERGE * Follow Up: 1 Week,prn * * Sign off status: Completed true * Provider: CARMEN Arguello Date: 11/12/2024 Generated for Carmelita barakat/Memo/eTsaúlitting on: 11/25/2024 06:18 PM EST History and Physical Notes * HPI (History of Present Illness) Category Sub-Category Detail Notes Category Not es [place] History Transition of care v isit from hospital Date of admission to hospital:: 09/03/2025 Date of receipt of hospital admission re port:: 09/07/2025 Date of discharge from hospital:: 2024 Date of receipt of hospital discharge bell mmary:: 09/07/2025 Discharge medications review ed and reconciled from hospital:: Medications changed (e.g. discontinued, changed or added) Examination Category Sub-Category Detail Notes Category Not es General Examination Heart: Regular Rate and rhythm, 2/6 holosystolic murmur loudest at right sternal border Lungs: clear to auscultatio n, Abdomen: soft, NT/ND, BS pres ent Extremities: soft trace edema philip at Skin: without acute rashes Neurologic Exam: Alert and oriented x 3, moves all extremities Peripheral pulses: normal (2+) bilatera lly neck supple,, no thyromeg aislinn,, no lymphadenopathy General Pleasant and Coopera tive, NAD on RA, Psych Normal Mood/Affect
--- OUTSIDE RECORDS SUMMARY | 2025-09-20 10:50 | XMS_ITS | Encounter Summary ---
Author Organization Healthcare Address [address] [place] [address] Care Team Providers Care [employer] Instructor Name Role Phone Pita Martinez MD Unavailable [phone] Srinivasan Smith MD Primary Care Provider [phone] Reason for Referral * Imaging (Urgent) - Closed Specialty Diagnoses / Procedures Referred By Contac t Referred To Contact Cardiology Diagnoses Left leg swelling Procedures VAS US Venous Duplex Lower Extremity Unilateral Left Sarah Hunter PA [address] [facility] [address] [place] [address] Phone: tel: fax: Referral ID Status Reason Start Date Expiration Date V isits Requested Visits Authorized [id number] Closed Perform Procedure 09/20/2025 03/22/2027 1 1 Reason for Visit * Reason Comments Post-op Encounter Details Date Type Department Care Team (Latest Contact Info) Description 09/20/2025 10:50 AM EST Office Visit [facility] [address] [place] [address] Sarah Hunter PA [address] [place] [address] Displaced intertrochanteric fracture of left femur, initial encounter for closed fracture (Primary Dx); Left leg swelling Social History Tobacco Use Types Packs/Day Years Used Date Smoking Tobacco: Former Cigarettes 0.3 30 1 965 1994 Passive Smoke Exposure: Past Smokeless Tobacco: Never Alcohol Use Standard Drinks/Week Comments Not Currently [...] and Family Not on file 09/05/2025 Attends [employer] Not on file 09/05 Active Member [...] any time in the past 12 m [place], were you homeless or living in a prison (including now)? 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 female who presents to clinic for post- operative follow up 2 weeks s/p the above stated procedures. Patient has been doing well since discharge and recently returned home to live with her daughter. Patient/family note today that her left lower extremity is acutely more swollen than the right. She does have pitting edema at baseline 2/2 her CKD4. Focused MSK Exam: Left lower extremity: Well-healed surgical incisions with yasmeen in place 2+ pitting edema of the left lower extremity. Straw colored fluid consistent with lymphorrhoea actively draining from the left lower extremity Fires KF/KE/EHL/FHL/GSC/TA Sensation: SILT bell/sa/sp/dp/t Vascular: Digits WWP, +2 dp/pt pulses XRAY: No new images Assessment: 85 y.o. female who presents 2 weeks s/p the above procedures. Plan: - Continue WBAT LLE - [place] to remain in place today given her diffuse lower extremity edema - STAT venous duplex LLE ordered to rule out blood clot given her swelling - Per patient/family, patient does not have a Supervisor Border Department managed her CKD4. Upon chart review, shewas dicharged from the hospital with ASHLEY on CKD. Given this combined with the presence of draining lymph, I have concern for nephrotic syndrome vs advancing disease. Patient/family report the do havean appointment with their PCP tomorrow. I have asked thwat they brink this to their attention so this can be properly worked up - FU 09/25 with JS for wound check/suture removal - FU 4 weeks, with imaging, with RW The patient was given an opportunity to ask questions and all their questions were answered to their satisfaction. The patient was seen and evaluated by myself. Sarah Hunter, PA-C Department of Orthopaedic Surgery and Sports Medicine documented in this encounter Plan of Treatment Upcoming Encounters Date Type Department Care Team (Late st Contact Info) Description 09/25/2025 12:30 PM EST Office Visit [facility] [address] [place] [address] Sarah Hunter PA [address] [place] [address] 10/24/2025 8:00 AM EST Appointment [facility] Rad[facility] [address] [place] [address] 10/24/2025 8:40 AM EST Office Visit [facility] [address] [place] [address] Jose Antonio Hernández MD [address] [place] [address] 11/21/2025 3:00 PM EST Office Visit [facility] Nephrology, Bone & Mineral Metabolism [address] [facility], [address] [place] [address] Aime Mcelroy MD [address] [place] [address] Scheduled Orders Name Type Priority Associated Diagnoses Orde r Schedule XR Femur Left 2+ Views Imaging Routine Displaced intertrochanteric fracture of left femur, initial encounter for closed fracture 1 Occurrences starting 09/20/2025 until 03/24/2027 documented as of this encounter Results * VAS US Venous Duplex Lower Extremity Unilateral Left (09/20/2025 3:24 PM EST) Anatomical Region Laterality Modality Lower Extremities Ultrasound Impressions 09/20/2025 5:10 PM EST Left: Normal study; no evidence of acute DVT is identified. COMMUNICATION: Per this written report. Preliminary report signed by LESTER [place] on 09/20/2025 3:46 PM By electronically signing this report, I, the attending physician, attest that I have personally reviewed the images/data for the above examination(s) and agree with the final edited report. Drafted by LESTER [place] on 09/20/2025 3:25 PM Final report signed by Wilfred Nicole MD, FACS, FSVS, RPVI on 09/20/2025 5:10 PM Narrative 09/20/2025 5:10 PM EST CLINICAL INDICATION: Acute limb swelling TECHNIQUE: Non-invasive, real time duplex exam of the lower extremity venous circulation with Doppler ultrasonic waveform and spectral analysis was performed. COMPARISON: None. FINDINGS: Right: Venous duplex demonstrates compressible and augmentable common femoral vein. Imaged for comparison purposes. Left: Venous duplex demonstrates compressible common femoral, femoral, popliteal, posterior tibial and peroneal veins. The venous spectral analysis demonstrates a spontaneous, phasic, augmentable and nonpulsatile flow signals at the common femoral, mid femoral and popliteal veins. Procedure Note Wilfred Nicole MD - 09/20/2025 CLINICAL INDICATION: Acute limb swelling TECHNIQUE: Non-invasive, real time duplex exam of the lower extremity venouscirculation with Doppler ultrasonic waveform and spectral analysis wasperformed. COMPARISON: None. FINDINGS: Right: Venous duplex demonstrates compressible and augmentable commonfemoral vein. Imaged for comparison purposes. Left: Venous duplex demonstrates compressible common femoral, femoral,popliteal, posterior tibial and peroneal veins. The venous spectralanalysis demonstrates a spontaneous, phasic, augmentable and nonpulsatileflow signals at the common femoral, mid femoral and popliteal veins. IMPRESSION: Left: Normal study; no evidence of acute DVT is identified. COMMUNICATION: Per this written report. Preliminary report signed by LESTER [place] on 09/20/2025 3:46PM By electronically signing this report, I, the attending physician, attestthat I have personally reviewed the images/data for the aboveexamination(s) and agree with the final edited report. Drafted by LESTER [place] on 09/20/2025 3:25 PM Final report signed by Wilfred Nicole MD, FACS, FSVS, RPVI on09/20/2025 5:10 PM us Sarah HERNANDES CV VASCULAR PROCEDURES Final Result documented in this encounter Visit Diagnoses Diagnosis Displaced intertrochanteric fracture of left femur, initial encounter for closed fracture- Primary Left leg swelling Left leg swelling documented in this encounter Additional Health Concerns Assessment Noted Time A fall risk assessment has been complete d for the patient 09/20/2025 11:07 AM EST A Body Mass Index follow-up plan has been documented for the patient 09/20/2025 11:58 AM EST documented as of this encounter Care Teams [employer] Instructor Relationship Specialty Start Date End Date Srinivasan Smith MD [address] [place] [address] PCP - General Internal Medicine 01/20/22 Pita Martinez MD [address] [place] [id number] Referring Physician Interventional Cardiology 12/23/21 documented as of this encounter
--- OUTSIDE RECORDS SUMMARY | 2025-09-20 14:55 | XMS_ITS | Encounter Summary ---
Author Organization Healthcare Address [address] [place] [address] Care Team Providers Care Can Reconditioner Name Role Phone Pita Martinez MD Unavailable [phone] Srinivasan Smith MD Primary Care Provider [phone] Reason for Referral * Imaging (Urgent) - Closed Specialty Diagnoses / Procedures Referred By Contac t Referred To Contact Cardiology Diagnoses Left leg swelling Procedures VAS US Venous Duplex Lower Extremity Unilateral Left Sarah Hunter PA [address] [place] [phone] Phone: tel: fax: Referral ID Status Reason Start Date Expiration Date V isits Requested Visits Authorized [id number] Closed Perform Procedure 09/20/2025 03/22/2027 1 1 Reason for Visit * Imaging (Urgent) - Closed Specialty Diagnoses / Procedures Referred By Contac t Referred To Contact Cardiology Diagnoses Left leg swelling Procedures VAS US Venous Duplex Lower Extremity Unilateral Left Sarah Hunter PA [address] [place] [address] Phone: tel: fax: Referral ID Status Reason Start Date Expiration Date V isits Requested Visits Authorized [id number] Closed Perform Procedure 09/20/2025 03/22/2027 1 1 Encounter Details Date Type Department Care Team (Latest Contact Info) Description 09/20/2025 2:55 PM EST - 09/20/2025 11:59 PM EST Hospital Encounter [facility] [address] [place] [address] Left leg swelling Discharge Disposition: Home or Self Care Social History Tobacco Use Types Packs/Day Years [...] and Family Not on file 09/05/2025 [facility]ends [employer] Not on file 09/05 Active Member [...] any time in the past 12 m [facility], were you homeless or living in a jail (including now)? No 09/05/2025 [facility] Utilities Answer Date Recorded In the past [...] drink first t rei in the morning (EYE-CROSSING FLAGMAN) to steady your nerves or to get rid of a hangover? 0 09/03/2025 CAGE Questionnaire Score 0 025 Comments No Sex and Gender Information Value Date Recorded Sex Assigned at Female 11/12/2021 2:47 PM EST Legal Sex Female 7:27 PM EDT Gender Identity Female 11/12/2021 2:47 PM EST Sexual Orientation Not on file documented as of this encounter Medications at Time of Discharge [...] hours for 15 days. 09/07/2025 09/22/20 25 documented as of this encounter Plan of Treatment Upcoming Encounters Date Type Department Care Team (Late st Contact Info) Description 09/25/2025 12:30 PM EST Office Visit [facility] [address] [place] [address] Sarah Hunter PA [address] [place] [address] 10/24/2025 8:00 AM EST Appointment [facility] Radiology [address] [place] [address] 10/24/2025 8:40 AM EST Office Visit [facility] Medicine [address] [place] [address] Jose Antonio Hernández MD [address] [place] [address] 11/21/2025 3:00 PM EST Office Visit [facility] Nephrology, Bone & Mineral Metabolism [address] [facility], [address] [place] [address] Aime Mcelroy MD [address] [place] [address] documented as of this encounter Procedures Procedure Name Priority Date/Time Associated Diagnosis Comments VAS US VENOUS DUPLEX LOWER EXTREMITY UNILATERAL Routine 09/20/2025 3:24 PM EST Left leg swelling documented in this encounter Results * VAS US Venous [...] Final report signed by Wilfred Nicole MD, BETHEL, FSDENI, PAIGE on 09/20/2025 5:10 PM Narrative 09/20/2025 5:10 [...] Final report signed by Wilfred Nicole MD, BETHEL, FSDENI, PAIGE on09/20/2025 5:10 PM us Sarah HERNANDES CV VASCULAR PROCEDURES Final Result documented in this encounter Visit Diagnoses Diagnosis Left leg swelling documented in this encounter Additional Health Concerns Assessment Noted Time A fall risk assessment has been complete d for the patient 09/20/2025 11:07 AM EST A Body Mass Index follow-up plan has been documented for the patient 09/20/2025 11:58 AM EST documented as of this encounter Care Teams Can Reconditioner Relationship Specialty Start Date End Date Srinivasan Smith MD [address] [place] [address] PCP - General Internal Medicine 01/20/22 Pita Martinez MD [address] [place] [address] Referring Physician Interventional Cardiology 12/23/21 documented as of this encounter
--- OUTSIDE RECORDS SUMMARY | 2025-09-21 10:00 | XMS_ITS ---
Author Organization [facility]ly [facility] Address [address] [place] [address] [place] [address] Care Team Providers Care Service Technician Name Role Phone AzarTara Carrasquillo Primary Care Provider [phone] Srinivasan Smith Unavailable [phone] Allergies Allergen (clinical drug ingredient) Drug/Non Drug Allergy documented on EMR Reaction Allergy Type Onset Date Status amoxicillin / clavulanate Augmentin Unknown Drug Allergy Active REASON FOR VISIT [facility] FU, edema in lt leg Medications Medication SIG (Take, Route, Frequency, Duration) Notes Start Date End Date Status Escitalopram Oxalate 10 MG 1 tab(s) orally once a day; Duration: 90 days Active Memantine HCl 5 MG 1 tab(s) orally 2 times a day; Duration: 90 days Active Melatonin 5 MG 1 tablet in the evening Orally Once a day Active Fish Oil 1000 MG 1 cap(s) orally once a day Active Euthyrox 137 MCG (0.137 MG) 1 TAB(S) ORALLY ONCE A DAY; Duration: 30 DAYS *Please review and pick correct strength-formulati on from Medispan options. If intended option is not shown, discontinue and re-order from Quick Search* 07/05/2024 Active Jardiance 25 MG 1 tab(s) orally once a day (in the morning); Duration: 90 days Active Aspirin 81 MG 1 tab(s) orally once a day Active Lisinopril 5 MG 1 tab Orally Once a day Active Isosorbide Mononitrate ER 30 MG 1 tab(s) orally once a day (in the morning); Duration: 90 days Active busPIRone HCl 5 MG 1 tablet Orally Twice a day; Duration: 30 days As needed 08/29/2025 Active FiberCon 625 MG 1 tablet Orally twice a day Active Cyanocobalamin 1000 MCG 1 tablet Orally Once a day Active Atorvastatin Calcium 80 MG 1 tab(s) orally once a day; Duration: 90 days Active Folic Acid 1 MG 1 tablet Orally Once a day Active Cholecalciferol 125 MCG (5000 UT) 1/2 tablet Orally Once a day Active Carvedilol 12.5 MG 1 tab(s) orally 2 times a day; Duration: 90 days Active Acetaminophen 325 MG 2 tabs Orally 3 times a day Active Senna 8.6 MG 2 tablets at bedtime as needed Orally Once a day Active MiraLax 17 GM/SCOOP as directed Orally Active Sodium Zirconium Cyclosilicate 10 GM 1 packet dissolved in water Orally Once a day Active Vital Signs Temperature 97.6 degrees Fahrenheit 09/21/20 25 Blood pressure systolic 122 mm Hg 09/21/20 25 Blood pressure diastolic 78 mm Hg 025 Heart Rate 60 /min 09/21/2025 Height 5 ft 2 in in 09/21/2025 Weight 111 lbs 09/21/2025 BMI 20.3 kg/m2 09/21/2025 Encounters Encounter Location Date Provider Diagnosis [address] [address] 09/21/2025 Tara Pollard Senile debility R54 ; Status post fracture of left hip Z87.81 ; Senile osteoporosis M81.0 ; Chronic kidney disease (CKD), stage 4 N18.4 ; Hyperkalemia E87.5 ; Postoperative anemia D64.9 ; Thrombocytopenia D69.6 ; Type 2 diabetes mellitus with other specified complication E11.69 ; Postoperative hypothyroidism E89.0 ; ELEONORA (generalized anxiety disorder) F41.1 and Mild cognitive impairment G31.84 Assessments Encounter Date Diagnosis (ICD Code) Assessment Notes Treatment Notes Treatment Clinical Notes Section Notes 09/21/2025 Senile debility (ICD-10 - R54) Complicates aspects of care 09/21/2025 Status post fracture of left hip (ICD-10 - Z87.81) [facility], [facility] notes reviewed Keep LE elevated while up in chair Wound care per home health Home health to draw CBC and CMP on Wednesday to confirm stability. Pain is well controlled. Keep FU with ortho next week No changes made in POC of chair today 09/21/2025 Senile osteoporosis (ICD-10 - M81.0) COntinue vit d, keep FU with [facility] continue vitamin D, is to have outpatient appt with [facility] 09/21/2025 Chronic kidney disease (CKD), stage 4 (ICD-10 - N18.4) Creatinine 1.7 during LTC stay Continue lisinopril as added by nephrology during inpatient stay 09/21/2025 Hyperkalemia (ICD-10 - E87.5) 4.1 during LTC stay Plan to repeat on Wednesday 4.1 since admission here, Narcisa ham, monitor 09/21/2025 Postoperative anemia (ICD-10 - D64.9) Continue renal vitamin daily. Stable during LTC stay CBC again on Wednesday. 09/21/2025 Thrombocytopenia (ICD-10 - D69.6) Stable around 120 on last CBC 09/21/2025 Type 2 diabetes mellitus with other specified complication (ICD-10 - E11.69) Stable for some time 09/21/2025 Postoperative hypothyroidism (ICD-10 - E89.0) Continue synthroid 09/21/2025 ELEONORA (generalized anxiety disorder) (ICD-10 - F41.1) Stable on current regimen. 09/21/2025 Mild cognitive impairment (ICD-10 - G31.84) Complicates all aspects of care Confusion has been worse with multiple environment changes over the last few months which is expected. Has strong family support with daughter, granddaughter and son. They are overseeing her medications. Expect some improvement, hopefully to baseline, over the next 4-6 weeks as she acclimates back to her familiar home environment. Continue memantine.Re-otoniel gomezate at fu in 6 weeks Plan Of Treatment Treatment Notes Assessment Notes Senile debility Complicates aspects of care Status post fracture of left hip [facility], [facility] notes reviewed Keep LE elevated while up in chair Wound care per home health Home health to draw CBC and CMP on Wednesday to confirm stability. Pain is well controlled. Keep FU with ortho next week No changes made in POC of chair today Senile osteoporosis COntinue vit d, keep FU with [facility] Chronic kidney disease (CKD), stage 4 Creatinine 1.7 during LTC stay Continue lisinopril as added by nephrology during inpatient stay Hyperkalemia 4.1 during LTC stay Plan to repeat on Wednesday Postoperative anemia Continue renal vitamin daily. Stable during LTC stay CBC again on Wednesday. Thrombocytopenia Stable around 120 on last CBC Type 2 diabetes mellitus wit h other specified complication Stable for some time Postoperative hypothyroidism Continue sy nthroid ELEONORA (generalized anxiety disorder) Stabl e on current regimen. Mild cognitive impairment Complicates all aspects of care Confusion has been worse with multiple environment changes over the last few months which is expected. Has strong family support with daughter, granddaughter and son. They are overseeing her medications. Expect some improvement, hopefully to baseline, over the next 4-6 weeks as she acclimates back to her familiar home environment. Continue memantine.Re-evaluate at fu in 6 weeks Next Appt Details Follow Up: 6 Weeks, Reason: Provider Name:Tara Garcia, 11/13/2025 11:30:00 AM, [address] [place] [facility] [address] [facility], [address], [place], [address], Progress Notes * EREN KassietaylorDOB:1940 (85 yo F)Acc No.[id number]:09/21/2025 Progress Notes Patient: Lakesha FOLEY Provider: Nae Pollard APRN :1940 A ge:85 Y S ex:Female Date:09/21/2025 Address:[address] [place] [address] [id number] Subjective: * Chief Complaints: * 1 . [facility] FU. 2. Edema in lt leg. * HPI: g en: 85 y/o female presents today with her daughter for LTC FU visit. Patient experienced fall at home resulting in left hip fracture. Underwent surgical repair. Had some post-operative anemia requiring transfusion of 1 unit PRBC. ASHLEY on CKD with hyperkalemia. She completed course of Lokelma with normalization of potassium, and CKD improved to baseline during her LTC stay. Seen by ortho yesterday. Unable to remove sutures due to LE edema with lower leg seepage. She has been elevating her left leg with unna boot placed by home health. Denies any pain. She is ambulating a few steps in the home, using WC outside the home. Home appointment with ortho to re-evaluate next week Daughter reports confusion has been worse. Prior to fall patient had moved from shelter home in [place] to new home in [place]. This was difficult as her is blind, and he struggled with the transition increasing her caregiver burden. Since discharge from [facility] they have moved back to [place]. Mrs. Roger is pleasant. Denies CP, SOA or dizziness. VSS. She is set up with home health for PT, OT and nursing. She has no acute concerns today. * ROS: R ESPIRATORY: no S hortness of breath. n o C ough. ? C ARDIOLOGY: no D izziness. n o C hest pain. L eg edema y es. n o S hortness of breath. C ONSTITUTIONAL: no L oss of appetite. n o F ever. W eakness?yes. D ERMATOLOGY: no R risa. G ASTROENTEROLOGY: no N ausea. n o V omiting. n o D iarrhea.?Constipation y es, i mproved with current tx. M USCULOSKELETAL: back pain y es. J oint stiffness y es. J oint pain y es. N EUROLOGY: no T ingling numbness. n o S eizures. I nsomnia?yes. P SYCHOLOGY: High stress level y es. U ROLOGY: no D ifficulty urinating. n [...] - [facility] 04/2016, hernia repair 03/2018, T[facility]R 01/2022, [facility] - left intertrochanteric fracture cephalomedullary nailing 09/2025. * Hospitalization/Major Diagno stic Procedure: Liudmila Chamberlain (Fracture rehab) 10/17, Subarachnoid hemorrhage 03/11, [facility] - left hip fracture 09/2025. * Family History: F ather: . M other: , Heart issues, Dementia , vitamin b12 def.. P aternal Grand Father: . P aternal Grand Mother: . M aternal Grand Father: . M aternal Grand Mother: . P aternal uncle: . P aternal aunt: . S ibnatalio: alive, 2 sisters has diabetes. C nury: [...] active: no. Travel outside [place]: no. 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 Lives with spouse who is blind. * Medications: T aking Sodium Zirconium Cyclosilicate 10 GM Packet 1 packet dissolved in water Orally Once a day , Taking Senna 8.6 MG Tablet 2 tablets at bedtime as needed Orally Once a day , Taking MiraLax 17 GM/SCOOP Powder as directed Orally , Taking Carvedilol 12.5 MG Tablet 1 tab(s) orally 2 times a day , Taking Acetaminophen 325 MG Tablet 2 tabs Orally 3 times a day , Taking Cholecalciferol 125 MCG (5000 UT) Tablet 1/2 tablet Orally Once a day , Taking Folic Acid 1 MG Tablet 1 tablet Orally Once a day , Taking Cyanocobalamin 1000 MCG Tablet 1 tablet Orally Once a day , Taking Atorvastatin Calcium 80 MG Tablet 1 tab(s) orally once a day , Taking busPIRone HCl 5 MG Tablet 1 tablet Orally Twice a day As needed, Taking FiberCon 625 MG Tablet 1 tablet Orally twice a day , Taking Isosorbide Mononitrate ER 30 MG Tablet Extended Release 24 Hour 1 tab(s) orally once a day (in the morning) , Taking Aspirin 81 MG Tablet Delayed Release 1 tab(s) orally once a day , Taking Lisinopril 5 MG Tablet 1 tab Orally Once a day , Taking Euthyrox 137 MCG (0.137 MG) TABLET 1 TAB(S) ORALLY ONCE A DAY , Notes to Pharmacist: *Please review and pick correct strength-formulation from Medispan options. If intended option is not shown, discontinue and re-order from Quick Search*, Taking Jardiance 25 MG Tablet 1 tab(s) orally once a day (in the morning) , Taking Melatonin 5 MG Tablet 1 tablet in the evening Orally Once a day , Taking Fish Oil 1000 MG Capsule 1 cap(s) orally once a day , Taking Memantine HCl 5 MG Tablet 1 tab(s) orally 2 times a day , Taking Escitalopram Oxalate 10 MG Tablet 1 tab(s) orally once a day , Discontinued Ashley-Alexandru - Tablet 1 tablet Orally Once a day , Medication List reviewed and reconciled with the patient * Allergies: A ugmentin: Side Effects. Objective: * Vitals: N urse: dw, Pain: 0, Temp: 97.6, RR: 18, HR: 60, BP: 122/78, Ht: 5 ft 2 in, Wt: 111, BMI:20.3. Assessment: * Assessment: 1. S tatus post fracture of left hip - Z87.81 (Primary) 2 . S enile debility - R54 3 . S enile osteoporosis - M81.0 4 . C hronic kidney disease (CKD), stage 4 - N18.4 5 . H yperkalemia - E87.5 6 . Postoperative anemia - D64.9 7 . T hrombocytopenia - D69.6 8 . T ype 2 diabetes mellitus with other specified complication - E11.69 9 . P ostoperative hypothyroidism - E89.0 1 0. G AD (generalized anxiety disorder) - F41.1 1 1. M ild cognitive impairment - G31.84 Plan: * Treatment: 2. S enile debility Notes: Complicates aspects of care 3. S enile osteoporosis Notes: COntinue vit d, keep FU with [facility] Clinical Notes: continue vitamin D, is to have outpatient appt with [facility] 4. C hronic kidney disease (CKD), stage 4 Notes: Creatinine 1.7 during LTC stay Continue lisinopril as added by nephrology during inpatient stay 5. H yperkalemia Notes: 4.1 during LTC stay Plan to repeat on Wednesday Clinical Notes: 4.1 since admission here, Lokelma complete, monitor 6. P ostoperative anemia Notes: Continue renal vitamin daily. Stable during LTC stay CBC again on Wednesday. 7. T hrombocytopenia Notes: Stable around 120 on last CBC 8. T ype 2 diabetes mellitus with other specified complication Notes: Stable for some time 9. P ostoperative hypothyroidism Notes: Continue synthroid 10. G AD (generalized anxiety disorder) Notes: Stable on current regimen. 11. M ild cognitive impairment Notes: Complicates all aspects of care Confusion has been worse with multiple environment changes over the last few months which is expected. Has strong family support with daughter, granddaughter and son. They are overseeing her medications. Expect some improvement, hopefully to baseline, over the next 4-6 weeks as she acclimates back to her familiar home environment. Continue memantine.Re-evaluate at fu in 6 weeks * Follow Up: 6 Weeks * * Sign off status: Completed true * Provider: Nae Pollard APRN Date: 11/22/2024 Generated for Carmelita barakat/Memo/Capri on: 11/25/2024 06:19 PM EST History and Physical Notes * HPI (History of Present Illness) Category Sub-Category Detail Notes Category Not es gen 85 y/o female presents today with her daughter for LTC FU visit. Patient experienced fall at home resulting in left hip fracture. Underwent surgical repair. Had some post-operative anemia requiring transfusion of 1 unit PRBC. ASHLEY on CKD with hyperkalemia. She completed course of Lokelma with normalization of potassium, and CKD improved to baseline during her LTC stay. Seen by ortho yesterday. Unable to remove sutures due to LE edema with lower leg seepage. She has been elevating her left leg with unna boot placed by home health. Denies any pain. She is ambulating a few steps in the home, using WC outside the home. Home appointment with ortho to re-evaluate next week Daughter reports confusion has been worse. Prior to fall patient had moved from salvage determiner home in [place] to new home in [place]. This was difficult as her is blind, and he struggled with the transition increasing her caregiver burden. Since discharge from [facility] they have moved back to [place]. Mrs. Roger is pleasant. Denies CP, SOA or dizziness. VSS. She is set up with home health for PT, OT and nursing. She has no acute concerns today.
[2025-09-24] VITALS (16 sets, daily range): BP systolic 169–204; BP diastolic 64–80; PULSE 62–69; RESP 12–19; TEMP 36.8; O2SAT 95–100; BMI 23.8
--- OUTSIDE RECORDS SUMMARY | 2025-09-24 18:17 | XMS_ITS | Encounter Summary ---
Author Organization Healthcare Address [address] [place] [address] Care Team Providers Care Retail Product Demo Specialist Name Role Phone Pita Martinez MD Unavailable [phone] Srinivasan Smith MD Primary Care Provider [phone] Encounter Details Date Type Department Care Team (Late st Contact Info) Description 09/03/2025 Orders Only External Location [address] [place] [address] [place] [address] Social History Tobacco Use Types Packs/Day Years [...] and Family Not on file 09/05/2025 Attends [employer] Not on file 09/05 Active Member [...] any time in the past 12 m [facility], were you homeless or living in a fpc (including now)? No 09/05/2025 [facility] Utilities Answer Date Recorded In the past [...] drink first t rei in the morning (EYE-UNHAIRING MACHINE OPERATOR) to steady your nerves or to get [...] Answer Date of Assessment Author Precautions Fall risk;[facility] surveillance 09/07/2025 7:00 AM Marley Mejia RN [...] Answer Date of Assessment Author Precautions Fall risk;[facility] surveillance 09/07/2025 7:00 AM aMrley Mejia RN * Calculated C-SSRS Risk Score (Lifetime/Recent) Answer Date of Assessment Author No Risk Indicated 09/07/2025 7:00 AM Marley Mejia RN * Question Answer Date of Assessment Author 1. Wish to be (Past 1 Month) No 7:00 AM EST Marley Almonte RN 2. Non-Specific Active Suici colton Thoughts (Past 1 Month) No 09/07/2025 7:00 AM EST Marley Almonte RN 6. Suicidal Behavior (Lifetime) No 7:00 AM EST Marley Almonte RN documented as of this encounter Mental Status * Question Answer Entry Date Author Precautions Fall risk;[facility] surveillance 09/07/2025 7:00 AM EST Marley Almonte RN documented in this encounter Plan of Treatment Upcoming Encounters Date Type Department Care Team (Late st Contact Info) Description 09/25/2025 12:30 PM EST Office Visit [facility] Orthopaedic Surgery & Sports Medicine [address] [place] [address] Sarah Hunter PA [address] [facility] [address] [place] [address] 10/24/2025 8:00 AM EST Appointment [facility] Radiology [address], [address] [place] [address] 10/24/2025 8:40 AM EST Office Visit [facility] Orthopa[facility] Surgery [facility] Medicine [address] [place] [address] Jose Antonio Hernández MD [address] [facility] [address] [place] [address] 11/21/2025 3:00 PM EST Office Visit [facility] Nephrology, Bone & Mineral Metabolism [address] [facility], [address] [place] [address] Aime Mcelroy MD [address] [place] [address] documented as of this encounter Procedures Procedure Name Priority Date/Time Associated Diagnosis Comments XR THORACIC OUTSIDE IMAGES 09/03/2025 4:16 AM EST documented in this encounter Results * XR THORACIC OUTSIDE IMAGES (09/03/2025 4:16 AM EST) Anatomical Region Laterality Modality Radiographic Kristel ging 09/03/2025 4:16 AM EST us David Francisco MD IMG XR PROCEDURES Edited Resul t - Final documented in this encounter Visit Diagnoses Not on filedocumented in this encounter Additional Health Concerns Assessment Noted Time A fall risk assessment has been complete d for the patient 02/01/2024 1:15 PM EDT A Body Mass Index follow-up plan has been documented for the patient 09/07/2025 11:15 AM EST documented as of this encounter Care Teams Retail Product Demo Specialist Relationship Specialty Start Date End Date Srinivasan Smith MD [address] [place] [address] PCP - General Internal Medicine 01/20/22 Pita Martinez MD [address] [place] [phone] Referring Physician Interventional Cardiology 12/23/21 documented as of this encounter
--- OUTSIDE RECORDS SUMMARY | 2025-09-24 18:17 | XMS_ITS | Encounter Summary ---
Author Organization Healthcare Address [address] [place] [address] Care Team Providers Care Hearing Officer Name Role Phone Pita Martinez MD Unavailable [phone] Srinivasan Smith MD Primary Care Provider [phone] Encounter Details Date Type Department Care Team (Latest Contact Info) Description 09/03/2025 Travel Social History Tobacco Use Types Packs/Day Years Used Date Smoking Tobacco: Former Cigarettes 0.3 30 [id number] Passive Smoke Exposure: Past Smokeless Tobacco: Never Alcohol Use Standard Drinks/Week Comments Yes 0 (1 standard drink = 0.6 oz pur e alcohol) Social, every blue hearn PHQ-2 Answer Date Recorded Patient Health Questionnaire-2 Score 0 02/01/2024 CAGE ASSESSMENT Answer Date Recorded Cage unable [...] drink first t rei in the morning (EYE-COTTAGE SUPERVISOR) to steady your nerves or to get [...] Date of Assessment Author Precautions Fall risk 09/03/2025 11:00 PM EST Tamiko Ingram CNA * Calculated C-SSRS Risk Score (Lifetime/Recent) Answer Date of Assessment Author No Risk Indicated 09/03/2025 8:00 PM EST Damaris Adair RN * Question Answer Date of Assessment Author 1. Wish to be (Past 1 Month) No 09/03/2025 8:00 PM EST Damaris Cunningham, FILIBERTO 2. Non-Specific Active Suici colton Thoughts (Past 1 Month) No 09/03/2025 8:00 PM EST Richi Cunningham RN 6. Suicidal Behavior (Lifetime) No 8:00 PM EST Damaris Cunningham RN documented as of this encounter Mental Status * Question Answer Entry Date Author Precautions Fall risk 09/03/2025 11:00 PM EST Tamiko Ingram CNA documented in this encounter Plan of Treatment Upcoming Encounters Date Type Department Care Team (Late st Contact Info) Description 09/25/2025 12:30 PM EST Office Visit [facility] Orthopaedic Surgery & Sports Medicine [address], [facility] Floor Wing [address] [place] [address] Sarah Hunter PA [address] [place] [address] 10/24/2025 8:00 AM EST Appointment [facility] Radiology [address], 1st [place] [address] 10/24/2025 8:40 AM EST Office Visit [facility] Orthopaedic Surgery & Sports Medicine [address], [facility] Floor Wing [address] [place] [address] Jose Antonio Hernández MD [address] [place] [address] 11/21/2025 3:00 PM EST Office Visit [facility] Nephrology, Bone & Mineral Metabolism [address] [facility], [address] [place] [address] Aime Mcelroy MD [address] [place] [address] documented as of this encounter Visit Diagnoses Not on filedocumented in this encounter Additional Health Concerns Assessment Noted Time A fall risk assessment has been complete d for the patient 02/01/2024 1:15 PM EDT A Body Mass Index follow-up plan has been documented for the patient 09/07/2025 11:15 AM EST documented as of this encounter Care Teams Hearing Officer Relationship Specialty Start Date End Date Srinivasan Smith MD [address] [place] [address] PCP - General Internal Medicine 01/20/22 Pita Martinez MD [address] [place] [address] Referring Physician Interventional Cardiology 12/23/21 documented as of this encounter
--- OUTSIDE RECORDS SUMMARY | 2025-09-24 18:17 | XMS_ITS | Encounter Summary ---
Author Organization Healthcare Address [address] [place] [address] Care Team Providers Care Insight Leader Name Role Phone Pita Martinez MD Unavailable [phone] Srinivasan Smith MD Primary Care Provider [phone] Encounter Details Date Type Department Care Team (Late st Contact Info) Description 09/03/2025 Orders Only External Location [address] [place] [address] Provider, External Social History Tobacco Use Types Packs/Day Years [...] and Family Not on file 09/05/2025 Attends Sikh Services Not on file 09/05 Active Member [...] any time in the past 12 m [facility], were you homeless or living in a fci (including now)? No 09/05/2025 [facility] Utilities Answer Date Recorded In the past [...] drink first t rei in the morning (EYE-DITCH RIDER) to steady your nerves or to get [...] Answer Date of Assessment Author Precautions Fall risk;[facility] surveillance 09/07/2025 7:00 AM Marley Mejia RN [...] Answer Date of Assessment Author Precautions Fall risk;[facility] surveillance 09/07/2025 7:00 AM Marley Mejia RN [...] Question Answer Entry Date Author Precautions Fall risk;[facility] surveillance 09/07/2025 7:00 AM EST Marley Almonte RN documented in this encounter Plan of Treatment Upcoming Encounters Date Type Department Care Team (Late st Contact Info) Description 09/25/2025 12:30 PM EST Office Visit [facility] Orthopaedic Surgery & Sports Medicine [address], 1st Floor [address] [place] [address] Sarah Hunter PA [address] [place] [address] 10/24/2025 8:[address] [facility] Radiology [address], 1st [place] [address] 10/24/2025 8:40 AM EST Office [facility] Orthopaedic Surgery & Sports Medicine [address], 1st Floor [address] [place] [address] Jose Antonio Hernández MD [address] [place] [address] 11/21/2025 3:00 PM EST Office Visit [facility] Nephrology, Bone & Mineral Metabolism [address] [facility], [address] [place] [address] Aime Mcelroy MD [address] [place] [address] documented as of this encounter Procedures Procedure Name Priority Date/Time Associated Diagnosis Comments CT NEURO OUTSIDE IMAGES 09/03/2025 4:39 AM EST documented in this encounter Results * CT NEURO OUTSIDE IMAGES (09/03/2025 4:39 AM EST) Anatomical Region Laterality Modality Computed Tomogra phy 09/03/2025 4:39 AM EST us External Provider IMG CT PROCEDURES Edited Resul t - Final documented in this encounter Visit Diagnoses Not on filedocumented in this encounter Additional Health Concerns Assessment Noted Time A fall risk assessment has been complete d for the patient 02/01/2024 1:15 PM EDT A Body Mass Index follow-up plan has been documented for the patient 09/07/2025 11:15 AM EST documented as of this encounter Care Teams Insight Leader Relationship Specialty Start Date End Date Srinivasan Smith MD [address] [place] [address] PCP - General Internal Medicine 01/20/22 Pita Martinez MD [address] [place] [phone] Referring Physician Interventional Cardiology 12/23/21 documented as of this encounter
--- OUTSIDE RECORDS SUMMARY | 2025-09-24 18:17 | XMS_ITS | Encounter Summary ---
Author Organization Healthcare Address [address] [place] [address] Care Team Providers Care Janitor Cleaner Name Role Phone Pita Martinez MD Unavailable [phone] Srinivasan Smith MD Primary Care Provider [phone] Encounter Details Date Type Department Care Team (Late st Contact Info) Description 09/03/2025 Orders Only External Location [address] [place] [address] Provider, External Social History Tobacco Use Types [...] and Family Not on file 09/05/2025 Attends [employer] Not on file 09/05 Active Member [...] any time in the past [address] [facility], were you homeless or living in a longterm (including now)? No 09/05/2025 [facility] Utilities Answer Date Recorded In [...] drink first t rei in the morning (EYE-JANITORIAL SUPERVISOR) to steady your nerves or to [...] Answer Date of Assessment Author Precautions Fall risk;[facility] surveillance 09/07/2025 7:00 AM Marley Mejia RN [...] Answer Date of Assessment Author Precautions Fall risk;[facility] surveillance 09/07/2025 7:00 AM Marley Mejia RN [...] Orthopaedic Surgery & Sports Medicine [address], 1st Floor [address] [place] [address] Sarah Hunter PA [address] [place] [address] 10/24/2025 8:00 AM EST Appointment [facility] Radiology [address], 1st [place] [address] 10/24/2025 8:40 AM EST Office Visit [facility] Orthopaedic Surgery & Sports Medicine [address], 1st Floor [address] [place] [address] Jose Antonio Hernández MD [address] [place] [address] 11/21/2025 3:00 PM EST [facility] Visit [facility] Nephrology, Bone & Mineral Metabolism [address] [facility], [address] [place] [address] Aime Mcelroy MD [address] [place] [address] documented as of this encounter Procedures Procedure Name Priority Date/Time Associated Diagnosis Comments CT NEURO OUTSIDE IMAGES 09/03/2025 4:41 AM EST documented in this encounter Results * CT NEURO OUTSIDE IMAGES (09/03/2025 4:41 AM EST) Anatomical Region Laterality Modality Computed Tomogra phy 09/03/2025 4:41 AM EST us External Provider IMG CT [...] documented as of this encounter Care Teams Janitor Cleaner Relationship Specialty Start Date End Date Srinivasan Smith MD [address] [place] [address] PCP - General Internal Medicine 01/20/22 Pita Martinez MD [address] [place] [address] Referring Physician Interventional Cardiology 12/23/21 documented as of this encounter
--- OUTSIDE RECORDS SUMMARY | 2025-09-24 18:17 | XMS_ITS | Encounter Summary ---
Author Organization Healthcare Address [address] [place] [address] Care Team Providers Care Class B Driver Name Role Phone Pita Martinez MD Unavailable [phone] Srinivasan Smith MD Primary Care Provider [phone] Encounter Details Date Type Department Care Team (Late st Contact Info) Description 09/03/2025 Orders Only External Location [address] [place] [address] [place] [address] Social History Tobacco [...] and Family Not on file 09/05/2025 Attends Confucianist Services Not on file 09/05 Active Member [...] any time in the past 12 m [facility], were you homeless or living in a prison (including now)? No 09/05/2025 [facility] Utilities Answer Date Recorded In the [...] drink first t rei in the morning (EYE-BOOKKEEPING ASSISTANT) to steady your nerves or to get [...] Date of Assessment Author Precautions Fall risk;[facility] surveillance 09/07/2025 7:00 AM Marley Mejia RN [...] Date of Assessment Author Precautions Fall risk;[facility] surveillance 09/07/2025 7:00 AM Marley Mejia RN [...] Description 09/25/2025 12:30 PM EST Office Visit [facility] Orthopaedic Surgery & Sports Medicine [address], 1st Floor [address] [place] [address] Sarah Hunter PA [address] [facility] [address] [place] [address] 10/24/2025 8:00 AM EST Appointment [facility] Radiology [address], 1st [place] [address] 10/24/2025 8:40 AM EST Office Visit [facility] Orthopaedic Surgery & Sports Medicine [address], 1st Floor [address] [place] [address] Jose Antonio Hernández MD [address] [facility] [address] [place] [address] 11/21/2025 3:00 PM EST Office Visit [facility] Nephrology, Bone & Mineral Metabolism [address] [facility], [address] [place] [address] Aime Mcelroy MD [address] [place] [address] documented as of this encounter Procedures Procedure Name Priority Date/Time Associated Diagnosis Comments XR MSK OUTSIDE IMAGES 09/03/2025 4:11 AM EST documented in this encounter Results * XR MSK OUTSIDE IMAGES (09/03/2025 4:11 AM EST) Anatomical Region Laterality Modality Radiographic Kristel ging 09/03/2025 4:11 AM EST us David Francisco MD IMG [...] documented as of this encounter Care Teams Class B Driver Relationship Specialty Start Date End Date Srinivasan Smith MD [facility] [place] [address] PCP - General Internal Medicine 01/20/22 Pita Martinez MD [address] [place] [address] Referring Physician Interventional Cardiology 12/23/21 documented as of this encounter
--- OUTSIDE RECORDS SUMMARY | 2025-09-24 18:17 | XMS_ITS | Encounter Summary ---
Author Organization Healthcare Address [address] [place] [address] Care Team Providers Care E Commerce Web Developer Name Role Phone Pita Martinez MD Unavailable [phone] Srinivasan Smith MD Primary Care Provider [phone] Encounter Details Date Type Department Care Team (Late st Contact Info) Description 09/03/2025 Orders Only External Location [address] [place] [address] [place] [address] Social History Tobacco [...] and Family Not on file 09/05/2025 Attends [employer] Not on file 09/05 Active Member [...] any time in the past 12 m [facility], were you homeless or living in a mcfp (including now)? No 09/05/2025 [facility] Utilities Answer Date Recorded In the [...] drink first t rei in the morning (EYE-HIGH SCHOOL PRINCIPAL) to steady your nerves or to get [...] Answer Date of Assessment Author Precautions Fall risk;[facility] surveillance 09/07/2025 7:00 AM Marley [...] Answer Date of Assessment Author Precautions Fall risk;[facility] surveillance 09/07/2025 7:00 AM Marley [...] Description 09/25/2025 12:30 PM EST Office Visit [facility] Orthopaedic Surgery & Sports Medicine [address], 1st Floor [address] [place] [address] Sarah Hunter PA [address] [facility] [address] [place] [address] 10/24/2025 8:00 AM EST Appointment [facility] Radiology [address], 1st [place] [address] 10/24/2025 8:40 AM EST Office Visit [facility] Orthopaedic Surgery & Sports Medicine [address], 1st Floor [address] [place] [address] Jose Antonio Hernández MD [address] [facility] [address] [place] [address] 11/21/2025 3:00 PM EST Office Visit [facility] Nephrology, Bone & Mineral Metabolism [address] [facility], [address] [place] [address] Aime Mcelroy MD [address] [place] [address] documented as of this encounter Procedures Procedure Name Priority Date/Time Associated Diagnosis Comments XR MSK OUTSIDE IMAGES 09/03/2025 4:16 AM EST documented in this encounter Results * XR MSK OUTSIDE IMAGES (09/03/2025 4:16 AM EST) Anatomical [...] documented as of this encounter Care Teams E Commerce Web Developer Relationship Specialty Start Date End Date Srinivasan Smith MD [facility] [place] [address] PCP - General Internal Medicine 01/20/22 Pita Martinez MD [address] [place] [address] Referring Physician Interventional Cardiology 12/23/21 documented as of this encounter
--- OUTSIDE RECORDS SUMMARY | 2025-09-24 18:17 | XMS_ITS | Clinical Summary ---
Author Organization [facility] Address [address] [place] [address] Care Team Providers Care Sap Bw Architect Name Role Phone Provider, No Known Primary [...] 02/04/2018, 10/30/2013 Insurance MEDICARE ADVANTAGE Care Teams Sap Bw Architect Relationship Specialty Start Date End Date Provider, No Known [facility] [place] [address] PCP - General 09/03/18
--- OUTSIDE RECORDS SUMMARY | 2025-09-24 18:18 | XMS_ITS | Encounter Summary ---
Author Organization Healthcare Address [address] [place] [address] Care Team Providers Care Stereo Equipment Repairer Name Role Phone Pita Martinez MD Unavailable [phone] Srinivasan Smith MD Primary Care Provider [phone] Encounter Details Date Type Department Care Team (Latest Contact Info) Description 09/04/2025 Travel Social History Tobacco Use Types Packs/Day Years Used Date Smoking Tobacco: Former Cigarettes 0.3 30 1994 Passive Smoke Exposure: Past Smokeless Tobacco: [...] and Family Not on file 09/05/2025 Attends Hoahaoism Services Not on file 09/05 Active Member [...] any time in the past 12 m [facility], were you homeless or living in a intermediate (including now)? No 09/05/2025 [facility] Utilities Answer Date Recorded In the past [...] drink first t rei in the morning (EYE-CYANIDE POT HARDENER) to steady your nerves or to get [...] Author Precautions Fall risk 09/04/2025 8:00 AM Halley Guerra RN * Calculated C-SSRS Risk Score (Lifetime/Recent) Answer Date of Assessment Author No Risk Indicated 09/04/2025 9:30 AM Jazmin Hernandez RN * Question Answer Date of Assessment Author 1. Wish to be (Past 1 Month) No 09/04/2025 9:30 AM Shira Wolff RN 2. Non-Specific Active Suicidal Thoughts (Past 1 Month) No 09/04/2025 9:30 AM Shira Wolff RN 6. Suicidal Behavior (Lifetime) No 09/04/2025 9:30 AM Shira Wolff RN documented as of this encounter Mental Status * Question Answer Entry Date Author Precautions Fall risk 09/04/2025 8:00 AM Halley Guerra RN documented in this encounter Plan of Treatment Upcoming Encounters Date Type Department Care Team (Late st Contact Info) Description 09/25/2025 12:30 PM EST Office Visit [facility] Orthopaedic Surgery & Sports Medicine [address], 1st Floor [address] [place] [address] Sarah Hunter PA [address] [place] [address] 10/24/2025 8:00 AM EST Appointment [facility] Radiology [address], 1st [place] [address] 10/24/2025 8:40 AM EST Office Visit [facility] Orthopaedic Surgery & Sports Medicine [address], 1st Floor [address] [place] [address] Jose Antonio Hernández MD [address] [place] [address] 11/21/2025 3:00 PM EST Office Visit [facility] [place] Nephrology, Bone & Mineral Metabolism [address] [facility], [address] [place] [address] Aime Mcelroy MD [address] [place] [address] documented as of this encounter Visit Diagnoses Not on filedocumented in this encounter Additional Health Concerns Assessment Noted Time A fall risk assessment has been complete d for the patient 02/01/2024 1:15 PM EDT A Body Mass Index follow-up plan has been documented for the patient 09/07/2025 11:15 AM EST documented as of this encounter Care Teams Stereo Equipment Repairer Relationship Specialty Start Date End Date Srinivasan Smith MD [address] [place] [address] PCP - General Internal Medicine 01/20/22 Pita Martinez MD [address] [place] [address] Referring Physician Interventional Cardiology 12/23/21 documented as of this encounter
--- OUTSIDE RECORDS SUMMARY | 2025-09-24 18:19 | XMS_ITS | Encounter Summary ---
Author Organization [facility] Address [address] [place] [address] Care Team Providers Care General Education Professor Name Role Phone Pita Martinez MD Unavailable [phone] Srinivasan Smith MD Primary Care Provider [phone] Reason for Referral * Consultation (Routine) - Authorized Specialty Diagnoses / Procedures Referred By Contac t Referred To Contact Nephrology Diagnoses Microalbuminuria Elevated serum creatinine Tara Marquis APRN [address] [address] Phone: tel: fax: [facility] [address] [facility] [address], [place] [address] Phone: tel: fax: Referral ID Status Reason Start Date Expiration Date Visits Requested Visits Authorized [id number] Authorized Specialty Services Required 02/27/2027 1 1 Encounter Details Date Type Department Care Team (Latest Contact Info) Description 08/28/2025 Community [facility] Community Practice [address] [place] [address] Tara Marquis APRN [address] [place] [address] Microalbuminuria (Primary Dx); Elevated serum creatinine Social [...] Orthopaedic Surgery & Sports Medicine [address], 1st Floor [address] [place] [address] Sarah Hunter PA [address] [facility] [address] [place] [address] 10/24/2025 8:00 AM EST Appointment [facility] Radiology [address], 1st [place] [address] 10/24/2025 8:40 AM EST Office Visit [facility] Orthopaedic Surgery & Sports Medicine [address], 1st Floor [address] [place] [address] Jose Antonio Hernández MD [address] [facility] [address] [place] [address] 11/21/2025 3:00 PM EST Office Visit [facility] Nephrology, Bone & Mineral Metabolism [address] [facility], [address] [place] [address] Aime Mcelroy MD [address] [place] [address] Scheduled Referrals Name Type Priority Associated Diagnoses [...] documented as of this encounter Care Teams General Education Professor Relationship Specialty Start Date End Date Srinivasan Smith MD [address] [place] [address] PCP - General Internal Medicine 01/20/22 Pita Martinez MD [address] [place] [phone] Referring Physician Interventional Cardiology 12/23/21 documented as of this encounter
--- OUTSIDE RECORDS SUMMARY | 2025-09-24 18:19 | XMS_ITS | Encounter Summary ---
Author Organization Healthcare Address [address] [place] [address] Care Team Providers Care Mine Safety Director Name Role Phone Pita Martinez MD Unavailable [phone] Srinivasan Smith MD Primary Care Provider [phone] Encounter Details Date Type Department Care Team (Latest Contact Info) Description 09/20/2025 Travel Social History Tobacco Use Types Packs/Day [...] and Family Not on file 09/05/2025 Attends Sikhism Services Not on file 09/05 Active Member [...] any time in the past 12 m [facility], were you homeless or living in a correction (including now)? No 09/05/2025 [facility] Utilities Answer Date Recorded In the [...] drink first t rei in the morning (EYE-SECURITY POLICE OFFICER) to steady your nerves or to get [...] Description 09/25/2025 12:30 PM EST Office Visit [facility] Orthopaedic Surgery & Sports Medicine [address], [address] [place] [address] [address] [place] [address] Sarah Hunter PA [address] [facility] [address] [place] [address] 10/24/2025 8:00 AM EST Appointment [facility] Radiology [address], 1st [place] [address] 10/24/2025 8:40 AM EST Office Visit [facility] Orthopaedic Surgery & Sports Medicine [address], [address] [place] [address] [address] [place] [address] Jose Antonio Hernández MD [address] [place] [address] 11/21/2025 3:00 PM EST Office Visit [facility] Nephrology, Bone & Mineral Metabolism [address] [facility], [address] [place] [address] Aime Mcelroy MD [address] [place] [address] documented as of this encounter Visit Diagnoses Not on filedocumented in this encounter Additional Health Concerns Assessment Noted Time A fall risk assessment has been complete d for the patient 09/20/2025 11:07 AM EST A Body Mass Index follow-up plan has been documented for the patient 09/20/2025 11:58 AM EST documented as of this encounter Care Teams Mine Safety Director Relationship Specialty Start Date End Date Srinivasan Smith MD [address] [place] [address] PCP - General Internal Medicine 01/20/22 Pita Martinez MD [address] [place] [address] Referring Physician Interventional Cardiology 12/23/21 documented as of this encounter
--- OUTSIDE RECORDS SUMMARY | 2025-09-24 18:19 | XMS_ITS | Encounter Summary ---
Author Organization Healthcare Address [address] [place] [address] Care Team Providers Care Senior Analytical Chemist Name Role Phone Pita Martinez MD Unavailable [phone] Srinivasan Smith MD Primary Care Provider [phone] Encounter Details Date Type Department Care Team (Latest Contact Info) Description 09/22/2025 Travel Social History Tobacco Use Types Packs/Day [...] and Family Not on file 09/05/2025 Attends [employer] Not on file 09/05 Active Member [...] in the past 12 m [facility], were you homeless or living in a senior care (including now)? No 09/05/2025 [facility] Utilities Answer Date Recorded In [...] drink first t rei in the morning (EYE-SUPERVISOR COFFEE) to steady your nerves or to get [...] Description 09/25/2025 12:30 PM EST Office Visit [facility] [address], [address] [place] [address] [address] [place] [address] Sarah Hunter PA [address] [facility] [address] [place] [address] 10/24/2025 8:00 AM EST Appointment [facility] [address], [address] [place] [address] 10/24/2025 8:40 AM EST Office Visit [facility] [address], [address] [place] [address] [address] [place] [address] Jose Antonio Hernández MD [address] [place] [address] 11/21/2025 3:00 PM EST Office Visit [facility] [address] [facility], [address] [place] [address] Aime Mcelroy MD [address] [place] [address] documented as of this encounter Visit Diagnoses Not on filedocumented in this encounter Additional Health Concerns Assessment Noted Time A fall risk assessment has been complete d for the patient 09/20/2025 11:07 AM EST A Body Mass Index follow-up plan has been documented for the patient 09/20/2025 11:58 AM EST documented as of this encounter Care Teams Senior Analytical Chemist Relationship Specialty Start Date End Date Srinivasan Smith MD [address] [place] [address] PCP - General Internal Medicine 01/20/22 Pita Martinez MD [address] [place] [phone] Referring Physician Interventional Cardiology 12/23/21 documented as of this encounter
--- OUTSIDE RECORDS SUMMARY | 2025-09-24 18:19 | XMS_ITS | Patient Health Record ---
Author Organization [facility] Address [address] [place], [place] [address] Care Team Providers Care Staff Occupational Therapist Name Role Phone AzarTara Carrasquillo Primary Care Provider [phone] Srinivasan Smith Unavailable [phone] Denita Villagran Unavailable [phone] Migration, Provider Unavailable Unavailable Allergies Allergen (clinical drug ingredient) Drug/Non Drug Allergy documented on EMR Reaction Allergy Type Onset Date Status amoxicillin / clavulanate Augmentin Unknown Drug Allergy Active Results Component Value Reference Range Notes COMPREHENSIVE METABOLIC PANE L (59437) Reviewed date:08/28/2025 12:40:08 PM Interpretation: Performing Lab:CB, [facility] [address], [facility] HospitalUsncRA[address] Neal Caraballo Notes/Report: NON-FASTING; NON-FASTING; NON-FASTING GLUCOSE [...] Reviewed date:08/28/2025 12:40:41 PM Interpretation: Performing Lab:RANDY, [facility] [id number] [employer], PowervationPbzcAQ[address] Neal Caraballo Notes/Report: NON-FASTING; NON-FASTING; NON-FASTING WHITE [...] MPV 12.8 7.5-12.5 fL ABSOLUTE NEUTROPHILS 3720 1722-1653 cells/uL ABSOLUTE LYMPHOCYTES 840 023-7982 cells/uL ABSOLUTE MONOCYTES 370 200-950 cells/uL ABSOLUTE EOSINOPHILS 60 15-500 cells/uL ABSOLUTE BASOPHILS 40 0-200 cells/uL NEUTROPHILS 74.4 LYMPHOCYTES 16.2 MONOCYTES 7.4 EOSINOPHILS 1.2 BASOPHILS 0.8 HEMOGLOBIN A1c (496) Reviewed date:08/28/2025 12:40:31 PM Interpretation: Performing Lab:RANDY, [facility] [address], Vy CorporationGehiQV[address] Neal Caraballo Notes/Report: NON-FASTING; NON-FASTING; NON-FASTING HEMOGLOBIN [...] A1c for diagnosis of diabetes for children. M-Basic Metabolic Panel Reviewed date:11/21/2024 01:09:38 PM Interpretation: Performing Lab: Notes/Report: NA 140 136-145 mmol/L K 4.2 3.5-5.1 mmoL/L CL 107 98-107 mmol/L CO2 29 22.0-30.0 mmol/L GAP 8.2 5-15 mEq/L BUN 24 7-17 mg/dl CREATT 1.20 0.52-1.04 mg/dl CRCLE 25 50-200 mL/min GFRAA 52 >60 ML/MIN EGFR 43 >60 ml/min GLU 119 74-100 mg/dl CA 9.4 8.4-10.2 mg/dl CULTURE, URINE, ROUTINE (395 ) Reviewed date:01/01/2025 09:49:46 AM Interpretation: Performing Lab:CB, [facility] X[address] [facility], [facility] CenterDijiIZ[address] Neal Caraballo Notes/Report: NON-FASTING CULTURE, URINE, ROUTINE SEE NOTE CULTURE, URINE, ROUTINE Micro Number: [id number] Test Status: Final Specimen Source: Urine Specimen Quality: Adequate Result: Mixed genital lyndon isolated. These superficial bacteria are not indicative of a urinary tract infection. No further organism identification is warranted on this specimen. If clinically indicated, recollect clean-catch, mid-stream urine and transfer immediately to Urine Culture Transport Tube. Urinalysis Reviewed date:12/29/2024 02:05:08 PM Interpretation: Performing Lab: Notes/Report: Color/Clarity yellow Leuk small Nitrite neg Urobili 0.2 Protein trace pH 6.0 Blood moderate Sp. Gr. 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 organisms demonstrate decreased activity with penicillins, cephalosporins and aztreonam. Note 2: The organism has been confirmed as an ESBL CULTURE, URINE, ROUTINE Micro Number: [id number] Test Status: Final Specimen Source: Urine Specimen Quality: Adequate Result: Greater than 100,000 CFU/mL of Escherichia coli (ESBL) E.coli (ESBL) INT ZACH AMOX/CLAVULANATE I 16 AMPICILLIN R >=32 1 AMP/SULBACTAM R >=32 CEFAZOLIN R >=64 CEFEPIME R 16 CEFTAZIDIME R 16 CEFTRIAXONE R >=64 CEFUROXIME, AXETIL R >=64 CEFUROXIME, SODIUM R >=64 CIPROFLOXACIN I 0.5 GENTAMICIN R >=16 IMIPENEM S <=0.25 LEVOFLOXACIN S 0.5 MEROPENEM S <=0.25 NITROFURANTOIN S <=16 PIP/TAZOBACTAM S <=4 TOBRAMYCIN S 4 TRIMETHOPRIM/SULFA S <=20 ESBL RESULT: * 2 S = Susceptible I = Intermediate R = Resistant NS = Not susceptible SDD = Susceptible Dose Dependent * = Not Tested NR = Not Reported NN = See Therapy Comments THERAPY COMMENTS Note 1: Extended spectrum beta-lactamase (ESBL) producing Urinalysis Reviewed date:12/08/2024 04:12:55 PM Interpretation: Performing Lab: Notes/Report: Color/Clarity cloudy yellow Leuk large Nitrite neg Urobili 0.2 Protein trace pH 5.5 Blood mod Sp. Gr. 1.020 Ketone neg Bili neg Glucose 500mg Urinalysis Reviewed date:11/16/2024 02:14:52 PM Interpretation: Performing Lab: Notes/Report: Color/Clarity cloudy yellow Leuk large Nitrite neg Urobili 0.2 Protein trace pH 5.5 Blood moderate Sp. Gr. 1.015 Ketone neg Bili neg Glucose 250mg CBC (INCLUDES DIFF/PLT) (639 9) Reviewed date:03/19/2025 09:25:11 AM Interpretation: Performing Lab:RANDY [facility] [address] [facility], [facility] CenterNprxSE[address] Neal Caraballo Notes/Report: NON-FASTING; NON-FASTING WHITE BLOOD CELL COUNT 5.1 3.8-10.8 Thousand/ uL RED BLOOD CELL COUNT 3.78 3.80-5.10 Million/uL HEMOGLOBIN 11.5 11.7-15.5 g/dL HEMATOCRIT 36.2 35.0-45.0 % MCV 95.8 80.0-100.0 fL MCH 30.4 27.0-33.0 pg MCHC 31.8 32.0-36.0 g/dL For adults, a slight decrease in the calculated MCHC value (in the range of 30 to 32 g/dL) is most likely not clinically significant; however, it should be interpreted with caution in correlation with other red cell parameters and the patient's clinical condition. RDW 13.7 11.0-15.0 % PLATELET COUNT 115 140-400 Thousand/uL MPV 12.9 7.5-12.5 fL ABSOLUTE NEUTROPHILS 3274 0300-0172 cells/uL ABSOLUTE LYMPHOCYTES 107 904-5016 cells/uL ABSOLUTE MONOCYTES 464 200-950 cells/uL ABSOLUTE EOSINOPHILS 444 15-500 cells/uL ABSOLUTE BASOPHILS 61 0-200 cells/uL NEUTROPHILS 64.2 LYMPHOCYTES 16.8 MONOCYTES 9.1 EOSINOPHILS 8.7 BASOPHILS 1.2 [facility] ([address]663) Reviewed date:03/19/2025 09:25:11 AM Interpretation: Performing Lab:RANDY [facility] [address] [facility], [facility] CenterCjwhDN[address] Neal Caraballo Notes/Report: NON-FASTING; NON-FASTING GLUCOSE 152 65-99 mg/dL Fasting reference interval For someone without known diabetes, a glucose value >125 mg/dL indicates that they may have diabetes and this should be confirmed with a follow-up test. UREA NITROGEN (BUN) 27 7-25 mg/dL CREATININE 1.68 0.60-0.95 mg/dL EGFR 30 > OR = 60 mL/min/1.73m2 BUN/CREATININE RATIO 16 6-22 (calc) SODIUM 139 135-146 mmol/L POTASSIUM 4.8 3.5-5.3 mmol/L CHLORIDE 104 98-110 mmol/L CARBON DIOXIDE 27 20-32 mmol/L CALCIUM 9.4 8.6-10.4 mg/dL PROTEIN, TOTAL 6.4 6.1-8.1 g/dL ALBUMIN 3.9 3.6-5.1 g/dL GLOBULIN 2.5 1.9-3.7 g/dL (calc) ALBUMIN/GLOBULIN RATIO 1.6 1.0-2.5 (calc) BILIRUBIN, TOTAL 0.5 0.2-1.2 mg/dL ALKALINE PHOSPHATASE 72 37-153 U/L AST 21 10-35 U/L ALT 13 6-29 U/L TSH W/REFLEX TO FT4 (91048) Reviewed date:11/20/2024 11:10:26 AM Interpretation: Performing Lab:RANDY [employer]e[address] [employer], SmartZip AnalyticsHuaiWM[address] Neal Caraballo Notes/Report: NON-FASTING; NON-FASTING; NON-FASTING; NON-FASTING; NON-FAST FASTING:YES FASTING: YES TSH W/REFLEX TO FT4 0.46 0.40-4.50 mIU/L HEMOGLOBIN A1c (496) Reviewed date:11/20/2024 11:10:26 AM Interpretation: Performing Lab:RANDY [facility] [address], SmartZip AnalyticsGxzbRM[address] Neal Caraballo Notes/Report: NON-FASTING; NON-FASTING; NON-FASTING; NON-FASTING; NON-FAST FASTING:YES FASTING: YES HEMOGLOBIN A1c 6.1 <5.7 % of total Hgb For someone without known diabetes, a hemoglobin [...] A1c for diagnosis of diabetes for children. CBC (INCLUDES DIFF/PLT) (639 9) Reviewed date:11/20/2024 11:10:26 AM Interpretation: Performing Lab:RANDY [facility], PowervationVseiKV[address] Neal Caraballo Notes/Report: NON-FASTING; NON-FASTING; NON-FASTING; NON-FASTING; NON-FAST FASTING:YES FASTING: YES WHITE BLOOD CELL COUNT 3.9 3.8-10.8 Thousand/ uL RED BLOOD CELL COUNT 3.94 3.80-5.10 Million/uL HEMOGLOBIN 11.8 11.7-15.5 g/dL HEMATOCRIT 37.0 35.0-45.0 % MCV 93.9 80.0-100.0 fL MCH 29.9 27.0-33.0 pg MCHC 31.9 32.0-36.0 g/dL For adults, a slight decrease in the calculated MCHC value (in the range of 30 to 32 g/dL) is most likely not clinically significant; however, it should be interpreted with caution in correlation with other red cell parameters and the patient's clinical condition. RDW 13.0 11.0-15.0 % PLATELET COUNT 123 140-400 Thousand/uL MPV 13.4 7.5-12.5 fL ABSOLUTE NEUTROPHILS 2438 0052-6432 cells/uL ABSOLUTE LYMPHOCYTES 214 830-6050 cells/uL ABSOLUTE MONOCYTES 359 200-950 cells/uL ABSOLUTE EOSINOPHILS 90 15-500 cells/uL ABSOLUTE BASOPHILS 39 0-200 cells/uL NEUTROPHILS 62.5 LYMPHOCYTES 25.0 MONOCYTES 9.2 EOSINOPHILS 2.3 BASOPHILS 1.0 COMPREHENSIVE METABOLIC PANE Jazmyn (44150) Reviewed date:11/20/2024 11:10:26 AM Interpretation: Performing Lab:CB, [facility] Hospitale1355 [facility], [facility] HospitalKzazDA[address] Neal Caraballo Notes/Report: NON-FASTING; NON-FASTING; NON-FASTING; NON-FASTING; NON-FAST FASTING:YES FASTING: YES GLUCOSE 121 65-99 mg/dL Fasting reference interval For someone without known diabetes, a glucose value between 100 and 125 mg/dL is consistent with prediabetes and should be confirmed with a follow-up test. UREA NITROGEN (BUN) 26 7-25 mg/dL CREATININE 1.30 0.60-0.95 mg/dL EGFR 41 > OR = 60 mL/min/1.73m2 BUN/CREATININE RATIO 20 6-22 (calc) SODIUM 141 135-146 mmol/L POTASSIUM 4.3 3.5-5.3 mmol/L CHLORIDE 103 98-110 mmol/L CARBON DIOXIDE 32 20-32 mmol/L CALCIUM 9.5 8.6-10.4 mg/dL PROTEIN, TOTAL 7.0 6.1-8.1 g/dL ALBUMIN 4.1 3.6-5.1 g/dL GLOBULIN 2.9 1.9-3.7 g/dL (calc) ALBUMIN/GLOBULIN RATIO 1.4 1.0-2.5 (calc) BILIRUBIN, TOTAL 0.6 0.2-1.2 mg/dL ALKALINE PHOSPHATASE 67 37-153 U/L AST 17 10-35 U/L ALT 12 6-29 U/L LIPID PANEL, STANDARD (7600) Reviewed date:11/20/2024 11:10:26 AM Interpretation: Performing Lab:RANDY [facility], [place] EddyMfzqVN[address] Neal Caraballo Notes/Report: NON-FASTING; NON-FASTING; NON-FASTING; NON-FASTING; NON-FAST FASTING:YES FASTING: YES CHOLESTEROL, TOTAL 164 <200 mg/dL HDL CHOLESTEROL 83 > OR = 50 mg/dL TRIGLYCERIDES 51 <150 mg/dL LDL-CHOLESTEROL 68 Reference range: <100 Desirable range <100 mg/dL for primary prevention; <70 mg/dL for patients with CHD or diabetic patients with > or = 2 CHD risk factors. LDL-C is now calculated using the Adrian-Shen calculation, which is a validated novel method providing better accuracy than the Friedewald equation in the estimation of LDL-C. Adrian SS et al. MIRZA. 2013;310(19): 6568-1092 (http://education.No.1 Traveller.[employer]/faq/JBV842) CHOL/HDLC RATIO 2.0 <5.0 (calc) NON HDL CHOLESTEROL 81 <130 mg/dL (calc) For patients with diabetes plus 1 major ASCVD risk factor, treating to a non-HDL-C goal of <100 mg/dL (LDL-C of <70 mg/dL) is considered a therapeutic option. M-Gentamicin,Trough Reviewed date:11/24/2024 02:57:39 PM Interpretation: Performing Lab: Notes/Report: GENT < 0.6 0.0-2.0 ug/ml M-Gentamicin,Peak Reviewed date:11/25/2024 08:51:40 AM Interpretation: Performing Lab: Notes/Report: GENP 14.3 4.0-8.0 ug/ml CULTURE, URINE, ROUTINE (395 ) Reviewed date:11/20/2024 11:10:26 AM Interpretation: Performing Lab:CB, [facility] Mkwh1110 [facility], Justin EddyRezjSK[address] Neal Jack Caraballo Notes/Report: NON-FASTING; NON-FASTING; NON-FASTING; NON-FASTING; NON-FAST FASTING:YES FASTING: YES CULTURE, URINE, ROUTINE SEE NOTE CULTURE, URINE, ROUTINE Micro Number: [id number] Test Status: Final Specimen Source: Urine Specimen Quality: Adequate Result: 50,000-100,000 CFU/mL of Escherichia coli COMMENT: Additional non-predominating organism(s) isolated. These organisms, commonly found on external and internal genitalia, are considered colonizers. No further testing performed. E.coli INT ZACH AMIKACIN S 2 AMOX/CLAVULANATE S 8 AMP/SULBACTAM R >=32 CEFAZOLIN R >=64 1 CEFEPIME R >=32 CEFTAZIDIME R 16 CEFTRIAXONE R >=64 CIPROFLOXACIN R 1 GENTAMICIN S <=1 IMIPENEM S <=0.25 LEVOFLOXACIN I 1 MEROPENEM S <=0.25 NITROFURANTOIN S <=16 PIP/TAZOBACTAM S <=4 TRIMETHOPRIM/SULFA R >=320 S = Susceptible I = Intermediate R = Resistant NS = Not susceptible SDD = Susceptible Dose Dependent * = Not Tested NR = Not Reported NN = See Therapy Comments THERAPY COMMENTS Note 1: For uncomplicated UTI caused by E. coli, K. pneumoniae or P. mirabilis: Cefazolin is susceptible if ZACH <32 mcg/mL and predicts susceptible to the oral agents cefaclor, cefdinir, cefpodoxime, cefprozil, cefuroxime, cephalexin and loracarbef. Medications Medication SIG (Take, Route, Frequency, Duration) Notes Start Date End Date Status Sodium Zirconium Cyclosilicate 10 GM 1 packet dissolved in water Orally Once a day Active Escitalopram Oxalate 10 MG 1 tab(s) orally once a day; Duration: 90 days Active FiberCon 625 MG 1 tablet Orally twice a day Active Cyanocobalamin 1000 MCG 1 tablet Orally Once a day Active Memantine HCl 5 MG 1 tab(s) orally 2 times a day; Duration: 90 days Active Atorvastatin Calcium 80 MG 1 tab(s) orally once a day; Duration: 90 days Active Cholecalciferol 125 MCG (5000 UT) 1/2 tablet Orally Once a day Active Melatonin 5 MG 1 tablet in the evening Orally Once a day Active busPIRone HCl 5 MG Take 1 tablet by mouth twice daily as needed; Duration: 30 Active Folic Acid 1 MG 1 tablet Orally Once a day Active Fish Oil 1000 MG 1 cap(s) orally once a day Active Carvedilol 12.5 MG 1 tab(s) orally 2 times a day; Duration: 90 days Active Euthyrox 137 MCG (0.137 MG) 1 TAB(S) ORALLY ONCE A DAY; Duration: 30 DAYS *Please review and pick correct strength-formulati on from Lesson Prep options. If intended option is not shown, discontinue and re-order from Quick Search* 07/05/2024 Active Acetaminophen 325 MG 2 tabs Orally 3 times a day Active Jardiance 25 MG 1 tab(s) orally once a day (in the morning); Duration: 90 days Active Senna 8.6 MG 2 tablets at bedtime as needed Orally Once a day Active Aspirin 81 MG 1 tab(s) orally once a day Active MiraLax 17 GM/SCOOP as directed Orally Active Lisinopril 5 MG 1 tab Orally Once a day Active Isosorbide Mononitrate ER 30 MG 1 tab(s) orally once a day (in the morning); Duration: 90 days Active Immunizations Vaccine Route Administration Date Status Comme nts Adacel (Tdap) IM Intramuscular 10/29/2015 Administered Arexvy IM Intramuscular 11/15/2023 Administered Boostrix IM Intramuscular 05/15/2024 Administered Covid Pfizer Unknown 10/19/2020 Administered Covid Pfizer Unknown 11/08/2020 Administered Fluvirin--Influenz a vaccine 3+ year IM Intramuscular 07/21/2010 Administered Fluzone High Dose IM Intramuscular 06/29/2019 Administered Fluzone High Dose IM Intramuscular 06/25/2021 Administered Fluzone High Dose IM Intramuscular 07/02/2023 Administered Influenza (Fluzone)--Medicar e only IM Intramuscular 06/16/2013 Administered Influenza (Fluzone)--Medicar e only IM Intramuscular 08/09/2015 Administered Influenza (Fluzone)--Medicar e only IM Intramuscular 06/21/2016 Administered Influenza (Fluzone)--Medicar e only IM Intramuscular 07/13/2017 Administered Pneumovax 23 IM Intramuscular 07/05/2020 Administered Prevnar PCV-13 (Pneumococcal conjugate 13) IM Intramuscular 02/04/2018 Administered Zostavax (Shingles) SC Subcutaneous 06/16/2013 Administered lot # [id number] ex p date 01/26/2014 Problems Problem Type SNOMED Code ICD Code Onset Dates Problem Status W/U Status Risk Notes Problem Type 2 diabetes mellitus with other specified complication (E11.69) Active confirmed Problem Hyperlipidemia (84544539) Hyperlipidemia, unspecified (E78.5) Active confirmed Problem Irritable bowel syndrome with diarrhea (801957559) Irritable bowel syndrome with diarrhea (K58.0) Active confirmed Problem Dysuria (67633225) Dysuria (R30.0) Active confi rmed Problem Mixed anxiety and depressive disorder (385822856) Depression with anxiety (F41.8) Active confirmed Problem Vitamin D deficiency (61191798) Vitamin D deficiency (E55.9) Active confirmed Problem Essential hypertension (05776986) Essential hypertension (I10) Active confirmed Problem Mild cognitive impairment (400029872) Mild cognitive impairment (G31.84) Active confirmed Problem Seasonal allergy (172600974) Seasonal allergies (J30.2) Active confirmed Problem Thrombocytopenia (187725643) Thrombocytopenia (D69.6) Active confirmed Problem Memory loss (33553379) Memory loss (R41.3) Active confirmed Problem Atherosclerotic heart disease of match[place] coronary artery without angina pectoris (147766509978789) Coronary artery disease involving match-[place] band coronary artery of match-[place] heart without angina pectoris (I25.10) Active confirmed Problem Senile debility (12168550) Senile debility (R54) Active confirmed Problem Acquired hypothyroidism (785073508) Acquired hypothyroidism (E03.9) Active confirmed Problem Patent foramen ovale (disorder) (548643218) PFO (patent foramen ovale) (Q21.1) Active confirmed Problem Obesity (486713540) Non morbid o besity due to excess calories (E66.09) Active confirmed Problem Microalbuminuria (402957076) Microalbuminuria (R80.9) Active confirmed Problem Pancytopenia (731375904) Pancytopenia (D61.818) Active confirmed Problem Obstructive sleep apnea syndrome (72584443) NARAYAN (obstructive sleep apnea) (G47.33) Active confirmed Problem Pulmonary nodule (340509765) Pulmonary nodule (R91.1) Active confirmed Problem Generalized anxiety disorder (41982152) ELEONORA (generalized anxiety disorder) (F41.1) Active confirmed Problem serum creatinine raised (599669667) Elevated serum creatinine (R79.89) Active confirmed Problem Postoperative hypothyroidism (39125716) Postoperative hypothyroidism (E89.0) Active confirmed Problem Anemia (177861580) Postoperative anemia (D64.9) Active confirmed Problem History of heart valve repair with prosthesis (018409998723856) 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) Active confirmed Problem Ischemic heart disease (361110469) Ischemic heart disease (I25.9) Active confirmed Problem Obstructive sleep apnea syndrome (78213811) NARAYAN on CPAP (G47.33) Active confirmed Problem Transient ischemic attack (967408653) Unspecified transient cerebral ischemia (G45.9) Active confirmed Problem Congenital insufficiency of aortic valve (48039199) Aortic valve, bicuspid (Q23.1) Active confirmed Problem Senile osteoporosis (86513895) Senile osteoporosis (M81.0) Active confirmed Problem Chronic kidney disease stage 4 (003863735) Chronic kidney disease (CKD), stage 4 (N18.4) Active confirmed Vital Signs Heart Rate 60 /min 09/21/2025 Temperature 97.6 degrees Fahrenheit 09/21/2025 Blood pressure diastolic 78 mm Hg 09/21/2025 Height 5 ft 2 in in 09/21/2025 Blood pressure systolic 122 mm Hg 09/21/2025 Weight 111 lbs 09/21/2025 BMI 20.3 kg/m2 09/21/2025 Encounters Encounter Location Date Provider Diagnosis [facility] [address] [place] [address] 01/06/2025 Provider Migration [facility] P[facility] [address] [place] [address] 11/10/2024 Tara McNees Aortic valve, bicusp id Q23.1 ; Memory loss R41.3 ; Postoperative hypothyroidism E89.0 ; Type 2 diabetes mellitus with other specified complication E11.69 ; Ischemic heart disease I25.9 ; Essential hypertension I10 ; Hyperlipidemia, unspecified E78.5 ; Depression with anxiety F41.8 ; Thrombocytopenia D69.6 ; NARAYAN (obstructive sleep apnea) G47.33 ; Weight loss R63.4 ; Irritable bowel syndrome with diarrhea K58.0 ; Underweight R63.6 and Body mass index [BMI] 19.9 or less, adult Z68.1 [facility] [address] [address] 11/15/2024 Tara McNees Dysuria R30.0 [place] [id number] 12/08/2024 Tara McNees Recurrent UTI N39.0 ; Body mass index (BMI) less than 19 Z68.1 ; NARAYAN on CPAP G47.33 and Memory loss R41.[address] [address] 12/29/2024 Tara McNees Dysuria R30.0 ; Recurrent UTI N39.0 ; Body mass index (BMI) less than 19 Z68.1 ; NARAYAN on CPAP G47.33 ; Irritable bowel syndrome with diarrhea K58.0 and Memory loss R41.[address] [address] 03/16/2025 Tara McNees Memory loss R41.3 ; Aortic valve, bicuspid Q23.1 ; Postoperative hypothyroidism E89.0 ; Type 2 diabetes mellitus with other specified complication E11.69 ; Ischemic heart disease I25.9 ; Essential hypertension I10 ; Hyperlipidemia, unspecified E78.5 ; Depression with anxiety F41.8 ; Thrombocytopenia D69.6 ; NARAYAN (obstructive sleep apnea) G47.33 ; Irritable bowel syndrome with diarrhea K58.0 ; Underweight R63.6 ; Body mass index [BMI] 19.9 or less, adult Z68.1 and Recurrent UTI N39.[address] [address] 08/24/2025 Tara McNees Ischemic heart disea se I25.9 ; Essential [...] index [BMI] 19.9 or less, adult Z68.[address] [address] 09/11/2025 Denita Villagran Status post fracture of [...] disorder) F41.1 and Mild cognitive impairment G31.84 [facility] [address] [address] 09/21/2025 Tara Atul Senile debility R54 ; Status post fracture of left hip Z87.81 ; Senile osteoporosis M81.0 ; Chronic kidney disease (CKD), stage 4 N18.4 ; Hyperkalemia E87.5 ; Postoperative anemia D64.9 ; Thrombocytopenia D69.6 ; Type 2 diabetes mellitus with other specified complication E11.69 ; Postoperative hypothyroidism E89.0 ; ELEONORA (generalized anxiety disorder) F41.1 and Mild cognitive impairment G31.84 [facility] [address] [address] 11/16/2024 Srinivasan Besson [facility] [place] [address] [address] 12/04/2024 Tara McNees [facility] [place] [address] [address] 12/15/2024 Srinivasan Besson [facility] [place] [address] [address] 07/23/2025 Tara McNees [facility] [place] [address] [address] 08/29/2025 Tara McNees [facility] [place] [address] [place], [place] [address] 09/11/2025 [facility] [place] [address] [place], [place] [address] 09/17/2025 [facility] [place] [address] [place], [place] [address] 09/21/2025 Tara Pollard Assessments Encounter Date Diagnosis (ICD Code) Assessment Notes Treatment Notes Treatment Clinical Notes Section Notes 11/10/2024 Memory loss (ICD-10 - R41.3) Discussed importance of wearing CPAP consistently, exercise and activities to prevent further decline of cognition. Continue Namenda. Keep FU with Dr Matta 11/10/2024 Aortic valve, bicuspid (ICD-10 - Q23.1) Follows with [facility]. No acute symptoms No med changes made today 11/15/2024 Dysuria (ICD-10 - R30.0) 12/08/2024 Recurrent UTI (ICD-10 - N39.0) UA suspicious for UTI again in office today. Will await culture results given the resistance on previous culture. If culture returns no bacterial growth, will send to urology for further recommendations. Increase oral fluid intake. Return precautions discussed 12/08/2024 Body mass index (BMI) less than 19 (ICD-10 - Z68.1) Persistent weight loss despite mirtazapine. Increase dose as listed above. Discussed importance of protein intake, needs protein with all meals. Recommend protein supplement for increasing calories once daily. Will reevaluate weight in 3-4 weeks 12/29/2024 Dysuria (ICD-10 - R30.0) 12/29/2024 Recurrent UTI (ICD-10 - N39.0) Appears to have UTI again. Will await cx prior to initiating antibiotics. Increase oral fluid intake. Cranberry daily. Refer to urology for further recommendations. 03/16/2025 Memory loss (ICD-10 - R41.3) Stable. Cognition is more clear today than last 2-3 visits. Continue Namenda. Keep FU with Dr Matta 03/16/2025 Aortic valve, bicuspid (ICD-10 - Q23.1) Follows with [facility]. No acute CV symptoms 08/24/2025 Essential hypertension (ICD-10 - I10) Blood pressure at goal today. 08/24/2025 Ischemic heart disease (ICD-10 - I25.9) No acute angina 09/11/2025 Senile debility (ICD-10 - R54) age complicates care 09/11/2025 Status post fracture of left hip (ICD-10 - Z87.81) repair at [facility]...has outpatient FU arranged on 09/20. unable to provide support at home. Continue inpatient PT/OT as tolerated in order to maximize return of independent mobility and prevention of recurrent falls 09/21/2025 Senile debility (ICD-10 - R54) Complicates aspects of care 09/21/2025 Status post fracture of left hip (ICD-10 - Z87.81) [facility], LTC notes reviewed Keep LE elevated while up [...] outpatient appt [facility] 09/11/2025 Senile osteoporosis (ICD-10 - M81.0) continue vitamin D, is to have outpatient appt with [facility] 03/16/2025 Postoperative hypothyroidism (ICD-10 - E89.0) TSH stable. Continue synthroid 08/24/2025 Type 2 diabetes mellitus with other specified complication (ICD-10 - E11.69) A1c at prediabetes level on previous labs. On Jardiance, tolerating well. Continue diabetic diet, supportive footwear, yearly eye exams. 12/08/2024 NARAYAN on CPAP (ICD-10 - G47.33) .Stressed the importance of consistently wearing CPAP to optimize cognitive function. Discussed importance of physical activity. Once again recommended Silver sneakers program for exercise 3-4 days/week. Aricept stopped due to anorexia by Dr. Matta, on namenda 12/29/2024 Body mass index (BMI) less than 19 (ICD-10 - Z68.1) Discussed adding protein to all meal, tracking calories, shake supplements once a day Continue cryproheptadine as started by neurology. 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 Continue synthroid 11/10/2024 Type 2 diabetes mellitus with other specified complication (ICD-10 - E11.69) Due for A1c. On Jardiance, tolerating well. Continue diabetic diet, supportive footwear, yearly eye exams. 12/08/2024 Memory loss (ICD-10 - R41.3) See above. 03/16/2025 Type 2 diabetes mellitus with other specified complication (ICD-10 - E11.69) A1c at prediabetes level on previous labs. On Jardiance, tolerating well. Continue diabetic diet, supportive footwear, yearly eye exams. 12/29/2024 NARAYAN on CPAP (ICD-10 - G47.33) Stressed importance of using CPAP everynight 08/24/2025 Aortic valve, bicuspid (ICD-10 - Q23.1) Follows with [facility]. No acute CV symptoms 09/11/2025 Chronic kidney disease (CKD), stage 4 (ICD-10 - N18.4) Creatinine on admission to [facility] 3.17, improved now to 1.7 [facility] added low dose lisinopril 09/21/2025 Chronic kidney disease (CKD), stage 4 (ICD-10 - N18.4) Creatinine 1.7 during LTC stay Continue lisinopril as added by nephrology during inpatient stay 09/21/2025 Hyperkalemia (ICD-10 - E87.5) 4.1 during LTC stay Plan to repeat on Wednesday 4.1 since admission here, Narcisa complete, monitor 08/24/2025 Memory loss (ICD-10 - R41.3) Seems to have a little more difficulty recalling recent events however major stressor with move, husbands health condition. Continue Namenda. Keep FU with Dr Matta. 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 Keep FU with Dr. Licona. Did well on Viberzi in the past but was too expensive, advised to check with Dr. Licona to see if their is a patient assistance program available 11/10/2024 Ischemic heart disease (ICD-10 - I25.9) No acute angina 12/29/2024 Memory loss (ICD-10 - R41.3) See above 11/10/2024 Essential hypertension (ICD-10 - I10) Blood pressure at goal today. 03/16/2025 Essential hypertension (ICD-10 - I10) Blood pressure at goal today. 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 Continue synthroid 09/11/2025 ASHLEY (acute kidney injury) (ICD-10 - N17.9) improved 09/21/2025 Postoperative anemia (ICD-10 - D64.9) Continue renal vitamin daily. Stable during LTC stay CBC again on Wednesday. 09/21/2025 Thrombocytopenia (ICD-10 - D69.6) Stable around 120 on last CBC 09/11/2025 Postoperative anemia (ICD-10 - D64.9) stable, Renal Vitamin added, repeat next week 08/24/2025 Hyperlipidemia, unspecified (ICD-10 - E78.5) Tolerating statin well, no changes. LDL with excellent control. 11/10/2024 Hyperlipidemia, unspecified (ICD-10 - E78.5) Tolerating statin well, no changes. LDL with excellent control. Family would like to stop due to her memory. No proven benefit at her age, I think this is reasonable 03/16/2025 Hyperlipidemia, unspecified (ICD-10 - E78.5) Tolerating statin well, no changes. LDL with excellent control. 11/10/2024 Depression with anxiety (ICD-10 - F41.8) Well controlled on current regimen. No changes made 03/16/2025 Depression with anxiety (ICD-10 - F41.8) Well controlled on current regimen. No changes made 09/11/2025 Thrombocytopenia (ICD-10 - D69.6) stable, recommend DC Heparin if this trends down or upon discharge home. Folate supplement added at 08/24/2025 Depression with anxiety (ICD-10 - F41.8) Well controlled on current regimen. 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 Has declined bone marrow biopsy for definitive diagnosis at this time due to stability of platelets. Will check CBC to confirm today 03/16/2025 Thrombocytopenia (ICD-10 - D69.6) Following with hematology. Has declined bone marrow biopsy for definitive diagnosis at this time due to stability of platelets. Will check CBC to confirm today 11/10/2024 Thrombocytopenia (ICD-10 - D69.6) Following with hematology. Has declined bone marrow biopsy for definitive diagnosis at this time due to stability of platelets. Will check CBC to confirm today 11/10/2024 NARAYAN (obstructive sleep apnea) (ICD-10 - G47.33) Stressed importance of wearing CPAP consistently 03/16/2025 NARAYAN (obstructive sleep apnea) (ICD-10 - G47.33) Keep FU with Dr. Matta for further recommenations 08/24/2025 NARAYAN (obstructive sleep apnea) (ICD-10 - G47.33) Keep FU with Dr. Matta for further recommenations 09/11/2025 Type 2 diabetes mellitus with other specified complication (ICD-10 - E11.69) stable on oral regimen 09/21/2025 ELEONORA (generalized anxiety disorder) (ICD-10 - [...] back to her familiar home environment. 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 Continue lomotil. Keep Fu with Dr. Licona 03/16/2025 Irritable bowel syndrome with diarrhea (ICD-10 - K58.0) No changes made today. Continue lomotil. Keep Fu with Dr. Licona 11/10/2024 Weight loss (ICD-10 - R63.4) Restart remeron. Daughter to help with pill box and monitoring medication use 11/10/2024 Irritable bowel syndrome with diarrhea (ICD-10 - K58.0) No changes made today. Continue lomotil. Keep Fu with Dr. Licona 03/16/2025 Underweight (ICD-10 - R63.6) 08/24/2025 Underweight (ICD-10 - R63.6) 09/11/2025 ELEONORA (generalized anxiety disorder) (ICD-10 - F41.1) stable escitalopram and low dose buspirone 09/11/2025 Mild cognitive impairment (ICD-10 - G31.84) continue memantine, also complicates care 08/24/2025 Body mass index [BMI] 19.9 or less, adult (ICD-10 - Z68.1) Stable. Discussed importance of eating protein with every meal. Recommend boost or ensure daily and remeron as above. 03/16/2025 Body mass index [BMI] 19.9 or less, adult (ICD-10 - Z68.1) Pleased with 5lb weight gain. Discussed importance of eating protein with every meal. Recommend boost or ensure daily and remeron as above. 11/10/2024 Underweight (ICD-10 - R63.6) 11/10/2024 Body mass index [BMI] 19.9 or less, adult (ICD-10 - Z68.1) Discussed importance of adding protein to every meal. Recommend boost or ensure daily and remeron as above. RTC in 2 weeks for weight check 03/16/2025 Recurrent UTI (ICD-10 - N39.0) Advised to rechedule urology appointment. Denies urinary symptoms today Plan Of Treatment Pending Test Test Name Order Date Sleep Study 06/14/2017 Venous Doppler : Lower Extremity 014 Mammogram : Bilateral 07/07/2012 H-CBC with AUTO DIFF 07/05/2012 H-CBC with AUTO DIFF 09/18/2014 H-CBC with AUTO DIFF 02/28/2014 H-CBC with AUTO DIFF 04/27/2017 H-IRON & TIBC 06/08/2017 H-VITAMIN B12 06/08/2017 H-VITAMIN B12 04/27/2017 H-VITAMIN B12 09/18/2014 H-CMP 09/18/2014 H-CMP 07/05/2012 H-CMP 02/28/2014 H-CMP 07/16/2008 H-CMP 04/27/2017 H-BUN 06/14/2017 H-CREATININE SERUM 06/14/2017 H-LIPID PANEL 09/18/2014 H-LIPID PANEL 02/28/2014 H-LIPID PANEL 07/05/2012 H-LIPID PANEL 07/16/2008 H-LIPID PANEL 04/27/2017 H-HGBA1C 04/27/2017 H-HGBA1C 07/16/2008 H-HGBA1C 07/05/2012 H-HGBA1C 02/28/2014 H-HGBA1C 09/18/2014 H-TSH 09/18/2014 H-TSH 07/05/2012 H-TSH 02/28/2014 H-TSH 04/27/2017 H-VIT D, 25-HYDROXY 02/28/2014 H-VIT D, 25-HYDROXY 09/18/2014 H-MICROALBUMIN URINE 10/16/2016 C-CMP 09/16/2018 C-LIPID PANEL 09/16/2018 C-TSH 09/16/2018 C-HGBA1C 09/16/2018 VITAMIN B12 05/15/2016 Comp. Metabolic Panel (14) 05/15/2016 TSH 05/15/2016 c-peripheral blood smear 06/29/2019 Lipid Panel 05/15/2016 Hemoglobin A1c 05/15/2016 M-Complete Blood Count Auto Diff 023 M-Hemoglobin A1C 10/16/2022 M-Thyroid Stimulating Hormone 10/16/2022 M-Vitamin D 25 Hydroxy 03/14/2021 M-Urine Culture 10/30/2022 TSH (899) 08/24/2025 CULTURE, URINE, ROUTINE (395) 11/15/2024 Future Test Test Name Order Date Mammogram : Bilateral 01/03/2016 Next Appt Details Provider Name:Tara Garcia, 11/13/2025 11:30:00 AM, [address], [address], [place], [address], Insurance Providers Payer Name Payer Address Payer Phone Subscriber Number Group Number Insured Name Patient Relationship to Insured Coverage Start Date Coverage End Date [employer] [address] [place] [address] [id number] Lakesha Roger Self - patient is the insured Medications Administered Medication Instructions Date of Administration Dosage Notes Ceftriaxone 500 03/14/2021 500 mg Ceftriaxone 500 10/16/2022 500 mg Cyanocobalamin/B-12 Pt's Own Medication 05/14/2017 1 mL Cyanocobalamin/B-12 Pt's Own Medication 06/08/2017 1 mL Dexamethasone 4mg Injection 07/21/2023 4 mg Kenalog 40mg 02/04/2018 40 mg Medical (General) History Medical History History ICD Code asthma allergies NIDDM hyperlipidemia hypertension bicuspid aortic valve CAD Subarachnoid hemorrhage Hypothyriodism PFO Roberts's esophagus C-scope 10/22 with no polyps - extensive diverticulosis Sucrase- Isomaltase Def IBS CKD Surgical History Surgery Date(Month/Year) Total Abdominal Hysterectomy 1994 Thyroidectomy 1961 Left Tibial Plateau Fx ORIF 2013 Colonoscopy 2019 Bilateral Cataracts 2014 Heart stents x 2 - 04/2016 hernia repair 03/2018 TAVR 01/2022 [facility] - left intertrochanteric fracture c ephalomedullary nailing 09/2025 Hospitalization History Reason Date(Month/Year) [facility] - left hip fracture 09/2025 Subarachnoid hemorrhage 03/11 [facility] ([facility] 10/17
--- OUTSIDE RECORDS SUMMARY | 2025-09-24 18:20 | XMS_ITS | Clinical Summary ---
Author Organization Healthcare Address [address] [place] [address] Care Team Providers Care Press Catcher Name Role Phone Pita Martinez MD Unavailable [phone] Srinivasan Smith MD Primary Care Provider [phone] Allergies Active Allergy Reactions Criticality Noted Date Comments Amoxicillin-Pot Clavulanate Unknown - Pa tient states they do not know rxn details Low 02/01/2024 Medications omega-3 (Fish Oil) 1000 MG capsule once daily. 02/05/20 16 Active cyanocobalamin (Vitamin B-12) 1000 MCG tablet Take 1 tablet by mouth daily. 12/23/19 18 Active Calcium Polycarbophil (FIBERCON PO) Take by mouth 2 times a day. Takes 3 am and 3 pm Active memantine (Namenda) 5 MG tablet Take 1 tablet by mouth 2 times a day. 01/06/20 23 Active busPIRone (Buspar) 5 MG tablet Take 1 tablet by mouth 2 times a day as needed. 10/16/19 24 Active Jardiance 25 MG Take 1 tablet by mouth daily. Active escitalopram (Lexapro) 10 MG tablet Take 1 tablet by mouth daily. 12/13/19 24 Active carvedilol (Coreg) 12.5 MG tablet Take 1 tablet by mouth 2 times a day. Active isosorbide mononitrate ER (Imdur) 30 MG 24 hr tablet Take 1 tablet by mouth daily. Do not crush or chew. Active levothyroxine (Synthroid, Levoxyl) 137 MCG tablet Take 1 tablet by mouth daily before breakfast. Active atorvastatin (Lipitor) 80 MG tablet Take 1 tablet by mouth nightly. Active lisinopril 5 MG tablet Take 1 tablet by mouth nightly. Active Melatonin 5 MG tablet tablet Take 1 tablet by mouth nightly. Active aspirin 81 MG EC tablet Take 1 tablet by mouth nightly. Active cholecalciferol (D3-5) 5,000 Units tablet Take 0.5 tablets by mouth daily. 09/08/20 Active senna (Senokot) 8.6 MG tablet Take 2 tablets by mouth daily as needed for constipation (to target 1-2 BM daily). 09/07/20 25 Active polyethylene glycol (Miralax) 17 g packet Take 17 g by mouth daily as needed (to target 1-2 BM daily). 09/07/20 Active amLODIPine (Norvasc) 10 MG tablet Take 1 tablet (10 mg) by mouth 1 (one) time each day. 08/27/20 21 025 Discontinu ed(Entered in Error) atorvastatin (Lipitor) 80 MG tablet Take 1 tablet (80 mg) by mouth every night. 07/28/20 17 025 Discontinu ed(Entered in Error) carvedilol (Coreg) 12.5 MG tablet Take 1 tablet (12.5 mg) by mouth 2 (two) times a day. 09/01/20 21 025 Discontinu ed(Entered in Error) cholecalciferol (Vitamin D-3) 50 MCG (2000 UT) capsule Take by mouth 1 (one) time each day. 02/05/20 16 025 Discontinu ed(Entered in Error) zinc gluconate 50 MG tablet Take 1 tablet by mouth daily. 025 Discontinu ed(Stop Taking at Discharge) Multiple Vitamin (multivitamin) tablet Take 1 tablet by mouth daily. Discontinu ed(Stop Taking at Discharge) isosorbide mononitrate ER (Imdur) 30 MG 24 hr tablet Take 1 tablet (30 mg total) by mouth 1 (one) time each day. Do not crush or chew. 30 tablet 11 11/19/19 22 025 Discontinu ed(Entered in Error) levothyroxine (Synthroid, Levoxyl) 112 MCG tablet Take 1 tablet (112 mcg) by mouth 1 (one) time each day. 11/24/19 025 Discontinu ed(Entered in Error) Viberzi 100 MG tablet Take 100 mg by mouth 2 (two) times a day. 01/04/20 025 Discontinu ed(Entered in Error) folic acid (Folvite) 1 MG tablet Take 1 tablet by mouth daily for 6 doses. 09/08/20 025 acetaminophen (Tylenol) 325 MG tablet Take 2 tablets by mouth every 8 hours for 15 days. 09/07/20 025 sodium zirconium cyclosilicate (Lokelma) 10 g packet Take 10 g by mouth daily for 5 days. 09/08/20 Heparin Sodium, Porcine, (heparin, porcine,) 5000 UNIT/ML injection Inject 1 mL under the skin every 8 hours for 13 days. 09/07/20 025 Active Problems Problem Noted Date Diagnosed Date Osteoporosis with current pathological fracture 09/05/2025 Displaced intertrochanteric fracture of left femur, initial encounter for closed fracture 09/03/2025 Acute delirium 04/26/2025 Altered mental status 04/26/2025 Chest pain 04/26/2025 Fructose intolerance 04/26/2025 Hallucinations 04/26/2025 Hypothyroidism 04/26/2025 Mood disorder 04/26/2025 Pyelonephritis 04/26/2025 Thrombocytopenia 04/26/2025 Hypertension 04/26/2025 MCI (mild cognitive impairment) 04/26/2025 NARAYAN (obstructive sleep apnea) 04/26/2025 S/P AVR 04/26/2025 S/P TAVR (transcatheter aortic valve replacement ) 02/25/2022 Atherosclerotic heart diseas e of [place] coronary artery without angina pectoris 01/20/2022 Atrial [...] Encounters Date Type Department Care Team Description 09/22/2025 Travel 09/20/2025 2:55 PM EST - 09/20/2025 11:59 PM EST Hospital Encounter [facility] [address] [facility] [address] [place] [address] Left leg swelling Discharge Disposition: Home or Self Care 09/20/2025 10:50 AM EST Office Visit [facility] Orthopaedic Surgery & Sports Medicine [address], [address] [place] [address] Sarah Hunter PA Displaced intertrochanteric fracture of left femur, initial encounter for closed fracture (Primary Dx); Left leg swelling 09/20/2025 Travel 09/04/2025 10:21 AM EST Anesthesia Event [facility] [address] [place] [address] Quang Rodriguez MD Rock, Holly R, PA 09/04/2025 10:20 AM EST - 09/04/2025 1:30 PM EST Surgery [facility] [address] [place] [address] Jose Antonio Hernández MD INSERTION, INTRAMEDULLARY OSWALD, FEMUR 09/04/2025 Travel 09/03/2025 12:12 PM EST Anesthesia Event [facility] [address] [place] [address] M[place] Heath E 09/03/2025 6:27 AM EST - 09/07/2025 11:37 AM EST Hospital Encounter [facility] [address] [place] [address] Dominick Curtis MD Fourie, Eloise, DO Chadha, Romil, MD Displaced intertrochanteric fracture of left femur, initial encounter for closed fracture (Primary Dx); Closed displaced intertrochanteric fracture of left femur, initial encounter; ASHLEY (acute kidney injury); Fall, initial encounter; Hyperkalemia; Anemia, unspecified type; Age-related osteoporosis with current pathological fracture, initial encounter Discharge Disposition: [facility] 09/03/2025 Travel 09/03/2025 Orders Only External Location [address] [id number] David Francisco MD 09/03/2025 Orders Only External Location [address] [place] [address] David Francisco MD 09/03/2025 Orders Only External Location [address] [place] [address] David Francisco MD 09/03/2025 Orders Only External Location [address] [place] [id number] Provider, External 09/03/2025 Orders Only External Location [address] [place] [address] Provider, External 08/28/2025 Community Orders Community Practice [address] [place] [address] Tara Marquis, [employer] Microalbuminuria (Primary Dx); Elevated serum creatinine from Last 3 Months Immunizations Immunization Administration Dates Next Due Hep A, Adult 10/06/2018 Influenza, high-dose, quadrivalent 07/02,07/09/2022,06/25/2021,07/05,06/29/2019,07/16/2018,07/16/2018 Influenza, injectable, quadrivalent 07/13/2017 Influenza, seasonal, injectable 07/21/2010 [facility] COVID-19 Vac cine (Purple Cap) 12+ 07/09/2021 [...] and Family Not on file 09/05/2025 Attends [facility] Not on file 09/05 Active Member [...] any time in the past 12 [facility], were you homeless or living in a group home (including now)? No 09/05/2025 [facility] Utilities Answer Date Recorded In the past [...] drink first t rei in the morning (EYE-BED BUG EXTERMINATOR) to steady your nerves or to get [...] F) 09/20/2025 11:06 AM EST Respiratory Rate 16 09/07/2025 7:41 AM EST Oxygen Saturation 97% 09/20/2025 11:06 AM EST Inhaled Oxygen Concentration - - Weight 50.5 kg (111 lb 5.3 oz) 09/03/2025 8:21 A M EST Height 157.5 cm (5' 2 ) 09/03/2025 9:49 AM EST Body Mass Index 20.36 09/03/2025 8:21 AM EST Plan of Treatment Upcoming Encounters Date Type Department Care Team (Late st Contact Info) Description 09/25/2025 12:30 PM EST Office Visit [facility] Orthopaedic Surgery & Sports Medicine [address] [place] [address] Sarah Hunter PA [address] [place] [address] 10/24/2025 8:00 AM EST Appointment [facility] Radiology [address], [address] [place] [address] 10/24/2025 8:40 AM EST Office Visit [facility] Orthopaedic Surgery & Sports Medicine [address], [address] [place] [address] Jose Antonio Hernández MD [address] [place] [address] 11/21/2025 3:00 PM EST Office Visit [facility] Nephrology, Bone & Mineral Metabolism [address] [facility] [facility], [address] [place] [address] Aime Mcelroy MD [address] [place] [address] Health Maintenance Due Date Last Done Comments [facility]-Bone Density Scan 1940 [facility]-Medicare Annual Wellness (AWV) 1940 [facility]-/Child/Adol SDOH Screenings 1940 Diabetes: Dental Exam 1952 [facility]-Diabetes: Hemoglobin A1C 08/17/2018 02/17/2018 [facility]-Depression Screening 01/31/2025 02/01/2024 [id number]-27 Vaccine ( season) 2025 06/21/2024, 08/06/2022, 04/16/2022, Additional history exists [facility]- SDOH Screenings 03/06/2026 [facility]-Adult SDOH Screenings 03/06/2026 09/05/2025 [facility]-DTaP,Tdap,and Td Vaccines (3 - Td or Tdap) 05/15/2034 05/15/2024, 10/29/2015, 12/07/1996 [facility]-Hepatitis A Vaccines Aged Out 10/06/2018 No longer eligible based on patient's age to complete this topic [facility]-Zoster Vaccines Completed 06/18/2020, 10/10/2019, 06/16/2013 [facility]-Pneumococcal Vaccine: 50+ Years Completed 07/05/2020, 02/04/2018, 10/30/2013 [facility]-RSV Vaccine: 60+ Years or Completed 11/15/2023 [facility]-Influenza Vaccine Completed 08/01/2025 , 07/02/2023, 07/09/2022, Additional history exists HPV Vaccines (No Doses Required) Completed [facility]-HIB Vaccines Aged Out No longer e ligible based on patient's age to complete this topic [facility]-IPV Vaccines Aged Out No longer e ligible based on patient's age to complete this topic [facility]-Rotavirus Vaccines Aged Out No lo nger eligible based on patient's age to complete this topic Medical Devices Implanted Type Area Lumber Piler Operator Device Identifier Shelf Expiration Date Model / Serial / Lot Nail Intertan Trigen [id number] 130deg - [id number] Implanted:Qty: 1 on 09/04/2025 by Jose Antonio Hernández MD at [facility] Nail Left: Femur [id number] 11/12/2033 [id number] / / Lag/Comp Screw Kit 90/85 - [id number] Implanted:Qty: 1 on 09/04/2025 by Jose Antonio Hernández MD at [facility] Screw Left: Femur [id number] 04/01/2035 [id number] / / Screw Trigen 5.0mm For Metanail 27.5mm - [id number] Implanted:Qty: 1 on 09/04/2025 by Jose Antonio Hernández MD at [facility] Screw Left: Femur [id number] 05/16/2034 [id number] / / Valve Kit Jay 3 Ultra Tavr 23mm - [id number] - [id number] Implanted:Qty: 1 on 01/19/2022 by Rochelle Barron MD at [facility] N/A: Heart [id number] 02/20/2023 [id number] / [id number] / [id number] Procedures Procedure Name Priority Date/Time Associated Diagnosis Comments VAS US VENOUS DUPLEX LOWER EXTREMITY UNILATERAL Routine 09/20/2025 3:24 PM EST Left leg swelling PHOSPHORUS, PLASMA Routine 09/07/2025 4:21 AM EST MAGNESIUM, PLASMA Routine 09/07/2025 4:21 AM EST COMPREHENSIVE METABOLIC PANEL, PLASMA Routine 09/07/2025 4:21 AM EST CBC W/O DIFFERENTIAL Routine 09/07/2025 4:21 AM EST POTASSIUM, PLASMA Add-On 09/06/2025 3:17 PM EST CBC WITH AUTO DIFFERENTIAL Routine 09/06/2025 3:17 PM EST SODIUM, PLASMA Routine 09/06/2025 3:17 PM EST TRANSFUSE RED BLOOD [...] OXYGEN THERAPY Routine 09/05/2025 8:00 AM EST BASIC METABOLIC PANEL, PLASMA Routine 09/05/2025 12:56 AM EST CBC W/O DIFFERENTIAL Routine 09/05/2025 12:56 AM EST OXYGEN THERAPY Routine 09/04/2025 8:00 PM EST XR FEMUR LEFT 2+ VIEWS STAT 09/04/2025 1:11 PM EST FL LESS THAN 1 HOUR (NON-REPORTABLE) Routine 09/04/2025 12:02 PM EST PB ANESTHESIA NON-TIMED PROCEDURE PLACEHOLDER Routine 09/04/2025 11:05 AM EST TRANSFUSE RED BLOOD CELLS Routine 09/04/2025 11:03 AM EST POCT ARTERIAL BLOOD GAS GEM UNSOLICITED RESULTS Routine 09/04/2025 10:56 AM EST PB ANESTHESIA PLACEHOLDER Routine 09/04/2025 10:32 AM EST NE AN ELECTIVE ENDOTRACHEAL AIRWAY Routine 09/04/2025 10:32 AM EST ANESTHESIA PERIPHERAL IV PLACEMENT Routine 09/04/2025 10:30 AM EST INSERTION, INTRAMEDULLARY OSWALD, FEMUR 09/04/2025 [...] / INR Routine 09/04/2025 12:09 AM EST COMPREHENSIVE METABOLIC PANEL, PLASMA Routine 09/04/2025 12:09 AM EST CBC W/O DIFFERENTIAL Routine 09/04/2025 12:09 AM EST OXYGEN THERAPY [...] UNSOLICITED RESULTS Routine 09/03/2025 3:22 PM EST PROTEIN ELECTROPHORESIS, PATHOLOGIST INTERPRETATION Routine 09/03/2025 3:13 PM EST PERIPHERAL BLOOD SMEAR, PATHOLOGIST INTERPRETATION Routine 09/03/2025 3:13 PM EST PERIPHERAL BLOOD SMEAR, PSMEAR Routine 09/03/2025 3:13 PM EST FERRITIN, SERUM Routine 09/03/2025 3:13 PM EST IRON & TOTAL IRON BINDING CAPACITY, PLASMA (INCLUDES TRANSFERRIN) Routine 09/03/2025 3:13 PM EST TOTAL PROTEIN, SERUM Routine 09/03/2025 3:13 PM EST PROTEIN ELECTROPHORESIS, SERUM Routine 09/03/2025 3:13 PM EST IONIZED CALCIUM, SERUM Routine 09/03/2025 3:13 PM EST PTH INTACT TOTAL Routine 09/03/2025 3:13 PM EST COMPREHENSIVE METABOLIC PANEL, PLASMA STAT 09/03/2025 3:13 PM EST BONE SPECIFIC ALKALINE PHOSPHATASE Routine 09/03/2025 3:13 PM EST PROTEIN ELECTROPHORESIS, SERUM Routine 09/03/2025 3:13 PM EST PTH PANEL 1 Routine 09/03/2025 3:13 PM EST VITAMIN D 25 HYDROXY Routine 09/03/2025 3:13 PM EST ECG ADULT STAT 09/03/2025 1:44 PM EST PB POINT OF CARE IMAGING PLACEHOLDER Routine 09/03/2025 11:55 AM EST XR HIP LEFT 2 OR 3 VIEWS STAT 09/03/2025 10:52 AM EST TYPE AND SCREEN Routine 09/03/2025 10:33 AM EST PREPARE RBC Routine 09/03/2025 10:24 AM EST XR CHEST 1 VIEW Routine 09/03/2025 10:20 AM EST ECG ADULT Routine 09/03/2025 9:38 AM EST CREATINE KINASE, TOTAL, PLASMA Add-On 09/03/2025 8:26 AM EST RETICULOCYTES, BLOOD Add-On 09/03/2025 8:26 AM EST N-TERMINAL PROBNP, PLASMA Add-On 09/03/2025 8:26 AM EST CYSTATIN C Add-On 09/03/2025 8:26 AM EST MAGNESIUM, PLASMA Add-On 09/03/2025 8:26 AM EST PHOSPHORUS, PLASMA Add-On 09/03/2025 8:26 AM EST ED HIV 1/2 ANTIBODY/ANTIGEN SCREEN WITH REFLEX TO HIV I/II DIFFERENTIATION STAT 09/03/2025 8:26 AM EST ED PROTOCOL HIV 1/2 ANTIBODY/ANTIGEN SCREEN W/REFLEX TO HIV 1/2 ANTIBODY DIFFERENTIATION STAT 09/03/2025 8:26 AM EST HEPATITIS C ANTIBODY - ED W/REFLEX TO HCV QUANT PCR STAT 09/03/2025 8:26 AM EST PROTHROMBIN TIME(PT) / INR STAT 09/03/2025 8:26 AM EST CBC WITH AUTO DIFFERENTIAL STAT 09/03/2025 8:26 AM EST COMPREHENSIVE METABOLIC PANEL, PLASMA STAT 09/03/2025 8:26 AM EST XR KNEE LEFT 3 VIEWS STAT 09/03/2025 8:10 AM EST XR FEMUR LEFT 2+ VIEWS STAT 09/03/2025 8:10 AM EST XR HIP LEFT 2 OR 3 VIEWS STAT 09/03/2025 8:[address] NEURO OUTSIDE IMAGES 09/03/2025 4:[address] NEURO OUTSIDE IMAGES 09/03/2025 4:39 AM EST XR MSK OUTSIDE IMAGES 09/03/2025 4:16 AM EST XR THORACIC OUTSIDE IMAGES 09/03/2025 4:16 AM EST XR MSK OUTSIDE IMAGES 09/03/2025 4:11 AM EST HEMOGLOBIN A1C Routine 02/17/2018 11:50 AM EDT from Last 3 Months or Most Recently Relevant to Health Maintenance Results * VAS US Venous Duplex Lower [...] MD, FACS, FSVS, RPVI on09/20/2025 5:10 PM Sarah HERNANDES CV VASCULAR PROCEDURES Final Result * (ABNORMAL) CBC W/O Differential (09/07/2025 4:21 AM EST) Only the most recent of5 resultswithin the time period is included. WBC Count 4.34 3.70 - 10.30 10*3/uL LAB HEMATOLOGY METHOD 09/07/2025 4:45 AM EST [facility] RBC Count 2.56(L) 3.90 - 5.20 10*6/uL LAB HEMATOLOGY METHOD 09/07/2025 4:45 AM EST [facility] HGB 7.6(L) 11.2 - 15.7 g/dL LAB HEMATOLOGY METHOD 09/07/2025 4:45 AM EST [facility] HCT 22.2(L) 34.0 - 45.0 % LAB HEMATOLOGY METHOD 09/07/2025 4:45 AM EST [facility] Platelet Count 53(L) 155 - 369 10*3/uL LAB HEMATOLOGY METHOD 09/07/2025 4:45 AM EST [facility] MCV 87 79 - 98 fL LAB HEMATOLOGY METHOD 09/07/2025 4:45 AM EST [facility] MCH 29.7 26.0 - 32.0 pg LAB HEMATOLOGY METHOD 09/07/2025 4:45 AM EST [facility] MCHC 34.2 30.7 - 35.5 g/dL LAB HEMATOLOGY METHOD 09/07/2025 4:45 AM EST [facility] RDW 14.6(H) 11.5 - 14.5 % LAB HEMATOLOGY METHOD 09/07/2025 4:45 AM EST [facility] MPV LAB HEMATOLOGY METHOD 09/07/2025 4:45 AM EST [facility] Comment:Not Measured nRBC 0.0 <=0.0 per 100 WBCs LAB HEMATOLOGY METHOD 09/07/2025 4:45 AM EST [facility] Blood Venous blood specimen / Unknown Venipuncture / Unknown 09/07/2025 4:21 AM EST 09/07/2025 4:33 AM EST Renu Barros MD LAB BLOOD ORDERABLES Final Resul t Performing Organization Address City/[facility]/ZIP Co de Phone Number [facility] [address] [place] [address] * (ABNORMAL) Phosphorus, Plasma (09/07/2025 4:21 AM EST) Only the most recent of2 resultswithin the time period is included. Phosphorus, Plasma 2.4(L) 2.5 - 4.5 mg/dL 09/07/2025 5:02 AM EST [facility] Blood Venous blood specimen / Unknown Venipuncture / Unknown 09/07/2025 4:21 AM EST 09/07/2025 4:32 AM EST Renu Barros MD LAB BLOOD ORDERABLES Final Resul t Performing Organization Address City/[facility]/ZIP Co de Phone Number [facility] [address] [place] [address] * Magnesium, Plasma (09/07/2025 4:21 AM EST) Only the most recent of2 resultswithin the time period is included. Magnesium, Plasma 2.1 1.9 - 2.4 mg/dL 09/07/2025 5:02 AM EST [facility] Blood Venous blood specimen / Unknown Venipuncture / Unknown 09/07/2025 4:21 AM EST 09/07/2025 4:32 AM EST us Renu Barros MD LAB BLOOD ORDERABLES Final Resul t [facility] [address] [place] [address] * (ABNORMAL) Comprehensive Metabolic Panel, Plasma (09/07/2025 4:21 AM EST) Only the most recent of4 resultswithin the time period is included. Glucose, Plasma 94 74 - 99 mg/dL 09/07/2025 5:02 AM [facility] BUN, Plasma 54(H) 8 - 23 mg/dL 09/07/2025 5:02 AM [facility] Creatinine, Plasma 2.25(H) 0.60 - 1.10 mg/dL 09/07/2025 5:02 AM [facility] BUN/Creatinine Ratio 24 09/07/2025 5:02 AM EST [facility] Sodium, Plasma 127(L) 136 - 145 mmol/L 09/07/2025 5:02 AM [facility] Potassium, Plasma 4.2 3.6 - 4.9 mmol/L 09/07/2025 5:02 AM [facility] Chloride, Plasma 96(L) 97 - 107 mmol/L 09/07/2025 5:02 AM [facility] CO2, Plasma 23 22 - 29 mmol/L 09/07/2025 5:02 AM [facility] Anion Gap 8 6 - 16 mmol/L 09/07/2025 5:02 AM [facility] Total Calcium, Plasma 7.2(L) 8.9 - 10.2 mg/dL 09/07/2025 5:02 AM [facility] Total Protein 3.9(L) 6.3 - 7.9 g/dL 09/07/2025 5:02 AM EST [facility] Albumin, Plasma 2.3(L) 3.5 - 5.2 g/dL 09/07/2025 5:02 AM EST [facility] AST, Plasma 32 10 - 35 U/L 09/07/2025 5:02 AM EST [facility] ALT, Plasma <5(L) 10 - 35 U/L 09/07/2025 5:02 AM EST [facility] Alkaline Phosphatase, Plasma 37(L) 46 - 142 U/L 09/07/2025 5:02 AM EST [facility] Total Bilirubin, Plasma 0.6 0.2 - 1.1 mg/dL 09/07/2025 5:02 AM EST [facility] eGFRcr 21.2 mL/min/1.7 3m*2 09/07/2025 5:02 AM EST [facility] Comment:Reported eGFRcr in m L/min/1.73m2 is based the CKD-EPI 2020 equation that does not use a race coefficient. Blood Venous blood specimen / Unknown Venipuncture / Unknown 09/07/2025 4:21 AM EST 09/07/2025 4:32 AM EST us Renu Barros MD LAB BLOOD ORDERABLES Final Resul t [facility] [address] [place] [address] * (ABNORMAL) CBC and differential (09/06/2025 3:17 PM EST) Only the most recent of2 resultswithin the time period is included. WBC Count 6.05 3.70 - 10.30 10*3/uL LAB HEMATOLOGY METHOD 09/06/2025 4:09 PM EST [facility] RBC Count 3.27(L) 3.90 - 5.20 10*6/uL LAB HEMATOLOGY METHOD 09/06/2025 4:09 PM EST [facility] HGB 9.8(L) 11.2 - 15.7 g/dL LAB HEMATOLOGY METHOD 09/06/2025 4:09 PM EST [facility] HCT 28.9(L) 34.0 - 45.0 % LAB HEMATOLOGY METHOD 09/06/2025 4:09 PM [facility] Platelet Count 63(L) 155 - 369 10*3/uL LAB HEMATOLOGY METHOD 09/06/2025 4:09 PM [facility] MCV 88 79 - 98 fL LAB HEMATOLOGY METHOD 09/06/2025 4:09 PM [facility] MCH 30.0 26.0 - 32.0 pg LAB HEMATOLOGY METHOD 09/06/2025 4:09 PM [facility] MCHC 33.9 30.7 - 35.5 g/dL LAB HEMATOLOGY METHOD 09/06/2025 4:09 PM [facility] RDW 14.1 11.5 - 14.5 % LAB HEMATOLOGY METHOD 09/06/2025 4:09 PM [facility] MPV LAB HEMATOLOGY METHOD 09/06/2025 4:09 PM [facility] Comment:Not Measured nRBC 0.0 <=0.0 per 100 WBCs LAB HEMATOLOGY METHOD 09/06/2025 4:09 PM [facility] Differential Type Automated LAB HEMATOLOGY METHOD 09/06/2025 4:09 PM [facility] Neutrophils % 82 % LAB HEMATOLOGY METHOD 09/06/2025 4:09 PM [facility] Lymphocytes % 10 % LAB HEMATOLOGY METHOD 09/06/2025 4:09 PM [facility] Monocytes % 7 % LAB HEMATOLOGY METHOD 09/06/2025 4:09 PM [facility] Eosinophils % 1 % LAB HEMATOLOGY METHOD 09/06/2025 4:09 PM [facility] Basophils % 0 % LAB HEMATOLOGY METHOD 09/06/2025 4:09 PM [facility] Immature Granulocytes % 0 % LAB HEMATOLOGY METHOD 09/06/2025 4:09 PM [facility] Neutrophils Absolute 4.96 1.60 - 6.10 10*3/uL LAB HEMATOLOGY METHOD 09/06/2025 4:09 PM [facility] Lymphocytes Absolute 0.60(L) 1.20 - 3.90 10*3/uL LAB HEMATOLOGY METHOD 09/06/2025 4:09 PM [facility] Monocytes Absolute 0.40 0.30 - 0.90 10*3/uL LAB HEMATOLOGY METHOD 09/06/2025 4:09 PM EST [facility] Eosinophils Absolute 0.06 0.00 - 0.50 10*3/uL LAB HEMATOLOGY METHOD 09/06/2025 4:09 PM EST [facility] Basophils Absolute 0.01 0.00 - 0.10 10*3/uL LAB HEMATOLOGY METHOD 09/06/2025 4:09 PM EST [facility] Immature Granulocytes Absolute 0.02 0.00 - 0.06 10*3/uL LAB HEMATOLOGY METHOD 09/06/2025 4:09 PM EST [facility] Blood Venous blood specimen / Unknown Venipuncture / Unknown 09/06/2025 3:17 PM EST 09/06/2025 3:46 PM EST Narrative [facility] - 09/06/2025 4:09 PM EST Therapeutic decision making should be based on absolute values, rather than percentages. Renu Barros MD LAB BLOOD ORDERABLES Final Resul t Performing Organization Address City/[facility]/ZIP Co de Phone Number [facility] [address] [place] [address] * (ABNORMAL) Sodium (09/06/2025 3:17 PM EST) Sodium, Plasma 125(L) 136 - 145 mmol/L 09/06/2025 4:15 PM EST [facility] Blood Venous blood specimen / Unknown Venipuncture / Unknown 09/06/2025 3:17 PM EST 09/06/2025 3:49 PM EST Renu Barros MD LAB BLOOD ORDERABLES Final Resul t [facility] [address] [place] [address] * Potassium (09/06/2025 3:17 PM EST) Only the most recent of2 resultswithin the time period is included. Potassium, Plasma 4.5 3.6 - 4.9 mmol/L 09/06/2025 11:36 PM EST [facility] Blood Venous blood specimen / Unknown Venipuncture / Unknown 09/06/2025 3:17 PM EST 09/06/2025 3:49 PM EST Renu Barros MD LAB BLOOD ORDERABLES Final Resul t Performing Organization Address City/[facility]/ZIP Co de Phone Number [facility] [address] [place] [address] * Transfuse RBC (09/06/2025 1:35 PM EST) Only the most recent of2 resultswithin the time period is included. Renu Barros MD BLOOD TRANSFUSION ORDERABLES Fin al Result * Prepare Leukocyte Reduced RBC: 1 Units (09/06/2025 7:07 AM EST) Product Code [id number] BLOO D BANK Dispense Status Transfused BLOOD BANK Blood Expiration Date [id number] BLOOD BANK Unit Number [id number] CH B LOOD BANK Product Blood Type 6200 BLOOD BANK Blood Type A+ BLOOD BANK Crossmatch Compatible BLOOD BANK Other Renu Barros MD BLOOD BANK PRODUCT ORDERABLES Fi nal Result Performing Organization Address City/[facility] Co de Phone Number BLOOD BANK [address] * (ABNORMAL) Renal function panel (09/06/2025 4:06 AM EST) Only the most recent of2 resultswithin the time period is included. Glucose, Plasma 90 74 - 99 mg/dL 09/06/2025 6:07 AM EST [facility] BUN, Plasma 47(H) 8 - 23 mg/dL 09/06/2025 6:07 AM EST [facility] Creatinine, Plasma 2.84(H) 0.60 - 1.10 mg/dL 09/06/2025 6:07 AM EST [facility] BUN/Creatinine Ratio 17 09/06/2025 6:07 AM EST [facility] Sodium, Plasma 123(L) 136 - 145 mmol/L 09/06/2025 6:07 AM EST [facility] Potassium, Plasma 4.9 3.6 - 4.9 mmol/L 09/06/2025 6:07 AM EST [facility] Chloride, Plasma 95(L) 97 - 107 mmol/L 09/06/2025 6:07 AM EST [facility] CO2, Plasma 20(L) 22 - 29 mmol/L 09/06/2025 6:07 AM EST [facility] Anion Gap 8 6 - 16 mmol/L 09/06/2025 6:07 AM EST [facility] Total Calcium, Plasma 7.5(L) 8.9 - 10.2 mg/dL 09/06/2025 6:07 AM EST [facility] Phosphorus, Plasma 2.6 2.5 - 4.5 mg/dL 09/06/2025 6:07 AM EST [facility] Albumin, Plasma 2.8(L) 3.5 - 5.2 g/dL 09/06/2025 6:07 AM EST [facility] eGFRcr 16.0 mL/min/1.7 3m*2 09/06/2025 6:07 AM [facility] Comment:Reported eGFRcr in m L/min/1.73m2 is based the CKD-EPI 2020 equation that does not use a race coefficient. Blood Venous blood specimen / Unknown Venipuncture / Unknown 09/06/2025 4:06 AM EST 09/06/2025 4:40 AM EST us Renu Barros MD LAB BLOOD ORDERABLES Final Resul t [facility] [address] [place] [address] * (ABNORMAL) POCT glucose meter (09/05/2025 1:43 PM EST) Only the most recent of13 resultswithin the time period is included. POCT Glucose 138(H) 74 - 99 mg/dL 09/05/2025 8:01 PM [facility] Comment:Accuracy of a glucos e result [...] for testing. Comment 09/05/2025 8:01 PM EST [facility] Academic Affairs Vice President ID Lisette Decker 09/05/20 8:01 PM EST [facility] Device ID [id number] 09/05/2025 8:01 PM EST [facility] Specimen Type POC Capillary 09/05/2025 8:01 PM EST [facility] Blood Capillary blood specimen / Unknown 09/05/2025 1:43 PM EST 09/05/2025 8:01 PM EST us Renu Barros MD LAB POINT OF CARE TE ST DOCKED DEVICE UNSOLICITED RESULTS Final Result Performing Organization Address City/State/[facility] Co de Phone Number [facility] [address] [place] [address] * (ABNORMAL) Basic metabolic panel (09/05/2025 12:56 AM EST) Glucose, Plasma 125(H) 74 - 99 mg/dL 09/05/2025 1:33 AM EST [facility] BUN, Plasma 38(H) 8 - 23 mg/dL 09/05/2025 1:33 AM EST [facility] Creatinine, Plasma 3.15(H) 0.60 - 1.10 mg/dL 09/05/2025 1:33 AM EST [facility] BUN/Creatinine Ratio 12 09/05/2025 1:33 AM EST [facility] Sodium, Plasma 127(L) 136 - 145 mmol/L 09/05/2025 1:33 AM EST [facility] Potassium, Plasma 5.8(H) 3.6 - 4.9 mmol/L 09/05/2025 1:33 AM EST [facility] Chloride, Plasma 97 97 - 107 mmol/L 09/05/2025 1:33 AM EST [facility] CO2, Plasma 22 22 - 29 mmol/L 09/05/2025 1:33 AM EST [facility] Anion Gap 8 6 - 16 mmol/L 09/05/2025 1:33 AM EST [facility] Total Calcium, Plasma 7.6(L) 8.9 - 10.2 mg/dL 09/05/2025 1:33 AM EST [facility] eGFRcr 14.1 mL/min/1.7 3m*2 09/05/2025 1:33 AM EST [facility] Comment:Reported eGFRcr in m L/min/1.73m2 is based the CKD-EPI 2020 equation that does not use a race coefficient. Blood Venous blood specimen / Unknown Venipuncture / Unknown 09/05/2025 12:56 AM EST 09/05/2025 1:01 AM EST us Jose Antonio Hernández MD LAB BLOOD ORDERABLES Final R esult [facility] [address] [place] [address] * XR Femur Left 2+ Views (09/04/2025 1:11 PM EST) Only the most recent of2 resultswithin the time period is included. Anatomical Region Laterality Modality Lower Extremities, Femur [...] Cy Saha MD on 09/04/2025 1:23 PM Jose Antonio Hernández MD IMG XR PROCEDURES Final Resu lt * FL Less than 1 Hour Intraoperative (09/04/2025 12:02 PM EST) Narrative IMAGING - 09/04/2025 12:03 PM EST Images were obtained for surgical purposes. See Jose Antonio Hernández's surgical note in the patient's chart for the findings. us Jose Antonio Hernández MD IMG FLUOROSCOPY PROCEDURES F inal Result IMAGING * PB ANESTHESIA NON-TIMED PROCEDURE PLACEHOLDER (09/04/2025 11:05 AM EST) Narrative Vaishnavi Rosales CRNA - 09/04/2025 11:05 AM EST Vaishnavi [...] procedure well with no complications. Staffing Performed: POLICE SHIFT COMMANDER POLICE SHIFT COMMANDER: Vaishnavi Rosales CRNA Quang Rodriguez MD ANESTHESIA ORDERABLES Final R esult * (ABNORMAL) POCT arterial blood gas gem (09/04/2025 10:56 AM EST) pH, Arterial 7.39 7.31 - 7.42 09/05/2025 2:30 PM EST [facility] pCO2, Arterial 41 35 - 48 mm Hg 09/05/2025 2:30 PM EST [facility] pO2, Arterial 80 >60 mm Hg 09/05/2025 2:30 PM [facility] SO2, Arterial 98 94 - 98 % 09/05/2025 2:30 PM [facility] FIO2 70.0 % 09/05/2025 2:30 PM [facility] Base Excess, Arterial -0.2 -2 - 3 mmol/L 09/05/2025 2:30 PM [facility] HCO3, Arterial 24.8 22 - 26 mmol/L 09/05/2025 2:30 PM [facility] Total Hemoglobin, Arterial, Whole Blood 7.8(L) 11.2 - 15.7 g/dL 09/05/2025 2:30 PM [facility] Hematocrit, Arterial 23.0(L) 34.0 - 45.0 % 09/05/2025 2:30 PM [facility] Sodium, Arterial 127(L) 136 - 145 mmol/L 09/05/2025 2:30 PM [facility] Potassium, Arterial 5.1(H) 3.6 - 4.9 mmol/L 09/05/2025 2:30 PM [facility] Chloride, Whole Blood 101 97 - 107 mmol/L 09/05/2025 2:30 PM [facility] Glucose, Arterial 104(H) 74 - 99 mg/dL 09/05/2025 2:30 PM [facility] Ionized Calcium, Arterial 5.0 4.6 - 5.1 mg/dL 09/05/2025 2:30 PM [facility] Lactate, Arterial 0.6 0.5 - 1.6 mmol/L 09/05/2025 2:30 PM [facility] Body Temperature 37.0 Celsius 09/05/2025 2:30 PM [facility] pH, Temp Corrected, Arterial 7.39 7.31 - 7.42 09/05/2025 2:30 PM [facility] pCO2, Temp Corrected, Arterial 41 35 - 48 mm Hg 09/05/2025 2:30 PM [facility] pO2, Temp Corrected, Arterial 80 >60 mm Hg 09/05/2025 2:30 PM [facility] Academic Affairs Vice President ID Vaishnavi Rosales 09/05/2025 2:30 PM [facility] Blood, Arterial Whole blood specimen / Unknown 09/04/2025 10:56 AM EST 09/05/2025 2:30 PM EST Renu Barros MD LAB POINT OF CARE TE ST DOCKED DEVICE UNSOLICITED RESULTS Final Result [facility] [address] [place] [address] * NE AN ELECTIVE ENDOTRACHEAL AIRWAY, PB ANESTHESIA PLACEHOLDER (09/04/2025 10:32 AM EST) Narrative Vaishnavi Rosales CRNA - 09/04/2025 10:32 AM EST Vaishnavi Rosales CRNA 09/04/2025 11:00 AM Airway Date/Time: 09/04/2025 10:32 AM Reason: elective Airway not difficult General Information and Staff Patient location during procedure: OR POLICE SHIFT COMMANDER: Vaishnavi Rosales CRNA Performed: ALBA Patient Condition Indications for airway management: anesthesia [...] Additional Comments Atraumatic. No change to dentition. Quang Rodriguez MD ANESTHESIA ORDERABLES Final R esult * Peripheral IV (09/04/2025 10:30 AM EST) Narrative Vaishnavi Rosales CRNA - 09/04/2025 10:30 AM EST Vaishnavi Rosales CRNA 09/04/2025 11:00 AM Peripheral IV Date/Time: 09/04/2025 10:30 AM Placement Needle size: 16 G Location: forearm Local anesthetic: none Site prep: alcohol Technique: anatomical landmarks Attempts: 1 Quang Rodriguez MD ANESTHESIA ORDERABLES Final R esult * ECG Adult (09/04/2025 9:58 AM EST) Only the most recent of3 resultswithin the time period is included. EKG DIAGNOSIS CLASS Abnormal MUSE ECG Ventricular Rate 65 BPM MUSE ECG Atrial Rate 65 BPM MUSE ECG NE Interval 172 ms MUSE ECG QRSD Interval 84 ms MUSE ECG QT Interval 448 ms MUSE ECG QTC Interval 465 ms MUSE ECG P [place] 41 degrees MUSE ECG R [place] -13 degrees MUSE ECG T Wave [place] 100 degrees MUSE ECG Diagnosis Sinus rhythm with marked sinus arrhythmia MUSE ECG Diagnosis Minimal voltage criteria for LVH, may be normal variant ( Sokolow-Lin ) MUSE ECG Diagnosis Septal infarct , age undetermined MUSE ECG Diagnosis Abnormal ECG MUSE ECG Diagnosis MUSE ECG Diagnosis Confirmed by William Richmond ([id number]) on 09/04/2025 10:16:03 AM MUSE ECG 09/04/2025 9:58 AM EST 09/04/2025 10:16 AM EST us Quang Rodriguez MD ECG ORDERABLES Final Result MUSE ECG * Lavender Top (09/04/2025 9:00 AM EST) Extra Hold for add-ons 09/04/2025 12:01 PM EST [facility] Comment:Auto resulted. Blood Venous blood specimen / Unknown 09/04/2025 9:00 AM EST 09/04/2025 9:07 AM EST us Renu Barros MD LAB BLOOD ORDERABLES Final Resul t [facility] [address] [place] [address] * ECHO, ADULT TRANSTHORACIC COMPLETE (09/04/2025 8:40 [...] Ao Diam 24 mm ANTONY ISCV PA NE(ACCEL) 14.2 mmHg ANTONY ISCV LV mean PG [...] there is no significant interval change noted. Julia Spangler DO CV ECHO PROCEDURES Final Result * Methicillin Resistant Staphylococcus aureus (MRSA) by PCR (09/04/2025 5:00 AM EST) Methicillin Resistant Staphylococcus aureus (MRSA) by PCR Not Detected Not Detected 09/04/2025 7:07 AM EST [facility] Swab Both anterior nares / Unknown Non-blood Collection / Unknown 09/04/2025 5:00 AM EST 09/04/2025 5:49 AM EST Narrative [facility] - 09/04/2025 7:07 AM EST This test is FDA approved for use with nares swab specimens using the eSwabs. This test is used for clinical purposes. It should not be regarded as investigational or for research. This laboratory is certified under the Clinical Laboratory improvement Amendments of 1988 (CLIA-88 as qualified to perform high complexity clinical laboratory testing. us Julia Spangler DO LAB MICROBIOLOGY - GENERAL KADI CARRERA Final Result Performing Organization Address City/[facility]/ZIP Co de Phone Number [facility] [address] [place] [address] * (ABNORMAL) Protime-INR (09/04/2025 12:09 AM EST) Only the most recent of2 resultswithin the time period is included. Prothrombin Time 15.1(H) 12.0 - 14.3 sec LAB COAGULATION METHOD 09/04/2025 12:42 AM EST [facility] INR 1.1 0.9 - 1.1 LAB COAGULATION METHOD 09/04/2025 12:42 AM EST [facility] Blood Venous blood specimen / Unknown Venipuncture / Unknown 09/04/2025 12:09 AM EST 09/04/2025 12:25 AM EST Narrative [facility] - 09/04/2025 12:42 AM EST OPTIMAL INR RANGES FOR PATIENT ON ORAL ANTICOAGULANT THERAPY Prevention of venous thromboembolism INR 2.0 to 3.0 In patients with heart disease: Atrial fibrillation INR 2.0 to 3.0 Valvular heart disease INR 2.0 to 3.0 Tissue heart valves INR 2.0 to 3.0 Mechanical prosthetic valves INR 2.5 to 3.5 Prevention of recurrent KS INR 2.5 to 3.5 us Karrie Fan PA LAB BLOOD ORDERABLES Final Re sult Performing Organization Address City/[facility]/ZIP Co de Phone Number [facility] [address] [place] [address] * CT Bony Pelvis (09/03/2025 4:49 PM EST) Anatomical Region Laterality Modality Pelvis Computed Tomogra phy Impressions 09/03/2025 5:01 PM EST Acute comminuted angulated intertrochanteric left femur fracture. Degenerative changes and demineralization as described. [place] hyperdense structure in the region of the [...] [facility] This is only partially imaged. Left glutealinjection granulomas. IMPRESSION: Acute comminuted angulated intertrochanteric left femur fracture. Degenerative changes and demineralization as described. [place] hyperdense structure in the region of the right renal pelvis whichwas present on prior radiograph and may represent a large renal calculus. CRITICAL RESULT: No. COMMUNICATION: Per this written report. Drafted by Aureliano Wilson MD on 09/03/2025 4:56 PM Final report signed by Aureliano Wilson MD on 09/03/2025 5:01 PM Shane Cannon MD IMG CT PROCEDURES Final Re sult * Bone Specific Alkaline Phosphatase (09/03/2025 3:13 PM EST) Bone Specific Alkaline Phosphatase 09/06/2025 10:19 AM EST [facility] Comment:See Scanned Report. Testing performed on [facility]. [address] [place] [id number]. Korey Nettles MD, PhD, Junior Underwriter. Blood Venous blood specimen / Unknown Venipuncture / Unknown 09/03/2025 3:13 PM EST 09/03/2025 4:21 PM EST Julia Spangler DO LAB REF LAB BLOOD AND FLUID ORD Final Result [facility] [address] [place] [address] * (ABNORMAL) Total Protein, Serum (09/03/2025 3:13 PM EST) Total Protein 5.8(L) 6.2 - 7.7 g/dL 09/03/2025 4:58 PM EST [facility] Blood Venous blood specimen / Unknown Venipuncture / Unknown 09/03/2025 3:13 PM EST 09/03/2025 4:21 PM EST Julia Spangler DO LAB BLOOD ORDERABLES Final Resu lt [facility] [address] [place] [address] * Protein Electrophoresis, Serum (09/03/2025 3:13 PM EST) Albumin Electrophoresis, Serum 3.6 3.6 - 4.7 g/dL 09/05/2025 3:54 AM EST [facility] Alpha 1 Globulin Electrophoresis, Serum 0.3 0.2 - 0.4 g/dL 09/05/2025 3:54 AM EST [facility] Alpha 2 Globulin Electrophoresis, Serum 0.6 0.5 - 0.9 g/dL 09/05/2025 3:54 AM EST [facility] Beta 1 Globulin Electrophoresis, Serum 0.3 0.3 - 0.5 g/dL 09/05/2025 3:54 AM EST [facility] Beta 2 Globulin Electrophoresis, Serum 0.3 0.2 - 0.5 g/dL 09/05/2025 3:54 AM EST [facility] Gamma Globulin Electrophoresis, Serum 0.7 0.6 - 1.5 g/dL 09/05/2025 3:54 AM EST [facility] Interpretation, Serum Protein Electrophoresis Pathology report to follow. 09/05/2025 3:54 AM EST [facility] Blood Venous blood specimen / Unknown Venipuncture / Unknown 09/03/2025 3:13 PM EST 09/03/2025 4:21 PM EST us Julia Fourshama SMITH LAB BLOOD ORDERABLES Final Resu lt [facility] [address] [place] [address] * (ABNORMAL) Peripheral Blood Smear (09/03/2025 3:13 PM EST) WBC Count 5.87 3.70 - 10.30 10*3/uL LAB HEMATOLOGY METHOD 09/03/2025 5:28 PM EST [facility] RBC Count 2.53(L) 3.90 - 5.20 10*6/uL LAB HEMATOLOGY METHOD 09/03/2025 5:28 PM EST [facility] HGB 7.8(L) 11.2 - 15.7 g/dL LAB HEMATOLOGY METHOD 09/03/2025 5:28 PM EST [facility] HCT 23.3(L) 34.0 - 45.0 % LAB HEMATOLOGY METHOD 09/03/2025 5:28 PM EST [facility] Platelet Count 69(L) 155 - 369 10*3/uL LAB HEMATOLOGY METHOD 09/03/2025 5:28 PM EST [facility] MCV 92 79 - 98 fL LAB HEMATOLOGY METHOD 09/03/2025 5:28 PM EST [facility] MCH 30.8 26.0 - 32.0 pg LAB HEMATOLOGY METHOD 09/03/2025 5:28 PM EST [facility] MCHC 33.5 30.7 - 35.5 g/dL LAB HEMATOLOGY METHOD 09/03/2025 5:28 PM EST [facility] RDW 14.1 11.5 - 14.5 % LAB HEMATOLOGY METHOD 09/03/2025 5:28 PM EST [facility] MPV LAB HEMATOLOGY METHOD 09/03/2025 5:28 PM EST [facility] Comment:Not Measured Not Chuyita sured nRBC 0.0 <=0.0 per 100 WBCs LAB HEMATOLOGY METHOD 09/03/2025 5:28 PM EST [facility] Differential Type Automated LAB HEMATOLOGY METHOD 09/03/2025 5:28 PM EST [facility] Neutrophils % 80 % LAB HEMATOLOGY METHOD 09/03/2025 5:28 PM EST [facility] Lymphocytes % 9 % LAB HEMATOLOGY METHOD 09/03/2025 5:28 PM EST [facility] Monocytes % 10 % LAB HEMATOLOGY METHOD 09/03/2025 5:28 PM EST [facility] Eosinophils % 0 % LAB HEMATOLOGY METHOD 09/03/2025 5:28 PM EST [facility] Basophils % 0 % LAB HEMATOLOGY METHOD 09/03/2025 5:28 PM EST [facility] Immature Granulocytes % 1 % LAB HEMATOLOGY METHOD 09/03/2025 5:28 PM EST [facility] Neutrophils Absolute 4.68 1.60 - 6.10 10*3/uL LAB HEMATOLOGY METHOD 09/03/2025 5:28 PM EST [facility] Lymphocytes Absolute 0.51(L) 1.20 - 3.90 10*3/uL LAB HEMATOLOGY METHOD 09/03/2025 5:28 PM EST [facility] Monocytes Absolute 0.56 0.30 - 0.90 10*3/uL LAB HEMATOLOGY METHOD 09/03/2025 5:28 PM EST [facility] Eosinophils Absolute 0.01 0.00 - 0.50 10*3/uL LAB HEMATOLOGY METHOD 09/03/2025 5:28 PM EST [facility] Basophils Absolute 0.01 0.00 - 0.10 10*3/uL LAB HEMATOLOGY METHOD 09/03/2025 5:28 PM EST [facility] Immature Granulocytes Absolute 0.03 0.00 - 0.06 10*3/uL LAB HEMATOLOGY METHOD 09/03/2025 5:28 PM EST [facility] Blood Venous blood specimen / Unknown Venipuncture / Unknown 09/03/2025 3:13 PM EST 09/03/2025 3:31 PM EST Narrative [facility] - 09/03/2025 5:28 PM EST Therapeutic decision making should be based on absolute values, rather than percentages. us Julia Spangler DO LAB PATHOLOGY ORDERABLES Final Result [facility] [address] [place] [address] * Protein electrophoresis serum, pathologist interpretation (09/03/2025 3:13 PM EST) Clinical Diagnosis, SPEP Displaced intertrochanteric fracture of left femur, initial encounter for closed fracture 09/05/2025 10:25 AM EST [facility] Interpretation , SPEP There are no significant abnormalities in the protein electrophoretic pattern. 09/05/2025 10:25 AM EST [facility] Pathologist Signature, SPEP Reviewed by: Ishaan Alberto MD 09/05/2025 10:25 AM EST [facility] LAB CP ASR DISCLAIMER No 09/05/2025 10:25 AM EST [facility] Blood Venous blood specimen / Unknown Venipuncture / Unknown 09/03/2025 3:13 PM EST 09/03/2025 4:21 PM EST us Julia Spangler DO LAB PATHOLOGY ORDERABLES Final Result Performing Organization Address [facility]/ZIP Co de Phone Number [facility] [address] [place] [address] * Ionized calcium, serum (09/03/2025 3:13 PM EST) Ionized Calcium, Serum 4.8 4.6 - 5.3 mg/dL LAB HEMATOLOGY METHOD 09/03/2025 4:48 PM EST [facility] Blood Venous blood specimen / Unknown Venipuncture / Unknown 09/03/2025 3:13 PM EST 09/03/2025 4:21 PM EST us Julia Spangler DO LAB BLOOD ORDERABLES Final Resu lt Performing Organization Address City/[facility]/ZIP Co de Phone Number [facility] [address] [place] [address] * (ABNORMAL) Iron & Total Iron Binding Capacity, Plasma (Includes Transferrin) (09/03/2025 3:13 PM EST) Iron, Plasma 21(L) 30 - 160 ug/dL 09/03/2025 4:28 PM EST [facility] Transferrin, Plasma 150(L) 200 - 360 mg/dL 09/03/2025 4:28 PM EST [facility] Total Iron Binding Capacity, Plasma 188(L) 240 - 450 ug/mL 09/03/2025 4:28 PM EST [facility] Transferrin Saturation 11(L) 14 - 50 % 09/03/2025 4:28 PM EST [facility] Blood Venous blood specimen / Unknown Venipuncture / Unknown 09/03/2025 3:13 PM EST 09/03/2025 3:31 PM EST [facility]AR[facility] LAB BLOOD ORDERABLES Final Resu lt Performing Organization Address [facility] de Phone Number [facility] [address] [place] [address] * Peripheral blood smear, pathologist interpretation (09/03/2025 3:13 PM EST) Clinical Diagnosis, Peripheral Smear Anemia and Thrombocytopenia LAB HEMATOLOGY METHOD 09/04/2025 4:14 PM EST [facility] Interpretation , Peripheral Smear Moderate normocytic anemia with rare target cells. White blood cells are essentially normal in counts and morphology. Moderate thrombocytopenia with occasional giant platelet forms, without significant clumping. 09/04/2025 4:14 PM EST [facility] Pathologist Signature, Peripheral Smear 09/04/2025 4:14 PM EST [facility] Comment:Reviewed by: Ely Cid MD Blood Venous blood specimen / Unknown Venipuncture / Unknown 09/03/2025 3:13 PM EST 09/03/2025 3:31 PM EST [facility] PATHOLOGY ORDERABLES Final Result Performing Organization Address [facility] Co de Phone Number [facility] [address] [place] [address] * Vitamin D 25 hydroxy (09/03/2025 3:13 PM EST) Vitamin D 25 Hydroxy 20.9 20.0 - 80.0 ng/mL 09/03/2025 5:32 PM EST [facility] Blood Venous blood specimen / Unknown Venipuncture / Unknown 09/03/2025 3:13 PM EST 09/03/2025 4:21 PM EST Narrative [facility] - 09/03/2025 5:32 PM EST Testing performed on [employer], standardized against NIST SRM 2972. When testing [...] to 80 ng/mL Possible toxicity: >100 ng/mL [facility] LAB BLOOD ORDERABLES Final Resu lt Performing Organization Address [facility] Co de Phone Number [facility] [address] [place] [address] * (ABNORMAL) PTH Intact Total (09/03/2025 3:13 PM EST) PTH Intact Total 119(H) 9 - 77 pg/mL 09/03/2025 5:15 PM EST [facility] Blood Venous blood specimen / Unknown Venipuncture / Unknown 09/03/2025 3:13 PM EST 09/03/2025 4:38 PM EST Narrative [facility] - 09/03/2025 5:15 PM EST Assay performed by immunoassay at the [facility]. Performed on [employer] chemiluminescent immunoassay, tractable to the World Health Organization's first international standard for PTH from the [facility], Code 79/500. Results obtained from different test methods or kits cannot be used interchangeably. [facility] LAB BLOOD ORDERABLES Final Resu lt [facility] [address] [place] [address] * (ABNORMAL) Ferritin (09/03/2025 3:13 PM EST) Ferritin, Serum 169(H) 13 - 150 ng/mL 09/03/2025 4:58 PM EST [facility] Blood Venous blood specimen / Unknown Venipuncture / Unknown 09/03/2025 3:13 PM EST 09/03/2025 4:21 PM EST us Julia Spangler DO LAB BLOOD ORDERABLES Final Resu lt [facility] [address] [place] [address] * PB POINT OF CARE IMAGING PLACEHOLDER [...] supine Prep: ChloraPrep Patient monitoring: heart rate, monitor worker and continuous pulse ox Block type: fascia [...] Injection 25 mL - 09/03/2025 11:55:00 AM Stephane Enamorado MD ANESTHESIA ORDERABLES Final Resu lt * XR Hip Left 2 or 3 Views (09/03/2025 10:52 AM EST) Only the most recent of2 resultswithin the time period is included. Anatomical Region Laterality Modality Lower Extremities, Hip [...] Ava Coughlin MD on 09/03/2025 12:09 PM Shane Cannon MD IMG XR PROCEDURES Final Re sult * Type and screen (09/03/2025 10:33 AM EST) ABO/Rh A Positive 09/03/2025 10:41 AM EST BLOOD BANK Antibody Screen Negative 09/03/2025 10:41 AM EST BLOOD BANK Specimen Expiration 09/06/2025 23:59 09/03/2025 10:41 AM EST BLOOD BANK Blood Venous blood specimen / Unknown Venipuncture / Unknown 09/03/2025 10:33 AM EST 09/03/2025 10:41 AM EST [facility] BLOOD BANK TEST ORDERABLE S Final Result BLOOD BANK [address] [place] [address], [place] * XR Chest 1 View (09/03/2025 10:20 [...] Ava Coughlin MD on 09/03/2025 1:02 PM us [facility] IMG XR PROCEDURES Final Resul t * ED HIV 1/2 Antibody/Antigen Screen w/Reflex to HIV 1/2 Differentiation (09/03/2025 8:26 AM EST) HIV 1 & 2 Antibody/Antigen Screen Non Reactive Non Reactive 09/03/2025 9:19 AM EST [facility] Comment:Screening for HIV 1 & 2 antibodies, and P24 antigen is NONREACTIVE. No confirmatory testing is required. Blood Venous blood specimen / Unknown Venipuncture / Unknown 09/03/2025 8:26 AM EST 09/03/2025 8:36 AM EST us Dominick Curtis MD LAB BLOOD ORDERABLES Final R esult Performing Organization Address [facility]/[place] [address] * (ABNORMAL) Cystatin C (09/03/2025 8:26 AM EST) Pathologist [facility] Cystatin C 2.09(H) 0.61 - 0.95 mg/L 09/03/2025 1:04 PM EST [facility] Blood Venous blood specimen / Unknown Venipuncture / Unknown 09/03/2025 8:26 AM EST 09/03/2025 8:29 AM EST us Julia Spangler DO LAB BLOOD ORDERABLES Final Resu lt Performing Organization Address [facility] de Phone Number [facility] [address] [place] [address] * (ABNORMAL) Creatine Kinase (CK), Total (09/03/2025 8:26 AM EST) Creatine Kinase, Plasma 819(H) 37 - 168 U/L 09/03/2025 1:05 PM EST [facility] Blood Venous blood specimen / Unknown Venipuncture / Unknown 09/03/2025 8:26 AM EST 09/03/2025 8:29 AM EST us Julia Spangler DO LAB BLOOD ORDERABLES Final Resu lt Performing Organization Address City/[facility] Co de Phone Number [facility] [address] [place] [address] * Hepatitis C Antibody - ED (09/03/2025 8:26 AM EST) Hepatitis C Antibody Negative Negative 09/03/2025 9:19 AM EST [facility] Blood Venous blood specimen / Unknown Venipuncture / Unknown 09/03/2025 8:26 AM EST 09/03/2025 8:36 AM EST us Dominick Curtis MD LAB BLOOD ORDERABLES Final R esult Performing Organization Address City/[facility]/ZIP Co de Phone Number [facility] [address] [place] [address] * N-Terminal Probnp (09/03/2025 8:26 AM EST) Pathologist [facility] N-Terminal, PROBNP, Plasma 1,323 0 - 1,799 pg/mL 09/03/2025 12:30 PM EST [facility] Blood Venous blood specimen / Unknown Venipuncture / Unknown 09/03/2025 8:26 AM EST 09/03/2025 8:29 AM EST us Julia Spangler DO LAB BLOOD ORDERABLES Final Resu lt Performing Organization Address City/[facility]/[place] [address] * (ABNORMAL) Reticulocytes (09/03/2025 8:26 AM EST) Pathologist [facility] Reticulocyte Absolute 27.1(L) 40.0 - 110.0 10*3/uL LAB HEMATOLOGY METHOD 09/03/2025 2:13 PM EST [facility] Immature Reticulocyte Fraction 9.7 3.1 - 17.6 % LAB HEMATOLOGY METHOD 09/03/2025 2:13 PM EST [facility] Reticulocyte Hemoglobin 35.1 28 - 38 pg LAB HEMATOLOGY METHOD 09/03/2025 2:13 PM EST [facility] Reticulocyte Count 0.90 0.90 - 2.50 % LAB HEMATOLOGY METHOD 09/03/2025 2:13 PM EST [facility] Blood Venous blood specimen / Unknown Venipuncture / Unknown 09/03/2025 8:26 AM EST 09/03/2025 8:29 AM EST Julia Spangler DO LAB BLOOD ORDERABLES Final Resu lt [facility] [address] [place] [address] * XR Knee Left 3 Views (09/03/2025 8:10 AM EST) Anatomical Region Laterality Modality Lower Extremities, Knee Left Digital Radiography Impressions 09/03/2025 9:09 AM EST Intertrochanteric left femur fracture as described above. Diffuse osteopenia and degenerative change as described above CRITICAL RESULT: No. COMMUNICATION: Per this written report. Drafted by Lakesha Rahman MD on 09/03/2025 9:03 AM Final report signed by Lakesha Rahman MD on 09/03/2025 9:09 AM Narrative [...] is no acute fracture appreciated. Procedure Note Lakesha Rahman MD - 09/03/2025 CLINICAL INDICATION: Left [...] COMMUNICATION: Per this written report. Drafted by Lakesha Rahman MD on 09/03/2025 9:03 AM Final report signed by Lakesha Rahman MD on 09/03/2025 9:09 AM Dominick Curtis MD IMG XR PROCEDURES Final Resu lt * CT NEURO OUTSIDE IMAGES (09/03/2025 4:41 AM EST) Only the most recent of2 resultswithin the time period is included. Anatomical Region Laterality Modality Computed Tomogra phy 09/03/2025 4:41 AM EST us External Provider IMG CT PROCEDURES Edited Resul t - Final * XR THORACIC OUTSIDE IMAGES (09/03/2025 4:16 AM EST) Anatomical Region Laterality Modality Radiographic Kristel ging 09/03/2025 4:16 AM EST David Francisco MD IMG XR PROCEDURES Edited Resul t - Final * XR MSK OUTSIDE IMAGES (09/03/2025 4:16 AM EST) Only the most recent of2 resultswithin the time period is included. Anatomical Region Laterality Modality Radiographic Kristel ging 09/03/2025 4:16 AM EST David Francisco MD IMG XR PROCEDURES Edited Resul t - Final * (ABNORMAL) Hemoglobin A1c (02/17/2018 11:50 AM [...] <6.0% Children and Adolescents <7.5% . Source: [place] [employer]. Standards of medical care in diabetes, 2017. Diabetes Care.2017:40 (suppl 1):S1-S135. . HbA1c assay performed by an ion-exchange chromatography method that is certified traceable to the DCCT. 02/17/2018 11:5 0 AM EDT 02/17/2018 12:19 PM EDT Sunita SALINAS LAB BLOOD ORDERABLES Final Result SUNQUEST from Last 3 Months or Most Recently Relevant to Health Maintenance Insurance [employer] Advance Directives * Full Code (Latest Code Status on File) Date Activated Date Inactivated Comments 09/04/2025 12:09 PM 09/07/2025 1:42 PM Question Answer Comments I have reviewed the capacity from the link above and, if needed, have updated to appropriate status: Yes * Full Code Date Activated Date Inactivated Comments 09/03/2025 11:35 AM 09/04/2025 12:09 PM Question Answer Comments I have reviewed the capacity from the link above and, if needed, have updated to appropriate status: Yes * Full Code Date Activated Date Inactivated Comments 01/19/2022 8:28 AM 01/20/2022 2:51 PM Question Answer Comments Patient has decision-making capacity? Yes Care Teams Press Catcher Relationship Specialty Start Date End Date Srinivasan Smith MD [address] [facility] [address] [place] [address] PCP - General Internal Medicine 01/20/22 Pita Martinez MD [address] [place] [phone] Referring Physician Interventional Cardiology 12/23/21
--- NOTE | 2025-09-24 18:25 | ED_ITS ---
<Statement entered by Maisha Joy DO - 09/25/25 01:08> I was consulted by the KALLI, and we discussed the complexity of problems being addressed. I approve the treatment and management plan for this patient's care in the emergency department, thus performing a substantial portion of the medical decision making. Maisha Joy DO Discharge Plan Disposition Patient Disposition: Home, Self-Care Condition: Good Prescriptions Prescriptions: New cefdinir 300 mg capsule 300 mg PO BID 7 Days Qty: 14 0RF No Action isosorbide mononitrate 30 mg tablet extended release 24 hr 30 mg PO DAILY Jardiance 25 mg tablet 25 mg PO DAILY Patient Comments: TAKE 1 TABLET BY MOUTH ONCE DAILY IN THE MORNING levothyroxine 137 mcg tablet 137 mcg PO DAILY memantine 5 mg tablet 5 mg PO BID 90 Days Qty: 180 11RF Viberzi 75 mg tablet 75 mg PO BID Qty: 60 5RF Rx Instructions: must administer with a meal/food diphenoxylate-atropine 2.5-0.025 mg tablet 1 tab PO TID Qty: 90 5RF Rx Instructions: Take 1 tablet by mouth three times a day colesevelam [WelChol] 3.75 gram powder in packet 3,750 mg PO DAILY Qty: 30 5RF Rx Instructions: must dilute powder in liquid before taking carvedilol 12.5 MG tablet 12.5 mg PO BID aspirin [Aspir-81] 81 MG tablet,delayed release (DR/EC) 81 mg PO DAILY escitalopram oxalate 10 mg tablet 10 mg PO DAILY atorvastatin 80 mg tablet 80 mg PO DAILY fish oil-dha-epa 1 EACH capsule 1 each PO DAILY biotin 2,500 MCG capsule 2,500 mcg PO DAILY sulfamethoxazole-trimethoprim [Bactrim DS] 800-160 mg tablet 1 tab PO BID 5 Days Qty: 10 0RF Referrals Follow up/Referrals: Tara Pollard, ENVIRONMENTAL ADVISOR [Primary Care Provider, Medical] - See instructions Activity Restrictions/Add. Instructions Additional Instructions/Restrictions: Please return to the emergency department with any worsening signs or symptoms. Please continue to take all your at home medication as prescribed and continue to follow your postoperative instructions. Please keep your appointment with the orthopedic surgery team in the morning. Please follow-up with your PCP and other doctors in the upcoming days/weeks. Clinical Impressions Clinical Impression: Bilateral edema of lower extremity, UTI (urinary tract infection) Instructions Patient Instructions: DI for Urinary Tract Infection (UTI), DI for Bilateral Peripheral Edema Print Language Print Language: Ivorian Discharge ED Provider: Maisha Joy General Adult HPI General Chief complaint: Skin/Abscess/Foreign Body Stated complaint: leg swelling Time Seen by Provider: 09/24/25 18:14 Mode of Arrival: EMS Source of Information: Patient Description of Symptoms (Recalled from ER Triage Doc. by RN): Pt arrives via [facility] from home for evaluation of bilateral leg swelling. Pt states she had hip surgery and is supposed to have the yasmeen removed tomorrow. Pt denies any pain but states her left leg has draining yellow drainage. that started 2 days ago. Bruising noted to left leg. Pt has strong pulses bilaterally and brisk cap refill. History of Present Illness HPI narrative: 85-year-old female presents to the emergency department via EMS with left lower extremity swelling that noticed 1 to 2 days ago, by home health aide, after her leg was unwrapped today, thus prompted emergency department visit, patient denies any pain, patient is 20 days status post left intertrochanteric hip fracture repair at [facility]. Patient has any fever chills chest pain shortness of breath, no nausea vomiting abdominal pain no constipation no diarrhea no urinary symptomatology, patient is a former smoker, denies any alcohol or drug use, denies any overt leg pain, has been following her postoperative restrictions as currently directed. Had orthopedic follow-up on September 19 and September 20, 2025, had postoperative x-rays performed, postoperative blood work, and DVT ultrasound which were without DVT all which was unremarkable when reviewing patient's MyChart at the bedside with family. Other past medical history is consistent with NARAYAN, hypertension, hyperlipidemia, hypothyroidism, T2DM, IBS. Initial triage vitals notable for hypertension otherwise unremarkable. Please note that above description of symptoms, in this electronic medical record under categorization of recalled from ER triage doctor by RN are reflective of an initial nursing assessment, however, is not reflective of my full history and physical exam that was personally taken and clarified. Consequentially, this preceding description of symptoms, which may include the patient's categorized chief complaint in the EMR, do not reflect my personal clinical impression, and the ultimate description of history of present illness and patient stated complaints should be deferred to this section of the note. Unless stated otherwise or congruent with this section of the note, additional signs, symptoms, or incongruence should be interpreted as inaccurate with my clinical impression. Onset (ago): day(s) Related Data Home Medications ?Medication ?Instructions ?Recorded ?Confirmed aspirin 81 mg tablet,delayed 81 mg PO DAILY thinner 07/18/25 release (Aspir-) carvedilol 12.5 mg tablet 12.5 mg PO BID blood pressur e 10/18/18 07/18/25 biotin 2,500 mcg capsule 2,500 mcg PO DAILY Supplemen t 06/04/21 07/18/25 fish oil-dha-epa 1,200 mg-144 1 each PO DAILY Suppleme nt 06/04/21 07/18/25 mg-216 mg capsule isosorbide mononitrate 30 mg 30 mg PO DAILY High blood pressure 08/20/22 07/18/25 tablet,extended release 24 hr atorvastatin 80 mg tablet 80 mg PO DAILY Cholesterol 0 10/20/22 07/18/25 escitalopram oxalate 10 mg tablet 10 mg PO DAILY Anxie ty 04/01/23 07/18/25 empagliflozin 25 mg tablet 25 mg PO DAILY 12/14/23 (Jardiance) levothyroxine 137 mcg tablet 137 mcg PO DAILY 08/22/24 07/18/25 Previous Rx's ?Medication ?Instructions ?Recorded memantine 5 mg tablet 5 mg PO BID 90 days #180 tab s 03/01/25 diphenoxylate-atropine 2.5 1 tab PO TID #90 tabs 03/07 mg-0.025 mg tablet eluxadoline 75 mg tablet (Viberzi) 75 mg PO BID #60 ta bs 07/18/25 sulfamethoxazole 800 1 tab PO BID 5 days #10 tabs 08/29/25 mg-trimethoprim 160 mg tablet (Bactrim DS) colesevelam 3.75 gram oral powder 3,750 mg PO DAILY #3 0 ea 09/13/25 packet (WelChol) cefdinir 300 mg capsule 300 mg PO BID 7 days #14 cap s 09/24/25 Allergies Allergy/AdvReac Type Severity Reaction Status Date / Time No Known Allergies Allergy Verified 08/29/25 14:56 PFSH [facility] Disclaimer: The information contained in this section may have been updated after the patient was seen, as this information can be updated by other users. Medical History T2DM (type 2 diabetes mellitus) Coronary artery disease Hyperlipidemia Hypertension Surgical History H/O heart artery stent H/O: hysterectomy No history of previous surgery Family History Other Cancer Coronary artery disease Diabetes Heart attack Stroke Social History Smoking Status: Never smoker alcohol intake: never substance use type: denies use current occupational status: employed Travel in the last 8 weeks?: None household members: spouse housing: house marital status: number of children: 2 caffeine: No Have you lived/traveled outside US in past 30 days?: No Contact w/someone who lives/traveled outside US past 30 days?: No Exposure to someone with infectious disease in past 14 days?: No Do you have a fever (greater than 100.4 F or 38 C)?: No Have you tested positive for COVID-19?: No Exposed to someone with COVID-19 in past 14 days?: No Do you have a sore throat?: No Do you have a cough?: No Do you have any weakness?: No Do you have any diarrhea?: No Are you experiencing any unusual bleeding?: No Do you have any muscle aches/pain?: No Do you have any abdominal pain?: No Are you experiencing loss of taste or smell?: No Other Medical History Have you received the Flu Vaccine for this season: No Have you received the Pneumonia Vaccine: Yes ROS Obtained: Yes All systems reviewed & no additional complaints except as documented Physical Exam General General appearance: alert and in no apparent distress Head Head exam: atraumatic and normocephalic Eye Eye exam: Present PERRL and EOMI ENT ENT exam: Present mucous membranes moist Neck Neck exam: Present normal inspection Chest Chest inspection: Present normal inspection and symmetric chest wall rise Respiratory Respiratory exam: Present normal lung sounds bilaterally; Absent respiratory distress Cardiovascular Cardiovascular exam: Present regular rate and normal rhythm Abdominal Exam Abdominal exam: Present soft; Absent tenderness, guarding or rebound Extremities Exam Extremities exam: Present edema and other (Notable for 3+ lower extremity pitting edema, on LLE, 2+ RLE pitting edema. Some ecchymosis,/dependent edema is present, with some lymphedema/possible serous drainage from lower extremities, otherwise neurovascular intact yasmeen in place, no pain to palpation over the intertrochanteric on the left); Absent normal inspection, full ROM or tenderness Neurological Exam Neurological exam: Present alert and oriented X3 Psychiatric Psychiatric exam: Present normal affect Skin Skin exam: Present warm and dry Medical Decision Making Medical Records Medical records reviewed: Yes I reviewed the patient's medical records. Screening: Per USPSTF and CDC recommendations, given the prevalence of disease in our region, it is our hospital?s policy to screen for HIV and viral Hepatitis for all patients aged 18 and over and those with ongoing risk factors. Terry Inquiry Pt receiving controlled substance: No Terry was queried for this patient: No Vital Signs: 09/24/25 18:11 09/24/25 19:01 09/24/25 19:01 Temperature 98.3 F Temperature Source Oral Pulse Rate 62 Pulse Rate [Right] 64 Respiratory Rate 18 13 Blood Pressure 181/71 H Blood Pressure [Right Arm] 204/80 H Blood Pressure Mean 107 Blood Pressure Mean [Right Arm] 121 02 Sat by Pulse Oximetry 97 97 Oxygen Delivery Method Room Air Room Air 09/24/25 19:26 Temperature Temperature Source Pulse Rate Pulse Rate [Right] Respiratory Rate Blood Pressure 172/68 H Blood Pressure [Right Arm] Blood Pressure Mean 102 Blood Pressure Mean [Right Arm] 02 Sat by Pulse Oximetry Oxygen Delivery Method Lab Data Lab results reviewed: Yes I reviewed the patient's lab results. Lab Results 09/24/25 18:11: WBC 3.3 L, RBC 2.91 L, Hgb 9.1 L, Hct 29.6 L, MCV 101.7 H, MCH 31.3 H, MCHC 30.7 L, RDW 19.9 H, Plt Count 146, MPV 12.3 H, Neut % (Auto) 62.7, Lymph % (Auto) 18.0, [place] % (Auto) 15.6 H, Eos % (Auto) 2.8, Baso % (Auto) 0.6, Neut # (Auto) 2.1, Lymph # (Auto) 0.6 L, [place] # (Auto) 0.5, Eos # (Auto) 0.1, Baso # (Auto) 0.0, PT 11.2, INR 1.01, Sodium 135 L, Potassium 4.2, Chloride 104, Carbon Dioxide 29, Anion Gap 6.2, BUN 27 H, Creatinine 1.20 H, Estimated Creat Clear 33, Estimated GFR 43 L, Est GFR ( Amer) 52 L, Glucose 129 H, L actate 0.6 L, Calcium 9.6, Magnesium 1.9, Total Bilirubin 0.9, AST 39 H, ALT 23, Alkaline Phosphatase 125, Troponin I < 0.01, NT-Pro-B Natriuret Pep 3870 H, Total Protein 6.4, Albumin 3.6, Globulin 2.8, Albumin/Globulin Ratio 1.3 09/24/25 19:53: Urine Color Yellow, Urine Appearance Clear, Urine pH 6.0, Ur Specific Mallie <= 1.005, Urine Protein Negative, Urine Glucose (UA) 2+, Urine Ketones Negative, Urine Blood Negative, Urine Nitrate Negative, Urine Bilirubin Negative, Urine Urobilinogen 0.2, Ur Leukocyte Esterase 1+ A, Urine RBC None, Urine WBC 10-20, Ur Squamous Epith Cells 3-5, Urine Bacteria 4+ 09/24/25 18:11 09/24/25 18:11 Orders (Tests/Meds): ED MEDICATIONS Discontinued Medications Generic Name Dose Route Start Last Admin Trade Name Freq PRN Reason Stop Dose Admin Iopamidol 120 ml 09/24/25 19:39 09/24/25 19:40 Iopamidol-370 (76%);100ml Bottle IV 09/24/25 19:40 120 ml ONCE ONE Administration Sodium Chloride 10 ml 09/24/25 19:39 09/24/25 19:40 Sodium Chloride 0.9% 10ml Syr (Rad Only) IV 09/24/25 19:40 10 ml ONCE ONE Administration Sodium Chloride 50 ml 09/24/25 19:39 09/24/25 19:40 0.9 % Sodium Chloride 50 Ml Vial IV 09/24/25 19:40 50 ml ONCE ONE Administration ORDERS Category Date Time Status CT angio abdomen/femoral Stat Cat Scan 09/24/25 18:42 Completed XR chest portable Stat Exams 09/24/25 18:41 Completed CRP [C-Reactive Protein] Stat Lab 09/24/25 18:11 Received Complete Blood Count Auto Diff Stat Lab 09/24/25 18:11 Completed Comprehensive Metabolic Panel Stat Lab 09/24/25 18:11 Completed ESR [Erythrocyte Sedimentation Rate] Stat Lab 09/24/25 18:11 Received Lactic Acid Stat Lab 09/24/25 18:11 Completed Magnesium Stat Lab 09/24/25 18:11 Completed NT Pro Brain Natriuretic Pep. Stat Lab 09/24/25 18:11 Completed PT INR [Prothrombin Time INR] Stat Lab 09/24/25 18:11 Completed Troponin I Q3H Lab 09/24/25 21:45 Ordered Troponin I Q3H Lab 09/25/25 00:45 Ordered Troponin I Stat Lab 09/24/25 18:11 Completed Urinalysis and Microscopic Stat Lab 09/24/25 19:53 Completed Urine Culture Stat Micro 09/24/25 19:53 Received Medical Decision Narrative: 85-year-old female presents to the emergency department with left lower extremity swelling and serous discharge for the last several days, differential diagnosis include but not limited to cellulitis, osteomyelitis, cardiac arrhythmia, electrolyte disturbance, new onset/CHF exacerbation, lymphedema, dependent edema, among others. I discussed this patient's case with the attending physician Dr. Joy Will obtain basic laboratory studies, EKG, chest x-ray, CT angio abdomen femoral runoff, basic laboratory studies, lactic acid along magnesium level proBNP PT/INR, troponin and urinalysis. CBC is notable for neutropenia 3.3, appears somewhat chronic, erythrocyte opinion at 2.9, hemoglobin is 9.1 hematocrit is 29.6, MCV is elevated at 101.7, otherwise unremarkable. No lactic acidosis CMP is notable for BUN elevation 27 creatinine elevation at 1.2, actually improved since previous CMP, minimal AST elevation at 39, troponin within normal limits, proBNP is mildly elevated at 3870, which is increased from baseline. Coags within normal limits Reviewed the patient's chest x-ray along the corresponding radiologic report, no focal airspace opacity, trace left pleural effusion. Urinalysis is notable for 2+ glucose urea, negative ketones, negative hematuria negative nitrites, 1+ leukocyte esterase Microscopic analysis is notable for 10-20 WBCs 2-5 squamous epithelial cells and 4+ urine bacteria. Reviewed the patient's CTA abdomen pelvis femoral with runoff along the corresponding radiologic reports, no significant stenosis or occlusion normal three-vessel runoff into the feet bilaterally, status post left femoral ORIF with unhealed fracture fragments from the hardware expected postoperative appearance, diffuse bilateral flank and bilateral lower extremity edema likely representing fluid overload, perhaps slightly slightly asymmetric edema on the left, small rim-enhancing fluid collections subadjacent to the surgical yasmeen in the left flank and left hip possibly seromatous or representing abscess, correlate clinically, consider fluid aspiration, interval migration of large right renal stone in the right renal pelvis there is new moderate right hydronephrosis, intermediate left left renal cortical lesion. 1.6 cm in size, arterially enhancing 8 mm focus in the right liver not visualized on prior CT, possible a flash filling hemangioma, small bilateral pleural effusion, right lower lobe nodules measuring 7 mm similar to prior CT. I discussed this patient's case with [facility] orthopedic surgeon on- call Dr. Edvin Dash at approximately 9:58 PM, he would like me to add on inflammatory markers to include ESR and CRP, he reviewed the patient's imaging, believes this is not abscess based on scan, more seromatous. I will prescribe the patient cefdinir 300 mg p.o. twice daily for 7 days for urinary tract infection. Patient has follow-up with orthopedic surgery team tomorrow at [facility] advised him to keep this appointment. Patient family voiced understanding and agreed with the current treatment plan/discharge plan. Patient given strict ED return precautions will not wait on inflammatory markers will not foreign exchange clerk based on orthopedic consultation. Will give first dose of p.o. cefdinir 300 mg in the emergency department. Critical Care Critical Care Time Critical Care Time: No
--- NOTE | 2025-09-24 18:41 | XR_ITS ---
PROCEDURE INFORMATION: Exam: XR Chest Exam date and time: 09/24/2025 6:47 PM Age: 85 years old Clinical indication: Other: Postop state TECHNIQUE: Imaging protocol: Radiologic exam of the chest. Views: 1 view. COMPARISON: CR XR CHEST PORTABLE 09/03/2025 4:16 AM FINDINGS: Lungs: No focal airspace opacity. Pleural spaces: No pneumothorax . Trace left pleural effusion. Heart/Mediastinum: Heart size cannot be accurately assessed in this projection. TAVR. Bones/joints: Unremarkable. IMPRESSION: 1. No focal airspace opacity. 2. Trace left pleural effusion.
--- NOTE | 2025-09-24 18:42 | CT_ITS ---
PROCEDURE INFORMATION: Exam: CTA Abdominal Aorta and Bilateral Lower Extremities (Run-off) With Contrast Exam date and time: 09/24/2025 7:39 PM Age: 85 years old Clinical indication: Other: Lle swelling; Additional info: S/P left hip replacement, lle swelling, redness. PT had left hip replacement surgery on 09/04/2025 TECHNIQUE: Imaging protocol: Computed tomographic angiography of the of the abdominal aorta, pelvis and bilateral lower extremities with contrast. 3D rendering (Not supervised by radiologist): MIP and/or 3D reconstructed images were created by the technologist. Radiation optimization: All CT scans at this facility use at least one of these dose optimization techniques: automated exposure control; mA and/or kV adjustment per patient size (includes targeted exams where dose is matched to clinical indication); or iterative reconstruction. Contrast material: ISOVUE; Contrast volume: 120 ml; Contrast route: INTRAVENOUS (IV); COMPARISON: CT ABD/PELVIS W/ ORAL AND IV 01/30/2025 9:23 AM FINDINGS: Aorta: Atherosclerotic intimal calcifications. No aortic aneurysm. No aortic dissection. Celiac and mesenteric arteries: No occlusion or significant stenosis. Renal arteries: No occlusion or significant stenosis. Right iliac arteries: Atherosclerotic intimal calcifications. No occlusion or significant stenosis. Right femoral/popliteal arteries: Mild focal stenoses of the distal superficial femoral artery and popliteal artery. No occlusion or significant stenosis. Right infrapopliteal arteries: Normal three-vessel runoff into the foot. Left iliac arteries: Atherosclerotic intimal calcifications. No occlusion or significant stenosis. Left femoral/popliteal arteries: No occlusion or significant stenosis. Left infrapopliteal arteries: Normal three-vessel runoff into the foot. Lungs: Lung nodules in the right lower lobe measuring up to 7 mm, unchanged since prior CT on 01/30/2025. Pleural spaces: Small bilateral pleural effusions with adjacent atelectasis. Liver: 8 mm enhancing focus in hepatic segment 6 (series 7, image 66). Punctate left hepatic calcifications. Gallbladder and biliary ducts: The gallbladder is underdistended, limiting its evaluation. No radiopaque cholelithiasis. No biliary ductal dilatation. Pancreas: Unremarkable. No ductal dilation. Spleen: Scattered small splenic calcifications. Nonspecific. Adrenal glands: Unremarkable. Kidneys and ureters: Symmetric bilateral renal cortical enhancement. 2 cm right renal stone has migrated to the right renal pelvis. There is moderate right hydronephrosis, new since prior exam. Left lower pole stones measuring up to 1.4 cm similar to prior exam. Bilateral simple renal cysts measuring up to 1.9 cm on the left, 1.6 cm on the right. Additional bilateral hypoattenuating foci too small to characterize. 1.6 cm exophytic left renal cortical lesion arising from the posterior midpole, indeterminate, slightly increased size since prior CT on 01/30/2025 (series 7, image 54; previously 1.4 cm). Stomach and bowel: The stomach is mildly distended and contains debris. No bowel obstruction. Colonic diverticulosis without acute diverticulitis. Appendix: No evidence of appendicitis. Urinary bladder: Unremarkable. Reproductive: Hysterectomy. Adnexa are unremarkable. Intraperitoneal space: Small pelvic free fluid, possibly physiologic. No intraperitoneal free air. Lymph nodes: No abdominal or pelvic adenopathy Bones/joints: Status post left femoral neck ORIF. Unhealed fracture fragments around the left hip hardware. Chronic left tibial fracture status post ORIF. Soft tissues: Bilateral dependent flank edema. Surgical yasmeen in the left flank with small subjacent fluid collection measuring 3.8 x 3.0 x 1.5 cm with mild suggested rim enhancement. Small fluid collection subjacent to the surgical yasmeen in the left hip soft tissues measuring 3.1 x 1.4 cm, with similar appearance. Diffuse bilateral lower extremity edema, perhaps slightly asymmetric to the left. No focal fluid collection. IMPRESSION: 1. No significant stenosis or occlusion. Normal three-vessel runoff into the feet bilaterally. 2. Status post left femoral ORIF with unhealed fracture fragments around the hardware, expected postoperative appearance. 3. Diffuse bilateral flank and bilateral lower extremity edema, likely representing fluid overload. Perhaps slightly asymmetric edema on the left. 4. Small rim enhancing fluid collections subjacent to the surgical yasmeen in the left flank and left hip, possibly seromatous or representing abscess. Correlate clinically. Consider fluid aspiration. 5. Interval migration of a large right renal stone to the right renal pelvis. There is new moderate right hydronephrosis. 6. Indeterminate left renal cortical lesion measuring 1.6 cm, slightly increased in size since prior CT abdomen and pelvis on 01/30/2025. Recommend nonemergent contrast-enhanced MRI. 7. Arterially enhancing 8 mm focus in the right liver, not visualized on prior CT, possibly a flash filling hemangioma. This may be further evaluated with contrast-enhanced MRI as well. 8. Small bilateral pleural effusions. 9. Right lower lobe nodules measuring up to 7 mm are similar to prior CT on 01/30/2025.
[2025-09-24 18:59] LABS: Hematocrit 29.6 % (37.0-47.0); Hemoglobin 9.1 g/dL (12.2-16.2); Immature Granulocytes % 0.3 %; Mean Corpuscular HGB Conc 30.7 g/dL (31.8-35.4); Mean Corpuscular Hemoglobin 31.3 pg (27.0-31.2); Mean Corpuscular Volume 101.7 fl (81-99); Nucleated Red Blood Cells % 0 %; Platelet Count 146 K/mm3 (142-424); Red Blood Count 2.91 M/mm3 (4.20-5.40); Red Cell Distribution Width-SD 72.7 fL; White Blood Count 3.3 K/mm3 (4.8-10.8)
[2025-09-24 19:03] LABS: Alanine Aminotransferase 23 U/L (12-78); Albumin Level 3.6 g/dl (3.5-5.0); Albumin/Globulin Ratio 1.3 (1.1-1.8); Alkaline Phosphatase 125 U/L (38-126); Anion Gap 6.2 mEq/L (5-15); Aspartate Amino Transferase 39 U/L (14-36); Bilirubin,Total 0.9 mg/dl (0.2-1.3); Blood Urea Nitrogen 27 mg/dl (7-17); Calcium 9.6 mg/dl (8.4-10.2); Carbon Dioxide 29 mmol/L (22.0-30.0); Chloride 104 mmol/L (98-107); Creatinine Clearance Estimated 33 mL/min (50-200); Creatinine,Serum 1.20 mg/dl (0.52-1.04); Estimated Glomerular Filt Rate 43 ml/min (>60); GFR (African American) 52 ML/MIN (>60); Globulin 2.8 g/dL (1.3-3.2); Glucose 129 mg/dl (74-100); Magnesium 1.9 mg/dl (1.6-2.3); Potassium 4.2 mmoL/L (3.5-5.1); Sodium 135 mmol/L (136-145); Total Protein,Serum 6.4 g/dl (6.3-8.2)
[2025-09-24 19:05] LABS: INR 1.01 (0.9-1.1); Prothrombin Time 11.2 seconds (10.1-12.5)
--- NOTE | 2025-09-24 19:11 | ECG_ITS ---
APPROVED REPORT Exam: Resting ECG HR:65 bpm ECG Measurements Heart Rate [address] 175 P 75 QRSd 81 QRS -1 QT 398 T 67 QTc 409 Conclusion Normal sinus rhythm without acute ST or T wave changes concerning for ischemia Electronically signed by : Maisha Joy, 09/26/2025 01:02:33
[2025-09-24 19:15] LABS: NT Pro Brain Natriuretic Pep. 3870 pg/mL (0-450); Troponin I < 0.01 ng/ml (0.00-0.034)
[2025-09-24] MEDS: SODIUM CHLORIDE 0.9% 10ML SYR (RAD ONLY) 10 ML IV (19:40)
[2025-09-24] MEDS: IOPAMIDOL-370 (76%);100ML BOTTLE 120 ML IV (19:40)
[2025-09-24] MEDS: 0.9 % SODIUM CHLORIDE 50 ML VIAL IV (19:40)
[2025-09-24 19:58] LABS: Bilirubin,Urine Negative (Negative); Color,Urine YELLOW (Yellow); Glucose,Urine (UA) 2+ (Negative); Ketones,Urine Negative (Negative); Leukocyte Esterase,Urine 1+ (Negative); Microscopic, Urine URINE MICROSCOPIC (MICROSCOPIC); PH,Urine 6.0 (5.0-8.5); Protein,Urine Negative (Negative); Specific Gravity, Urine <= 1.005 (1.005-1.030); Urobilinogen,Urine 0.2 EU/dl (0.2)
[2025-09-24 20:27] LABS: Bacteria,Urine 4+ /lpf
--- NOTE | 2025-09-24 21:00 | PC.NURSE ---
Called [facility] regarding pt consult, stated they would call back
[2025-09-24 22:17] LABS: C-Reactive Protein 4.5 mg/L (0-4)
[2025-09-24] MEDS: CEFDINIR 300MG CAPSULE 300 MG PO (22:17)
--- NOTE | 2025-09-27 08:48 | PC.NURSE ---
Urine culture reviewed by Dr. Bruce. Bactrim DS BID x 7 days prescribed. Attempted to call patient. No answer, left message for patient to return call.
--- OUTSIDE RECORDS SUMMARY | 2025-11-18 19:00 | XMS_ITS | Clinical Summary ---
Author Organization Unknown Care Team Providers Care Call Person Name Role Phone ABRAN ARVIZU, DANA Unavailable Unavailable SNOW RN, ANGELA Unavailable Unavailable SANJANA CARRANZAN, KAJAL Unavailable Unav ailable Payers Payer Name Policy Type Policy Number Effective Date Expira tion Date PAVELAUTH [id number] SECONDARYONLY.SHERI DGM [id number] Problems Condition Name Condition Details Condition Category Status Onset Date Resolution Date Last Treatment Date Treating Clinician Comments DISPL INTERTROCH FX L FEMUR, SUBS FOR CLOS FX W ROUTN HEAL Active 2024-10 00:00: 00 Allergies, Adverse Reactions, Alerts Allergy Name Allergy Type Status Severity Reaction(s) Onset Date Inactive Date Treating Clinician Comments AMOXICILL IN...ALL Propensity to adverse reactions Active 2025-09 13:08:3 8 Vital Signs Vital Name Observation Time Observation Value Commen ts Temperature 2025-09-24 16:45:00.000 97.9 [degF] Temperature 2025-09-21 13:14:00.000 98.4 [degF] BMI (%) 2025-09-21 13:11:16.000 20 kg/m2 Height 2025-09-21 13:11:07.000 62 [in_us] Pulse 2025-09-24 16:45:00.000 66 /min Pulse 2025-09-21 13:14:00.000 60 /min O2 Saturation (%) 2025-09-24 16:45:00.000 97 % Respirations 2025-09-24 16:45:00.000 16 /min Respirations 2025-09-21 13:14:00.000 18 /min Weight (lbs) 2025-09-21 13:11:16.000 110 [lb_av] Systolic Blood Pressure 2025-09-24 16:45:00.000 166 mm [Hg] Systolic Blood Pressure 2025-09-21 13:14:00.000 128 mm [Hg] Diastolic Blood Pressure 2025-09-24 16:45:00.000 66 mm [Hg] Diastolic Blood Pressure 2025-09-21 13:14:00.000 60 mm [Hg] Plan of Treatment Planned Activity Planned Date Details Comments Future Scheduled Test RN TO OBSE RVE, ASSESS, EVALUATE, AND DEVELOP AN INDIVIDUALIZED PLAN OF CARE. AGENCY MAY ACCEPT ORDERS FROM CONSULTING PHYSICIANS RN TO OBSERVE AND ASSESS, STIFF STRAW HAT WASHER/HOTEL CONCIERGE TO OBSERVE FOR RISK FOR FALLS AND INSTRUCT IN FALL PREVENTION, HOME SAFETY, MEDICATION MANAGEMENT, INFECTION PREVENTION, AND NUTRITION MANAGEMENT. RN/STIFF STRAW HAT WASHER/HOTEL CONCIERGE NURSE MAY PERFORM O2 SATURATION LEVEL ON ADMISSION AND PRN FOR RN TO ASSESS/STIFF STRAW HAT WASHER TO OBSERVE PATIENT, WITH NOTIFICATION TO THE PHYSICIAN IF SATURATION IS 90% IN THE ABSENCE OF MORE SPECIFIC PARAMETERS FROM THE PHYSICIAN. AGENCY MAY PERFORM A RESUMPTION OF CARE VISIT FOLLOWING ANY HOSPITAL ADMISSION. RN/STIFF STRAW HAT WASHER/HOTEL CONCIERGE TO MONITOR CO-MORBID CONDITIONS LISTED ON THE PLAN OF CARE AND ANY NEW CONDITIONS THAT PRESENT THEMSELVES DURING THIS EPISODE TO IDENTIFY CHANGES AND INTERVENE TO MINIMIZE COMPLICATIONS. [code = RN TO OBSERVE, ASSESS, EVALUATE, AND DEVELOP AN INDIVIDUALIZED PLAN OF CARE. AGENCY MAY ACCEPT ORDERS FROM CONSULTING PHYSICIANS RN TO OBSERVE AND ASSESS, STIFF STRAW HAT WASHER/HOTEL CONCIERGE TO OBSERVE FOR RISK FOR FALLS AND INSTRUCT IN FALL PREVENTION, HOME SAFETY, MEDICATION MANAGEMENT, INFECTION PREVENTION, AND NUTRITION MANAGEMENT. RN/STIFF STRAW HAT WASHER/HOTEL CONCIERGE NURSE MAY PERFORM O2 SATURATION LEVEL ON ADMISSION AND PRN FOR RN TO ASSESS/STIFF STRAW HAT WASHER TO OBSERVE PATIENT, WITH NOTIFICATION TO THE PHYSICIAN IF SATURATION IS 90% IN THE ABSENCE OF MORE SPECIFIC PARAMETERS FROM THE PHYSICIAN. AGENCY MAY PERFORM A RESUMPTION OF CARE VISIT FOLLOWING ANY HOSPITAL ADMISSION. RN/STIFF STRAW HAT WASHER/HOTEL CONCIERGE TO MONITOR CO-MORBID CONDITIONS LISTED ON THE PLAN OF CARE AND ANY NEW CONDITIONS THAT PRESENT THEMSELVES DURING THIS EPISODE TO IDENTIFY CHANGES AND INTERVENE TO MINIMIZE COMPLICATIONS.] Future Scheduled Test MEDICATION MANAGEMENT; RN/STIFF STRAW HAT WASHER/HOTEL CONCIERGE TO REVIEW MEDICATIONS FOR INTERACTIONS, EFFECTIVENESS OF DRUG THERAPY, AND SIGNS/SYMPTOMS OF ADVERSE REACTIONS. MAY INSTRUCT AND REINFORCE MEDICATION TEACHING RELATED TO THE USE OF MEDICATIONS, DOSAGE, FREQUENCY, PURPOSE, SIDE EFFECTS, AND TO REPORT COMPLICATIONS. [code = MEDICATION MANAGEMENT; RN/STIFF STRAW HAT WASHER/HOTEL CONCIERGE TO REVIEW MEDICATIONS FOR INTERACTIONS, EFFECTIVENESS OF DRUG THERAPY, AND SIGNS/SYMPTOMS OF ADVERSE REACTIONS. MAY INSTRUCT AND REINFORCE MEDICATION TEACHING RELATED TO THE USE OF MEDICATIONS, DOSAGE, FREQUENCY, PURPOSE, SIDE EFFECTS, AND TO REPORT COMPLICATIONS.] Future Scheduled Test RISK FOR H OSPITALIZATION; RN TO ASSESS/TEACH, HOTEL CONCIERGE/STIFF STRAW HAT WASHER TO OBSERVE/TEACH PATIENT/CAREGIVER ON RISK FOR HOSPITALIZATION/EMERGENCY ROOM VISITS, TEACH SIGNS AND SYMPTOMS THAT PUT PATIENT AT RISK, WHEN TO NOTIFY NURSE/PHYSICIAN OF COMPLICATIONS/DECLINE, AND WHEN TO CALL 911. [code = RISK FOR HOSPITALIZATION; RN TO ASSESS/TEACH, HOTEL CONCIERGE/STIFF STRAW HAT WASHER TO OBSERVE/TEACH PATIENT/CAREGIVER ON RISK FOR HOSPITALIZATION/EMERGENCY ROOM VISITS, TEACH SIGNS AND SYMPTOMS THAT PUT PATIENT AT RISK, WHEN TO NOTIFY NURSE/PHYSICIAN OF COMPLICATIONS/DECLINE, AND WHEN TO CALL 911.] Future Scheduled Test DIABETES M ONITORING RN/HOTEL CONCIERGE/STIFF STRAW HAT WASHER TO MONITOR BLOOD SUGAR LOG FOR BLOOD SUGAR READINGS THAT ARE BEING CHECKED BY PHYSICAN PER HGBA1C Q 3 MONTHS . PATIENT THERAPEUTIC BLOOD SUGAR PARAMETERS ARE 80 TO 250 REPORT BLOOD SUGARS OUT OF RANGE TO PHYSICIAN. NURSE MAY PERFORM FINGER STICK BLOOD GLUCOSE NEEDED FOR SIGNS AND SYMPTOMS OF HYPO AND HYPERGLYCEMIA. RN/HOTEL CONCIERGE/STIFF STRAW HAT WASHER TO MONITOR ADHERENCE OF PERFORMING DIABETIC FOOT CARE AND MAY PERFORM DIABETIC FOOT CARE PRN. RN/HOTEL CONCIERGE/STIFF STRAW HAT WASHER TO MONITOR FOR ADHERENCE TO DIABETIC SELF-CARE AND MANAGEMENT INCLUDING MEDICATIONS. [code = DIABETES MONITORING RN/HOTEL CONCIERGE/STIFF STRAW HAT WASHER TO MONITOR BLOOD SUGAR LOG FOR BLOOD SUGAR READINGS THAT ARE BEING CHECKED BY PHYSICAN PER HGBA1C Q 3 MONTHS . PATIENT THERAPEUTIC BLOOD SUGAR PARAMETERS ARE 80 TO 250 REPORT BLOOD SUGARS OUT OF RANGE TO PHYSICIAN. NURSE MAY PERFORM FINGER STICK BLOOD GLUCOSE NEEDED FOR SIGNS AND SYMPTOMS OF HYPO AND HYPERGLYCEMIA. RN/HOTEL CONCIERGE/STIFF STRAW HAT WASHER TO MONITOR ADHERENCE OF PERFORMING DIABETIC FOOT CARE AND MAY PERFORM DIABETIC FOOT CARE PRN. RN/HOTEL CONCIERGE/STIFF STRAW HAT WASHER TO MONITOR FOR ADHERENCE TO DIABETIC SELF-CARE AND MANAGEMENT INCLUDING MEDICATIONS.] Future Scheduled Test RN TO ASSE SS/TEACH, STIFF STRAW HAT WASHER,HOTEL CONCIERGE TO OBSERVE AND TEACH MEASURES FOR RECOVERY AND SELF-MANAGEMENT POST HIP REPLACEMENT TO MINIMIZE COMPLICATIONS AND REDUCE RISK OF HOSPITALIZATION. [code = RN TO ASSESS/TEACH, STIFF STRAW HAT WASHER,HOTEL CONCIERGE TO OBSERVE AND TEACH MEASURES FOR RECOVERY AND SELF-MANAGEMENT POST HIP REPLACEMENT TO MINIMIZE COMPLICATIONS AND REDUCE RISK OF HOSPITALIZATION.] Future Scheduled Test RN/STIFF STRAW HAT WASHER/HOTEL CONCIERGE TO PERFORM/TEACH PATIENT/CAREGIVER WOUND CARE TO WEEPING EDEMA LLE IRRIGATE/CLEANSE WITH SALINE PLACE DSD DAILY AND PRN IF SOILED MAY APPLY SKIN BARRIER TO ANYA WOUND PRN TO PREVENT MACERATION AND PROTECT ANYA WOUND [code = RN/STIFF STRAW HAT WASHER/HOTEL CONCIERGE TO PERFORM/TEACH PATIENT/CAREGIVER WOUND CARE TO WEEPING EDEMA LLE IRRIGATE/CLEANSE WITH SALINE PLACE DSD DAILY AND PRN IF SOILED MAY APPLY SKIN BARRIER TO ANYA WOUND PRN TO PREVENT MACERATION AND PROTECT ANYA WOUND] Future Scheduled Test RN/STIFF STRAW HAT WASHER/HOTEL CONCIERGE TO PERFORM/TEACH INCISION CARE TO L HIP LEEP SALOMÓN CLEAN AND DRY UNTIL REMOVED AT ORTHO MAY APPLY SKIN BARRIER TO ANYA WOUND PRN TO PREVENT MACERATION AND PROTECT ANYA WOUND [code = RN/STIFF STRAW HAT WASHER/HOTEL CONCIERGE TO PERFORM/TEACH INCISION CARE TO L HIP LEEP SALOMÓN CLEAN AND DRY UNTIL REMOVED AT ORTHO MAY APPLY SKIN BARRIER TO ANYA WOUND PRN TO PREVENT MACERATION AND PROTECT ANYA WOUND] Future Scheduled Test RN TO ASSE SS/TEACH, STIFF STRAW HAT WASHER/HOTEL CONCIERGE TO OBSERVE/TEACH SURGICAL AFTERCARE MANAGEMENT TO AVOID HOSPITALIZATION. [code = RN TO ASSESS/TEACH, STIFF STRAW HAT WASHER/HOTEL CONCIERGE TO OBSERVE/TEACH SURGICAL AFTERCARE MANAGEMENT TO AVOID HOSPITALIZATION.] Future Scheduled Test PAIN MANAG EMENT; RN TO ASSESS AND TEACH, HOTEL CONCIERGE/STIFF STRAW HAT WASHER TO OBSERVE AND TEACH AND PROVIDE EDUCATION ON PAIN MANAGEMENT TECHNIQUES. [code = PAIN MANAGEMENT; RN TO ASSESS AND TEACH, HOTEL CONCIERGE/STIFF STRAW HAT WASHER TO OBSERVE AND TEACH AND PROVIDE EDUCATION ON PAIN MANAGEMENT TECHNIQUES.] Future Scheduled Test FALL REDUC TION MANAGEMENT; RN TO ASSESS AND OBSERVE, STIFF STRAW HAT WASHER/HOTEL CONCIERGE TO OBSERVE FALL RISK FACTORS AND EDUCATE PATIENT/CAREGIVER ON STRATEGIES TO MINIMIZE THE RISK OF FALLING. [code = FALL REDUCTION MANAGEMENT; RN TO ASSESS AND OBSERVE, STIFF STRAW HAT WASHER/HOTEL CONCIERGE TO OBSERVE FALL RISK FACTORS AND EDUCATE PATIENT/CAREGIVER ON STRATEGIES TO MINIMIZE THE RISK OF FALLING.] Future Scheduled Test PHYSICAL T HERAPIST TO EVALUATE FOR GAIT AND BALANCE [code = PHYSICAL THERAPIST TO EVALUATE FOR GAIT AND BALANCE] Future Scheduled Test OCCUPATION AL THERAPIST TO EVALUATE FOR SAFTEY IN ADL S [code = OCCUPATIONAL THERAPIST TO EVALUATE FOR SAFTEY IN ADL S] Future Scheduled Test SKILLED NU RSE TO OBTAIN CBC/CMP ON 09.24.25 PRN1 FOR INADEQUATE SPECIMEN [code = SKILLED NURSE TO OBTAIN CBC/CMP ON 09.24.25 PRN1 FOR INADEQUATE SPECIMEN] Goal Patient Goal - TO GET STRONG ER Goal Provider Goal - A PLAN OF CARE WILL BE ESTABLISHED THAT MEETS THE PATIENT S NEEDS. PATIENT WILL DEMONSTRATE OXYGEN SATURATION WITHIN NORMAL LIMITS OR PATIENT S OPTIMAL LEVEL ESTABLISHED BY THE PHYSICIAN THROUGHOUT CARE. CHANGES TO CO-MORBID CONDITIONS AND ANY NEW CONDITIONS WILL BE IDENTIFIED AND REPORTED TO THE PHYSICIAN. Goal Provider Goal - PATIENT/CAREGIVER TO VERBALIZE, AND CONSISTENTLY DEMONSTRATE EFFECTIVE, SAFE MANAGEMENT OF MEDICATION INCLUDING KNOWLEDGE OF EFFECTIVENESS, POTENTIAL SIDE EFFECTS AND DRUG REACTIONS AND WHEN TO CONTACT THE APPROPRIATE CARE PROVIDER. PATIENT/CAREGIVER WILL BE ABLE TO VERBALIZE UNDERSTANDING OF MEDICATION REGIMEN AND ACCURATELY TAKE MEDICATIONS PRESCRIBED WITHOUT ADVERSE EFFECTS BY 60 LORI Goal Provider Goal - PATIENT/CAREGIVER WILL VERBALIZE UNDERSTANDING OF SIGNS AND SYMPTOMS THAT PUT THE PATIENT AT RISK FOR HOSPITALIZATION /EMERGENCY ROOM VISITS, WHEN TO NOTIFY NURSE/PHYSICIAN OF COMPLICATIONS/DECLINE AND WHEN TO CALL 911 BY 60 DAYS Goal Provider Goal - BLOOD SUGARS WILL REMAIN WITHIN ESTABLISHED RANGES AND DIABETES CONTROLLED THROUGHOUT EPISODE. Goal Provider Goal - PATIENT/CAREGIVER WILL DEMONSTRATE UNDERSTANDING OF MEASURES FOR SELF-MANAGEMENT OF A HIP REPLACEMENT BY 60 DAY Goal Provider Goal - PATIENT / CAREGIVER WILL VERBALIZE/DEMONSTRATE ABILITY TO PERFORM WOUND CARE. WOUND STATUS WILL IMPROVE EVIDENCED BY A DECREASE IN SIZE, DRAINAGE, ABSENCE OF INFECTION, AND DECREASED PAIN BY 60 DAYS Goal Provider Goal - PATIENT / CAREGIVER WILL VERBALIZE / DEMONSTRATE ABILITY TO PERFORM WOUND CARE. WOUND STATUS WILL IMPROVE EVIDENCED BY A DECREASE IN SIZE, DRAINAGE, ABSENCE OF INFECTION, AND DECREASED PAIN BY 60 DAYS Goal Provider Goal - PATIENT/CAREGIVER WILL VERBALIZE/DEMONSTRATE POSTOPERATIVE CARE TO MINIMIZE COMPLICATION AND AVOID HOSPITALIZATIONS BY 60 DAYS Goal Provider Goal - PATIENT / CAREGIVER WILL VERBALIZE / DEMONSTRATE UNDERSTANDING OF PAIN CONTROL MEASURES BY 60 DAYS Goal Provider Goal - PATIENT/CAREGIVER WILL VERBALIZE/DEMONSTRATE UNDERSTANDING OF FALL RISK FACTORS AND IMPLEMENT STRATEGIES TO MINIMIZE FALL RISK. 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 2 PLUS PITTING EDEMA L FOOT TO L HIP , IMSTRUCTED PATIENT ON ELEVATING LEG MUCH POSSI LE, LIMITING SODIUM INTAKE, VERBALIZED UNDERSTANDING AND DENIES PAIN</paragraph> <paragraph>[Visit Date: 2024 by KAJAL ALLAN LPN]:</paragraph><paragraph>PT SEEN FOR SN[facility], SKILLED NEED FOR EDUCATION REGARDING MEDS, DISEASE PROCESS, WOUND AND LABS, HOMEBOUND WITH TAXING EFFORT REQUIRING ASSIST AND WALKER TO LEAVE HOME. ASSESSMENT COMPLETED CHARTED, MEDS REVIEWED NO CHANGES. PRESENT FOR VISIT</paragraph><paragraph></paragraph><paragraph>AFVSS OTHER THAN BP ELEVATED 166/66, ALERT AND ORIENTED WITH FORGETFULNESS. PTS LLE IS WEEPING TREMENDOUSLY NEAR THE GARCIA, AND IS SWOLLEN FROM THE TOES ALL THE WAY TO THE L HIP. LEAKING DARK GREEN AND YELLOW PURULENT DRAINAGE AT THE GARCIA. PT DENIES PAIN. SALOMÓN INTACT ON L HIP. EDEMA IS 4+ OR GREATER TO THE GREATER CALF AND GARCIA AREA AND EDEMA IS 2+ OR GREATER ON THE REST OF THAT EXTREMITY. RLE IS 2+ EDEMA. PT STATES SHE FEELS FINE. 5:10 SN CALLED 911. 5:20: EMS ARRIVE. 5:30: EMS TAKE HER AWAY IN AMBULANCE. IS BLIND BUT HAS HIS SON COMING OVER TO STAY WITH HIM. SN CALLED DR OSULLIVAN TO REPORT SITUATION, DRAINAGE, SWELLING, BLOOD PRESSURE, HOSPITAL ETC, LEFT VOICEMAIL. WHILE WAITING FOR THE AMBULANCE, SN KATHI ORDERED LABS FOR SA[facility]L BALL/DR OSULLIVAN. AFTER LEAVING, LABS DROPPED AT [facility]</paragraph> Encounters Start Date/Time End Date/Time Encounter Type Admission Type Attending Clinicians Care Facility Care Department Encounter ID Discharge Date Discharge Status Discharge Condition Discharge Reason Percent Goals Met 2025-09-21 00:00:00 2025-11-19 00:00:00 Outpatient NEW ADMISSION ANGELA ADAMSON [facility] [id number]
== END 2025-09-24 22:57 | disposition home or self-care (01) ==
PROVIDERS: Physician Assistant; Emergency Provider Student in an Organized Health Care Education/Training Program; PCP Nurse Practitioner Family
DX: N39.0 Urinary tract infection, site not specified (principal); R60.0 Localized edema; N13.0 Hydronephrosis with ureteropelvic junction obstruction; R70.0 Elevated erythrocyte sedimentation rate; R79.82 Elevated C-reactive protein (CRP); B96.20 Unspecified Escherichia coli [E. coli] as the cause of diseases classified elsewhere
CPT/HCPCS: 71045; 75635; 80053; 81001; 83605; 83735; 83880; 84484; 85025; 85610; 85651; 86140; 87086; 87088; 87186; 93005; 99284; 99285; Q9967